=== PATIENT | male | born 1935 | race Caucasian/White ===

== ENCOUNTER 2018-10-02 06:31 | Inpatient (IN) | payer BC, OTHER ==
[2018-10-02] VITALS (10 sets, daily range): BP systolic 100–118; BP diastolic 56–73; PULSE 62–96; RESP 16–27; Ht 172.7 cm; Wt 68.0 kg
[~2018-10-02] VITALS: Ht 172.7 cm; Wt 68.0 kg
[2018-10-02] MEDS ORDERED: SODIUM CHLORIDE 0.9% 1L BAG IV* STA (06:42)
[2018-10-02] MEDS ORDERED: CEFEPIME 2GM/50 ML (PMX) 50 ML IVPB STA (06:42)
[2018-10-02] MEDS ORDERED: VANCOMYCIN 1 GM (PMX) 250 ML IVPB ONE (07:00)
[2018-10-02] MEDS ORDERED: KETOROLAC 15 MG INJ IV STA (07:18)
[2018-10-02] MEDS ORDERED: ACETAMINOPHEN 325 MG SUPP PR ONE (07:30)
--- NOTE | 2018-10-02 07:39 | ERD ---
ER Documentation Chief Complaint Chief Complaint Low oxygen saturation HPI This is an 82-year-old male with a past medical history of hypertension, hypothyroidism, brain cancer, neurologically devastated and mostly unresponsive at baseline, chronic respiratory failure status post tracheostomy, ventilator dependence, dysphagia status post G-tube placement who is now presenting for decreased oxygen saturation at his half-way facility. The patient was evaluated this morning and found to have a low O2 saturation. He was suctioned, but his saturation reportedly remained low. At that time, an ambulance was called. By the time the paramedics arrived, the patient's oxygen saturation had improved to the high 90s to 100% on his baseline O2 requirements via ventilation. The patient did feel warm to the paramedics, and there was concern for a temperature. The patient is febrile and tachycardic in the emergency department today. History and physical is limited secondary to chronic clinical condition. ROS All systems reviewed and are negative except as per history of present illness. Medications Home Meds Reported Medications Tramadol Hcl* (Ultram*) 50 Mg Tablet, 50 MG GTB BID PRN for PAIN MANAGEMENT, TAB 10/02/18 Magnesium Hydroxide* (Milk Of Magnesia*) 400 Mg/5 Ml Oral.susp, 30 ML GTB DAILY, ML 10/02/18 Magaldrate/Simethicone* (Mag-Al Plus Suspension*) 30 Ml Oral.susp, 30 ML GTB Q4 PRN for GASTROINTESTINAL UPSET, ML 10/02/18 Ondansetron Hcl* (Zofran*) 4 Mg Tablet, 4 MG GTB Q6H PRN for NAUSEA AND OR VOMITING, TAB 10/02/18 Pantoprazole Sodium (Protonix) 40 Mg Granpkt.dr, 40 MG GTB DAILY MIX CONTENTS WITH APPLE SAUCE THEN FLUSH WITH 30ML APPLE JUICE 10/02/18 Levothyroxine Sodium* (Levoxyl*) 50 Mcg Tablet, 50 MCG GTB BEFORE BREAKFAST, #30 TAB 10/02/18 Polyvinyl Alcohol (Tears Again) 15 Ml Drops, 1 DRP BOTH EYES TID, BOTTLE 10/02/18 Metoprolol Tartrate* (Lopressor*) 25 Mg Tab, 25 MG GTB Q8, #60 TAB HOLD FOR SBP <110 OR HR<60 10/02/18 Atorvastatin* (Atorvastatin*) 40 Mg Tablet, 40 MG GTB QHS, #30 TAB 10/02/18 Aspirin* (Aspirin*) 325 Mg Tablet, 325 MG GTB DAILY, TAB 10/02/18 Lactobacillus Acidophilus/Pect (Acidophilus-Pectin Capsule) 1 Each Capsule, 1 EACH GTB DAILY, CAP 10/02/18 Acetaminophen* (Acetaminophen*) 650 Mg Tablet, 650 MG GTB Q4 PRN for MILD PAIN LEVEL 1-3, #30 TAB FOR FEVER AND TRACH CHANGE 10/02/18 Acetaminophen* (Acetaminophen*) 500 MG Extra Strength Tablet, 1000 MG GTB Q4 PRN for MODERATE PAIN LEVEL 4-6, TAB 10/02/18 Zinc Sulfate* (Zinc Sulfate*) 220 Mg Cap, 220 MG GTB DAILY, CAP 10/02/18 Ascorbic Acid* (Vitamin C*) 500 Mg Capsule.sa, 500 MG GTB DAILY, CAP 10/02/18 Multivitamin with Minerals (Daily Vitamin Formula-Minerals) 1 Each Tablet, 1 EACH GTB DAILY, TAB 10/02/18 Amino Acids/Protein Hydrolys (Pro-Stat Awc Liquid) 30 Ml Liquid, 30 ML GTB DAILY SUGAR FREE 10/02/18 Na Phos,M-B/Na Phos,Di-Ba (ENEMA [id number]) 133 Ml Enema, 133 ML RC EVERY 2 DAYS PRN for CONSTIPATION, ENEMA 10/02/18 Bisacodyl (Dulcolax) 10 Mg Supp.rect, 10 MG RC DAILY PRN for CONSTIPATION, SUPP.RECT 10/02/18 Docusate Sodium* (Colace*) 100 Mg Capsule, 100 MG GTB BID, #60 CAP 10/02/18 Allergies Allergies: Coded Allergies: No Known Allergy (Unverified , 10/02/18) PMhx/Soc History of Surgery: Yes (Tracheostomy, gastrostomy) Anesthesia Reaction: No Hx Neurological Disorder: Yes (Brain cancer) Hx Respiratory Disorders: Yes (Chronic respiratory failure status post tracheostomy, ventilator dependence) Hx Cardiac Disorders: Yes (Hypertension) Hx Psychiatric Problems: No Hx Miscellaneous Medical Probl: Yes (Frequent falls, dysphagia status post gastrostomy, right clavicle fracture) Hx Alcohol Use: No Hx Substance Use: No Hx Tobacco Use: No Smoking Status: Unknown if ever smoked FmHx Family History: No diabetes Physical Exam Vitals Vital Signs Date Temp Pulse Resp B/P (MAP) Pulse Ox O2 O2 Flow FiO2 Time Delivery Rate 10/02/18 98.5 94 12 100/54 100 [place] 10:13 (69) l Ventilato r 10/02/18 98.8 95 14 106/59 100 [employer] 09:05 (75) l Ventilato r 10/02/18 98.9 106 16 108/61 100 [employer] 08:57 (77) l Ventilato r 10/02/18 39.6 07:43 10/02/18 85 25 95 40 06:43 10/02/18 103.2 111 28 101/66 100 06:40 (78) Physical Exam Const: No apparent distress, well-developed, well-nourished Head: Normocephalic, Atraumatic Eyes: Normal Conjunctiva. Right pupil is round and reactive. Left pupil is straight with an oblong nonreactive pupil. ENT: Normal External Ears, Nose and Mouth. Neck: Trachea midline, tracheostomy in place. Resp: Oxygenating in the mid to high 90s on his baseline ventilator settings. Coarse breath sounds bilaterally. Cardio: Regular rhythm. Tachycardia. No murmurs, rubs or gallops Abd: Gastrostomy tube in place. Soft, non tender, non distended. Normal bowel sounds Skin: No petechiae or rashes Back: Stage III sacral decubitus ulcer. No final step-offs or deformities. Ext: Atrophy. Right arm is in a sling secondary to a reported chronic right clavicle fracture. Neur: Minimal withdrawal on the left side to painful stimulus. Eyelids are open. Patient is nonverbal. This is reportedly his baseline. Result Diagram: 10/02/18 0703 10/02/18 0703 Results 24 hrs Laboratory Tests Test 10/02/18 06:54 10/02/18 07:03 10/02/18 07:15 10/02/18 08:37 POC Venous 2.8 mmol/L Lactate White Blood 11.0 10^3/ul Count Red Blood Count 3.31 10^6/ul Hemoglobin 8.9 g/dl Hematocrit 30.1 % Mean Corpuscular 90.9 fl Volume Mean Corpuscular 26.9 pg Hemoglobin Mean Corpuscular 29.6 g/dl Hemoglobin Dayanara nt Red Cell 15.3 % Distribution Width Platelet Count 359 10^3/UL Mean Platelet 10.8 fl Volume Immature 0.700 % Granulocytes % Neutrophils % 74.1 % Lymphocytes % 15.3 % Monocytes % 8.7 % Eosinophils % 0.7 % Basophils % 0.5 % Nucleated Red 0.0 /100WBC Blood Cells % Immature 0.080 10^3/ul Granulocytes # Neutrophils # 8.2 10^3/ul Lymphocytes # 1.7 10^3/ul Monocytes # 1.0 10^3/ul Eosinophils # 0.1 10^3/ul Basophils # 0.1 10^3/ul Nucleated Red 0.0 10^3/ul Blood Cells # Prothrombin Time 16.0 Sec Prothrombin Time 1.3 Ratio INR 1.27 International Normalized Ratio Activated 36.6 Sec Partial Thrombop last Time Sodium Level 144 mmol/L Potassium Level 4.0 mmol/L Chloride Level 105 mmol/L Carbon Dioxide 27 mmol/L Level Anion Gap 12 Blood Urea 30 mg/dl Nitrogen Creatinine 1.22 mg/dl Est Glomerular mL/min Filtrat Rate mL/min Glucose Level 134 mg/dl Calcium Level 8.2 mg/dl Total Bilirubin 0.5 mg/dl Direct Bilirubin 0.00 mg/dl Indirect 0.5 mg/dl Bilirubin Aspartate Amino 68 IU/L Transf (AST/SGOT ) Alanine 65 IU/L Aminotransferase (ALT/SGPT) Alkaline 128 IU/L Phosphatase Troponin I 0.039 ng/ml Total Protein 6.6 g/dl Albumin 2.7 g/dl Globulin 3.90 g/dl Albumin/Globulin 0.69 Ratio Blood Gas Blood arterial Specimen Source Arterial Blood 10/02/2018 7:40:2 Date Drawn 9 AM Arterial Blood 7.509 pH (Temp corrected) Arterial Blood 32.4 mmhg pCO2 (Temp correct) Arterial Blood 154.9 mmHG pO2 (Temp corrected) Arterial Blood 25.2 mmol/L HCO3 Arterial Blood 2.3 mmol/L Base Excess Arterial Blood 99.7 mmHG Oxygen Saturatio n Jeff Test ACCEPTAB Arterial Blood Right Radial Gas Puncture Site Arterial 1.1 % Blood Carboxyhem oglobin Arterial Blood 0.5 % Methemoglobin Blood Gas A-a O2 93.0 mmHg Differential Oxyhemoglobin 98.1 % Percent Blood Gas 37.0 C Temperature Blood Gas 12.0 Respiration Rate Blood Gas Actual 13 Respiration Rate Blood Gas VENT - AC Modality FiO2 40.0 % Blood Gas Tidal 450.0 mL Volume Blood Gas Low 5.0 cmH2O PEEP Setting Blood Gas [facility] Notified Whom Blood Gas 10/02/2018 7:47:1 Notified Time 2 AM Lactic Acid 2.4 mmol/L Level Current Medications Medications Dose Sig/Lemuel Start Time Status Last (Trade) Ordered Route PRN Stop Time Admin Dose Reason Admin Sodium 2,040 ml BOLUS OVER 2 10/02/18 DC 10/02/18 Chloride HOURS STAT 06:42 07:09 (NS) IV* 10/02/18 06:52 Cefepime HCl 50 ml @ ONCE STAT 10/02/18 DC 10/02/18 100 mls/hr IVPB 06:42 07:12 10/02/18 07:11 Vancomycin 250 ml @ ONCE ONCE 10/02/18 DC 10/02/18 HCl 125 mls/hr IVPB 07:00 07:44 10/02/18 08:59 325 mg ONCE ONCE 10/02/18 DC 10/02/18 Acetaminophen IL 07:30 07:43 (Tylenol 10/02/18 07:31 Supp) Ketorolac 15 mg ONCE STAT 10/02/18 DC 10/02/18 Tromethamine IV 07:18 07:44 (Toradol) 10/02/18 07:19 Ondansetron 4 mg ER BRIDGE 10/02/18 HCl (Zofran PRN IV 10:30 Inj) NAUSEA/VOMITI 10/03/18 10:29 NG 650 mg ER BRIDGE 10/02/18 Acetaminophen PRN PO 10:30 (Tylenol .MILD PAIN 10/03/18 10:29 Tab) 1-3 OR TEMP Procedures/MDM MDM The patient's presentation warrants further investigation. Previous medical records, if available, were reviewed. LABS The patient's laboratory testing was obtained and reviewed. No emergent treatment was required unless described below. CBC: Mild leukocytosis, potentially reactive as there is no left shift, though there are concerns of a systemic infection. Normocytic anemia, likely chronic. Normal platelet count. Chemistry: No E/o severe acidosis or alkalosis or renal failure or diabetic ketoacidosis. Transaminitis, potentially reactive. Elevated BUN with a BUN: Creatinine ratio of greater than 20: 1, concerning for dehydration. PT/INR: No E/o significant coagulopathy Lactate: E/o severe sepsis Troponin: No E/o acute ischemia Urine: Pending EKG EKG read by me: Rate/Rhythm: Sinus tachycardia at 116 bpm with PACs and PVCs Intervals: Normal QRS and QTc. Wide IL interval indicating a first-degree AV block. Incomplete right bundle branch block. Babb: Left axis deviation Impression: No evidence of acute ischemia. IMAGING Imaging and Radiology interpretation reviewed. CXR 1V Interpreted by me Soft Tissue: No acute abnormalities Bones: Right distal clavicular fracture that appears to be corticated. No other acute abnormalities Mediastinum/Cardiac Silhouette: Calcified aorta. Otherwise unremarkable. No widened mediastinum. Lungs: No acute abnormalities. Normal pulmonary vasculature. No pneumothorax. No pulmonary edema. Clear costal diaphragmatic angles. No pleural effusions. No opacity or consolidations concerning for pneumonia. TREATMENT/DISPOSITION The patient's initial presentation was for low O2 saturation. When the patient arrived, his oxygen saturation was stable, but he was tachycardic and febrile. I am concerned about sepsis. A septic work-up was completed which included a sepsis bolus and IV antibiotics. Respiratory etiology is certainly possibility, though I do not see evidence of pneumonia on the chest x-ray. The patient also has what appears to be a stage III sacral decubitus ulcer on the back. This does not appear infected, but could be a nidus of infection. SEPSIS NOTE SIRS Criteria: Fever, tachycardia, leukocytosis Infectious source: Unknown End organ damage indicated by: Lactate > 2.0 mmol/L, AHRF Sat < 92% without oxygen SEPSIS MANAGEMENT Time to recognize sepsis: 0642 Time to recognize severe sepsis: 0645 Time to recognize septic shock: No septic shock at this time. 3 HOUR BUNDLE Blood cultures x 2 before abx: Yes 30 ml/kg NS bolus completed Initial lactate 2.8 Repeat lactate 2.4 SEPTIC SHOCK ASSESSMENT: NO lactic acid > 4.0 NO persistent hypotension (SBP < 90 or 40 mmHg drop, MAP < 65) despite 30 L/kg IV fluid bolus CRITICAL CARE Critical care time 35 minutes Emergent fluid management while maintaining close respiratory support. Provision of immediate and broad-spectrum antibiotic therapy. Simultaneous assessment for possible sources in order to direct targeted therapy. Consideration for invasive and chemical support to prevent cardiopulmonary collapse. Critical care time is independent of procedures performed. ADMISSION The patient will be admitted to panel in accordance with the patient's insurance. The patient was accepted by Dr. Myles at 10:10 AM on October 02, 2018. Disclaimer: Inadvertent spelling and grammatical errors are likely due to EHR/dictation software use and do not reflect on the overall quality of patient care. Note that the electronic time recorded on this note does not necessarily reflect the actual time of the patient encounter. Departure Diagnosis: Primary Impression: Severe sepsis Additional Impressions: Fever Fever type: unspecified Qualified Codes: R50.9 - Fever, unspecified Tachycardia Leukocytosis Leukocytosis type: unspecified Qualified Codes: D72.829 - Elevated white blood cell count, unspecified Hypoxia Normocytic anemia Elevated BUN Transaminitis Hypoalbuminemia Lactic acidosis Condition: Serious JAKOB PEREZ MD Oct 02, 2018 07:29
[2018-10-02] MEDS ORDERED: DOCU-144 GTB (09:50)
[2018-10-02] MEDS ORDERED: BISA10SU55 RC (09:52)
[2018-10-02] MEDS ORDERED: NA P133E10 RC (09:53)
[2018-10-02] MEDS ORDERED: AMIN30LI5 GTB (09:53)
[2018-10-02] MEDS ORDERED: MULT-275 GTB (09:54)
[2018-10-02] MEDS ORDERED: ASCO500C7 GTB (09:55)
[2018-10-02] MEDS ORDERED: ZINC220C5 GTB (09:55)
[2018-10-02] MEDS ORDERED: ACET-141 GTB (09:57)
[2018-10-02] MEDS ORDERED: ACET-2047 GTB (09:57)
[2018-10-02] MEDS ORDERED: LACT1CAP4 GTB (10:00)
[2018-10-02] MEDS ORDERED: ASPI325T30 GTB (10:04)
[2018-10-02] MEDS ORDERED: ATOR40TA68 GTB (10:04)
[2018-10-02] MEDS ORDERED: METO-448 GTB (10:06)
[2018-10-02] MEDS ORDERED: LEVO50TA71 GTB (10:07)
[2018-10-02] MEDS ORDERED: POLY15DR25 BOTH EYES (10:07)
[2018-10-02] MEDS ORDERED: PANT40SU GTB (10:09)
[2018-10-02] MEDS ORDERED: ONDA4TAB8 GTB (10:10)
[2018-10-02] MEDS ORDERED: UDMYL GTB (10:10)
[2018-10-02] MEDS ORDERED: MAGN400O19 GTB (10:11)
[2018-10-02] MEDS ORDERED: TRAM50TA GTB (10:12)
[2018-10-02] MEDS ORDERED: ACETAMINOPHEN 325 MG TAB PO PRN (10:30)
[2018-10-02] MEDS ORDERED: ONDANSETRON 4 MG INJ IV PRN (10:30)
[2018-10-02] MEDS ORDERED: VANCOMYCIN IV PER PHARMACY XX SCH (11:30)
[2018-10-02] MEDS ORDERED: SOD CHLORIDE 0.9% 1,000 ML IV ONE (11:30)
[2018-10-02] MEDS ORDERED: NACL 0.9% 3 ML SYG IV SCH (13:30)
[2018-10-02] MEDS ORDERED: HYDROmorphONE 0.5 MG/0.5 ML SYG IV PRN (13:30)
[2018-10-02] MEDS: SOD CHLORIDE 0.45% 1,000 ML IV SCH (15:41)
[2018-10-02] MEDS: PIPER-TAZO 3.375 GM IV (PMX) 100 ML IVPB SCH ×2 (15:41→21:19)
--- NOTE | 2018-10-02 16:50 | HP ---
Date/Time of Note Date/Time of Note DATE: 10/02/18 TIME: 16:46 Assessment/Plan VTE Prophylaxis SCD applied (from Nsg): Yes Pharmacological prophylaxis: heparin Lines/Catheters IV Catheter Type (from Nrsg): Saline Lock Urinary Cath still in place: Yes Reason Cath still needed: urinary retention Assessment/Plan Hospital Course Alert, nonverbal EOMI intact Withdraws to pain Spontaneous movements thorughout MV via trach RRR CTAB Soft nt nd warm no edema PEG A/P 82 yo male with reported history of brain neoplasm though details unknown, chronic encephelopahty and respiratory failure on MV via trach with PEG who presented form skilled nursing with sepsis Sepsis: - Unclear source - Treat wtih vanco/zosyn for now - Follow up cultures Chronic respiratory failure: - Continue MV via trach Brain neoplasm: - Will obtain further collateral - Consider repeat imaging Chronic encephelopathy: - Unclear baseline Full code for now, I cannot reach any family members Result Diagram: 10/02/18 0703 10/02/18 0703 Results 24hrs Laboratory Tests Test 10/02/18 06:54 10/02/18 07:03 10/02/18 07:15 10/02/18 08:37 POC Venous 2.8 *H Lactate White Blood Count 11.0 H Red Blood Count 3.31 L Hemoglobin 8.9 L Hematocrit 30.1 L Mean Corpuscular 90.9 Volume Mean Corpuscular 26.9 L Hemoglobin Mean Corpuscular 29.6 L Hemoglobin Concen t Red Cell 15.3 H Distribution Width Platelet Count 359 Mean Platelet 10.8 H Volume Immature 0.700 H Granulocytes % Neutrophils % 74.1 Lymphocytes % 15.3 Monocytes % 8.7 Eosinophils % 0.7 Basophils % 0.5 Nucleated Red 0.0 Blood Cells % Immature 0.080 H Granulocytes # Neutrophils # 8.2 H Lymphocytes # 1.7 Monocytes # 1.0 H Eosinophils # 0.1 Basophils # 0.1 Nucleated Red 0.0 Blood Cells # Prothrombin Time 16.0 H Prothrombin Time 1.3 Ratio INR International 1.27 Normalized Ratio Activated 36.6 H Partial Thrombopl ast Time Sodium Level 144 Potassium Level 4.0 Chloride Level 105 Carbon Dioxide 27 Level Anion Gap 12 Blood Urea 30 H Nitrogen Creatinine 1.22 Est Glomerular Filtrat Rate mL/min Glucose Level 134 Calcium Level 8.2 L Total Bilirubin 0.5 Direct Bilirubin 0.00 Indirect 0.5 Bilirubin Aspartate Amino 68 H Transf (AST/SGOT) Alanine 65 Aminotransferase (ALT/SGPT) Alkaline 128 H Phosphatase Troponin I 0.039 Total Protein 6.6 Albumin 2.7 L Globulin 3.90 H Albumin/Globulin 0.69 Ratio Blood Gas Blood arterial Specimen Source Arterial Blood 10/02/2018 7:40:2 Date Drawn 9 AM Arterial Blood pH 7.509 H (Temp corrected) Arterial Blood 32.4 L pCO2 (Temp correct) Arterial Blood 154.9 H pO2 (Temp corrected) Arterial Blood 25.2 HCO3 Arterial Blood 2.3 Base Excess Arterial Blood 99.7 Oxygen Saturation Jeff Test ACCEPTAB Arterial Blood Right Radial Gas Puncture Site Arterial 1.1 Blood Carboxyhemo globin Arterial Blood 0.5 Methemoglobin Blood Gas A-a O2 93.0 H Differential Oxyhemoglobin 98.1 Percent Blood Gas 37.0 Temperature Blood Gas 12.0 Respiration Rate Blood Gas Actual 13 Respiration Rate Blood Gas VENT - AC Modality FiO2 40.0 Blood Gas Tidal 450.0 Volume Blood Gas Low 5.0 PEEP Setting Blood Gas [facility] Notified Whom Blood Gas 10/02/2018 7:47:1 Notified Time 2 AM Lactic Acid Level 2.4 *H Test 10/02/18 10:40 10/02/18 11:43 Urine Color MAGGIE Urine Clarity CLOUDY A Urine pH 5.0 Urine Specific 1.023 [place] Urine Ketones TRACE A Urine Nitrite NEGATIVE Urine Bilirubin NEGATIVE Urine 1+ H Urobilinogen Urine Leukocyte 2+ H Esterase Urine Microscopic 90 H RBC Urine Microscopic 132 H WBC Urine Squamous FEW Epithelial Cells Urine Bacteria FEW A Urine Hyaline FEW A Casts Urine Mucus FEW A Urine Hemoglobin 2+ H Urine Glucose NEGATIVE Urine Total 1+ H Protein Lactic Acid Level 1.1 HPI/ROS Admit Date/Time Admit Date/Time Oct 02, 2018 at 12:38 Hx of Present Illness 82 yo male with reported history of brain neoplasm, chronic encephelopathy and respiratory failure brought from skilled nursing for fevers and lethargy Patient nonverbal. Unable to provide history. Family not available at bedside and numbers listed nonfunctional Apparently patient had fever of 103 at skilled nursing so transferred here ROS Subjective hx not possible: pt non-verbal PMH/Family/Social Past Medical History Brain neoplasm Medications Current Medications Vancomycin HCl (Vanco Iv Per Pharmacy) VANCOMYCIN PER PHARMACY PER PROTOCOL XX ; Start 10/02/18 at 11:30 Piperacillin Sod/ Tazobactam Sod 100 ml @ 200 mls/hr Q8 IVPB Last administered on 10/02/18at 15:41; Admin Dose 200 MLS/HR; Start 10/02/18 at 14:00 Vancomycin HCl 250 ml @ 125 mls/hr Q24H IVPB ; Start 10/02/18 at 22:00 Sodium Chloride 1,000 ml @ 75 mls/hr [id number] IV Last administered on 10/02/18at 15:41; Admin Dose 75 MLS/HR; Start 10/02/18 at 13:06 IV Flush (NS 3 ml) 3 ml PER PROTOCOL IV ; Start 10/02/18 at 13:30 Hydromorphone HCl (Dilaudid) 0.5 mg Q4H PRN IV .SEVERE PAIN 7-10; Start 10/02/18 at 13:30 Coded Allergies: No Known Allergy (Unverified , 10/02/18) Past Surgical History Past Surgical Hx: no surgical history Family History Significant Family History: no pertinent family hx Social History Alcohol Use: none Smoking Status: Unknown if ever smoked Drug Use: none Exam/Review of Systems Vital Signs Vitals Vital Signs Date Temp Pulse Resp B/P (MAP) Pulse Ox O2 O2 Flow FiO2 Time Delivery Rate 10/02/18 95 14:42 10/02/18 98.2 16 100/62 100 Mechanical 13:15 (75) Ventilator 10/02/18 40 11:05 ADAL STAPLETON MD Oct 02, 2018 16:50
[2018-10-02] MEDS: VANCOMYCIN 1 GM 250 ML IVPB SCH (22:07)
[2018-10-03] VITALS (22 sets, daily range): BP systolic 111–139; BP diastolic 49–74; PULSE 82–144; RESP 14–28
[2018-10-03] MEDS: SOD CHLORIDE 0.45% 1,000 ML IV SCH ×2 (02:26→11:21)
[2018-10-03] MEDS: PIPER-TAZO 3.375 GM IV (PMX) 100 ML IVPB SCH ×3 (06:08→21:17)
[2018-10-03] MEDS: LEVOTHYROXINE 50 MCG TAB GTB SCH (06:10)
--- NOTE | 2018-10-03 14:55 | PN ---
Date/Time of Note Date/Time of Note DATE: 10/03/18 TIME: 14:55 Assessment/Plan VTE Prophylaxis Risk score (from Nsg)>0 risk: 6 SCD applied (from Nsg): Yes Pharmacological prophylaxis: heparin Lines/Catheters IV Catheter Type (from Nrsg): Saline Lock Urinary Cath still in place: Yes Reason Cath still needed: urinary retention Assessment/Plan Hospital Course Alert, nonverbal EOMI intact Withdraws to pain Spontaneous movements thorughout MV via trach RRR CTAB Soft nt nd warm no edema PEG A/P 82 yo male with reported history of brain neoplasm though details unknown, chronic encephelopahty and respiratory failure on MV via trach with PEG who presented form detention with sepsis Sepsis: - Suspect urinary source - Continue wtih vanco/zosyn for now - Follow up cultures Chronic respiratory failure: - Continue MV via trach Brain neoplasm: - Will obtain further collateral - Consider repeat imaging Chronic encephelopathy: - Unclear baseline Full code for now Result Diagram: 10/03/18 0559 10/03/18 0559 Results 24hrs Laboratory Tests Test 10/03/18 05:59 White Blood Count 10.6 Red Blood Count 2.77 L Hemoglobin 7.5 L Hematocrit 24.8 L Mean Corpuscular Volume 89.5 Mean Corpuscular Hemoglobin 27.1 L Mean Corpuscular Hemoglobin Concent 30.2 L Red Cell Distribution Width 15.7 H Platelet Count 298 Mean Platelet Volume 10.5 H Immature Granulocytes % 0.800 H Neutrophils % 69.7 Lymphocytes % 18.0 Monocytes % 7.7 Eosinophils % 3.4 Basophils % 0.4 Nucleated Red Blood Cells % 0.0 Immature Granulocytes # 0.080 H Neutrophils # 7.4 Lymphocytes # 1.9 Monocytes # 0.8 Eosinophils # 0.4 Basophils # 0.0 Nucleated Red Blood Cells # 0.0 Sodium Level 147 H Potassium Level 3.4 L Chloride Level 112 H Carbon Dioxide Level 23 Anion Gap 12 Blood Urea Nitrogen 28 H Creatinine 0.99 Est Glomerular Filtrat Rate mL/min Glucose Level 87 # Hemoglobin A1c 5.5 Calcium Level 7.6 L Total Bilirubin 0.5 Direct Bilirubin 0.00 Indirect Bilirubin 0.5 Aspartate Amino Transf (AST/SGOT) 46 Alanine Aminotransferase (ALT/SGPT) 51 Alkaline Phosphatase 100 Total Protein 5.4 #L Albumin 2.2 L Globulin 3.20 Albumin/Globulin Ratio 0.68 Subjective 24 Hr Interval Summary Free Text/Dictation Fevers resolved HD stable Exam/Review of Systems Exam Vitals Vital Signs Date Temp Pulse Resp B/P (MAP) Pulse Ox O2 O2 Flow FiO2 Time Delivery Rate 10/03/18 102 12:00 10/03/18 100.3 22 139/71 100 11:47 (93) 10/03/18 30 08:00 10/03/18 Mechanica 04:00 l Ventilato r Intake and Output 10/02/18 10/02/18 10/03/18 1515:00 23:00 07:00 IntakeIntake Total 3340 ml 100 ml 1700 ml OutputOutput Total 350 ml 400 ml BalanceBalance 3340 ml -250 ml 1300 ml Results Results 24hrs Laboratory Tests Test 10/03/18 05:59 White Blood Count 10.6 Red Blood Count 2.77 L Hemoglobin 7.5 L Hematocrit 24.8 L Mean Corpuscular Volume 89.5 Mean Corpuscular Hemoglobin 27.1 L Mean Corpuscular Hemoglobin Concent 30.2 L Red Cell Distribution Width 15.7 H Platelet Count 298 Mean Platelet Volume 10.5 H Immature Granulocytes % 0.800 H Neutrophils % 69.7 Lymphocytes % 18.0 Monocytes % 7.7 Eosinophils % 3.4 Basophils % 0.4 Nucleated Red Blood Cells % 0.0 Immature Granulocytes # 0.080 H Neutrophils # 7.4 Lymphocytes # 1.9 Monocytes # 0.8 Eosinophils # 0.4 Basophils # 0.0 Nucleated Red Blood Cells # 0.0 Sodium Level 147 H Potassium Level 3.4 L Chloride Level 112 H Carbon Dioxide Level 23 Anion Gap 12 Blood Urea Nitrogen 28 H Creatinine 0.99 Est Glomerular Filtrat Rate mL/min Glucose Level 87 # Hemoglobin A1c 5.5 Calcium Level 7.6 L Total Bilirubin 0.5 Direct Bilirubin 0.00 Indirect Bilirubin 0.5 Aspartate Amino Transf (AST/SGOT) 46 Alanine Aminotransferase (ALT/SGPT) 51 Alkaline Phosphatase 100 Total Protein 5.4 #L Albumin 2.2 L Globulin 3.20 Albumin/Globulin Ratio 0.68 Medications Medication Current Medications Vancomycin HCl (Vanco Iv Per Pharmacy) VANCOMYCIN PER PHARMACY PER PROTOCOL XX ; Start 10/02/18 at 11:30 Piperacillin Sod/ Tazobactam Sod 100 ml @ 200 mls/hr Q8 IVPB Last administered on 10/03/18at 13:32; Admin Dose 200 MLS/HR; Start 10/02/18 at 14:00 Vancomycin HCl 250 ml @ 125 mls/hr Q24H IVPB Last administered on 10/02/18at 22:07; Admin Dose 125 MLS/HR; Start 10/02/18 at 22:00 Sodium Chloride 1,000 ml @ 75 mls/hr [id number] IV Last administered on 10/03/18at 11:21; Admin Dose 75 MLS/HR; Start 10/02/18 at 13:06 IV Flush (NS 3 ml) 3 ml PER PROTOCOL IV ; Start 10/02/18 at 13:30 Hydromorphone HCl (Dilaudid) 0.5 mg Q4H PRN IV .SEVERE PAIN 7-10; Start 10/02/18 at 13:30 Levothyroxine Sodium (Synthroid) 50 mcg BEFORE BREAKFAST GTB Last administered on 10/03/18at 06:10; Admin Dose 50 MCG; Start 10/03/18 at 07:00 ADAL STAPLETON MD Oct 03, 2018 14:55
[2018-10-03] MEDS ORDERED: POTASSIUM CHLORIDE 20 MEQ POWDER FOR ORAL SOLN GTB ONE (16:30)
[2018-10-03] MEDS: traMADol 50 MG TAB PEG SCH (21:16)
[2018-10-03] MEDS: VANCOMYCIN 1 GM 250 ML IVPB SCH (22:15)
[2018-10-04] VITALS (42 sets, daily range): BP systolic 84–129; BP diastolic 45–81; PULSE 72–172; RESP 0–28
[2018-10-04] MEDS: SOD CHLORIDE 0.45% 1,000 ML IV SCH ×2 (06:10→20:16)
[2018-10-04] MEDS: PIPER-TAZO 3.375 GM IV (PMX) 100 ML IVPB SCH ×3 (06:10→21:35)
[2018-10-04] MEDS: LEVOTHYROXINE 50 MCG TAB GTB SCH (06:10)
[2018-10-04] MEDS: traMADol 50 MG TAB PEG SCH ×2 (08:12→20:12)
[2018-10-04] MEDS ORDERED: METOPROLOL 25 MG TAB GTB ONE (09:30)
[2018-10-04] MEDS ORDERED: METOPROLOL 5 MG INJ IV ONE ×3 (09:30→16:00)
[2018-10-04] MEDS ORDERED: AMIODARONE 150MG/D5W BOLUS 100 ML IV ONE (10:00)
[2018-10-04] MEDS ORDERED: AMIODARONE 900 MG in DEXTROSE 5% 482 ML IV SCH (10:30)
[2018-10-04] MEDS ORDERED: DILTIAZEM 25 MG INJ IV ONE ×2 (16:30→17:30)
[2018-10-04] MEDS ORDERED: DILTIAZEM-D5W 125MG/125ML DRIP 125 ML IV SCH (17:30)
--- NOTE | 2018-10-04 17:56 | PN ---
Date/Time of Note Date/Time of Note DATE: 10/04/18 TIME: 17:48 Assessment/Plan VTE Prophylaxis Risk score (from Ns)>0 risk: 9 SCD applied (from Ns): Yes SCD contraindicated: low risk/ambulating Pharmacological prophylaxis: LMWH Lines/Catheters IV Catheter Type (from [facility]): Saline Lock Urinary Cath still in place: Yes Reason Cath still needed: urinary retention Assessment/Plan Hospital Course Hospitalist coverage A/P 1. Sepsis ukn etio. Urine vs colitis. Follow-up on cultures cont antibiotics 2. Indwelling Lugo catheter status. Change tomorrow 3. Recent diarrhea. tube feeds vs colitis. R/o C diff 4. Malnutrition cont tube feeds 5. New onset A fib RVR, start rate control anticoagulation. Echo TSH troponin pending 6. Anemia 7. Chr respiratory failure on vent, consult pulmonary as needed cont aerosols/ pulmonary hygiene 8. Ftt, low air loss mattress, change position every 2 hours 9. Brain Ca sp surgery 2 mnths ago at [facility]. S: fever; lugo.for snf. Updated son. O: a fib rvr PE No pallor; trach c/d/i irreg s1s2 no mrg ctab bs+ nt nd; no r/r/g peg c/d/i no edema; hypotonia Result Diagram: 10/03/1859 10/03/1859 Exam/Review of Systems Exam Vitals Vital Signs Date Temp Pulse Resp B/P (MAP) Pulse Ox O2 O2 Flow FiO2 Time Delivery Rate 10/04/18 147 21 100 30 17:20 10/04/18 97.9 93/54 (67) 15:54 10/04/18 Mechanical 04:38 Ventilator Trach Collar Intake and Output 10/03/18 10/03/18 10/04/18 1515:00 23:00 07:00 IntakeIntake Total 1630 ml 1350 ml OutputOutput Total 300 ml 350 ml BalanceBalance 1330 ml 1000 ml Medications Medication Current Medications Vancomycin HCl (Vanco Iv Per Pharmacy) VANCOMYCIN PER PHARMACY PER PROTOCOL XX ; Start 10/02/18 at 11:30 Piperacillin Sod/ Tazobactam Sod 100 ml @ 200 mls/hr Q8 IVPB Last administered on 10/04/18at 13:12; Admin Dose 200 MLS/HR; Start 10/02/18 at 14:00 Vancomycin HCl 250 ml @ 125 mls/hr Q24H IVPB Last administered on 10/03/18at 22:15; Admin Dose 125 MLS/HR; Start 10/02/18 at 22:00 Sodium Chloride 1,000 ml @ 75 mls/hr [id number] IV Last administered on 10/04/18at 06:10; Admin Dose 75 MLS/HR; Start 10/02/18 at 13:06 IV Flush (NS 3 ml) 3 ml PER PROTOCOL IV ; Start 10/02/18 at 13:30 Hydromorphone HCl (Dilaudid) 0.5 mg Q4H PRN IV .SEVERE PAIN 7-10; Start 10/02/18 at 13:30 Levothyroxine Sodium (Synthroid) 50 mcg BEFORE BREAKFAST GTB Last administered on 10/04/18at 06:10; Admin Dose 50 MCG; Start 10/03/18 at 07:00 Tramadol HCl (Ultram) 50 mg BID PEG Last administered on 10/04/18at 08:12; Admin Dose 50 MG; Start 10/03/18 at 21:00 Miscellaneous Information (*Rx Drug Level Order Reminder*) VANCO TR 2100 ONCE XX ; Start 10/05/18 at 21:00; Stop 10/05/18 at 21:01 Diltiazem HCl 125 ml @ 5 mls/hr Q24H IV Last administered on 10/04/18at 17:34; Admin Dose 5 MLS/HR; Start 10/04/18 at 17:30 ADONIS BURRELL MD Oct 04, 2018 17:56
[2018-10-04] MEDS ORDERED: SOD CHLORIDE 0.9% 500 ML IV ONE ×2 (18:00→20:00)
[2018-10-04] MEDS ORDERED: ENOXAPARIN 80 MG/0.8 ML SYG SC SCH (18:00)
[2018-10-04] MEDS: POTASSIUM CHLORIDE 20 MEQ POWDER FOR ORAL SOLN GTB SCH (18:10)
[2018-10-04] MEDS: FAMOTIDINE 20 MG TAB GTB SCH (20:12)
[2018-10-04] MEDS: VANCOMYCIN 1 GM 250 ML IVPB SCH (22:09)
[2018-10-05] VITALS (63 sets, daily range): BP systolic 79–128; BP diastolic 52–93; PULSE 80–198; RESP 0–36
[2018-10-05] MEDS: VANCOMYCIN HCL 250 MG/5ML POSYG GTB SCH ×4 (00:09→17:42)
[2018-10-05] MEDS: PIPER-TAZO 3.375 GM IV (PMX) 100 ML IVPB SCH ×2 (06:20→14:20)
[2018-10-05] MEDS: LEVOTHYROXINE 50 MCG TAB GTB SCH (06:20)
[2018-10-05] MEDS ORDERED: HEPARIN 1000 UNITS/ML 10 ML INJ IV PRN (07:30)
[2018-10-05] MEDS ORDERED: HEPARIN 1000 UNITS/ML 10 ML INJ IV ONE (07:30)
[2018-10-05] MEDS: SOD CHLORIDE 0.45% 1,000 ML IV SCH (07:46)
[2018-10-05] MEDS: HEPARIN 1000 UNITS/ML 10 ML INJ IV PRN ×2 (09:22→22:12)
[2018-10-05] MEDS: HEPARIN 25000 UNITS/250 ML 250 ML IV SCH ×2 (09:25→17:52)
--- NOTE | 2018-10-05 09:43 | PN ---
Date/Time of Note Date/Time of Note DATE: 10/05/18 TIME: 09:30 Assessment/Plan VTE Prophylaxis Risk score (from Ns)>0 risk: 11 SCD applied (from Ns): Yes Pharmacological prophylaxis: heparin Lines/Catheters IV [facility]atheter Type (from [facility]): Peripheral IV Urinary Cath still in place: Yes Reason Cath still needed: other (indicate) (monitor I&O) Assessment/Plan Hospital Course Assessment and plan 1. Sepsis. Urine culture did show pseudomonas aeruginosa. ID consult to follow. 2. Recent diarrhea. Stool C. difficile is pending. Monitor for now. 3. Suspect malnutrition . Continue tube feedings. 4. A. fib with RVR. s/p diltiazem drip. Improved at present. Ecommerce Manager consultation pending clinical course. 5. Anemia. Likely of chronic disease. Monitor H&H. Transfuse blood products as needed. 6. History of chronic respiratory failure on ventilator. Continue pulmonary hygiene. Consideration of [facility] transfer. 7. History of brain cancer status post surgery. Continue supportive care for now. Patient does have reported chronic encephalopathy. Suspect baseline at present. 8. Thrombus within the right common femoral and proximal superficial femoral veins. Was placed on heparin drip last night. Monitor. Disposition and plan. Palliative care consult to follow. Will see for possible [place] transfer once more medically stable. Discussed POC with Dr. Salvador Critical CARE time: Greater than 40 minutes Result Diagram: 10/05/18 0807 10/05/18 0445 Results 24hrs Laboratory Tests Test 10/05/18 04:45 10/05/18 08:07 White Blood Count 9.6 9.7 Red Blood Count 3.05 L 3.08 L Hemoglobin 8.0 L 8.2 L Hematocrit 26.9 L 26.8 L Mean Corpuscular Volume 88.2 87.0 Mean Corpuscular Hemoglobin 26.2 L 26.6 L Mean Corpuscular Hemoglobin Concent 29.7 L 30.6 L Red Cell Distribution Width 16.0 H 16.1 H Platelet Count 391 # 362 Mean Platelet Volume 10.3 10.2 Immature Granulocytes % 1.000 H 1.200 H Neutrophils % 61.7 56.6 Lymphocytes % 25.6 28.7 Monocytes % 7.9 9.4 Eosinophils % 3.1 3.3 Basophils % 0.7 0.8 Nucleated Red Blood Cells % 0.0 0.0 Immature Granulocytes # 0.100 H 0.120 H Neutrophils # 5.9 5.5 Lymphocytes # 2.5 2.8 Monocytes # 0.8 0.9 Eosinophils # 0.3 0.3 Basophils # 0.1 0.1 Nucleated Red Blood Cells # 0.0 0.0 Prothrombin Time 17.8 H 17.3 H Prothrombin Time Ratio 1.4 1.4 INR International Normalized Ratio 1.46 1.40 Sodium Level 149 H Potassium Level 3.5 Chloride Level 119 H Carbon Dioxide Level 18 L Anion Gap 12 Blood Urea Nitrogen 17 # Creatinine 1.07 Est Glomerular Filtrat Rate mL/min Glucose Level 73 Lactic Acid Level 1.3 Calcium Level 7.6 L Phosphorus Level 3.0 Magnesium Level 2.1 Total Bilirubin 0.5 Direct Bilirubin 0.00 Indirect Bilirubin 0.5 Aspartate Amino Transf (AST/SGOT) 42 Alanine Aminotransferase (ALT/SGPT) 48 Alkaline Phosphatase 104 Troponin I 0.033 Total Protein 5.3 L Albumin 2.1 L Globulin 3.20 Albumin/Globulin Ratio 0.65 Thyroid Stimulating Hormone (TSH) 11.300 H Activated Partial Thromboplast Time 49.7 H Subjective 24 Hr Interval Summary Free Text/Dictation Remains on ventilator. Does not follow commands. Likely baseline. RN at bedside. Exam/Review of Systems Exam Vitals Vital Signs Date Temp Pulse Resp B/P (MAP) Pulse Ox O2 O2 Flow FiO2 Time Delivery Rate 10/05/18 92 08:00 10/05/18 98.7 25 110/63 98 Mechanical 07:00 (79) Ventilator 10/05/18 30 06:35 Intake and Output 10/04/18 10/04/18 10/05/18 1515:00 23:00 07:00 IntakeIntake Total 1080 ml 685 ml 910 ml OutputOutput Total 570 ml 195 ml BalanceBalance 1080 ml 115 ml 715 ml Constitutional: other (awake, but no purposeful response ) Head: normocephalic Neck: other (tracheostomy in place ) Respiratory: other (no obvious wheezing/rhonchi) Cardiovascular: other (regular rate ) Gastrointestinal: other (peg tube i place ) Musculoskeletal: other (contractures ble ) Neurological: No RF MICROWAVE ENGINEER II-XII intact, No nl mental status, No nl speech Results Results 24hrs Laboratory Tests Test 10/05/18 04:45 10/05/18 08:07 White Blood Count 9.6 9.7 Red Blood Count 3.05 L 3.08 L Hemoglobin 8.0 L 8.2 L Hematocrit 26.9 L 26.8 L Mean Corpuscular Volume 88.2 87.0 Mean Corpuscular Hemoglobin 26.2 L 26.6 L Mean Corpuscular Hemoglobin Concent 29.7 L 30.6 L Red Cell Distribution Width 16.0 H 16.1 H Platelet Count 391 # 362 Mean Platelet Volume 10.3 10.2 Immature Granulocytes % 1.000 H 1.200 H Neutrophils % 61.7 56.6 Lymphocytes % 25.6 28.7 Monocytes % 7.9 9.4 Eosinophils % 3.1 3.3 Basophils % 0.7 0.8 Nucleated Red Blood Cells % 0.0 0.0 Immature Granulocytes # 0.100 H 0.120 H Neutrophils # 5.9 5.5 Lymphocytes # 2.5 2.8 Monocytes # 0.8 0.9 Eosinophils # 0.3 0.3 Basophils # 0.1 0.1 Nucleated Red Blood Cells # 0.0 0.0 Prothrombin Time 17.8 H 17.3 H Prothrombin Time Ratio 1.4 1.4 INR International Normalized Ratio 1.46 1.40 Sodium Level 149 H Potassium Level 3.5 Chloride Level 119 H Carbon Dioxide Level 18 L Anion Gap 12 Blood Urea Nitrogen 17 # Creatinine 1.07 Est Glomerular Filtrat Rate mL/min Glucose Level 73 Lactic Acid Level 1.3 Calcium Level 7.6 L Phosphorus Level 3.0 Magnesium Level 2.1 Total Bilirubin 0.5 Direct Bilirubin 0.00 Indirect Bilirubin 0.5 Aspartate Amino Transf (AST/SGOT) 42 Alanine Aminotransferase (ALT/SGPT) 48 Alkaline Phosphatase 104 Troponin I 0.033 Total Protein 5.3 L Albumin 2.1 L Globulin 3.20 Albumin/Globulin Ratio 0.65 Thyroid Stimulating Hormone (TSH) 11.300 H Activated Partial Thromboplast Time 49.7 H Medications Medication Current Medications Vancomycin HCl (Vanco Iv Per Pharmacy) VANCOMYCIN PER PHARMACY PER PROTOCOL XX ; Start 10/02/18 at 11:30 Piperacillin Sod/ Tazobactam Sod 100 ml @ 200 mls/hr Q8 IVPB Last administered on 10/05/18at 06:20; Admin Dose 200 MLS/HR; Start 10/02/18 at 14:00 Vancomycin HCl 250 ml @ 125 mls/hr Q24H IVPB Last administered on 10/04/18 22:09; Admin Dose 125 MLS/HR; Start 10/02/18 at 22:00 Sodium Chloride 1,000 ml @ 75 mls/hr [id number] IV Last administered on 10/04/18 20:16; Admin Dose 75 MLS/HR; Start 10/02/18 at 13:06 IV Flush (NS 3 ml) 3 ml PER PROTOCOL IV ; Start 10/02/18 at 13:30 Hydromorphone HCl (Dilaudid) 0.5 mg Q4H PRN IV .SEVERE PAIN 7-10; Start 10/02/18 at 13:30 Levothyroxine Sodium (Synthroid) 50 mcg BEFORE BREAKFAST GTB Last administered on 10/05/18 06:20; Admin Dose 50 MCG; Start 10/03/18 at 07:00 Tramadol HCl (Ultram) 50 mg BID PEG Last administered on 10/04/18 20:12; Admin Dose 50 MG; Start 10/03/18 at 21:00 Miscellaneous Information (*Rx Drug Level Order Reminder*) VANCO TR 2100 ONCE XX ; Start 10/05/18 at 21:00; Stop 10/05/18 at 21:01 Diltiazem HCl 125 ml @ 5 mls/hr Q24H IV Last administered on 10/04/18 17:34; Admin Dose 5 MLS/HR; Start 10/04/18 at 17:30 Potassium Chloride (Potassium Chloride Pwd/Soln) 40 meq DAILY GTB Last administered on 10/04/18 18:10; Admin Dose 40 MEQ; Start 10/04/18 at 18:00 Vancomycin HCl (Vancomycin Oral Syringe) 125 mg Q6 GTB Last administered on 10/05/18 06:20; Admin Dose 125 MG; Start 10/05/18 at 00:00 Famotidine (Pepcid) 20 mg HS GTB Last administered on 10/04/18 20:12; Admin Dose 20 MG; Start 10/04/18 at 21:00 Heparin Sodium (Porcine) (Heparin (1000 Units/ml)) 5,400 unit PER PROTOCOL PRN IV aPTT<47; Start 10/05/18 at 07:30 Heparin Sodium (Porcine) (Heparin (1000 Units/ml)) 2,700 unit PER PROTOCOL PRN IV aPTT<47-57 Last administered on 10/05/18at 09:22; Admin Dose 2,700 UNIT; Start 10/05/18 at 07:30 Heparin Sodium (Porcine) 250 ml @ 0 mls/hr PER PROTOCOL IV Last administered on 10/05/18 09:25; Admin Dose 12 MLS/HR; Start 10/05/18 at 07:30 STARLA ALLEN NP Oct 05, 2018 09:43
[2018-10-05] MEDS: POTASSIUM CHLORIDE 20 MEQ POWDER FOR ORAL SOLN GTB SCH (09:55)
[2018-10-05] MEDS: traMADol 50 MG TAB PEG SCH ×2 (09:56→20:25)
[2018-10-05] MEDS: BALSAM PERU/CASTOR OIL 60 GM TUBE TOP SCH (12:55)
--- NOTE | 2018-10-05 15:16 | RADRPT ---
Echocardiogram Report Patient Name: KIMBERLEY MILLERPatient ID: [id number] : 1935 (82y 11m)Study Date: 10/05/2018 7:37:14 AM Gender: MAccession #: [id number] Tech: Héctor Wang RDCS Location: 112 Ref.Physician: ADONIS BURRELL Height(Cm): BSA: Weight(Kg): Quality: Technically Difficult StudyOrder Physician: ADONIS BURRELL Account #: Procedures: Echocardiographic Report: Transthoracic echocardiogram with complete 2D, M-Mode, and doppler examination. Indications: Atrial Fibrillation. Sepsis. Measurements: 2D/M Mode Doppler Measurement Value Normal Range Measurement Value Normal Range LVIDd 2D 4.2 [ 4.2 - 5.8 ] cm AV Peak Kemal 1.2 [ 100.0 - 170.0 ] cm/sec LVIDs 2D 4.0 [ 2.5 - 4.0 ] cm AV Peak PG 6.0 [ 2.0 - 9.0 ] mmHg LVPWd 2D 1.0 [ 0.6 - 1.0 ] cm LVOT Peak Kemal 0.7 [ 70.0 - 110.0 ] cm/sec IVSd 2D 1.0 [ 0.6 - 1.0 ] cm LVOT Peak PG 2.0 [ 2.0 - 6.0 ] mmHg AoR Diam 2D 3.3 [ 2.6 - 3.4 ] cm MV E Peak Kemal 0.9 [ 60.0 - 130.0 ] cm/sec EDV 2D 78.6 [ 62.0 - 150.0 ] ml MV A Peak Kemal 0.5 [ 100.0 - 120.0 ] cm/sec ESV 2D 70.4 [ 21.0 - 61.0 ] ml MV E/A 1.6 [ 0.8 - 1.5 ] ratio EF 2D 10.4 [ 52.0 - 72.0 ] percent MV Decel Time 176 [ 104 - 258 ] msec LA Dimen 2D 3.4 [ 3.0 - 4.0 ] cm Lat E` Kemal 0.1 [ 10.0 - 15.0 ] cm/sec Lateral E/E` 11.0 [ 1.0 - 2.0 ] ratio MV E/A 1.6 [ 0.8 - 1.5 ] ratio TR Peak Kemal 2.3 [ 100.0 - 280.0 ] cm/sec TR Peak PG 21.0 mmHg RVSP 29.0 [ 10.0 - 36.0 ] mmHg RA Pressure 8.0 mmHg Findings: Left Ventricle: Normal left ventricular cavity size. Normal left ventricular wall thickness. Moderate global left ventricular systolic dysfunction. Ejection fraction is visually estimated at 30-35 %. Abnormal Diastolic Function. Right Ventricle: Normal right ventricular size. Normal right ventricular systolic function. Left Atrium: The left atrium is normal in size. Right Atrium: The right atrium is normal in size. Mitral Valve: Mitral valve leaflets appear mildly thickened. Mild mitral annular calcification. Trace mitral regurgitation. Aortic Valve: Normal appearance of the aortic valve. No significant aortic stenosis or insufficiency. Tricuspid Valve: Normal appearance of the tricuspid valve. The estimated Peak RVSP is 29 mmHg. There is trace tricuspid regurgitation. Pulmonic Valve: Pulmonic valve not well visualized. Pericardium: Normal pericardium with no significant pericardial effusion. Aorta: Normal aortic root. IVC: Inferior vena cava without respiratory collapse, however, patient on ventilator. Conclusions: Normal left ventricular cavity size. Normal left ventricular wall thickness. Moderate global left ventricular systolic dysfunction. Ejection fraction is visually estimated at 30-35 %. Abnormal Diastolic Function. Mitral valve leaflets appear mildly thickened. Mild mitral annular calcification. Trace mitral regurgitation. Normal appearance of the tricuspid valve. The estimated Peak RVSP is 29 mmHg. There is trace tricuspid regurgitation. Electronically Signed By: Mukesh Zamarripa 2018-10-05 15:15:41 PDT
[2018-10-05] MEDS ORDERED: GENTAMICIN IV PER PHARMACY XX SCH (16:00)
--- NOTE | 2018-10-05 16:06 | CONS ---
DATE OF ADMISSION: 10/02/2018 DATE OF CONSULTATION: TYPE OF CONSULTATION: Pulmonary. REASON FOR CONSULTATION: Ventilator management. Thank you, Dr. Myles, for this consultation. HISTORY OF PRESENT ILLNESS: This is an unfortunate 82-year-old gentleman with history of brain neopl asm, vent-dependent respiratory failure, chronic encephalopathy, admitted on 10/02/2018 with worsenin g hypoxemia and transient desaturation. He was found to have pseudomonal urinary infection which req uired transfer to intensive care infection and initiation of vasopressor support, currently off vasop ressors, now hemodynamically stable. PAST MEDICAL HISTORY: Includes: 1. Brain tumor. 2. Vent dependent respiratory failure. 3. Chronic atrial fibrillation. 4. Dysphagia with G-tube. MEDICATIONS: Per chart. ALLERGIES: NONE. SOCIAL HISTORY: He is a nonsmoker. No alcohol, no history of drug use. FAMILY HISTORY: Noncontributory. SYSTEMS REVIEW: A 12-point review of systems was negative other than mentioned above. PHYSICAL EXAMINATION: GENERAL: Chronically ill appearing gentleman, appears comfortable at rest, in no acute distress. VITAL SIGNS: Currently afebrile, pulse is 100, blood pressure 110/60, O2 saturation 96%, FiO2 of 30% . NECK: Trach site is clean and intact. CARDIAC: S1, S2. No added sounds or murmurs. CHEST: Diminished air entry bilaterally. ABDOMEN: Soft, nontender. No guarding or rebound. EXTREMITIES: No cyanosis, clubbing or edema. NEUROLOGICAL: Unable to assess. LABORATORY DATA: White count now 9.7, hemoglobin 8.2, platelets 362. BUN 17, creatinine 1.07. INR 1.4. DIAGNOSTIC DATA: Dopplers show right common femoral and proximal superficial femoral vein thrombus, no deep vein thrombosis in the left lower extremity or right popliteal vein. IMPRESSION: 1. Pseudomonal urinary tract infection. 2. History of brain carcinoma. 3. Ventilator-dependent respiratory failure. 4. Common femoral, superficial vein thrombosis. PLAN OF CARE: 1. Continue vent support. 2. Antibiotics. 3. Tube feedings. 4. Anticoagulation. 5. DVT and GI prophylaxis. Dictated By: ELIOT ANN/BETZAIDA Conf#: [id number] DID#: [id number] CC: PATRICIA BRICE; ADAL MYLES MD; WES FLEMING MD;*[facility]*
[2018-10-05] MEDS: GENTAMICIN 100 MG/50 ML NS IVPB SCH (17:44)
--- NOTE | 2018-10-05 18:29 | CONS ---
DATE OF ADMISSION: 10/02/2018 DATE OF CONSULTATION: 10/05/2018 TYPE OF CONSULTATION: Infectious disease. REASON FOR CONSULTATION: Antibiotic management. HISTORY OF PRESENT ILLNESS: Justin Harrison is an 82-year-old male who has numerous problems and comes in with low oxygen saturation. His past problems include: 1. Hypertension. 2. Hypothyroidism. 3. Brain cancer. The patient is neurologically devastated and mostly unresponsive. 4. Chronic respiratory failure, status post tracheostomy, ventilator dependent. 5. Dysphagia, status post G-tube placement. He presents with decreased oxygen saturation from snf facility. The patient was suctione d and he was brought into the emergency room where his oxygen saturation was improved to between 90% and 100% baseline. The patient was febrile and tachycardic. His past problems are as noted, he is s tatus post tracheostomy and gastrostomy. He has a history of brain cancer, chronic respiratory failu re, status post tracheostomy. He is hypertensive. He had frequent falls prior. He has history of r ight clavicle fracture and he has gastrostomy. FAMILY HISTORY: Noncontributory. SOCIAL HISTORY: Does not smoke, drink or abuse drugs. ALLERGIES: NONE TO PENICILLIN, SULFA OR FOODS. MEDICATIONS: Per chart. REVIEW OF SYSTEMS: Noncontributory. HOSPITAL COURSE: On admission, his temperature was 103.2, his pulse was 111, blood pressure 101/66 a nd respiration of 28, so he had systemic inflammatory response syndrome. His white count was 11,000 with 74% neutrophils, H and H of 8.9 and 30.1, platelet count 359. His BUN and creatinine is 30/1.22 . Glucose was 134. As noted, the patient has neoplasm. He has chronic encephalopathy, respiratory failure on mechanical ventilation. His urine culture grew out Pseudomonas aeruginosa on 10/02/2018 s ensitive to virtually everything and was only 20,000 to 30,000 sensitive to cefepime and ceftazidime. The patient is currently on vancomycin and Zosyn. Chest x-ray shows that lungs are clear, nondispl aced fracture involving the distal right clavicle of uncertain acuity. The patient was seen by Dr. Slime valiente and by Dr. Gilbert. The patient had urinary retention and Mcintyre catheter was placed. He has recent diarrhea, rule out Clostridium difficile, new onset of atrial fibrillation on 10/03/2018, started on anticoagulation, brain cancer, status post surgery 2 months ago at [facility]. H is Clostridium difficile is now positive. The patient is on oral vancomycin 125 mg q.6 in addition t o IV vancomycin and Zosyn. PHYSICAL EXAMINATION: GENERAL: The patient is awake without purposeful movements. He has a trach, PEG, Mcintyre catheter. SKIN: Without generalized rash. HEENT: Within normal limits. NECK: Supple. He has tracheostomy in place. LYMPH NODES: None palpable. CHEST: Decreased breath sounds at the bases. HEART: Without murmur or gallop. ABDOMEN: Soft, nontender without organosplenomegaly or masses. He has a G-tube in place. EXTREMITIES: Without cyanosis, clubbing or edema. RECTAL AND GENITAL: Exam is deferred. Mcintyre catheter. NEUROLOGICAL: The patient has normal speech. He moves all extremities. IMPRESSION AND PLAN: The patient now is on vancomycin, Zosyn and he has Clostridium difficile. I wi ll repeat his urine. Switch him from Zosyn to gentamicin. I am going to discontinue his IV vancomyc in and continue the oral vancomycin. I will dictate my findings to the hospitalist. Dictated By: WES FLEMING MD, JD/BETZAIDA Conf#: [id number] DID#: [id number] CC: ADAL STAPLETON MD; PATRICIA BRICE;*[facility]*
[2018-10-05] MEDS ORDERED: DILTIAZEM-D5W 125MG/125ML DRIP 125 ML IV SCH (18:30)
[2018-10-05] MEDS: metroNIDAZOLE 500 MG/NS (PMX) 100 ML IVPB SCH (19:13)
[2018-10-05] MEDS ORDERED: METOPROLOL 5 MG INJ IV ONE (19:30)
[2018-10-05] MEDS: POTASSIUM CHLORIDE 100 ML IVPB SCH ×2 (20:24→22:12)
[2018-10-05] MEDS: FAMOTIDINE 20 MG TAB GTB SCH (20:25)
[2018-10-05] MEDS ORDERED: AMIODARONE 150MG/D5W BOLUS 100 ML IV ONE (21:30)
[2018-10-05] MEDS ORDERED: AMIODARONE 900 MG in DEXTROSE 5% 482 ML IV SCH (22:00)
[2018-10-06] VITALS (51 sets, daily range): BP systolic 90–134; BP diastolic 59–83; PULSE 75–94; RESP 13–29
[2018-10-06] MEDS: VANCOMYCIN HCL 250 MG/5ML POSYG GTB SCH ×4 (00:16→17:19)
[2018-10-06] MEDS: metroNIDAZOLE 500 MG/NS (PMX) 100 ML IVPB SCH ×2 (00:17→05:52)
[2018-10-06] MEDS: LEVOTHYROXINE 50 MCG TAB GTB SCH (06:00)
[2018-10-06] MEDS: HEPARIN 25000 UNITS/250 ML 250 ML IV SCH (06:53)
[2018-10-06] MEDS: traMADol 50 MG TAB PEG SCH ×2 (08:09→22:24)
[2018-10-06] MEDS: POTASSIUM CHLORIDE 20 MEQ POWDER FOR ORAL SOLN GTB SCH (08:09)
[2018-10-06] MEDS: BALSAM PERU/CASTOR OIL 60 GM TUBE TOP SCH (08:09)
--- NOTE | 2018-10-06 09:21 | CONS ---
Assessment/Plan Assessment/Plan Hospital Course (Demo Recall) Paroxysmal atrial fibrillation: Now converted on amiodarone. Was already on heparin for DVT but will check head CT first to assess risk of anticoagulation. DVT: right femoral. On heparin, but as above, check head CT. If not an anticoagulation candidate, can consider IVC filter though at that point, should have goals of care discussion with family Cardiomyopathy: EF 35%, ?etiology. Not a candidate for evaluation UTI C diff colitis Sepsis Chronic VDRF Brain tumor Chronic encephalopathy -check head CT -if ok to anticoagulate, resume heparin after. Then eventually Eliquis or Xarelto -continue amiodarone drip x 24 hrs. If remains in afib, switch to amiodarone 400mg BID tomorrow to continue load -start metoprolol succinate 25mg as tolerated -antibiotics per ID Consultation Date/Type/Reason Admit Date/Time Oct 02, 2018 at 12:38 Date of Consultation: Oct 06, 2018 Type of Consult Cardiology Reason for Consultation AFib with RVR Requesting Provider: VIRGIE WOLF Date/Time of Note DATE: 10/06/18 TIME: 09:08 Hx of Present Illness 82 yo M with a h/o brain tumor,chronic encephalopathy, VDRF, who presented from SNF with fevers and was found to have sepsis due to UTI and c diff. In the course of his stay he was also found to have a right femoral DVT for which he was started on a heparin drip.. Echo here showed an EF of 35%. Yesterday evening he converted to afib with RVR. He was started on a diltiazem drip without much effect. He was then started on an amiodarone drip which eventually converted him to sinus. The pt is comatose and nonverbal.No family at bedside. unable to obtain Past Medical History per hpi Home Meds Reported Medications Tramadol Hcl* (Ultram*) 50 Mg Tablet, 50 MG GTB BID PRN for PAIN MANAGEMENT, TAB 10/02/18 Magnesium Hydroxide* (Milk Of Magnesia*) 400 Mg/5 Ml Oral.susp, 30 ML GTB DAILY, ML 10/02/18 Magaldrate/Simethicone* (Mag-Al Plus Suspension*) 30 Ml Oral.susp, 30 ML GTB Q4 PRN for GASTROINTESTINAL UPSET, ML 10/02/18 Ondansetron Hcl* (Zofran*) 4 Mg Tablet, 4 MG GTB Q6H PRN for NAUSEA AND OR VOMITING, TAB 10/02/18 Pantoprazole Sodium (Protonix) 40 Mg Granpkt.dr, 40 MG GTB DAILY MIX CONTENTS WITH APPLE SAUCE THEN FLUSH WITH 30ML APPLE JUICE 10/02/18 Levothyroxine Sodium* (Levoxyl*) 50 Mcg Tablet, 50 MCG GTB BEFORE BREAKFAST, #30 TAB 10/02/18 Polyvinyl Alcohol (Tears Again) 15 Ml Drops, 1 DRP BOTH EYES TID, BOTTLE 10/02/18 Metoprolol Tartrate* (Lopressor*) 25 Mg Tab, 25 MG GTB Q8, #60 TAB HOLD FOR SBP <110 OR HR<60 10/02/18 Atorvastatin* (Atorvastatin*) 40 Mg Tablet, 40 MG GTB QHS, #30 TAB 10/02/18 Aspirin* (Aspirin*) 325 Mg Tablet, 325 MG GTB DAILY, TAB 10/02/18 Lactobacillus Acidophilus/Pect (Acidophilus-Pectin Capsule) 1 Each Capsule, 1 EACH GTB DAILY, CAP 10/02/18 Acetaminophen* (Acetaminophen*) 650 Mg Tablet, 650 MG GTB Q4 PRN for MILD PAIN LEVEL 1-3, #30 TAB FOR FEVER AND TRACH CHANGE 10/02/18 Acetaminophen* (Acetaminophen*) 500 MG Extra Strength Tablet, 1000 MG GTB Q4 PRN for MODERATE PAIN LEVEL 4-6, TAB 10/02/18 Zinc Sulfate* (Zinc Sulfate*) 220 Mg Cap, 220 MG GTB DAILY, CAP 10/02/18 Ascorbic Acid* (Vitamin C*) 500 Mg Capsule.sa, 500 MG GTB DAILY, CAP 10/02/18 Multivitamin with Minerals (Daily Vitamin Formula-Minerals) 1 Each Tablet, 1 EACH GTB DAILY, TAB 10/02/18 Amino Acids/Protein Hydrolys (Pro-Stat Awc Liquid) 30 Ml Liquid, 30 ML GTB DAILY SUGAR FREE 10/02/18 Na Phos,M-B/Na Phos,Di-Ba (ENEMA [id number]) 133 Ml Enema, 133 ML RC EVERY 2 DAYS PRN for CONSTIPATION, ENEMA 10/02/18 Bisacodyl (Dulcolax) 10 Mg Supp.rect, 10 MG RC DAILY PRN for CONSTIPATION, SUPP. RECT 10/02/18 Docusate Sodium* (Colace*) 100 Mg Capsule, 100 MG GTB BID, #60 CAP 10/02/18 Medications Current Medications IV Flush (NS 3 ml) 3 ml PER PROTOCOL IV ; Start 10/02/18 at 13:30 Hydromorphone HCl (Dilaudid) 0.5 mg Q4H PRN IV .SEVERE PAIN 7-10 Last administered on 10/05/18 12:55; Admin Dose 0.5 MG; Start 10/02/18 at 13:30 Levothyroxine Sodium (Synthroid) 50 mcg BEFORE BREAKFAST GTB Last administered on 10/06/18 06:00; Admin Dose 50 MCG; Start 10/03/18 at 07:00 Tramadol HCl (Ultram) 50 mg BID PEG Last administered on 10/06/18 08:09; Admin Dose 50 MG; Start 10/03/18 at 21:00 Potassium Chloride (Potassium Chloride Pwd/Soln) 40 meq DAILY GTB Last administered on 10/06/18 08:09; Admin Dose 40 MEQ; Start 10/04/18 at 18:00 Vancomycin HCl (Vancomycin Oral Syringe) 125 mg Q6 GTB Last administered on 10/06/18 05:52; Admin Dose 125 MG; Start 10/05/18 at 00:00 Famotidine (Pepcid) 20 mg HS GTB Last administered on 10/05/18 20:25; Admin Dose 20 MG; Start 10/04/18 at 21:00 Heparin Sodium (Porcine) (Heparin (1000 Units/ml)) 5,400 unit PER PROTOCOL PRN IV aPTT<47; Start 10/05/18 at 07:30 Heparin Sodium (Porcine) (Heparin (1000 Units/ml)) 2,700 unit PER PROTOCOL PRN IV aPTT<47-57 Last administered on 10/05/18at 22:12; Admin Dose 2,700 UNIT; Start 10/05/18 at 07:30 Heparin Sodium (Porcine) 250 ml @ 0 mls/hr PER PROTOCOL IV Last administered on 10/06/18at 06:53; Admin Dose 12 MLS/HR; Start 10/05/18 at 07:30 Gentamicin Sulfate (Gentamicin Iv Per Pharmacy) GENTAMICIN PER PHARMACY NOTE XX ; Start 10/05/18 at 16:00 Gentamicin Sulfate 50 ml @ 100 mls/hr Q24H IVPB Last administered on 10/05/18at 17:44; Admin Dose 100 MLS/HR; Start 10/05/18 at 18:30 Metronidazole 100 ml @ 100 mls/hr Q6 IVPB Last administered on 10/06/18at 05:52; Admin Dose 100 MLS/HR; Start 10/05/18 at 18:30 Amiodarone HCl 900 mg/Dextrose 500 ml @ 0 mls/hr Q0M IV Last administered on 10/05/18at 21:32; Admin Dose 33.3 MLS/HR; Start 10/05/18 at 22:00 Allergies: Coded Allergies: No Known Allergy (Unverified , 10/02/18) Past Surgical History Past Surgical Hx: no surgical history Social History Alcohol Use: none Smoking Status: Unknown if ever smoked Drug Use: none Exam/Review of Systems Vital Signs Vitals Vital Signs Date Temp Pulse Resp B/P (MAP) Pulse Ox O2 O2 Flow FiO2 Time Delivery Rate 10/06/18 78 16 100 30 07:50 10/06/18 119/66 06:30 (83) 10/06/18 Mechanical 06:00 Ventilator 10/06/18 98.1 04:00 Intake and Output 10/05/18 10/05/18 10/06/18 1515:00 23:00 07:00 IntakeIntake Total 326.3 ml 716.9 ml OutputOutput Total 360 ml 210 ml 240 ml BalanceBalance -360 ml 116.3 ml 476.9 ml Exam Constitutional: No alert ENMT: other (s/p trach) Neck: No jvd (unable to examine ) Respiratory: diminished breath sounds; No clear to auscultation Cardiovascular: regular rate and rhythm, edema (1+); No systolic murmur Gastrointestinal: soft; No distended Musculoskeletal: No nl extremities to inspection Neurological: No nl mental status, No nl speech Skin: No rash or lesions Labs Result Diagram: 10/06/1845410/06/18454 Results 24hrs Laboratory Tests Test 10/05/18 15:27 10/05/18 20:51 10/06/18 04:55 10/06/18 08:15 Activated 148.2 *H 45.5 H > 180.0 *H 78.4 *H Partial Thromboplast Time Vancomycin Level 14.2 Trough White Blood Count 9.4 Red Blood Count 2.86 L Hemoglobin 7.4 L Hematocrit 24.3 L Mean Corpuscular 85.0 Volume Mean Corpuscular 25.9 L Hemoglobin Mean Corpuscular 30.5 L Hemoglobin Concent Red Cell 16.3 H Distribution Width Platelet Count 371 Mean Platelet Volume 10.2 Immature 2.500 H Granulocytes % Neutrophils % 52.9 Lymphocytes % 30.5 Monocytes % 10.7 Eosinophils % 2.9 Basophils % 0.5 Nucleated Red Blood 0.0 Cells % Immature 0.230 H Granulocytes # Neutrophils # 5.0 Lymphocytes # 2.9 Monocytes # 1.0 H Eosinophils # 0.3 Basophils # 0.1 Nucleated Red Blood 0.0 Cells # Prothrombin Time 17.5 H 16.9 H Prothrombin Time 1.4 1.3 Ratio INR International 1.42 1.36 Normalized Ratio Sodium Level 148 H Potassium Level 4.2 Chloride Level 121 H Carbon Dioxide Level 18 L Anion Gap 9 Blood Urea Nitrogen 16 Creatinine 1.08 Est Glomerular Filtrat Rate mL/min Glucose Level 112 Calcium Level 7.4 L Medications Medications Current Medications IV Flush (NS 3 ml) 3 ml PER PROTOCOL IV ; Start 10/02/18 at 13:30 Hydromorphone HCl (Dilaudid) 0.5 mg Q4H PRN IV .SEVERE PAIN 7-10 Last administered on 10/05/18 12:55; Admin Dose 0.5 MG; Start 10/02/18 at 13:30 Levothyroxine Sodium (Synthroid) 50 mcg BEFORE BREAKFAST GTB Last administered on 10/06/18 06:00; Admin Dose 50 MCG; Start 10/03/18 at 07:00 Tramadol HCl (Ultram) 50 mg BID PEG Last administered on 10/06/18 08:09; Admin Dose 50 MG; Start 10/03/18 at 21:00 Potassium Chloride (Potassium Chloride Pwd/Soln) 40 meq DAILY GTB Last administered on 10/06/18 08:09; Admin Dose 40 MEQ; Start 10/04/18 at 18:00 Vancomycin HCl (Vancomycin Oral Syringe) 125 mg Q6 GTB Last administered on 10/06/18 05:52; Admin Dose 125 MG; Start 10/05/18 at 00:00 Famotidine (Pepcid) 20 mg HS GTB Last administered on 10/05/18 20:25; Admin Dose 20 MG; Start 10/04/18 at 21:00 Heparin Sodium (Porcine) (Heparin (1000 Units/ml)) 5,400 unit PER PROTOCOL PRN IV aPTT<47; Start 10/05/18 at 07:30 Heparin Sodium (Porcine) (Heparin (1000 Units/ml)) 2,700 unit PER PROTOCOL PRN IV aPTT<47-57 Last administered on 10/05/18 22:12; Admin Dose 2,700 UNIT; Start 10/05/18 at 07:30 Heparin Sodium (Porcine) 250 ml @ 0 mls/hr PER PROTOCOL IV Last administered on 10/06/18 06:53; Admin Dose 12 MLS/HR; Start 10/05/18 at 07:30 Gentamicin Sulfate (Gentamicin Iv Per Pharmacy) GENTAMICIN PER PHARMACY NOTE XX ; Start 10/05/18 at 16:00 Gentamicin Sulfate 50 ml @ 100 mls/hr Q24H IVPB Last administered on 10/05/18 17:44; Admin Dose 100 MLS/HR; Start 10/05/18 at 18:30 Metronidazole 100 ml @ 100 mls/hr Q6 IVPB Last administered on 10/06/18 05:52; Admin Dose 100 MLS/HR; Start 10/05/18 at 18:30 Amiodarone HCl 900 mg/Dextrose 500 ml @ 0 mls/hr Q0M IV Last administered on 10/05/18 21:32; Admin Dose 33.3 MLS/HR; Start 10/05/18 at 22:00 FERD BERGER Oct 06, 2018 09:20
--- NOTE | 2018-10-06 10:05 | PN ---
Date/Time of Note Date/Time of Note DATE: 10/06/18 TIME: 09:59 Assessment/Plan VTE Prophylaxis Risk score (from Ns)>0 risk: 11 SCD applied (from Ns): Yes Pharmacological prophylaxis: heparin Lines/Catheters IV Catheter Type (from Nrs): Peripheral IV Urinary Cath still in place: Yes Reason Cath still needed: other (indicate) (monitor I&O) Assessment/Plan Hospital Course Assessment and plan 1. Sepsis. Urine culture did show pseudomonas aeruginosa. ID consult to follow. 2. Recent diarrhea. Stool C. difficile (+). ABX per ID 3. suspect malnutrition. Continue tube feedings. 4. A. fib with RVR. s/p diltiazem drip and amiodarone. Lead Generator consulted. f/u recommendations. continue telemetry monitoring 5. Anemia. Likely of chronic disease. Monitor H&H. Transfuse blood products as needed. 6. History of chronic respiratory failure on ventilator. Continue pulmonary hygiene. Consideration of [facility] transfer once more medically stable 7. History of brain cancer status post surgery. Continue supportive care for now. Patient does have reported chronic encephalopathy. Suspect baseline at present. Head CT pending. anticoagulation on hold to assess risk for bleeding 8. Thrombus within the right common femoral and proximal superficial femoral veins. anticoagulation on hold for now. consider restart pending CT head imagi ng Disposition and plan. Plan for CT head imaging. Lead Generator consult following for afib. Discussed POC with Dr. Salvador Critical CARE time: Greater than 40 minutes Result Diagram: 10/06/18 0455 10/06/18 0455 Results 24hrs Laboratory Tests Test 10/05/18 15:27 10/05/18 20:51 10/06/18 04:55 10/06/18 08:15 Activated 148.2 *H 45.5 H > 180.0 *H 78.4 *H Partial Thromboplast Time Vancomycin Level 14.2 Trough White Blood Count 9.4 Red Blood Count 2.86 L Hemoglobin 7.4 L Hematocrit 24.3 L Mean Corpuscular 85.0 Volume Mean Corpuscular 25.9 L Hemoglobin Mean Corpuscular 30.5 L Hemoglobin Concent Red Cell 16.3 H Distribution Width Platelet Count 371 Mean Platelet Volume 10.2 Immature 2.500 H Granulocytes % Neutrophils % 52.9 Lymphocytes % 30.5 Monocytes % 10.7 Eosinophils % 2.9 Basophils % 0.5 Nucleated Red Blood 0.0 Cells % Immature 0.230 H Granulocytes # Neutrophils # 5.0 Lymphocytes # 2.9 Monocytes # 1.0 H Eosinophils # 0.3 Basophils # 0.1 Nucleated Red Blood 0.0 Cells # Prothrombin Time 17.5 H 16.9 H Prothrombin Time 1.4 1.3 Ratio INR International 1.42 1.36 Normalized Ratio Sodium Level 148 H Potassium Level 4.2 Chloride Level 121 H Carbon Dioxide Level 18 L Anion Gap 9 Blood Urea Nitrogen 16 Creatinine 1.08 Est Glomerular Filtrat Rate mL/min Glucose Level 112 Calcium Level 7.4 L Subjective 24 Hr Interval Summary Free Text/Dictation no purposeful response. no obvious s/s of distress Exam/Review of Systems Exam Vitals Vital Signs Date Temp Pulse Resp B/P (MAP) Pulse Ox O2 O2 Flow FiO2 Time Delivery Rate 10/06/18 75 17 100 30 09:31 10/06/18 120/67 09:30 (84) 10/06/18 Mechanical 09:00 Ventilator 10/06/18 98.8 08:00 Intake and Output 10/05/18 10/05/18 10/06/18 1515:00 23:00 07:00 IntakeIntake Total 326.3 ml 716.9 ml OutputOutput Total 360 ml 210 ml 240 ml BalanceBalance -360 ml 116.3 ml 476.9 ml Exam Constitutional: other (awake, but no purposeful response ) Head: normocephalic Neck: other (tracheostomy in place ) Respiratory: other (no obvious wheezing/rhonchi) Cardiovascular: other (regular rate ) Gastrointestinal: other (peg tube i place ) Musculoskeletal: other (contractures ble ) Neurological: 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, No nl mental status, No nl speech Results Results 24hrs Laboratory Tests Test 10/05/18 15:27 10/05/18 20:51 10/06/18 04:55 10/06/18 08:15 Activated 148.2 *H 45.5 H > 180.0 *H 78.4 *H Partial Thromboplast Time Vancomycin Level 14.2 Trough White Blood Count 9.4 Red Blood Count 2.86 L Hemoglobin 7.4 L Hematocrit 24.3 L Mean Corpuscular 85.0 Volume Mean Corpuscular 25.9 L Hemoglobin Mean Corpuscular 30.5 L Hemoglobin Concent Red Cell 16.3 H Distribution Width Platelet Count 371 Mean Platelet Volume 10.2 Immature 2.500 H Granulocytes % Neutrophils % 52.9 Lymphocytes % 30.5 Monocytes % 10.7 Eosinophils % 2.9 Basophils % 0.5 Nucleated Red Blood 0.0 Cells % Immature 0.230 H Granulocytes # Neutrophils # 5.0 Lymphocytes # 2.9 Monocytes # 1.0 H Eosinophils # 0.3 Basophils # 0.1 Nucleated Red Blood 0.0 Cells # Prothrombin Time 17.5 H 16.9 H Prothrombin Time 1.4 1.3 Ratio INR International 1.42 1.36 Normalized Ratio Sodium Level 148 H Potassium Level 4.2 Chloride Level 121 H Carbon Dioxide Level 18 L Anion Gap 9 Blood Urea Nitrogen 16 Creatinine 1.08 Est Glomerular Filtrat Rate mL/min Glucose Level 112 Calcium Level 7.4 L Medications Medication Current Medications IV Flush (NS 3 ml) 3 ml PER PROTOCOL IV ; Start 10/02/18 at 13:30 Hydromorphone HCl (Dilaudid) 0.5 mg Q4H PRN IV .SEVERE PAIN 7-10 Last administered on 10/05/18 12:55; Admin Dose 0.5 MG; Start 10/02/18 at 13:30 Levothyroxine Sodium (Synthroid) 50 mcg BEFORE BREAKFAST GTB Last administered on 10/06/18 06:00; Admin Dose 50 MCG; Start 10/03/18 at 07:00 Tramadol HCl (Ultram) 50 mg BID PEG Last administered on 10/06/18 08:09; Admin Dose 50 MG; Start 10/03/18 at 21:00 Potassium Chloride (Potassium Chloride Pwd/Soln) 40 meq DAILY GTB Last administered on 10/06/18 08:09; Admin Dose 40 MEQ; Start 10/04/18 at 18:00 Vancomycin HCl (Vancomycin Oral Syringe) 125 mg Q6 GTB Last administered on 10/06/18 05:52; Admin Dose 125 MG; Start 10/05/18 at 00:00 Famotidine (Pepcid) 20 mg HS GTB Last administered on 10/05/18 20:25; Admin Dose 20 MG; Start 10/04/18 at 21:00 Heparin Sodium (Porcine) (Heparin (1000 Units/ml)) 5,400 unit PER PROTOCOL PRN IV aPTT<47; Start 10/05/18 at 07:30 Heparin Sodium (Porcine) (Heparin (1000 Units/ml)) 2,700 unit PER PROTOCOL PRN IV aPTT<47-57 Last administered on 10/05/18at 22:12; Admin Dose 2,700 UNIT; Start 10/05/18 at 07:30 Heparin Sodium (Porcine) 250 ml @ 0 mls/hr PER PROTOCOL IV Last administered on 10/06/18at 06:53; Admin Dose 12 MLS/HR; Start 10/05/18 at 07:30 Gentamicin Sulfate (Gentamicin Iv Per Pharmacy) GENTAMICIN PER PHARMACY NOTE XX ; Start 10/05/18 at 16:00 Gentamicin Sulfate 50 ml @ 100 mls/hr Q24H IVPB Last administered on 10/05/18at 17:44; Admin Dose 100 MLS/HR; Start 10/05/18 at 18:30 Metronidazole 100 ml @ 100 mls/hr Q6 IVPB Last administered on 10/06/18at 05:52; Admin Dose 100 MLS/HR; Start 10/05/18 at 18:30 Amiodarone HCl 900 mg/Dextrose 500 ml @ 0 mls/hr Q0M IV Last administered on 10/05/18at 21:32; Admin Dose 33.3 MLS/HR; Start 10/05/18 at 22:00 Metoprolol Succinate (Toprol Xl) 25 mg DAILY PO ; Start 10/06/18 at 09:30 STARLA ALLEN NP Oct 06, 2018 10:05
[2018-10-06] MEDS: METOPROLOL (XL) 25 MG TAB PO SCH (10:08)
--- NOTE | 2018-10-06 11:06 | CONS ---
Consult Date/Type/Reason Admit Date/Time Oct 02, 2018 at 12:38 Initial Consult Date 10/06/18 Type of Consult Pulmonary Requesting Provider: VIRGIE WOLF Date/Time of Note DATE: 10/06/18 TIME: 11:05 Subjective A. fib with RVR overnight placed on IV amiodarone and continues anticoagulation with heparin. Now in sinus rhythm. Neurologically unchanged. Currently hemodynamically unstable. Objective Vital Signs Date Temp Pulse Resp B/P (MAP) Pulse Ox O2 O2 Flow FiO2 Time Delivery Rate 10/06/18 77 15 100 30 11:03 10/06/18 120/67 09:30 (84) 10/06/18 Mechanical 09:00 Ventilator 10/06/18 98.8 08:00 Intake and Output 10/05/18 10/05/18 10/06/18 1515:00 23:00 07:00 IntakeIntake Total 326.3 ml 756.9 ml OutputOutput Total 360 ml 210 ml 450 ml BalanceBalance -360 ml 116.3 ml 306.9 ml Exam PHYSICAL EXAMINATION: GENERAL: Chronically ill appearing gentleman, appears comfortable at rest, in no acute distress. VITAL SIGNS: NECK: Trach site is clean and intact. CARDIAC: S1, S2. No added sounds or murmurs. CHEST: Diminished air entry bilaterally. ABDOMEN: Soft, nontender. No guarding or rebound. EXTREMITIES: No cyanosis, clubbing or edema. NEUROLOGICAL: Unable to assess. Vent Setting Ventilator Support Mode: AC Fraction of Inspired Oxygen pe: 30 Positive End Expiratory Pressu: 5.0 Results/Medications Result Diagram: 10/06/18 0455 10/06/18 0455 Results 24 hrs Laboratory Tests Test 10/05/18 15:27 10/05/18 20:51 10/06/18 04:55 10/06/18 08:15 Activated 148.2 *H 45.5 H > 180.0 *H 78.4 *H Partial Thromboplast Time Vancomycin Level 14.2 Trough White Blood Count 9.4 Red Blood Count 2.86 L Hemoglobin 7.4 L Hematocrit 24.3 L Mean Corpuscular 85.0 Volume Mean Corpuscular 25.9 L Hemoglobin Mean Corpuscular 30.5 L Hemoglobin Concent Red Cell 16.3 H Distribution Width Platelet Count 371 Mean Platelet Volume 10.2 Immature 2.500 H Granulocytes % Neutrophils % 52.9 Lymphocytes % 30.5 Monocytes % 10.7 Eosinophils % 2.9 Basophils % 0.5 Nucleated Red Blood 0.0 Cells % Immature 0.230 H Granulocytes # Neutrophils # 5.0 Lymphocytes # 2.9 Monocytes # 1.0 H Eosinophils # 0.3 Basophils # 0.1 Nucleated Red Blood 0.0 Cells # Prothrombin Time 17.5 H 16.9 H Prothrombin Time 1.4 1.3 Ratio INR International 1.42 1.36 Normalized Ratio Sodium Level 148 H Potassium Level 4.2 Chloride Level 121 H Carbon Dioxide Level 18 L Anion Gap 9 Blood Urea Nitrogen 16 Creatinine 1.08 Est Glomerular Filtrat Rate mL/min Glucose Level 112 Calcium Level 7.4 L Test 10/06/18 10:28 Prothrombin Time 16.7 H Prothrombin Time 1.3 Ratio INR International 1.34 Normalized Ratio Activated 47.3 H Partial Thromboplast Time Medications Current Medications IV Flush (NS 3 ml) 3 ml PER PROTOCOL IV ; Start 10/02/18 at 13:30 Hydromorphone HCl (Dilaudid) 0.5 mg Q4H PRN IV .SEVERE PAIN 7-10 Last administered on 10/05/18 12:55; Admin Dose 0.5 MG; Start 10/02/18 at 13:30 Levothyroxine Sodium (Synthroid) 50 mcg BEFORE BREAKFAST GTB Last administered on 10/06/18 06:00; Admin Dose 50 MCG; Start 10/03/18 at 07:00 Tramadol HCl (Ultram) 50 mg BID PEG Last administered on 10/06/18 08:09; Admin Dose 50 MG; Start 10/03/18 at 21:00 Potassium Chloride (Potassium Chloride Pwd/Soln) 40 meq DAILY GTB Last administered on 10/06/18 08:09; Admin Dose 40 MEQ; Start 10/04/18 at 18:00 Vancomycin HCl (Vancomycin Oral Syringe) 125 mg Q6 GTB Last administered on 10/06/18 05:52; Admin Dose 125 MG; Start 10/05/18 at 00:00 Famotidine (Pepcid) 20 mg HS GTB Last administered on 10/05/18 20:25; Admin Dose 20 MG; Start 10/04/18 at 21:00 Heparin Sodium (Porcine) (Heparin (1000 Units/ml)) 5,400 unit PER PROTOCOL PRN IV aPTT<47; Start 10/05/18 at 07:30 Heparin Sodium (Porcine) (Heparin (1000 Units/ml)) 2,700 unit PER PROTOCOL PRN IV aPTT<47-57 Last administered on 10/05/18at 22:12; Admin Dose 2,700 UNIT; Start 10/05/18 at 07:30 Heparin Sodium (Porcine) 250 ml @ 0 mls/hr PER PROTOCOL IV Last administered on 10/06/18at 06:53; Admin Dose 12 MLS/HR; Start 10/05/18 at 07:30 Gentamicin Sulfate (Gentamicin Iv Per Pharmacy) GENTAMICIN PER PHARMACY NOTE XX ; Start 10/05/18 at 16:00 Gentamicin Sulfate 50 ml @ 100 mls/hr Q24H IVPB Last administered on 10/05/18at 17:44; Admin Dose 100 MLS/HR; Start 10/05/18 at 18:30 Metronidazole 100 ml @ 100 mls/hr Q6 IVPB Last administered on 10/06/18at 05:52; Admin Dose 100 MLS/HR; Start 10/05/18 at 18:30 Amiodarone HCl 900 mg/Dextrose 500 ml @ 0 mls/hr Q0M IV Last administered on 10/05/18at 21:32; Admin Dose 33.3 MLS/HR; Start 10/05/18 at 22:00 Metoprolol Succinate (Toprol Xl) 25 mg DAILY PO Last administered on 10/06/18at 10:08; Admin Dose 25 MG; Start 10/06/18 at 09:30 Assessment/Plan Hospital Course (Demo Recall) Impression 1. Pseudomonal urinary tract infection. 2. History of brain carcinoma. 3. Ventilator-dependent respiratory failure. 4. Common femoral, superficial vein thrombosis. 5. Continue rate control with amiodarone consider transition to p.o. PLAN : 1. Continue vent support. 2. Antibiotics. 3. Tube feedings. 4. Anticoagulation. 5. DVT and GI prophylaxis. 6. CT brain to evaluate mass to exclude hemorrhagic conversion and for prognostic purposes. Overall prognosis guarded critical care time 40 minutes. Consider comfort measures or at least change to CODE STATUS. ELIOT GALEAS MD, [facility] Oct 06, 2018 11:06
--- NOTE | 2018-10-06 14:43 | CONS ---
Assessment/Plan Assessment/Plan Hospital Course (Demo Recall) No acute events overnight patient is lying comfortably in bed no fevers overnight WBC 9.4 platelets 371 no shift BUN 16 creatinine 1.08 Indwelling: Trach back [place] Antimicrobials: Gentamicin, oral vancomycin Physical examination: Well-developed chronically ill-appearing elderly man who is in no distress. Head atraumatic normocephalic neck is supple tracheostomy present chest rise symmetrical breath sounds diminished bases. Heart: S1-S2. Abdomen soft bowel sounds present. Assessment: 1. Sepsis 2. C. difficile colitis 3. Urinary tract infection 4. Paroxysmal atrial fibrillation on admission 5. Cardiomyopathy 6. Chronic encephalopathy 7. Right lower extremity DVT Plan: Patient is stable, continue present care and antibiotics, follow recommendations of specialists Consultation Date/Type/Reason Admit Date/Time Oct 02, 2018 at 12:38 Initial Consult Date 10/06/18 Type of Consult id Requesting Provider: VIRGIE WOLF Date/Time of Note DATE: 10/06/18 TIME: 14:43 Exam/Review of Systems Exam Vitals Vital Signs Date Temp Pulse Resp B/P (MAP) Pulse Ox O2 O2 Flow FiO2 Time Delivery Rate 10/06/18 77 20 100 30 13:17 10/06/18 120/67 09:30 (84) 10/06/18 Mechanical 09:00 Ventilator 10/06/18 98.8 08:00 Intake and Output 10/05/18 10/05/18 10/06/18 1515:00 23:00 07:00 IntakeIntake Total 326.3 ml 756.9 ml OutputOutput Total 360 ml 210 ml 450 ml BalanceBalance -360 ml 116.3 ml 306.9 ml Results Result Diagram: 10/06/18 0455 10/06/18 0455 Results 24hrs Laboratory Tests Test 10/05/18 15:27 10/05/18 20:51 10/06/18 04:55 10/06/18 08:15 Activated 148.2 *H 45.5 H > 180.0 *H 78.4 *H Partial Thromboplast Time Vancomycin Level 14.2 Trough White Blood Count 9.4 Red Blood Count 2.86 L Hemoglobin 7.4 L Hematocrit 24.3 L Mean Corpuscular 85.0 Volume Mean Corpuscular 25.9 L Hemoglobin Mean Corpuscular 30.5 L Hemoglobin Concent Red Cell 16.3 H Distribution Width Platelet Count 371 Mean Platelet Volume 10.2 Immature 2.500 H Granulocytes % Neutrophils % 52.9 Lymphocytes % 30.5 Monocytes % 10.7 Eosinophils % 2.9 Basophils % 0.5 Nucleated Red Blood 0.0 Cells % Immature 0.230 H Granulocytes # Neutrophils # 5.0 Lymphocytes # 2.9 Monocytes # 1.0 H Eosinophils # 0.3 Basophils # 0.1 Nucleated Red Blood 0.0 Cells # Prothrombin Time 17.5 H 16.9 H Prothrombin Time 1.4 1.3 Ratio INR International 1.42 1.36 Normalized Ratio Sodium Level 148 H Potassium Level 4.2 Chloride Level 121 H Carbon Dioxide Level 18 L Anion Gap 9 Blood Urea Nitrogen 16 Creatinine 1.08 Est Glomerular Filtrat Rate mL/min Glucose Level 112 Calcium Level 7.4 L Test 10/06/18 10:28 Prothrombin Time 16.7 H Prothrombin Time 1.3 Ratio INR International 1.34 Normalized Ratio Activated 47.3 H Partial Thromboplast Time Medications Medication Current Medications IV Flush (NS 3 ml) 3 ml PER PROTOCOL IV ; Start 10/02/18 at 13:30 Hydromorphone HCl (Dilaudid) 0.5 mg Q4H PRN IV .SEVERE PAIN 7-10 Last administered on 10/05/18 12:55; Admin Dose 0.5 MG; Start 10/02/18 at 13:30 Levothyroxine Sodium (Synthroid) 50 mcg BEFORE BREAKFAST GTB Last administered on 10/06/18 06:00; Admin Dose 50 MCG; Start 10/03/18 at 07:00 Tramadol HCl (Ultram) 50 mg BID PEG Last administered on 10/06/18 08:09; Admin Dose 50 MG; Start 10/03/18 at 21:00 Potassium Chloride (Potassium Chloride Pwd/Soln) 40 meq DAILY GTB Last administered on 10/06/18 08:09; Admin Dose 40 MEQ; Start 10/04/18 at 18:00 Vancomycin HCl (Vancomycin Oral Syringe) 125 mg Q6 GTB Last administered on 10/06/18 13:32; Admin Dose 125 MG; Start 10/05/18 at 00:00 Famotidine (Pepcid) 20 mg HS GTB Last administered on 10/05/18 20:25; Admin Dose 20 MG; Start 10/04/18 at 21:00 Heparin Sodium (Porcine) (Heparin (1000 Units/ml)) 5,400 unit PER PROTOCOL PRN IV aPTT<47; Start 10/05/18 at 07:30 Heparin Sodium (Porcine) (Heparin (1000 Units/ml)) 2,700 unit PER PROTOCOL PRN IV aPTT<47-57 Last administered on 10/05/18at 22:12; Admin Dose 2,700 UNIT; Start 10/05/18 at 07:30 Heparin Sodium (Porcine) 250 ml @ 0 mls/hr PER PROTOCOL IV Last administered on 10/06/18at 06:53; Admin Dose 12 MLS/HR; Start 10/05/18 at 07:30 Gentamicin Sulfate (Gentamicin Iv Per Pharmacy) GENTAMICIN PER PHARMACY NOTE XX ; Start 10/05/18 at 16:00 Gentamicin Sulfate 50 ml @ 100 mls/hr Q24H IVPB Last administered on 10/05/18at 17:44; Admin Dose 100 MLS/HR; Start 10/05/18 at 18:30 Amiodarone HCl 900 mg/Dextrose 500 ml @ 0 mls/hr Q0M IV Last administered on 10/05/18at 21:32; Admin Dose 33.3 MLS/HR; Start 10/05/18 at 22:00 Metoprolol Succinate (Toprol Xl) 25 mg DAILY PO Last administered on 10/06/18at 10:08; Admin Dose 25 MG; Start 10/06/18 at 09:30 Miscellaneous Information (*Rx Drug Level Order Reminder*) GENTAMICIN TR AT 1730 PRIOR... 1730 ONCE XX ; Start 10/07/18 at 17:30; Stop 10/07/18 at 17:31 Miscellaneous Information (*Rx Drug Level Order Reminder*) GENTAMICIN PEAK 10/07 AT 1... 1930 ONCE XX ; Start 10/07/18 at 19:30; Stop 10/07/18 at 19:31 FITO ALEXANDER NP Oct 06, 2018 14:43
[2018-10-06] MEDS: GENTAMICIN 100 MG/50 ML NS IVPB SCH (18:26)
[2018-10-06] MEDS: FAMOTIDINE 20 MG TAB GTB SCH (22:24)
[2018-10-07] VITALS (18 sets, daily range): BP systolic 120–131; BP diastolic 52–69; PULSE 77–91; RESP 14–22
[2018-10-07] MEDS: VANCOMYCIN HCL 250 MG/5ML POSYG GTB SCH ×4 (00:38→17:53)
[2018-10-07] MEDS: LEVOTHYROXINE 50 MCG TAB GTB SCH (06:33)
[2018-10-07] MEDS: METOPROLOL (XL) 25 MG TAB PO SCH (08:32)
[2018-10-07] MEDS: BALSAM PERU/CASTOR OIL 60 GM TUBE TOP SCH (08:32)
[2018-10-07] MEDS: POTASSIUM CHLORIDE 20 MEQ POWDER FOR ORAL SOLN GTB SCH (08:32)
[2018-10-07] MEDS: traMADol 50 MG TAB PEG SCH ×2 (08:33→22:23)
--- NOTE | 2018-10-07 09:45 | CONS ---
Assessment/Plan Assessment/Plan Assessment/Plan (Daily) Patient with malignancy without type of tumor noted in patient's chart Incomplete database Encephalopathy Respiratory failure on ventilator Urosepsis Poor performance scale Malnutrition Family conference 10/07/2018 at 10 AM. Consultation Date/Type/Reason Admit Date/Time Oct 02, 2018 at 12:38 Date/Time of Note DATE: 10/07/18 TIME: 09:42 Hx of Present Illness This is an unfortunate 82-year-old gentleman who has a history of brain cancer unknown etiology we have an incomplete database. Camjeo is chronically encephalo pathic on vent, failure to thrive PEG tube has been placed as was admitted with urosepsis. Patient CT scan most important impression shows #1 status post enteral left frontal craniotomy. 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 It measures 3.0 x 1.3 cm with decreased mass-effect upon the danny as well as decrease appearance there is superior component. There is encephalomalacia and gliosis none noted within the left basal ganglia midbrain as well as left lateral aspect of the danny MRI of the brain may be performed as clinically warranted. Patient's family are in route patient is unable to make any decisions on his own. He is encephalopathic and is a full code. Unable to obtain Past Medical History Home Meds Reported Medications Tramadol Hcl* (Ultram*) 50 Mg Tablet, 50 MG GTB BID PRN for PAIN MANAGEMENT, TAB 10/02/18 Magnesium Hydroxide* (Milk Of Magnesia*) 400 Mg/5 Ml Oral.susp, 30 ML GTB DAILY, ML 10/02/18 Magaldrate/Simethicone* (Mag-Al Plus Suspension*) 30 Ml Oral.susp, 30 ML GTB Q4 PRN for GASTROINTESTINAL UPSET, ML 10/02/18 Ondansetron Hcl* (Zofran*) 4 Mg Tablet, 4 MG GTB Q6H PRN for NAUSEA AND OR VOMITING, TAB 10/02/18 Pantoprazole Sodium (Protonix) 40 Mg Granpkt.dr, 40 MG GTB DAILY MIX CONTENTS WITH APPLE SAUCE THEN FLUSH WITH 30ML APPLE JUICE 10/02/18 Levothyroxine Sodium* (Levoxyl*) 50 Mcg Tablet, 50 MCG GTB BEFORE BREAKFAST, #30 TAB 10/02/18 Polyvinyl Alcohol (Tears Again) 15 Ml Drops, 1 DRP BOTH EYES TID, BOTTLE 10/02/18 Metoprolol Tartrate* (Lopressor*) 25 Mg Tab, 25 MG GTB Q8, #60 TAB HOLD FOR SBP <110 OR HR<60 10/02/18 Atorvastatin* (Atorvastatin*) 40 Mg Tablet, 40 MG GTB QHS, #30 TAB 10/02/18 Aspirin* (Aspirin*) 325 Mg Tablet, 325 MG GTB DAILY, TAB 10/02/18 Lactobacillus Acidophilus/Pect (Acidophilus-Pectin Capsule) 1 Each Capsule, 1 EACH GTB DAILY, CAP 10/02/18 Acetaminophen* (Acetaminophen*) 650 Mg Tablet, 650 MG GTB Q4 PRN for MILD PAIN LEVEL 1-3, #30 TAB FOR FEVER AND TRACH CHANGE 10/02/18 Acetaminophen* (Acetaminophen*) 500 MG Extra Strength Tablet, 1000 MG GTB Q4 PRN for MODERATE PAIN LEVEL 4-6, TAB 10/02/18 Zinc Sulfate* (Zinc Sulfate*) 220 Mg Cap, 220 MG GTB DAILY, CAP 10/02/18 Ascorbic Acid* (Vitamin C*) 500 Mg Capsule.sa, 500 MG GTB DAILY, CAP 10/02/18 Multivitamin with Minerals (Daily Vitamin Formula-Minerals) 1 Each Tablet, 1 EACH GTB DAILY, TAB 10/02/18 Amino Acids/Protein Hydrolys (Pro-Stat Awc Liquid) 30 Ml Liquid, 30 ML GTB DAILY SUGAR FREE 10/02/18 Na Phos,M-B/Na Phos,Di-Ba (ENEMA CPTMK-VH-DCQ) 133 Ml Enema, 133 ML RC EVERY 2 DAYS PRN for CONSTIPATION, ENEMA 10/02/18 Bisacodyl (Dulcolax) 10 Mg Supp.rect, 10 MG RC DAILY PRN for CONSTIPATION, SUPP.RECT 10/02/18 Docusate Sodium* (Colace*) 100 Mg Capsule, 100 MG GTB BID, #60 CAP 10/02/18 Medications Current Medications IV Flush (NS 3 ml) 3 ml PER PROTOCOL IV ; Start 10/02/18 at 13:30 Hydromorphone HCl (Dilaudid) 0.5 mg Q4H PRN IV .SEVERE PAIN 7-10 Last administered on 10/05/18at 12:55; Admin Dose 0.5 MG; Start 10/02/18 at 13:30 Levothyroxine Sodium (Synthroid) 50 mcg BEFORE BREAKFAST GTB Last administered on 10/07/18 06:33; Admin Dose 50 MCG; Start 10/03/18 at 07:00 Tramadol HCl (Ultram) 50 mg BID PEG Last administered on 10/07/18 08:33; Admin Dose 50 MG; Start 10/03/18 at 21:00 Potassium Chloride (Potassium Chloride Pwd/Soln) 40 meq DAILY GTB Last administered on 10/07/18 08:32; Admin Dose 40 MEQ; Start 10/04/18 at 18:00 Vancomycin HCl (Vancomycin Oral Syringe) 125 mg Q6 GTB Last administered on 10/07/18 06:33; Admin Dose 125 MG; Start 10/05/18 at 00:00 Famotidine (Pepcid) 20 mg HS GTB Last administered on 10/06/18 22:24; Admin Dose 20 MG; Start 10/04/18 at 21:00 Heparin Sodium (Porcine) (Heparin (1000 Units/ml)) 5,400 unit PER PROTOCOL PRN IV aPTT<47; Start 10/05/18 at 07:30 Heparin Sodium (Porcine) (Heparin (1000 Units/ml)) 2,700 unit PER PROTOCOL PRN IV aPTT<47-57 Last administered on 10/05/18 22:12; Admin Dose 2,700 UNIT; Start 10/05/18 at 07:30 Heparin Sodium (Porcine) 250 ml @ 0 mls/hr PER PROTOCOL IV Last administered on 10/06/18 06:53; Admin Dose 12 MLS/HR; Start 10/05/18 at 07:30 Gentamicin Sulfate (Gentamicin Iv Per Pharmacy) GENTAMICIN PER PHARMACY NOTE XX ; Start 10/05/18 at 16:00 Gentamicin Sulfate 50 ml @ 100 mls/hr Q24H IVPB Last administered on 10/06/18 18:26; Admin Dose 100 MLS/HR; Start 10/05/18 at 18:30 Amiodarone HCl 900 mg/Dextrose 500 ml @ 0 mls/hr Q0M IV Last administered on 10/05/18 21:32; Admin Dose 33.3 MLS/HR; Start 10/05/18 at 22:00 Metoprolol Succinate (Toprol Xl) 25 mg DAILY PO Last administered on 6/27/19at 08:32; Admin Dose 25 MG; Start 10/06/18 at 09:30 Miscellaneous Information (*Rx Drug Level Order Reminder*) GENTAMICIN TR AT 1730 PRIOR... 1730 ONCE XX ; Start 10/07/18 at 17:30; Stop 10/07/18 at 17:31 Miscellaneous Information (*Rx Drug Level Order Reminder*) GENTAMICIN PEAK 10/07 AT 1... 1930 ONCE XX ; Start 10/07/18 at 19:30; Stop 10/07/18 at 19:31 Allergies: Coded Allergies: No Known Allergy (Unverified , 10/02/18) Past Surgical History Past Surgical Hx: no surgical history Social History Alcohol Use: none Smoking Status: Unknown if ever smoked Drug Use: none Exam/Review of Systems Exam Vitals Vital Signs Date Temp Pulse Resp B/P (MAP) Pulse Ox O2 O2 Flow FiO2 Time Delivery Rate 10/07/18 98.5 89 18 120/64 100 08:08 (82) 10/07/18 30 08:00 10/06/18 Mechanical 18:53 Ventilator Intake and Output 10/06/18 10/06/18 10/07/18 1515:00 23:00 07:00 IntakeIntake Total 670.03 ml 303.67 ml OutputOutput Total 1050 ml 245 ml 1150 ml BalanceBalance -379.97 ml 58.67 ml -1150 ml Constitutional: non-verbal Psych: other (Unable to assess) Eyes: other (Left visual gaze pupils equally round reactive light nonicteric) Neck: supple, non-tender Respiratory: clear to auscultation, normal air movement Cardiovascular: regular rate and rhythm, nl pulses Gastrointestinal: soft, nl liver, spleen, non-tender Neurological: other (Nonresponsive to any simple tactile stimulation no spontaneous movements sluggish oculocephalics is overbreathing the ventilator.) Results Result Diagram: 10/07/1824 10/07/18 0524 Results 24hrs Laboratory Tests Test 10/06/18 10:28 10/07/18 05:24 Prothrombin Time 16.7 H Prothrombin Time Ratio 1.3 INR International Normalized Ratio 1.34 Activated Partial Thromboplast Time 47.3 H White Blood Count 9.6 Red Blood Count 2.73 L Hemoglobin 7.4 L Hematocrit 24.3 L Mean Corpuscular Volume 89.0 Mean Corpuscular Hemoglobin 27.1 L Mean Corpuscular Hemoglobin Concent 30.5 L Red Cell Distribution Width 16.9 H Platelet Count 346 Mean Platelet Volume 10.1 Immature Granulocytes % 2.100 H Neutrophils % 62.2 Lymphocytes % 23.9 Monocytes % 7.5 Eosinophils % 3.8 Basophils % 0.5 Nucleated Red Blood Cells % 0.0 Immature Granulocytes # 0.200 H Neutrophils # 6.0 Lymphocytes # 2.3 Monocytes # 0.7 Eosinophils # 0.4 Basophils # 0.1 Nucleated Red Blood Cells # 0.0 Sodium Level 148 H Potassium Level 3.9 Chloride Level 123 H Carbon Dioxide Level 19 L Anion Gap 6 Blood Urea Nitrogen 13 Creatinine 1.07 Est Glomerular Filtrat Rate mL/min Glucose Level 87 Calcium Level 7.6 L Medications Medication Current Medications IV Flush (NS 3 ml) 3 ml PER PROTOCOL IV ; Start 10/02/18 at 13:30 Hydromorphone HCl (Dilaudid) 0.5 mg Q4H PRN IV .SEVERE PAIN 7-10 Last administered on 10/05/18at 12:55; Admin Dose 0.5 MG; Start 10/02/18 at 13:30 Levothyroxine Sodium (Synthroid) 50 mcg BEFORE BREAKFAST GTB Last administered on 10/07/18 06:33; Admin Dose 50 MCG; Start 10/03/18 at 07:00 Tramadol HCl (Ultram) 50 mg BID PEG Last administered on 10/07/18 08:33; Admin Dose 50 MG; Start 10/03/18 at 21:00 Potassium Chloride (Potassium Chloride Pwd/Soln) 40 meq DAILY GTB Last administered on 10/07/18 08:32; Admin Dose 40 MEQ; Start 10/04/18 at 18:00 Vancomycin HCl (Vancomycin Oral Syringe) 125 mg Q6 GTB Last administered on 10/07/18 06:33; Admin Dose 125 MG; Start 10/05/18 at 00:00 Famotidine (Pepcid) 20 mg HS GTB Last administered on 10/06/18 22:24; Admin Dose 20 MG; Start 10/04/18 at 21:00 Heparin Sodium (Porcine) (Heparin (1000 Units/ml)) 5,400 unit PER PROTOCOL PRN IV aPTT<47; Start 10/05/18 at 07:30 Heparin Sodium (Porcine) (Heparin (1000 Units/ml)) 2,700 unit PER PROTOCOL PRN IV aPTT<47-57 Last administered on 10/05/18at 22:12; Admin Dose 2,700 UNIT; Start 10/05/18 at 07:30 Heparin Sodium (Porcine) 250 ml @ 0 mls/hr PER PROTOCOL IV Last administered on 10/06/18at 06:53; Admin Dose 12 MLS/HR; Start 10/05/18 at 07:30 Gentamicin Sulfate (Gentamicin Iv Per Pharmacy) GENTAMICIN PER PHARMACY NOTE XX ; Start 10/05/18 at 16:00 Gentamicin Sulfate 50 ml @ 100 mls/hr Q24H IVPB Last administered on 10/06/18at 18:26; Admin Dose 100 MLS/HR; Start 10/05/18 at 18:30 Amiodarone HCl 900 mg/Dextrose 500 ml @ 0 mls/hr Q0M IV Last administered on 10/05/18at 21:32; Admin Dose 33.3 MLS/HR; Start 10/05/18 at 22:00 Metoprolol Succinate (Toprol Xl) 25 mg DAILY PO Last administered on 10/07/18at 08:32; Admin Dose 25 MG; Start 10/06/18 at 09:30 Miscellaneous Information (*Rx Drug Level Order Reminder*) GENTAMICIN TR AT 1730 PRIOR... 1730 ONCE XX ; Start 10/07/18 at 17:30; Stop 10/07/18 at 17:31 Miscellaneous Information (*Rx Drug Level Order Reminder*) GENTAMICIN PEAK 10/07 AT 1... 1930 ONCE XX ; Start 10/07/18 at 19:30; Stop 10/07/18 at 19:31 REMA STEINER Oct 07, 2018 09:45
--- NOTE | 2018-10-07 10:23 | CONS ---
Assessment/Plan Assessment/Plan Hospital Course (Demo Recall) Paroxysmal atrial fibrillation: Now converted on amiodarone. Was on heparin due to DVT but now on hold due to head CT findings DVT: right femoral. On heparin, but head CT with multiple abnormalities. If not an anticoagulation candidate, can consider IVC filter though at that point, should have goals of care discussion with family Cardiomyopathy: EF 35%, ?etiology. Not a candidate for evaluation UTI C diff colitis Sepsis Chronic VDRF Brain tumor Chronic encephalopathy -if family wants aggressive treatment, would need to determine safety of restarting anticoagulation in setting of CT findings (?neuro or neurosurg) -d/c amiodarone drip. Start amiodarone 400mg BID -metoprolol succinate 25mg as tolerated -antibiotics per ID Consultation Date/Type/Reason Admit Date/Time Oct 02, 2018 at 12:38 Initial Consult Date 10/06/18 Type of Consult Cardiology Requesting Provider: VIRGIE WOLF Date/Time of Note DATE: 10/07/18 TIME: 10:20 24 HR Interval Summary Free Text/Dictation Remains in sinus. Head CT with multiple abnormalities. Will be having a family meeting today per discussion Exam/Review of Systems Vital Signs Vitals Vital Signs Date Temp Pulse Resp B/P (MAP) Pulse Ox O2 O2 Flow FiO2 Time Delivery Rate 10/07/18 89 18 99 30 09:20 10/07/18 98.5 120/64 08:08 (82) 10/06/18 Mechanical 18:53 Ventilator Intake and Output 10/06/18 10/06/18 10/07/18 1515:00 23:00 07:00 IntakeIntake Total 670.03 ml 303.67 ml OutputOutput Total 1050 ml 245 ml 1150 ml BalanceBalance -379.97 ml 58.67 ml -1150 ml Exam Constitutional: No alert Eyes: other (s/p trach) Neck: No jvd (unable to examine ) Cardiovascular: regular rate and rhythm; No systolic murmur Gastrointestinal: soft; No distended Neurological: No nl mental status, No nl speech Labs Result Diagram: 10/07/1852310/07/18523 Results 24hrs Laboratory Tests Test 10/06/18 10:28 10/07/18 05:24 Prothrombin Time 16.7 H Prothrombin Time Ratio 1.3 INR International Normalized Ratio 1.34 Activated Partial Thromboplast Time 47.3 H White Blood Count 9.6 Red Blood Count 2.73 L Hemoglobin 7.4 L Hematocrit 24.3 L Mean Corpuscular Volume 89.0 Mean Corpuscular Hemoglobin 27.1 L Mean Corpuscular Hemoglobin Concent 30.5 L Red Cell Distribution Width 16.9 H Platelet Count 346 Mean Platelet Volume 10.1 Immature Granulocytes % 2.100 H Neutrophils % 62.2 Lymphocytes % 23.9 Monocytes % 7.5 Eosinophils % 3.8 Basophils % 0.5 Nucleated Red Blood Cells % 0.0 Immature Granulocytes # 0.200 H Neutrophils # 6.0 Lymphocytes # 2.3 Monocytes # 0.7 Eosinophils # 0.4 Basophils # 0.1 Nucleated Red Blood Cells # 0.0 Sodium Level 148 H Potassium Level 3.9 Chloride Level 123 H Carbon Dioxide Level 19 L Anion Gap 6 Blood Urea Nitrogen 13 Creatinine 1.07 Est Glomerular Filtrat Rate mL/min Glucose Level 87 Calcium Level 7.6 L Medications Medications Current Medications IV Flush (NS 3 ml) 3 ml PER PROTOCOL IV ; Start 10/02/18 at 13:30 Hydromorphone HCl (Dilaudid) 0.5 mg Q4H PRN IV .SEVERE PAIN 7-10 Last administered on 10/05/18 12:55; Admin Dose 0.5 MG; Start 10/02/18 at 13:30 Levothyroxine Sodium (Synthroid) 50 mcg BEFORE BREAKFAST GTB Last administered on 10/07/18 06:33; Admin Dose 50 MCG; Start 10/03/18 at 07:00 Tramadol HCl (Ultram) 50 mg BID PEG Last administered on 10/07/18 08:33; Admin Dose 50 MG; Start 10/03/18 at 21:00 Potassium Chloride (Potassium Chloride Pwd/Soln) 40 meq DAILY GTB Last administered on 10/07/18 08:32; Admin Dose 40 MEQ; Start 10/04/18 at 18:00 Vancomycin HCl (Vancomycin Oral Syringe) 125 mg Q6 GTB Last administered on 06:33; Admin Dose 125 MG; Start 10/05/18 at 00:00 Famotidine (Pepcid) 20 mg HS GTB Last administered on 10/06/18 22:24; Admin Dose 20 MG; Start 10/04/18 at 21:00 Heparin Sodium (Porcine) (Heparin (1000 Units/ml)) 5,400 unit PER PROTOCOL PRN IV aPTT<47; Start 10/05/18 at 07:30 Heparin Sodium (Porcine) (Heparin (1000 Units/ml)) 2,700 unit PER PROTOCOL PRN IV aPTT<47-57 Last administered on 10/05/18at 22:12; Admin Dose 2,700 UNIT; Start 10/05/18 at 07:30 Heparin Sodium (Porcine) 250 ml @ 0 mls/hr PER PROTOCOL IV Last administered on 10/06/18at 06:53; Admin Dose 12 MLS/HR; Start 10/05/18 at 07:30 Gentamicin Sulfate (Gentamicin Iv Per Pharmacy) GENTAMICIN PER PHARMACY NOTE XX ; Start 10/05/18 at 16:00 Gentamicin Sulfate 50 ml @ 100 mls/hr Q24H IVPB Last administered on 10/06/18at 18:26; Admin Dose 100 MLS/HR; Start 10/05/18 at 18:30 Amiodarone HCl 900 mg/Dextrose 500 ml @ 0 mls/hr Q0M IV Last administered on 10/05/18at 21:32; Admin Dose 33.3 MLS/HR; Start 10/05/18 at 22:00 Metoprolol Succinate (Toprol Xl) 25 mg DAILY PO Last administered on 10/07/18at 08:32; Admin Dose 25 MG; Start 10/06/18 at 09:30 Miscellaneous Information (*Rx Drug Level Order Reminder*) GENTAMICIN TR AT 1730 PRIOR... 1730 ONCE XX ; Start 10/07/18 at 17:30; Stop 10/07/18 at 17:31 Miscellaneous Information (*Rx Drug Level Order Reminder*) GENTAMICIN PEAK 10/07 AT 1... 1930 ONCE XX ; Start 10/07/18 at 19:30; Stop 10/07/18 at 19:31 FRED BERGER Oct 07, 2018 10:23
[2018-10-07] MEDS: AMIODARONE 200 MG TAB PO SCH ×2 (11:25→22:24)
--- NOTE | 2018-10-07 11:28 | CONS ---
Consult Date/Type/Reason Admit Date/Time Oct 02, 2018 at 12:38 Initial Consult Date 10/06/18 Type of Consult Pulmonary Requesting Provider: VIRGIE WOLF Date/Time of Note DATE: 10/07/18 TIME: 11:26 Subjective Patient comfortable this morning no respiratory distress. Objective Vital Signs Date Temp Pulse Resp B/P (MAP) Pulse Ox O2 O2 Flow FiO2 Time Delivery Rate 10/07/18 98.0 84 18 121/64 98 11:08 (83) 10/07/18 30 09:20 10/06/18 Mechanical 18:53 Ventilator Intake and Output 10/06/18 10/06/18 10/07/18 1515:00 23:00 07:00 IntakeIntake Total 670.03 ml 303.67 ml OutputOutput Total 1050 ml 245 ml 1150 ml BalanceBalance -379.97 ml 58.67 ml -1150 ml Exam PHYSICAL EXAMINATION: GENERAL: Chronically ill appearing gentleman, appears comfortable at rest, in no acute distress. VITAL SIGNS: NECK: Trach site is clean and intact. CARDIAC: S1, S2. No added sounds or murmurs. CHEST: Diminished air entry bilaterally. ABDOMEN: Soft, nontender. No guarding or rebound. EXTREMITIES: No cyanosis, clubbing or edema. NEUROLOGICAL: Unable to assess. Vent Setting Ventilator Support Mode: AC Fraction of Inspired Oxygen pe: 30 Positive End Expiratory Pressu: 5.0 Results/Medications Result Diagram: 10/07/1852310/07/18 0524 Results 24 hrs Laboratory Tests Test 10/07/18 05:24 White Blood Count 9.6 Red Blood Count 2.73 L Hemoglobin 7.4 L Hematocrit 24.3 L Mean Corpuscular Volume 89.0 Mean Corpuscular Hemoglobin 27.1 L Mean Corpuscular Hemoglobin Concent 30.5 L Red Cell Distribution Width 16.9 H Platelet Count 346 Mean Platelet Volume 10.1 Immature Granulocytes % 2.100 H Neutrophils % 62.2 Lymphocytes % 23.9 Monocytes % 7.5 Eosinophils % 3.8 Basophils % 0.5 Nucleated Red Blood Cells % 0.0 Immature Granulocytes # 0.200 H Neutrophils # 6.0 Lymphocytes # 2.3 Monocytes # 0.7 Eosinophils # 0.4 Basophils # 0.1 Nucleated Red Blood Cells # 0.0 Sodium Level 148 H Potassium Level 3.9 Chloride Level 123 H Carbon Dioxide Level 19 L Anion Gap 6 Blood Urea Nitrogen 13 Creatinine 1.07 Est Glomerular Filtrat Rate mL/min Glucose Level 87 Calcium Level 7.6 L Medications Current Medications IV Flush (NS 3 ml) 3 ml PER PROTOCOL IV ; Start 10/02/18 at 13:30 Hydromorphone HCl (Dilaudid) 0.5 mg Q4H PRN IV .SEVERE PAIN 7-10 Last administered on 10/05/18 12:55; Admin Dose 0.5 MG; Start 10/02/18 at 13:30 Levothyroxine Sodium (Synthroid) 50 mcg BEFORE BREAKFAST GTB Last administered on 10/07/18 06:33; Admin Dose 50 MCG; Start 10/03/18 at 07:00 Tramadol HCl (Ultram) 50 mg BID PEG Last administered on 10/07/18 08:33; Admin Dose 50 MG; Start 10/03/18 at 21:00 Potassium Chloride (Potassium Chloride Pwd/Soln) 40 meq DAILY GTB Last a dministered on 10/07/18 08:32; Admin Dose 40 MEQ; Start 10/04/18 at 18:00 Vancomycin HCl (Vancomycin Oral Syringe) 125 mg Q6 GTB Last administered on 10/07/18 06:33; Admin Dose 125 MG; Start 10/05/18 at 00:00 Famotidine (Pepcid) 20 mg HS GTB Last administered on 10/06/18 22:24; Admin Dose 20 MG; Start 10/04/18 at 21:00 Heparin Sodium (Porcine) (Heparin (1000 Units/ml)) 5,400 unit PER PROTOCOL PRN IV aPTT<47; Start 10/05/18 at 07:30 Heparin Sodium (Porcine) (Heparin (1000 Units/ml)) 2,700 unit PER PROTOCOL PRN IV aPTT<47-57 Last administered on 10/05/18 22:12; Admin Dose 2,700 UNIT; Star t 10/05/18 at 07:30 Heparin Sodium (Porcine) 250 ml @ 0 mls/hr PER PROTOCOL IV Last administered on 10/06/18 06:53; Admin Dose 12 MLS/HR; Start 10/05/18 at 07:30 Gentamicin Sulfate (Gentamicin Iv Per Pharmacy) GENTAMICIN PER PHARMACY NOTE XX ; Start 10/05/18 at 16:00 Gentamicin Sulfate 50 ml @ 100 mls/hr Q24H IVPB Last administered on 10/06/18at 18:26; Admin Dose 100 MLS/HR; Start 10/05/18 at 18:30 Metoprolol Succinate (Toprol Xl) 25 mg DAILY PO Last administered on 10/07/18at 08:32; Admin Dose 25 MG; Start 10/06/18 at 09:30 Miscellaneous Information (*Rx Drug Level Order Reminder*) GENTAMICIN TR AT 1730 PRIOR... 1730 ONCE XX ; Start 10/07/18 at 17:30; Stop 10/07/18 at 17:31 Miscellaneous Information (*Rx Drug Level Order Reminder*) GENTAMICIN PEAK 10/07 AT 1... 1930 ONCE XX ; Start 10/07/18 at 19:30; Stop 10/07/18 at 19:31 Amiodarone HCl (Cordarone) 400 mg BID PO ; Start 10/07/18 at 10:30 Assessment/Plan Hospital Course (Demo Recall) Impression 1. Pseudomonal urinary tract infection. 2. History of brain carcinoma. 3. Ventilator-dependent respiratory failure. 4. Common femoral, superficial vein thrombosis. 5. Continue rate control with amiodarone consider transition to p.o. PLAN : 1. Continue vent support. 2. Antibiotics. 3. Tube feedings. 4. Anticoagulation. 5. DVT and GI prophylaxis. 6. CT brain findings noted. Dale evaluation. ELIOT GALEAS MD, [facility] Oct 07, 2018 11:28
--- NOTE | 2018-10-07 14:12 | CONS ---
Assessment/Plan Assessment/Plan Hospital Course (Demo Recall) No acute events overnight patient is lying comfortably in bed no fevers overnight Indwelling: Trach PEG Mcintyre Antimicrobials: Gentamicin, oral vancomycin Physical examination: Well-developed chronically ill-appearing elderly man who is in no distress. Head atraumatic normocephalic neck is supple tracheostomy present chest rise symmetrical breath sounds diminished bases. Heart: S1-S2. A bdomen soft bowel sounds present. Assessment: 1. Sepsis 2. C. difficile colitis 3. Urinary tract infection 4. Paroxysmal atrial fibrillation on admission 5. Cardiomyopathy 6. Chronic encephalopathy 7. Right lower extremity DVT Plan: Patient is stable, continue present care and antibiotics, follow recommendations of specialists Consultation Date/Type/Reason Admit Date/Time Oct 02, 2018 at 12:38 Initial Consult Date 10/06/18 Type of Consult id Requesting Provider: VIRGIE WOLF Date/Time of Note DATE: 10/07/18 TIME: 14:11 Exam/Review of Systems Exam Vitals Vital Signs Date Temp Pulse Resp B/P (MAP) Pulse Ox O2 O2 Flow FiO2 Time Delivery Rate 10/07/18 98.0 84 18 121/64 98 11:08 (83) 10/07/18 30 11:05 10/06/18 Mechanical 18:53 Ventilator Intake and Output 10/06/18 10/06/18 10/07/18 1515:00 23:00 07:00 IntakeIntake Total 670.03 ml 303.67 ml OutputOutput Total 1050 ml 245 ml 1150 ml BalanceBalance -379.97 ml 58.67 ml -1150 ml Results Result Diagram: 10/07/1852310/07/18523 Results 24hrs Laboratory Tests Test 10/07/18 05:24 White Blood Count 9.6 Red Blood Count 2.73 L Hemoglobin 7.4 L Hematocrit 24.3 L Mean Corpuscular Volume 89.0 Mean Corpuscular Hemoglobin 27.1 L Mean Corpuscular Hemoglobin Concent 30.5 L Red Cell Distribution Width 16.9 H Platelet Count 346 Mean Platelet Volume 10.1 Immature Granulocytes % 2.100 H Neutrophils % 62.2 Lymphocytes % 23.9 Monocytes % 7.5 Eosinophils % 3.8 Basophils % 0.5 Nucleated Red Blood Cells % 0.0 Immature Granulocytes # 0.200 H Neutrophils # 6.0 Lymphocytes # 2.3 Monocytes # 0.7 Eosinophils # 0.4 Basophils # 0.1 Nucleated Red Blood Cells # 0.0 Sodium Level 148 H Potassium Level 3.9 Chloride Level 123 H Carbon Dioxide Level 19 L Anion Gap 6 Blood Urea Nitrogen 13 Creatinine 1.07 Est Glomerular Filtrat Rate mL/min Glucose Level 87 Calcium Level 7.6 L Medications Medication Current Medications IV Flush (NS 3 ml) 3 ml PER PROTOCOL IV ; Start 10/02/18 at 13:30 Hydromorphone HCl (Dilaudid) 0.5 mg Q4H PRN IV .SEVERE PAIN 7-10 Last administered on 10/05/18 12:55; Admin Dose 0.5 MG; Start 10/02/18 at 13:30 Levothyroxine Sodium (Synthroid) 50 mcg BEFORE BREAKFAST GTB Last administered on 10/07/18 06:33; Admin Dose 50 MCG; Start 10/03/18 at 07:00 Tramadol HCl (Ultram) 50 mg BID PEG Last administered on 10/07/18 08:33; Admin Dose 50 MG; Start 10/03/18 at 21:00 Potassium Chloride (Potassium Chloride Pwd/Soln) 40 meq DAILY GTB Last adminis tered on 10/07/18 08:32; Admin Dose 40 MEQ; Start 10/04/18 at 18:00 Vancomycin HCl (Vancomycin Oral Syringe) 125 mg Q6 GTB Last administered on 10/07/18 11:25; Admin Dose 125 MG; Start 10/05/18 at 00:00 Famotidine (Pepcid) 20 mg HS GTB Last administered on 10/06/18 22:24; Admin Dose 20 MG; Start 10/04/18 at 21:00 Heparin Sodium (Porcine) (Heparin (1000 Units/ml)) 5,400 unit PER PROTOCOL PRN I V aPTT<47; Start 10/05/18 at 07:30 Heparin Sodium (Porcine) (Heparin (1000 Units/ml)) 2,700 unit PER PROTOCOL PRN IV aPTT<47-57 Last administered on 10/05/18 22:12; Admin Dose 2,700 UNIT; Start 10/05/18 at 07:30 Heparin Sodium (Porcine) 250 ml @ 0 mls/hr PER PROTOCOL IV Last administered on 10/06/18 06:53; Admin Dose 12 MLS/HR; Start 10/05/18 at 07:30 Gentamicin Sulfate (Gentamicin Iv Per Pharmacy) GENTAMICIN PER PHARMACY NOTE XX ; Start 10/05/18 at 16:00 Gentamicin Sulfate 50 ml @ 100 mls/hr Q24H IVPB Last administered on 10/06/18at 18:26; Admin Dose 100 MLS/HR; Start 10/05/18 at 18:30 Metoprolol Succinate (Toprol Xl) 25 mg DAILY PO Last administered on 10/07/18at 08:32; Admin Dose 25 MG; Start 10/06/18 at 09:30 Miscellaneous Information (*Rx Drug Level Order Reminder*) GENTAMICIN TR AT 1730 PRIOR... 1730 ONCE XX ; Start 10/07/18 at 17:30; Stop 10/07/18 at 17:31 Miscellaneous Information (*Rx Drug Level Order Reminder*) GENTAMICIN PEAK 10/07 AT 1... 1930 ONCE XX ; Start 10/07/18 at 19:30; Stop 10/07/18 at 19:31 Amiodarone HCl (Cordarone) 400 mg BID PO Last administered on 10/07/18at 11:25; Admin Dose 400 MG; Start 10/07/18 at 10:30 FITO ALEXANDER NP Oct 07, 2018 14:12
--- NOTE | 2018-10-07 17:10 | RADRPT ---
Vent Rate: 195 bpm RR Interval: 307 msec [place] Interval: [id number] msec QRS Duration: 96 msec QT Interval: 276 msec QTC Interval: 498 msec P-R-T [place]: [id number] - -59 - 112 degrees Atrial fibrillation with rapid V-rate...A-rate 205 Left anterior fascicular block...axis(240,-40), init forces inf Nonspecific T abnormalities, lateral leads...T <-0.10mV, I aVL V5 V6 Lead(s) V1 were not used for morphology analysis Electronically Signed By: Anthony Macedo
--- NOTE | 2018-10-07 17:14 | RADRPT ---
Vent Rate: 163 bpm RR Interval: 367 msec [place] Interval: [id number] msec QRS Duration: 101 msec QT Interval: 309 msec QTC Interval: 510 msec P-R-T [place]: [id number] - -64 - 86 degrees Atrial fibrillation with rapid V-rate...A-rate 263 Left anterior fascicular block...axis(240,-40), init forces inf Low voltage, precordial leads...precordial leads <1.0mV Repolarization abnormality, prob rate related...ST dep, T neg, tachycardia Electronically Signed By: Anthony Macedo
[2018-10-07] MEDS: GENTAMICIN 100 MG/50 ML NS IVPB SCH (17:53)
[2018-10-07] MEDS: FAMOTIDINE 20 MG TAB GTB SCH (22:22)
--- NOTE | 2018-10-07 23:53 | PN ---
Date/Time of Note Date/Time of Note DATE: 10/07/18 TIME: 23:53 Assessment/Plan VTE Prophylaxis Risk score (from [facility] [place]0 risk: 8 SCD applied (from [facility] [place]): Yes Pharmacological prophylaxis: NA/contraindicated Pharm contraindication: other (CT findings of subdural) Lines/Catheters IV Catheter Type (from [facility]): Peripheral IV Urinary Cath still in place: Yes Reason Cath still needed: other (indicate) Assessment/Plan Assessment/Plan 1. s/p Sepsis. Urine culture did show pseudomonas aeruginosa, puga-sensitive. cont abx per ID 2. Recent diarrhea. Stool C. difficile (+). Abx per ID 3. A-fib with RVR: currently rate controlled s/p diltiazem drip and amiodarone. Cont meds per Cardiology. 4. Thrombus within the right common femoral and proximal superficial femoral veins. anticoagulation on hold given CT head findings -Consider Neuro consult in am to weigh on this 5. Anemia. Likely of chronic disease. Monitor H&H. Transfuse blood products as needed. 6. History of chronic respiratory failure on ventilator. Continue pulmonary hygiene. Consideration of Dale transfer once more medically stable 7. History of brain cancer status post surgery. Continue supportive care for now. Patient does have reported chronic encephalopathy. Suspect baseline at present. Per Head CT result from yesterday, anticoagulation on hold as mentioned on # 4 Result Diagram: 10/07/18 0524 10/07/18 0524 Results 24hrs Laboratory Tests Test 10/07/18 05:24 10/07/18 17:52 10/07/18 19:49 White Blood Count 9.6 Red Blood Count 2.73 L Hemoglobin 7.4 L Hematocrit 24.3 L Mean Corpuscular Volume 89.0 Mean Corpuscular Hemoglobin 27.1 L Mean Corpuscular Hemoglobin Concent 30.5 L Red Cell Distribution Width 16.9 H Platelet Count 346 Mean Platelet Volume 10.1 Immature Granulocytes % 2.100 H Neutrophils % 62.2 Lymphocytes % 23.9 Monocytes % 7.5 Eosinophils % 3.8 Basophils % 0.5 Nucleated Red Blood Cells % 0.0 Immature Granulocytes # 0.200 H Neutrophils # 6.0 Lymphocytes # 2.3 Monocytes # 0.7 Eosinophils # 0.4 Basophils # 0.1 Nucleated Red Blood Cells # 0.0 Sodium Level 148 H Potassium Level 3.9 Chloride Level 123 H Carbon Dioxide Level 19 L Anion Gap 6 Blood Urea Nitrogen 13 Creatinine 1.07 Est Glomerular Filtrat Rate mL/min Glucose Level 87 Calcium Level 7.6 L Gentamicin Level Trough 1.6 Gentamicin Level Peak 5.4 Subjective 24 Hr Interval Summary Free Text/Dictation no acute distress Exam/Review of Systems Exam Vitals Vital Signs Date Temp Pulse Resp B/P (MAP) Pulse Ox O2 O2 Flow FiO2 Time Delivery Rate 10/07/18 95 16 100 30 23:12 10/07/18 99.3 131/69 20:00 (89) 10/06/18 Mechanical 18:53 Ventilator Intake and Output 10/06/18 10/06/18 10/07/18 1515:00 23:00 07:00 IntakeIntake Total 670.03 ml 303.67 ml OutputOutput Total 1050 ml 245 ml 1150 ml BalanceBalance -379.97 ml 58.67 ml -1150 ml Constitutional: other (non-verbal, doesnot folow commands) Head: other (s/p craniotomy) Eyes: other (left eye closed) Respiratory: diminished breath sounds Cardiovascular: other (tachy with regular rhythm) Gastrointestinal: soft, other (gtube in place) Extremities: other (mild edema) Neurological: other (non-verbal, not oriented) Results Results 24hrs Laboratory Tests Test 10/07/18 05:24 10/07/18 17:52 10/07/18 19:49 White Blood Count 9.6 Red Blood Count 2.73 L Hemoglobin 7.4 L Hematocrit 24.3 L Mean Corpuscular Volume 89.0 Mean Corpuscular Hemoglobin 27.1 L Mean Corpuscular Hemoglobin Concent 30.5 L Red Cell Distribution Width 16.9 H Platelet Count 346 Mean Platelet Volume 10.1 Immature Granulocytes % 2.100 H Neutrophils % 62.2 Lymphocytes % 23.9 Monocytes % 7.5 Eosinophils % 3.8 Basophils % 0.5 Nucleated Red Blood Cells % 0.0 Immature Granulocytes # 0.200 H Neutrophils # 6.0 Lymphocytes # 2.3 Monocytes # 0.7 Eosinophils # 0.4 Basophils # 0.1 Nucleated Red Blood Cells # 0.0 Sodium Level 148 H Potassium Level 3.9 Chloride Level 123 H Carbon Dioxide Level 19 L Anion Gap 6 Blood Urea Nitrogen 13 Creatinine 1.07 Est Glomerular Filtrat Rate mL/min Glucose Level 87 Calcium Level 7.6 L Gentamicin Level Trough 1.6 Gentamicin Level Peak 5.4 Medications Medication Current Medications IV Flush (NS 3 ml) 3 ml PER PROTOCOL IV ; Start 10/02/18 at 13:30 Hydromorphone HCl (Dilaudid) 0.5 mg Q4H PRN IV .SEVERE PAIN 7-10 Last administered on 10/05/18 12:55; Admin Dose 0.5 MG; Start 10/02/18 at 13:30 Levothyroxine Sodium (Synthroid) 50 mcg BEFORE BREAKFAST GTB Last administered on 10/07/18 06:33; Admin Dose 50 MCG; Start 10/03/18 at 07:00 Tramadol HCl (Ultram) 50 mg BID PEG Last administered on 10/07/18 22:23; Admin Dose 50 MG; Start 10/03/18 at 21:00 Potassium Chloride (Potassium Chloride Pwd/Soln) 40 meq DAILY GTB Last administered on 10/07/18 08:32; Admin Dose 40 MEQ; Start 10/04/18 at 18:00 Vancomycin HCl (Vancomycin Oral Syringe) 125 mg Q6 GTB Last administered on 10/07/18 17:53; Admin Dose 125 MG; Start 10/05/18 at 00:00 Famotidine (Pepcid) 20 mg HS GTB Last administered on 10/07/18 22:22; Admin Dose 20 MG; Start 10/04/18 at 21:00 Gentamicin Sulfate (Gentamicin Iv Per Pharmacy) GENTAMICIN PER PHARMACY NOTE XX ; Start 10/05/18 at 16:00 Gentamicin Sulfate 50 ml @ 100 mls/hr Q24H IVPB Last administered on 10/07/18 17:53; Admin Dose 100 MLS/HR; Start 10/05/18 at 18:30 Metoprolol Succinate (Toprol Xl) 25 mg DAILY PO Last administered on 10/07/18 08:32; Admin Dose 25 MG; Start 10/06/18 at 09:30 Amiodarone HCl (Cordarone) 400 mg BID PO Last administered on 10/07/18 22:24; Admin Dose 400 MG; Start 10/07/18 at 10:30 KIM KAMARA MD Oct 07, 2018 23:53
[2018-10-08] VITALS (18 sets, daily range): BP systolic 109–135; BP diastolic 55–86; PULSE 82–100; RESP 14–22
[2018-10-08] MEDS: VANCOMYCIN HCL 250 MG/5ML POSYG GTB SCH ×4 (02:43→18:02)
[2018-10-08] MEDS: LEVOTHYROXINE 50 MCG TAB GTB SCH (06:25)
[2018-10-08] MEDS: POTASSIUM CHLORIDE 20 MEQ POWDER FOR ORAL SOLN GTB SCH (08:58)
[2018-10-08] MEDS: traMADol 50 MG TAB PEG SCH ×2 (08:59→22:05)
[2018-10-08] MEDS: METOPROLOL (XL) 25 MG TAB PO SCH (08:59)
[2018-10-08] MEDS: AMIODARONE 200 MG TAB PO SCH ×2 (08:59→22:04)
[2018-10-08] MEDS: BALSAM PERU/CASTOR OIL 60 GM TUBE TOP SCH (09:00)
--- NOTE | 2018-10-08 09:11 | PN ---
Date/Time of Note Date/Time of Note DATE: 10/08/18 TIME: 09:02 Assessment/Plan VTE Prophylaxis Risk score (from [facility])>0 risk: 7 [place] [facility] [place] Pharmacological prophylaxis: NA/contraindicated Pharm contraindication: other Lines/Catheters [facility] ([facility] Peripheral IV Urinary Cath still in place: Yes Reason Cath still needed: urinary retention Assessment/Plan Hospital Course S: O: VS- see below PE: Constitutional: other (non-verbal, doesnot folow commands) Head: other (s/p craniotomy) Eyes: other (left eye closed) Respiratory: diminished breath sounds Cardiovascular: other (tachy with regular rhythm) Gastrointestinal: soft, other (gtube in place) Extremities: other (mild edema) Neurological: other (non-verbal, not oriented) Assessment/Plan: 82-year-old male who presents with: 1. s/p Sepsis- Urine culture did show pseudomonas aeruginosa, puga-sensitive. - cont abx per ID 2. Recent diarrhea - Stool C. difficile (+) - Abx per ID 3. A-fib with RVR: currently rate controlled -s/p diltiazem drip and amiodarone. -Monitor, cont PO meds per Cardiology. 4. LE Thrombus: within the right common femoral and proximal superficial femoral veins-however anticoagulation on hold given CT head findings (4 mm left frontal subdural collection which is likely postoperative with probable trace right fron javier subdural collection). -Monitor for now, consider Neuro consult to weigh on this 5. Anemia- Likely of chronic disease. Hemoglobin in the low 8 - high 7 range. -Monitor H&H. -Transfuse blood products as needed, likely if hemoglobin less than 7.5 6. History of chronic respiratory failure on ventilator. - Continue pulmonary hygiene. - Consideration of Dale transfer once more medically stable 7. History of brain cancer: status post surgery prior to admission. Patient does have reported chronic encephalopathy. Suspect baseline at present - Continue supportive care for now. - Per Head CT result from 2 days ago, anticoagulation on hold as mentioned on # 4 8. Hypernatremia: 149 - we will run D5W IV fluids for the next 12 hours, recheck CBC and BMP in the a.m. Dispo: Awaiting possible Dale evaluation vs transfer back to [facility] Result Diagram: 10/08/18 0808 10/08/18 0808 Results 24hrs Laboratory Tests Test 10/07/18 17:52 10/07/18 19:49 10/08/18 08:08 Gentamicin Level Trough 1.6 Gentamicin Level Peak 5.4 White Blood Count 16.4 #H Red Blood Count 2.94 L Hemoglobin 7.8 L Hematocrit 25.2 L Mean Corpuscular Volume 85.7 Mean Corpuscular Hemoglobin 26.5 L Mean Corpuscular Hemoglobin Concent 31.0 L Red Cell Distribution Width 17.3 H Platelet Count 334 Mean Platelet Volume 9.7 Immature Granulocytes % 0.900 H Neutrophils % 71.3 Lymphocytes % 18.8 Monocytes % 7.1 Eosinophils % 1.5 Basophils % 0.4 Nucleated Red Blood Cells % 0.0 Immature Granulocytes # 0.140 H Neutrophils # 11.7 H Lymphocytes # 3.1 H Monocytes # 1.2 H Eosinophils # 0.3 Basophils # 0.1 Nucleated Red Blood Cells # 0.0 Sodium Level 149 H Potassium Level 3.7 Chloride Level 122 H Carbon Dioxide Level 19 L Anion Gap 8 Blood Urea Nitrogen 10 Creatinine 1.04 Est Glomerular Filtrat Rate mL/min Glucose Level 72 Calcium Level 7.9 L Exam/Review of Systems Exam Vitals Vital Signs Date Temp Pulse Resp B/P (MAP) Pulse Ox O2 O2 Flow FiO2 Time Delivery Rate 10/08/18 99.1 100 22 135/80 96 Mechanical 07:53 (98) Ventilator Trach Collar 10/08/18 30 05:26 Intake and Output 10/07/18 10/07/18 10/08/18 1515:00 23:00 07:00 IntakeIntake Total 750 ml 676 ml OutputOutput Total 400 ml 750 ml BalanceBalance 350 ml -74 ml Results Results 24hrs Laboratory Tests Test 10/07/18 17:52 10/07/18 19:49 10/08/18 08:08 Gentamicin Level Trough 1.6 Gentamicin Level Peak 5.4 White Blood Count 16.4 #H Red Blood Count 2.94 L Hemoglobin 7.8 L Hematocrit 25.2 L Mean Corpuscular Volume 85.7 Mean Corpuscular Hemoglobin 26.5 L Mean Corpuscular Hemoglobin Concent 31.0 L Red Cell Distribution Width 17.3 H Platelet Count 334 Mean Platelet Volume 9.7 Immature Granulocytes % 0.900 H Neutrophils % 71.3 Lymphocytes % 18.8 Monocytes % 7.1 Eosinophils % 1.5 Basophils % 0.4 Nucleated Red Blood Cells % 0.0 Immature Granulocytes # 0.140 H Neutrophils # 11.7 H Lymphocytes # 3.1 H Monocytes # 1.2 H Eosinophils # 0.3 Basophils # 0.1 Nucleated Red Blood Cells # 0.0 Sodium Level 149 H Potassium Level 3.7 Chloride Level 122 H Carbon Dioxide Level 19 L Anion Gap 8 Blood Urea Nitrogen 10 Creatinine 1.04 Est Glomerular Filtrat Rate mL/min Glucose Level 72 Calcium Level 7.9 L Medications Medication Current Medications IV Flush (NS 3 ml) 3 ml PER PROTOCOL IV ; Start 10/02/18 at 13:30 Hydromorphone HCl (Dilaudid) 0.5 mg Q4H PRN IV .SEVERE PAIN 7-10 Last administered on 10/05/18 12:55; Admin Dose 0.5 MG; Start 10/02/18 at 13:30 Levothyroxine Sodium (Synthroid) 50 mcg BEFORE BREAKFAST GTB Last administered on 10/08/18 06:25; Admin Dose 50 MCG; Start 10/03/18 at 07:00 Tramadol HCl (Ultram) 50 mg BID PEG Last administered on 10/08/18 08:59; Admin Dose 50 MG; Start 10/03/18 at 21:00 Potassium Chloride (Potassium Chloride Pwd/Soln) 40 meq DAILY GTB Last administered on 10/08/18 08:58; Admin Dose 40 MEQ; Start 10/04/18 at 18:00 Vancomycin HCl (Vancomycin Oral Syringe) 125 mg Q6 GTB Last administered on 10/08/18 06:25; Admin Dose 125 MG; Start 10/05/18 at 00:00 Famotidine (Pepcid) 20 mg HS GTB Last administered on 10/07/18 22:22; Admin Dose 20 MG; Start 10/04/18 at 21:00 Gentamicin Sulfate (Gentamicin Iv Per Pharmacy) GENTAMICIN PER PHARMACY NOTE XX ; Start 10/05/18 at 16:00 Gentamicin Sulfate 50 ml @ 100 mls/hr Q24H IVPB Last administered on 10/07/18 17:53; Admin Dose 100 MLS/HR; Start 10/05/18 at 18:30 Metoprolol Succinate (Toprol Xl) 25 mg DAILY PO Last administered on 6/28/19at 08:59; Admin Dose 25 MG; Start 10/06/18 at 09:30 Amiodarone HCl (Cordarone) 400 mg BID PO Last administered on 10/08/18at 08:59; Admin Dose 400 MG; Start 10/07/18 at 10:30 PATRICIA BRICE Oct 08, 2018 09:11
[2018-10-08] MEDS ORDERED: DEXTROSE 5% 1,000 ML IV SCH (09:30)
--- NOTE | 2018-10-08 10:32 | CONS ---
Consultation Date/Type/Reason Admit Date/Time Oct 02, 2018 at 12:38 Initial Consult Date 10/06/18 Requesting Provider: VIRGIE WOLF Date/Time of Note DATE: 10/08/18 TIME: 10:30 24 HR Interval Summary Free Text/Dictation Family members were very pleasant in consultation yesterday during conference with patient's son mother and daughter. However they made it very clear that they cannot make decisions without other family members involved including change in CODE STATUS. However the seem to understand the severity of his underlying medical condition and did make a statement that they may choose to take him home on hospice care. I could not convince family members to change CODE STATUS. Full palliative care note in detail will be done when other members of the family are available. Exam/Review of Systems Exam Vitals Vital Signs Date Temp Pulse Resp B/P (MAP) Pulse Ox O2 O2 Flow FiO2 Time Delivery Rate 10/08/18 99.1 100 22 135/80 96 Mechanical 07:53 (98) Ventilator Trach Collar 10/08/18 30 05:26 Intake and Output 10/07/18 10/07/18 10/08/18 1515:00 23:00 07:00 IntakeIntake Total 750 ml 676 ml OutputOutput Total 400 ml 750 ml BalanceBalance 350 ml -74 ml Results Result Diagram: 10/08/18 0808 10/08/18 0808 Results 24hrs Laboratory Tests Test 10/07/18 17:52 10/07/18 19:49 10/08/18 08:08 Gentamicin Level Trough 1.6 Gentamicin Level Peak 5.4 White Blood Count 16.4 #H Red Blood Count 2.94 L Hemoglobin 7.8 L Hematocrit 25.2 L Mean Corpuscular Volume 85.7 Mean Corpuscular Hemoglobin 26.5 L Mean Corpuscular Hemoglobin Concent 31.0 L Red Cell Distribution Width 17.3 H Platelet Count 334 Mean Platelet Volume 9.7 Immature Granulocytes % 0.900 H Neutrophils % 71.3 Lymphocytes % 18.8 Monocytes % 7.1 Eosinophils % 1.5 Basophils % 0.4 Nucleated Red Blood Cells % 0.0 Immature Granulocytes # 0.140 H Neutrophils # 11.7 H Lymphocytes # 3.1 H Monocytes # 1.2 H Eosinophils # 0.3 Basophils # 0.1 Nucleated Red Blood Cells # 0.0 Sodium Level 149 H Potassium Level 3.7 Chloride Level 122 H Carbon Dioxide Level 19 L Anion Gap 8 Blood Urea Nitrogen 10 Creatinine 1.04 Est Glomerular Filtrat Rate mL/min Glucose Level 72 Calcium Level 7.9 L Medications Medication Current Medications IV Flush (NS 3 ml) 3 ml PER PROTOCOL IV ; Start 10/02/18 at 13:30 Hydromorphone HCl (Dilaudid) 0.5 mg Q4H PRN IV .SEVERE PAIN 7-10 Last a dministered on 10/05/18 12:55; Admin Dose 0.5 MG; Start 10/02/18 at 13:30 Levothyroxine Sodium (Synthroid) 50 mcg BEFORE BREAKFAST GTB Last administered on 10/08/18 06:25; Admin Dose 50 MCG; Start 10/03/18 at 07:00 Tramadol HCl (Ultram) 50 mg BID PEG Last administered on 10/08/18 08:59; Admin Dose 50 MG; Start 10/03/18 at 21:00 Potassium Chloride (Potassium Chloride Pwd/Soln) 40 meq DAILY GTB Last administered on 10/08/18 08:58; Admin Dose 40 MEQ; Start 10/04/18 at 18:00 Vancomycin HCl (Vancomycin Oral Syringe) 125 mg Q6 GTB Last administered on 10/08/18 06:25; Admin Dose 125 MG; Start 10/05/18 at 00:00 Famotidine (Pepcid) 20 mg HS GTB Last administered on 10/07/18 22:22; Admin D ose 20 MG; Start 10/04/18 at 21:00 Gentamicin Sulfate (Gentamicin Iv Per Pharmacy) GENTAMICIN PER PHARMACY NOTE XX ; Start 10/05/18 at 16:00 Gentamicin Sulfate 50 ml @ 100 mls/hr Q24H IVPB Last administered on 10/07/18 17:53; Admin Dose 100 MLS/HR; Start 10/05/18 at 18:30 Metoprolol Succinate (Toprol Xl) 25 mg DAILY PO Last administered on 10/08/18 08:59; Admin Dose 25 MG; Start 10/06/18 at 09:30 Amiodarone HCl (Cordarone) 400 mg BID PO Last administered on 10/08/18 08:59; Admin Dose 400 MG; Start 10/07/18 at 10:30 Dextrose 1,000 ml @ 75 mls/hr [id number] IV Last administered on 10/08/18at 10:06; Admin Dose 75 MLS/HR; Start 10/08/18 at 09:30; Stop 10/08/18 at 19:00 REMA STEINER Oct 08, 2018 10:32
--- NOTE | 2018-10-08 11:17 | CONS ---
Assessment/Plan Assessment/Plan Hospital Course (Demo Recall) Paroxysmal atrial fibrillation: Now converted on amiodarone. Was on heparin due to DVT but now on hold due to head CT findings DVT: right femoral. On heparin, but head CT with multiple abnormalities. If not an anticoagulation candidate, can consider IVC filter though at that point, should have goals of care discussion with family Cardiomyopathy: EF 35%, ?etiology. Not a candidate for evaluation UTI C diff colitis Sepsis Chronic VDRF Brain tumor Chronic encephalopathy -if family wants aggressive treatment, would need to determine safety of restarting anticoagulation in setting of CT findings (?neuro or neurosurg) -amiodarone 400mg BID x 1 week, then 200mg BID x 1 week, then 200mg daily -metoprolol succinate 25mg as tolerated -antibiotics per ID Consultation Date/Type/Reason Admit Date/Time Oct 02, 2018 at 12:38 Initial Consult Date 10/06/18 Type of Consult Cardiology Requesting Provider: VIRGIE WOLF Date/Time of Note DATE: 10/08/18 TIME: 11:16 24 HR Interval Summary Free Text/Dictation No events. Family conference but family still deciding on coarse of action. Exam/Review of Systems Vital Signs Vitals Vital Signs Date Temp Pulse Resp B/P (MAP) Pulse Ox O2 O2 Flow FiO2 Time Delivery Rate 10/08/18 99.1 100 22 135/80 96 Mechanical 07:53 (98) Ventilator Trach Collar 10/08/18 30 05:26 Intake and Output 10/07/18 10/07/18 10/08/18 1515:00 23:00 07:00 IntakeIntake Total 750 ml 676 ml OutputOutput Total 400 ml 750 ml BalanceBalance 350 ml -74 ml Exam Constitutional: No alert, No oriented ENMT: other (s/p trach) Neck: supple; No jvd (unable to examine ) Respiratory: diminished breath sounds; No clear to auscultation Cardiovascular: regular rate and rhythm, edema (trace) Gastrointestinal: soft; No distended Neurological: No nl mental status, No nl speech Labs Result Diagram: 10/08/18 0808 10/08/18 0808 Results 24hrs Laboratory Tests Test 10/07/18 17:52 10/07/18 19:49 10/08/18 08:08 Gentamicin Level Trough 1.6 Gentamicin Level Peak 5.4 White Blood Count 16.4 #H Red Blood Count 2.94 L Hemoglobin 7.8 L Hematocrit 25.2 L Mean Corpuscular Volume 85.7 Mean Corpuscular Hemoglobin 26.5 L Mean Corpuscular Hemoglobin Concent 31.0 L Red Cell Distribution Width 17.3 H Platelet Count 334 Mean Platelet Volume 9.7 Immature Granulocytes % 0.900 H Neutrophils % 71.3 Lymphocytes % 18.8 Monocytes % 7.1 Eosinophils % 1.5 Basophils % 0.4 Nucleated Red Blood Cells % 0.0 Immature Granulocytes # 0.140 H Neutrophils # 11.7 H Lymphocytes # 3.1 H Monocytes # 1.2 H Eosinophils # 0.3 Basophils # 0.1 Nucleated Red Blood Cells # 0.0 Sodium Level 149 H Potassium Level 3.7 Chloride Level 122 H Carbon Dioxide Level 19 L Anion Gap 8 Blood Urea Nitrogen 10 Creatinine 1.04 Est Glomerular Filtrat Rate mL/min Glucose Level 72 Calcium Level 7.9 L Medications Medications Current Medications IV Flush (NS 3 ml) 3 ml PER PROTOCOL IV ; Start 10/02/18 at 13:30 Hydromorphone HCl (Dilaudid) 0.5 mg Q4H PRN IV .SEVERE PAIN 7-10 Last administered on 10/05/18at 12:55; Admin Dose 0.5 MG; Start 10/02/18 at 13:30 Levothyroxine Sodium (Synthroid) 50 mcg BEFORE BREAKFAST GTB Last administered on 10/08/18 06:25; Admin Dose 50 MCG; Start 10/03/18 at 07:00 Tramadol HCl (Ultram) 50 mg BID PEG Last administered on 10/08/18 08:59; Admin Dose 50 MG; Start 10/03/18 at 21:00 Potassium Chloride (Potassium Chloride Pwd/Soln) 40 meq DAILY GTB Last administered on 10/08/18 08:58; Admin Dose 40 MEQ; Start 10/04/18 at 18:00 Vancomycin HCl (Vancomycin Oral Syringe) 125 mg Q6 GTB Last administered on 10/08/18 06:25; Admin Dose 125 MG; Start 10/05/18 at 00:00 Famotidine (Pepcid) 20 mg HS GTB Last administered on 10/07/18 22:22; Admin Dose 20 MG; Start 10/04/18 at 21:00 Gentamicin Sulfate (Gentamicin Iv Per Pharmacy) GENTAMICIN PER PHARMACY NOTE XX ; Start 10/05/18 at 16:00 Gentamicin Sulfate 50 ml @ 100 mls/hr Q24H IVPB Last administered on 10/07/18at 17:53; Admin Dose 100 MLS/HR; Start 10/05/18 at 18:30 Metoprolol Succinate (Toprol Xl) 25 mg DAILY PO Last administered on 10/08/18at 08:59; Admin Dose 25 MG; Start 10/06/18 at 09:30 Amiodarone HCl (Cordarone) 400 mg BID PO Last administered on 10/08/18at 08:59; Admin Dose 400 MG; Start 10/07/18 at 10:30 Dextrose 1,000 ml @ 75 mls/hr [id number] IV Last administered on 10/08/18at 10:06; Admin Dose 75 MLS/HR; Start 10/08/18 at 09:30; Stop 10/08/18 at 19:00 FRED BERGER Oct 08, 2018 11:17
--- NOTE | 2018-10-08 14:34 | CONS ---
Consult Date/Type/Reason Admit Date/Time Oct 02, 2018 at 12:38 Initial Consult Date 10/06/18 Type of Consult Pulmonary Requesting Provider: VIRGIE WOLF Date/Time of Note DATE: 10/08/18 TIME: 14:32 Subjective Patient comfortable no respiratory distress. Objective Vital Signs Date Temp Pulse Resp B/P (MAP) Pulse Ox O2 O2 Flow FiO2 Time Delivery Rate 10/08/18 98.2 94 22 121/61 96 Mechanical 11:43 (81) Ventilator Trach Collar 10/08/18 30 11:31 Intake and Output 10/07/18 10/07/18 10/08/18 1515:00 23:00 07:00 IntakeIntake Total 750 ml 676 ml OutputOutput Total 400 ml 750 ml BalanceBalance 350 ml -74 ml Exam GENERAL: Chronically ill appearing gentleman, appears comfortable at rest, in no acute distress. VITAL SIGNS: NECK: Trach site is clean and intact. CARDIAC: S1, S2. No added sounds or murmurs. CHEST: Diminished air entry bilaterally. ABDOMEN: Soft, nontender. No guarding or rebound. EXTREMITIES: No cyanosis, clubbing or edema. NEUROLOGICAL: Unable to assess. Vent Setting Ventilator Support Mode: AC Fraction of Inspired Oxygen pe: 30 Positive End Expiratory Pressu: 5.0 Results/Medications Result Diagram: 10/08/18 0808 10/08/18 0808 Results 24 hrs Laboratory Tests Test 10/07/18 17:52 10/07/18 19:49 10/08/18 08:08 Gentamicin Level Trough 1.6 Gentamicin Level Peak 5.4 White Blood Count 16.4 #H Red Blood Count 2.94 L Hemoglobin 7.8 L Hematocrit 25.2 L Mean Corpuscular Volume 85.7 Mean Corpuscular Hemoglobin 26.5 L Mean Corpuscular Hemoglobin Concent 31.0 L Red Cell Distribution Width 17.3 H Platelet Count 334 Mean Platelet Volume 9.7 Immature Granulocytes % 0.900 H Neutrophils % 71.3 Lymphocytes % 18.8 Monocytes % 7.1 Eosinophils % 1.5 Basophils % 0.4 Nucleated Red Blood Cells % 0.0 Immature Granulocytes # 0.140 H Neutrophils # 11.7 H Lymphocytes # 3.1 H Monocytes # 1.2 H Eosinophils # 0.3 Basophils # 0.1 Nucleated Red Blood Cells # 0.0 Sodium Level 149 H Potassium Level 3.7 Chloride Level 122 H Carbon Dioxide Level 19 L Anion Gap 8 Blood Urea Nitrogen 10 Creatinine 1.04 Est Glomerular Filtrat Rate mL/min Glucose Level 72 Calcium Level 7.9 L Medications Current Medications IV Flush (NS 3 ml) 3 ml PER PROTOCOL IV ; Start 10/02/18 at 13:30 Hydromorphone HCl (Dilaudid) 0.5 mg Q4H PRN IV .SEVERE PAIN 7-10 Last adm inistered on 10/05/18 12:55; Admin Dose 0.5 MG; Start 10/02/18 at 13:30 Levothyroxine Sodium (Synthroid) 50 mcg BEFORE BREAKFAST GTB Last administered on 10/08/18 06:25; Admin Dose 50 MCG; Start 10/03/18 at 07:00 Tramadol HCl (Ultram) 50 mg BID PEG Last administered on 10/08/18 08:59; Admin Dose 50 MG; Start 10/03/18 at 21:00 Potassium Chloride (Potassium Chloride Pwd/Soln) 40 meq DAILY GTB Last administered on 10/08/18 08:58; Admin Dose 40 MEQ; Start 10/04/18 at 18:00 Vancomycin HCl (Vancomycin Oral Syringe) 125 mg Q6 GTB Last administered on 10/08/18 11:56; Admin Dose 125 MG; Start 10/05/18 at 00:00 Famotidine (Pepcid) 20 mg HS GTB Last administered on 10/07/18 22:22; Admin Dose 20 MG; Start 10/04/18 at 21:00 Gentamicin Sulfate (Gentamicin Iv Per Pharmacy) GENTAMICIN PER PHARMACY NOTE XX ; Start 10/05/18 at 16:00 Gentamicin Sulfate 50 ml @ 100 mls/hr Q24H IVPB Last administered on 10/07/18 17:53; Admin Dose 100 MLS/HR; Start 10/05/18 at 18:30 Metoprolol Succinate (Toprol Xl) 25 mg DAILY PO Last administered on 10/08/18 08:59; Admin Dose 25 MG; Start 10/06/18 at 09:30 Amiodarone HCl (Cordarone) 400 mg BID PO Last administered on 10/08/18 08:59; Admin Dose 400 MG; Start 10/07/18 at 10:30 Dextrose 1,000 ml @ 75 mls/hr [id number] IV Last administered on 10/08/18at 10:06; Admin Dose 75 MLS/HR; Start 10/08/18 at 09:30; Stop 10/08/18 at 19:00 Assessment/Plan Hospital Course (Demo Recall) Impression 1. Pseudomonal urinary tract infection. 2. History of brain carcinoma. 3. Ventilator-dependent respiratory failure. 4. Common femoral, superficial vein thrombosis. 5. Continue rate control with amiodarone consider transition to p.o. PLAN : 1. Continue vent support. 2. Antibiotics. 3. Tube feedings. 4. Anticoagulation. 5. DVT and GI prophylaxis. 6. CT brain findings noted. Dale evaluation. DC planning okay from pulmonary standpoint. ELIOT GALEAS MD, [facility] Oct 08, 2018 14:34
--- NOTE | 2018-10-08 15:21 | CONS ---
Assessment/Plan Assessment/Plan Hospital Course (Demo Recall) No acute events overnight Indwelling: Trach PEG [place] Antimicrobials: Gentamicin, oral vancomycin Physical examination: Well-developed chronically ill-appearing elderly man who is in no distress. Head atraumatic normocephalic neck is supple tracheostomy present chest rise symmetrical breath sounds diminished bases. Heart: S1-S2. Abdomen soft bowel sounds present. Assessment: 1. Sepsis 2. C. difficile colitis 3. Urinary tract infection 4. Paroxysmal atrial fibrillation on admission 5. Cardiomyopathy 6. Chronic encephalopathy 7. Right lower extremity DVT Plan: Stable, continue antibiotics Consultation Date/Type/Reason Admit Date/Time Oct 02, 2018 at 12:38 Initial Consult Date 10/06/18 Type of Consult id Requesting Provider: VIRGIE WOLF Date/Time of Note DATE: 10/08/18 TIME: 15:21 Exam/Review of Systems Exam Vitals Vital Signs Date Temp Pulse Resp B/P (MAP) Pulse Ox O2 O2 Flow FiO2 Time Delivery Rate 10/08/18 98.2 94 22 121/61 96 Mechanical 11:43 (81) Ventilator Trach Collar 10/08/18 30 11:31 Intake and Output 10/07/18 10/07/18 10/08/18 1515:00 23:00 07:00 IntakeIntake Total 750 ml 676 ml OutputOutput Total 400 ml 750 ml BalanceBalance 350 ml -74 ml Results Result Diagram: 10/08/18 0808 10/08/18 0808 Results 24hrs Laboratory Tests Test 10/07/18 17:52 10/07/18 19:49 10/08/18 08:08 Gentamicin Level Trough 1.6 Gentamicin Level Peak 5.4 White Blood Count 16.4 #H Red Blood Count 2.94 L Hemoglobin 7.8 L Hematocrit 25.2 L Mean Corpuscular Volume 85.7 Mean Corpuscular Hemoglobin 26.5 L Mean Corpuscular Hemoglobin Concent 31.0 L Red Cell Distribution Width 17.3 H Platelet Count 334 Mean Platelet Volume 9.7 Immature Granulocytes % 0.900 H Neutrophils % 71.3 Lymphocytes % 18.8 Monocytes % 7.1 Eosinophils % 1.5 Basophils % 0.4 Nucleated Red Blood Cells % 0.0 Immature Granulocytes # 0.140 H Neutrophils # 11.7 H Lymphocytes # 3.1 H Monocytes # 1.2 H Eosinophils # 0.3 Basophils # 0.1 Nucleated Red Blood Cells # 0.0 Sodium Level 149 H Potassium Level 3.7 Chloride Level 122 H Carbon Dioxide Level 19 L Anion Gap 8 Blood Urea Nitrogen 10 Creatinine 1.04 Est Glomerular Filtrat Rate mL/min Glucose Level 72 Calcium Level 7.9 L Medications Medication Current Medications IV Flush (NS 3 ml) 3 ml PER PROTOCOL IV ; Start 10/02/18 at 13:30 Hydromorphone HCl (Dilaudid) 0.5 mg Q4H PRN IV .SEVERE PAIN 7-10 Last administered on 10/05/18 12:55; Admin Dose 0.5 MG; Start 10/02/18 at 13:30 Levothyroxine Sodium (Synthroid) 50 mcg BEFORE BREAKFAST GTB Last administered on 10/08/18 06:25; Admin Dose 50 MCG; Start 10/03/18 at 07:00 Tramadol HCl (Ultram) 50 mg BID PEG Last administered on 10/08/18 08:59; Admin Dose 50 MG; Start 10/03/18 at 21:00 Potassium Chloride (Potassium Chloride Pwd/Soln) 40 meq DAILY GTB Last administered on 10/08/18 08:58; Admin Dose 40 MEQ; Start 10/04/18 at 18:00 Vancomycin HCl (Vancomycin Oral Syringe) 125 mg Q6 GTB Last administered on 10/08/18 11:56; Admin Dose 125 MG; Start 10/05/18 at 00:00 Famotidine (Pepcid) 20 mg HS GTB Last administered on 10/07/18 22:22; Admin Dose 20 MG; Start 10/04/18 at 21:00 Gentamicin Sulfate (Gentamicin Iv Per Pharmacy) GENTAMICIN PER PHARMACY NOTE XX ; Start 10/05/18 at 16:00 Gentamicin Sulfate 50 ml @ 100 mls/hr Q24H IVPB Last administered on 10/07/18 17:53; Admin Dose 100 MLS/HR; Start 10/05/18 at 18:30 Metoprolol Succinate (Toprol Xl) 25 mg DAILY PO Last administered on 10/08/18 08:59; Admin Dose 25 MG; Start 10/06/18 at 09:30 Amiodarone HCl (Cordarone) 400 mg BID PO Last administered on 10/08/18 08:59; Admin Dose 400 MG; Start 10/07/18 at 10:30 Dextrose 1,000 ml @ 75 mls/hr [id number] IV Last administered on 10/08/18at 10:06; Admin Dose 75 MLS/HR; Start 10/08/18 at 09:30; Stop 10/08/18 at 19:00 FITO ALEXANDER NP Oct 08, 2018 15:21
[2018-10-08] MEDS: GENTAMICIN 100 MG/50 ML NS IVPB SCH (18:03)
[2018-10-08] MEDS: FAMOTIDINE 20 MG TAB GTB SCH (22:05)
[2018-10-09] VITALS (18 sets, daily range): BP systolic 97–126; BP diastolic 53–68; PULSE 83–96; RESP 16–24
[2018-10-09] MEDS: VANCOMYCIN HCL 250 MG/5ML POSYG GTB SCH ×4 (01:22→17:33)
[2018-10-09] MEDS: LEVOTHYROXINE 50 MCG TAB GTB SCH ×2 (06:00→08:42)
[2018-10-09] MEDS: POTASSIUM CHLORIDE 20 MEQ POWDER FOR ORAL SOLN GTB SCH (08:40)
[2018-10-09] MEDS: AMIODARONE 200 MG TAB PO SCH ×2 (08:41→20:18)
[2018-10-09] MEDS: METOPROLOL (XL) 25 MG TAB PO SCH (08:42)
[2018-10-09] MEDS: traMADol 50 MG TAB PEG SCH ×2 (08:42→20:15)
[2018-10-09] MEDS: BALSAM PERU/CASTOR OIL 60 GM TUBE TOP SCH (08:43)
--- NOTE | 2018-10-09 11:53 | CONS ---
Assessment/Plan Assessment/Plan Hospital Course (Demo Recall) Paroxysmal atrial fibrillation: Now converted on amiodarone. Was on heparin due to DVT but now on hold due to head CT findings DVT: right femoral. On heparin, but head CT with multiple abnormalities. If not an anticoagulation candidate, can consider IVC filter though at that point, should have goals of care discussion with family Cardiomyopathy: EF 35%, ?etiology. Not a candidate for evaluation UTI C diff colitis Sepsis Chronic VDRF Brain tumor Chronic encephalopathy -if family wants aggressive treatment, would need to determine safety of restarting anticoagulation in setting of CT findings (?neuro or neurosurg) -amiodarone 400mg BID x 1 week, then 200mg BID x 1 week, then 200mg daily -metoprolol succinate 25mg as tolerated -antibiotics per ID Consultation Date/Type/Reason Admit Date/Time Oct 02, 2018 at 12:38 Initial Consult Date 10/06/18 Type of Consult Cardiology Requesting Provider: VIRGIE WOLF Date/Time of Note DATE: 10/09/18 TIME: 11:52 24 HR Interval Summary Free Text/Dictation No events Exam/Review of Systems Vital Signs Vitals Vital Signs Date Temp Pulse Resp B/P (MAP) Pulse Ox O2 O2 Flow FiO2 Time Delivery Rate 10/09/18 96.5 86 20 126/68 100 Mechanical 11:48 (87) Ventilator 10/09/18 30 09:36 Intake and Output 10/08/18 10/08/18 10/09/18 1515:00 23:00 07:00 IntakeIntake Total 50 ml 670 ml OutputOutput Total 750 ml 1300 ml BalanceBalance -700 ml -630 ml Exam Constitutional: No alert, No oriented ENMT: other (s/p trach) Respiratory: diminished breath sounds; No clear to auscultation Cardiovascular: regular rate and rhythm, edema (1+); No systolic murmur Gastrointestinal: soft; No distended Neurological: No nl mental status, No nl speech Labs Result Diagram: 10/09/1852610/09/18526 Results 24hrs Laboratory Tests Test 10/09/18 05:27 White Blood Count 11.9 #H Red Blood Count 3.02 L Hemoglobin 8.0 L Hematocrit 26.0 L Mean Corpuscular Volume 86.1 Mean Corpuscular Hemoglobin 26.5 L Mean Corpuscular Hemoglobin Concent 30.8 L Red Cell Distribution Width 17.6 H Platelet Count 316 Mean Platelet Volume 10.0 Immature Granulocytes % 1.000 H Neutrophils % 59.8 Lymphocytes % 27.1 Monocytes % 8.3 Eosinophils % 3.5 Basophils % 0.3 Nucleated Red Blood Cells % 0.0 Immature Granulocytes # 0.120 H Neutrophils # 7.1 Lymphocytes # 3.2 H Monocytes # 1.0 H Eosinophils # 0.4 Basophils # 0.0 Nucleated Red Blood Cells # 0.0 Sodium Level 146 H Potassium Level 4.0 Chloride Level 119 H Carbon Dioxide Level 22 Anion Gap 5 Blood Urea Nitrogen 9 Creatinine 0.98 Est Glomerular Filtrat Rate mL/min Glucose Level 105 Calcium Level 8.0 L Medications Medications Current Medications IV Flush (NS 3 ml) 3 ml PER PROTOCOL IV ; Start 10/02/18 at 13:30 Hydromorphone HCl (Dilaudid) 0.5 mg Q4H PRN IV .SEVERE PAIN 7-10 Last administered on 10/05/18 12:55; Admin Dose 0.5 MG; Start 10/02/18 at 13:30 Levothyroxine Sodium (Synthroid) 50 mcg BEFORE BREAKFAST GTB Last administered on 10/09/18 08:42; Admin Dose 50 MCG; Start 10/03/18 at 07:00 Tramadol HCl (Ultram) 50 mg BID PEG Last administered on 10/09/18 08:42; Admin Dose 50 MG; Start 10/03/18 at 21:00 Potassium Chloride (Potassium Chloride Pwd/Soln) 40 meq DAILY GTB Last administered on 10/09/18 08:40; Admin Dose 40 MEQ; Start 10/04/18 at 18:00 Vancomycin HCl (Vancomycin Oral Syringe) 125 mg Q6 GTB Last administered on 10/09/18 11:51; Admin Dose 125 MG; Start 10/05/18 at 00:00 Famotidine (Pepcid) 20 mg HS GTB Last administered on 10/08/18 22:05; Admin Dose 20 MG; Start 10/04/18 at 21:00 Gentamicin Sulfate (Gentamicin Iv Per Pharmacy) GENTAMICIN PER PHARMACY NOTE XX ; Start 10/05/18 at 16:00 Gentamicin Sulfate 50 ml @ 100 mls/hr Q24H IVPB Last administered on 10/08/18 18:03; Admin Dose 100 MLS/HR; Start 10/05/18 at 18:30 Metoprolol Succinate (Toprol Xl) 25 mg DAILY PO Last administered on 10/09/18at 08:42; Admin Dose 25 MG; Start 10/06/18 at 09:30 Amiodarone HCl (Cordarone) 400 mg BID PO Last administered on 10/09/18at 08:41; Admin Dose 400 MG; Start 10/07/18 at 10:30 FRED BERGER Oct 09, 2018 11:53
--- NOTE | 2018-10-09 14:16 | PN ---
Date/Time of Note Date/Time of Note DATE: 10/09/18 TIME: 14:14 Assessment/Plan VTE Prophylaxis Risk score (from Nsg)>0 risk: 6 SCD applied (from Nsg): Yes Pharmacological prophylaxis: heparin Lines/Catheters IV Catheter Type (from Nrsg): Peripheral IV Urinary Cath still in place: Yes Reason Cath still needed: urinary retention Assessment/Plan Hospital Course Alert, nonverbal EOMI intact Withdraws to pain MV via trach RRR CTAB Soft nt nd warm no edema PEG A/P 82 yo male with reported history of brain neoplasm though details unknown, chronic encephelopahty and respiratory failure on MV via trach with PEG who presented form care home with sepsis. Found to have extensive DVT and C Diff C Diff: - Continue treatment per ID UTI causing sepsis: - Continue antibiotics per ID DVT: - We are holding AC for now given brain tumor Chronic respiratory failure: - Continue MV via trach Brain neoplasm: - Will discuss goals of care Chronic encephelopathy: - Unclear baseline Full code for now though dismal prognosis. Hospice would be approrpiate Result Diagram: 10/09/18 0527 10/09/18 0527 Results 24hrs Laboratory Tests Test 10/09/18 05:27 White Blood Count 11.9 #H Red Blood Count 3.02 L Hemoglobin 8.0 L Hematocrit 26.0 L Mean Corpuscular Volume 86.1 Mean Corpuscular Hemoglobin 26.5 L Mean Corpuscular Hemoglobin Concent 30.8 L Red Cell Distribution Width 17.6 H Platelet Count 316 Mean Platelet Volume 10.0 Immature Granulocytes % 1.000 H Neutrophils % 59.8 Lymphocytes % 27.1 Monocytes % 8.3 Eosinophils % 3.5 Basophils % 0.3 Nucleated Red Blood Cells % 0.0 Immature Granulocytes # 0.120 H Neutrophils # 7.1 Lymphocytes # 3.2 H Monocytes # 1.0 H Eosinophils # 0.4 Basophils # 0.0 Nucleated Red Blood Cells # 0.0 Sodium Level 146 H Potassium Level 4.0 Chloride Level 119 H Carbon Dioxide Level 22 Anion Gap 5 Blood Urea Nitrogen 9 Creatinine 0.98 Est Glomerular Filtrat Rate mL/min Glucose Level 105 Calcium Level 8.0 L Subjective 24 Hr Interval Summary Free Text/Dictation Stable No events Exam/Review of Systems Exam Vitals Vital Signs Date Temp Pulse Resp B/P (MAP) Pulse Ox O2 O2 Flow FiO2 Time Delivery Rate 10/09/18 88 18 98 30 11:55 10/09/18 96.5 126/68 Mechanical 11:48 (87) Ventilator Intake and Output 10/08/18 10/08/18 10/09/18 1515:00 23:00 07:00 IntakeIntake Total 50 ml 670 ml OutputOutput Total 750 ml 1300 ml BalanceBalance -700 ml -630 ml Results Results 24hrs Laboratory Tests Test 10/09/18 05:27 White Blood Count 11.9 #H Red Blood Count 3.02 L Hemoglobin 8.0 L Hematocrit 26.0 L Mean Corpuscular Volume 86.1 Mean Corpuscular Hemoglobin 26.5 L Mean Corpuscular Hemoglobin Concent 30.8 L Red Cell Distribution Width 17.6 H Platelet Count 316 Mean Platelet Volume 10.0 Immature Granulocytes % 1.000 H Neutrophils % 59.8 Lymphocytes % 27.1 Monocytes % 8.3 Eosinophils % 3.5 Basophils % 0.3 Nucleated Red Blood Cells % 0.0 Immature Granulocytes # 0.120 H Neutrophils # 7.1 Lymphocytes # 3.2 H Monocytes # 1.0 H Eosinophils # 0.4 Basophils # 0.0 Nucleated Red Blood Cells # 0.0 Sodium Level 146 H Potassium Level 4.0 Chloride Level 119 H Carbon Dioxide Level 22 Anion Gap 5 Blood Urea Nitrogen 9 Creatinine 0.98 Est Glomerular Filtrat Rate mL/min Glucose Level 105 Calcium Level 8.0 L Medications Medication Current Medications IV Flush (NS 3 ml) 3 ml PER PROTOCOL IV ; Start 10/02/18 at 13:30 Hydromorphone HCl (Dilaudid) 0.5 mg Q4H PRN IV .SEVERE PAIN 7-10 Last adm inistered on 10/05/18at 12:55; Admin Dose 0.5 MG; Start 10/02/18 at 13:30 Levothyroxine Sodium (Synthroid) 50 mcg BEFORE BREAKFAST GTB Last administered on 10/09/18 08:42; Admin Dose 50 MCG; Start 10/03/18 at 07:00 Tramadol HCl (Ultram) 50 mg BID PEG Last administered on 10/09/18 08:42; Admin Dose 50 MG; Start 10/03/18 at 21:00 Potassium Chloride (Potassium Chloride Pwd/Soln) 40 meq DAILY GTB Last administered on 10/09/18 08:40; Admin Dose 40 MEQ; Start 10/04/18 at 18:00 Vancomycin HCl (Vancomycin Oral Syringe) 125 mg Q6 GTB Last administered on 10/09/18at 11:51; Admin Dose 125 MG; Start 10/05/18 at 00:00 Famotidine (Pepcid) 20 mg HS GTB Last administered on 10/08/18at 22:05; Admin Dose 20 MG; Start 10/04/18 at 21:00 Gentamicin Sulfate (Gentamicin Iv Per Pharmacy) GENTAMICIN PER PHARMACY NOTE XX ; Start 10/05/18 at 16:00 Gentamicin Sulfate 50 ml @ 100 mls/hr Q24H IVPB Last administered on 10/08/18 18:03; Admin Dose 100 MLS/HR; Start 10/05/18 at 18:30 Metoprolol Succinate (Toprol Xl) 25 mg DAILY PO Last administered on 10/09/18at 08:42; Admin Dose 25 MG; Start 10/06/18 at 09:30 Amiodarone HCl (Cordarone) 400 mg BID PO Last administered on 10/09/18at 08:41; Admin Dose 400 MG; Start 10/07/18 at 10:30 ADAL STAPLETON MD Oct 09, 2018 14:16
--- NOTE | 2018-10-09 14:53 | CONS ---
Consult Date/Type/Reason Admit Date/Time Oct 02, 2018 at 12:38 Initial Consult Date 10/06/18 Requesting Provider: VIRGIE WOLF Date/Time of Note DATE: 10/09/18 TIME: 14:51 Subjective No events. On vent. Objective Vitals Vital Signs Date Temp Pulse Resp B/P (MAP) Pulse Ox O2 O2 Flow FiO2 Time Delivery Rate 10/09/18 88 18 98 30 11:55 10/09/18 96.5 126/68 Mechanical 11:48 (87) Ventilator Intake and Output 10/08/18 10/08/18 10/09/18 1515:00 23:00 07:00 IntakeIntake Total 50 ml 670 ml OutputOutput Total 750 ml 1300 ml BalanceBalance -700 ml -630 ml Exam NECK: Trach site is clean and intact. CARDIAC: S1, S2. No added sounds or murmurs. CHEST: Diminished air entry bilaterally. ABDOMEN: Soft, nontender. No guarding or rebound. EXTREMITIES: No cyanosis, clubbing or edema. NEUROLOGICAL: Unable to assess. Results/Medications Result Diagram: 10/09/18 0527 10/09/18 0527 Results 24 hrs Laboratory Tests Test 10/09/18 05:27 White Blood Count 11.9 #H Red Blood Count 3.02 L Hemoglobin 8.0 L Hematocrit 26.0 L Mean Corpuscular Volume 86.1 Mean Corpuscular Hemoglobin 26.5 L Mean Corpuscular Hemoglobin Concent 30.8 L Red Cell Distribution Width 17.6 H Platelet Count 316 Mean Platelet Volume 10.0 Immature Granulocytes % 1.000 H Neutrophils % 59.8 Lymphocytes % 27.1 Monocytes % 8.3 Eosinophils % 3.5 Basophils % 0.3 Nucleated Red Blood Cells % 0.0 Immature Granulocytes # 0.120 H Neutrophils # 7.1 Lymphocytes # 3.2 H Monocytes # 1.0 H Eosinophils # 0.4 Basophils # 0.0 Nucleated Red Blood Cells # 0.0 Sodium Level 146 H Potassium Level 4.0 Chloride Level 119 H Carbon Dioxide Level 22 Anion Gap 5 Blood Urea Nitrogen 9 Creatinine 0.98 Est Glomerular Filtrat Rate mL/min Glucose Level 105 Calcium Level 8.0 L Home Meds Reported Medications Tramadol Hcl* (Ultram*) 50 Mg Tablet, 50 MG GTB BID PRN for PAIN MANAGEMENT, TAB 10/02/18 Magnesium Hydroxide* (Milk Of Magnesia*) 400 Mg/5 Ml Oral.susp, 30 ML GTB DAILY, ML 10/02/18 Magaldrate/Simethicone* (Mag-Al Plus Suspension*) 30 Ml Oral.susp, 30 ML GTB Q4 PRN for GASTROINTESTINAL UPSET, ML 10/02/18 Ondansetron Hcl* (Zofran*) 4 Mg Tablet, 4 MG GTB Q6H PRN for NAUSEA AND OR VOMITING, TAB 10/02/18 Pantoprazole Sodium (Protonix) 40 Mg Granpkt.dr, 40 MG GTB DAILY MIX CONTENTS WITH APPLE SAUCE THEN FLUSH WITH 30ML APPLE JUICE 10/02/18 Levothyroxine Sodium* (Levoxyl*) 50 Mcg Tablet, 50 MCG GTB BEFORE BREAKFAST, #30 TAB 10/02/18 Polyvinyl Alcohol (Tears Again) 15 Ml Drops, 1 DRP BOTH EYES TID, BOTTLE 10/02/18 Metoprolol Tartrate* (Lopressor*) 25 Mg Tab, 25 MG GTB Q8, #60 TAB HOLD FOR SBP <110 OR HR<60 10/02/18 Atorvastatin* (Atorvastatin*) 40 Mg Tablet, 40 MG GTB QHS, #30 TAB 10/02/18 Aspirin* (Aspirin*) 325 Mg Tablet, 325 MG GTB DAILY, TAB 10/02/18 Lactobacillus Acidophilus/Pect (Acidophilus-Pectin Capsule) 1 Each Capsule, 1 EACH GTB DAILY, CAP 10/02/18 Acetaminophen* (Acetaminophen*) 650 Mg Tablet, 650 MG GTB Q4 PRN for MILD PAIN LEVEL 1-3, #30 TAB FOR FEVER AND TRACH CHANGE 10/02/18 Acetaminophen* (Acetaminophen*) 500 MG Extra Strength Tablet, 1000 MG GTB Q4 PRN for MODERATE PAIN LEVEL 4-6, TAB 10/02/18 Zinc Sulfate* (Zinc Sulfate*) 220 Mg Cap, 220 MG GTB DAILY, CAP 10/02/18 Ascorbic Acid* (Vitamin C*) 500 Mg Capsule.sa, 500 MG GTB DAILY, CAP 10/02/18 Multivitamin with Minerals (Daily Vitamin Formula-Minerals) 1 Each Tablet, 1 EACH GTB DAILY, TAB 10/02/18 Amino Acids/Protein Hydrolys (Pro-Stat Awc Liquid) 30 Ml Liquid, 30 ML GTB DAILY SUGAR FREE 10/02/18 Na Phos,M-B/Na Phos,Di-Ba (ENEMA [id number]) 133 Ml Enema, 133 ML RC EVERY 2 DAYS PRN for CONSTIPATION, ENEMA 10/02/18 Bisacodyl (Dulcolax) 10 Mg Supp.rect, 10 MG RC DAILY PRN for CONSTIPATION, SUPP.RECT 10/02/18 Docusate Sodium* (Colace*) 100 Mg Capsule, 100 MG GTB BID, #60 CAP 10/02/18 Medications Current Medications IV Flush (NS 3 ml) 3 ml PER PROTOCOL IV ; Start 10/02/18 at 13:30 Hydromorphone HCl (Dilaudid) 0.5 mg Q4H PRN IV .SEVERE PAIN 7-10 Last administered on 10/05/18 12:55; Admin Dose 0.5 MG; Start 10/02/18 at 13:30 Levothyroxine Sodium (Synthroid) 50 mcg BEFORE BREAKFAST GTB Last administered on 10/09/18 08:42; Admin Dose 50 MCG; Start 10/03/18 at 07:00 Tramadol HCl (Ultram) 50 mg BID PEG Last administered on 10/09/18 08:42; Admin Dose 50 MG; Start 10/03/18 at 21:00 Potassium Chloride (Potassium Chloride Pwd/Soln) 40 meq DAILY GTB Last adminis tered on 10/09/18 08:40; Admin Dose 40 MEQ; Start 10/04/18 at 18:00 Vancomycin HCl (Vancomycin Oral Syringe) 125 mg Q6 GTB Last administered on 10/09/18 11:51; Admin Dose 125 MG; Start 10/05/18 at 00:00 Famotidine (Pepcid) 20 mg HS GTB Last administered on 10/08/18 22:05; Admin Dose 20 MG; Start 10/04/18 at 21:00 Gentamicin Sulfate (Gentamicin Iv Per Pharmacy) GENTAMICIN PER PHARMACY NOTE XX ; Start 10/05/18 at 16:00 Gentamicin Sulfate 50 ml @ 100 mls/hr Q24H IVPB Last administered on 10/08/18 18:03; Admin Dose 100 MLS/HR; Start 10/05/18 at 18:30 Metoprolol Succinate (Toprol Xl) 25 mg DAILY PO Last administered on 10/09/18 08:42; Admin Dose 25 MG; Start 10/06/18 at 09:30 Amiodarone HCl (Cordarone) 400 mg BID PO Last administered on 10/09/18at 08:41; Admin Dose 400 MG; Start 10/07/18 at 10:30 Assessment/Plan Assessment/Plan (Daily) IMP: 1. Pseudomonal urinary tract infection. 2. History of brain carcinoma. 3. Ventilator-dependent respiratory failure. 4. Common femoral, superficial vein thrombosis. 5. Anemia 6. C.Diff RECS: 1. Continue vent support. 2. Antibiotics per ID 3. Tube feedings. 4. TF/Free H20 MIKAEL BLISS MD Oct 09, 2018 14:53
--- NOTE | 2018-10-09 17:11 | CONS ---
Consultation Date/Type/Reason Admit Date/Time Oct 02, 2018 at 12:38 Initial Consult Date SUBJECTIVE: Patient is afebrile. Trach to Vent. No acute events overnight VS: stable T: 97.7 LABS: reviewed. WBC- 11.9 --Improving Indwelling: Trach PEG Mcintyre Antimicrobials: Gentamicin, oral vancomycin Physical examination: GEN: Well-developed chronically ill-appearing elderly man, who is in no distress. HENT: Head atraumatic normocephalic; neck is supple tracheostomy present PULM: chest rise symmetrical breath sounds diminished bases. Heart: S1-S2. Abdomen: soft, bowel sounds present. Assessment: 1. Sepsis 2. C. difficile colitis 3. Urinary tract infection 4. Paroxysmal atrial fibrillation on admission 5. Cardiomyopathy 6. Chronic encephalopathy 7. Right lower extremity DVT Plan: Pt is stable. WBC is improving, no fevers. Continue current antibiotics. Requesting Provider: VIRGIE WOLF Date/Time of Note DATE: 10/09/18 TIME: 17:09 Exam/Review of Systems Exam Vitals Vital Signs Date Temp Pulse Resp B/P (MAP) Pulse Ox O2 O2 Flow FiO2 Time Delivery Rate 10/09/18 97.7 93 20 115/57 100 Mechanical 15:48 (76) Ventilator 10/09/18 30 15:47 Intake and Output 10/08/18 10/08/18 10/09/18 1515:00 23:00 07:00 IntakeIntake Total 50 ml 670 ml OutputOutput Total 750 ml 1300 ml BalanceBalance -700 ml -630 ml Results Result Diagram: 10/09/18 0527 10/09/18 0527 Results 24hrs Laboratory Tests Test 10/09/18 05:27 White Blood Count 11.9 #H Red Blood Count 3.02 L Hemoglobin 8.0 L Hematocrit 26.0 L Mean Corpuscular Volume 86.1 Mean Corpuscular Hemoglobin 26.5 L Mean Corpuscular Hemoglobin Concent 30.8 L Red Cell Distribution Width 17.6 H Platelet Count 316 Mean Platelet Volume 10.0 Immature Granulocytes % 1.000 H Neutrophils % 59.8 Lymphocytes % 27.1 Monocytes % 8.3 Eosinophils % 3.5 Basophils % 0.3 Nucleated Red Blood Cells % 0.0 Immature Granulocytes # 0.120 H Neutrophils # 7.1 Lymphocytes # 3.2 H Monocytes # 1.0 H Eosinophils # 0.4 Basophils # 0.0 Nucleated Red Blood Cells # 0.0 Sodium Level 146 H Potassium Level 4.0 Chloride Level 119 H Carbon Dioxide Level 22 Anion Gap 5 Blood Urea Nitrogen 9 Creatinine 0.98 Est Glomerular Filtrat Rate mL/min Glucose Level 105 Calcium Level 8.0 L Medications Medication Current Medications IV Flush (NS 3 ml) 3 ml PER PROTOCOL IV ; Start 10/02/18 at 13:30 Hydromorphone HCl (Dilaudid) 0.5 mg Q4H PRN IV .SEVERE PAIN 7-10 Last administered on 10/05/18 12:55; Admin Dose 0.5 MG; Start 10/02/18 at 13:30 Levothyroxine Sodium (Synthroid) 50 mcg BEFORE BREAKFAST GTB Last administered on 10/09/18 08:42; Admin Dose 50 MCG; Start 10/03/18 at 07:00 Tramadol HCl (Ultram) 50 mg BID PEG Last administered on 10/09/18 08:42; Admin Dose 50 MG; Start 10/03/18 at 21:00 Potassium Chloride (Potassium Chloride Pwd/Soln) 40 meq DAILY GTB Last administered on 10/09/18 08:40; Admin Dose 40 MEQ; Start 10/04/18 at 18:00 Vancomycin HCl (Vancomycin Oral Syringe) 125 mg Q6 GTB Last administered on 10/09/18 11:51; Admin Dose 125 MG; Start 10/05/18 at 00:00 Famotidine (Pepcid) 20 mg HS GTB Last administered on 10/08/18 22:05; Admin Dose 20 MG; Start 10/04/18 at 21:00 Gentamicin Sulfate (Gentamicin Iv Per Pharmacy) GENTAMICIN PER PHARMACY NOTE XX ; Start 10/05/18 at 16:00 Gentamicin Sulfate 50 ml @ 100 mls/hr Q24H IVPB Last administered on 10/08/18 18:03; Admin Dose 100 MLS/HR; Start 10/05/18 at 18:30 Metoprolol Succinate (Toprol Xl) 25 mg DAILY PO Last administered on 10/09/18 08:42; Admin Dose 25 MG; Start 10/06/18 at 09:30 Amiodarone HCl (Cordarone) 400 mg BID PO Last administered on 10/09/18 08:41; Admin Dose 400 MG; Start 10/07/18 at 10:30 TOBY BOWIE Oct 09, 2018 17:11
[2018-10-09] MEDS: GENTAMICIN 100 MG/50 ML NS IVPB SCH (17:33)
[2018-10-09] MEDS: FAMOTIDINE 20 MG TAB GTB SCH (20:15)
[2018-10-10] VITALS (19 sets, daily range): BP systolic 102–125; BP diastolic 56–76; PULSE 81–100; RESP 2–22
[2018-10-10] MEDS: VANCOMYCIN HCL 250 MG/5ML POSYG GTB SCH ×4 (00:02→17:30)
[2018-10-10] MEDS: AMIODARONE 200 MG TAB PO SCH ×2 (08:21→20:21)
[2018-10-10] MEDS: LEVOTHYROXINE 50 MCG TAB GTB SCH (08:21)
[2018-10-10] MEDS: POTASSIUM CHLORIDE 20 MEQ POWDER FOR ORAL SOLN GTB SCH (08:21)
[2018-10-10] MEDS: traMADol 50 MG TAB PEG SCH ×2 (08:22→20:16)
[2018-10-10] MEDS: METOPROLOL (XL) 25 MG TAB PO SCH (08:22)
[2018-10-10] MEDS: BALSAM PERU/CASTOR OIL 60 GM TUBE TOP SCH (08:23)
--- NOTE | 2018-10-10 12:32 | CONS ---
Consultation Date/Type/Reason Admit Date/Time Oct 02, 2018 at 12:38 Initial Consult Date SUBJECTIVE: Patient is afebrile. Trach to Vent. No acute events overnight VS: stable T: 98.4 LABS: reviewed. WBC- 10.8 --Improving Indwelling: Trach PEG Mcintyre Antimicrobials: Gentamicin, oral vancomycin Physical examination: GEN: Well-developed chronically ill-appearing elderly man, who is in no distress. HENT: Head atraumatic normocephalic; neck is supple tracheostomy present PULM: chest rise symmetrical breath sounds diminished bases. Heart: S1-S2. Abdomen: soft, bowel sounds present. Assessment: 1. Sepsis 2. C. difficile colitis 3. Urinary tract infection 4. Paroxysmal atrial fibrillation on admission 5. Cardiomyopathy 6. Chronic encephalopathy 7. Right lower extremity DVT Plan: Pt is stable. WBC is improving, no fevers. Continue current antibiotics. Requesting Provider: VIRGIE WOLF Date/Time of Note DATE: 10/10/18 TIME: 12:32 Exam/Review of Systems Exam Vitals Vital Signs Date Temp Pulse Resp B/P (MAP) Pulse Ox O2 O2 Flow FiO2 Time Delivery Rate 10/10/18 98.4 82 20 102/56 98 Mechanical 11:47 (71) Ventilator 10/10/18 30 10:50 Intake and Output 10/09/18 10/09/18 10/10/18 1515:00 23:00 07:00 IntakeIntake Total 50 ml 690 ml OutputOutput Total 1350 ml 1400 ml BalanceBalance -1300 ml -710 ml Results Result Diagram: 10/10/18 0536 10/10/18 0536 Results 24hrs Laboratory Tests Test 10/10/18 05:36 White Blood Count 10.8 Red Blood Count 2.93 L Hemoglobin 7.8 L Hematocrit 25.4 L Mean Corpuscular Volume 86.7 Mean Corpuscular Hemoglobin 26.6 L Mean Corpuscular Hemoglobin Concent 30.7 L Red Cell Distribution Width 17.9 H Platelet Count 284 Mean Platelet Volume 10.2 Immature Granulocytes % 1.500 H Neutrophils % 58.8 Lymphocytes % 27.6 Monocytes % 8.4 Eosinophils % 3.3 Basophils % 0.4 Nucleated Red Blood Cells % 0.0 Immature Granulocytes # 0.160 H Neutrophils # 6.3 Lymphocytes # 3.0 H Monocytes # 0.9 Eosinophils # 0.4 Basophils # 0.0 Nucleated Red Blood Cells # 0.0 Sodium Level 146 H Potassium Level 4.0 Chloride Level 117 H Carbon Dioxide Level 22 Anion Gap 7 Blood Urea Nitrogen 9 Creatinine 1.04 Est Glomerular Filtrat Rate mL/min Glucose Level 94 Calcium Level 8.2 L Medications Medication Current Medications IV Flush (NS 3 ml) 3 ml PER PROTOCOL IV ; Start 10/02/18 at 13:30 Hydromorphone HCl (Dilaudid) 0.5 mg Q4H PRN IV .SEVERE PAIN 7-10 Last administered on 10/05/18 12:55; Admin Dose 0.5 MG; Start 10/02/18 at 13:30 Levothyroxine Sodium (Synthroid) 50 mcg BEFORE BREAKFAST GTB Last administered on 10/10/18 08:21; Admin Dose 50 MCG; Start 10/03/18 at 07:00 Tramadol HCl (Ultram) 50 mg BID PEG Last administered on 10/10/18 08:22; Admin Dose 50 MG; Start 10/03/18 at 21:00 Potassium Chloride (Potassium Chloride Pwd/Soln) 40 meq DAILY GTB Last administered on 10/10/18 08:21; Admin Dose 40 MEQ; Start 10/04/18 at 18:00 Vancomycin HCl (Vancomycin Oral Syringe) 125 mg Q6 GTB Last administered on 09/13 05:49; Admin Dose 125 MG; Start 10/05/18 at 00:00 Famotidine (Pepcid) 20 mg HS GTB Last administered on 10/09/18 20:15; Admin Dose 20 MG; Start 10/04/18 at 21:00 Gentamicin Sulfate (Gentamicin Iv Per Pharmacy) GENTAMICIN PER PHARMACY NOTE XX ; Start 10/05/18 at 16:00 Gentamicin Sulfate 50 ml @ 100 mls/hr Q24H IVPB Last administered on 10/09/18 17:33; Admin Dose 100 MLS/HR; Start 10/05/18 at 18:30 Metoprolol Succinate (Toprol Xl) 25 mg DAILY PO Last administered on 10/10/18 08:22; Admin Dose 25 MG; Start 10/06/18 at 09:30 Amiodarone HCl (Cordarone) 400 mg BID PO Last administered on 10/10/18 08:21; Admin Dose 400 MG; Start 10/07/18 at 10:30 TOBY BOWIE Oct 10, 2018 12:32
--- NOTE | 2018-10-10 14:12 | PN ---
Date/Time of Note Date/Time of Note DATE: 10/10/18 TIME: 14:12 Assessment/Plan VTE Prophylaxis Risk score (from Nsg)>0 risk: 6 SCD applied (from Nsg): Yes Pharmacological prophylaxis: heparin Lines/Catheters IV Catheter Type (from Nrsg): Saline Lock Urinary Cath still in place: Yes Reason Cath still needed: urinary retention Assessment/Plan Hospital Course Alert, nonverbal EOMI intact Withdraws to pain MV via trach RRR CTAB Soft nt nd warm no edema PEG A/P 82 yo male with reported history of brain neoplasm though details unknown, chronic encephelopahty and respiratory failure on MV via trach with PEG who presented form detention with sepsis. Found to have extensive DVT and C Diff C Diff: - Continue treatment per ID UTI causing sepsis: - Continue antibiotics per ID DVT: - We are holding AC for now given brain tumor Chronic respiratory failure: - Continue MV via trach Brain neoplasm: - Will discuss goals of care Chronic encephelopathy: - Unclear baseline Full code for now though dismal prognosis. Hospice would be approrpiate Result Diagram: 10/10/18 0536 10/10/18 0536 Results 24hrs Laboratory Tests Test 10/10/18 05:36 White Blood Count 10.8 Red Blood Count 2.93 L Hemoglobin 7.8 L Hematocrit 25.4 L Mean Corpuscular Volume 86.7 Mean Corpuscular Hemoglobin 26.6 L Mean Corpuscular Hemoglobin Concent 30.7 L Red Cell Distribution Width 17.9 H Platelet Count 284 Mean Platelet Volume 10.2 Immature Granulocytes % 1.500 H Neutrophils % 58.8 Lymphocytes % 27.6 Monocytes % 8.4 Eosinophils % 3.3 Basophils % 0.4 Nucleated Red Blood Cells % 0.0 Immature Granulocytes # 0.160 H Neutrophils # 6.3 Lymphocytes # 3.0 H Monocytes # 0.9 Eosinophils # 0.4 Basophils # 0.0 Nucleated Red Blood Cells # 0.0 Sodium Level 146 H Potassium Level 4.0 Chloride Level 117 H Carbon Dioxide Level 22 Anion Gap 7 Blood Urea Nitrogen 9 Creatinine 1.04 Est Glomerular Filtrat Rate mL/min Glucose Level 94 Calcium Level 8.2 L Subjective 24 Hr Interval Summary Free Text/Dictation No change to clinical status Stable No events Exam/Review of Systems Exam Vitals Vital Signs Date Temp Pulse Resp B/P (MAP) Pulse Ox O2 O2 Flow FiO2 Time Delivery Rate 10/10/18 98.4 82 20 102/56 98 Mechanical 11:47 (71) Ventilator 10/10/18 30 10:50 Intake and Output 10/09/18 10/09/18 10/10/18 1515:00 23:00 07:00 IntakeIntake Total 50 ml 690 ml OutputOutput Total 1350 ml 1400 ml BalanceBalance -1300 ml -710 ml Results Results 24hrs Laboratory Tests Test 10/10/18 05:36 White Blood Count 10.8 Red Blood Count 2.93 L Hemoglobin 7.8 L Hematocrit 25.4 L Mean Corpuscular Volume 86.7 Mean Corpuscular Hemoglobin 26.6 L Mean Corpuscular Hemoglobin Concent 30.7 L Red Cell Distribution Width 17.9 H Platelet Count 284 Mean Platelet Volume 10.2 Immature Granulocytes % 1.500 H Neutrophils % 58.8 Lymphocytes % 27.6 Monocytes % 8.4 Eosinophils % 3.3 Basophils % 0.4 Nucleated Red Blood Cells % 0.0 Immature Granulocytes # 0.160 H Neutrophils # 6.3 Lymphocytes # 3.0 H Monocytes # 0.9 Eosinophils # 0.4 Basophils # 0.0 Nucleated Red Blood Cells # 0.0 Sodium Level 146 H Potassium Level 4.0 Chloride Level 117 H Carbon Dioxide Level 22 Anion Gap 7 Blood Urea Nitrogen 9 Creatinine 1.04 Est Glomerular Filtrat Rate mL/min Glucose Level 94 Calcium Level 8.2 L Medications Medication Current Medications IV Flush (NS 3 ml) 3 ml PER PROTOCOL IV ; Start 10/02/18 at 13:30 Hydromorphone HCl (Dilaudid) 0.5 mg Q4H PRN IV .SEVERE PAIN 7-10 Last administered on 10/05/18at 12:55; Admin Dose 0.5 MG; Start 10/02/18 at 13:30 Levothyroxine Sodium (Synthroid) 50 mcg BEFORE BREAKFAST GTB Last administered on 10/10/18 08:21; Admin Dose 50 MCG; Start 10/03/18 at 07:00 Tramadol HCl (Ultram) 50 mg BID PEG Last administered on 10/10/18 08:22; Admin Dose 50 MG; Start 10/03/18 at 21:00 Potassium Chloride (Potassium Chloride Pwd/Soln) 40 meq DAILY GTB Last administered on 10/10/18 08:21; Admin Dose 40 MEQ; Start 10/04/18 at 18:00 Vancomycin HCl (Vancomycin Oral Syringe) 125 mg Q6 GTB Last administered on 10/10/18 12:42; Admin Dose 125 MG; Start 10/05/18 at 00:00 Famotidine (Pepcid) 20 mg HS GTB Last administered on 10/09/18 20:15; Admin Dose 20 MG; Start 10/04/18 at 21:00 Gentamicin Sulfate (Gentamicin Iv Per Pharmacy) GENTAMICIN PER PHARMACY NOTE XX ; Start 10/05/18 at 16:00 Gentamicin Sulfate 50 ml @ 100 mls/hr Q24H IVPB Last administered on 10/09/18 17:33; Admin Dose 100 MLS/HR; Start 10/05/18 at 18:30 Metoprolol Succinate (Toprol Xl) 25 mg DAILY PO Last administered on 10/10/18 08:22; Admin Dose 25 MG; Start 10/06/18 at 09:30 Amiodarone HCl (Cordarone) 400 mg BID PO Last administered on 10/10/18 08:21; Admin Dose 400 MG; Start 10/07/18 at 10:30 ADAL STAPLETON MD Oct 10, 2018 14:12
--- NOTE | 2018-10-10 17:04 | CONS ---
Assessment/Plan Assessment/Plan Hospital Course (Demo Recall) Paroxysmal atrial fibrillation: Now converted on amiodarone. Was on heparin due to DVT but now on hold due to head CT findings DVT: right femoral. On heparin, but head CT with multiple abnormalities. If not an anticoagulation candidate, can consider IVC filter though at that point, should have goals of care discussion with family Cardiomyopathy: EF 35%, ?etiology. Not a candidate for evaluation UTI C diff colitis Sepsis Chronic VDRF Brain tumor Chronic encephalopathy -if family wants aggressive treatment, would need to determine safety of restarting anticoagulation in setting of CT findings (?neuro or neurosurg) -amiodarone 400mg BID x 1 week, then 200mg BID x 1 week, then 200mg daily -metoprolol succinate 25mg as tolerated -antibiotics per ID -otherwise ok for placement Consultation Date/Type/Reason Admit Date/Time Oct 02, 2018 at 12:38 Initial Consult Date 10/06/18 Type of Consult Cardiology Requesting Provider: VIRGIE WOLF Date/Time of Note DATE: 10/10/18 TIME: 17:04 24 HR Interval Summary Free Text/Dictation No changes Exam/Review of Systems Vital Signs Vitals Vital Signs Date Temp Pulse Resp B/P (MAP) Pulse Ox O2 O2 Flow FiO2 Time Delivery Rate 10/10/18 98.6 81 16 114/57 100 Mechanical 15:51 (76) Ventilator 10/10/18 30 10:50 Intake and Output 10/09/18 10/09/18 10/10/18 1515:00 23:00 07:00 IntakeIntake Total 50 ml 690 ml OutputOutput Total 1350 ml 1400 ml BalanceBalance -1300 ml -710 ml Exam Constitutional: No alert, No oriented Neck: No jvd (unabel to assess) Respiratory: diminished breath sounds; No clear to auscultation Cardiovascular: regular rate and rhythm, edema (1+) Gastrointestinal: soft; No distended Neurological: No nl mental status, No nl speech Labs Result Diagram: 10/10/18 0536 10/10/18 0536 Results 24hrs Laboratory Tests Test 10/10/18 05:36 White Blood Count 10.8 Red Blood Count 2.93 L Hemoglobin 7.8 L Hematocrit 25.4 L Mean Corpuscular Volume 86.7 Mean Corpuscular Hemoglobin 26.6 L Mean Corpuscular Hemoglobin Concent 30.7 L Red Cell Distribution Width 17.9 H Platelet Count 284 Mean Platelet Volume 10.2 Immature Granulocytes % 1.500 H Neutrophils % 58.8 Lymphocytes % 27.6 Monocytes % 8.4 Eosinophils % 3.3 Basophils % 0.4 Nucleated Red Blood Cells % 0.0 Immature Granulocytes # 0.160 H Neutrophils # 6.3 Lymphocytes # 3.0 H Monocytes # 0.9 Eosinophils # 0.4 Basophils # 0.0 Nucleated Red Blood Cells # 0.0 Sodium Level 146 H Potassium Level 4.0 Chloride Level 117 H Carbon Dioxide Level 22 Anion Gap 7 Blood Urea Nitrogen 9 Creatinine 1.04 Est Glomerular Filtrat Rate mL/min Glucose Level 94 Calcium Level 8.2 L Medications Medications Current Medications IV Flush (NS 3 ml) 3 ml PER PROTOCOL IV ; Start 10/02/18 at 13:30 Hydromorphone HCl (Dilaudid) 0.5 mg Q4H PRN IV .SEVERE PAIN 7-10 Last administered on 10/05/18 12:55; Admin Dose 0.5 MG; Start 10/02/18 at 13:30 Levothyroxine Sodium (Synthroid) 50 mcg BEFORE BREAKFAST GTB Last administered on 10/10/18 08:21; Admin Dose 50 MCG; Start 10/03/18 at 07:00 Tramadol HCl (Ultram) 50 mg BID PEG Last administered on 10/10/18 08:22; Admin Dose 50 MG; Start 10/03/18 at 21:00 Potassium Chloride (Potassium Chloride Pwd/Soln) 40 meq DAILY GTB Last administered on 10/10/18 08:21; Admin Dose 40 MEQ; Start 10/04/18 at 18:00 Vancomycin HCl (Vancomycin Oral Syringe) 125 mg Q6 GTB Last administered on 10/10/18 12:42; Admin Dose 125 MG; Start 10/05/18 at 00:00 Famotidine (Pepcid) 20 mg HS GTB Last administered on 10/09/18 20:15; Admin Dose 20 MG; Start 10/04/18 at 21:00 Gentamicin Sulfate (Gentamicin Iv Per Pharmacy) GENTAMICIN PER PHARMACY NOTE XX ; Start 10/05/18 at 16:00 Gentamicin Sulfate 50 ml @ 100 mls/hr Q24H IVPB Last administered on 10/09/18 17:33; Admin Dose 100 MLS/HR; Start 10/05/18 at 18:30 Metoprolol Succinate (Toprol Xl) 25 mg DAILY PO Last administered on 10/10/18at 08:22; Admin Dose 25 MG; Start 10/06/18 at 09:30 Amiodarone HCl (Cordarone) 400 mg BID PO Last administered on 10/10/18at 08:21; Admin Dose 400 MG; Start 10/07/18 at 10:30 FRED BERGER Oct 10, 2018 17:04
--- NOTE | 2018-10-10 17:12 | CONS ---
Consult Date/Type/Reason Admit Date/Time Oct 02, 2018 at 12:38 Initial Consult Date 10/06/18 Requesting Provider: VIRGIE WOLF Date/Time of Note DATE: 10/10/18 TIME: 17:10 Subjective Family at bedside. No events on the ventilator. Objective Vitals Vital Signs Date Temp Pulse Resp B/P (MAP) Pulse Ox O2 O2 Flow FiO2 Time Delivery Rate 10/10/18 98.6 81 16 114/57 100 Mechanical 15:51 (76) Ventilator 10/10/18 30 10:50 Intake and Output 10/09/18 10/09/18 10/10/18 1515:00 23:00 07:00 IntakeIntake Total 50 ml 690 ml OutputOutput Total 1350 ml 1400 ml BalanceBalance -1300 ml -710 ml Exam HEENT: Neck supple; no JVD; no LAD: + trach CVS: Irreg, S1 and S2 CHEST: Coarse BS b/l ABD: Soft, NT, + BS EXT: No c/c/e Results/Medications Result Diagram: 10/10/18 0536 10/10/18 0536 Results 24 hrs Laboratory Tests Test 10/10/18 05:36 White Blood Count 10.8 Red Blood Count 2.93 L Hemoglobin 7.8 L Hematocrit 25.4 L Mean Corpuscular Volume 86.7 Mean Corpuscular Hemoglobin 26.6 L Mean Corpuscular Hemoglobin Concent 30.7 L Red Cell Distribution Width 17.9 H Platelet Count 284 Mean Platelet Volume 10.2 Immature Granulocytes % 1.500 H Neutrophils % 58.8 Lymphocytes % 27.6 Monocytes % 8.4 Eosinophils % 3.3 Basophils % 0.4 Nucleated Red Blood Cells % 0.0 Immature Granulocytes # 0.160 H Neutrophils # 6.3 Lymphocytes # 3.0 H Monocytes # 0.9 Eosinophils # 0.4 Basophils # 0.0 Nucleated Red Blood Cells # 0.0 Sodium Level 146 H Potassium Level 4.0 Chloride Level 117 H Carbon Dioxide Level 22 Anion Gap 7 Blood Urea Nitrogen 9 Creatinine 1.04 Est Glomerular Filtrat Rate mL/min Glucose Level 94 Calcium Level 8.2 L Home Meds Reported Medications Tramadol Hcl* (Ultram*) 50 Mg Tablet, 50 MG GTB BID PRN for PAIN MANAGEMENT, TAB 10/02/18 Magnesium Hydroxide* (Milk Of Magnesia*) 400 Mg/5 Ml Oral.susp, 30 ML GTB DAILY, ML 10/02/18 Magaldrate/Simethicone* (Mag-Al Plus Suspension*) 30 Ml Oral.susp, 30 ML GTB Q4 PRN for GASTROINTESTINAL UPSET, ML 10/02/18 Ondansetron Hcl* (Zofran*) 4 Mg Tablet, 4 MG GTB Q6H PRN for NAUSEA AND OR VOMITING, TAB 10/02/18 Pantoprazole Sodium (Protonix) 40 Mg Granpkt.dr, 40 MG GTB DAILY MIX CONTENTS WITH APPLE SAUCE THEN FLUSH WITH 30ML APPLE JUICE 10/02/18 Levothyroxine Sodium* (Levoxyl*) 50 Mcg Tablet, 50 MCG GTB BEFORE BREAKFAST, #30 TAB 10/02/18 Polyvinyl Alcohol (Tears Again) 15 Ml Drops, 1 DRP BOTH EYES TID, BOTTLE 10/02/18 Metoprolol Tartrate* (Lopressor*) 25 Mg Tab, 25 MG GTB Q8, #60 TAB HOLD FOR SBP <110 OR HR<60 10/02/18 Atorvastatin* (Atorvastatin*) 40 Mg Tablet, 40 MG GTB QHS, #30 TAB 10/02/18 Aspirin* (Aspirin*) 325 Mg Tablet, 325 MG GTB DAILY, TAB 10/02/18 Lactobacillus Acidophilus/Pect (Acidophilus-Pectin Capsule) 1 Each Capsule, 1 EACH GTB DAILY, CAP 10/02/18 Acetaminophen* (Acetaminophen*) 650 Mg Tablet, 650 MG GTB Q4 PRN for MILD PAIN LEVEL 1-3, #30 TAB FOR FEVER AND TRACH CHANGE 10/02/18 Acetaminophen* (Acetaminophen*) 500 MG Extra Strength Tablet, 1000 MG GTB Q4 PRN for MODERATE PAIN LEVEL 4-6, TAB 10/02/18 Zinc Sulfate* (Zinc Sulfate*) 220 Mg Cap, 220 MG GTB DAILY, CAP 10/02/18 Ascorbic Acid* (Vitamin C*) 500 Mg Capsule.sa, 500 MG GTB DAILY, CAP 10/02/18 Multivitamin with Minerals (Daily Vitamin Formula-Minerals) 1 Each Tablet, 1 EACH GTB DAILY, TAB 10/02/18 Amino Acids/Protein Hydrolys (Pro-Stat Awc Liquid) 30 Ml Liquid, 30 ML GTB DAILY SUGAR FREE 10/02/18 Na Phos,M-B/Na Phos,Di-Ba (ENEMA [id number]) 133 Ml Enema, 133 ML RC EVERY 2 DAYS PRN for CONSTIPATION, ENEMA 10/02/18 Bisacodyl (Dulcolax) 10 Mg Supp.rect, 10 MG RC DAILY PRN for CONSTIPATION, SUPP.RECT 10/02/18 Docusate Sodium* (Colace*) 100 Mg Capsule, 100 MG GTB BID, #60 CAP 10/02/18 Medications Current Medications IV Flush (NS 3 ml) 3 ml PER PROTOCOL IV ; Start 10/02/18 at 13:30 Hydromorphone HCl (Dilaudid) 0.5 mg Q4H PRN IV .SEVERE PAIN 7-10 Last administered on 10/05/18 12:55; Admin Dose 0.5 MG; Start 10/02/18 at 13:30 Levothyroxine Sodium (Synthroid) 50 mcg BEFORE BREAKFAST GTB Last administered on 10/10/18 08:21; Admin Dose 50 MCG; Start 10/03/18 at 07:00 Tramadol HCl (Ultram) 50 mg BID PEG Last administered on 10/10/18 08:22; Admin Dose 50 MG; Start 10/03/18 at 21:00 Potassium Chloride (Potassium Chloride Pwd/Soln) 40 meq DAILY GTB Last administered on 10/10/18 08:21; Admin Dose 40 MEQ; Start 10/04/18 at 18:00 Vancomycin HCl (Vancomycin Oral Syringe) 125 mg Q6 GTB Last administered on 10/10/18 12:42; Admin Dose 125 MG; Start 10/05/18 at 00:00 Famotidine (Pepcid) 20 mg HS GTB Last administered on 10/09/18 20:15; Admin Dose 20 MG; Start 10/04/18 at 21:00 Gentamicin Sulfate (Gentamicin Iv Per Pharmacy) GENTAMICIN PER PHARMACY NOTE XX ; Start 10/05/18 at 16:00 Gentamicin Sulfate 50 ml @ 100 mls/hr Q24H IVPB Last administered on 10/09/18 17:33; Admin Dose 100 MLS/HR; Start 10/05/18 at 18:30 Metoprolol Succinate (Toprol Xl) 25 mg DAILY PO Last administered on 10/10/18 08:22; Admin Dose 25 MG; Start 10/06/18 at 09:30 Amiodarone HCl (Cordarone) 400 mg BID PO Last administered on 10/10/18at 08:21; Admin Dose 400 MG; Start 10/07/18 at 10:30 Assessment/Plan Assessment/Plan (Daily) IMP: 1. Pseudomonal urinary tract infection. 2. History of brain carcinoma. 3. Ventilator-dependent respiratory failure. 4. Common femoral, superficial vein thrombosis. 5. Anemia 6. C.Diff RECS: 1. Continue vent support. 2. Antibiotics per ID 3. Tube feedings. 4. Follow H/H 5. Would consider IVC filter insertion given patients' poor candidacy for anticoagulation. MIKAEL BLISS MD Oct 10, 2018 17:12
[2018-10-10] MEDS: GENTAMICIN 100 MG/50 ML NS IVPB SCH (17:31)
[2018-10-10] MEDS: FAMOTIDINE 20 MG TAB GTB SCH (20:16)
[2018-10-11] VITALS (16 sets, daily range): BP systolic 110–124; BP diastolic 56–80; PULSE 89–101; RESP 16–29
[2018-10-11] MEDS: VANCOMYCIN HCL 250 MG/5ML POSYG GTB SCH ×4 (00:20→17:33)
[2018-10-11] MEDS: POTASSIUM CHLORIDE 20 MEQ POWDER FOR ORAL SOLN GTB SCH (08:16)
[2018-10-11] MEDS: AMIODARONE 200 MG TAB PO SCH ×2 (08:17→21:20)
[2018-10-11] MEDS: METOPROLOL (XL) 25 MG TAB PO SCH (08:17)
[2018-10-11] MEDS: BALSAM PERU/CASTOR OIL 60 GM TUBE TOP SCH (08:18)
[2018-10-11] MEDS: traMADol 50 MG TAB PEG SCH ×2 (08:18→21:20)
--- NOTE | 2018-10-11 09:13 | CONS ---
Assessment/Plan Assessment/Plan Hospital Course (Demo Recall) Paroxysmal atrial fibrillation: Now converted on amiodarone. Was on heparin due to DVT but now on hold due to head CT findings DVT: right femoral. On heparin, but head CT with multiple abnormalities. If not an anticoagulation candidate, can consider IVC filter though at that point, should have goals of care discussion with family Cardiomyopathy: EF 35%, ?etiology. Not a candidate for evaluation UTI C diff colitis Sepsis Chronic VDRF Brain tumor Chronic encephalopathy -consider anticoagulation if ok with neuro/neurosurg vs IVC filter depending on goals of care -amiodarone 400mg BID x 1 week, then 200mg BID x 1 week, then 200mg daily -metoprolol succinate 25mg as tolerated -antibiotics per ID -otherwise ok for placement Consultation Date/Type/Reason Admit Date/Time Oct 02, 2018 at 12:38 Initial Consult Date 10/06/18 Type of Consult Cardiology Requesting Provider: VIRGIE WOLF Date/Time of Note DATE: 10/11/18 TIME: 09:12 24 HR Interval Summary Free Text/Dictation No events Exam/Review of Systems Vital Signs Vitals Vital Signs Date Temp Pulse Resp B/P (MAP) Pulse Ox O2 O2 Flow FiO2 Time Delivery Rate 10/11/18 99.2 101 17 119/61 100 07:12 (80) 10/11/18 30 05:06 10/10/18 Mechanical 15:51 Ventilator Intake and Output 10/10/18 10/10/18 10/11/18 1515:00 23:00 07:00 IntakeIntake Total 980 ml 930 ml OutputOutput Total 950 ml 950 ml BalanceBalance 30 ml -20 ml Exam Constitutional: No alert, No oriented ENMT: other (s/p trach) Neck: supple; No jvd (unable to examine) Respiratory: diminished breath sounds; No clear to auscultation Cardiovascular: regular rate and rhythm; No edema, No systolic murmur Gastrointestinal: soft; No distended Neurological: No nl mental status, No nl speech Labs Result Diagram: 10/11/18 0454 10/11/18 0454 Results 24hrs Laboratory Tests Test 10/11/18 04:54 White Blood Count 13.9 #H Red Blood Count 3.17 L Hemoglobin 8.4 L Hematocrit 27.1 L Mean Corpuscular Volume 85.5 Mean Corpuscular Hemoglobin 26.5 L Mean Corpuscular Hemoglobin Concent 31.0 L Red Cell Distribution Width 18.3 H Platelet Count 272 Mean Platelet Volume 10.0 Immature Granulocytes % 0.800 H Neutrophils % 60.4 Lymphocytes % 27.2 Monocytes % 9.5 Eosinophils % 1.7 Basophils % 0.4 Nucleated Red Blood Cells % 0.0 Immature Granulocytes # 0.110 H Neutrophils # 8.4 H Lymphocytes # 3.8 H Monocytes # 1.3 H Eosinophils # 0.2 Basophils # 0.1 Nucleated Red Blood Cells # 0.0 Sodium Level 145 H Potassium Level 4.2 Chloride Level 115 H Carbon Dioxide Level 21 Anion Gap 9 Blood Urea Nitrogen 10 Creatinine 1.11 Est Glomerular Filtrat Rate mL/min Glucose Level 88 Calcium Level 8.1 L Medications Medications Current Medications IV Flush (NS 3 ml) 3 ml PER PROTOCOL IV ; Start 10/02/18 at 13:30 Hydromorphone HCl (Dilaudid) 0.5 mg Q4H PRN IV .SEVERE PAIN 7-10 Last administered on 10/05/18 12:55; Admin Dose 0.5 MG; Start 10/02/18 at 13:30 Levothyroxine Sodium (Synthroid) 50 mcg BEFORE BREAKFAST GTB Last administered on 10/10/18 08:21; Admin Dose 50 MCG; Start 10/03/18 at 07:00 Tramadol HCl (Ultram) 50 mg BID PEG Last administered on 10/11/18 08:18; Admin Dose 50 MG; Start 10/03/18 at 21:00 Potassium Chloride (Potassium Chloride Pwd/Soln) 40 meq DAILY GTB Last administered on 10/11/18 08:16; Admin Dose 40 MEQ; Start 10/04/18 at 18:00 Vancomycin HCl (Vancomycin Oral Syringe) 125 mg Q6 GTB Last administered on 10/11/18 05:09; Admin Dose 125 MG; Start 10/05/18 at 00:00 Famotidine (Pepcid) 20 mg HS GTB Last administered on 10/10/18 20:16; Admin Dose 20 MG; Start 10/04/18 at 21:00 Gentamicin Sulfate (Gentamicin Iv Per Pharmacy) GENTAMICIN PER PHARMACY NOTE XX ; Start 10/05/18 at 16:00 Gentamicin Sulfate 50 ml @ 100 mls/hr Q24H IVPB Last administered on 6/30/19at 17:31; Admin Dose 100 MLS/HR; Start 10/05/18 at 18:30 Metoprolol Succinate (Toprol Xl) 25 mg DAILY PO Last administered on 10/11/18at 08:17; Admin Dose 25 MG; Start 10/06/18 at 09:30 Amiodarone HCl (Cordarone) 400 mg BID PO Last administered on 10/11/18 08:17; A dmin Dose 400 MG; Start 10/07/18 at 10:30 FRED BERGER Oct 11, 2018 09:13
--- NOTE | 2018-10-11 12:28 | CONS ---
Consult Date/Type/Reason Admit Date/Time Oct 02, 2018 at 12:38 Initial Consult Date 10/06/18 Type of Consult Pulmonary Requesting Provider: VIRGIE WOLF Date/Time of Note DATE: 10/11/18 TIME: 12:27 Subjective Patient remains comfortable on AC mechanical ventilation no respiratory distress Objective Vital Signs Date Temp Pulse Resp B/P (MAP) Pulse Ox O2 O2 Flow FiO2 Time Delivery Rate 10/11/18 92 20 98 30 11:48 10/11/18 99.9 115/62 11:23 (79) 10/10/18 Mechanical 15:51 Ventilator Intake and Output 10/10/18 10/10/18 10/11/18 1515:00 23:00 07:00 IntakeIntake Total 980 ml 930 ml OutputOutput Total 950 ml 950 ml BalanceBalance 30 ml -20 ml Exam GENERAL: Ill-appearing gentleman on mechanical ventilation via tracheostomy VITAL SIGNS: per chart NECK: Supple. No JVD or lymphadenopathy. CARDIAC EXAM: S1, S2. No added sounds or murmurs. CHEST: Diminished air entry bilaterally ABDOMEN: Soft, nontender. No guarding or rebound. EXTREMITIES: No cyanosis, clubbing or edema. NEUROLOGIC: Generalized weakness. No focal deficits. Vent Setting Ventilator Support Mode: AC Fraction of Inspired Oxygen pe: 30 Positive End Expiratory Pressu: 5.0 Results/Medications Result Diagram: 10/11/18 0454 10/11/18 0454 Results 24 hrs Laboratory Tests Test 10/11/18 04:54 White Blood Count 13.9 #H Red Blood Count 3.17 L Hemoglobin 8.4 L Hematocrit 27.1 L Mean Corpuscular Volume 85.5 Mean Corpuscular Hemoglobin 26.5 L Mean Corpuscular Hemoglobin Concent 31.0 L Red Cell Distribution Width 18.3 H Platelet Count 272 Mean Platelet Volume 10.0 Immature Granulocytes % 0.800 H Neutrophils % 60.4 Lymphocytes % 27.2 Monocytes % 9.5 Eosinophils % 1.7 Basophils % 0.4 Nucleated Red Blood Cells % 0.0 Immature Granulocytes # 0.110 H Neutrophils # 8.4 H Lymphocytes # 3.8 H Monocytes # 1.3 H Eosinophils # 0.2 Basophils # 0.1 Nucleated Red Blood Cells # 0.0 Sodium Level 145 H Potassium Level 4.2 Chloride Level 115 H Carbon Dioxide Level 21 Anion Gap 9 Blood Urea Nitrogen 10 Creatinine 1.11 Est Glomerular Filtrat Rate mL/min Glucose Level 88 Calcium Level 8.1 L Medications Current Medications IV Flush (NS 3 ml) 3 ml PER PROTOCOL IV ; Start 10/02/18 at 13:30 Hydromorphone HCl (Dilaudid) 0.5 mg Q4H PRN IV .SEVERE PAIN 7-10 Last administered on 10/05/18 12:55; Admin Dose 0.5 MG; Start 10/02/18 at 13:30 Levothyroxine Sodium (Synthroid) 50 mcg BEFORE BREAKFAST GTB Last administered on 10/10/18 08:21; Admin Dose 50 MCG; Start 10/03/18 at 07:00 Tramadol HCl (Ultram) 50 mg BID PEG Last administered on 10/11/18 08:18; Admin Dose 50 MG; Start 10/03/18 at 21:00 Potassium Chloride (Potassium Chloride Pwd/Soln) 40 meq DAILY GTB Last administered on 10/11/18 08:16; Admin Dose 40 MEQ; Start 10/04/18 at 18:00 Vancomycin HCl (Vancomycin Oral Syringe) 125 mg Q6 GTB Last administered on 10/11/18 05:09; Admin Dose 125 MG; Start 10/05/18 at 00:00 Famotidine (Pepcid) 20 mg HS GTB Last administered on 10/10/18 20:16; Admin Dose 20 MG; Start 10/04/18 at 21:00 Gentamicin Sulfate (Gentamicin Iv Per Pharmacy) GENTAMICIN PER PHARMACY NOTE XX ; Start 10/05/18 at 16:00 Gentamicin Sulfate 50 ml @ 100 mls/hr Q24H IVPB Last administered on 10/10/18 17:31; Admin Dose 100 MLS/HR; Start 10/05/18 at 18:30 Metoprolol Succinate (Toprol Xl) 25 mg DAILY PO Last administered on 10/11/18 08:17; Admin Dose 25 MG; Start 10/06/18 at 09:30 Amiodarone HCl (Cordarone) 400 mg BID PO Last administered on 10/11/18 08:17; Admin Dose 400 MG; Start 10/07/18 at 10:30 Assessment/Plan Hospital Course (Demo Recall) IMP: 1. Pseudomonal urinary tract infection. 2. History of brain carcinoma. 3. Ventilator-dependent respiratory failure. 4. Common femoral, superficial vein thrombosis. 5. Anemia 6. C.Diff RECS: 1. Continue vent support. 2. Antibiotics per ID 3. Tube feedings. 4. Follow H/H DC planning pending authorization from insurance. ELIOT GALEAS MD, [facility] Oct 11, 2018 12:28
[2018-10-11] MEDS ORDERED: METO-335 PO (15:03)
[2018-10-11] MEDS ORDERED: Vancomycin Oral Syringe GTB (15:03)
[2018-10-11] MEDS ORDERED: AMIO200T4 PO (15:03)
--- NOTE | 2018-10-11 15:12 | CONS ---
Assessment/Plan Assessment/Plan Hospital Course (Demo Recall) No acute events overnight + low grade temp Indwelling: Trach PEG [place]inty[place] Antimicrobials: Gentamicin, oral vancomycin Physical examination: Well-developed chronically ill-appearing elderly man who is in no distress. Head atraumatic normocephalic neck is supple tracheostomy present chest rise symmetrical breath sounds diminished bases. Heart: S1-S2. Abdomen soft bowel sounds present. Assessment: 1. Status post sepsis 2. C. difficile colitis 3. Also supposed urinary tract infection 4. Paroxysmal atrial fibrillation on admission 5. Cardiomyopathy 6. Chronic encephalopathy 7. Right lower extremity DVT Plan: Stable, dc gentamicin after today's dose, continue oral Vanco Consultation Date/Type/Reason Admit Date/Time Oct 02, 2018 at 12:38 Initial Consult Date 10/06/18 Type of Consult id Requesting Provider: VIRGIE WOLF Date/Time of Note DATE: 10/11/18 TIME: 15:11 Exam/Review of Systems Exam Vitals Vital Signs Date Temp Pulse Resp B/P (MAP) Pulse Ox O2 O2 Flow FiO2 Time Delivery Rate 10/11/18 99.9 93 16 110/56 94 15:05 (74) 10/11/18 30 11:48 10/10/18 Mechanical 15:51 Ventilator Intake and Output 10/10/18 10/10/18 10/11/18 1515:00 23:00 07:00 IntakeIntake Total 980 ml 930 ml OutputOutput Total 950 ml 950 ml BalanceBalance 30 ml -20 ml Results Result Diagram: 10/11/18 0454 10/11/18 0454 Results 24hrs Laboratory Tests Test 10/11/18 04:54 White Blood Count 13.9 #H Red Blood Count 3.17 L Hemoglobin 8.4 L Hematocrit 27.1 L Mean Corpuscular Volume 85.5 Mean Corpuscular Hemoglobin 26.5 L Mean Corpuscular Hemoglobin Concent 31.0 L Red Cell Distribution Width 18.3 H Platelet Count 272 Mean Platelet Volume 10.0 Immature Granulocytes % 0.800 H Neutrophils % 60.4 Lymphocytes % 27.2 Monocytes % 9.5 Eosinophils % 1.7 Basophils % 0.4 Nucleated Red Blood Cells % 0.0 Immature Granulocytes # 0.110 H Neutrophils # 8.4 H Lymphocytes # 3.8 H Monocytes # 1.3 H Eosinophils # 0.2 Basophils # 0.1 Nucleated Red Blood Cells # 0.0 Sodium Level 145 H Potassium Level 4.2 Chloride Level 115 H Carbon Dioxide Level 21 Anion Gap 9 Blood Urea Nitrogen 10 Creatinine 1.11 Est Glomerular Filtrat Rate mL/min Glucose Level 88 Calcium Level 8.1 L Medications Medication Current Medications IV Flush (NS 3 ml) 3 ml PER PROTOCOL IV ; Start 10/02/18 at 13:30 Hydromorphone HCl (Dilaudid) 0.5 mg Q4H PRN IV .SEVERE PAIN 7-10 Last administered on 10/05/18 12:55; Admin Dose 0.5 MG; Start 10/02/18 at 13:30 Levothyroxine Sodium (Synthroid) 50 mcg BEFORE BREAKFAST GTB Last administered on 10/10/18 08:21; Admin Dose 50 MCG; Start 10/03/18 at 07:00 Tramadol HCl (Ultram) 50 mg BID PEG Last administered on 10/11/18 08:18; Admin Dose 50 MG; Start 10/03/18 at 21:00 Potassium Chloride (Potassium Chloride Pwd/Soln) 40 meq DAILY GTB Last administered on 10/11/18 08:16; Admin Dose 40 MEQ; Start 10/04/18 at 18:00 Vancomycin HCl (Vancomycin Oral Syringe) 125 mg Q6 GTB Last administered on 10/11/18 12:49; Admin Dose 125 MG; Start 10/05/18 at 00:00 Famotidine (Pepcid) 20 mg HS GTB Last administered on 10/10/18 20:16; Admin Dose 20 MG; Start 10/04/18 at 21:00 Gentamicin Sulfate (Gentamicin Iv Per Pharmacy) GENTAMICIN PER PHARMACY NOTE XX ; Start 10/05/18 at 16:00; Stop 10/11/18 at 23:45 Gentamicin Sulfate 50 ml @ 100 mls/hr Q24H IVPB Last administered on 10/10/18 17:31; Admin Dose 100 MLS/HR; Start 10/05/18 at 18:30; Stop 10/11/18 at 23:45 Metoprolol Succinate (Toprol Xl) 25 mg DAILY PO Last administered on 10/11/18 08:17; Admin Dose 25 MG; Start 10/06/18 at 09:30 Amiodarone HCl (Cordarone) 400 mg BID PO Last administered on 7/1/19at 08:17; Admin Dose 400 MG; Start 10/07/18 at 10:30 Multivitamins (Multivitamin) 30 ml DAILY GTB ; Start 10/12/18 at 09:00 Ascorbic Acid (Vitamin C) 500 mg BID GTB ; Start 10/11/18 at 21:00; Stop 10/21/18 at 20:59 Zinc Sulfate (Zinc Sulfate) 220 mg DAILY GTB ; Start 10/12/18 at 09:00; Stop 10/22/18 at 08:59 FITO ALEXANDER NP Oct 11, 2018 15:12
--- NOTE | 2018-10-11 15:57 | PN ---
Date/Time of Note Date/Time of Note DATE: 10/11/18 TIME: 15:56 Assessment/Plan VTE Prophylaxis Risk score (from Ns)>0 risk: 6 SCD applied (from Ns): Yes Pharmacological prophylaxis: NA/contraindicated Pharm contraindication: bleeding Lines/Catheters IV [facility]ter [facility] (from [facility]): Saline Lock Assessment/Plan Hospital Course 82 yo male with reported history of brain neoplasm though details unknown, chronic encephalopathy and respiratory failure on MV via trach with PEG who presented form [facility] with sepsis. Found to have extensive DVT and C Diff C Diff: - Continue treatment per ID UTI causing sepsis: - Continue antibiotics per ID DVT: - We are holding AC for now given brain tumor Chronic respiratory failure: - Continue MV via trach Brain neoplasm with chronic encephalopathy - Will discuss goals of care - Unclear baseline Full code for now though dismal prognosis. Hospice would be appropriate, family refusing [facility] placement Result Diagram: 10/11/18 0454 10/11/18 0454 Results 24hrs Laboratory Tests Test 10/11/18 04:54 White Blood Count 13.9 #H Red Blood Count 3.17 L Hemoglobin 8.4 L Hematocrit 27.1 L Mean Corpuscular Volume 85.5 Mean Corpuscular Hemoglobin 26.5 L Mean Corpuscular Hemoglobin Concent 31.0 L Red Cell Distribution Width 18.3 H Platelet Count 272 Mean Platelet Volume 10.0 Immature Granulocytes % 0.800 H Neutrophils % 60.4 Lymphocytes % 27.2 Monocytes % 9.5 Eosinophils % 1.7 Basophils % 0.4 Nucleated Red Blood Cells % 0.0 Immature Granulocytes # 0.110 H Neutrophils # 8.4 H Lymphocytes # 3.8 H Monocytes # 1.3 H Eosinophils # 0.2 Basophils # 0.1 Nucleated Red Blood Cells # 0.0 Sodium Level 145 H Potassium Level 4.2 Chloride Level 115 H Carbon Dioxide Level 21 Anion Gap 9 Blood Urea Nitrogen 10 Creatinine 1.11 Est Glomerular Filtrat Rate mL/min Glucose Level 88 Calcium Level 8.1 L Subjective 24 Hr Interval Summary Subjective hx not possible: pt non-verbal Exam/Review of Systems Exam Vitals Vital Signs Date Temp Pulse Resp B/P (MAP) Pulse Ox O2 O2 Flow FiO2 Time Delivery Rate 10/11/18 99.4 15:35 10/11/18 93 16 110/56 94 15:05 (74) 10/11/18 30 11:48 10/10/18 Mechanical 15:51 Ventilator Intake and Output 10/10/18 10/10/18 10/11/18 1515:00 23:00 07:00 IntakeIntake Total 980 ml 930 ml OutputOutput Total 950 ml 950 ml BalanceBalance 30 ml -20 ml Constitutional: non-verbal Respiratory: clear to auscultation Cardiovascular: regular rate and rhythm Gastrointestinal: soft; No distended Musculoskeletal: nl extremities to inspection Results Results 24hrs Laboratory Tests Test 10/11/18 04:54 White Blood Count 13.9 #H Red Blood Count 3.17 L Hemoglobin 8.4 L Hematocrit 27.1 L Mean Corpuscular Volume 85.5 Mean Corpuscular Hemoglobin 26.5 L Mean Corpuscular Hemoglobin Concent 31.0 L Red Cell Distribution Width 18.3 H Platelet Count 272 Mean Platelet Volume 10.0 Immature Granulocytes % 0.800 H Neutrophils % 60.4 Lymphocytes % 27.2 Monocytes % 9.5 Eosinophils % 1.7 Basophils % 0.4 Nucleated Red Blood Cells % 0.0 Immature Granulocytes # 0.110 H Neutrophils # 8.4 H Lymphocytes # 3.8 H Monocytes # 1.3 H Eosinophils # 0.2 Basophils # 0.1 Nucleated Red Blood Cells # 0.0 Sodium Level 145 H Potassium Level 4.2 Chloride Level 115 H Carbon Dioxide Level 21 Anion Gap 9 Blood Urea Nitrogen 10 Creatinine 1.11 Est Glomerular Filtrat Rate mL/min Glucose Level 88 Calcium Level 8.1 L Medications Medication Current Medications IV Flush (NS 3 ml) 3 ml PER PROTOCOL IV ; Start 10/02/18 at 13:30 Hydromorphone HCl (Dilaudid) 0.5 mg Q4H PRN IV .SEVERE PAIN 7-10 Last administered on 10/05/18at 12:55; Admin Dose 0.5 MG; Start 10/02/18 at 13:30 Levothyroxine Sodium (Synthroid) 50 mcg BEFORE BREAKFAST GTB Last administered on 10/10/18at 08:21; Admin Dose 50 MCG; Start 10/03/18 at 07:00 Tramadol HCl (Ultram) 50 mg BID PEG Last administered on 10/11/18 08:18; Admin Dose 50 MG; Start 10/03/18 at 21:00 Potassium Chloride (Potassium Chloride Pwd/Soln) 40 meq DAILY GTB Last administered on 10/11/18 08:16; Admin Dose 40 MEQ; Start 10/04/18 at 18:00 Vancomycin HCl (Vancomycin Oral Syringe) 125 mg Q6 GTB Last administered on 10/11/18at 12:49; Admin Dose 125 MG; Start 10/05/18 at 00:00 Famotidine (Pepcid) 20 mg HS GTB Last administered on 10/10/18at 20:16; Admin Dose 20 MG; Start 10/04/18 at 21:00 Gentamicin Sulfate (Gentamicin Iv Per Pharmacy) GENTAMICIN PER PHARMACY NOTE XX ; Start 10/05/18 at 16:00; Stop 10/11/18 at 23:45 Gentamicin Sulfate 50 ml @ 100 mls/hr Q24H IVPB Last administered on 10/10/18at 17:31; Admin Dose 100 MLS/HR; Start 10/05/18 at 18:30; Stop 10/11/18 at 23:45 Metoprolol Succinate (Toprol Xl) 25 mg DAILY PO Last administered on 10/11/18 08:17; Admin Dose 25 MG; Start 10/06/18 at 09:30 Amiodarone HCl (Cordarone) 400 mg BID PO Last administered on 10/11/18at 08:17; Admin Dose 400 MG; Start 10/07/18 at 10:30 Multivitamins (Multivitamin) 30 ml DAILY GTB ; Start 10/12/18 at 09:00 Ascorbic Acid (Vitamin C) 500 mg BID GTB ; Start 10/11/18 at 21:00; Stop 10/21/18 at 20:59 Zinc Sulfate (Zinc Sulfate) 220 mg DAILY GTB ; Start 10/12/18 at 09:00; Stop 10/22/18 at 08:59 TANIYA LOVE Oct 11, 2018 15:57
[2018-10-11] MEDS: GENTAMICIN 100 MG/50 ML NS IVPB SCH (18:14)
[2018-10-11] MEDS: FAMOTIDINE 20 MG TAB GTB SCH (21:20)
[2018-10-11] MEDS: ASCORBIC ACID 500 MG TAB GTB SCH (21:21)
[2018-10-12] VITALS (19 sets, daily range): BP systolic 110–126; BP diastolic 56–69; PULSE 60–97; RESP 13–20
[2018-10-12] MEDS: VANCOMYCIN HCL 250 MG/5ML POSYG GTB SCH ×5 (01:01→23:54)
[2018-10-12] MEDS: LEVOTHYROXINE 50 MCG TAB GTB SCH (06:30)
--- NOTE | 2018-10-12 07:53 | CONS ---
Assessment/Plan Assessment/Plan Hospital Course (Demo Recall) Paroxysmal atrial fibrillation: Now converted on amiodarone. Was on heparin due to DVT but now on hold due to head CT findings DVT: right femoral. On heparin, but head CT with multiple abnormalities. If not an anticoagulation candidate, can consider IVC filter though at that point, should have goals of care discussion with family Cardiomyopathy: EF 35%, ?etiology. Not a candidate for evaluation UTI C diff colitis Sepsis Chronic VDRF Brain tumor Chronic encephalopathy -consider anticoagulation if ok with neuro/neurosurg vs IVC filter depending on goals of care -amiodarone 400mg BID x 1 week, then 10/15/18 switch to 200mg BID x 1 week, then 200mg daily -metoprolol succinate 25mg as tolerated -antibiotics per ID -otherwise ok for placement Consultation Date/Type/Reason Admit Date/Time Oct 02, 2018 at 12:38 Initial Consult Date 10/06/18 Type of Consult Cardiology Requesting Provider: VIRGIE WOLF Date/Time of Note DATE: 10/12/18 TIME: 07:52 24 HR Interval Summary Free Text/Dictation No events. Remains in sinus Exam/Review of Systems Vital Signs Vitals Vital Signs Date Temp Pulse Resp B/P (MAP) Pulse Ox O2 O2 Flow FiO2 Time Delivery Rate 10/12/18 98.9 87 20 126/57 100 07:31 (80) 10/12/18 30 05:29 10/12/18 Mechanical 04:31 Ventilator Intake and Output 10/11/18 10/11/18 10/12/18 1515:00 23:00 07:00 IntakeIntake Total 1170 ml OutputOutput Total 800 ml 1100 ml BalanceBalance -800 ml 70 ml Exam Constitutional: No alert, No oriented ENMT: other (s/p trach) Neck: supple; No jvd (unabel to assess) Respiratory: diminished breath sounds; No clear to auscultation Cardiovascular: regular rate and rhythm, edema (1+) Gastrointestinal: soft; No distended Neurological: No nl mental status, No nl speech Labs Result Diagram: 10/12/18 0457 10/12/18 3663 Results 24hrs Laboratory Tests Test 10/12/18 04:55 10/12/18 04:57 Sodium Level 145 H Potassium Level 3.9 Chloride Level 115 H Carbon Dioxide Level 22 Anion Gap 8 Blood Urea Nitrogen 11 Creatinine 1.18 Est Glomerular Filtrat Rate mL/min Glucose Level 102 Calcium Level 8.1 L White Blood Count 12.2 H Red Blood Count 2.97 L Hemoglobin 8.0 L Hematocrit 25.6 L Mean Corpuscular Volume 86.2 Mean Corpuscular Hemoglobin 26.9 L Mean Corpuscular Hemoglobin Concent 31.3 L Red Cell Distribution Width 18.4 H Platelet Count 235 Mean Platelet Volume 10.3 Immature Granulocytes % 0.600 H Neutrophils % 52.7 Lymphocytes % 34.2 Monocytes % 9.9 Eosinophils % 2.1 Basophils % 0.5 Nucleated Red Blood Cells % 0.0 Immature Granulocytes # 0.070 H Neutrophils # 6.4 Lymphocytes # 4.2 H Monocytes # 1.2 H Eosinophils # 0.3 Basophils # 0.1 Nucleated Red Blood Cells # 0.0 Medications Medications Current Medications IV Flush (NS 3 ml) 3 ml PER PROTOCOL IV ; Start 10/02/18 at 13:30 Hydromorphone HCl (Dilaudid) 0.5 mg Q4H PRN IV .SEVERE PAIN 7-10 Last administered on 10/05/18 12:55; Admin Dose 0.5 MG; Start 10/02/18 at 13:30 Levothyroxine Sodium (Synthroid) 50 mcg BEFORE BREAKFAST GTB Last administered on 10/12/18 06:30; Admin Dose 50 MCG; Start 10/03/18 at 07:00 Tramadol HCl (Ultram) 50 mg BID PEG Last administered on 10/11/18 21:20; Admin Dose 50 MG; Start 10/03/18 at 21:00 Potassium Chloride (Potassium Chloride Pwd/Soln) 40 meq DAILY GTB Last administered on 10/11/18 08:16; Admin Dose 40 MEQ; Start 10/04/18 at 18:00 Vancomycin HCl (Vancomycin Oral Syringe) 125 mg Q6 GTB Last administered on 10/12/18 06:30; Admin Dose 125 MG; Start 10/05/18 at 00:00 Famotidine (Pepcid) 20 mg HS GTB Last administered on 10/11/18 21:20; Admin Dose 20 MG; Start 10/04/18 at 21:00 Metoprolol Succinate (Toprol Xl) 25 mg DAILY PO Last administered on 10/11/18 08:17; Admin Dose 25 MG; Start 10/06/18 at 09:30 Amiodarone HCl (Cordarone) 400 mg BID PO Last administered on 10/11/18at 21:20; Admin Dose 400 MG; Start 10/07/18 at 10:30 Multivitamins (Multivitamin) 30 ml DAILY GTB ; Start 10/12/18 at 09:00 Ascorbic Acid (Vitamin C) 500 mg BID GTB Last administered on 10/11/18at 21:21; Admin Dose 500 MG; Start 10/11/18 at 21:00; Stop 10/21/18 at 20:59 Zinc Sulfate (Zinc Sulfate) 220 mg DAILY GTB ; Start 10/12/18 at 09:00; Stop 10/22/18 at 08:59 FRED BERGER Oct 12, 2018 07:53
[2018-10-12] MEDS: ASCORBIC ACID 500 MG TAB GTB SCH ×2 (09:39→21:37)
[2018-10-12] MEDS: ZINC SULFATE 220 MG CAP GTB SCH (09:39)
[2018-10-12] MEDS: MULTIVITAMINS 30 ML CUP GTB SCH (09:39)
[2018-10-12] MEDS: POTASSIUM CHLORIDE 20 MEQ POWDER FOR ORAL SOLN GTB SCH (09:39)
[2018-10-12] MEDS: BALSAM PERU/CASTOR OIL 60 GM TUBE TOP SCH (09:40)
[2018-10-12] MEDS: AMIODARONE 200 MG TAB PO SCH ×2 (09:40→21:37)
[2018-10-12] MEDS: METOPROLOL (XL) 25 MG TAB PO SCH (09:41)
[2018-10-12] MEDS: traMADol 50 MG TAB PEG SCH ×2 (09:50→21:37)
--- NOTE | 2018-10-12 11:35 | CONS ---
Assessment/Plan Assessment/Plan Hospital Course (Demo Recall) No acute events overnight Indwelling: Trach PEG [place] Antimicrobials: Oral vancomycin Physical examination: Well-developed chronically ill-appearing elderly man who is in no distress. Head atraumatic normocephalic neck is supple tracheostomy present chest rise symmetrical breath sounds diminished bases. Heart: S1-S2. Abdomen soft bowel sounds present. Assessment: 1. Status post sepsis 2. C. difficile colitis 3. S/p urinary tract infection 4. Paroxysmal atrial fibrillation on admission 5. Cardiomyopathy 6. Chronic encephalopathy 7. Right lower extremity DVT Plan: Stable, continue oral Vanco Consultation Date/Type/Reason Admit Date/Time Oct 02, 2018 at 12:38 Initial Consult Date 10/06/18 Type of Consult id Requesting Provider: VIRGIE WOLF Date/Time of Note DATE: 10/12/18 TIME: 11:34 Exam/Review of Systems Exam Vitals Vital Signs Date Temp Pulse Resp B/P (MAP) Pulse Ox O2 O2 Flow FiO2 Time Delivery Rate 10/12/18 99.0 91 20 110/56 100 11:31 (74) 10/12/18 30 11:06 10/12/18 Mechanical 08:21 Ventilator Intake and Output 10/11/18 10/11/18 10/12/18 1515:00 23:00 07:00 IntakeIntake Total 1170 ml OutputOutput Total 800 ml 1100 ml BalanceBalance -800 ml 70 ml Results Result Diagram: 10/12/18 0457 10/12/18 0455 Results 24hrs Laboratory Tests Test 10/12/18 04:55 10/12/18 04:57 Sodium Level 145 H Potassium Level 3.9 Chloride Level 115 H Carbon Dioxide Level 22 Anion Gap 8 Blood Urea Nitrogen 11 Creatinine 1.18 Est Glomerular Filtrat Rate mL/min Glucose Level 102 Calcium Level 8.1 L White Blood Count 12.2 H Red Blood Count 2.97 L Hemoglobin 8.0 L Hematocrit 25.6 L Mean Corpuscular Volume 86.2 Mean Corpuscular Hemoglobin 26.9 L Mean Corpuscular Hemoglobin Concent 31.3 L Red Cell Distribution Width 18.4 H Platelet Count 235 Mean Platelet Volume 10.3 Immature Granulocytes % 0.600 H Neutrophils % 52.7 Lymphocytes % 34.2 Monocytes % 9.9 Eosinophils % 2.1 Basophils % 0.5 Nucleated Red Blood Cells % 0.0 Immature Granulocytes # 0.070 H Neutrophils # 6.4 Lymphocytes # 4.2 H Monocytes # 1.2 H Eosinophils # 0.3 Basophils # 0.1 Nucleated Red Blood Cells # 0.0 Medications Medication Current Medications IV Flush (NS 3 ml) 3 ml PER PROTOCOL IV ; Start 10/02/18 at 13:30 Hydromorphone HCl (Dilaudid) 0.5 mg Q4H PRN IV .SEVERE PAIN 7-10 Last administered on 10/05/18 12:55; Admin Dose 0.5 MG; Start 10/02/18 at 13:30 Levothyroxine Sodium (Synthroid) 50 mcg BEFORE BREAKFAST GTB Last administered on 10/12/18 06:30; Admin Dose 50 MCG; Start 10/03/18 at 07:00 Tramadol HCl (Ultram) 50 mg BID PEG Last administered on 10/12/18 09:50; Admin Dose 50 MG; Start 10/03/18 at 21:00 Potassium Chloride (Potassium Chloride Pwd/Soln) 40 meq DAILY GTB Last administered on 10/12/18 09:39; Admin Dose 40 MEQ; Start 10/04/18 at 18:00 Vancomycin HCl (Vancomycin Oral Syringe) 125 mg Q6 GTB Last administered on 10/12/18 06:30; Admin Dose 125 MG; Start 10/05/18 at 00:00 Famotidine (Pepcid) 20 mg HS GTB Last administered on 10/11/18 21:20; Admin Dose 20 MG; Start 10/04/18 at 21:00 Metoprolol Succinate (Toprol Xl) 25 mg DAILY PO Last administered on 10/12/18 09:41; Admin Dose 25 MG; Start 10/06/18 at 09:30 Amiodarone HCl (Cordarone) 400 mg BID PO Last administered on 10/12/18 09:40; Admin Dose 400 MG; Start 10/07/18 at 10:30 Multivitamins (Multivitamin) 30 ml DAILY GTB Last administered on 10/12/18 09:39; Admin Dose 30 ML; Start 10/12/18 at 09:00 Ascorbic Acid (Vitamin C) 500 mg BID GTB Last administered on 10/12/18 09:39; Admin Dose 500 MG; Start 10/11/18 at 21:00; Stop 10/21/18 at 20:59 Zinc Sulfate (Zinc Sulfate) 220 mg DAILY GTB Last administered on 10/12/18at 09:39; Admin Dose 220 MG; Start 10/12/18 at 09:00; Stop 10/22/18 at 08:59 FITO ALEXANDER NP Oct 12, 2018 11:35
--- NOTE | 2018-10-12 12:27 | CONS ---
Consult Date/Type/Reason Admit Date/Time Oct 02, 2018 at 12:38 Initial Consult Date 10/06/18 Type of Consult Pulmonary Requesting Provider: VIRGIE WOLF Date/Time of Note DATE: 10/12/18 TIME: 12:26 Subjective No significant changes. Patient continues mechanical ventilation largely somnolent. Objective Vital Signs Date Temp Pulse Resp B/P (MAP) Pulse Ox O2 O2 Flow FiO2 Time Delivery Rate 10/12/18 99.0 91 20 110/56 100 11:31 (74) 10/12/18 30 11:06 10/12/18 Mechanical 08:21 Ventilator Intake and Output 10/11/18 10/11/18 10/12/18 1515:00 23:00 07:00 IntakeIntake Total 1170 ml OutputOutput Total 800 ml 1100 ml BalanceBalance -800 ml 70 ml Exam GENERAL: Ill-appearing gentleman on mechanical ventilation via tracheostomy VITAL SIGNS: per chart NECK: Supple. No JVD or lymphadenopathy. CARDIAC EXAM: S1, S2. No added sounds or murmurs. CHEST: Diminished air entry bilaterally ABDOMEN: Soft, nontender. No guarding or rebound. EXTREMITIES: No cyanosis, clubbing or edema. NEUROLOGIC: Generalized weakness. No focal deficits. Vent Setting Ventilator Support Mode: AC Fraction of Inspired Oxygen pe: 30 Positive End Expiratory Pressu: 5.0 Results/Medications Result Diagram: 10/12/18 0457 10/12/18 0455 Results 24 hrs Laboratory Tests Test 10/12/18 04:55 10/12/18 04:57 Sodium Level 145 H Potassium Level 3.9 Chloride Level 115 H Carbon Dioxide Level 22 Anion Gap 8 Blood Urea Nitrogen 11 Creatinine 1.18 Est Glomerular Filtrat Rate mL/min Glucose Level 102 Calcium Level 8.1 L White Blood Count 12.2 H Red Blood Count 2.97 L Hemoglobin 8.0 L Hematocrit 25.6 L Mean Corpuscular Volume 86.2 Mean Corpuscular Hemoglobin 26.9 L Mean Corpuscular Hemoglobin Concent 31.3 L Red Cell Distribution Width 18.4 H Platelet Count 235 Mean Platelet Volume 10.3 Immature Granulocytes % 0.600 H Neutrophils % 52.7 Lymphocytes % 34.2 Monocytes % 9.9 Eosinophils % 2.1 Basophils % 0.5 Nucleated Red Blood Cells % 0.0 Immature Granulocytes # 0.070 H Neutrophils # 6.4 Lymphocytes # 4.2 H Monocytes # 1.2 H Eosinophils # 0.3 Basophils # 0.1 Nucleated Red Blood Cells # 0.0 Medications Current Medications IV Flush (NS 3 ml) 3 ml PER PROTOCOL IV ; Start 10/02/18 at 13:30 Hydromorphone HCl (Dilaudid) 0.5 mg Q4H PRN IV .SEVERE PAIN 7-10 Last administered on 10/05/18 12:55; Admin Dose 0.5 MG; Start 10/02/18 at 13:30 Levothyroxine Sodium (Synthroid) 50 mcg BEFORE BREAKFAST GTB Last administered on 10/12/18 06:30; Admin Dose 50 MCG; Start 10/03/18 at 07:00 Tramadol HCl (Ultram) 50 mg BID PEG Last administered on 10/12/18 09:50; Admin Dose 50 MG; Start 10/03/18 at 21:00 Potassium Chloride (Potassium Chloride Pwd/Soln) 40 meq DAILY GTB Last administered on 10/12/18 09:39; Admin Dose 40 MEQ; Start 10/04/18 at 18:00 Vancomycin HCl (Vancomycin Oral Syringe) 125 mg Q6 GTB Last administered on 10/12/18 06:30; Admin Dose 125 MG; Start 10/05/18 at 00:00 Famotidine (Pepcid) 20 mg HS GTB Last administered on 10/11/18 21:20; Admin Dose 20 MG; Start 10/04/18 at 21:00 Metoprolol Succinate (Toprol Xl) 25 mg DAILY PO Last administered on 10/12/18 09:41; Admin Dose 25 MG; Start 10/06/18 at 09:30 Amiodarone HCl (Cordarone) 400 mg BID PO Last administered on 10/12/18 09:40; Admin Dose 400 MG; Start 10/07/18 at 10:30 Multivitamins (Multivitamin) 30 ml DAILY GTB Last administered on 10/12/18 09:39; Admin Dose 30 ML; Start 10/12/18 at 09:00 Ascorbic Acid (Vitamin C) 500 mg BID GTB Last administered on 10/12/18 09:39; Admin Dose 500 MG; Start 10/11/18 at 21:00; Stop 10/21/18 at 20:59 Zinc Sulfate (Zinc Sulfate) 220 mg DAILY GTB Last administered on 10/12/18at 09:39; Admin Dose 220 MG; Start 10/12/18 at 09:00; Stop 10/22/18 at 08:59 Assessment/Plan Hospital Course (Demo Recall) IMP: 1. Pseudomonal urinary tract infection. 2. History of brain carcinoma. 3. Ventilator-dependent respiratory failure. 4. Common femoral, superficial vein thrombosis. 5. Anemia 6. C.Diff RECS: 1. Continue vent support. 2. Antibiotics per ID 3. Tube feedings. 4. Follow H/H DC planning Case management note reviewed. ELIOT GALEAS MD, [facility] Oct 12, 2018 12:27
--- NOTE | 2018-10-12 14:40 | PN ---
Date/Time of Note Date/Time of Note DATE: 10/12/18 TIME: 14:39 Assessment/Plan VTE Prophylaxis Risk score (from Ns)>0 risk: 6 SCD applied (from Ns): Yes Pharmacological prophylaxis: NA/contraindicated Pharm contraindication: other Lines/Catheters IV C[facility]ter Type (from [facility]): Saline Lock Assessment/Plan Hospital Course 82 yo male with reported history of brain neoplasm though details unknown, chronic encephalopathy and respiratory failure on MV via trach with PEG who [facility] with [facility]. Found to have extensive DVT and C Diff C Diff: - Continue treatment per ID UTI causing sepsis: - Continue antibiotics per ID DVT: - We are holding AC for now given brain tumor Chronic respiratory failure: - Continue MV via trach Brain neoplasm with chronic encephalopathy - Will discuss goals of care - Unclear baseline Full code for now though dismal prognosis. Hospice would be appropriate, family refusing [facility] placement and have appealed discharge Result Diagram: 10/12/18 0457 10/12/18 0455 Results 24hrs Laboratory Tests Test 10/12/18 04:55 10/12/18 04:57 Sodium Level 145 H Potassium Level 3.9 Chloride Level 115 H Carbon Dioxide Level 22 Anion Gap 8 Blood Urea Nitrogen 11 Creatinine 1.18 Est Glomerular Filtrat Rate mL/min Glucose Level 102 Calcium Level 8.1 L White Blood Count 12.2 H Red Blood Count 2.97 L Hemoglobin 8.0 L Hematocrit 25.6 L Mean Corpuscular Volume 86.2 Mean Corpuscular Hemoglobin 26.9 L Mean Corpuscular Hemoglobin Concent 31.3 L Red Cell Distribution Width 18.4 H Platelet Count 235 Mean Platelet Volume 10.3 Immature Granulocytes % 0.600 H Neutrophils % 52.7 Lymphocytes % 34.2 Monocytes % 9.9 Eosinophils % 2.1 Basophils % 0.5 Nucleated Red Blood Cells % 0.0 Immature Granulocytes # 0.070 H Neutrophils # 6.4 Lymphocytes # 4.2 H Monocytes # 1.2 H Eosinophils # 0.3 Basophils # 0.1 Nucleated Red Blood Cells # 0.0 Subjective 24 Hr Interval Summary Subjective hx not possible: pt non-verbal Exam/Review of Systems Exam Vitals Vital Signs Date Temp Pulse Resp B/P (MAP) Pulse Ox O2 O2 Flow FiO2 Time Delivery Rate 10/12/18 30 13:19 10/12/18 89 15 99 13:10 10/12/18 99.0 110/56 11:31 (74) 10/12/18 Mechanical 08:21 Ventilator Intake and Output 10/11/18 10/11/18 10/12/18 1515:00 23:00 07:00 IntakeIntake Total 1170 ml OutputOutput Total 800 ml 1100 ml BalanceBalance -800 ml 70 ml Constitutional: non-verbal Respiratory: clear to auscultation Cardiovascular: regular rate and rhythm Gastrointestinal: soft; No distended Musculoskeletal: nl extremities to inspection Results Results 24hrs Laboratory Tests Test 10/12/18 04:55 10/12/18 04:57 Sodium Level 145 H Potassium Level 3.9 Chloride Level 115 H Carbon Dioxide Level 22 Anion Gap 8 Blood Urea Nitrogen 11 Creatinine 1.18 Est Glomerular Filtrat Rate mL/min Glucose Level 102 Calcium Level 8.1 L White Blood Count 12.2 H Red Blood Count 2.97 L Hemoglobin 8.0 L Hematocrit 25.6 L Mean Corpuscular Volume 86.2 Mean Corpuscular Hemoglobin 26.9 L Mean Corpuscular Hemoglobin Concent 31.3 L Red Cell Distribution Width 18.4 H Platelet Count 235 Mean Platelet Volume 10.3 Immature Granulocytes % 0.600 H Neutrophils % 52.7 Lymphocytes % 34.2 Monocytes % 9.9 Eosinophils % 2.1 Basophils % 0.5 Nucleated Red Blood Cells % 0.0 Immature Granulocytes # 0.070 H Neutrophils # 6.4 Lymphocytes # 4.2 H Monocytes # 1.2 H Eosinophils # 0.3 Basophils # 0.1 Nucleated Red Blood Cells # 0.0 Medications Medication Current Medications IV Flush (NS 3 ml) 3 ml PER PROTOCOL IV ; Start 10/02/18 at 13:30 Hydromorphone HCl (Dilaudid) 0.5 mg Q4H PRN IV .SEVERE PAIN 7-10 Last administered on 10/05/18at 12:55; Admin Dose 0.5 MG; Start 10/02/18 at 13:30 Levothyroxine Sodium (Synthroid) 50 mcg BEFORE BREAKFAST GTB Last administered on 10/12/18at 06:30; Admin Dose 50 MCG; Start 10/03/18 at 07:00 Tramadol HCl (Ultram) 50 mg BID PEG Last administered on 10/12/18at 09:50; Admin Dose 50 MG; Start 10/03/18 at 21:00 Potassium Chloride (Potassium Chloride Pwd/Soln) 40 meq DAILY GTB Last administered on 10/12/18 09:39; Admin Dose 40 MEQ; Start 10/04/18 at 18:00 Vancomycin HCl (Vancomycin Oral Syringe) 125 mg Q6 GTB Last administered on 10/12/18 12:42; Admin Dose 125 MG; Start 10/05/18 at 00:00 Famotidine (Pepcid) 20 mg HS GTB Last administered on 10/11/18 21:20; Admin Dose 20 MG; Start 10/04/18 at 21:00 Metoprolol Succinate (Toprol Xl) 25 mg DAILY PO Last administered on 10/12/18 09:41; Admin Dose 25 MG; Start 10/06/18 at 09:30 Amiodarone HCl (Cordarone) 400 mg BID PO Last administered on 10/12/18 09:40; Admin Dose 400 MG; Start 10/07/18 at 10:30 Multivitamins (Multivitamin) 30 ml DAILY GTB Last administered on 10/12/18 09:39; Admin Dose 30 ML; Start 10/12/18 at 09:00 Ascorbic Acid (Vitamin C) 500 mg BID GTB Last administered on 10/12/18 09:39; Admin Dose 500 MG; Start 10/11/18 at 21:00; Stop 10/21/18 at 20:59 Zinc Sulfate (Zinc Sulfate) 220 mg DAILY GTB Last administered on 10/12/18 09:39; Admin Dose 220 MG; Start 10/12/18 at 09:00; Stop 10/22/18 at 08:59 TANIYA LOVE Oct 12, 2018 14:40
[2018-10-12] MEDS: FAMOTIDINE 20 MG TAB GTB SCH (21:37)
[2018-10-13] VITALS (17 sets, daily range): BP systolic 115–130; BP diastolic 58–71; PULSE 92–99; RESP 12–20
[2018-10-13] MEDS: LEVOTHYROXINE 50 MCG TAB GTB SCH (05:10)
[2018-10-13] MEDS: VANCOMYCIN HCL 250 MG/5ML POSYG GTB SCH ×3 (05:10→18:07)
[2018-10-13] MEDS: ZINC SULFATE 220 MG CAP GTB SCH (08:59)
[2018-10-13] MEDS: METOPROLOL (XL) 25 MG TAB PO SCH (08:59)
[2018-10-13] MEDS: AMIODARONE 200 MG TAB PO SCH ×2 (08:59→22:07)
[2018-10-13] MEDS: ASCORBIC ACID 500 MG TAB GTB SCH ×2 (08:59→22:06)
[2018-10-13] MEDS: traMADol 50 MG TAB PEG SCH ×2 (09:00→22:06)
[2018-10-13] MEDS: BALSAM PERU/CASTOR OIL 60 GM TUBE TOP SCH (09:00)
[2018-10-13] MEDS: MULTIVITAMINS 30 ML CUP GTB SCH (09:00)
[2018-10-13] MEDS: POTASSIUM CHLORIDE 20 MEQ POWDER FOR ORAL SOLN GTB SCH (09:00)
--- NOTE | 2018-10-13 12:41 | CONS ---
Assessment/Plan Assessment/Plan Hospital Course (Demo Recall) Paroxysmal atrial fibrillation: Now converted on amiodarone. Was on heparin due to DVT but now on hold due to head CT findings DVT: right femoral. On heparin, but head CT with multiple abnormalities. If not an anticoagulation candidate, can consider IVC filter though at that point, should have goals of care discussion with family Cardiomyopathy: EF 35%, ?etiology. Not a candidate for evaluation UTI C diff colitis Sepsis Chronic VDRF Brain tumor Chronic encephalopathy -amiodarone 400mg BID x 1 week, then 10/15/18 switch to 200mg BID x 1 week, then 200mg daily -metoprolol succinate 25mg as tolerated -antibiotics per ID -otherwise ok for placement Consultation Date/Type/Reason Admit Date/Time Oct 02, 2018 at 12:38 Initial Consult Date 10/06/18 Type of Consult Cardiology Requesting Provider: VIRGIE WOLF Date/Time of Note DATE: 10/13/18 TIME: 12:40 24 HR Interval Summary Free Text/Dictation No events. Exam/Review of Systems Vital Signs Vitals Vital Signs Date Temp Pulse Resp B/P (MAP) Pulse Ox O2 O2 Flow FiO2 Time Delivery Rate 10/13/18 98.1 94 20 119/58 99 Mechanical 11:30 (78) Ventilator 10/13/18 30 08:11 Intake and Output 10/12/18 10/12/18 10/13/18 1515:00 23:00 07:00 IntakeIntake Total 510 ml 550 ml 920 ml OutputOutput Total 1600 ml 1250 ml BalanceBalance 510 ml -1050 ml -330 ml Exam Constitutional: No alert, No oriented ENMT: other (s/p trach) Neck: No jvd Respiratory: diminished breath sounds; No clear to auscultation Cardiovascular: regular rate and rhythm, edema (trace) Gastrointestinal: soft; No distended Neurological: No nl mental status, No nl speech Labs Result Diagram: 10/12/18 0457 10/12/18 0455 Medications Medications Current Medications IV Flush (NS 3 ml) 3 ml PER PROTOCOL IV ; Start 10/02/18 at 13:30 Hydromorphone HCl (Dilaudid) 0.5 mg Q4H PRN IV .SEVERE PAIN 7-10 Last administered on 10/05/18at 12:55; Admin Dose 0.5 MG; Start 10/02/18 at 13:30 Levothyroxine Sodium (Synthroid) 50 mcg BEFORE BREAKFAST GTB Last administered on 10/13/18 05:10; Admin Dose 50 MCG; Start 10/03/18 at 07:00 Tramadol HCl (Ultram) 50 mg BID PEG Last administered on 10/13/18 09:00; Admin Dose 50 MG; Start 10/03/18 at 21:00 Potassium Chloride (Potassium Chloride Pwd/Soln) 40 meq DAILY GTB Last administered on 10/13/18 09:00; Admin Dose 40 MEQ; Start 10/04/18 at 18:00 Vancomycin HCl (Vancomycin Oral Syringe) 125 mg Q6 GTB Last administered on 10/13/18 12:30; Admin Dose 125 MG; Start 10/05/18 at 00:00 Famotidine (Pepcid) 20 mg HS GTB Last administered on 10/12/18 21:37; Admin Dose 20 MG; Start 10/04/18 at 21:00 Metoprolol Succinate (Toprol Xl) 25 mg DAILY PO Last administered on 10/13/18 08:59; Admin Dose 25 MG; Start 10/06/18 at 09:30 Amiodarone HCl (Cordarone) 400 mg BID PO Last administered on 10/13/18 08:59; Admin Dose 400 MG; Start 10/07/18 at 10:30 Multivitamins (Multivitamin) 30 ml DAILY GTB Last administered on 10/13/18 09:00; Admin Dose 30 ML; Start 10/12/18 at 09:00 Ascorbic Acid (Vitamin C) 500 mg BID GTB Last administered on 10/13/18 08:59; Admin Dose 500 MG; Start 10/11/18 at 21:00; Stop 10/21/18 at 20:59 Zinc Sulfate (Zinc Sulfate) 220 mg DAILY GTB Last administered on 10/13/18 08:59; Admin Dose 220 MG; Start 10/12/18 at 09:00; Stop 10/22/18 at 08:59 FRED BERGER Oct 13, 2018 12:41
--- NOTE | 2018-10-13 13:09 | PN ---
Date/Time of Note Date/Time of Note DATE: 10/13/18 TIME: 13:09 Assessment/Plan VTE Prophylaxis Risk score (from Nsg)>0 risk: 9 Pharmacological prophylaxis: NA/contraindicated Pharm contraindication: other Lines/Catheters IV Catheter Type (from Nrsg): Saline Lock Assessment/Plan Hospital Course 82 yo male with reported history of brain neoplasm though details unknown, chronic encephalopathy and respiratory failure on MV via trach with PEG who presented form assisted with sepsis. Found to have extensive DVT and C Diff C Diff: - Continue treatment per ID UTI causing sepsis: - Continue antibiotics per ID DVT: - We are holding AC for now given brain tumor Chronic respiratory failure: - Continue MV via trach Brain neoplasm with chronic encephalopathy - Will discuss goals of care - Unclear baseline Full code for now though dismal prognosis. Hospice would be appropriate, family refusing assisted placement and have appealed discharge Result Diagram: 10/12/1845610/12/18454 Subjective 24 Hr Interval Summary Subjective hx not possible: pt non-verbal Exam/Review of Systems Exam Vitals Vital Signs Date Temp Pulse Resp B/P (MAP) Pulse Ox O2 O2 Flow FiO2 Time Delivery Rate 10/13/18 98.1 94 20 119/58 99 Mechanical 11:30 (78) Ventilator 10/13/18 30 08:11 Intake and Output 10/12/18 10/12/18 10/13/18 1515:00 23:00 07:00 IntakeIntake Total 510 ml 550 ml 920 ml OutputOutput Total 1600 ml 1250 ml BalanceBalance 510 ml -1050 ml -330 ml Constitutional: non-verbal Respiratory: clear to auscultation Cardiovascular: regular rate and rhythm Gastrointestinal: soft; No distended Musculoskeletal: nl extremities to inspection Medications Medication Current Medications IV Flush (NS 3 ml) 3 ml PER PROTOCOL IV ; Start 10/02/18 at 13:30 Hydromorphone HCl (Dilaudid) 0.5 mg Q4H PRN IV .SEVERE PAIN 7-10 Last administered on 10/05/18at 12:55; Admin Dose 0.5 MG; Start 10/02/18 at 13:30 Levothyroxine Sodium (Synthroid) 50 mcg BEFORE BREAKFAST GTB Last administered on 10/13/18at 05:10; Admin Dose 50 MCG; Start 10/03/18 at 07:00 Tramadol HCl (Ultram) 50 mg BID PEG Last administered on 10/13/18 09:00; Admin Dose 50 MG; Start 10/03/18 at 21:00 Potassium Chloride (Potassium Chloride Pwd/Soln) 40 meq DAILY GTB Last administered on 10/13/18 09:00; Admin Dose 40 MEQ; Start 10/04/18 at 18:00 Vancomycin HCl (Vancomycin Oral Syringe) 125 mg Q6 GTB Last administered on 10/13/18 12:30; Admin Dose 125 MG; Start 10/05/18 at 00:00 Famotidine (Pepcid) 20 mg HS GTB Last administered on 10/12/18 21:37; Admin Dose 20 MG; Start 10/04/18 at 21:00 Metoprolol Succinate (Toprol Xl) 25 mg DAILY PO Last administered on 10/13/18 08:59; Admin Dose 25 MG; Start 10/06/18 at 09:30 Amiodarone HCl (Cordarone) 400 mg BID PO Last administered on 10/13/18 08:59; Admin Dose 400 MG; Start 10/07/18 at 10:30 Multivitamins (Multivitamin) 30 ml DAILY GTB Last administered on 10/13/18 09:00; Admin Dose 30 ML; Start 10/12/18 at 09:00 Ascorbic Acid (Vitamin C) 500 mg BID GTB Last administered on 10/13/18 08:59; Admin Dose 500 MG; Start 10/11/18 at 21:00; Stop 10/21/18 at 20:59 Zinc Sulfate (Zinc Sulfate) 220 mg DAILY GTB Last administered on 10/13/18 08:59; Admin Dose 220 MG; Start 10/12/18 at 09:00; Stop 10/22/18 at 08:59 TANIYA LOVE Oct 13, 2018 13:09
--- NOTE | 2018-10-13 14:20 | CONS ---
Assessment/Plan Assessment/Plan Hospital Course (Demo Recall) No acute events overnight, looks comfortable, no fevers Indwelling: Trach PEG [place] Antimicrobials: Oral vancomycin Physical examination: Well-developed chronically ill-appearing elderly man who is in no distress. Head atraumatic normocephalic neck is supple tracheostomy present chest rise symmetrical breath sounds diminished bases. Heart: S1-S2. Abdomen soft bowel sounds present. Assessment: 1. Status post sepsis 2. C. difficile colitis 3. S/p urinary tract infection 4. Paroxysmal atrial fibrillation on admission 5. Cardiomyopathy 6. Chronic encephalopathy 7. Right lower extremity DVT Plan: Stable, continue present care Consultation Date/Type/Reason Admit Date/Time Oct 02, 2018 at 12:38 Initial Consult Date 10/06/18 Type of Consult id Requesting Provider: VIRGIE WOLF Date/Time of Note DATE: 10/13/18 TIME: 14:19 Exam/Review of Systems Exam Vitals Vital Signs Date Temp Pulse Resp B/P (MAP) Pulse Ox O2 O2 Flow FiO2 Time Delivery Rate 10/13/18 30 12:00 10/13/18 98.1 94 20 119/58 99 Mechanical 11:30 (78) Ventilator Intake and Output 10/12/18 10/12/18 10/13/18 1414:59 22:59 06:59 IntakeIntake Total 510 ml 550 ml 920 ml OutputOutput Total 1600 ml 1250 ml BalanceBalance 510 ml -1050 ml -330 ml Results Result Diagram: 10/12/18 0457 10/12/18 0455 Medications Medication Current Medications IV Flush (NS 3 ml) 3 ml PER PROTOCOL IV ; Start 10/02/18 at 13:30 Hydromorphone HCl (Dilaudid) 0.5 mg Q4H PRN IV .SEVERE PAIN 7-10 Last administered on 10/05/18at 12:55; Admin Dose 0.5 MG; Start 10/02/18 at 13:30 Levothyroxine Sodium (Synthroid) 50 mcg BEFORE BREAKFAST GTB Last administered on 10/13/18at 05:10; Admin Dose 50 MCG; Start 10/03/18 at 07:00 Tramadol HCl (Ultram) 50 mg BID PEG Last administered on 10/13/18at 09:00; Admin Dose 50 MG; Start 10/03/18 at 21:00 Potassium Chloride (Potassium Chloride Pwd/Soln) 40 meq DAILY GTB Last administered on 10/13/18 09:00; Admin Dose 40 MEQ; Start 10/04/18 at 18:00 Vancomycin HCl (Vancomycin Oral Syringe) 125 mg Q6 GTB Last administered on 10/13/18 12:30; Admin Dose 125 MG; Start 10/05/18 at 00:00 Famotidine (Pepcid) 20 mg HS GTB Last administered on 10/12/18 21:37; Admin Dose 20 MG; Start 10/04/18 at 21:00 Metoprolol Succinate (Toprol Xl) 25 mg DAILY PO Last administered on 10/13/18 08:59; Admin Dose 25 MG; Start 10/06/18 at 09:30 Amiodarone HCl (Cordarone) 400 mg BID PO Last administered on 10/13/18 08:59; Admin Dose 400 MG; Start 10/07/18 at 10:30 Multivitamins (Multivitamin) 30 ml DAILY GTB Last administered on 10/13/18 09:00; Admin Dose 30 ML; Start 10/12/18 at 09:00 Ascorbic Acid (Vitamin C) 500 mg BID GTB Last administered on 10/13/18 08:59; Admin Dose 500 MG; Start 10/11/18 at 21:00; Stop 10/21/18 at 20:59 Zinc Sulfate (Zinc Sulfate) 220 mg DAILY GTB Last administered on 10/13/18 08:59; Admin Dose 220 MG; Start 10/12/18 at 09:00; Stop 10/22/18 at 08:59 FITO ALEXANDER NP Oct 13, 2018 14:20
--- NOTE | 2018-10-13 16:37 | CONS ---
Consult Date/Type/Reason Admit Date/Time Oct 02, 2018 at 12:38 Initial Consult Date 10/06/18 Type of Consult Pulmonary Requesting Provider: VIRGIE WOLF Date/Time of Note DATE: 10/13/18 TIME: 16:36 Subjective Patient appears comfortable no respiratory distress. Objective Vital Signs Date Temp Pulse Resp B/P (MAP) Pulse Ox O2 O2 Flow FiO2 Time Delivery Rate 10/13/18 30 16:20 10/13/18 Mechanical 16:20 Ventilator 10/13/18 97.9 99 20 130/68 100 15:20 (88) Intake and Output 10/12/18 10/12/18 10/13/18 1515:00 23:00 07:00 IntakeIntake Total 510 ml 550 ml 920 ml OutputOutput Total 1600 ml 1250 ml BalanceBalance 510 ml -1050 ml -330 ml Exam GENERAL: Ill-appearing gentleman on mechanical ventilation via tracheostomy VITAL SIGNS: per chart NECK: Supple. No JVD or lymphadenopathy. CARDIAC EXAM: S1, S2. No added sounds or murmurs. CHEST: Diminished air entry bilaterally ABDOMEN: Soft, nontender. No guarding or rebound. EXTREMITIES: No cyanosis, clubbing or edema. NEUROLOGIC: Generalized weakness. No focal deficits. Vent Setting Ventilator Support Mode: AC Fraction of Inspired Oxygen pe: 30 Positive End Expiratory Pressu: 50.0 Results/Medications Result Diagram: 10/12/18 0457 10/12/18 0455 Medications Current Medications IV Flush (NS 3 ml) 3 ml PER PROTOCOL IV ; Start 10/02/18 at 13:30 Hydromorphone HCl (Dilaudid) 0.5 mg Q4H PRN IV .SEVERE PAIN 7-10 Last administered on 10/05/18at 12:55; Admin Dose 0.5 MG; Start 10/02/18 at 13:30 Levothyroxine Sodium (Synthroid) 50 mcg BEFORE BREAKFAST GTB Last administered on 10/13/18at 05:10; Admin Dose 50 MCG; Start 10/03/18 at 07:00 Tramadol HCl (Ultram) 50 mg BID PEG Last administered on 10/13/18 09:00; Admin Dose 50 MG; Start 10/03/18 at 21:00 Potassium Chloride (Potassium Chloride Pwd/Soln) 40 meq DAILY GTB Last administered on 7/3/19at 09:00; Admin Dose 40 MEQ; Start 10/04/18 at 18:00 Vancomycin HCl (Vancomycin Oral Syringe) 125 mg Q6 GTB Last administered on 10/13/18 12:30; Admin Dose 125 MG; Start 10/05/18 at 00:00 Famotidine (Pepcid) 20 mg HS GTB Last administered on 10/12/18 21:37; Admin Dose 20 MG; Start 10/04/18 at 21:00 Metoprolol Succinate (Toprol Xl) 25 mg DAILY PO Last administered on 10/13/18 08:59; Admin Dose 25 MG; Start 10/06/18 at 09:30 Amiodarone HCl (Cordarone) 400 mg BID PO Last administered on 10/13/18 08:59; Admin Dose 400 MG; Start 10/07/18 at 10:30 Multivitamins (Multivitamin) 30 ml DAILY GTB Last administered on 10/13/18 09:00; Admin Dose 30 ML; Start 10/12/18 at 09:00 Ascorbic Acid (Vitamin C) 500 mg BID GTB Last administered on 10/13/18 08:59; Admin Dose 500 MG; Start 10/11/18 at 21:00; Stop 10/21/18 at 20:59 Zinc Sulfate (Zinc Sulfate) 220 mg DAILY GTB Last administered on 10/13/18 08:59; Admin Dose 220 MG; Start 10/12/18 at 09:00; Stop 10/22/18 at 08:59 Assessment/Plan Hospital Course (Demo Recall) IMP: 1. Pseudomonal urinary tract infection. 2. History of brain carcinoma. 3. Ventilator-dependent respiratory failure. 4. Common femoral, superficial vein thrombosis. 5. Anemia 6. C.Diff RECS: 1. Continue vent support. 2. Antibiotics per ID 3. Tube feedings. 4. Follow H/H DC planning Case management note reviewed. ELIOT GALEAS MD, [facility] Oct 13, 2018 16:37
--- NOTE | 2018-10-13 17:35 | CONS ---
Assessment/Plan Assessment/Plan Assessment/Plan (Daily) Reviewed notes from case management family members are appealing the discharge. In view of this I feel that there is no viable possibility that family members will reconsider patient's CODE STATUS. However I will ask social work service to schedule conference once again and give patient options once again. My impressions are that there are are avoiding the conversation. Consultation Date/Type/Reason Admit Date/Time Oct 02, 2018 at 12:38 Date/Time of Note DATE: 10/13/18 TIME: 17:35 Past Medical History Home Meds Active Scripts Metoprolol Succinate* (Toprol XL*) 25 Mg Tab.sr.24h, 25 MG PO DAILY, #60 Prov:TANIYA LOVE 10/11/18 Amiodarone Hcl* (Amiodarone Hcl*) 200 Mg Tablet, 400 MG PO BID, #60 TAB Prov:TANIYA LOVE 10/11/18 [Vancomycin Oral Syringe] 50 MG/ML SOLN No Conflict Check, 125 MG GTB Q6 for 4 Days, #16 Prov:TANIYA LOVE 10/11/18 Reported Medications Tramadol Hcl* (Ultram*) 50 Mg Tablet, 50 MG GTB BID PRN for PAIN MANAGEMENT, TAB 10/02/18 Magnesium Hydroxide* (Milk Of Magnesia*) 400 Mg/5 Ml Oral.susp, 30 ML GTB DAILY, ML 10/02/18 Magaldrate/Simethicone* (Mag-Al Plus Suspension*) 30 Ml Oral.susp, 30 ML GTB Q4 PRN for GASTROINTESTINAL UPSET, ML 10/02/18 Ondansetron Hcl* (Zofran*) 4 Mg Tablet, 4 MG GTB Q6H PRN for NAUSEA AND OR VOMITING, TAB 10/02/18 Pantoprazole Sodium (Protonix) 40 Mg Granpkt.dr, 40 MG GTB DAILY MIX CONTENTS WITH APPLE SAUCE THEN FLUSH WITH 30ML APPLE JUICE 10/02/18 Levothyroxine Sodium* (Levoxyl*) 50 Mcg Tablet, 50 MCG GTB BEFORE BREAKFAST, #30 TAB 10/02/18 Polyvinyl Alcohol (Tears Again) 15 Ml Drops, 1 DRP BOTH EYES TID, BOTTLE 10/02/18 Atorvastatin* (Atorvastatin*) 40 Mg Tablet, 40 MG GTB QHS, #30 TAB 10/02/18 Acetaminophen* (Acetaminophen*) 650 Mg Tablet, 650 MG GTB Q4 PRN for MILD PAIN LEVEL 1-3, #30 TAB FOR FEVER AND TRACH CHANGE 10/02/18 Acetaminophen* (Acetaminophen*) 500 MG Extra Strength Tablet, 1000 MG GTB Q4 PRN for MODERATE PAIN LEVEL 4-6, TAB 10/02/18 Zinc Sulfate* (Zinc Sulfate*) 220 Mg Cap, 220 MG GTB DAILY, CAP 10/02/18 Ascorbic Acid* (Vitamin C*) 500 Mg Capsule.sa, 500 MG GTB DAILY, CAP 10/02/18 Multivitamin with Minerals (Daily Vitamin Formula-Minerals) 1 Each Tablet, 1 EACH GTB DAILY, TAB 10/02/18 Amino Acids/Protein Hydrolys (Pro-Stat Awc Liquid) 30 Ml Liquid, 30 ML GTB DAILY SUGAR FREE 10/02/18 Na Phos,M-B/Na Phos,Di-Ba (ENEMA [id number]) 133 Ml Enema, 133 ML RC EVERY 2 DAYS PRN for CONSTIPATION, ENEMA 10/02/18 Bisacodyl (Dulcolax) 10 Mg Supp.rect, 10 MG RC DAILY PRN for CONSTIPATION, SUPP.RECT 10/02/18 Docusate Sodium* (Colace*) 100 Mg Capsule, 100 MG GTB BID, #60 CAP 10/02/18 Discontinued Reported Medications Metoprolol Tartrate* (Lopressor*) 25 Mg Tab, 25 MG GTB Q8, #60 TAB HOLD FOR SBP <110 OR HR<60 10/02/18 Aspirin* (Aspirin*) 325 Mg Tablet, 325 MG GTB DAILY, TAB 10/02/18 Lactobacillus Acidophilus/Pect (Acidophilus-Pectin Capsule) 1 Each Capsule, 1 EACH GTB DAILY, CAP 10/02/18 Medications Current Medications IV Flush (NS 3 ml) 3 ml PER PROTOCOL IV ; Start 10/02/18 at 13:30 Hydromorphone HCl (Dilaudid) 0.5 mg Q4H PRN IV .SEVERE PAIN 7-10 Last administered on 10/05/18at 12:55; Admin Dose 0.5 MG; Start 10/02/18 at 13:30 Levothyroxine Sodium (Synthroid) 50 mcg BEFORE BREAKFAST GTB Last administered on 10/13/18at 05:10; Admin Dose 50 MCG; Start 10/03/18 at 07:00 Tramadol HCl (Ultram) 50 mg BID PEG Last administered on 10/13/18 09:00; Admin Dose 50 MG; Start 10/03/18 at 21:00 Potassium Chloride (Potassium Chloride Pwd/Soln) 40 meq DAILY GTB Last administered on 10/13/18 09:00; Admin Dose 40 MEQ; Start 10/04/18 at 18:00 Vancomycin HCl (Vancomycin Oral Syringe) 125 mg Q6 GTB Last administered on 10/13/18 12:30; Admin Dose 125 MG; Start 10/05/18 at 00:00 Famotidine (Pepcid) 20 mg HS GTB Last administered on 10/12/18 21:37; Admin Dose 20 MG; Start 10/04/18 at 21:00 Metoprolol Succinate (Toprol Xl) 25 mg DAILY PO Last administered on 10/13/18 08:59; Admin Dose 25 MG; Start 10/06/18 at 09:30 Amiodarone HCl (Cordarone) 400 mg BID PO Last administered on 10/13/18 08:59; Admin Dose 400 MG; Start 10/07/18 at 10:30 Multivitamins (Multivitamin) 30 ml DAILY GTB Last administered on 10/13/18 09:00; Admin Dose 30 ML; Start 10/12/18 at 09:00 Ascorbic Acid (Vitamin C) 500 mg BID GTB Last administered on 10/13/18 08:59; Admin Dose 500 MG; Start 10/11/18 at 21:00; Stop 10/21/18 at 20:59 Zinc Sulfate (Zinc Sulfate) 220 mg DAILY GTB Last administered on 10/13/18 08:59; Admin Dose 220 MG; Start 10/12/18 at 09:00; Stop 10/22/18 at 08:59 Allergies: Coded Allergies: No Known Allergy (Unverified , 10/02/18) Past Surgical History Past Surgical Hx: no surgical history Social History Alcohol Use: none Smoking Status: Unknown if ever smoked Drug Use: none Exam/Review of Systems Exam Vitals Vital Signs Date Temp Pulse Resp B/P (MAP) Pulse Ox O2 O2 Flow FiO2 Time Delivery Rate 10/13/18 30 16:20 10/13/18 Mechanical 16:20 Ventilator 10/13/18 97.9 99 20 130/68 100 15:20 (88) Intake and Output 10/12/18 10/12/18 10/13/18 1515:00 23:00 07:00 IntakeIntake Total 510 ml 550 ml 920 ml OutputOutput Total 1600 ml 1250 ml BalanceBalance 510 ml -1050 ml -330 ml Results Result Diagram: 10/12/18 0457 10/12/18 0455 Medications Medication Current Medications IV Flush (NS 3 ml) 3 ml PER PROTOCOL IV ; Start 10/02/18 at 13:30 Hydromorphone HCl (Dilaudid) 0.5 mg Q4H PRN IV .SEVERE PAIN 7-10 Last administered on 10/05/18 12:55; Admin Dose 0.5 MG; Start 10/02/18 at 13:30 Levothyroxine Sodium (Synthroid) 50 mcg BEFORE BREAKFAST GTB Last administered on 10/13/18 05:10; Admin Dose 50 MCG; Start 10/03/18 at 07:00 Tramadol HCl (Ultram) 50 mg BID PEG Last administered on 10/13/18 09:00; Admin Dose 50 MG; Start 10/03/18 at 21:00 Potassium Chloride (Potassium Chloride Pwd/Soln) 40 meq DAILY GTB Last administered on 10/13/18 09:00; Admin Dose 40 MEQ; Start 10/04/18 at 18:00 Vancomycin HCl (Vancomycin Oral Syringe) 125 mg Q6 GTB Last administered on 10/13/18 12:30; Admin Dose 125 MG; Start 10/05/18 at 00:00 Famotidine (Pepcid) 20 mg HS GTB Last administered on 10/12/18 21:37; Admin Dose 20 MG; Start 10/04/18 at 21:00 Metoprolol Succinate (Toprol Xl) 25 mg DAILY PO Last administered on 10/13/18 08:59; Admin Dose 25 MG; Start 10/06/18 at 09:30 Amiodarone HCl (Cordarone) 400 mg BID PO Last administered on 10/13/18 08:59; Admin Dose 400 MG; Start 10/07/18 at 10:30 Multivitamins (Multivitamin) 30 ml DAILY GTB Last administered on 10/13/18 09:00; Admin Dose 30 ML; Start 10/12/18 at 09:00 Ascorbic Acid (Vitamin C) 500 mg BID GTB Last administered on 10/13/18at 08:59; Admin Dose 500 MG; Start 10/11/18 at 21:00; Stop 10/21/18 at 20:59 Zinc Sulfate (Zinc Sulfate) 220 mg DAILY GTB Last administered on 10/13/18at 08:59; Admin Dose 220 MG; Start 10/12/18 at 09:00; Stop 10/22/18 at 08:59 REMA STEINER Oct 13, 2018 17:35
[2018-10-13] MEDS: FAMOTIDINE 20 MG TAB GTB SCH (22:06)
[2018-10-14] VITALS (17 sets, daily range): BP systolic 107–133; BP diastolic 60–73; PULSE 92–102; RESP 12–22
[2018-10-14] MEDS: VANCOMYCIN HCL 250 MG/5ML POSYG GTB SCH ×4 (02:15→19:23)
[2018-10-14] MEDS: LEVOTHYROXINE 50 MCG TAB GTB SCH (06:08)
--- NOTE | 2018-10-14 08:49 | CONS ---
Assessment/Plan Assessment/Plan Hospital Course (Demo Recall) Paroxysmal atrial fibrillation: Now converted on amiodarone. Was on heparin due to DVT but now on hold due to head CT findings DVT: right femoral. On heparin, but head CT with multiple abnormalities. If not an anticoagulation candidate, can consider IVC filter though at that point, should have goals of care discussion with family Cardiomyopathy: EF 35%, ?etiology. Not a candidate for evaluation UTI C diff colitis Sepsis Chronic VDRF Brain tumor Chronic encephalopathy -change to amiodarone 200mg BID until 10/21, then 200mg daily -metoprolol succinate 25mg as tolerated -antibiotics per ID -otherwise ok for placement Consultation Date/Type/Reason Admit Date/Time Oct 02, 2018 at 12:38 Initial Consult Date 10/06/18 Type of Consult Cardiology Requesting Provider: VIRGIE WOLF Date/Time of Note DATE: 10/14/18 TIME: 08:48 24 HR Interval Summary Free Text/Dictation No events. Exam/Review of Systems Vital Signs Vitals Vital Signs Date Temp Pulse Resp B/P (MAP) Pulse Ox O2 O2 Flow FiO2 Time Delivery Rate 10/14/18 30 08:05 10/14/18 99.4 97 20 119/65 100 Mechanical 07:40 (83) Ventilator Intake and Output 10/13/18 10/13/18 10/14/18 1414:59 22:59 06:59 IntakeIntake Total 510 ml 690 ml 1080 ml OutputOutput Total 1400 ml 1000 ml BalanceBalance 510 ml -710 ml 80 ml Exam Constitutional: No alert, No oriented Neck: No jvd Respiratory: diminished breath sounds; No clear to auscultation Cardiovascular: regular rate and rhythm, edema (trace); No systolic murmur Gastrointestinal: soft, non-tender; No distended Neurological: No nl mental status, No nl speech Labs Result Diagram: 10/12/18 0457 10/12/18 0455 Medications Medications Current Medications IV Flush (NS 3 ml) 3 ml PER PROTOCOL IV ; Start 10/02/18 at 13:30 Hydromorphone HCl (Dilaudid) 0.5 mg Q4H PRN IV .SEVERE PAIN 7-10 Last administered on 10/05/18at 12:55; Admin Dose 0.5 MG; Start 10/02/18 at 13:30 Levothyroxine Sodium (Synthroid) 50 mcg BEFORE BREAKFAST GTB Last administered on 10/14/18 06:08; Admin Dose 50 MCG; Start 10/03/18 at 07:00 Tramadol HCl (Ultram) 50 mg BID PEG Last administered on 10/13/18 22:06; Admin Dose 50 MG; Start 10/03/18 at 21:00 Potassium Chloride (Potassium Chloride Pwd/Soln) 40 meq DAILY GTB Last administered on 10/13/18 09:00; Admin Dose 40 MEQ; Start 10/04/18 at 18:00 Vancomycin HCl (Vancomycin Oral Syringe) 125 mg Q6 GTB Last administered on 10/14/18 06:08; Admin Dose 125 MG; Start 10/05/18 at 00:00 Famotidine (Pepcid) 20 mg HS GTB Last administered on 10/13/18 22:06; Admin Dose 20 MG; Start 10/04/18 at 21:00 Metoprolol Succinate (Toprol Xl) 25 mg DAILY PO Last administered on 10/13/18 08:59; Admin Dose 25 MG; Start 10/06/18 at 09:30 Amiodarone HCl (Cordarone) 400 mg BID PO Last administered on 10/13/18 22:07; Admin Dose 400 MG; Start 10/07/18 at 10:30 Multivitamins (Multivitamin) 30 ml DAILY GTB Last administered on 10/13/18 09:00; Admin Dose 30 ML; Start 10/12/18 at 09:00 Ascorbic Acid (Vitamin C) 500 mg BID GTB Last administered on 10/13/18 22:06; Admin Dose 500 MG; Start 10/11/18 at 21:00; Stop 10/21/18 at 20:59 Zinc Sulfate (Zinc Sulfate) 220 mg DAILY GTB Last administered on 10/13/18 08:59; Admin Dose 220 MG; Start 10/12/18 at 09:00; Stop 10/22/18 at 08:59 FRED BERGER Oct 14, 2018 08:49
[2018-10-14] MEDS: POTASSIUM CHLORIDE 20 MEQ POWDER FOR ORAL SOLN GTB SCH (09:05)
[2018-10-14] MEDS: MULTIVITAMINS 30 ML CUP GTB SCH (09:05)
[2018-10-14] MEDS: AMIODARONE 200 MG TAB PO SCH ×2 (09:06→21:21)
[2018-10-14] MEDS: ZINC SULFATE 220 MG CAP GTB SCH (09:06)
[2018-10-14] MEDS: METOPROLOL (XL) 25 MG TAB PO SCH (09:06)
[2018-10-14] MEDS: ASCORBIC ACID 500 MG TAB GTB SCH ×2 (09:07→21:19)
[2018-10-14] MEDS: BALSAM PERU/CASTOR OIL 60 GM TUBE TOP SCH (09:07)
[2018-10-14] MEDS: traMADol 50 MG TAB PEG SCH ×2 (09:07→21:19)
--- NOTE | 2018-10-14 12:11 | CONS ---
Assessment/Plan Assessment/Plan Hospital Course (Demo Recall) ID PROGRESS NOTE CURRENT ABX: DAY # 9 =>VAnco liquid via GT 10/12/187 10/12/18454 24H INTERVAL SUMMARY * Elderly M, in process of bed bath, low grade temps, VSS, NAD on the Vent * : Trach PEG Mcintyre * 10/05/18 Urine Cx (-) * 10/02/18 Urine URINE CULTURE Final Organism 1 PSEUDOMONAS AERUGINOSA COLONY COUNT 20,000 - 30,000 CFU/ml DIAGNOSTIC IMAGING * 10/02/18 CXR: 1. Tracheostomy as above.2. The lungs are grossly clear.3. Nondisplaced fracture involving the distal right clavicle of uncertain acuity. PHYSICAL EXAMINATION: GENERAL: VSS, NAD HEENT: AT, NC, Trach secure NECK: Supple, CHEST: Rise symmetrical - vented HEART: Pulse RRR ABDOMEN: Peg EXTREMITIES: Warm, dry SKIN: No rash, no diaphoresis ID ASSESSMENT 82 yo M admit with: 1. Status post sepsis 2. C. difficile colitis 3. S/p urinary tract infection 4. Chronic resp failure - Ventilator dependent 5. Paroxysmal atrial fibrillation on admission 6. Cardiomyopathy 7. Chronic encephalopathy 8. Right lower extremity DVT ABX ALLERGIES: KNDA INVASIVES: PIV CURRENT ABX: DAY # 9 =>VAnco liquid via GT ID RECOMMENDATIONS/PLAN: 1. Continue current ABX -- Await WBC to normalize and diarrhea to improve 2. Adding Flagyl due to persistent diarrhea . Consultation Date/Type/Reason Admit Date/Time Oct 02, 2018 at 12:38 Initial Consult Date 10/06/18 Requesting Provider: VIRGIE WOLF Date/Time of Note DATE: 10/14/18 TIME: 12:11 Exam/Review of Systems Exam Vitals Vital Signs Date Temp Pulse Resp B/P (MAP) Pulse Ox O2 O2 Flow FiO2 Time Delivery Rate 10/14/18 80 15 100 30 11:30 10/14/18 97.8 115/73 Mechanical 11:03 (87) Ventilator Intake and Output 10/13/18 10/13/18 10/14/18 1515:00 23:00 07:00 IntakeIntake Total 510 ml 690 ml 1080 ml OutputOutput Total 1400 ml 1000 ml BalanceBalance 510 ml -710 ml 80 ml Results Result Diagram: 10/12/1845610/12/18454 Medications Medication Current Medications IV Flush (NS 3 ml) 3 ml PER PROTOCOL IV ; Start 10/02/18 at 13:30 Hydromorphone HCl (Dilaudid) 0.5 mg Q4H PRN IV .SEVERE PAIN 7-10 Last administered on 10/05/18 12:55; Admin Dose 0.5 MG; Start 10/02/18 at 13:30 Levothyroxine Sodium (Synthroid) 50 mcg BEFORE BREAKFAST GTB Last administered on 10/14/18 06:08; Admin Dose 50 MCG; Start 10/03/18 at 07:00 Tramadol HCl (Ultram) 50 mg BID PEG Last administered on 10/14/18 09:07; Admin Dose 50 MG; Start 10/03/18 at 21:00 Potassium Chloride (Potassium Chloride Pwd/Soln) 40 meq DAILY GTB Last administered on 10/14/18 09:05; Admin Dose 40 MEQ; Start 10/04/18 at 18:00 Vancomycin HCl (Vancomycin Oral Syringe) 125 mg Q6 GTB Last administered on 10/14/18 11:36; Admin Dose 125 MG; Start 10/05/18 at 00:00 Famotidine (Pepcid) 20 mg HS GTB Last administered on 10/13/18 22:06; Admin Dose 20 MG; Start 10/04/18 at 21:00 Metoprolol Succinate (Toprol Xl) 25 mg DAILY PO Last administered on 10/14/18 09:06; Admin Dose 25 MG; Start 10/06/18 at 09:30 Multivitamins (Multivitamin) 30 ml DAILY GTB Last administered on 10/14/18 09:05; Admin Dose 30 ML; Start 10/12/18 at 09:00 Ascorbic Acid (Vitamin C) 500 mg BID GTB Last administered on 10/14/18 09:07; Admin Dose 500 MG; Start 10/11/18 at 21:00; Stop 10/21/18 at 20:59 Zinc Sulfate (Zinc Sulfate) 220 mg DAILY GTB Last administered on 10/14/18 09:06; Admin Dose 220 MG; Start 10/12/18 at 09:00; Stop 10/22/18 at 08:59 Amiodarone HCl (Cordarone) 200 mg BID PO Last administered on 7/4/19at 09:06; Admin Dose 200 MG; Start 10/14/18 at 09:00 MARGARITA VARELA NP Oct 14, 2018 12:11
--- NOTE | 2018-10-14 12:22 | PN ---
Date/Time of Note Date/Time of Note DATE: 10/14/18 TIME: 12:21 Assessment/Plan VTE Prophylaxis Risk score (from Nsg)>0 risk: 11 Pharmacological prophylaxis: NA/contraindicated Pharm contraindication: other Lines/Catheters IV Catheter Type (from Nrsg): Saline Lock Assessment/Plan Hospital Course 82 yo male with reported history of brain neoplasm though details unknown, chronic encephalopathy and respiratory failure on MV via trach with PEG who presented form [facility] with sepsis. Found to have extensive DVT and C Diff C Diff: - Continue treatment per ID UTI causing sepsis: - Continue antibiotics per ID DVT: - We are holding AC for now given brain tumor Chronic respiratory failure: - Continue MV via trach Brain neoplasm with chronic encephalopathy - Will discuss goals of care - Unclear baseline Full code for now though dismal prognosis. Hospice would be appropriate, family refusing [facility] placement and have appealed discharge Result Diagram: 10/12/1845610/12/18454 Subjective 24 Hr Interval Summary Subjective hx not possible: pt non-verbal Exam/Review of Systems Exam Vitals Vital Signs Date Temp Pulse Resp B/P (MAP) Pulse Ox O2 O2 Flow FiO2 Time Delivery Rate 10/14/18 80 15 100 30 11:30 10/14/18 97.8 115/73 Mechanical 11:03 (87) Ventilator Intake and Output 10/13/18 10/13/18 10/14/18 1515:00 23:00 07:00 IntakeIntake Total 510 ml 690 ml 1080 ml OutputOutput Total 1400 ml 1000 ml BalanceBalance 510 ml -710 ml 80 ml Constitutional: non-verbal Respiratory: clear to auscultation Cardiovascular: regular rate and rhythm Gastrointestinal: soft; No distended Musculoskeletal: nl extremities to inspection Medications Medication Current Medications IV Flush (NS 3 ml) 3 ml PER PROTOCOL IV ; Start 10/02/18 at 13:30 Hydromorphone HCl (Dilaudid) 0.5 mg Q4H PRN IV .SEVERE PAIN 7-10 Last administered on 10/05/18at 12:55; Admin Dose 0.5 MG; Start 10/02/18 at 13:30 Levothyroxine Sodium (Synthroid) 50 mcg BEFORE BREAKFAST GTB Last administered on 10/14/18at 06:08; Admin Dose 50 MCG; Start 10/03/18 at 07:00 Tramadol HCl (Ultram) 50 mg BID PEG Last administered on 10/14/18 09:07; Admin Dose 50 MG; Start 10/03/18 at 21:00 Potassium Chloride (Potassium Chloride Pwd/Soln) 40 meq DAILY GTB Last administered on 10/14/18 09:05; Admin Dose 40 MEQ; Start 10/04/18 at 18:00 Vancomycin HCl (Vancomycin Oral Syringe) 125 mg Q6 GTB Last administered on 10/14/18 11:36; Admin Dose 125 MG; Start 10/05/18 at 00:00 Famotidine (Pepcid) 20 mg HS GTB Last administered on 10/13/18 22:06; Admin Dose 20 MG; Start 10/04/18 at 21:00 Metoprolol Succinate (Toprol Xl) 25 mg DAILY PO Last administered on 10/14/18 09:06; Admin Dose 25 MG; Start 10/06/18 at 09:30 Multivitamins (Multivitamin) 30 ml DAILY GTB Last administered on 10/14/18 09:05; Admin Dose 30 ML; Start 10/12/18 at 09:00 Ascorbic Acid (Vitamin C) 500 mg BID GTB Last administered on 10/14/18 09:07; Admin Dose 500 MG; Start 10/11/18 at 21:00; Stop 10/21/18 at 20:59 Zinc Sulfate (Zinc Sulfate) 220 mg DAILY GTB Last administered on 10/14/18 09:06; Admin Dose 220 MG; Start 10/12/18 at 09:00; Stop 10/22/18 at 08:59 Amiodarone HCl (Cordarone) 200 mg BID PO Last administered on 10/14/18 09:06; Admin Dose 200 MG; Start 10/14/18 at 09:00 TANIYA LOVE Oct 14, 2018 12:22
--- NOTE | 2018-10-14 14:33 | CONS ---
Consult Date/Type/Reason Admit Date/Time Oct 02, 2018 at 12:38 Initial Consult Date 10/06/18 Type of Consultation: Pulm Requesting Provider: VIRGIE WOLF Date/Time of Note DATE: 10/14/18 TIME: 14:31 Subjective No events. Stable on MV. Objective Vitals Vital Signs Date Temp Pulse Resp B/P (MAP) Pulse Ox O2 O2 Flow FiO2 Time Delivery Rate 10/14/18 80 15 100 30 11:30 10/14/18 97.8 115/73 Mechanical 11:03 (87) Ventilator Intake and Output 10/13/18 10/13/18 10/14/18 1515:00 23:00 07:00 IntakeIntake Total 510 ml 690 ml 1080 ml OutputOutput Total 1400 ml 1000 ml BalanceBalance 510 ml -710 ml 80 ml Exam GENERAL: Ill-appearing gentleman on mechanical ventilation via tracheostomy VITAL SIGNS: per chart NECK: Supple. No JVD or lymphadenopathy. CARDIAC EXAM: S1, S2. No added sounds or murmurs. CHEST: Diminished air entry bilaterally ABDOMEN: Soft, nontender. No guarding or rebound. EXTREMITIES: No cyanosis, clubbing or edema. NEUROLOGIC: Generalized weakness. No focal deficits. Results/Medications Result Diagram: 10/12/187 10/12/18 0455 Home Meds Active Scripts Metoprolol Succinate* (Toprol XL*) 25 Mg Tab.sr.24h, 25 MG PO DAILY, #60 Prov:TANIYA LOVE 10/11/18 Amiodarone Hcl* (Amiodarone Hcl*) 200 Mg Tablet, 400 MG PO BID, #60 TAB Prov:TANIYA LOVE 10/11/18 [Vancomycin Oral Syringe] 50 MG/ML SOLN No Conflict Check, 125 MG GTB Q6 for 4 Days, #16 Prov:TANIYA LOVE 10/11/18 Reported Medications Tramadol Hcl* (Ultram*) 50 Mg Tablet, 50 MG GTB BID PRN for PAIN MANAGEMENT, TAB 10/02/18 Magnesium Hydroxide* (Milk Of Magnesia*) 400 Mg/5 Ml Oral.susp, 30 ML GTB DAILY, ML 10/02/18 Magaldrate/Simethicone* (Mag-Al Plus Suspension*) 30 Ml Oral.susp, 30 ML GTB Q4 PRN for GASTROINTESTINAL UPSET, ML 10/02/18 Ondansetron Hcl* (Zofran*) 4 Mg Tablet, 4 MG GTB Q6H PRN for NAUSEA AND OR VOMITING, TAB 10/02/18 Pantoprazole Sodium (Protonix) 40 Mg Granpkt.dr, 40 MG GTB DAILY MIX CONTENTS WITH APPLE SAUCE THEN FLUSH WITH 30ML APPLE JUICE 10/02/18 Levothyroxine Sodium* (Levoxyl*) 50 Mcg Tablet, 50 MCG GTB BEFORE BREAKFAST, #30 TAB 10/02/18 Polyvinyl Alcohol (Tears Again) 15 Ml Drops, 1 DRP BOTH EYES TID, BOTTLE 10/02/18 Atorvastatin* (Atorvastatin*) 40 Mg Tablet, 40 MG GTB QHS, #30 TAB 10/02/18 Acetaminophen* (Acetaminophen*) 650 Mg Tablet, 650 MG GTB Q4 PRN for MILD PAIN LEVEL 1-3, #30 TAB FOR FEVER AND TRACH CHANGE 10/02/18 Acetaminophen* (Acetaminophen*) 500 MG Extra Strength Tablet, 1000 MG GTB Q4 PRN for MODERATE PAIN LEVEL 4-6, TAB 10/02/18 Zinc Sulfate* (Zinc Sulfate*) 220 Mg Cap, 220 MG GTB DAILY, CAP 10/02/18 Ascorbic Acid* (Vitamin C*) 500 Mg Capsule.sa, 500 MG GTB DAILY, CAP 10/02/18 Multivitamin with Minerals (Daily Vitamin Formula-Minerals) 1 Each Tablet, 1 EACH GTB DAILY, TAB 10/02/18 Amino Acids/Protein Hydrolys (Pro-Stat Awc Liquid) 30 Ml Liquid, 30 ML GTB DAILY SUGAR FREE 10/02/18 Na Phos,M-B/Na Phos,Di-Ba (ENEMA [id number]) 133 Ml Enema, 133 ML RC EVERY 2 DAYS PRN for CONSTIPATION, ENEMA 10/02/18 Bisacodyl (Dulcolax) 10 Mg Supp.rect, 10 MG RC DAILY PRN for CONSTIPATION, SUPP. RECT 10/02/18 Docusate Sodium* (Colace*) 100 Mg Capsule, 100 MG GTB BID, #60 CAP 10/02/18 Discontinued Reported Medications Metoprolol Tartrate* (Lopressor*) 25 Mg Tab, 25 MG GTB Q8, #60 TAB HOLD FOR SBP <110 OR HR<60 10/02/18 Aspirin* (Aspirin*) 325 Mg Tablet, 325 MG GTB DAILY, TAB 10/02/18 Lactobacillus Acidophilus/Pect (Acidophilus-Pectin Capsule) 1 Each Capsule, 1 EACH GTB DAILY, CAP 10/02/18 Medications Current Medications IV Flush (NS 3 ml) 3 ml PER PROTOCOL IV ; Start 10/02/18 at 13:30 Hydromorphone HCl (Dilaudid) 0.5 mg Q4H PRN IV .SEVERE PAIN 7-10 Last adm inistered on 10/05/18 12:55; Admin Dose 0.5 MG; Start 10/02/18 at 13:30 Levothyroxine Sodium (Synthroid) 50 mcg BEFORE BREAKFAST GTB Last administered on 10/14/18 06:08; Admin Dose 50 MCG; Start 10/03/18 at 07:00 Tramadol HCl (Ultram) 50 mg BID PEG Last administered on 10/14/18 09:07; Admin Dose 50 MG; Start 10/03/18 at 21:00 Potassium Chloride (Potassium Chloride Pwd/Soln) 40 meq DAILY GTB Last administered on 10/14/18 09:05; Admin Dose 40 MEQ; Start 10/04/18 at 18:00 Vancomycin HCl (Vancomycin Oral Syringe) 125 mg Q6 GTB Last administered on 10/14/18 11:36; Admin Dose 125 MG; Start 10/05/18 at 00:00 Famotidine (Pepcid) 20 mg HS GTB Last administered on 10/13/18 22:06; Admin Dose 20 MG; Start 10/04/18 at 21:00 Metoprolol Succinate (Toprol Xl) 25 mg DAILY PO Last administered on 10/14/18 09:06; Admin Dose 25 MG; Start 10/06/18 at 09:30 Multivitamins (Multivitamin) 30 ml DAILY GTB Last administered on 10/14/18 09:05; Admin Dose 30 ML; Start 10/12/18 at 09:00 Ascorbic Acid (Vitamin C) 500 mg BID GTB Last administered on 10/14/18 09:07; Admin Dose 500 MG; Start 10/11/18 at 21:00; Stop 10/21/18 at 20:59 Zinc Sulfate (Zinc Sulfate) 220 mg DAILY GTB Last administered on 10/14/18 09:06; Admin Dose 220 MG; Start 10/12/18 at 09:00; Stop 10/22/18 at 08:59 Amiodarone HCl (Cordarone) 200 mg BID PO Last administered on 10/14/18at 09:06; Admin Dose 200 MG; Start 10/14/18 at 09:00 Assessment/Plan Assessment/Plan (Daily) IMP: 1. Pseudomonal urinary tract infection. 2. History of brain carcinoma. 3. Ventilator-dependent respiratory failure. 4. Common femoral, superficial vein thrombosis. 5. Anemia 6. C.Diff RECS: 1. Continue vent support. 2. Antibiotics per ID 3. Tube feedings. 4. Follow H/H 5. Appreciate input by Palliative Care MIKAEL BLISS MD Oct 14, 2018 14:33
[2018-10-14] MEDS: metroNIDAZOLE 500 MG/NS (PMX) 100 ML IVPB SCH ×2 (19:24→21:18)
[2018-10-14] MEDS: FAMOTIDINE 20 MG TAB GTB SCH (21:21)
[2018-10-15] VITALS (11 sets, daily range): BP systolic 112–127; BP diastolic 55–70; PULSE 93–100; RESP 14–22
[2018-10-15] MEDS: VANCOMYCIN HCL 250 MG/5ML POSYG GTB SCH ×3 (00:12→11:22)
[2018-10-15] MEDS: LEVOTHYROXINE 50 MCG TAB GTB SCH (06:19)
[2018-10-15] MEDS: metroNIDAZOLE 500 MG/NS (PMX) 100 ML IVPB SCH (06:19)
[2018-10-15] MEDS: MULTIVITAMINS 30 ML CUP GTB SCH (08:13)
[2018-10-15] MEDS: POTASSIUM CHLORIDE 20 MEQ POWDER FOR ORAL SOLN GTB SCH (08:13)
[2018-10-15] MEDS: ZINC SULFATE 220 MG CAP GTB SCH (08:13)
[2018-10-15] MEDS: ASCORBIC ACID 500 MG TAB GTB SCH (08:13)
[2018-10-15] MEDS: BALSAM PERU/CASTOR OIL 60 GM TUBE TOP SCH (08:13)
[2018-10-15] MEDS: METOPROLOL (XL) 25 MG TAB PO SCH (08:14)
[2018-10-15] MEDS: AMIODARONE 200 MG TAB PO SCH (08:14)
[2018-10-15] MEDS: traMADol 50 MG TAB PEG SCH (08:44)
--- NOTE | 2018-10-15 10:20 | CONS ---
Assessment/Plan Assessment/Plan Hospital Course (Demo Recall) Paroxysmal atrial fibrillation: Now converted on amiodarone. Was on heparin due to DVT but now on hold due to head CT findings DVT: right femoral. On heparin, but head CT with multiple abnormalities. If not an anticoagulation candidate, can consider IVC filter though at that point, should have goals of care discussion with family Cardiomyopathy: EF 35%, ?etiology. Not a candidate for evaluation UTI C diff colitis Sepsis Chronic VDRF Brain tumor Chronic encephalopathy -amiodarone 200mg BID until 10/21, then 200mg daily -metoprolol succinate 25mg as tolerated -antibiotics per ID -otherwise ok for placement Consultation Date/Type/Reason Admit Date/Time Oct 02, 2018 at 12:38 Initial Consult Date 10/06/18 Type of Consult Cardiology Requesting Provider: VIRGIE WOLF Date/Time of Note DATE: 10/15/18 TIME: 10:19 24 HR Interval Summary Free Text/Dictation No events. Exam/Review of Systems Vital Signs Vitals Vital Signs Date Temp Pulse Resp B/P (MAP) Pulse Ox O2 O2 Flow FiO2 Time Delivery Rate 10/15/18 90 22 98 30 09:32 10/15/18 98.9 127/65 Nasal 08:24 (85) Cannula Intake and Output 10/14/18 10/14/18 10/15/18 1515:00 23:00 07:00 IntakeIntake Total 1180 ml 800 ml OutputOutput Total 1700 ml 850 ml BalanceBalance -520 ml -50 ml Exam Constitutional: No alert, No oriented ENMT: other (s/p trach) Neck: No jvd (unable to assess) Respiratory: diminished breath sounds; No clear to auscultation Cardiovascular: regular rate and rhythm; No edema, No systolic murmur Gastrointestinal: soft; No distended Neurological: No nl mental status, No nl speech Labs Result Diagram: 10/12/187 10/12/18 045 Medications Medications Current Medications IV Flush (NS 3 ml) 3 ml PER PROTOCOL IV ; Start 10/02/18 at 13:30 Hydromorphone HCl (Dilaudid) 0.5 mg Q4H PRN IV .SEVERE PAIN 7-10 Last administered on 10/05/18at 12:55; Admin Dose 0.5 MG; Start 10/02/18 at 13:30 Levothyroxine Sodium (Synthroid) 50 mcg BEFORE BREAKFAST GTB Last administered on 10/15/18 06:19; Admin Dose 50 MCG; Start 10/03/18 at 07:00 Tramadol HCl (Ultram) 50 mg BID PEG Last administered on 10/15/18 08:44; Admin Dose 50 MG; Start 10/03/18 at 21:00 Potassium Chloride (Potassium Chloride Pwd/Soln) 40 meq DAILY GTB Last administered on 10/15/18 08:13; Admin Dose 40 MEQ; Start 10/04/18 at 18:00 Famotidine (Pepcid) 20 mg HS GTB Last administered on 10/14/18 21:21; Admin Dose 20 MG; Start 10/04/18 at 21:00 Metoprolol Succinate (Toprol Xl) 25 mg DAILY PO Last administered on 10/15/18 08:14; Admin Dose 25 MG; Start 10/06/18 at 09:30 Multivitamins (Multivitamin) 30 ml DAILY GTB Last administered on 10/15/18 08:13; Admin Dose 30 ML; Start 10/12/18 at 09:00 Ascorbic Acid (Vitamin C) 500 mg BID GTB Last administered on 10/15/18 08:13; Admin Dose 500 MG; Start 10/11/18 at 21:00; Stop 10/21/18 at 20:59 Zinc Sulfate (Zinc Sulfate) 220 mg DAILY GTB Last administered on 10/15/18 08:13; Admin Dose 220 MG; Start 10/12/18 at 09:00; Stop 10/22/18 at 08:59 Amiodarone HCl (Cordarone) 200 mg BID PO Last administered on 10/15/18 08:14; Admin Dose 200 MG; Start 10/14/18 at 09:00 Vancomycin HCl (Vancomycin Oral Syringe) 250 mg Q6 GTB Last administered on 10/15/18 06:19; Admin Dose 250 MG; Start 10/14/18 at 18:00 Metronidazole 100 ml @ 100 mls/hr Q8 IVPB Last administered on 10/15/18 06:19; Admin Dose 100 MLS/HR; Start 10/14/18 at 18:00 FRED BERGER Oct 15, 2018 10:20
--- NOTE | 2018-10-15 13:09 | PN ---
Date/Time of Note Date/Time of Note DATE: 10/15/18 TIME: 13:08 Assessment/Plan VTE Prophylaxis Risk score (from Nsg)>0 risk: 14 Pharmacological prophylaxis: NA/contraindicated Pharm contraindication: other Lines/Catheters IV Catheter Type (from Nrsg): Saline Lock Assessment/Plan Hospital Course 82 yo male with reported history of brain neoplasm though details unknown, chronic encephalopathy and respiratory failure on MV via trach with PEG who presented [facility] with sepsis. Found to have extensive DVT and C Diff C Diff: - Continue treatment per ID UTI causing sepsis: - Continue antibiotics per ID DVT: - We are holding AC for now given brain tumor Chronic respiratory failure: - Continue MV via trach Brain neoplasm with chronic encephalopathy - Will discuss goals of care - Unclear baseline Full code for now though dismal prognosis. Hospice would be appropriate, family refusing halfway placement and have appealed discharge but are considering home hospice Result Diagram: 10/12/1845610/12/18454 Subjective 24 Hr Interval Summary Subjective hx not possible: pt non-verbal Exam/Review of Systems Exam Vitals Vital Signs Date Temp Pulse Resp B/P (MAP) Pulse Ox O2 O2 Flow FiO2 Time Delivery Rate 10/15/18 87 16 99 30 11:11 10/15/18 96.8 119/57 Mechanical 10:59 (77) Ventilator Trach Collar Intake and Output 10/14/18 10/14/18 10/15/18 1515:00 23:00 07:00 IntakeIntake Total 1180 ml 800 ml OutputOutput Total 1700 ml 850 ml BalanceBalance -520 ml -50 ml Constitutional: non-verbal Respiratory: clear to auscultation Cardiovascular: regular rate and rhythm Gastrointestinal: soft; No distended Musculoskeletal: nl extremities to inspection Medications Medication Current Medications IV Flush (NS 3 ml) 3 ml PER PROTOCOL IV ; Start 10/02/18 at 13:30 Hydromorphone HCl (Dilaudid) 0.5 mg Q4H PRN IV .SEVERE PAIN 7-10 Last administered on 10/05/18at 12:55; Admin Dose 0.5 MG; Start 10/02/18 at 13:30 Levothyroxine Sodium (Synthroid) 50 mcg BEFORE BREAKFAST GTB Last administered on 10/15/18at 06:19; Admin Dose 50 MCG; Start 10/03/18 at 07:00 Tramadol HCl (Ultram) 50 mg BID PEG Last administered on 10/15/18 08:44; Admin Dose 50 MG; Start 10/03/18 at 21:00 Potassium Chloride (Potassium Chloride Pwd/Soln) 40 meq DAILY GTB Last administered on 10/15/18 08:13; Admin Dose 40 MEQ; Start 10/04/18 at 18:00 Famotidine (Pepcid) 20 mg HS GTB Last administered on 10/14/18 21:21; Admin Dose 20 MG; Start 10/04/18 at 21:00 Metoprolol Succinate (Toprol Xl) 25 mg DAILY PO Last administered on 10/15/18 08:14; Admin Dose 25 MG; Start 10/06/18 at 09:30 Multivitamins (Multivitamin) 30 ml DAILY GTB Last administered on 10/15/18 08:13; Admin Dose 30 ML; Start 10/12/18 at 09:00 Ascorbic Acid (Vitamin C) 500 mg BID GTB Last administered on 10/15/18 08:13; Admin Dose 500 MG; Start 10/11/18 at 21:00; Stop 10/21/18 at 20:59 Zinc Sulfate (Zinc Sulfate) 220 mg DAILY GTB Last administered on 10/15/18 08:13; Admin Dose 220 MG; Start 10/12/18 at 09:00; Stop 10/22/18 at 08:59 Amiodarone HCl (Cordarone) 200 mg BID PO Last administered on 10/15/18 08:14; Admin Dose 200 MG; Start 10/14/18 at 09:00 Vancomycin HCl (Vancomycin Oral Syringe) 250 mg Q6 GTB Last administered on 10/15/18 11:22; Admin Dose 250 MG; Start 10/14/18 at 18:00 Metronidazole 100 ml @ 100 mls/hr Q8 IVPB Last administered on 10/15/18 06:19; Admin Dose 100 MLS/HR; Start 10/14/18 at 18:00 TANIYA LOVE Oct 15, 2018 13:09
--- NOTE | 2018-10-15 13:35 | CONS ---
Consult Date/Type/Reason Admit Date/Time Oct 02, 2018 at 12:38 Initial Consult Date 10/06/18 Type of Consult Pulmonary Requesting Provider: VIRGIE WOLF Date/Time of Note DATE: 10/15/18 TIME: 13:35 Subjective Remains unresponsive. According to case management family transition to comfort care today. Objective Vital Signs Date Temp Pulse Resp B/P (MAP) Pulse Ox O2 O2 Flow FiO2 Time Delivery Rate 10/15/18 87 16 99 30 11:11 10/15/18 96.8 119/57 Mechanical 10:59 (77) Ventilator Trach Collar Intake and Output 10/14/18 10/14/18 10/15/18 1515:00 23:00 07:00 IntakeIntake Total 1180 ml 800 ml OutputOutput Total 1700 ml 850 ml BalanceBalance -520 ml -50 ml Exam GENERAL: Ill-appearing gentleman on mechanical ventilation via tracheostomy VITAL SIGNS: per chart NECK: Supple. No JVD or lymphadenopathy. CARDIAC EXAM: S1, S2. No added sounds or murmurs. CHEST: Diminished air entry bilaterally ABDOMEN: Soft, nontender. No guarding or rebound. EXTREMITIES: No cyanosis, clubbing or edema. NEUROLOGIC: Generalized weakness. No focal deficits. Vent Setting Ventilator Support Mode: AC Fraction of Inspired Oxygen pe: 30 Positive End Expiratory Pressu: 5.0 Results/Medications Result Diagram: 10/12/18 0457 10/12/18 0455 Medications Current Medications IV Flush (NS 3 ml) 3 ml PER PROTOCOL IV ; Start 10/02/18 at 13:30 Hydromorphone HCl (Dilaudid) 0.5 mg Q4H PRN IV .SEVERE PAIN 7-10 Last administered on 10/05/18at 12:55; Admin Dose 0.5 MG; Start 10/02/18 at 13:30 Levothyroxine Sodium (Synthroid) 50 mcg BEFORE BREAKFAST GTB Last administered on 10/15/18at 06:19; Admin Dose 50 MCG; Start 10/03/18 at 07:00 Tramadol HCl (Ultram) 50 mg BID PEG Last administered on 10/15/18 08:44; Admin Dose 50 MG; Start 10/03/18 at 21:00 Potassium Chloride (Potassium Chloride Pwd/Soln) 40 meq DAILY GTB Last administered on 10/15/18at 08:13; Admin Dose 40 MEQ; Start 10/04/18 at 18:00 Famotidine (Pepcid) 20 mg HS GTB Last administered on 10/14/18 21:21; Admin Dose 20 MG; Start 10/04/18 at 21:00 Metoprolol Succinate (Toprol Xl) 25 mg DAILY PO Last administered on 10/15/18 08:14; Admin Dose 25 MG; Start 10/06/18 at 09:30 Multivitamins (Multivitamin) 30 ml DAILY GTB Last administered on 10/15/18 08:13; Admin Dose 30 ML; Start 10/12/18 at 09:00 Ascorbic Acid (Vitamin C) 500 mg BID GTB Last administered on 10/15/18 08:13; Admin Dose 500 MG; Start 10/11/18 at 21:00; Stop 10/21/18 at 20:59 Zinc Sulfate (Zinc Sulfate) 220 mg DAILY GTB Last administered on 10/15/18 08:13; Admin Dose 220 MG; Start 10/12/18 at 09:00; Stop 10/22/18 at 08:59 Amiodarone HCl (Cordarone) 200 mg BID PO Last administered on 10/15/18 08:14; A dmin Dose 200 MG; Start 10/14/18 at 09:00 Vancomycin HCl (Vancomycin Oral Syringe) 250 mg Q6 GTB Last administered on 10/15/18at 11:22; Admin Dose 250 MG; Start 10/14/18 at 18:00 Metronidazole 100 ml @ 100 mls/hr Q8 IVPB Last administered on 10/15/18 06:19; Admin Dose 100 MLS/HR; Start 10/14/18 at 18:00 Assessment/Plan Hospital Course (Demo Recall) IMP: 1. Pseudomonal urinary tract infection. 2. History of brain carcinoma. 3. Ventilator-dependent respiratory failure. 4. Common femoral, superficial vein thrombosis. 5. Anemia 6. C.Diff RECS: Transition to hospice ELIOT GALEAS MD, [facility] Oct 15, 2018 13:35
--- NOTE | 2018-10-15 14:15 | DS ---
Date/Time of Note Date/Time of Note DATE: 10/15/18 TIME: 14:12 Discharge Summary Admission/Discharge Info Admit Date/Time Oct 02, 2018 at 12:38 Discharge Date/Time October 15, 2018 Discharge Diagnosis 82 yo male with reported history of brain neoplasm though details unknown, chronic encephalopathy and respiratory failure on MV via trach with PEG who presented form care home with sepsis. Found to have extensive DVT and C Diff C Diff: - Continue treatment per ID UTI causing sepsis: -Status post antibiotics per ID DVT: - We are holding AC for now given brain tumor Chronic respiratory failure: - Continue MV via trach Brain neoplasm with chronic encephalopathy -DC back to subacute -Family not interested in hospice at this time Patient Condition: Good Hospital Course Patient is a 82 yo male with reported history of brain neoplasm though details unknown, chronic encephalopathy and respiratory failure on MV via trach with PEG who presented form care home with sepsis. Found to have extensive DVT and C Diff as well as UTI. Patient was seen by ID and completed a course for his UTI, patient was placed on vancomycin p.o. for the C. difficile. 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 Family initially refused discharge and refused going back to [facility] rehab but ultimately decided to proceed with discharge to [facility]. On the day of discharge patient's vitals, labs and physical exam are stable. Home Meds Active Scripts Metoprolol Succinate* (Toprol XL*) 25 Mg Tab.sr.24h, 25 MG PO DAILY, #60 Prov:TANIYA LOVE 10/11/18 Amiodarone Hcl* (Amiodarone Hcl*) 200 Mg Tablet, 400 MG PO BID, #60 TAB Prov:TANIYA LOVE 10/11/18 [Vancomycin Oral Syringe] 50 MG/ML SOLN No Conflict Check, 125 MG GTB Q6 for 4 Days, #16 Prov:TANIYA LOVE 10/11/18 Reported Medications Tramadol Hcl* (Ultram*) 50 Mg Tablet, 50 MG GTB BID PRN for PAIN MANAGEMENT, TAB 10/02/18 Magnesium Hydroxide* (Milk Of Magnesia*) 400 Mg/5 Ml Oral.susp, 30 ML GTB DAILY, ML 10/02/18 Magaldrate/Simethicone* (Mag-Al Plus Suspension*) 30 Ml Oral.susp, 30 ML GTB Q4 PRN for GASTROINTESTINAL UPSET, ML 10/02/18 Ondansetron Hcl* (Zofran*) 4 Mg Tablet, 4 MG GTB Q6H PRN for NAUSEA AND OR VOMITING, TAB 10/02/18 Pantoprazole Sodium (Protonix) 40 Mg Granpkt.dr, 40 MG GTB DAILY MIX CONTENTS WITH APPLE SAUCE THEN FLUSH WITH 30ML APPLE JUICE 10/02/18 Levothyroxine Sodium* (Levoxyl*) 50 Mcg Tablet, 50 MCG GTB BEFORE BREAKFAST, #30 TAB 10/02/18 Polyvinyl Alcohol (Tears Again) 15 Ml Drops, 1 DRP BOTH EYES TID, BOTTLE 10/02/18 Atorvastatin* (Atorvastatin*) 40 Mg Tablet, 40 MG GTB QHS, #30 TAB 10/02/18 Acetaminophen* (Acetaminophen*) 650 Mg Tablet, 650 MG GTB Q4 PRN for MILD PAIN LEVEL 1-3, #30 TAB FOR FEVER AND TRACH CHANGE 10/02/18 Acetaminophen* (Acetaminophen*) 500 MG Extra Strength Tablet, 1000 MG GTB Q4 PRN for MODERATE PAIN LEVEL 4-6, TAB 10/02/18 Zinc Sulfate* (Zinc Sulfate*) 220 Mg Cap, 220 MG GTB DAILY, CAP 10/02/18 Ascorbic Acid* (Vitamin C*) 500 Mg Capsule.sa, 500 MG GTB DAILY, CAP 10/02/18 Multivitamin with Minerals (Daily Vitamin Formula-Minerals) 1 Each Tablet, 1 EACH GTB DAILY, TAB 10/02/18 Amino Acids/Protein Hydrolys (Pro-Stat Awc Liquid) 30 Ml Liquid, 30 ML GTB DAILY SUGAR FREE 10/02/18 Na Phos,M-B/Na Phos,Di-Ba (ENEMA [id number]) 133 Ml Enema, 133 ML RC EVERY 2 DAYS PRN for CONSTIPATION, ENEMA 10/02/18 Bisacodyl (Dulcolax) 10 Mg Supp.rect, 10 MG RC DAILY PRN for CONSTIPATION, SUPP.RECT 10/02/18 Docusate Sodium* (Colace*) 100 Mg Capsule, 100 MG GTB BID, #60 CAP 10/02/18 Discontinued Reported Medications Metoprolol Tartrate* (Lopressor*) 25 Mg Tab, 25 MG GTB Q8, #60 TAB HOLD FOR SBP <110 OR HR<60 6/22/19 Aspirin* (Aspirin*) 325 Mg Tablet, 325 MG GTB DAILY, TAB 10/02/18 Lactobacillus Acidophilus/Pect (Acidophilus-Pectin Capsule) 1 Each Capsule, 1 EACH GTB DAILY, CAP 10/02/18 Follow-up Plan Follow-up physicians at skilled nurse facility Primary Care Provider Alfonso Magaña MD Time spent on discharge: > 30 minutes TANIYA LOVE Oct 15, 2018 14:15
== END 2018-10-15 16:22 | DRG 870 ==
LOC: E/R 06:31 → SUATTDRO 11:21 → TEL 12:38 → ICU 10-04 18:23 → 6WM 10-06 17:52
PROVIDERS: ADMIT Hospitalist; ATTEND Internal Medicine
PROC: 5A1955Z Respiratory Ventilation, Greater than 96 Consecutive Hours (ICD-10-PCS; principal; 2018-10-02)
DX: A41.9 Sepsis, unspecified organism (principal); J96.10 Chronic respiratory failure, unspecified whether with hypoxia or hypercapnia; N39.0 Urinary tract infection, site not specified; I82.411 Acute embolism and thrombosis of right femoral vein; A04.72 Enterocolitis due to Clostridium difficile, not specified as recurrent; G93.49 Other encephalopathy; C71.9 Malignant neoplasm of brain, unspecified; E46 Unspecified protein-calorie malnutrition; I42.9 Cardiomyopathy, unspecified; E87.0 Hyperosmolality and hypernatremia; Z99.11 Dependence on respirator [ventilator] status; I48.0 Paroxysmal atrial fibrillation; R13.10 Dysphagia, unspecified; E03.9 Hypothyroidism, unspecified; B96.5 Pseudomonas (aeruginosa) (mallei) (pseudomallei) as the cause of diseases classified elsewhere; D64.9 Anemia, unspecified; Z93.0 Tracheostomy status; Z93.1 Gastrostomy status; Z68.22 Body mass index [BMI] 22.0-22.9, adult
CPT/HCPCS: 36415; 36600; 70450; 71045; 80048; 80053; 80170; 80202; 81001; 82803; 83036; 83605; 83735; 84100; 84443; 84484; 85025; 85610; 85730; 87075; 87081; 87086; 93005; 93306; 93970; 94002; 94003; 96365; 96366; 96367; 96375; J0282; J0692; J1170; J1580; J1644; J1885; J2543; J3370; J3480; J7030; J7040; J7060; J7070

== ENCOUNTER 2018-11-07 13:45 | Inpatient (IN) | payer OTHER, MEDICAID ==
[~2018-11-07] VITALS: Ht 170.2 cm; Wt 59.1 kg
[2018-11-07] VITALS (12 sets, daily range): BP systolic 99–111; BP diastolic 46–65; PULSE 64–82; RESP 14–29; Ht 170.2 cm; Wt 59.1 kg
[~2018-11-07 13:45] MED LIST: ACET-141 GTB; ACET-2047 GTB; AMIN30LI5 GTB; AMIO200T4 GTB; AMIO200T4 PO; ASCO500C7 GTB; ATOR40TA68 GTB; BISA10SU55 RC; CRAN3875 GTB; CRAN425C6 GTB; DOCU-144 GTB; EPOE40002 SC; FER325 GTB; HYDR5TAB NGT; HYDR5TAB PO; LACT1CAP4 GTB; LEVO137T3 NGT; LEVO137T3 PO; LEVO50TA71 GTB; MAGN400O19 GTB; METO-335 GTB; METO-335 PO; MULT-275 GTB; NA P133E10 RC; OMEP40CA6 GTB; ONDA4TAB8 GTB; PANT40SU GTB; POLY15DR25 BOTH EYES; POTA20TA15 GTB; SULF1TAB31 GTB; TRAM50TA GTB; UDMYL GTB; VANC750P8 IV; Vancomycin Oral Syringe GTB; ZINC220C5 GTB
[2018-11-07] MEDS ORDERED: SODIUM CHLORIDE 0.9% 1L BAG IV* STA (14:02)
[2018-11-07] MEDS ORDERED: CEFEPIME 2GM/50 ML (PMX) 50 ML IVPB STA (14:02)
[2018-11-07] MEDS ORDERED: VANCOMYCIN 1 GM (PMX) 250 ML IVPB ONE (14:30)
[2018-11-07] MEDS: NORepinephrine 8MG/250 ML (PMX 250 ML IV SCH ×2 (19:03→19:10)
--- NOTE | 2018-11-07 19:14 | ERD ---
ER Documentation Chief Complaint Chief Complaint HYPOTENSION. DECREASED LOC. HPI This is an 83-year-old male brought in from detention facility for hypotension and decreased level of consciousness. Patient is a chronic trach to vent patient cannot provide any relevant history. History is per EMS when she retirement transfer sheet. ROS All systems reviewed and are negative except as per history of present illness. Medications Home Meds Reported Medications Amiodarone Hcl* (Amiodarone Hcl*) 200 Mg Tablet, 400 MG GTB BID, #180 TAB 11/07/18 Metoprolol Succinate* (Toprol XL*) 25 Mg Tab.sr.24h, 25 MG GTB DAILY, #30 TAB 11/07/18 Ferrous Sulfate* (Ferrous Sulfate*) 325 Mg Tabec, 330 MG GTB BID, TAB 11/07/18 Epoetin fox* (Epogen*) 4,000 Unit/1 Ml Vial, 8000 UNIT SC [place], VIAL HOLD IF >10.5 11/07/18 Omeprazole* (Omeprazole*) 40 Mg Capsule.dr, 40 MG GTB DAILY, #30 CAP 11/07/18 Cran/Vitc/Mannose/Inulin/Brom (Uti-Stat Liquid) 3,875 Mg/30 Ml Liquid, 3875 MG GTB DAILY 11/07/18 Cranberry Extract (Cranberry) 425 Mg Capsule, 425 MG GTB DAILY, CAP 11/07/18 Magaldrate/Simethicone* (Mag-Al Plus Suspension*) 30 Ml Oral.susp, 30 ML GTB Q4 PRN for GASTROINTESTINAL UPSET, ML 11/07/18 Vancomycin HCl in Dextrose 5 % (Vancomycin 750 mg/250 ml-D5w) 750 Mg/250 Ml Plast..bag, 250 MG IV Q6 11/07/18 Potassium Chloride* (K-Dur*) 20 Meq Tab.prt.sr, 40 MEQ GTB DAILY, TAB.SA 11/07/18 Lactobacillus Acidophilus/Pect (Acidophilus-Pectin Capsule) 1 Each Capsule, 1 EACH GTB DAILY, CAP MIX WITH APPLE SAUCE 11/07/18 Sulfamethoxazole/Trimethoprim* (Bactrim Ds* Tablet) 1 Each Tablet, 1 TAB GTB BID, TAB 11/07/18 Tramadol Hcl* (Ultram*) 50 Mg Tablet, 50 MG GTB BID PRN for PAIN MANAGEMENT, TAB 10/02/18 Magnesium Hydroxide* (Milk Of Magnesia*) 400 Mg/5 Ml Oral.susp, 30 ML GTB DAILY, ML 10/02/18 Ondansetron Hcl* (Zofran*) 4 Mg Tablet, 4 MG GTB Q6H PRN for NAUSEA AND OR VOMITING, TAB 10/02/18 Levothyroxine Sodium* (Levoxyl*) 50 Mcg Tablet, 50 MCG GTB BEFORE BREAKFAST, #30 TAB 10/02/18 Polyvinyl Alcohol (Tears Again) 15 Ml Drops, 1 DRP BOTH EYES TID, BOTTLE 10/02/18 Acetaminophen* (Acetaminophen*) 650 Mg Tablet, 650 MG GTB Q4 PRN for MILD PAIN LEVEL 1-3, #30 TAB FOR FEVER AND TRACH CHANGE 10/02/18 Acetaminophen* (Acetaminophen*) 500 MG Extra Strength Tablet, 1000 MG GTB Q4 PRN for MODERATE PAIN LEVEL 4-6, TAB 10/02/18 Zinc Sulfate* (Zinc Sulfate*) 220 Mg Cap, 220 MG GTB DAILY, CAP 10/02/18 Ascorbic Acid* (Vitamin C*) 500 Mg Capsule.sa, 500 MG GTB DAILY, CAP 10/02/18 Multivitamin with Minerals (Daily Vitamin Formula-Minerals) 1 Each Tablet, 1 EACH GTB DAILY, TAB 10/02/18 Amino Acids/Protein Hydrolys (Pro-Stat Awc Liquid) 30 Ml Liquid, 30 ML GTB DAILY SUGAR FREE 10/02/18 Na Phos,M-B/Na Phos,Di-Ba (ENEMA [id number]) 133 Ml Enema, 133 ML RC EVERY 2 DAYS PRN for CONSTIPATION, ENEMA 10/02/18 Bisacodyl (Dulcolax) 10 Mg Supp.rect, 10 MG RC DAILY PRN for CONSTIPATION, SUPP.RECT 10/02/18 Docusate Sodium* (Colace*) 100 Mg Capsule, 100 MG GTB BID, #60 CAP 10/02/18 Discontinued Reported Medications Magaldrate/Simethicone* (Mag-Al Plus Suspension*) 30 Ml Oral.susp, 30 ML GTB Q4 PRN for GASTROINTESTINAL UPSET, ML 10/02/18 Pantoprazole Sodium (Protonix) 40 Mg Granpkt.dr, 40 MG GTB DAILY MIX CONTENTS WITH APPLE SAUCE THEN FLUSH WITH 30ML APPLE JUICE 10/02/18 Atorvastatin* (Atorvastatin*) 40 Mg Tablet, 40 MG GTB QHS, #30 TAB 10/02/18 Discontinued Scripts Metoprolol Succinate* (Toprol XL*) 25 Mg Tab.sr.24h, 25 MG PO DAILY, #60 Prov:TANIYA LOVE 10/11/18 Amiodarone Hcl* (Amiodarone Hcl*) 200 Mg Tablet, 400 MG PO BID, #60 TAB Prov:TANIYA LOVE 10/11/18 [Vancomycin Oral Syringe] 50 MG/ML SOLN No Conflict Check, 125 MG GTB Q6 for 4 Days, #16 Prov:TANIYA LOVE 10/11/18 Allergies Allergies: Coded Allergies: No Known Allergy (Unverified , 11/07/18) PMhx/Soc History of Surgery: Yes (Tracheostomy, gastrostomy) Anesthesia Reaction: No Hx Neurological Disorder: Yes (Brain cancer) Hx Respiratory Disorders: Yes (Chronic respiratory failure status post tracheostomy, ventilator dependence) Hx Cardiac Disorders: Yes (Hypertension) Hx Psychiatric Problems: No Hx Miscellaneous Medical Probl: Yes (Frequent falls, dysphagia status post gastrostomy, right clavicle fracture,) Hx Alcohol Use: No Hx Substance Use: No Hx Tobacco Use: No Smoking Status: Never smoker Physical Exam Vitals Vital Signs Date Temp Pulse Resp B/P (MAP) Pulse Ox O2 O2 Flow FiO2 Time Delivery Rate 11/07/18 91.5 57 20 94/59 (71) 100 Mechanical 19:06 Ventilator 11/07/18 90.8 59 21 76/44 (55) 100 Mechanical 18:43 Ventilator 11/07/18 56 13 74/45 (55) 100 Mechanical 18:35 Ventilator 11/07/18 90.3 55 15 70/44 (53) 100 Mechanical 18:31 Ventilator 11/07/18 53 15 76/56 (63) 100 Mechanical 17:50 Ventilator 11/07/18 59 14 100 40 17:26 11/07/18 50 15 65/38 (47) 100 Mechanical 17:00 Ventilator 11/07/18 52 14 64/37 (46) 100 Mechanical 16:20 Ventilator 11/07/18 52 16 71/46 (54) 100 Mechanical 16:00 Ventilator 11/07/18 54 16 100 40 15:59 11/07/18 57 14 78/43 (55) 100 Mechanical 15:30 Ventilator 11/07/18 57 17 88/48 (61) 100 Mechanical 15:00 Ventilator 11/07/18 55 18 82/46 (58) 100 Mechanical 14:40 Ventilator 11/07/18 55 21 83/53 (63) 100 Mechanical 14:38 Ventilator 11/07/18 53 16 82/70 (74) 95 Mechanical 14:30 Ventilator 11/07/18 54 14 78/40 (53) 95 Mechanical 14:20 Ventilator 11/07/18 91.4 54 14 91/41 (58) 100 Mechanical 14:10 Ventilator 11/07/18 91.4 52 14 76/59 (65) 100 Mechanical 14:00 Ventilator 11/07/18 56 14 100 60 13:59 11/07/18 91.4 48 18 54/32 (39) 100 13:48 Physical Exam Const: No acute distress Head: Atraumatic Eyes: Normal Conjunctiva ENT: Normal External Ears, Nose and Mouth. Neck: Full range of motion. No meningismus. Trach site is clean dry and intact Resp: Clear to auscultation bilaterally Cardio: Regular rate and rhythm, no murmurs Abd: Soft, non tender, non distended. Normal bowel sounds Skin: No petechiae or rashes Back: No midline or flank tenderness Ext: No cyanosis, or edema Neur: Awake Psych: Deferred Result Diagram: 11/07/18 1424 11/07/18 1424 Results 24 hrs Laboratory Tests Test 11/07/18 14:24 11/07/18 16:49 White Blood Count 13.8 10^3/ul Red Blood Count 2.83 10^6/ul Hemoglobin 7.6 g/dl Hematocrit 25.8 % Mean Corpuscular Volume 91.2 fl Mean Corpuscular Hemoglobin 26.9 pg Mean Corpuscular Hemoglobin Concent 29.5 g/dl Red Cell Distribution Width 24.5 % Platelet Count 253 10^3/UL Mean Platelet Volume 10.7 fl Immature Granulocytes % 1.400 % Neutrophils % 72.1 % Lymphocytes % 21.2 % Monocytes % 4.6 % Eosinophils % 0.5 % Basophils % 0.2 % Nucleated Red Blood Cells % 0.2 /100WBC Immature Granulocytes # 0.190 10^3/ul Neutrophils # 9.9 10^3/ul Lymphocytes # 2.9 10^3/ul Monocytes # 0.6 10^3/ul Eosinophils # 0.1 10^3/ul Basophils # 0.0 10^3/ul Nucleated Red Blood Cells # 0.0 10^3/ul Prothrombin Time 18.4 Sec Prothrombin Time Ratio 1.4 INR International Normalized Ratio 1.52 Activated Partial Thromboplast Time 56.6 Sec Sodium Level 153 mmol/L Potassium Level 3.5 mmol/L Chloride Level 131 mmol/L Carbon Dioxide Level 14 mmol/L Anion Gap 8 Blood Urea Nitrogen 13 mg/dl Creatinine 3.11 mg/dl Est Glomerular Filtrat Rate mL/min mL/min Glucose Level 85 mg/dl POC Venous Lactate 2.3 mmol/L Calcium Level 8.7 mg/dl Total Bilirubin 0.3 mg/dl Direct Bilirubin 0.00 mg/dl Indirect Bilirubin 0.3 mg/dl Aspartate Amino Transf (AST/SGOT) 32 IU/L Alanine Aminotransferase (ALT/SGPT) 18 IU/L Alkaline Phosphatase 167 IU/L Troponin I < 0.012 ng/ml Total Protein 5.9 g/dl Albumin 1.9 g/dl Globulin 4.00 g/dl Albumin/Globulin Ratio 0.47 Lactic Acid Level 1.8 mmol/L Current Medications Medications Dose Sig/Lemuel Start Time Status Last (Trade) Ordered Route PRN Stop Time Admin Dose Reason Admin Sodium 1,770 ml BOLUS OVER 2 11/07/18 DC 11/07/18 Chloride HOURS STAT 14:02 14:32 (NS) IV* 11/07/18 14:04 Cefepime HCl 50 ml @ ONCE STAT 11/07/18 DC 11/07/18 100 mls/hr IVPB 14:02 14:32 11/07/18 14:31 Vancomycin 250 ml @ ONCE ONCE 11/07/18 DC 11/07/18 HCl 125 mls/hr IVPB 14:30 15:41 11/07/18 16:29 250 ml @ TITRATE IV 11/07/18 11/07/18 Norepinephrin 1.875 mls/ 19:00 19:03 e hr Procedures/MDM Emergency department course: Patient was seen and evaluated. He had sepsis work-up initiated. Started on sepsis fluid bolus along with cultures. However he maintained hypotension. Blood transition was ordered as well. Central line started with Levophed as well. Central Line Placement by me: Patient consented, sterilely draped, full prep, gown, glove, mask, time out performed. Anesthesia: 1% lidocaine locally Location: Left subclavian Device: Multiple lumen Technique: Seldinger technique. Secured with suture. Results: Venous return from all ports with easy saline flush. No complications. [Chest X-ray 1V Interpreted by me: Central line in SVC, Normal soft tissue, No evidence of pneumothorax.] Patient's infectious symptoms have not stabilized and the patient is at risk of rapid decompensation. The patient will be admitted for careful hydration, antibiotic therapy, and infectious source control. Severe Sepsis Assessment: Infectious Source: Pneumonia End organ damage indicated by: [Lactate > 2.0 mmol/L Hypotension( SBP < 90 or >40 mmHG drop or MAP < 65) Severe Sepsis Managment: Blood Cultures X 2 before broad spectrum antibiotics initiated within 3 hours of recognition. Started at 1402 30 ml/kg NS bolus Completed Initial Lactate: 2.8 Repeat Lactate pending Critical Care: Time: 45 minutes, independent of any separately billable procedural time Treatments/Evaluations: Emergent fluid management, while maintaining close respiratory support. Immediate broad spectrum antibiotic therapy. Simultaneous assessment for possible sources in order to direct therapy. Consideration for invasive and chemical support to prevent respiratory or cardiac collapse. Septic Shock Assessment (1 hour post 30 ml/kg fluid bolus): Hypotension (SBP < 90 or 40 mmHg drop, MAP < 65): Yes Lactic acid > 4.0 [No] Perfusion Reassessment for Septic Shock: Temp 94.5, pulse 57, respiratory rate 16, blood pressure 74/60, O2 sat 100% Heart Exam: [Tachycardic] Lung Exam: [No Crackles] Capillary Refill: [Delayed] Peripheral Pulses: [Radially present] Skin: [Mottled, pale] Hypotensive Treatment (not required for isolated lactic acid elevation): Comfort Care: No Central LIne: Left subclavian Vasopressor started: [norepinephrine] I Accepting Care Team: Current data and ongoing care discussed. Time: 7 PM Primary Provider: Dr. Salvador Consulting: Deferred to inpatient team Outstanding Data: none Departure Diagnosis: Primary Impression: Hypotension Hypotension type: unspecified hypotension type Qualified Codes: I95.9 - Hypotension, unspecified Additional Impression: Sepsis Sepsis type: sepsis due to unspecified organism Qualified Codes: A41.9 - Sepsis, unspecified organism Condition: Critical DAVIDKIM BRITO RashiHolger Nov 07, 2018 19:14
[2018-11-07] MEDS ORDERED: VANCOMYCIN IV PER PHARMACY XX SCH ×2 (20:00→22:30)
[2018-11-07] MEDS ORDERED: IPRATROPIUM (HFA) 12.9 GM INHALER INH PRN (20:00)
[2018-11-07] MEDS ORDERED: ACETAMINOPHEN 650MG/20.3ML CUP GTB PRN (20:00)
[2018-11-07] MEDS ORDERED: ONDANSETRON 4 MG INJ IV PRN (20:00)
[2018-11-07] MEDS ORDERED: PIPER-TAZO 2.25 GM (PMX) 50 ML IVPB SCH (20:00)
[2018-11-07] MEDS ORDERED: ALBUTEROL HFA 8 GM INHALER INH PRN (20:00)
[2018-11-07] MEDS ORDERED: FAMOTIDINE 20 MG INJ IV SCH (21:00)
--- NOTE | 2018-11-07 22:26 | HP ---
Date/Time of Note Date/Time of Note DATE: 11/07/18 TIME: 22:26 Assessment/Plan VTE Prophylaxis SCD applied (from Nsg): Yes Pharmacological prophylaxis: NA/contraindicated Pharm contraindication: low risk/ambulating Lines/Catheters IV Catheter Type (from Nrsg): Central Line Central line still needed: Yes (critical care) Assessment/Plan Hospital Course This is a 83-year-old male being admitted to the ICU floor for: #1 severe sepsis: Secondary likely to underlying healthcare associated pneumonia,, diarrhea. Family reports the patient had diarrhea over the last few days, however currently there is no evidence of diarrhea. Nonetheless given his history of C. difficile we will check for repeat C. difficile, stool ova and parasites. Sputum culture. Blood cultures are pending. Will obtain a urinalysis and urine culture. #2 ventilatory dependent respiratory failure: Patient is status post trach to vent. secondary to underlying history of CVA, brain tumor. Will obtain a stat ABG. Further management as per pulmonology. #3 Healthcare associated pneumonia: Broad-spectrum antibiotics #4 diarrhea: Check stool studies, check for C. difficile #5 metabolic acidosis: Likely secondary to underlying sepsis, healthcare associate pneumonia. Will hydrate the patient. We will continue antibiotics #6 Hypernatremia: approximate 2.7 L water deficit. Will provide IV fluid re suscitation. And put the patient on D5 water at 80 cc an hour with a goal of not correcting sodium more than 6 MEQ the first 24 hours. Will consult nephrology. For further fluid management assistance #7 chronic encephalopathy: Secondary to underlying CVA, brain tumor. Continue supportive care #8 CVA with right-sided weakness: Continue supportive care. #9 history of brain tumor: Patient is status post prior craniotomy. Patient does have residual brain tumor in place. Continue supportive care #10 dysphagia: Secondary to underlying CVA/brain tumor. Status post PEG tube. Consult dietary for tube feedings #11 hypothyroidism: We will check TSH, continue levothyroxine #12 decubitus ulcer: Wound care consult, currently on antibiotics #13 history of DVT: Currently not on anticoagulation given recent history of brain surgery #14 paroxysmal A. fib: Continue amiodarone 200 mg p.o. daily #15 history of C. difficile: Was treated during his last admission. Will recheck stool cultures given setting of sepsis. #16 DVT GI prophylaxis: SCDs, H2 pradeep further treatment strategy will be implemented as per the clinical course Greater than 35 minutes critical care time was spent on the care management this patient. CODE STATUS: Full code I did have extensive discussion with the family at the bedside. They have other relatives as well as his second who would have to participate in the decision-making. Result Diagram: 11/07/18205511/07/182055 Results 24hrs Laboratory Tests Test 11/07/18 14:24 11/07/18 16:49 11/07/18 20:56 White Blood Count 13.8 H 19.8 #H Red Blood Count 2.83 L 3.31 L Hemoglobin 7.6 L 9.0 L Hematocrit 25.8 L 30.6 L Mean Corpuscular Volume 91.2 92.4 Mean Corpuscular Hemoglobin 26.9 L 27.2 L Mean Corpuscular Hemoglobin Concent 29.5 L 29.4 L Red Cell Distribution Width 24.5 #H 23.0 H Platelet Count 253 285 Mean Platelet Volume 10.7 H 10.1 Immature Granulocytes % 1.400 H 1.500 H Neutrophils % 72.1 78.9 H Lymphocytes % 21.2 15.3 Monocytes % 4.6 3.6 Eosinophils % 0.5 0.3 Basophils % 0.2 0.4 Nucleated Red Blood Cells % 0.2 H 0.4 H Immature Granulocytes # 0.190 H 0.290 H Neutrophils # 9.9 H 15.6 H Lymphocytes # 2.9 3.0 H Monocytes # 0.6 0.7 Eosinophils # 0.1 0.1 Basophils # 0.0 0.1 Nucleated Red Blood Cells # 0.0 0.1 H Prothrombin Time 18.4 H Prothrombin Time Ratio 1.4 INR International Normalized Ratio 1.52 Activated Partial Thromboplast Time 56.6 H Sodium Level 153 H 153 H Potassium Level 3.5 3.5 Chloride Level 131 H 133 H Carbon Dioxide Level 14 L 13 L Anion Gap 8 7 Blood Urea Nitrogen 13 12 Creatinine 3.11 H 2.89 H Est Glomerular Filtrat Rate mL/min Glucose Level 85 88 POC Venous Lactate 2.3 *H Calcium Level 8.7 8.0 L Total Bilirubin 0.3 0.5 Direct Bilirubin 0.00 0.00 Indirect Bilirubin 0.3 0.5 Aspartate Amino Transf (AST/SGOT) 32 28 Alanine Aminotransferase (ALT/SGPT) 18 21 Alkaline Phosphatase 167 H 149 H Troponin I < 0.012 Total Protein 5.9 L 5.2 L Albumin 1.9 L 1.7 L Globulin 4.00 H 3.50 H Albumin/Globulin Ratio 0.47 0.48 Lactic Acid Level 1.8 2.0 Magnesium Level 1.9 HPI/ROS Admit Date/Time Admit Date/Time Nov 07, 2018 at 18:54 Hx of Present Illness Chief complaint: Hypotension, decreased level of consciousness The following history was obtained from the ED physician documentation as well as from the family at the bedside as patient unable to provide history given his clinical condition This is a unfortunate 83-year-old male with a past medical history of CVA with right-sided weakness, brain tumor status post craniotomy, respiratory failure status post trach to vent, dysphagia status post PEG tube hypothyroidism, decubitus ulcer, DVT, C. difficile who was brought in from [facility] today as he was noted to have hypotension and decreased level of consciousness. Patient's daughters are with him at the bedside. And they did relay that approximately 3 months ago the patient suffered a stroke which resulted in right-sided weakness. He was also discovered to have a brain tumor and he had a craniotomy performed where they were able to remove the tumor but there was some residual left they were unable to remove all of it given the location. Patient had a prolonged intubation. And he was eventually trached and pegged and he is currently residing at a [facility] facility. He has shown minimal improvement as per the family. They do report that they noticed that he had some diarrhea yesterday. Since coming to [facility] the patient has not been noted to have any diarrhea. Allergies: NKDA Medications: Amiodarone 200 mg G-tube daily Dulcolax 10 mg as needed constipation Colace 100 mg G-tube twice daily Ferrous sulfate 330 mg G-tube twice daily Metoprolol XL 25 mg G-tube daily Potassium chloride 40 mEq G-tube daily Bactrim 1 tab G-tube daily twice daily Vancomycin 250 mg IV every 6 hours Acetaminophen 650 mg G-tube as needed Amino acid/protein hydrolyzed 30 mg. G-tube daily Cranberry extract for 25 mg G-tube daily Epogen 8000 units subcu Thursday Lactobacillus acidophilus 1 G-tube daily Levothyroxine 50 mcg G-tube daily Mag Al plus suspension 30 mL G-tube every 4 as needed Milk of mag 30 mL G-tube daily Multivitamin 1 tab daily Sodium phosphate enema every 2 days PRN constipation Omeprazole 40 mg G-tube daily Zofran 4 mg G-tube every 6 hours as needed Polyvinylalcohol tears 15 mL drops 1 drop both eyes 3 times daily Tramadol 50 mg p.o. G-tube twice daily as needed Zinc sulfate 220 mg G-tube daily ROS Subjective hx not possible: pt non-verbal, pt critical status PMH/Family/Social Past Medical History CVA with right-sided weakness, brain tumor status post craniotomy, respiratory failure status post trach to vent, dysphagia status post PEG tube hypothyroidism, decubitus ulcer, DVT, C. difficile Medications Current Medications Norepinephrine 250 ml @ 1.875 mls/ hr TITRATE IV Last administered on 11/07/18at 19:10; Admin Dose 28.106 MLS/HR; Start 11/07/18 at 19:00 Ondansetron HCl (Zofran Inj) 4 mg Q6H PRN IV NAUSEA AND/OR VOMITING; Start 11/07/18 at 20:00 Albuterol (Ventolin Hfa) 4 puff Q2H RESP THERAPY PRN INH SHORTNESS OF BREATH; Start 11/07/18 at 20:00 Ipratropium [place] (Atrovent Hfa) 4 puff Q2H RESP THERAPY PRN INH SHORTNESS OF BREATH; Start 11/07/18 at 20:00 Acetaminophen (Tylenol Liquid) 650 mg Q6H PRN GTB PAIN LEVEL 1-3 OR FEVER; Start 11/07/18 at 20:00 Famotidine (Pepcid Iv) 20 mg Q24H IV Last administered on 11/07/18at 21:40; Admin Dose 20 MG; Start 11/07/18 at 21:00 Vancomycin HCl (Vanco Iv Per Pharmacy) VANCOMYCIN PER PHARMACY PER PROTOCOL XX ; Start 11/07/18 at 20:00 Piperacillin Sod/ Tazobactam Sod 50 ml @ 100 mls/hr Q6 IVPB ; Start 11/08/18 at 00:00 Dextrose 1,000 ml @ 80 mls/hr [id number] IV ; Start 11/07/18 at 22:30 Magnesium Sulfate/ Dextrose 100 ml @ 100 mls/hr ONCE ONCE IVPB ; Start 11/07/18 at 22:30; Stop 11/07/18 at 23:29 Albumin Human 100 ml @ 100 mls/hr Q1H IV ; Start 11/07/18 at 22:30; Stop 11/08/18 at 00:29; Status UNV Coded Allergies: No Known Allergy (Unverified , 11/07/18) Past Surgical History Tracheostomy Craniotomy PEG tube placement Family History Significant Family History: no pertinent family hx Social History Smoking Status: Unknown if ever smoked Exam/Review of Systems Vital Signs Vitals Vital Signs Date Temp Pulse Resp B/P (MAP) Pulse Ox O2 O2 Flow FiO2 Time Delivery Rate 11/07/18 65 18 100/79 100 Mechanical 20:23 (86) Ventilator 11/07/18 96.2 20:14 11/07/18 40 17:26 Exam Exam General: Currently lying in bed connected via trach to vent, he mildly retracts to pain but is not showing any spontaneous movements HEENT: Atraumatic, normocephalic. Pupils reactive to light bilaterally, trach to vent Neck: Supple with full range of motion. No rigidity or meningismus Chest: Nontender Lungs: Clear to auscultation bilaterally no crackles rales or wheezing Heart: Normal S1-S2, Regular rhythm and rate. No murmur, S3, or S4 Abdomen: PEG tube in place, soft , nontender, nondistended , bowel sounds are present. No guarding no rebound tenderness , No masses or organomegaly. No costovertebral temporal angle mass Extremities: Normal to inspection, no edema no cyanosis Skin: Sacral decub Neurologic: Mildly retract the pain, currently not showing any spontaneous movements. Further neurological examination limited given patient's debilitated/chronic encephalopathic state Additional Comments PROCEDURE: XR Chest. CLINICAL INDICATION: Sepsis. TECHNIQUE: Chest, 1 view. COMPARISON: Chest radiograph 10/02/2018. FINDINGS: Tracheostomy tube noted. The cardiomediastinal silhouette is normal in size. There are aortic calcifications. Retrocardiac opacity seen. No pleural effusion is seen. No definite pneumothorax is seen. No acute osseous abnormality. Multiple healed left-sided rib deformities. Chronic fracture of the right distal clavicle. IMPRESSION: Retrocardiac opacity, representing atelectasis versus pneumonia. Tracheostomy tube place. RPTAT: [facility]WH Natalya Pollock, Physician Date Time Electronically viewed and signed by Natalya Pollock Physician on 11/07/2018 15:25 PH/ CC: KIM HERRON [id number] PROCEDURE: XR Chest. CLINICAL INDICATION: post central line TECHNIQUE: Single frontal view of the chest COMPARISON: CR CHEST 09/13/2018; CR PORT CHEST 09/11/2018; CR PORT CHEST 09/07/2018 FINDINGS: A new left subclavian central line is identified, with tip terminating in the region of the cavoatrial junction. Tracheostomy tube is again noted. Mild pulmonary vascular congestion unchanged. No focal pulmonary consolidation. Tortuous aorta is noted with atherosclerotic calcifications. Cardiac and mediastinal contours otherwise unremarkable. There is no pleural effusion or pneumothorax. Spinal degenerative changes noted. Multiple old left-sided rib fractures again seen. No acute bony abnormality identified. Remaining soft tissues unremarkable. IMPRESSION: Status post left subclavian central line placement, with tip terminating in the region of the cavoatrial junction. Pulmonary vascular congestion. RPTAT:HCLE austyn Jessica, Physician Date Time Electronically viewed and signed by Physician Mariia on 11/07/2018 21:04 cE/ CC: KIM HERRON [phone] VIRGIE WOLF Nov 07, 2018 22:26
[2018-11-07] MEDS ORDERED: SOD CHLORIDE 0.9% 1,000 ML IV ONE (22:30)
[2018-11-07] MEDS ORDERED: MAGNESIUM SULFATE 1 GM/D5W 100 ML IVPB ONE (22:30)
[2018-11-07] MEDS ORDERED: DEXTROSE 5% 1,000 ML IV SCH (22:30)
[2018-11-07] MEDS: ALBUMIN HUMAN 25% 100 ML IV SCH (22:36)
[2018-11-08] VITALS (104 sets, daily range): BP systolic 73–129; BP diastolic 32–100; PULSE 57–80; RESP 11–27
[2018-11-08] MEDS ORDERED: PIPER-TAZO 2.25 GM (PMX) 50 ML IVPB SCH
[2018-11-08] MEDS: ALBUMIN HUMAN 25% 100 ML IV SCH (00:34)
[2018-11-08] MEDS ORDERED: NA BICARBONATE 8.4% 50 ML SYG IV ONE (00:53)
[2018-11-08] MEDS ORDERED: traMADol 50 MG TAB GTB PRN (03:30)
[2018-11-08] MEDS ORDERED: ONDANSETRON 4 MG TAB GTB PRN (03:30)
[2018-11-08] MEDS ORDERED: AL HYDROX/MG HYDROX/SIMETH 30 ML CUP GTB PRN (03:30)
[2018-11-08] MEDS ORDERED: NA PHOSPHATE/BIPHOS 133 ML ENEMA PR PRN (03:30)
[2018-11-08] MEDS ORDERED: ACETAMINOPHEN 650MG/20.3ML CUP GTB PRN (03:30)
[2018-11-08] MEDS: LANSOPRAZOLE 30 MG CAP GTB SCH (06:12)
[2018-11-08] MEDS: NORepinephrine 8MG/250 ML (PMX 250 ML IV SCH ×2 (06:18→16:21)
[2018-11-08] MEDS ORDERED: LEVOTHYROXINE 50 MCG TAB GTB SCH (07:00)
[2018-11-08] MEDS ORDERED: MULTIVITAMINS/MINERALS TAB GTB SCH (09:00)
[2018-11-08] MEDS ORDERED: SODIUM CHLORIDE 0.45% 500 ML BAG IV* ONE (09:00)
[2018-11-08] MEDS ORDERED: [UNRECOGNIZED DRUG - OTHER] GTB SCH (09:00)
[2018-11-08] MEDS ORDERED: NON-FORMULARY/PATIENT OWN MED (Cranberry Extract (Cranberry) 425 MG) GTB SCH (09:00)
[2018-11-08] MEDS ORDERED: NON-FORMULARY/PATIENT OWN MED (Amino Acids/Protein Hydrolys (Pro-Stat Awc Liquid) 30 ML) GTB SCH (09:00)
[2018-11-08] MEDS ORDERED: NON-FORMULARY/PATIENT OWN MED (Lactobacillus Acidophilus/Pect (Acidophilus-Pectin Capsule) GTB SCH (09:00)
[2018-11-08] MEDS ORDERED: MULTIVITAMIN WITH MINERALS GTB SCH (09:00)
[2018-11-08] MEDS ORDERED: NON-FORMULARY/PATIENT OWN MED (Omeprazole* 40 MG) GTB SCH (09:00)
[2018-11-08] MEDS ORDERED: NON-FORMULARY/PATIENT OWN MED (Cran/Vitc/Mannose/Inulin/Brom (Uti-Stat Liquid) 3,875 MG) GTB SCH (09:00)
[2018-11-08] MEDS ORDERED: WATER IV ONE (09:30)
[2018-11-08] MEDS ORDERED: DEXTROSE 5% IV ONE (09:30)
--- NOTE | 2018-11-08 09:32 | CONS ---
Assessment/Plan Assessment/Plan Assessment/Plan (Daily) Chest x-ray showing pulmonary vascular congestion with likely patchy bilateral pneumonia. Ventilator setting; AC of 12, tidal volume 450, PEEP of 0, 30% FiO2. Patient is currently on Levophed at 12 mics per minute. Assessment and recommendations; 1. Patient with history of VDRF and chronic encephalopathy admitted for sepsis likely due to bilateral pneumonia. Currently on appropriate antimicrobial regimen. 2. Intravascular volume depletion with dehydration and acute renal injury with hypernatremia. 3. History of paroxysmal atrial fibrillation, currently in sinus rhythm. 4. History of hypothyroidism. 5. History of DVT. 6. History of brain tumor. Extent of tumor involvement as well as any treatment given is not available. Continue current supportive care. Administer another liter of D5W. Continue free water via G-tube for correction of intravascular volume depletion as well as hypernatremia. Obtain follow-up chest x-ray 24 hours. 40 minutes of critical care time was spent evaluating the patient. Consultation Date/Type/Reason Admit Date/Time Nov 07, 2018 at 18:54 Date of Consultation: Nov 08, 2018 Type of Consult Pulmonary/critical care Patient is an 83-year-old male with a history of chronic respiratory failure which is ventilator dependent admitted for sepsis. Patient has been adequately fluid resuscitated and started on appropriate antimicrobial regimen. Patient still remains hypotensive requiring Levophed. Patient does have history of advanced dementia and was unable to give any history by himself whatsoever. Patient however did not appear to be in any distress. Past medical history; 1. History of dementia with a history of brain tumor. 2. VDRF. 3. History of tracheostomy and G-tube placement. 4. History of DVT. 5. History of paroxysmal atrial fibrillation. 6. History of hypothyroidism. Medications; reviewed. Allergies; none. Social history, family history, occupational histories are not available. Review of system; unable to be obtained. General exam; elderly male, on ventilator via tracheostomy, awake but noncommunicative. Currently in no distress. Date/Time of Note DATE: 11/08/18 TIME: 09:28 Past Medical History Home Meds Reported Medications Amiodarone Hcl* (Amiodarone Hcl*) 200 Mg Tablet, 400 MG GTB BID, #180 TAB 11/07/18 Metoprolol Succinate* (Toprol XL*) 25 Mg Tab.sr.24h, 25 MG GTB DAILY, #30 TAB 11/07/18 Ferrous Sulfate* (Ferrous Sulfate*) 325 Mg Tabec, 330 MG GTB BID, TAB 11/07/18 Epoetin fox* (Epogen*) 4,000 Unit/1 Ml Vial, 8000 UNIT SC [place], VIAL HOLD IF >10.5 11/07/18 Omeprazole* (Omeprazole*) 40 Mg Capsule.dr, 40 MG GTB DAILY, #30 CAP 11/07/18 Cran/Vitc/Mannose/Inulin/Brom (Uti-Stat Liquid) 3,875 Mg/30 Ml Liquid, 3875 MG GTB DAILY 11/07/18 Cranberry Extract (Cranberry) 425 Mg Capsule, 425 MG GTB DAILY, CAP 11/07/18 Magaldrate/Simethicone* (Mag-Al Plus Suspension*) 30 Ml Oral.susp, 30 ML GTB Q4 PRN for GASTROINTESTINAL UPSET, ML 11/07/18 Vancomycin HCl in Dextrose 5 % (Vancomycin 750 mg/250 ml-D5w) 750 Mg/250 Ml Plast..bag, 250 MG IV Q6 11/07/18 Potassium Chloride* (K-Dur*) 20 Meq Tab.prt.sr, 40 MEQ GTB DAILY, TAB.SA 11/07/18 Lactobacillus Acidophilus/Pect (Acidophilus-Pectin Capsule) 1 Each Capsule, 1 EACH GTB DAILY, CAP MIX WITH APPLE SAUCE 11/07/18 Sulfamethoxazole/Trimethoprim* (Bactrim Ds* Tablet) 1 Each Tablet, 1 TAB GTB BID, TAB 11/07/18 Tramadol Hcl* (Ultram*) 50 Mg Tablet, 50 MG GTB BID PRN for PAIN MANAGEMENT, TAB 10/02/18 Magnesium Hydroxide* (Milk Of Magnesia*) 400 Mg/5 Ml Oral.susp, 30 ML GTB DAILY, ML 10/02/18 Ondansetron Hcl* (Zofran*) 4 Mg Tablet, 4 MG GTB Q6H PRN for NAUSEA AND OR VOMITING, TAB 10/02/18 Levothyroxine Sodium* (Levoxyl*) 50 Mcg Tablet, 50 MCG GTB BEFORE BREAKFAST, #30 TAB 10/02/18 Polyvinyl Alcohol (Tears Again) 15 Ml Drops, 1 DRP BOTH EYES TID, BOTTLE 10/02/18 Acetaminophen* (Acetaminophen*) 650 Mg Tablet, 650 MG GTB Q4 PRN for MILD PAIN LEVEL 1-3, #30 TAB FOR FEVER AND TRACH CHANGE 10/02/18 Acetaminophen* (Acetaminophen*) 500 MG Extra Strength Tablet, 1000 MG GTB Q4 PRN for MODERATE PAIN LEVEL 4-6, TAB 10/02/18 Zinc Sulfate* (Zinc Sulfate*) 220 Mg Cap, 220 MG GTB DAILY, CAP 10/02/18 Ascorbic Acid* (Vitamin C*) 500 Mg Capsule.sa, 500 MG GTB DAILY, CAP 10/02/18 Multivitamin with Minerals (Daily Vitamin Formula-Minerals) 1 Each Tablet, 1 EACH GTB DAILY, TAB 10/02/18 Amino Acids/Protein Hydrolys (Pro-Stat Awc Liquid) 30 Ml Liquid, 30 ML GTB DAILY SUGAR FREE 10/02/18 Na Phos,M-B/Na Phos,Di-Ba (ENEMA [id number]) 133 Ml Enema, 133 ML RC EVERY 2 DAYS PRN for CONSTIPATION, ENEMA 10/02/18 Bisacodyl (Dulcolax) 10 Mg Supp.rect, 10 MG RC DAILY PRN for CONSTIPATION, SUPP.RECT 10/02/18 Docusate Sodium* (Colace*) 100 Mg Capsule, 100 MG GTB BID, #60 CAP 10/02/18 Discontinued Reported Medications Magaldrate/Simethicone* (Mag-Al Plus Suspension*) 30 Ml Oral.susp, 30 ML GTB Q4 PRN for GASTROINTESTINAL UPSET, ML 10/02/18 Pantoprazole Sodium (Protonix) 40 Mg Granpkt.dr, 40 MG GTB DAILY MIX CONTENTS WITH APPLE SAUCE THEN FLUSH WITH 30ML APPLE JUICE 10/02/18 Atorvastatin* (Atorvastatin*) 40 Mg Tablet, 40 MG GTB QHS, #30 TAB 10/02/18 Discontinued Scripts Metoprolol Succinate* (Toprol XL*) 25 Mg Tab.sr.24h, 25 MG PO DAILY, #60 Prov:TANIYA LOVE 10/11/18 Amiodarone Hcl* (Amiodarone Hcl*) 200 Mg Tablet, 400 MG PO BID, #60 TAB Prov:TANIYA LOVE 10/11/18 [Vancomycin Oral Syringe] 50 MG/ML SOLN No Conflict Check, 125 MG GTB Q6 for 4 Days, #16 Prov:TANIYA LOVE 10/11/18 Medications Current Medications Norepinephrine 250 ml @ 1.875 mls/ hr TITRATE IV Last administered on 11/08/18at 06:18; Admin Dose 20.625 MLS/HR; Start 11/07/18 at 19:00 Ondansetron HCl (Zofran Inj) 4 mg Q6H PRN IV NAUSEA AND/OR VOMITING; Start 11/07/18 at 20:00 Albuterol (Ventolin Hfa) 4 puff Q2H RESP THERAPY PRN INH SHORTNESS OF BREATH; Start 11/07/18 at 20:00 Ipratropium [place] (Atrovent Hfa) 4 puff Q2H RESP THERAPY PRN INH SHORTNESS OF BREATH; Start 11/07/18 at 20:00 Vancomycin HCl (Vanco Iv Per Pharmacy) VANCOMYCIN PER PHARMACY PER PROTOCOL XX ; Start 11/07/18 at 22:30 Piperacillin Sod/ Tazobactam Sod 50 ml @ 200 mls/hr Q8 IVPB ; Start 11/08/18 at 22:30 Acetaminophen (Tylenol Liquid) 650 mg Q4H PRN GTB MILD PAIN LEVEL 1-3; Start 11/08/18 at 03:30 Ascorbic Acid (Vitamin C) 500 mg DAILY GTB ; Start 11/08/18 at 09:00 Epoetin Fox-epbx (Retacrit (Esrd)) 8,000 unit MONWEDFRI@1700 SC ; Start 11/08/18 at 17:00 Levothyroxine Sodium (Synthroid) 50 mcg BEFORE BREAKFAST GTB Last administered on 11/08/18at 06:11; Admin Dose 50 MCG; Start 11/08/18 at 07:00 Al Hydrox/Mg Hydrox/Simethicone (Mag-Al Plus) 30 ml Q4H PRN GTB G ASTROINTESTINAL UPSET; Start 11/08/18 at 03:30 Magnesium Hydroxide (Milk Of Mag) 30 ml DAILY GTB ; Start 11/08/18 at 09:00 Sodium Biphosphate/ Sodium Phosphate (Fleet Enema) 133 ml DAILY PRN RI CONST IPATION; Start 11/08/18 at 03:30 Ondansetron HCl (Zofran Tab) 4 mg Q6H PRN GTB NAUSEA AND/OR VOMITING; Start 11/08/18 at 03:30 Eye Lubricant (Artificial Tears Oph) 1 drop TID BOTH EYES ; Start 11/08/18 at 09:00 Tramadol HCl (Ultram) 50 mg BID PRN GTB PAIN; Start 11/08/18 at 03:30 Zinc Sulfate (Zinc Sulfate) 220 mg DAILY GTB ; Start 11/08/18 at 09:00 Amiodarone HCl (Cordarone) 200 mg DAILY GTB ; Start 11/08/18 at 09:00 Multivitamins/ Minerals (Theragran-M) 1 tab DAILY GTB ; Start 11/08/18 at 09:00 Lactobacillus Acidophilus/ Rhamnosus (Culturelle) 1 cap BID GTB ; Start 11/08/18 at 09:00 Lansoprazole (Prevacid) 30 mg DAILY@06 GTB Last administered on 11/08/18at 06:12; Admin Dose 30 MG; Start 11/08/18 at 06:00 Sodium Chloride 1,000 ml @ 100 mls/hr Q10H IV ; Start 11/08/18 at 09:30 Potassium Chloride 50 ml @ 25 mls/hr Q2H IVPB ; Start 11/08/18 at 09:30; Stop 11/08/18 at 13:29 Allergies: Coded Allergies: No Known Allergy (Unverified , 11/07/18) Social History Smoking Status: Unknown if ever smoked Exam/Review of Systems Exam Vitals Vital Signs Date Temp Pulse Resp B/P (MAP) Pulse Ox O2 O2 Flow FiO2 Time Delivery Rate 11/08/18 68 19 107/53 100 06:45 (71) 11/08/18 Mechanical 06:00 Ventilator 11/08/18 30 05:30 11/08/18 96.9 04:00 Intake and Output 11/07/18 11/07/18 11/08/18 1515:00 23:00 07:00 IntakeIntake Total 77.231 ml 1821.250 ml BalanceBalance 77.231 ml 1821.250 ml Exam H EENT exam; supple neck, no JVD. No lymphadenopathy. Midline trachea. No thyromegaly. Patient has fair dentition. Tracheostomy in place. Insertion site is clean. Pupils are small bilaterally. Chest exam; diminished breath sounds bilaterally. No added sounds. S1-S2 audible, no murmurs. Regular rhythm. Abdomen exam; soft, no organomegaly. G-tube in place. Bowel sounds are audibl e. Extremity exam; no peripheral edema. Patient does have superficial ulcers involving heels bilaterally. [employer] exam; patient remains awake but noncommunicative. Results Result Diagram: 11/08/18 0500 11/08/18 0836 Results 24hrs Laboratory Tests Test 11/07/18 14:24 11/07/18 16:49 11/07/18 20:56 11/08/18 00:30 White Blood 13.8 H 19.8 #H Count Red Blood Count 2.83 L 3.31 L Hemoglobin 7.6 L 9.0 L Hematocrit 25.8 L 30.6 L Mean Corpuscular 91.2 92.4 Volume Mean Corpuscular 26.9 L 27.2 L Hemoglobin Mean Corpuscular 29.5 L 29.4 L Hemoglobin Dayanara nt Red Cell 24.5 #H 23.0 H Distribution Width Platelet Count 253 285 Mean Platelet 10.7 H 10.1 Volume Immature 1.400 H 1.500 H Granulocytes % Neutrophils % 72.1 78.9 H Lymphocytes % 21.2 15.3 Monocytes % 4.6 3.6 Eosinophils % 0.5 0.3 Basophils % 0.2 0.4 Nucleated Red 0.2 H 0.4 H Blood Cells % Immature 0.190 H 0.290 H Granulocytes # Neutrophils # 9.9 H 15.6 H Lymphocytes # 2.9 3.0 H Monocytes # 0.6 0.7 Eosinophils # 0.1 0.1 Basophils # 0.0 0.1 Nucleated Red 0.0 0.1 H Blood Cells # Prothrombin Time 18.4 H Prothrombin Time 1.4 Ratio INR 1.52 International Normalized Ratio Activated 56.6 H Partial Thrombop last Time Sodium Level 153 H 153 H Potassium Level 3.5 3.5 Chloride Level 131 H 133 H Carbon Dioxide 14 L 13 L Level Anion Gap 8 7 Blood Urea 13 12 Nitrogen Creatinine 3.11 H 2.89 H Est Glomerular Filtrat Rate mL/min Glucose Level 85 88 POC Venous 2.3 *H Lactate Calcium Level 8.7 8.0 L Total Bilirubin 0.3 0.5 Direct Bilirubin 0.00 0.00 Indirect 0.3 0.5 Bilirubin Aspartate Amino 32 28 Transf (AST/SGOT ) Alanine 18 21 Aminotransferase (ALT/SGPT) Alkaline 167 H 149 H Phosphatase Troponin I < 0.012 Total Protein 5.9 L 5.2 L Albumin 1.9 L 1.7 L Globulin 4.00 H 3.50 H Albumin/Globulin 0.47 0.48 Ratio Lactic Acid 1.8 2.0 Level Magnesium Level 1.9 Blood Gas Blood arterial Specimen Source Arterial Blood 11/08/2018 12:05 Date Drawn :16 AM Arterial Blood 7.275 *L pH (Temp corrected) Arterial Blood 27.0 L pCO2 (Temp correct) Arterial Blood 183.9 H pO2 (Temp corrected) Arterial Blood 12.3 L HCO3 Arterial Blood -13.3 L Base Excess Arterial Blood 99.3 Oxygen Saturatio n Jeff Test ACCEPTAB Arterial Blood Right Radial Gas Puncture Site Arterial 0.9 Blood Carboxyhem oglobin Arterial Blood 0.7 Methemoglobin Blood Gas A-a O2 70.3 H Differential Oxyhemoglobin 97.7 Percent Blood Gas 37.0 Temperature Blood Gas 12.0 Respiration Rate Blood Gas Actual 16 Respiration Rate Blood Gas VENT - AC Modality FiO2 40.0 Blood Gas Tidal 450.0 Volume Blood Gas Low 0 PEEP Setting Blood Gas 14.0 Inspiratory Pressure Blood Gas Luis COTTO Critical Value Read Back Blood Gas S.H. Notified Whom Blood Gas 11/08/2018 12:28 Notified Time :20 AM Test 11/08/18 05:00 11/08/18 07:00 11/08/18 08:36 White Blood 19.1 H Count Red Blood Count 2.81 L Hemoglobin 7.7 L Hematocrit 25.7 L Mean Corpuscular 91.5 Volume Mean Corpuscular 27.4 L Hemoglobin Mean Corpuscular 30.0 L Hemoglobin Dayanara nt Red Cell 22.5 H Distribution Width Platelet Count 243 Mean Platelet 10.8 H Volume Immature 1.300 H Granulocytes % Neutrophils % 77.5 H Lymphocytes % 15.7 Monocytes % 4.5 Eosinophils % 0.5 Basophils % 0.5 Nucleated Red 0.4 H Blood Cells % Immature 0.250 H Granulocytes # Neutrophils # 14.8 H Lymphocytes # 3.0 H Monocytes # 0.9 Eosinophils # 0.1 Basophils # 0.1 Nucleated Red 0.1 H Blood Cells # Erythrocyte 2 Sedimentation Rate Sodium Level 155 H 154 H Potassium Level 3.0 L 2.9 *L Chloride Level 132 H 131 H Carbon Dioxide 16 L 16 L Level Anion Gap 7 7 Blood Urea 11 11 Nitrogen Creatinine 2.78 H 2.78 H Est Glomerular Filtrat Rate mL/min Glucose Level 116 121 Osmolality 314 H Calcium Level 8.0 L 7.7 L Total Bilirubin 0.4 Direct Bilirubin 0.00 Indirect 0.4 Bilirubin Aspartate Amino 26 Transf (AST/SGOT ) Alanine 16 Aminotransferase (ALT/SGPT) Alkaline 122 H Phosphatase C-Reactive 22.4 H Protein Total Protein 5.4 L Albumin 2.2 L Globulin 3.20 Albumin/Globulin 0.68 Ratio Thyroid 69.200 H Stimulating Hormone (TSH) Free Thyroxine 0.67 L Free 1.63 L Triiodothyronine (T3) pg/mL Blood Gas Blood arterial Specimen Source Arterial Blood 11/08/2018 7:30: Date Drawn 21 AM Arterial Blood 7.328 L pH (Temp corrected) Arterial Blood 25.8 L pCO2 (Temp correct) Arterial Blood 102.5 H pO2 (Temp corrected) Arterial Blood 13.2 L HCO3 Arterial Blood -11.4 L Base Excess Arterial Blood 97.8 Oxygen Saturatio n Jeff Test ACCEPTAB Arterial Blood Right Radial Gas Puncture Site Arterial 0.3 Blood Carboxyhem oglobin Arterial Blood 0.5 Methemoglobin Blood Gas A-a O2 131.4 H Differential Oxyhemoglobin 97.0 Percent Blood Gas 37.0 Temperature Blood Gas 12.0 Respiration Rate Blood Gas Actual 21 Respiration Rate Blood Gas VENT - AC Modality FiO2 37.0 Blood Gas Tidal 450.0 Volume Blood Gas TM Notified Whom Blood Gas 11/08/2018 7:41: Notified Time 21 AM Medications Medication Current Medications Norepinephrine 250 ml @ 1.875 mls/ hr TITRATE IV Last administered on 11/08/18at 06:18; Admin Dose 20.625 MLS/HR; Start 11/07/18 at 19:00 Ondansetron HCl (Zofran Inj) 4 mg Q6H PRN IV NAUSEA AND/OR VOMITING; Start 11/07/18 at 20:00 Albuterol (Ventolin Hfa) 4 puff Q2H RESP THERAPY PRN INH SHORTNESS OF BREATH; Start 11/07/18 at 20:00 Ipratropium [place] (Atrovent Hfa) 4 puff Q2H RESP THERAPY PRN INH SHORTNESS OF BREATH; Start 11/07/18 at 20:00 Vancomycin HCl (Vanco Iv Per Pharmacy) VANCOMYCIN PER PHARMACY PER PROTOCOL XX ; Start 11/07/18 at 22:30 Piperacillin Sod/ Tazobactam Sod 50 ml @ 200 mls/hr Q8 IVPB ; Start 11/08/18 at 22:30 Acetaminophen (Tylenol Liquid) 650 mg Q4H PRN GTB MILD PAIN LEVEL 1-3; Start 11/08/18 at 03:30 Ascorbic Acid (Vitamin C) 500 mg DAILY GTB ; Start 11/08/18 at 09:00 Epoetin Fox-epbx (Retacrit (Esrd)) 8,000 unit MONWEDFRI@1700 SC ; Start 11/08/18 at 17:00 Levothyroxine Sodium (Synthroid) 50 mcg BEFORE BREAKFAST GTB Last administered on 11/08/18at 06:11; Admin Dose 50 MCG; Start 11/08/18 at 07:00 Al Hydrox/Mg Hydrox/Simethicone (Mag-Al Plus) 30 ml Q4H PRN GTB GASTROINTESTINAL UPSET; Start 11/08/18 at 03:30 Magnesium Hydroxide (Milk Of Mag) 30 ml DAILY GTB ; Start 11/08/18 at 09:00 Sodium Biphosphate/ Sodium Phosphate (Fleet Enema) 133 ml DAILY PRN RI CONSTIPATION; Start 11/08/18 at 03:30 Ondansetron HCl (Zofran Tab) 4 mg Q6H PRN GTB NAUSEA AND/OR VOMITING; Start 11/08/18 at 03:30 Eye Lubricant (Artificial Tears Oph) 1 drop TID BOTH EYES ; Start 11/08/18 at 09:00 Tramadol HCl (Ultram) 50 mg BID PRN GTB PAIN; Start 11/08/18 at 03:30 Zinc Sulfate (Zinc Sulfate) 220 mg DAILY GTB ; Start 11/08/18 at 09:00 Amiodarone HCl (Cordarone) 200 mg DAILY GTB ; Start 11/08/18 at 09:00 Multivitamins/ Minerals (Theragran-M) 1 tab DAILY GTB ; Start 11/08/18 at 09:00 Lactobacillus Acidophilus/ Rhamnosus (Culturelle) 1 cap BID GTB ; Start 11/08/18 at 09:00 Lansoprazole (Prevacid) 30 mg DAILY@06 GTB Last administered on 11/08/18at 06:12; Admin Dose 30 MG; Start 11/08/18 at 06:00 Sodium Chloride 1,000 ml @ 100 mls/hr Q10H IV ; Start 11/08/18 at 09:30 Potassium Chloride 50 ml @ 25 mls/hr Q2H IVPB ; Start 11/08/18 at 09:30; Stop 11/08/18 at 13:29 SADI BERGER Nov 08, 2018 09:32
[2018-11-08] MEDS: SOD CHLORIDE 0.45% 1,000 ML IV SCH ×2 (09:40→19:56)
[2018-11-08] MEDS: ZINC SULFATE 220 MG CAP GTB SCH (09:58)
[2018-11-08] MEDS: ARTIFICIAL TEARS 15 ML OPH BOTH EYES SCH ×3 (09:58→21:06)
[2018-11-08] MEDS: LACTOBACILLUS RHAMNOSUS CAP GTB SCH ×2 (09:58→21:09)
[2018-11-08] MEDS: AMIODARONE 200 MG TAB GTB SCH (09:59)
[2018-11-08] MEDS: MAGNESIUM HYDROXIDE 30ML CUP GTB SCH (09:59)
[2018-11-08] MEDS: ASCORBIC ACID 500 MG TAB GTB SCH (09:59)
--- NOTE | 2018-11-08 11:33 | PN ---
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 The patient is also said to have had a CVA in the past. Is currently managed as follows: 1. Severe sepsis with shock thought to be secondary to bilateral pneumonia 2. Septic shock 3. Acute renal insufficiency with associated metabolic acidosis 4. Paroxysmal atrial fibrillation currently rate controlled 5. Recent C. difficile colitis as well as DVT, September 2018 6. Chronic ventilator dependent respiratory failure status post trach 7. Hx of bran tumor s/p craniotomy about 3 months ago and prev CVA with chronic encephalopathy -family has noted minimal improvements in the last 3months, patient is moving LUE a bit and opens eys spontaneously 8. Chronic neurogenic dysphagia on tube feedings 9. Chronic cardiomyopathy with last known EF of 35% 10. Hypokalemia 11. Severe hyponatremia likely related to dehydration 12. Poorly controlled hypothyroidism 13. Chronic hypochromic anemia Plan: -Continue ICU monitoring and management -Continue empiric broad-spectrum antibiotics and follow-up blood, urine, respiratory cultures -Wean off pressor support as tolerated -Dietary consults to begin tube feeds -Continue IV fluid hydration and free water flushes per nephrology -Continue serial lab monitoring and close electrolyte management -Further interventions per clinical course Overall prognosis poor, but short and long-term, strongly recommend palliative care however it looks like this has been discussed with family multiple times and they are not in agreement, further interventions will depend on clinical course. CRITICAL CARE TIME: >35 mins of which more than half was spent at the bedside and during counselling Result Diagram: 11/08/18 0500 11/08/18 0836 Results 24hrs Laboratory Tests Test 11/07/18 14:24 11/07/18 16:49 11/07/18 20:56 11/08/18 00:30 White Blood 13.8 H 19.8 #H Count Red Blood Count 2.83 L 3.31 L Hemoglobin 7.6 L 9.0 L Hematocrit 25.8 L 30.6 L Mean Corpuscular 91.2 92.4 Volume Mean Corpuscular 26.9 L 27.2 L Hemoglobin Mean Corpuscular 29.5 L 29.4 L Hemoglobin Dayanara nt Red Cell 24.5 #H 23.0 H Distribution Width Platelet Count 253 285 Mean Platelet 10.7 H 10.1 Volume Immature 1.400 H 1.500 H Granulocytes % Neutrophils % 72.1 78.9 H Lymphocytes % 21.2 15.3 Monocytes % 4.6 3.6 Eosinophils % 0.5 0.3 Basophils % 0.2 0.4 Nucleated Red 0.2 H 0.4 H Blood Cells % Immature 0.190 H 0.290 H Granulocytes # Neutrophils # 9.9 H 15.6 H Lymphocytes # 2.9 3.0 H Monocytes # 0.6 0.7 Eosinophils # 0.1 0.1 Basophils # 0.0 0.1 Nucleated Red 0.0 0.1 H Blood Cells # Prothrombin Time 18.4 H Prothrombin Time 1.4 Ratio INR 1.52 International Normalized Ratio Activated 56.6 H Partial Thrombop last Time Sodium Level 153 H 153 H Potassium Level 3.5 3.5 Chloride Level 131 H 133 H Carbon Dioxide 14 L 13 L Level Anion Gap 8 7 Blood Urea 13 12 Nitrogen Creatinine 3.11 H 2.89 H Est Glomerular Filtrat Rate mL/min Glucose Level 85 88 POC Venous 2.3 *H Lactate Calcium Level 8.7 8.0 L Total Bilirubin 0.3 0.5 Direct Bilirubin 0.00 0.00 Indirect 0.3 0.5 Bilirubin Aspartate Amino 32 28 Transf (AST/SGOT ) Alanine 18 21 Aminotransferase (ALT/SGPT) Alkaline 167 H 149 H Phosphatase Troponin I < 0.012 Total Protein 5.9 L 5.2 L Albumin 1.9 L 1.7 L Globulin 4.00 H 3.50 H Albumin/Globulin 0.47 0.48 Ratio Lactic Acid 1.8 2.0 Level Magnesium Level 1.9 Blood Gas Blood arterial Specimen Source Arterial Blood 11/08/2018 12:05 Date Drawn :16 AM Arterial Blood 7.275 *L pH (Temp corrected) Arterial Blood 27.0 L pCO2 (Temp correct) Arterial Blood 183.9 H pO2 (Temp corrected) Arterial Blood 12.3 L HCO3 Arterial Blood -13.3 L Base Excess Arterial Blood 99.3 Oxygen Saturatio n Jeff Test ACCEPTAB Arterial Blood Right Radial Gas Puncture Site Arterial 0.9 Blood Carboxyhem oglobin Arterial Blood 0.7 Methemoglobin Blood Gas A-a O2 70.3 H Differential Oxyhemoglobin 97.7 Percent Blood Gas 37.0 Temperature Blood Gas 12.0 Respiration Rate Blood Gas Actual 16 Respiration Rate Blood Gas VENT - AC Modality FiO2 40.0 Blood Gas Tidal 450.0 Volume Blood Gas Low 0 PEEP Setting Blood Gas 14.0 Inspiratory Pressure Blood Gas Luis COTTO Critical Value Read Back Blood Gas S.H. Notified Whom Blood Gas 11/08/2018 12:28 Notified Time :20 AM Test 11/08/18 05:00 11/08/18 07:00 11/08/18 08:36 White Blood 19.1 H Count Red Blood Count 2.81 L Hemoglobin 7.7 L Hematocrit 25.7 L Mean Corpuscular 91.5 Volume Mean Corpuscular 27.4 L Hemoglobin Mean Corpuscular 30.0 L Hemoglobin Dayanara nt Red Cell 22.5 H Distribution Width Platelet Count 243 Mean Platelet 10.8 H Volume Immature 1.300 H Granulocytes % Neutrophils % 77.5 H Lymphocytes % 15.7 Monocytes % 4.5 Eosinophils % 0.5 Basophils % 0.5 Nucleated Red 0.4 H Blood Cells % Immature 0.250 H Granulocytes # Neutrophils # 14.8 H Lymphocytes # 3.0 H Monocytes # 0.9 Eosinophils # 0.1 Basophils # 0.1 Nucleated Red 0.1 H Blood Cells # Erythrocyte 2 Sedimentation Rate Sodium Level 155 H 154 H Potassium Level 3.0 L 2.9 *L Chloride Level 132 H 131 H Carbon Dioxide 16 L 16 L Level Anion Gap 7 7 Blood Urea 11 11 Nitrogen Creatinine 2.78 H 2.78 H Est Glomerular Filtrat Rate mL/min Glucose Level 116 121 Osmolality 314 H Calcium Level 8.0 L 7.7 L Total Bilirubin 0.4 Direct Bilirubin 0.00 Indirect 0.4 Bilirubin Aspartate Amino 26 Transf (AST/SGOT ) Alanine 16 Aminotransferase (ALT/SGPT) Alkaline 122 H Phosphatase C-Reactive 22.4 H Protein Total Protein 5.4 L Albumin 2.2 L Globulin 3.20 Albumin/Globulin 0.68 Ratio Thyroid 69.200 H Stimulating Hormone (TSH) Free Thyroxine 0.67 L Free 1.63 L Triiodothyronine (T3) pg/mL Blood Gas Blood arterial Specimen Source Arterial Blood 11/08/2018 7:30: Date Drawn 21 AM Arterial Blood 7.328 L pH (Temp corrected) Arterial Blood 25.8 L pCO2 (Temp correct) Arterial Blood 102.5 H pO2 (Temp corrected) Arterial Blood 13.2 L HCO3 Arterial Blood -11.4 L Base Excess Arterial Blood 97.8 Oxygen Saturatio n Jeff Test ACCEPTAB Arterial Blood Right Radial Gas Puncture Site Arterial 0.3 Blood Carboxyhem oglobin Arterial Blood 0.5 Methemoglobin Blood Gas A-a O2 131.4 H Differential Oxyhemoglobin 97.0 Percent Blood Gas 37.0 Temperature Blood Gas 12.0 Respiration Rate Blood Gas Actual 21 Respiration Rate Blood Gas VENT - AC Modality FiO2 37.0 Blood Gas Tidal 450.0 Volume Blood Gas TM Notified Whom Blood Gas 11/08/2018 7:41: Notified Time 21 AM Subjective 24 Hr Interval Summary Free Text/Dictation on pressors Subjective hx not possible: pt non-verbal Exam/Review of Systems Exam Vitals Vital Signs Date Temp Pulse Resp B/P (MAP) Pulse Ox O2 O2 Flow FiO2 Time Delivery Rate 11/08/18 69 22 111/46 100 Mechanical 10:00 (67) Ventilator 11/08/18 98.1 08:00 11/08/18 30 05:30 Intake and Output 11/07/18 11/07/18 11/08/18 1515:00 23:00 07:00 IntakeIntake Total 77.231 ml 1831.250 ml OutputOutput Total 5 ml BalanceBalance 77.231 ml 1826.250 ml Exam Constitutional: non-verbal, other (cachetic , elderly, Patient unresponsive, not following commands or tracking), Eyes occasionally open spontaneously, No oriented, No distress Psych: other (unable to assess) Head: normocephalic, atraumatic Eyes: PERRL, No icteric ENMT: trach to vent No mucosa pink and moist (dry), mouth open Respiratory: diminished breath sounds, + bibasal crackles No labored breathing Cardiovascular: regular rate and rhythm, No murmurs/extra sounds Gastrointestinal: soft, non-tender, bowel sounds, other (PEG tube noted with no cellulitis or discharge) Genitourinary - male: nl external genitalia, lugo Extremities: R side: Chronically contracted on the R paresis minimal L foot withdrawal with stimulation Neurological: altered, eyes opening spontaneously but no tracking or following commands), No nl mental status, No nl speech, No nl strength Results Results 24hrs Laboratory Tests Test 11/07/18 14:24 11/07/18 16:49 11/07/18 20:56 11/08/18 00:30 White Blood 13.8 H 19.8 #H Count Red Blood Count 2.83 L 3.31 L Hemoglobin 7.6 L 9.0 L Hematocrit 25.8 L 30.6 L Mean Corpuscular 91.2 92.4 Volume Mean Corpuscular 26.9 L 27.2 L Hemoglobin Mean Corpuscular 29.5 L 29.4 L Hemoglobin Dayanara nt Red Cell 24.5 #H 23.0 H Distribution Width Platelet Count 253 285 Mean Platelet 10.7 H 10.1 Volume Immature 1.400 H 1.500 H Granulocytes % Neutrophils % 72.1 78.9 H Lymphocytes % 21.2 15.3 Monocytes % 4.6 3.6 Eosinophils % 0.5 0.3 Basophils % 0.2 0.4 Nucleated Red 0.2 H 0.4 H Blood Cells % Immature 0.190 H 0.290 H Granulocytes # Neutrophils # 9.9 H 15.6 H Lymphocytes # 2.9 3.0 H Monocytes # 0.6 0.7 Eosinophils # 0.1 0.1 Basophils # 0.0 0.1 Nucleated Red 0.0 0.1 H Blood Cells # Prothrombin Time 18.4 H Prothrombin Time 1.4 Ratio INR 1.52 International Normalized Ratio Activated 56.6 H Partial Thrombop last Time Sodium Level 153 H 153 H Potassium Level 3.5 3.5 Chloride Level 131 H 133 H Carbon Dioxide 14 L 13 L Level Anion Gap 8 7 Blood Urea 13 12 Nitrogen Creatinine 3.11 H 2.89 H Est Glomerular Filtrat Rate mL/min Glucose Level 85 88 POC Venous 2.3 *H Lactate Calcium Level 8.7 8.0 L Total Bilirubin 0.3 0.5 Direct Bilirubin 0.00 0.00 Indirect 0.3 0.5 Bilirubin Aspartate Amino 32 28 Transf (AST/SGOT ) Alanine 18 21 Aminotransferase (ALT/SGPT) Alkaline 167 H 149 H Phosphatase Troponin I < 0.012 Total Protein 5.9 L 5.2 L Albumin 1.9 L 1.7 L Globulin 4.00 H 3.50 H Albumin/Globulin 0.47 0.48 Ratio Lactic Acid 1.8 2.0 Level Magnesium Level 1.9 Blood Gas Blood arterial Specimen Source Arterial Blood 11/08/2018 12:05 Date Drawn :16 AM Arterial Blood 7.275 *L pH (Temp corrected) Arterial Blood 27.0 L pCO2 (Temp correct) Arterial Blood 183.9 H pO2 (Temp corrected) Arterial Blood 12.3 L HCO3 Arterial Blood -13.3 L Base Excess Arterial Blood 99.3 Oxygen Saturatio n Jeff Test ACCEPTAB Arterial Blood Right Radial Gas Puncture Site Arterial 0.9 Blood Carboxyhem oglobin Arterial Blood 0.7 Methemoglobin Blood Gas A-a O2 70.3 H Differential Oxyhemoglobin 97.7 Percent Blood Gas 37.0 Temperature Blood Gas 12.0 Respiration Rate Blood Gas Actual 16 Respiration Rate Blood Gas VENT - AC Modality FiO2 40.0 Blood Gas Tidal 450.0 Volume Blood Gas Low 0 PEEP Setting Blood Gas 14.0 Inspiratory Pressure Blood Gas Luis COTTO Critical Value Read Back Blood Gas S.H. Notified Whom Blood Gas 11/08/2018 12:28 Notified Time :20 AM Test 11/08/18 05:00 11/08/18 07:00 11/08/18 08:36 White Blood 19.1 H Count Red Blood Count 2.81 L Hemoglobin 7.7 L Hematocrit 25.7 L Mean Corpuscular 91.5 Volume Mean Corpuscular 27.4 L Hemoglobin Mean Corpuscular 30.0 L Hemoglobin Dayanara nt Red Cell 22.5 H Distribution Width Platelet Count 243 Mean Platelet 10.8 H Volume Immature 1.300 H Granulocytes % Neutrophils % 77.5 H Lymphocytes % 15.7 Monocytes % 4.5 Eosinophils % 0.5 Basophils % 0.5 Nucleated Red 0.4 H Blood Cells % Immature 0.250 H Granulocytes # Neutrophils # 14.8 H Lymphocytes # 3.0 H Monocytes # 0.9 Eosinophils # 0.1 Basophils # 0.1 Nucleated Red 0.1 H Blood Cells # Erythrocyte 2 Sedimentation Rate Sodium Level 155 H 154 H Potassium Level 3.0 L 2.9 *L Chloride Level 132 H 131 H Carbon Dioxide 16 L 16 L Level Anion Gap 7 7 Blood Urea 11 11 Nitrogen Creatinine 2.78 H 2.78 H Est Glomerular Filtrat Rate mL/min Glucose Level 116 121 Osmolality 314 H Calcium Level 8.0 L 7.7 L Total Bilirubin 0.4 Direct Bilirubin 0.00 Indirect 0.4 Bilirubin Aspartate Amino 26 Transf (AST/SGOT ) Alanine 16 Aminotransferase (ALT/SGPT) Alkaline 122 H Phosphatase C-Reactive 22.4 H Protein Total Protein 5.4 L Albumin 2.2 L Globulin 3.20 Albumin/Globulin 0.68 Ratio Thyroid 69.200 H Stimulating Hormone (TSH) Free Thyroxine 0.67 L Free 1.63 L Triiodothyronine (T3) pg/mL Blood Gas Blood arterial Specimen Source Arterial Blood 11/08/2018 7:30: Date Drawn 21 AM Arterial Blood 7.328 L pH (Temp corrected) Arterial Blood 25.8 L pCO2 (Temp correct) Arterial Blood 102.5 H pO2 (Temp corrected) Arterial Blood 13.2 L HCO3 Arterial Blood -11.4 L Base Excess Arterial Blood 97.8 Oxygen Saturatio n Jeff Test ACCEPTAB Arterial Blood Right Radial Gas Puncture Site Arterial 0.3 Blood Carboxyhem oglobin Arterial Blood 0.5 Methemoglobin Blood Gas A-a O2 131.4 H Differential Oxyhemoglobin 97.0 Percent Blood Gas 37.0 Temperature Blood Gas 12.0 Respiration Rate Blood Gas Actual 21 Respiration Rate Blood Gas VENT - AC Modality FiO2 37.0 Blood Gas Tidal 450.0 Volume Blood Gas TM Notified Whom Blood Gas 11/08/2018 7:41: Notified Time 21 AM Medications Medication Current Medications Ondansetron HCl (Zofran Inj) 4 mg Q6H PRN IV NAUSEA AND/OR VOMITING; Start 11/07/18 at 20:00 Albuterol (Ventolin Hfa) 4 puff Q2H RESP THERAPY PRN INH SHORTNESS OF BREATH; Start 11/07/18 at 20:00 Ipratropium [place] (Atrovent Hfa) 4 puff Q2H RESP THERAPY PRN INH SHORTNESS OF BREATH; Start 11/07/18 at 20:00 Vancomycin HCl (Vanco Iv Per Pharmacy) VANCOMYCIN PER PHARMACY PER PROTOCOL XX ; Start 11/07/18 at 22:30 Piperacillin Sod/ Tazobactam Sod 50 ml @ 200 mls/hr Q8 IVPB ; Start 11/08/18 at 22:30 Acetaminophen (Tylenol Liquid) 650 mg Q4H PRN GTB MILD PAIN LEVEL 1-3; Start 11/08/18 at 03:30 Ascorbic Acid (Vitamin C) 500 mg DAILY GTB Last administered on 11/08/18at 09:59; Admin Dose 500 MG; Start 11/08/18 at 09:00 Epoetin Adrian-epbx (Retacrit (Esrd)) 8,000 unit MONWEDFRI@1700 SC ; Start 11/08/18 at 17:00 Levothyroxine Sodium (Synthroid) 50 mcg BEFORE BREAKFAST GTB Last administered on 11/08/18at 06:11; Admin Dose 50 MCG; Start 11/08/18 at 07:00 Al Hydrox/Mg Hydrox/Simethicone (Mag-Al Plus) 30 ml Q4H PRN GTB GA STROINTESTINAL UPSET; Start 11/08/18 at 03:30 Magnesium Hydroxide (Milk Of Mag) 30 ml DAILY GTB Last administered on 11/08/18at 09:59; Admin Dose 30 ML; Start 11/08/18 at 09:00 Sodium Biphosphate/ Sodium Phosphate (Fleet Enema) 133 ml DAILY PRN [place] CONSTIPATION; Start 11/08/18 at 03:30 Ondansetron HCl (Zofran Tab) 4 mg Q6H PRN GTB NAUSEA AND/OR VOMITING; Start 11/08/18 at 03:30 Eye Lubricant (Artificial Tears Oph) 1 drop TID BOTH EYES Last administered on 11/08/18at 09:58; Admin Dose 1 DROP; Start 11/08/18 at 09:00 Tramadol HCl (Ultram) 50 mg BID PRN GTB PAIN; Start 11/08/18 at 03:30 Zinc Sulfate (Zinc Sulfate) 220 mg DAILY GTB Last administered on 11/08/18 09:58; Admin Dose 220 MG; Start 11/08/18 at 09:00 Amiodarone HCl (Cordarone) 200 mg DAILY GTB Last administered on 11/08/18 09:5 9; Admin Dose 200 MG; Start 11/08/18 at 09:00 Multivitamins/ Minerals (Theragran-M) 1 tab DAILY GTB Last administered on 11/08/18at 09:58; Admin Dose 1 TAB; Start 11/08/18 at 09:00 Lactobacillus Acidophilus/ Rhamnosus (Culturelle) 1 cap BID GTB Last administered on 11/08/18at 09:58; Admin Dose 1 CAP; Start 11/08/18 at 09:00 Lansoprazole (Prevacid) 30 mg DAILY@06 GTB Last administered on 11/08/18at 06:12; Admin Dose 30 MG; Start 11/08/18 at 06:00 Sodium Chloride 1,000 ml @ 100 mls/hr Q10H IV Last administered on 11/08/18at 09:40; Admin Dose 100 MLS/HR; Start 11/08/18 at 09:30 Potassium Chloride 50 ml @ 25 mls/hr Q2H IVPB ; Start 11/08/18 at 09:30; Stop 11/08/18 at 13:29 Norepinephrine 250 ml @ 1.875 mls/ hr TITRATE IV ; Start 11/08/18 at 11:00 KYLE SEVERINO Nov 08, 2018 11:14
[2018-11-08] MEDS: POTASSIUM CHLORIDE 50 ML IVPB SCH ×2 (12:07→14:07)
--- NOTE | 2018-11-08 12:40 | CONSI ---
Assessment/Plan Assessment/Plan Assessment/Plan (Recall) 83 M c/ prior stroke, brain tumor NOS s/p partial resection, and other comorbidities, who is admitted for management of encephalopathy and hypotension. The clinical picture suggests an acute toxic-metabolic on chronic encephalopathy due to acute systemic illness. An acute and focal MAPPING SPECIALIST process is, though, not yet excluded.. Neurology is consulted for recommendations re: timing of anticoagulation.. P: Head CT for surveillance OK to initiate anticoagulation if the above is stable from prior (09/29).. EEG to evaluate for subclinical seizure Await [facility] [place] as able Limit sedating medications where possible Other management and supportive care per primary Will follow clinically Consultation Date/Type/Reason Admit Date/Time Nov 07, 2018 at 18:54 Type of Consult Neurology Reason for Consultation ams Requesting Provider: KYLE SEVERINO Date/Time of Note DATE: 11/08/18 TIME: 12:28 Hx of Present Illness Patient is unable to contribute a Hx. It is elsewhere noted: This is a unfortunate 83-year-old male with a past medical history of CVA with r ight-sided weakness, brain tumor status post craniotomy, respiratory failure status post trach to vent, dysphagia status post PEG tube hypothyroidism, decubitus ulcer, DVT, C. difficile who was brought in from SNF today as he was noted to have hypotension and decreased level of consciousness. Patient's daughters are with him at the bedside. And they did relay that approximately 3 months ago the patient suffered a stroke which resulted in right-sided weakness. He was also discovered to have a brain tumor and he had a craniotomy performed where they were able to remove the tumor but there was some residual left they were unable to remove all of it given the location. Patient had a prolonged intubation. And he was eventually trached and pegged and he is currently residing at a assisted facility. He has shown minimal improvement as per the family. They do report that they noticed that he had some diarrhea yesterday. Since coming [facility] the patient has not been noted to have any diarrhea. limited by ams/vent Objective Exam Vitals Vital Signs Date Temp Pulse Resp B/P (MAP) Pulse Ox O2 O2 Flow FiO2 Time Delivery Rate 11/08/18 69 22 111/46 100 Mechanical 10:00 (67) Ventilator 11/08/18 30 08:20 11/08/18 98.1 08:00 Intake and Output 11/07/18 11/07/18 11/08/18 1515:00 23:00 07:00 IntakeIntake Total 77.231 ml 1831.250 ml OutputOutput Total 5 ml BalanceBalance 77.231 ml 1826.250 ml Exam PE: Gen Appearance: No Apparent Distress HEENT: [place] Cardiovascular: Regular rate Abdomen: Soft Extremities: Dry NE: The patient was obtunded and nonverbal. Cranial nerve examination was limited by mental status. Pupils were equal and reactive to light. There was no afferent pupillary defect. Funduscopic examination was limited. Face was grossly symmetric, w/ present corneal and cough reflexes. Tone was normal. Muscle bulk was normal. I did not see fasciculations. The patient withdrew to noxious stimulation x 4. Coordination and gait testing was limited by mental status. Arm and leg reflexes were symmetric. Barajas's sign was absent. Plantar responses were flexor. Results Result Diagram: 11/08/18 0500 11/08/18 0836 Results 24hrs Laboratory Tests Test 11/07/18 14:24 11/07/18 16:49 11/07/18 20:56 11/08/18 00:30 White Blood 13.8 H 19.8 #H Count Red Blood Count 2.83 L 3.31 L Hemoglobin 7.6 L 9.0 L Hematocrit 25.8 L 30.6 L Mean Corpuscular 91.2 92.4 Volume Mean Corpuscular 26.9 L 27.2 L Hemoglobin Mean Corpuscular 29.5 L 29.4 L Hemoglobin Dayanara nt Red Cell 24.5 #H 23.0 H Distribution Width Platelet Count 253 285 Mean Platelet 10.7 H 10.1 Volume Immature 1.400 H 1.500 H Granulocytes % Neutrophils % 72.1 78.9 H Lymphocytes % 21.2 15.3 Monocytes % 4.6 3.6 Eosinophils % 0.5 0.3 Basophils % 0.2 0.4 Nucleated Red 0.2 H 0.4 H Blood Cells % Immature 0.190 H 0.290 H Granulocytes # Neutrophils # 9.9 H 15.6 H Lymphocytes # 2.9 3.0 H Monocytes # 0.6 0.7 Eosinophils # 0.1 0.1 Basophils # 0.0 0.1 Nucleated Red 0.0 0.1 H Blood Cells # Prothrombin Time 18.4 H Prothrombin Time 1.4 Ratio INR 1.52 International Normalized Ratio Activated 56.6 H Partial Thrombop last Time Sodium Level 153 H 153 H Potassium Level 3.5 3.5 Chloride Level 131 H 133 H Carbon Dioxide 14 L 13 L Level Anion Gap 8 7 Blood Urea 13 12 Nitrogen Creatinine 3.11 H 2.89 H Est Glomerular Filtrat Rate mL/min Glucose Level 85 88 POC Venous 2.3 *H Lactate Calcium Level 8.7 8.0 L Total Bilirubin 0.3 0.5 Direct Bilirubin 0.00 0.00 Indirect 0.3 0.5 Bilirubin Aspartate Amino 32 28 Transf (AST/SGOT ) Alanine 18 21 Aminotransferase (ALT/SGPT) Alkaline 167 H 149 H Phosphatase Troponin I < 0.012 Total Protein 5.9 L 5.2 L Albumin 1.9 L 1.7 L Globulin 4.00 H 3.50 H Albumin/Globulin 0.47 0.48 Ratio Lactic Acid 1.8 2.0 Level Magnesium Level 1.9 Blood Gas Blood arterial Specimen Source Arterial Blood 11/08/2018 12:05 Date Drawn :16 AM Arterial Blood 7.275 *L pH (Temp corrected) Arterial Blood 27.0 L pCO2 (Temp correct) Arterial Blood 183.9 H pO2 (Temp corrected) Arterial Blood 12.3 L HCO3 Arterial Blood -13.3 L Base Excess Arterial Blood 99.3 Oxygen Saturatio n Jeff Test ACCEPTAB Arterial Blood Right Radial Gas Puncture Site Arterial 0.9 Blood Carboxyhem oglobin Arterial Blood 0.7 Methemoglobin Blood Gas A-a O2 70.3 H Differential Oxyhemoglobin 97.7 Percent Blood Gas 37.0 Temperature Blood Gas 12.0 Respiration Rate Blood Gas Actual 16 Respiration Rate Blood Gas VENT - AC Modality FiO2 40.0 Blood Gas Tidal 450.0 Volume Blood Gas Low 0 PEEP Setting Blood Gas 14.0 Inspiratory Pressure Blood Gas Luis COTTO Critical Value Read Back Blood Gas S.H. Notified Whom Blood Gas 11/08/2018 12:28 Notified Time :20 AM Test 11/08/18 05:00 11/08/18 07:00 11/08/18 08:36 White Blood 19.1 H Count Red Blood Count 2.81 L Hemoglobin 7.7 L Hematocrit 25.7 L Mean Corpuscular 91.5 Volume Mean Corpuscular 27.4 L Hemoglobin Mean Corpuscular 30.0 L Hemoglobin Dayanara nt Red Cell 22.5 H Distribution Width Platelet Count 243 Mean Platelet 10.8 H Volume Immature 1.300 H Granulocytes % Neutrophils % 77.5 H Lymphocytes % 15.7 Monocytes % 4.5 Eosinophils % 0.5 Basophils % 0.5 Nucleated Red 0.4 H Blood Cells % Immature 0.250 H Granulocytes # Neutrophils # 14.8 H Lymphocytes # 3.0 H Monocytes # 0.9 Eosinophils # 0.1 Basophils # 0.1 Nucleated Red 0.1 H Blood Cells # Erythrocyte 2 Sedimentation Rate Sodium Level 155 H 154 H Potassium Level 3.0 L 2.9 *L Chloride Level 132 H 131 H Carbon Dioxide 16 L 16 L Level Anion Gap 7 7 Blood Urea 11 11 Nitrogen Creatinine 2.78 H 2.78 H Est Glomerular Filtrat Rate mL/min Glucose Level 116 121 Osmolality 314 H Calcium Level 8.0 L 7.7 L Total Bilirubin 0.4 Direct Bilirubin 0.00 Indirect 0.4 Bilirubin Aspartate Amino 26 Transf (AST/SGOT ) Alanine 16 Aminotransferase (ALT/SGPT) Alkaline 122 H Phosphatase C-Reactive 22.4 H Protein Total Protein 5.4 L Albumin 2.2 L Globulin 3.20 Albumin/Globulin 0.68 Ratio Thyroid 69.200 H Stimulating Hormone (TSH) Free Thyroxine 0.67 L Free 1.63 L Triiodothyronine (T3) pg/mL Blood Gas Blood arterial Specimen Source Arterial Blood 11/08/2018 7:30: Date Drawn 21 AM Arterial Blood 7.328 L pH (Temp corrected) Arterial Blood 25.8 L pCO2 (Temp correct) Arterial Blood 102.5 H pO2 (Temp corrected) Arterial Blood 13.2 L HCO3 Arterial Blood -11.4 L Base Excess Arterial Blood 97.8 Oxygen Saturatio n Jeff Test ACCEPTAB Arterial Blood Right Radial Gas Puncture Site Arterial 0.3 Blood Carboxyhem oglobin Arterial Blood 0.5 Methemoglobin Blood Gas A-a O2 131.4 H Differential Oxyhemoglobin 97.0 Percent Blood Gas 37.0 Temperature Blood Gas 12.0 Respiration Rate Blood Gas Actual 21 Respiration Rate Blood Gas VENT - AC Modality FiO2 37.0 Blood Gas Tidal 450.0 Volume Blood Gas TM Notified Whom Blood Gas 11/08/2018 7:41: Notified Time 21 AM Past Medical History reviewed Home Meds Reported Medications Amiodarone Hcl* (Amiodarone Hcl*) 200 Mg Tablet, 400 MG GTB BID, #180 TAB 11/07/18 Metoprolol Succinate* (Toprol XL*) 25 Mg Tab.sr.24h, 25 MG GTB DAILY, #30 TAB 11/07/18 Ferrous Sulfate* (Ferrous Sulfate*) 325 Mg Tabec, 330 MG GTB BID, TAB 11/07/18 Epoetin fox* (Epogen*) 4,000 Unit/1 Ml Vial, 8000 UNIT SC MONWEDFRI, VIAL HOLD IF >10.5 11/07/18 Omeprazole* (Omeprazole*) 40 Mg Capsule.dr, 40 MG GTB DAILY, #30 CAP 11/07/18 Cran/Vitc/Mannose/Inulin/Brom (Uti-Stat Liquid) 3,875 Mg/30 Ml Liquid, 3875 MG GTB DAILY 11/07/18 Cranberry Extract (Cranberry) 425 Mg Capsule, 425 MG GTB DAILY, CAP 11/07/18 Magaldrate/Simethicone* (Mag-Al Plus Suspension*) 30 Ml Oral.susp, 30 ML GTB Q4 PRN for GASTROINTESTINAL UPSET, ML 11/07/18 Vancomycin HCl in Dextrose 5 % (Vancomycin 750 mg/250 ml-D5w) 750 Mg/250 Ml Plast..bag, 250 MG IV Q6 11/07/18 Potassium Chloride* (K-Dur*) 20 Meq Tab.prt.sr, 40 MEQ GTB DAILY, TAB.SA 11/07/18 Lactobacillus Acidophilus/Pect (Acidophilus-Pectin Capsule) 1 Each Capsule, 1 EACH GTB DAILY, CAP MIX WITH APPLE SAUCE 11/07/18 Sulfamethoxazole/Trimethoprim* (Bactrim Ds* Tablet) 1 Each Tablet, 1 TAB GTB BID, TAB 11/07/18 Tramadol Hcl* (Ultram*) 50 Mg Tablet, 50 MG GTB BID PRN for PAIN MANAGEMENT, TAB 10/02/18 Magnesium Hydroxide* (Milk Of Magnesia*) 400 Mg/5 Ml Oral.susp, 30 ML GTB DAILY, ML 10/02/18 Ondansetron Hcl* (Zofran*) 4 Mg Tablet, 4 MG GTB Q6H PRN for NAUSEA AND OR VOMITING, TAB 10/02/18 Levothyroxine Sodium* (Levoxyl*) 50 Mcg Tablet, 50 MCG GTB BEFORE BREAKFAST, #30 TAB 10/02/18 Polyvinyl Alcohol (Tears Again) 15 Ml Drops, 1 DRP BOTH EYES TID, BOTTLE 10/02/18 Acetaminophen* (Acetaminophen*) 650 Mg Tablet, 650 MG GTB Q4 PRN for MILD PAIN LEVEL 1-3, #30 TAB FOR FEVER AND TRACH CHANGE 10/02/18 Acetaminophen* (Acetaminophen*) 500 MG Extra Strength Tablet, 1000 MG GTB Q4 PRN for MODERATE PAIN LEVEL 4-6, TAB 10/02/18 Zinc Sulfate* (Zinc Sulfate*) 220 Mg Cap, 220 MG GTB DAILY, CAP 10/02/18 Ascorbic Acid* (Vitamin C*) 500 Mg Capsule.sa, 500 MG GTB DAILY, CAP 10/02/18 Multivitamin with Minerals (Daily Vitamin Formula-Minerals) 1 Each Tablet, 1 EACH GTB DAILY, TAB 10/02/18 Amino Acids/Protein Hydrolys (Pro-Stat Awc Liquid) 30 Ml Liquid, 30 ML GTB DAILY SUGAR FREE 10/02/18 Na Phos,M-B/Na Phos,Di-Ba (ENEMA [id number]) 133 Ml Enema, 133 ML RC EVERY 2 DAYS PRN for CONSTIPATION, ENEMA 10/02/18 Bisacodyl (Dulcolax) 10 Mg Supp.rect, 10 MG RC DAILY PRN for CONSTIPATION, SUPP.RECT 10/02/18 Docusate Sodium* (Colace*) 100 Mg Capsule, 100 MG GTB BID, #60 CAP 10/02/18 Discontinued Reported Medications Magaldrate/Simethicone* (Mag-Al Plus Suspension*) 30 Ml Oral.susp, 30 ML GTB Q4 PRN for GASTROINTESTINAL UPSET, ML 10/02/18 Pantoprazole Sodium (Protonix) 40 Mg Granpkt.dr, 40 MG GTB DAILY MIX CONTENTS WITH APPLE SAUCE THEN FLUSH WITH 30ML APPLE JUICE 10/02/18 Atorvastatin* (Atorvastatin*) 40 Mg Tablet, 40 MG GTB QHS, #30 TAB 10/02/18 Discontinued Scripts Metoprolol Succinate* (Toprol XL*) 25 Mg Tab.sr.24h, 25 MG PO DAILY, #60 Prov:TANIYA LOVE 10/11/18 Amiodarone Hcl* (Amiodarone Hcl*) 200 Mg Tablet, 400 MG PO BID, #60 TAB Prov:TANIYA LOVE 10/11/18 [Vancomycin Oral Syringe] 50 MG/ML SOLN No Conflict Check, 125 MG GTB Q6 for 4 Days, #16 Prov:TANIYA LOVE 10/11/18 Medications Current Medications Ondansetron HCl (Zofran Inj) 4 mg Q6H PRN IV NAUSEA AND/OR VOMITING; Start 11/07/18 at 20:00 Albuterol (Ventolin Hfa) 4 puff Q2H RESP THERAPY PRN INH SHORTNESS OF BREATH; Start 11/07/18 at 20:00 Ipratropium Ecker[place] (Atrovent Hfa) 4 puff Q2H RESP THERAPY PRN INH SHORTNESS OF BREATH; Start 11/07/18 at 20:00 Vancomycin HCl (Vanco Iv Per Pharmacy) VANCOMYCIN PER PHARMACY PER PROTOCOL XX ; Start 11/07/18 at 22:30 Piperacillin Sod/ Tazobactam Sod 50 ml @ 200 mls/hr Q8 IVPB ; Start 11/08/18 at 22:30 Acetaminophen (Tylenol Liquid) 650 mg Q4H PRN GTB MILD PAIN LEVEL 1-3; Start 11/08/18 at 03:30 Ascorbic Acid (Vitamin C) 500 mg DAILY GTB Last administered on 11/08/18at 09:59; Admin Dose 500 MG; Start 11/08/18 at 09:00 Epoetin Fox-epbx (Retacrit (Esrd)) 8,000 unit MONWEDFRI@1700 SC ; Start 11/08/18 at 17:00 Al Hydrox/Mg Hydrox/Simethicone (Mag-Al Plus) 30 ml Q4H PRN GTB GASTROINTESTINAL UPSET; Start 11/08/18 at 03:30 Magnesium Hydroxide (Milk Of Mag) 30 ml DAILY GTB Last administered on 11/08/18at 09:59; Admin Dose 30 ML; Start 11/08/18 at 09:00 Sodium Biphosphate/ Sodium Phosphate (Fleet Enema) 133 ml DAILY PRN NE CONSTIPATION; Start 11/08/18 at 03:30 Ondansetron HCl (Zofran Tab) 4 mg Q6H PRN GTB NAUSEA AND/OR VOMITING; Start 11/08/18 at 03:30 Eye Lubricant (Artificial Tears Oph) 1 drop TID BOTH EYES Last administered on 11/08/18at 09:58; Admin Dose 1 DROP; Start 11/08/18 at 09:00 Tramadol HCl (Ultram) 50 mg BID PRN GTB PAIN; Start 11/08/18 at 03:30 Zinc Sulfate (Zinc Sulfate) 220 mg DAILY GTB Last administered on 11/08/18at 09:58; Admin Dose 220 MG; Start 11/08/18 at 09:00 Amiodarone HCl (Cordarone) 200 mg DAILY GTB Last administered on 11/08/18at 09:59; Admin Dose 200 MG; Start 11/08/18 at 09:00 Multivitamins/ Minerals (Theragran-M) 1 tab DAILY GTB Last administered on 11/08/18at 09:58; Admin Dose 1 TAB; Start 11/08/18 at 09:00 Lactobacillus Acidophilus/ Rhamnosus (Culturelle) 1 cap BID GTB Last administered on 11/08/18at 09:58; Admin Dose 1 CAP; Start 11/08/18 at 09:00 Lansoprazole (Prevacid) 30 mg DAILY@06 GTB Last administered on 11/08/18at 06:12; Admin Dose 30 MG; Start 11/08/18 at 06:00 Sodium Chloride 1,000 ml @ 100 mls/hr Q10H IV Last administered on 11/08/18at 09:40; Admin Dose 100 MLS/HR; Start 11/08/18 at 09:30 Potassium Chloride 50 ml @ 25 mls/hr Q2H IVPB ; Start 11/08/18 at 09:30; Stop 11/08/18 at 13:29 Norepinephrine 250 ml @ 1.875 mls/ hr TITRATE IV ; Start 11/08/18 at 11:00 Levothyroxine Sodium (Synthroid) 125 mcg BEFORE BREAKFAST GTB ; Start 11/09/18 at 07:00 Heparin Sodium (Porcine) (Heparin (5000 Units/1ml)) 5,000 unit BID SC ; Start 11/08/18 at 21:00 Allergies: Coded Allergies: No Known Allergy (Unverified , 11/07/18) Social History Smoking Status: Unknown if ever smoked STACIA ENRIQUE Nov 08, 2018 12:39
--- NOTE | 2018-11-08 15:53 | CONS ---
DATE OF ADMISSION: 11/07/2018 DATE OF CONSULTATION: 11/08/2018 TYPE OF CONSULTATION: Nephrology. REASON FOR CONSULTATION: Acute kidney injury. PHYSICIAN REQUESTING CONSULT: Dr. Wolf. HISTORY OF PRESENT ILLNESS: This is an 83-year-old male with a past medical history of respiratory f ailure, history of dysphagia, status post PEG, history of severe right-sided weakness, history of br ain tumor status post craniotomy, history of decubitus ulcer, DVT who presents to [facility] Emergency Room from skilled nurse facility. The patient was noted to be hypotensive, decreased le sebastian of consciousness. The patient is currently 3 months status post CVA with right-sided weakness. At that time he was also found to have a brain tumor, had a craniotomy with partial removal of tumor . The patient was residing at a skilled nurse facility, was brought into the emergency room as the p atient was noted to be hypotensive upon arrival, patient was noted to be in septic shock. Was starte d on IV fluids, pressor support. The patient had elevated white count of 13,000. Also noted to have pulmonary vascular congestion. The patient was then transferred to intensive care unit for continue d care. In terms of patient's renal history, the previous baseline creatinine around 0.8 to 1. 0 mg. On admis edilson the patient's creatinine 3.11 yesterday which has improved to 2.78 mg/dL in the last 14 hours. There have been no reports of hemoptysis, hematemesis, hematochezia. PAST MEDICAL HISTORY: As stated above, history of respiratory failure, history of dysphagia, histor y of CVA, history of brain tumor. PAST SURGICAL HISTORY: Status post trach, status post craniotomy. FAMILY HISTORY: Noncontributory. ALLERGIES: NO KNOWN DRUG ALLERGIES; MEDICATIONS: Have been reviewed. SOCIAL HISTORY: Resides at a skilled nurse facility. REVIEW OF SYSTEMS: Unable to do adequate review of systems. The patient stated pertinent positives obtained by reviewing medical records, speaking to hospital staff, stated in HPI, otherwise negative . PHYSICAL EXAMINATION: VITAL SIGNS: Blood pressure 107/53, respirations 19, pulse 60, temperature 98.6. HEENT: Head is normocephalic. NECK: Shows trach. HEART: Tachycardic. LUNGS: Show diminished breath sounds at the base. ABDOMEN: Soft. Positive PEG. EXTREMITIES: Negative for clubbing, cyanosis. Trace edema. DERMATOLOGIC: No rashes. MUSCULOSKELETAL: No joint effusions. NEUROLOGIC: Limited as patient is lethargic. LABORATORY DATA: Has been reviewed. ABG has been reviewed. Microbiology has been reviewed. ASSESSMENT AND PLAN: This is an 83-year-old male who presents with: 1. Nonoliguric acute kidney injury with previous baseline creatinine around 1.0 mg/dL. Etiology of acute kidney injury is secondary to sepsis, possible acute tubular necrosis due to underlying sepsis, ischemic hypoperfusion. Other possibilities such as a renal obstruction needs to be ruled out, alth ough less likely. Recommendation at this point is to do a full evaluation. We will check urinalysis with microanalysis, check urine electrolytes, check a renal ultrasound to rule out obstruction. Cont inue pressor support to maintain MAP 65. Continue antibiotic therapy. We will adjust intravenous fl uids to increase volume expansion. Monitor urinary output and renal function closely. 2. Hypernatremia. The patient has a free water deficit approximately 3.5 liters. Etiology is likel y due to insensible losses and decreased free water intake. Lower suspicion for diabetes insipidus. Plan is to do a full evaluation. We will check urine osmolarity. Check urine sodium level. Will s tart the patient on free water flushes 250 mL q.4h. Also, adjusted IV fluids. Monitor serial sodium levels to ensure correction of no more than 12 mEq in a 24-hour period. 3. Hypokalemia, replete potassium chloride. 4. Mixed acid base disorder. The patient has a metabolic acidosis and respiratory alkalosis. Etiolo gy is likely secondary to acute kidney injury. No need for bicarbonate therapy at this time. Will c ontinue to monitor. 5. Anemia. Continue to monitor hemoglobin and hematocrit levels. Check an iron panel. 6. Mineral bone disorder. Monitor potassium and calcium. 7. Septic shock secondary to urinary tract infection. Continue current antibiotic regimen. Follow up cultures. 8. History of Clostridium difficile. Continue current treatment plan. 9. Ventilator-dependent respiratory failure. Vent settings and arterial blood gas was reviewed. Co ntinue to monitor. Follow up with pulmonary. 10. Dysphagia, status post percutaneous endoscopic gastrostomy, resume tube feeding when stable. 11. Chronic encephalopathy, etiology toxic metabolic. Continue to monitor. 12. History of brain tumor, status post craniotomy. 13. History of deep venous thrombosis, hold anticoagulation at this time. 14. Gastrointestinal and deep venous thrombosis prophylaxis. Thank you, Dr. Wolf, for this interesting consult. It will be a pleasure to follow patient with y ou throughout the hospital course. Dictated By: ZAYDA LUCIANO DO NR/NTS Conf#: [id number] DID#: [id number] CC: VIRGIE WOLF MD; CELINA HANCOCK MD;*EndCC*
[2018-11-08] MEDS: EPOETIN ALFA-EPBX (ESRD) 4,000 UNIT/ML VIAL SC SCH (16:48)
[2018-11-08] MEDS: HEPARIN 5,000 UNIT/1 ML VIAL SC SCH (21:10)
[2018-11-08] MEDS: PIPER-TAZO 2.25 GM (PMX) 50 ML IVPB SCH (22:48)
[2018-11-09] VITALS (103 sets, daily range): BP systolic 80–128; BP diastolic 44–86; PULSE 54–74; RESP 17–34
[2018-11-09] MEDS: NORepinephrine 8MG/250 ML (PMX 250 ML IV SCH ×2 (01:21→18:47)
[2018-11-09] MEDS: PIPER-TAZO 2.25 GM (PMX) 50 ML IVPB SCH (05:50)
[2018-11-09] MEDS: LANSOPRAZOLE 30 MG CAP GTB SCH (05:50)
[2018-11-09] MEDS: SOD CHLORIDE 0.45% 1,000 ML IV SCH ×3 (05:57→20:39)
[2018-11-09] MEDS: VANCOMYCIN 500 MG (PMX) 100 ML IVPB SCH (06:37)
--- NOTE | 2018-11-09 06:38 | PN ---
DATE: 11/09/2018 SUBJECTIVE: The patient remains critically ill on full ventilatory support, on pressor support. The patient's urinary output has been minimal. The patient has had noted diarrhea. No other acute even ts noted. OBJECTIVE: VITAL SIGNS: Blood pressure is 102/56, respirations 23, pulse 58, temperature is 98.6. HEENT: Head is normocephalic. NECK: Supple. HEART: Regular rate. LUNGS: Show diminished breath sounds at the base. ABDOMEN: Soft, nontender to palpation. EXTREMITIES: Negative for clubbing, cyanosis. No edema. DERMATOLOGIC: No rashes. MUSCULOSKELETAL: No joint effusion. NEUROLOGIC: The patient is obtunded. MEDICATIONS: The patient's medications have been reviewed. LABORATORY DATA: Has been reviewed. Urinalysis has been reviewed. IMAGING STUDIES: Have been reviewed. ASSESSMENT AND PLAN: 1. Oliguric acute kidney injury with previous baseline creatinine 1.0 mg/dL. Etiology of acute kidn ey injury is secondary to sepsis, possible acute tubular necrosis due to underlying sepsis and shock. The patient's renal ultrasound shows no evidence of obstruction. Urinalysis shows FENa greater mayito n 1%, and protein creatinine ratio approximately 2 grams per gram of creatinine, which is nonglomerul ar. The patient appears to be in maintenance phase of acute tubular necrosis as renal function and c reatinine remain stable. Urinary output still remains marginally low. Recommendation at this point is to continue current medical management. Continue pressor support, maintain MAP of 65. Continue a ntibiotics, continue IV fluids for volume expansion. No immediate need for renal replacement therapy at this time. We will monitor closely. 2. Hypernatremia. Etiology is likely secondary to insensible losses, decreased free water intake. There may be a likely component of nephrogenic diabetes insipidus is also contributing factors likely due to acute kidney injury, acute tubular necrosis. The patient's sodium levels have been improving with free water flushes and hypotonic fluid. We will continue free water flushes, adjust the rate t o 200 mL q.6h. and monitor serial sodium levels closely. 3. Hypokalemia. Continue to monitor and replete as needed. 4. Mixed acid base disorder. The patient had a metabolic acidosis and respiratory alkalosis. ABG w as reviewed. Continue to monitor. No need for bicarbonate therapy. 5. Anemia. Continue to monitor hemoglobin and hematocrit levels. 6. Mineral bone disorder, monitor calcium and phosphorus levels. 7. Septic shock secondary to urinary tract infection. Continue current medical management. Continu e antibiotics, pressor support, IV fluids. 8. History of Clostridium difficile. 9. Ventilator-dependent respiratory failure. Vent settings and ABG was reviewed. Continue to monit or. Follow up with pulmonary. 10. Dysphagia, status post PEG. Continue tube feeding. 11. Chronic encephalopathy. Continue to monitor. 12. History of brain tumor, status post craniotomy. 13. History of deep venous thrombosis. 14. Gastrointestinal and deep vein thrombosis prophylaxis. 15. Renal cyst. The patient will require likely CT scan of the abdomen and pelvis once clinically s table. We will continue to monitor. Please note I spent over 30 minutes of critical care time with this patient. Dictated By: ZAYDA LUCIANO DO NR/NTS Conf#: [id number] DID#: [id number] CC: CELINA HANCOCK MD;*EndCC*
[2018-11-09] MEDS: POTASSIUM CHLORIDE 100 ML IVPB SCH ×2 (06:46→09:07)
[2018-11-09] MEDS ORDERED: FLUCONAZOLE 200 MG (PMX) 100 ML IVPB SCH (07:00)
--- NOTE | 2018-11-09 08:19 | CONS ---
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 Yonatan maynard. Consultation Date/Type/Reason Admit Date/Time Nov 07, 2018 at 18:54 Date/Time of Note DATE: 11/09/18 TIME: 08:16 Hx of Present Illness Patient is in the intensive care unit at [facility] all information is taken from patient's medical records. Patient transferred from the nursing home unit with altered mental status but it is unclear what his baseline cognitive abilities are. Is a complicated past medical history of multiple major medical problems and sustained a CVA in the recent past. Patient PEG trached presented in shock currently on pressors diagnosed with bilateral pneumonia. Other comorbid medical problems include paroxysmal atrial fibrillation metabolic acidosis secondary to the above chronic ventilator dependent respiratory failure status post craniotomy secondary to pain tumor etiology unknown, G-tube placement and as I understand there is some discord amongst family members concerning ongoing goals of care. Reading over medical records family have been spoken with in the past and palliative care has been suggested but family decided against it. Unable to participate Past Medical History Medical History: high cholesterol, hypertension, other (History of stroke, history of brain tumor status post craniotomy) Home Meds Reported Medications Amiodarone Hcl* (Amiodarone Hcl*) 200 Mg Tablet, 400 MG GTB BID, #180 TAB 11/07/18 Metoprolol Succinate* (Toprol XL*) 25 Mg Tab.sr.24h, 25 MG GTB DAILY, #30 TAB 11/07/18 Ferrous Sulfate* (Ferrous Sulfate*) 325 Mg Tabec, 330 MG GTB BID, TAB 11/07/18 Epoetin fox* (Epogen*) 4,000 Unit/1 Ml Vial, 8000 UNIT SC [place], VIAL HOLD IF >10.5 11/07/18 Omeprazole* (Omeprazole*) 40 Mg Capsule., 40 MG GTB DAILY, #30 CAP 11/07/18 Cran/Vitc/Mannose/Inulin/Brom (Uti-Stat Liquid) 3,875 Mg/30 Ml Liquid, 3875 MG GTB DAILY 11/07/18 Cranberry Extract (Cranberry) 425 Mg Capsule, 425 MG GTB DAILY, CAP 11/07/18 Magaldrate/Simethicone* (Mag-Al Plus Suspension*) 30 Ml Oral.susp, 30 ML GTB Q4 PRN for GASTROINTESTINAL UPSET, ML 11/07/18 Vancomycin HCl in Dextrose 5 % (Vancomycin 750 mg/250 ml-D5w) 750 Mg/250 Ml Plast..bag, 250 MG IV Q6 11/07/18 Potassium Chloride* (K-Dur*) 20 Meq Tab.prt.sr, 40 MEQ GTB DAILY, TAB.SA 11/07/18 Lactobacillus Acidophilus/Pect (Acidophilus-Pectin Capsule) 1 Each Capsule, 1 EACH GTB DAILY, CAP MIX WITH APPLE SAUCE 11/07/18 Sulfamethoxazole/Trimethoprim* (Bactrim Ds* Tablet) 1 Each Tablet, 1 TAB GTB BID, TAB 11/07/18 Tramadol Hcl* (Ultram*) 50 Mg Tablet, 50 MG GTB BID PRN for PAIN MANAGEMENT, TAB 10/02/18 Magnesium Hydroxide* (Milk Of Magnesia*) 400 Mg/5 Ml Oral.susp, 30 ML GTB DAILY, ML 10/02/18 Ondansetron Hcl* (Zofran*) 4 Mg Tablet, 4 MG GTB Q6H PRN for NAUSEA AND OR VOMITING, TAB 10/02/18 Levothyroxine Sodium* (Levoxyl*) 50 Mcg Tablet, 50 MCG GTB BEFORE BREAKFAST, #30 TAB 10/02/18 Polyvinyl Alcohol (Tears Again) 15 Ml Drops, 1 DRP BOTH EYES TID, BOTTLE 10/02/18 Acetaminophen* (Acetaminophen*) 650 Mg Tablet, 650 MG GTB Q4 PRN for MILD PAIN LEVEL 1-3, #30 TAB FOR FEVER AND TRACH CHANGE 10/02/18 Acetaminophen* (Acetaminophen*) 500 MG Extra Strength Tablet, 1000 MG GTB Q4 PRN for MODERATE PAIN LEVEL 4-6, TAB 10/02/18 Zinc Sulfate* (Zinc Sulfate*) 220 Mg Cap, 220 MG GTB DAILY, CAP 10/02/18 Ascorbic Acid* (Vitamin C*) 500 Mg Capsule.sa, 500 MG GTB DAILY, CAP 10/02/18 Multivitamin with Minerals (Daily Vitamin Formula-Minerals) 1 Each Tablet, 1 EACH GTB DAILY, TAB 10/02/18 Amino Acids/Protein Hydrolys (Pro-Stat Awc Liquid) 30 Ml Liquid, 30 ML GTB DAILY SUGAR FREE 10/02/18 Na Phos,M-B/Na Phos,Di-Ba (ENEMA HRDQN-MF-HAD) 133 Ml Enema, 133 ML RC EVERY 2 DAYS PRN for CONSTIPATION, ENEMA 10/02/18 Bisacodyl (Dulcolax) 10 Mg Supp.rect, 10 MG RC DAILY PRN for CONSTIPATION, SUPP.RECT 10/02/18 Docusate Sodium* (Colace*) 100 Mg Capsule, 100 MG GTB BID, #60 CAP 10/02/18 Discontinued Reported Medications Magaldrate/Simethicone* (Mag-Al Plus Suspension*) 30 Ml Oral.susp, 30 ML GTB Q4 PRN for GASTROINTESTINAL UPSET, ML 10/02/18 Pantoprazole Sodium (Protonix) 40 Mg Granpkt.dr, 40 MG GTB DAILY MIX CONTENTS WITH APPLE SAUCE THEN FLUSH WITH 30ML APPLE JUICE 10/02/18 Atorvastatin* (Atorvastatin*) 40 Mg Tablet, 40 MG GTB QHS, #30 TAB 10/02/18 Discontinued Scripts Metoprolol Succinate* (Toprol XL*) 25 Mg Tab.sr.24h, 25 MG PO DAILY, #60 Prov:TANIYA LOVE 10/11/18 Amiodarone Hcl* (Amiodarone Hcl*) 200 Mg Tablet, 400 MG PO BID, #60 TAB Prov:TANIYA LOVE 10/11/18 [Vancomycin Oral Syringe] 50 MG/ML SOLN No Conflict Check, 125 MG GTB Q6 for 4 Days, #16 Prov:TANIYA LOVE 10/11/18 Medications Current Medications Ondansetron HCl (Zofran Inj) 4 mg Q6H PRN IV NAUSEA AND/OR VOMITING; Start 11/07/18 at 20:00 Albuterol (Ventolin Hfa) 4 puff Q2H RESP THERAPY PRN INH SHORTNESS OF BREATH; Start 11/07/18 at 20:00 Ipratropium [place] (Atrovent Hfa) 4 puff Q2H RESP THERAPY PRN INH SHORTNESS OF BREATH; Start 11/07/18 at 20:00 Vancomycin HCl (Vanco Iv Per Pharmacy) VANCOMYCIN PER PHARMACY PER PROTOCOL XX ; Start 11/07/18 at 22:30 Piperacillin Sod/ Tazobactam Sod 50 ml @ 200 mls/hr Q8 IVPB Last administered on 11/09/18at 05:50; Admin Dose 200 MLS/HR; Start 11/08/18 at 22:30 Acetaminophen (Tylenol Liquid) 650 mg Q4H PRN GTB MILD PAIN LEVEL 1-3; Start 11/08/18 at 03:30 Ascorbic Acid (Vitamin C) 500 mg DAILY GTB Last administered on 11/08/18at 09:59; Admin Dose 500 MG; Start 11/08/18 at 09:00 Epoetin Fox-epbx (Retacrit (Esrd)) 8,000 unit [place]RI@1700 SC Last administered on 11/08/18at 16:48; Admin Dose 8,000 UNIT; Start 11/08/18 at 17:00 Al Hydrox/Mg Hydrox/Simethicone (Mag-Al Plus) 30 ml Q4H PRN GTB GASTROINTESTINAL UPSET; Start 11/08/18 at 03:30 Magnesium Hydroxide (Milk Of Mag) 30 ml DAILY GTB Last administered on at 09:59; Admin Dose 30 ML; Start 11/08/18 at 09:00 Sodium Biphosphate/ Sodium Phosphate (Fleet Enema) 133 ml DAILY PRN [place] CONSTIPATION; Start 11/08/18 at 03:30 Ondansetron HCl (Zofran Tab) 4 mg Q6H PRN GTB NAUSEA AND/OR VOMITING; Start 11/08/18 at 03:30 Eye Lubricant (Artificial Tears Oph) 1 drop TID BOTH EYES Last administered on 11/08/18at 21:06; Admin Dose 1 DROP; Start 11/08/18 at 09:00 Tramadol HCl (Ultram) 50 mg BID PRN GTB PAIN; Start 11/08/18 at 03:30 Zinc Sulfate (Zinc Sulfate) 220 mg DAILY GTB Last administered on 11/08/18at 09:58; Admin Dose 220 MG; Start 11/08/18 at 09:00 Amiodarone HCl (Cordarone) 200 mg DAILY GTB Last administered on 11/08/18at 09:59; Admin Dose 200 MG; Start 11/08/18 at 09:00 Multivitamins/ Minerals (Theragran-M) 1 tab DAILY GTB Last administered on 11/08/18at 09:58; Admin Dose 1 TAB; Start 11/08/18 at 09:00 Lactobacillus Acidophilus/ Rhamnosus (Culturelle) 1 cap BID GTB Last administered on 11/08/18at 21:09; Admin Dose 1 CAP; Start 11/08/18 at 09:00 Lansoprazole (Prevacid) 30 mg DAILY@06 GTB Last administered on 11/09/18at 05:50; Admin Dose 30 MG; Start 11/08/18 at 06:00 Sodium Chloride 1,000 ml @ 100 mls/hr Q10H IV Last administered on 11/09/18 05:57; Admin Dose 100 MLS/HR; Start 11/08/18 at 09:30 Norepinephrine 250 ml @ 1.875 mls/ hr TITRATE IV Last administered on 11/09/18at 01:21; Admin Dose 15 MLS/HR; Start 11/08/18 at 11:00 Levothyroxine Sodium (Synthroid) 125 mcg BEFORE BREAKFAST GTB ; Start 11/09/18 at 07:00 Heparin Sodium (Porcine) (Heparin (5000 Units/1ml)) 5,000 unit BID SC Last administered on 11/08/18at 21:10; Admin Dose 5,000 UNIT; Start 11/08/18 at 21:00 Vancomycin HCl 100 ml @ 100 mls/hr Q24H IVPB Last administered on 11/09/18at 06:37; Admin Dose 100 MLS/HR; Start 11/09/18 at 07:00 Potassium Chloride 100 ml @ 50 mls/hr Q2H IVPB Last administered on 11/09/18at 06:46; Admin Dose 50 MLS/HR; Start 11/09/18 at 06:30; Stop 11/09/18 at 10:29 Fluconazole 100 ml @ 100 mls/hr Q24H IVPB ; Start 11/09/18 at 07:00 Allergies: Coded Allergies: No Known Allergy (Unverified , 11/07/18) Past Surgical History Past Surgical Hx: other (Home, status post craniotomy otherwise unknown) Family History Significant Family History: other (Unknown) Social History Alcohol Use: other (Unknown) Smoking Status: Unknown if ever smoked Drug Use: other (Unknown) Exam/Review of Systems Exam Vitals Vital Signs Date Temp Pulse Resp B/P (MAP) Pulse Ox O2 O2 Flow FiO2 Time Delivery Rate 11/09/18 58 20 94/51 (65) 100 Mechanical 06:15 Ventilator 11/09/18 30 05:00 11/09/18 97.0 04:00 Intake and Output 11/08/18 11/08/18 11/09/18 1515:00 23:00 07:00 IntakeIntake Total 1241.00 ml 1820.625 ml 1665 ml OutputOutput Total 55 ml 55 ml 25 ml BalanceBalance 1186.00 ml 1765.625 ml 1640 ml Constitutional: non-verbal, frail Psych: other (Cannot assess) Head: normocephalic, atraumatic Eyes: nl conjunctiva, nl lids, nl sclera, PERRL, other (Bilateral disconjugate gaze) ENMT: nl external ears & nose, nl lips & teeth, nl nasal mucosa & septum Neck: supple, non-tender Respiratory: clear to auscultation, normal air movement; No congested cough, No crackles/rales, No diminished breath sounds, No intercostal retraction, No labored breathing, No respirations, No tactile fremitus, No wheezing, No other Cardiovascular: regular rate and rhythm, nl pulses; No bruits, No diastolic murmur, No edema, No gallop, No irregular rhythm, No jugular venous distention (JVD), No murmurs/extra sounds, No rub, No systolic murmur, No S3, No S4, No other Gastrointestinal: soft, nl liver, spleen, non-tender; No ascites, No bowel sounds, No distended, No firm, No hepatomegaly, No mass, No rebound or guarding, No splenomegaly, No surgical scars, No tender, No other Extremities: normal pulses; No calf tenderness, No cyanosis, No clubbing, No edema, No pitting pedal edema, No palpable cord, No tenderness, No other Neurological: other (No response to any verbal or tactile stimulation, lateral disconjugate gaze sluggish oculocephalics nonpurposeful movements is overbreathing the ventilator) Results Result Diagram: 11/09/18 0400 11/09/18 0400 Results 24hrs Laboratory Tests Test 11/08/18 08:36 11/08/18 14:59 11/08/18 16:15 11/08/18 17:18 Sodium Level 154 H 146 H 145 H Potassium Level 2.9 *L 3.5 3.7 Chloride Level 131 H 124 H 124 H Carbon Dioxide 16 L 13 L 13 L Level Anion Gap 7 9 8 Blood Urea 11 11 11 Nitrogen Creatinine 2.78 H 2.86 H 2.87 H Est Glomerular Filtrat Rate mL/min Glucose Level 121 135 116 Calcium Level 7.7 L 7.4 L 7.5 L Urine Color MAGGIE Urine Clarity CLOUDY A Urine pH 5.0 Urine Specific 1.017 [place] Urine Ketones TRACE A Urine Nitrite NEGATIVE Urine Bilirubin NEGATIVE Urine NEGATIVE Urobilinogen Urine Leukocyte 3+ H Esterase Urine Microscopic 16 H RBC Urine Microscopic > 182 H WBC Urine Bacteria FEW A Urine Yeast MODERATE A (Budding) Urine Hemoglobin 2+ H Urine Osmolality 331 Urine Random 90.59 Creatinine Urine Random 92 H Sodium Urine Glucose NEGATIVE Urine Total 184.0 H Protein Test 11/08/18 21:04 11/09/18 04:00 11/09/18 04:51 Sodium Level 144 146 H Potassium Level 3.6 3.4 L Chloride Level 124 H 125 H Carbon Dioxide 12 L 13 L Level Anion Gap 8 8 Blood Urea 11 11 Nitrogen Creatinine 2.82 H 2.82 H Est Glomerular Filtrat Rate mL/min Glucose Level 104 77 Calcium Level 7.4 L 7.4 L White Blood Count 13.2 #H Red Blood Count 2.84 L Hemoglobin 7.8 L Hematocrit 25.8 L Mean Corpuscular 90.8 Volume Mean Corpuscular 27.5 L Hemoglobin Mean Corpuscular 30.2 L Hemoglobin Concen t Red Cell 23.2 H Distribution Width Platelet Count 194 # Mean Platelet 10.4 Volume Immature 1.200 H Granulocytes % Neutrophils % 65.9 Lymphocytes % 25.6 Monocytes % 6.6 Eosinophils % 0.5 Basophils % 0.2 Nucleated Red 0.5 H Blood Cells % Immature 0.160 H Granulocytes # Neutrophils # 8.7 H Lymphocytes # 3.4 H Monocytes # 0.9 Eosinophils # 0.1 Basophils # 0.0 Nucleated Red 0.1 H Blood Cells # Total Bilirubin 0.3 Direct Bilirubin 0.00 Indirect 0.3 Bilirubin Aspartate Amino 22 Transf (AST/SGOT) Alanine 19 Aminotransferase (ALT/SGPT) Alkaline 137 H Phosphatase Total Protein 5.0 L Albumin 1.9 L Globulin 3.10 Albumin/Globulin 0.61 Ratio Vancomycin Level < 5.0 L Trough Lab Scanned BLOOD TRANSFUSIO Report N Medications Medication Current Medications Ondansetron HCl (Zofran Inj) 4 mg Q6H PRN IV NAUSEA AND/OR VOMITING; Start 11/07/18 at 20:00 Albuterol (Ventolin Hfa) 4 puff Q2H RESP THERAPY PRN INH SHORTNESS OF BREATH; Start 11/07/18 at 20:00 Ipratropium [place] (Atrovent Hfa) 4 puff Q2H RESP THERAPY PRN INH SHORTNESS OF BREATH; Start 11/07/18 at 20:00 Vancomycin HCl (Vanco Iv Per Pharmacy) VANCOMYCIN PER PHARMACY PER PROTOCOL XX ; Start 11/07/18 at 22:30 Piperacillin Sod/ Tazobactam Sod 50 ml @ 200 mls/hr Q8 IVPB Last administered on 11/09/18at 05:50; Admin Dose 200 MLS/HR; Start 11/08/18 at 22:30 Acetaminophen (Tylenol Liquid) 650 mg Q4H PRN GTB MILD PAIN LEVEL 1-3; Start 11/08/18 at 03:30 Ascorbic Acid (Vitamin C) 500 mg DAILY GTB Last administered on 11/08/18at 09:59; Admin Dose 500 MG; Start 11/08/18 at 09:00 Epoetin Fox-epbx (Retacrit (Esrd)) 8,000 unit [place]@1700 SC Last administered on 11/08/18at 16:48; Admin Dose 8,000 UNIT; Start 11/08/18 at 17:00 Al Hydrox/Mg Hydrox/Simethicone (Mag-Al Plus) 30 ml Q4H PRN GTB GASTROINTESTI NAL UPSET; Start 11/08/18 at 03:30 Magnesium Hydroxide (Milk Of Mag) 30 ml DAILY GTB Last administered on 11/08/18at 09:59; Admin Dose 30 ML; Start 11/08/18 at 09:00 Sodium Biphosphate/ Sodium Phosphate (Fleet Enema) 133 ml DAILY PRN [place] CONSTIPATION; Start 11/08/18 at 03:30 Ondansetron HCl (Zofran Tab) 4 mg Q6H PRN GTB NAUSEA AND/OR VOMITING; Start 11/08/18 at 03:30 Eye Lubricant (Artificial Tears Oph) 1 drop TID BOTH EYES Last administered on 11/08/18 21:06; Admin Dose 1 DROP; Start 11/08/18 at 09:00 Tramadol HCl (Ultram) 50 mg BID PRN GTB PAIN; Start 11/08/18 at 03:30 Zinc Sulfate (Zinc Sulfate) 220 mg DAILY GTB Last administered on 11/08/18 09:58; Admin Dose 220 MG; Start 11/08/18 at 09:00 Amiodarone HCl (Cordarone) 200 mg DAILY GTB Last administered on 11/08/18 09:59; Admin Dose 200 MG; Start 11/08/18 at 09:00 Multivitamins/ Minerals (Theragran-M) 1 tab DAILY GTB Last administered on 11/08/18 09:58; Admin Dose 1 TAB; Start 11/08/18 at 09:00 Lactobacillus Acidophilus/ Rhamnosus (Culturelle) 1 cap BID GTB Last administered on 11/08/18 21:09; Admin Dose 1 CAP; Start 11/08/18 at 09:00 Lansoprazole (Prevacid) 30 mg DAILY@06 GTB Last administered on 11/09/18 05:50; Admin Dose 30 MG; Start 11/08/18 at 06:00 Sodium Chloride 1,000 ml @ 100 mls/hr Q10H IV Last administered on 11/09/18 05:57; Admin Dose 100 MLS/HR; Start 11/08/18 at 09:30 Norepinephrine 250 ml @ 1.875 mls/ hr TITRATE IV Last administered on 11/09/18 01:21; Admin Dose 15 MLS/HR; Start 11/08/18 at 11:00 Levothyroxine Sodium (Synthroid) 125 mcg BEFORE BREAKFAST GTB ; Start 11/09/18 at 07:00 Heparin Sodium (Porcine) (Heparin (5000 Units/1ml)) 5,000 unit BID SC Last administered on 11/08/18 21:10; Admin Dose 5,000 UNIT; Start 11/08/18 at 21:00 Vancomycin HCl 100 ml @ 100 mls/hr Q24H IVPB Last administered on 11/09/18 06:37; Admin Dose 100 MLS/HR; Start 11/09/18 at 07:00 Potassium Chloride 100 ml @ 50 mls/hr Q2H IVPB Last administered on 11/09/18at 06:46; Admin Dose 50 MLS/HR; Start 11/09/18 at 06:30; Stop 11/09/18 at 10:29 Fluconazole 100 ml @ 100 mls/hr Q24H IVPB ; Start 11/09/18 at 07:00 REMA STEINER Nov 09, 2018 08:19
--- NOTE | 2018-11-09 08:25 | CONS ---
Assessment/Plan Assessment/Plan Assessment/Plan (Daily) Ventilator setting; AC of 12, tidal volume 450, PEEP of 0, 30% FiO2. Patient is currently on Levophed at 8 mics per minute. Assessment and recommendations; 1. Patient with history of VDRF and chronic encephalopathy admitted for sepsis due to pneumonia. 2. Acute on chronic renal injury with intravascular volume depletion. 3. Hypernatremia with interval improvement. 4. History of brain tumor with history of craniotomy. 5. Anemia. 6. History of DVT. 7. History of hypothyroidism. 8. Chronic atrial fibrillation. Continue current supportive care. Wean down Levophed as tolerated. Obtain follow-up chest x-ray 24 hours. Overall prognosis is very poor. Consultation Date/Type/Reason Admit Date/Time Nov 07, 2018 at 18:54 Initial Consult Date 11/08/18 Type of Consult Pulmonary/critical care Patient is an 83-year-old male with a history of chronic respiratory failure which is ventilator dependent admitted for sepsis. Patient has been adequately fluid resuscitated and started on appropriate antimicrobial regimen. Patient still remains hypotensive requiring Levophed. Patient does have history of advanced dementia and was unable to give any history by himself whatsoever. Patient however did not appear to be in any distress. Past medical history; 1. History of dementia with a history of brain tumor. 2. VDRF. 3. History of tracheostomy and G-tube placement. 4. History of DVT. 5. History of paroxysmal atrial fibrillation. 6. History of hypothyroidism. Medications; reviewed. Allergies; none. Social history, family history, occupational histories are not available. Review of system; unable to be obtained. General exam; elderly male, on ventilator via tracheostomy, awake but noncommunicative. Currently in no distress. Requesting Provider: KYLE SEVERINO Date/Time of Note DATE: 11/09/18 TIME: 08:23 24 HR Interval Summary Free Text/Dictation Patient's condition remains critical. Remains mildly hypotensive despite adequate fluid resuscitation. General exam; elderly male, on ventilator via tracheostomy, unresponsive, currently in no distress. Exam/Review of Systems Exam Vitals Vital Signs Date Temp Pulse Resp B/P (MAP) Pulse Ox O2 O2 Flow FiO2 Time Delivery Rate 11/09/18 58 20 94/51 (65) 100 Mechanical 06:15 Ventilator 11/09/18 30 05:00 11/09/18 97.0 04:00 Intake and Output 11/08/18 11/08/18 11/09/18 1515:00 23:00 07:00 IntakeIntake Total 1241.00 ml 1820.625 ml 1665 ml OutputOutput Total 55 ml 55 ml 25 ml BalanceBalance 1186.00 ml 1765.625 ml 1640 ml Exam H ENT exam; supple neck, no JVD. No lymphadenopathy. Midline trachea. No thyromegaly. Tracheostomy in place. Patient has fair dentition. Pupils are small bilaterally. No neck masses. Chest exam; diminished breath sounds bilaterally. S1-S2 audible, no murmurs. Irregular rhythm. Abdomen exam; soft, no organomegaly. G-tube in place. Bowel sounds are audible. Extremity exam; no peripheral edema. [employer] WORK[employer] exam; patient remains unresponsive. Results Result Diagram: 11/09/18 0400 11/09/18 0400 Results 24hrs Laboratory Tests Test 11/08/18 08:36 11/08/18 14:59 11/08/18 16:15 11/08/18 17:18 Sodium Level 154 H 146 H 145 H Potassium Level 2.9 *L 3.5 3.7 Chloride Level 131 H 124 H 124 H Carbon Dioxide 16 L 13 L 13 L Level Anion Gap 7 9 8 Blood Urea 11 11 11 Nitrogen Creatinine 2.78 H 2.86 H 2.87 H Est Glomerular Filtrat Rate mL/min Glucose Level 121 135 116 Calcium Level 7.7 L 7.4 L 7.5 L Urine Color MAGGIE Urine Clarity CLOUDY A Urine pH 5.0 Urine Specific 1.017 [place] Urine Ketones TRACE A Urine Nitrite NEGATIVE Urine Bilirubin NEGATIVE Urine NEGATIVE Urobilinogen Urine Leukocyte 3+ H Esterase Urine Microscopic 16 H RBC Urine Microscopic > 182 H WBC Urine Bacteria FEW A Urine Yeast MODERATE A (Budding) Urine Hemoglobin 2+ H Urine Osmolality 331 Urine Random 90.59 Creatinine Urine Random 92 H Sodium Urine Glucose NEGATIVE Urine Total 184.0 H Protein Test 11/08/18 21:04 11/09/18 04:00 11/09/18 04:51 Sodium Level 144 146 H Potassium Level 3.6 3.4 L Chloride Level 124 H 125 H Carbon Dioxide 12 L 13 L Level Anion Gap 8 8 Blood Urea 11 11 Nitrogen Creatinine 2.82 H 2.82 H Est Glomerular Filtrat Rate mL/min Glucose Level 104 77 Calcium Level 7.4 L 7.4 L White Blood Count 13.2 #H Red Blood Count 2.84 L Hemoglobin 7.8 L Hematocrit 25.8 L Mean Corpuscular 90.8 Volume Mean Corpuscular 27.5 L Hemoglobin Mean Corpuscular 30.2 L Hemoglobin Concen t Red Cell 23.2 H Distribution Width Platelet Count 194 # Mean Platelet 10.4 Volume Immature 1.200 H Granulocytes % Neutrophils % 65.9 Lymphocytes % 25.6 Monocytes % 6.6 Eosinophils % 0.5 Basophils % 0.2 Nucleated Red 0.5 H Blood Cells % Immature 0.160 H Granulocytes # Neutrophils # 8.7 H Lymphocytes # 3.4 H Monocytes # 0.9 Eosinophils # 0.1 Basophils # 0.0 Nucleated Red 0.1 H Blood Cells # Total Bilirubin 0.3 Direct Bilirubin 0.00 Indirect 0.3 Bilirubin Aspartate Amino 22 Transf (AST/SGOT) Alanine 19 Aminotransferase (ALT/SGPT) Alkaline 137 H Phosphatase Total Protein 5.0 L Albumin 1.9 L Globulin 3.10 Albumin/Globulin 0.61 Ratio Vancomycin Level < 5.0 L Trough Lab Scanned BLOOD TRANSFUSIO Report N Medications Medication Current Medications Ondansetron HCl (Zofran Inj) 4 mg Q6H PRN IV NAUSEA AND/OR VOMITING; Start 11/07/18 at 20:00 Albuterol (Ventolin Hfa) 4 puff Q2H RESP THERAPY PRN INH SHORTNESS OF BREATH; Start 11/07/18 at 20:00 Ipratropium [place] (Atrovent Hfa) 4 puff Q2H RESP THERAPY PRN INH SHORTNESS OF BREATH; Start 11/07/18 at 20:00 Vancomycin HCl (Vanco Iv Per Pharmacy) VANCOMYCIN PER PHARMACY PER PROTOCOL XX ; Start 11/07/18 at 22:30 Piperacillin Sod/ Tazobactam Sod 50 ml @ 200 mls/hr Q8 IVPB Last administered on 11/09/18at 05:50; Admin Dose 200 MLS/HR; Start 11/08/18 at 22:30 Acetaminophen (Tylenol Liquid) 650 mg Q4H PRN GTB MILD PAIN LEVEL 1-3; Start 11/08/18 at 03:30 Ascorbic Acid (Vitamin C) 500 mg DAILY GTB Last administered on 11/08/18at 09:59; Admin Dose 500 MG; Start 11/08/18 at 09:00 Epoetin [place]-epbx (Retacrit (Esrd)) 8,000 unit [place]@1700 SC Last administered on 11/08/18 16:48; Admin Dose 8,000 UNIT; Start 11/08/18 at 17:00 Al Hydrox/Mg Hydrox/Simethicone (Mag-Al Plus) 30 ml Q4H PRN GTB GASTROINTESTINAL UPSET; Start 11/08/18 at 03:30 Magnesium Hydroxide (Milk Of Mag) 30 ml DAILY GTB Last administered on 11/08/18 09:59; Admin Dose 30 ML; Start 11/08/18 at 09:00 Sodium Biphosphate/ Sodium Phosphate (Fleet Enema) 133 ml DAILY PRN [place] CONS TIPATION; Start 11/08/18 at 03:30 Ondansetron HCl (Zofran Tab) 4 mg Q6H PRN GTB NAUSEA AND/OR VOMITING; Start 11/08/18 at 03:30 Eye Lubricant (Artificial Tears Oph) 1 drop TID BOTH EYES Last administered on 11/08/18 21:06; Admin Dose 1 DROP; Start 11/08/18 at 09:00 Tramadol HCl (Ultram) 50 mg BID PRN GTB PAIN; Start 11/08/18 at 03:30 Zinc Sulfate (Zinc Sulfate) 220 mg DAILY GTB Last administered on 11/08/18 09:58; Admin Dose 220 MG; Start 11/08/18 at 09:00 Amiodarone HCl (Cordarone) 200 mg DAILY GTB Last administered on 11/08/18 09:59; Admin Dose 200 MG; Start 11/08/18 at 09:00 Multivitamins/ Minerals (Theragran-M) 1 tab DAILY GTB Last administered on 11/08/18 09:58; Admin Dose 1 TAB; Start 11/08/18 at 09:00 Lactobacillus Acidophilus/ Rhamnosus (Culturelle) 1 cap BID GTB Last ad ministered on 11/08/18 21:09; Admin Dose 1 CAP; Start 11/08/18 at 09:00 Lansoprazole (Prevacid) 30 mg DAILY@06 GTB Last administered on 11/09/18 05:50; Admin Dose 30 MG; Start 11/08/18 at 06:00 Sodium Chloride 1,000 ml @ 100 mls/hr Q10H IV Last administered on 11/09/18 05:57; Admin Dose 100 MLS/HR; Start 11/08/18 at 09:30 Norepinephrine 250 ml @ 1.875 mls/ hr TITRATE IV Last administered on 11/09/18at 01:21; Admin Dose 15 MLS/HR; Start 11/08/18 at 11:00 Levothyroxine Sodium (Synthroid) 125 mcg BEFORE BREAKFAST GTB ; Start 11/09/18 at 07:00 Heparin Sodium (Porcine) (Heparin (5000 Units/1ml)) 5,000 unit BID SC Last administered on 11/08/18at 21:10; Admin Dose 5,000 UNIT; Start 11/08/18 at 21:00 Vancomycin HCl 100 ml @ 100 mls/hr Q24H IVPB Last administered on 11/09/18at 06:37; Admin Dose 100 MLS/HR; Start 11/09/18 at 07:00 Potassium Chloride 100 ml @ 50 mls/hr Q2H IVPB Last administered on 11/09/18at 06:46; Admin Dose 50 MLS/HR; Start 11/09/18 at 06:30; Stop 11/09/18 at 10:29 Fluconazole 100 ml @ 100 mls/hr Q24H IVPB ; Start 11/09/18 at 07:00 SADI BERGER Nov 09, 2018 08:25
[2018-11-09] MEDS: MAGNESIUM HYDROXIDE 30ML CUP GTB SCH (09:00)
[2018-11-09] MEDS: AMIODARONE 200 MG TAB GTB SCH (09:00)
[2018-11-09] MEDS: LEVOTHYROXINE 125 MCG TAB GTB SCH (09:06)
[2018-11-09] MEDS: LACTOBACILLUS RHAMNOSUS CAP GTB SCH ×2 (09:08→21:22)
[2018-11-09] MEDS: ZINC SULFATE 220 MG CAP GTB SCH (09:08)
[2018-11-09] MEDS: ASCORBIC ACID 500 MG TAB GTB SCH (09:08)
[2018-11-09] MEDS: ARTIFICIAL TEARS 15 ML OPH BOTH EYES SCH ×3 (09:09→21:23)
[2018-11-09] MEDS: HEPARIN 5,000 UNIT/1 ML VIAL SC SCH ×2 (09:12→21:26)
--- NOTE | 2018-11-09 10:05 | EEG ---
EEG NOTE Report Details DATE OF TEST: 11/09/18 HISTORY: The patient is a 83-year-old M who presents with altered mental status. This EEG is requested to rule out nonconvulsive status epilepticus. SEDATION: None. CONDITIONS OF RECORDING: This EEG was recorded digitally on the [employer] machine, using the International 10-20 System of electrodes plus anterior temporals and [place]. STATES SAMPLED: Lethargic. FINDINGS: The background is somewhat discontinuous, predominated by polymorphic delta activity. The normal [id number] frequency-amplitude gradient was absent. Photic stimulation does not elicit any definite driving responses or epileptiform discharges. Hyperventilation was not performed. There are frequent triphasic waves. IMPRESSION: Abnormal electroencephalogram due to: severe diffuse slowing and triphasic waves.. COMMENT: The slowing of the background indicates severe, diffuse cortical dysfunction of nonspecific etiology. Triphasic waves are a nonspecific pattern found in metabolic and other encephalopathies. STACIA ENRIQUE Nov 09, 2018 10:05
[2018-11-09] MEDS: MULTIVITAMINS 30 ML CUP GTB SCH (10:59)
--- NOTE | 2018-11-09 11:07 | PN ---
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 The patient is also said to have had a CVA in the past. Is currently managed as follows: 1. Severe sepsis with shock thought to be secondary to bilateral pneumonia 2. Septic shock 3. Acute renal insufficiency with associated metabolic acidosis 4. Paroxysmal atrial fibrillation currently rate controlled 5. Recent C. difficile colitis as well as DVT, September 2018 6. Chronic ventilator dependent respiratory failure status post trach 7. Hx of bran tumor s/p craniotomy about 3 months ago and prev CVA with chronic encephalopathy -family has noted minimal improvements in the last 3months, patient is moving LUE a bit and opens eys spontaneously 8. Chronic neurogenic dysphagia on tube feedings 9. Chronic cardiomyopathy with last known EF of 35% 10. Hypokalemia 11. Severe hyponatremia likely related to dehydration 12. Poorly controlled hypothyroidism 13. Chronic hypochromic anemia Plan: -Continue ICU monitoring and management -Continue empiric broad-spectrum antibiotics and follow-up blood, urine, respiratory cultures -Wean off pressor support as tolerated -Dietary consults to begin tube feeds -Continue IV fluid hydration and free water flushes per nephrology -Continue serial lab monitoring and close electrolyte management -Further interventions per clinical course Overall prognosis poor, but short and long-term, strongly recommend palliative care however it looks like this has been discussed with family multiple times and they are not in agreement, further interventions will depend on clinical course. CRITICAL CARE TIME: >35 mins of which more than half was spent at the bedside and during counselling Result Diagram: 11/09/18 0400 11/09/18 0400 Results 24hrs Laboratory Tests Test 11/08/18 14:59 11/08/18 16:15 11/08/18 17:18 11/08/18 21:04 Sodium Level 146 H 145 H 144 Potassium Level 3.5 3.7 3.6 Chloride Level 124 H 124 H 124 H Carbon Dioxide 13 L 13 L 12 L Level Anion Gap 9 8 8 Blood Urea 11 11 11 Nitrogen Creatinine 2.86 H 2.87 H 2.82 H Est Glomerular Filtrat Rate mL/min Glucose Level 135 116 104 Calcium Level 7.4 L 7.5 L 7.4 L Urine Color MAGGIE Urine Clarity CLOUDY A Urine pH 5.0 Urine Specific 1.017 [place] Urine Ketones TRACE A Urine Nitrite NEGATIVE Urine Bilirubin NEGATIVE Urine NEGATIVE Urobilinogen Urine Leukocyte 3+ H Esterase Urine Microscopic 16 H RBC Urine Microscopic > 182 H WBC Urine Bacteria FEW A Urine Yeast MODERATE A (Budding) Urine Hemoglobin 2+ H Urine Osmolality 331 Urine Random 90.59 Creatinine Urine Random 92 H Sodium Urine Glucose NEGATIVE Urine Total 184.0 H Protein Test 11/09/18 04:00 11/09/18 04:51 White Blood Count 13.2 #H Red Blood Count 2.84 L Hemoglobin 7.8 L Hematocrit 25.8 L Mean Corpuscular 90.8 Volume Mean Corpuscular 27.5 L Hemoglobin Mean Corpuscular 30.2 L Hemoglobin Concen t Red Cell 23.2 H Distribution Width Platelet Count 194 # Mean Platelet 10.4 Volume Immature 1.200 H Granulocytes % Neutrophils % 65.9 Lymphocytes % 25.6 Monocytes % 6.6 Eosinophils % 0.5 Basophils % 0.2 Nucleated Red 0.5 H Blood Cells % Immature 0.160 H Granulocytes # Neutrophils # 8.7 H Lymphocytes # 3.4 H Monocytes # 0.9 Eosinophils # 0.1 Basophils # 0.0 Nucleated Red 0.1 H Blood Cells # Sodium Level 146 H Potassium Level 3.4 L Chloride Level 125 H Carbon Dioxide 13 L Level Anion Gap 8 Blood Urea 11 Nitrogen Creatinine 2.82 H Est Glomerular Filtrat Rate mL/min Glucose Level 77 Calcium Level 7.4 L Total Bilirubin 0.3 Direct Bilirubin 0.00 Indirect 0.3 Bilirubin Aspartate Amino 22 Transf (AST/SGOT) Alanine 19 Aminotransferase (ALT/SGPT) Alkaline 137 H Phosphatase Total Protein 5.0 L Albumin 1.9 L Globulin 3.10 Albumin/Globulin 0.61 Ratio Vancomycin Level < 5.0 L Trough Lab Scanned BLOOD TRANSFUSIO Report N Subjective 24 Hr Interval Summary Free Text/Dictation remains on pressor support Subjective hx not possible: pt non-verbal, pt critical status Exam/Review of Systems Exam Vitals Vital Signs Date Temp Pulse Resp B/P (MAP) Pulse Ox O2 O2 Flow FiO2 Time Delivery Rate 11/09/18 58 20 94/51 (65) 100 Mechanical 06:15 Ventilator 11/09/18 30 05:00 11/09/18 97.0 04:00 Intake and Output 11/08/18 11/08/18 11/09/18 1515:00 23:00 07:00 IntakeIntake Total 1241.00 ml 1820.625 ml 1665 ml OutputOutput Total 55 ml 55 ml 25 ml BalanceBalance 1186.00 ml 1765.625 ml 1640 ml Exam Constitutional: non-verbal, other (cachetic , elderly, Patient unresponsive, not following commands or tracking), Eyes occasionally open spontaneously, No oriented, No distress Psych: other (unable to assess) Head: normocephalic, atraumatic Eyes: PERRL, No icteric ENMT: trach to vent No mucosa pink and moist (dry), mouth open Respiratory: diminished breath sounds, + bibasal crackles No labored breathing Cardiovascular: regular rate and rhythm, No murmurs/extra sounds Gastrointestinal: soft, non-tender, bowel sounds, other (PEG tube noted with no cellulitis or discharge) Genitourinary - male: nl external genitalia, lugo Extremities: R side: Chronically contracted on the R paresis minimal L foot withdrawal with stimulation Neurological: altered, eyes opening spontaneously but no tracking or following commands), No nl mental status, No nl speech, No nl strength Results Results 24hrs Laboratory Tests Test 11/08/18 14:59 11/08/18 16:15 11/08/18 17:18 11/08/18 21:04 Sodium Level 146 H 145 H 144 Potassium Level 3.5 3.7 3.6 Chloride Level 124 H 124 H 124 H Carbon Dioxide 13 L 13 L 12 L Level Anion Gap 9 8 8 Blood Urea 11 11 11 Nitrogen Creatinine 2.86 H 2.87 H 2.82 H Est Glomerular Filtrat Rate mL/min Glucose Level 135 116 104 Calcium Level 7.4 L 7.5 L 7.4 L Urine Color MAGGIE Urine Clarity CLOUDY A Urine pH 5.0 Urine Specific 1.017 [place] Urine Ketones TRACE A Urine Nitrite NEGATIVE Urine Bilirubin NEGATIVE Urine NEGATIVE Urobilinogen Urine Leukocyte 3+ H Esterase Urine Microscopic 16 H RBC Urine Microscopic > 182 H WBC Urine Bacteria FEW A Urine Yeast MODERATE A (Budding) Urine Hemoglobin 2+ H Urine Osmolality 331 Urine Random 90.59 Creatinine Urine Random 92 H Sodium Urine Glucose NEGATIVE Urine Total 184.0 H Protein Test 11/09/18 04:00 11/09/18 04:51 White Blood Count 13.2 #H Red Blood Count 2.84 L Hemoglobin 7.8 L Hematocrit 25.8 L Mean Corpuscular 90.8 Volume Mean Corpuscular 27.5 L Hemoglobin Mean Corpuscular 30.2 L Hemoglobin Concen t Red Cell 23.2 H Distribution Width Platelet Count 194 # Mean Platelet 10.4 Volume Immature 1.200 H Granulocytes % Neutrophils % 65.9 Lymphocytes % 25.6 Monocytes % 6.6 Eosinophils % 0.5 Basophils % 0.2 Nucleated Red 0.5 H Blood Cells % Immature 0.160 H Granulocytes # Neutrophils # 8.7 H Lymphocytes # 3.4 H Monocytes # 0.9 Eosinophils # 0.1 Basophils # 0.0 Nucleated Red 0.1 H Blood Cells # Sodium Level 146 H Potassium Level 3.4 L Chloride Level 125 H Carbon Dioxide 13 L Level Anion Gap 8 Blood Urea 11 Nitrogen Creatinine 2.82 H Est Glomerular Filtrat Rate mL/min Glucose Level 77 Calcium Level 7.4 L Total Bilirubin 0.3 Direct Bilirubin 0.00 Indirect 0.3 Bilirubin Aspartate Amino 22 Transf (AST/SGOT) Alanine 19 Aminotransferase (ALT/SGPT) Alkaline 137 H Phosphatase Total Protein 5.0 L Albumin 1.9 L Globulin 3.10 Albumin/Globulin 0.61 Ratio Vancomycin Level < 5.0 L Trough Lab Scanned BLOOD TRANSFUSIO Report N Medications Medication Current Medications Ondansetron HCl (Zofran Inj) 4 mg Q6H PRN IV NAUSEA AND/OR VOMITING; Start 11/07/18 at 20:00 Albuterol (Ventolin Hfa) 4 puff Q2H RESP THERAPY PRN INH SHORTNESS OF BREATH; Start 11/07/18 at 20:00 Ipratropium [place] (Atrovent Hfa) 4 puff Q2H RESP THERAPY PRN INH SHORTNESS OF BREATH; Start 11/07/18 at 20:00 Vancomycin HCl (Vanco Iv Per Pharmacy) VANCOMYCIN PER PHARMACY PER PROTOCOL XX ; Start 11/07/18 at 22:30 Piperacillin Sod/ Tazobactam Sod 50 ml @ 200 mls/hr Q8 IVPB Last administered on 11/09/18at 05:50; Admin Dose 200 MLS/HR; Start 11/08/18 at 22:30 Acetaminophen (Tylenol Liquid) 650 mg Q4H PRN GTB MILD PAIN LEVEL 1-3; Start 11/08/18 at 03:30 Ascorbic Acid (Vitamin C) 500 mg DAILY GTB Last administered on 11/09/18at 09:08; Admin Dose 500 MG; Start 11/08/18 at 09:00 Epoetin Adrian-epbx (Retacrit (Esrd)) 8,000 unit MONWEDFRI@1700 SC Last administered on 11/08/18at 16:48; Admin Dose 8,000 UNIT; Start 11/08/18 at 17:00 Al Hydrox/Mg Hydrox/Simethicone (Mag-Al Plus) 30 ml Q4H PRN GTB G ASTROINTESTINAL UPSET; Start 11/08/18 at 03:30 Magnesium Hydroxide (Milk Of Mag) 30 ml DAILY GTB Last administered on 11/08/18at 09:59; Admin Dose 30 ML; Start 11/08/18 at 09:00 Sodium Biphosphate/ Sodium Phosphate (Fleet Enema) [address] CONSTIPATION; Start 11/08/18 at 03:30 Ondansetron HCl (Zofran Tab) 4 mg Q6H PRN GTB NAUSEA AND/OR VOMITING; Start 11/08/18 at 03:30 Eye Lubricant (Artificial Tears Oph) 1 drop TID BOTH EYES Last administered on 11/09/18at 09:09; Admin Dose 1 DROP; Start 11/08/18 at 09:00 Tramadol HCl (Ultram) 50 mg BID PRN GTB PAIN; Start 11/08/18 at 03:30 Zinc Sulfate (Zinc Sulfate) 220 mg DAILY GTB Last administered on 11/09/18at 09:08; Admin Dose 220 MG; Start 11/08/18 at 09:00 Amiodarone HCl (Cordarone) 200 mg DAILY GTB Last administered on 11/08/18at 09: 59; Admin Dose 200 MG; Start 11/08/18 at 09:00 Lactobacillus Acidophilus/ Rhamnosus (Culturelle) 1 cap BID GTB Last administered on 11/09/18 09:08; Admin Dose 1 CAP; Start 11/08/18 at 09:00 Lansoprazole (Prevacid) 30 mg DAILY@06 GTB Last administered on 11/09/18 05:50; Admin Dose 30 MG; Start 11/08/18 at 06:00 Sodium Chloride 1,000 ml @ 100 mls/hr Q10H IV Last administered on 11/09/18 05:57; Admin Dose 100 MLS/HR; Start 11/08/18 at 09:30 Norepinephrine 250 ml @ 1.875 mls/ hr TITRATE IV Last administered on 11/09/18 01:21; Admin Dose 15 MLS/HR; Start 11/08/18 at 11:00 Levothyroxine Sodium (Synthroid) 125 mcg BEFORE BREAKFAST GTB Last administered on 11/09/18 09:06; Admin Dose 125 MCG; Start 11/09/18 at 07:00 Heparin Sodium (Porcine) (Heparin (5000 Units/1ml)) 5,000 unit BID SC Last administered on 11/09/18 09:12; Admin Dose 5,000 UNIT; Start 11/08/18 at 21:00 Vancomycin HCl 100 ml @ 100 mls/hr Q24H IVPB Last administered on 11/09/18 06:37; Admin Dose 100 MLS/HR; Start 11/09/18 at 07:00 Fluconazole 100 ml @ 100 mls/hr Q24H IVPB Last administered on 11/09/18 09:38; Admin Dose 100 MLS/HR; Start 11/09/18 at 07:00 Multivitamins (Multivitamin) 30 ml DAILY GTB ; Start 11/09/18 at 10:00 KYLE SEVERINO Nov 09, 2018 10:41
--- NOTE | 2018-11-09 11:18 | CONS ---
Assessment/Plan Assessment/Plan Hospital Course (Demo Recall) Patient remains on Levophed drip no fevers overnight WBC 13.2 H&H 7.8 and 25.8 platelets 194 neutrophils 65.9. BUN 18 creatinine 2.82. Indwelling: Tracheostomy, PEG, Mcintyre, left subclavian triple-lumen catheter Microbiology: Blood cultures remain negative. Urine culture pending Antimicrobials: Vanco, Zosyn, fluconazole Chest x-ray this morning revealed slightly increased infrahilar infiltrate. Physical examination: Chronically ill-appearing elderly man who is in no distress. Head atraumatic normocephalic neck is supple tracheostomy present chest rise symmetrical breath sounds diminished bases. Heart: S1-S2. Abdomen soft bowel sounds present. Assessment: 1. Septic shock 2. Urinary tract infection==>+ yeast on UA 3. HCAP 4. ARF 5. Hx brain tumor, s/p craniotoy 6. Hx DVT 7. L kidney lesion, poss malignant 8. Atrial fibrillation Plan: Patient remains hemodynamically unstable we are going to send urine and sputum cultures, change fluconazole to Cancidas due to interaction with amiodaron, change Zosyn to Merrem Consultation Date/Type/Reason Admit Date/Time Nov 07, 2018 at 18:54 Initial Consult Date 11/08/18 Type of Consult id Requesting Provider: KYLE SEVERINO Date/Time of Note DATE: 11/09/18 TIME: 11:18 Exam/Review of Systems Exam Vitals Vital Signs Date Temp Pulse Resp B/P (MAP) Pulse Ox O2 O2 Flow FiO2 Time Delivery Rate 11/09/18 56 08:00 11/09/18 20 94/51 (65) 100 Mechanical 06:15 Ventilator 11/09/18 30 05:00 11/09/18 97.0 04:00 Intake and Output 11/08/18 11/08/18 11/09/18 1515:00 23:00 07:00 IntakeIntake Total 1241.00 ml 1820.625 ml 1665 ml OutputOutput Total 55 ml 55 ml 25 ml BalanceBalance 1186.00 ml 1765.625 ml 1640 ml Results Result Diagram: 11/09/18 0400 11/09/18 0400 Results 24hrs Laboratory Tests Test 11/08/18 14:59 11/08/18 16:15 7/29/19 17:18 11/08/18 21:04 Sodium Level 146 H 145 H 144 Potassium Level 3.5 3.7 3.6 Chloride Level 124 H 124 H 124 H Carbon Dioxide 13 L 13 L 12 L Level Anion Gap 9 8 8 Blood Urea 11 11 11 Nitrogen Creatinine 2.86 H 2.87 H 2.82 H Est Glomerular Filtrat Rate mL/min Glucose Level 135 116 104 Calcium Level 7.4 L 7.5 L 7.4 L Urine Color MAGGIE Urine Clarity CLOUDY A Urine pH 5.0 Urine Specific 1.017 [place] Urine Ketones TRACE A Urine Nitrite NEGATIVE Urine Bilirubin NEGATIVE Urine NEGATIVE Urobilinogen Urine Leukocyte 3+ H Esterase Urine Microscopic 16 H RBC Urine Microscopic > 182 H WBC Urine Bacteria FEW A Urine Yeast MODERATE A (Budding) Urine Hemoglobin 2+ H Urine Osmolality 331 Urine Random 90.59 Creatinine Urine Random 92 H Sodium Urine Glucose NEGATIVE Urine Total 184.0 H Protein Test 11/09/18 04:00 11/09/18 04:51 White Blood Count 13.2 #H Red Blood Count 2.84 L Hemoglobin 7.8 L Hematocrit 25.8 L Mean Corpuscular 90.8 Volume Mean Corpuscular 27.5 L Hemoglobin Mean Corpuscular 30.2 L Hemoglobin Concen t Red Cell 23.2 H Distribution Width Platelet Count 194 # Mean Platelet 10.4 Volume Immature 1.200 H Granulocytes % Neutrophils % 65.9 Lymphocytes % 25.6 Monocytes % 6.6 Eosinophils % 0.5 Basophils % 0.2 Nucleated Red 0.5 H Blood Cells % Immature 0.160 H Granulocytes # Neutrophils # 8.7 H Lymphocytes # 3.4 H Monocytes # 0.9 Eosinophils # 0.1 Basophils # 0.0 Nucleated Red 0.1 H Blood Cells # Sodium Level 146 H Potassium Level 3.4 L Chloride Level 125 H Carbon Dioxide 13 L Level Anion Gap 8 Blood Urea 11 Nitrogen Creatinine 2.82 H Est Glomerular Filtrat Rate mL/min Glucose Level 77 Calcium Level 7.4 L Total Bilirubin 0.3 Direct Bilirubin 0.00 Indirect 0.3 Bilirubin Aspartate Amino 22 Transf (AST/SGOT) Alanine 19 Aminotransferase (ALT/SGPT) Alkaline 137 H Phosphatase Total Protein 5.0 L Albumin 1.9 L Globulin 3.10 Albumin/Globulin 0.61 Ratio Vancomycin Level < 5.0 L Trough Lab Scanned BLOOD TRANSFUSIO Report N Medications Medication Current Medications Ondansetron HCl (Zofran Inj) 4 mg Q6H PRN IV NAUSEA AND/OR VOMITING; Start 11/07/18 at 20:00 Albuterol (Ventolin Hfa) 4 puff Q2H RESP THERAPY PRN INH SHORTNESS OF BREATH; Start 11/07/18 at 20:00 Ipratropium [place] (Atrovent Hfa) 4 puff Q2H RESP THERAPY PRN INH SHORTNESS OF BREATH; Start 11/07/18 at 20:00 Vancomycin HCl (Vanco Iv Per Pharmacy) VANCOMYCIN PER PHARMACY PER PROTOCOL XX ; Start 11/07/18 at 22:30 Piperacillin Sod/ Tazobactam Sod 50 ml @ 200 mls/hr Q8 IVPB Last administered on 11/09/18at 05:50; Admin Dose 200 MLS/HR; Start 11/08/18 at 22:30 Acetaminophen (Tylenol Liquid) 650 mg Q4H PRN GTB MILD PAIN LEVEL 1-3; Start 11/08/18 at 03:30 Ascorbic Acid (Vitamin C) 500 mg DAILY GTB Last administered on 11/09/18at 0 9:08; Admin Dose 500 MG; Start 11/08/18 at 09:00 Epoetin Adrian-epbx (Retacrit (Esrd)) 8,000 unit MONWEDFRI@1700 SC Last administered on 11/08/18at 16:48; Admin Dose 8,000 UNIT; Start 11/08/18 at 17:00 Al Hydrox/Mg Hydrox/Simethicone (Mag-Al Plus) 30 ml Q4H PRN GTB GASTROINTESTINAL UPSET; Start 11/08/18 at 03:30 Magnesium Hydroxide (Milk Of Mag) 30 ml DAILY GTB Last administered on 11/08/18at 09:59; Admin Dose 30 ML; Start 11/08/18 at 09:00 Sodium Biphosphate/ Sodium Phosphate (Fleet Enema) 133 ml DAILY PRN [place] CONSTIPATION; Start 11/08/18 at 03:30 Ondansetron HCl (Zofran Tab) 4 mg Q6H PRN GTB NAUSEA AND/OR VOMITING; Start 11/08/18 at 03:30 Eye Lubricant (Artificial Tears Oph) 1 drop TID BOTH EYES Last administered on 11/09/18at 09:09; Admin Dose 1 DROP; Start 11/08/18 at 09:00 Tramadol HCl (Ultram) 50 mg BID PRN GTB PAIN; Start 11/08/18 at 03:30 Zinc Sulfate (Zinc Sulfate) 220 mg DAILY GTB Last administered on 11/09/18 09:08; Admin Dose 220 MG; Start 11/08/18 at 09:00 Amiodarone HCl (Cordarone) 200 mg DAILY GTB Last administered on 11/08/18 09:59; Admin Dose 200 MG; Start 11/08/18 at 09:00 Lactobacillus Acidophilus/ Rhamnosus (Culturelle) 1 cap BID GTB Last administered on 11/09/18 09:08; Admin Dose 1 CAP; Start 11/08/18 at 09:00 Lansoprazole (Prevacid) 30 mg DAILY@06 GTB Last administered on 11/09/18 05:50; Admin Dose 30 MG; Start 11/08/18 at 06:00 Sodium Chloride 1,000 ml @ 100 mls/hr Q10H IV Last administered on 11/09/18 05:57; Admin Dose 100 MLS/HR; Start 11/08/18 at 09:30 Norepinephrine 250 ml @ 1.875 mls/ hr TITRATE IV Last administered on 11/09/18 01:21; Admin Dose 15 MLS/HR; Start 11/08/18 at 11:00 Levothyroxine Sodium (Synthroid) 125 mcg BEFORE BREAKFAST GTB Last administered on 11/09/18 09:06; Admin Dose 125 MCG; Start 11/09/18 at 07:00 Heparin Sodium (Porcine) (Heparin (5000 Units/1ml)) 5,000 unit BID SC Last administered on 11/09/18 09:12; Admin Dose 5,000 UNIT; Start 11/08/18 at 21:00 Vancomycin HCl 100 ml @ 100 mls/hr Q24H IVPB Last administered on 11/09/18 06:37; Admin Dose 100 MLS/HR; Start 11/09/18 at 07:00 Fluconazole 100 ml @ 100 mls/hr Q24H IVPB Last administered on 11/09/18 09:38; Admin Dose 100 MLS/HR; Start 11/09/18 at 07:00 Multivitamins (Multivitamin) 30 ml DAILY GTB Last administered on 11/09/18 10:59; Admin Dose 30 ML; Start 11/09/18 at 10:00 FITO ALEXANDER NP Nov 09, 2018 11:18
--- NOTE | 2018-11-09 12:07 | CONS ---
Assessment/Plan Assessment/Plan Assessment/Plan (Recall) 83 M c/ prior stroke, brain tumor NOS s/p partial resection, and other comorbidities, who is admitted for management of encephalopathy and hypotension. The clinical picture suggests an acute toxic-metabolic on chronic encephalopathy due to acute systemic illness. Neurology is consulted for recommendations re: timing of anticoagulation.. Head CT is without acute pathology.. EEG is without epileptiform activity. UA+ P: OK to initiate anticoagulation as medically necessary [place] as able Limit sedating medications where possible UTI and other medical management and supportive care per primary Will follow clinically Consultation Date/Type/Reason Admit Date/Time Nov 07, 2018 at 18:54 Type of Consult Neurology Reason for Consultation ams Requesting Provider: KYLE SEVERINO Date/Time of Note DATE: 11/09/18 TIME: 12:05 24 HR Interval Summary Free Text/Dictation Continues acute care Exam/Review of Systems Exam Vitals Vital Signs Date Temp Pulse Resp B/P (MAP) Pulse Ox O2 O2 Flow FiO2 Time Delivery Rate 11/09/18 56 08:00 11/09/18 20 94/51 (65) 100 Mechanical 06:15 Ventilator 11/09/18 30 05:00 11/09/18 97.0 04:00 Intake and Output 11/08/18 11/08/18 11/09/18 1515:00 23:00 07:00 IntakeIntake Total 1241.00 ml 1820.625 ml 1665 ml OutputOutput Total 55 ml 55 ml 25 ml BalanceBalance 1186.00 ml 1765.625 ml 1640 ml Results Result Diagram: 11/09/18 0400 11/09/18 0400 Results 24hrs Laboratory Tests Test 11/08/18 14:59 11/08/18 16:15 11/08/18 17:18 11/08/18 21:04 Sodium Level 146 H 145 H 144 Potassium Level 3.5 3.7 3.6 Chloride Level 124 H 124 H 124 H Carbon Dioxide 13 L 13 L 12 L Level Anion Gap 9 8 8 Blood Urea 11 11 11 Nitrogen Creatinine 2.86 H 2.87 H 2.82 H Est Glomerular Filtrat Rate mL/min Glucose Level 135 116 104 Calcium Level 7.4 L 7.5 L 7.4 L Urine Color MAGGIE Urine Clarity CLOUDY A Urine pH 5.0 Urine Specific 1.017 Bolt Urine Ketones TRACE A Urine Nitrite NEGATIVE Urine Bilirubin NEGATIVE Urine NEGATIVE Urobilinogen Urine Leukocyte 3+ H Esterase Urine Microscopic 16 H RBC Urine Microscopic > 182 H WBC Urine Bacteria FEW A Urine Yeast MODERATE A (Budding) Urine Hemoglobin 2+ H Urine Osmolality 331 Urine Random 90.59 Creatinine Urine Random 92 H Sodium Urine Glucose NEGATIVE Urine Total 184.0 H Protein Test 11/09/18 04:00 11/09/18 04:51 White Blood Count 13.2 #H Red Blood Count 2.84 L Hemoglobin 7.8 L Hematocrit 25.8 L Mean Corpuscular 90.8 Volume Mean Corpuscular 27.5 L Hemoglobin Mean Corpuscular 30.2 L Hemoglobin Concen t Red Cell 23.2 H Distribution Width Platelet Count 194 # Mean Platelet 10.4 Volume Immature 1.200 H Granulocytes % Neutrophils % 65.9 Lymphocytes % 25.6 Monocytes % 6.6 Eosinophils % 0.5 Basophils % 0.2 Nucleated Red 0.5 H Blood Cells % Immature 0.160 H Granulocytes # Neutrophils # 8.7 H Lymphocytes # 3.4 H Monocytes # 0.9 Eosinophils # 0.1 Basophils # 0.0 Nucleated Red 0.1 H Blood Cells # Sodium Level 146 H Potassium Level 3.4 L Chloride Level 125 H Carbon Dioxide 13 L Level Anion Gap 8 Blood Urea 11 Nitrogen Creatinine 2.82 H Est Glomerular Filtrat Rate mL/min Glucose Level 77 Calcium Level 7.4 L Total Bilirubin 0.3 Direct Bilirubin 0.00 Indirect 0.3 Bilirubin Aspartate Amino 22 Transf (AST/SGOT) Alanine 19 Aminotransferase (ALT/SGPT) Alkaline 137 H Phosphatase Total Protein 5.0 L Albumin 1.9 L Globulin 3.10 Albumin/Globulin 0.61 Ratio Vancomycin Level < 5.0 L Trough Lab Scanned BLOOD TRANSFUSIO Report N Medications Medication Current Medications Ondansetron HCl (Zofran Inj) 4 mg Q6H PRN IV NAUSEA AND/OR VOMITING; Start 11/07/18 at 20:00 Albuterol (Ventolin Hfa) 4 puff Q2H RESP THERAPY PRN INH SHORTNESS OF BREATH; Start 11/07/18 at 20:00 Ipratropium [place] (Atrovent Hfa) 4 puff Q2H RESP THERAPY PRN INH SHORTNESS OF BREATH; Start 11/07/18 at 20:00 Vancomycin HCl (Vanco Iv Per Pharmacy) VANCOMYCIN PER PHARMACY PER PROTOCOL XX ; Start 11/07/18 at 22:30 Acetaminophen (Tylenol Liquid) 650 mg Q4H PRN GTB MILD PAIN LEVEL 1-3; Start 11/08/18 at 03:30 Ascorbic Acid (Vitamin C) 500 mg DAILY GTB Last administered on 11/09/18 09:08; Admin Dose 500 MG; Start 11/08/18 at 09:00 Epoetin Adrian-epbx (Retacrit (Esrd)) 8,000 unit MONWEDFRI@1700 SC Last administered on 11/08/18 16:48; Admin Dose 8,000 UNIT; Start 11/08/18 at 17:00 Al Hydrox/Mg Hydrox/Simethicone (Mag-Al Plus) 30 ml Q4H PRN GTB GASTROINTESTINAL UPSET; Start 11/08/18 at 03:30 Magnesium Hydroxide (Milk Of Mag) 30 ml DAILY GTB Last administered on 11/08/18 09:59; Admin Dose 30 ML; Start 11/08/18 at 09:00 Sodium Biphosphate/ Sodium Phosphate (Fleet Enema) 133 ml DAILY PRN [place] CONSTIPATION; Start 11/08/18 at 03:30 Ondansetron HCl (Zofran Tab) 4 mg Q6H PRN GTB NAUSEA AND/OR VOMITING; Start 11/08/18 at 03:30 Eye Lubricant (Artificial Tears Oph) 1 drop TID BOTH EYES Last administered on 11/09/18 09:09; Admin Dose 1 DROP; Start 11/08/18 at 09:00 Tramadol HCl (Ultram) 50 mg BID PRN GTB PAIN; Start 11/08/18 at 03:30 Zinc Sulfate (Zinc Sulfate) 220 mg DAILY GTB Last administered on 11/09/18 09:08; Admin Dose 220 MG; Start 11/08/18 at 09:00 Amiodarone HCl (Cordarone) 200 mg DAILY GTB Last administered on 11/08/18 09 :59; Admin Dose 200 MG; Start 11/08/18 at 09:00 Lactobacillus Acidophilus/ Rhamnosus (Culturelle) 1 cap BID GTB Last administered on 11/09/18 09:08; Admin Dose 1 CAP; Start 11/08/18 at 09:00 Lansoprazole (Prevacid) 30 mg DAILY@06 GTB Last administered on 11/09/18 05:50; Admin Dose 30 MG; Start 11/08/18 at 06:00 Sodium Chloride 1,000 ml @ 100 mls/hr Q10H IV Last administered on 11/09/18at 05:57; Admin Dose 100 MLS/HR; Start 11/08/18 at 09:30 Norepinephrine 250 ml @ 1.875 mls/ hr TITRATE IV Last administered on 11/09/18at 01:21; Admin Dose 15 MLS/HR; Start 11/08/18 at 11:00 Levothyroxine Sodium (Synthroid) 125 mcg BEFORE BREAKFAST GTB Last administered on 11/09/18at 09:06; Admin Dose 125 MCG; Start 11/09/18 at 07:00 Heparin Sodium (Porcine) (Heparin (5000 Units/1ml)) 5,000 unit BID SC Last administered on 11/09/18at 09:12; Admin Dose 5,000 UNIT; Start 11/08/18 at 21:00 Vancomycin HCl 100 ml @ 100 mls/hr Q24H IVPB Last administered on 11/09/18at 06:37; Admin Dose 100 MLS/HR; Start 11/09/18 at 07:00 Multivitamins (Multivitamin) 30 ml DAILY GTB Last administered on 11/09/18at 10: 59; Admin Dose 30 ML; Start 11/09/18 at 10:00 Caspofungin 50 mg/ Sodium Chloride 250 ml @ 250 mls/hr Q24H IVPB ; Start 11/10/18 at 13:00 Caspofungin 70 mg/ Sodium Chloride 250 ml @ 250 mls/hr ONCE ONCE IVPB ; Start 11/09/18 at 13:00; Stop 11/09/18 at 13:59 Meropenem/Sodium Chloride 50 ml @ 100 mls/hr Q12 IVPB ; Start 11/09/18 at 21:00 STACIA ENRIQEU Nov 09, 2018 12:07
[2018-11-09] MEDS ORDERED: CASPOFUNGIN 70 MG in SOD CHLORIDE 0.9% 250 ML IVPB ONE (13:00)
--- NOTE | 2018-11-09 14:28 | CONS ---
DATE OF ADMISSION: 11/07/2018 DATE OF CONSULTATION: 11/08/2018 TYPE OF CONSULTATION: Infectious disease. REASON FOR CONSULTATION: Antibiotic management. HISTORY OF PRESENT ILLNESS: Justin Harrison is an 83-year-old male who is brought in from [facility] for hypotension and loss of consciousness. He is a chronic trach to vent yara ent. He has a gastrostomy tube. PAST PROBLEMS INCLUDE: Brain cancer, hypertension, frequent falls, a right clavicular fracture. He has dysphagia, status post gastrostomy and respiratory failure. PAST MEDICAL HISTORY: As outlined. FAMILY HISTORY: Noncontributory. SOCIAL HISTORY: He does not smoke, drink or abuse drugs. ALLERGIES: NONE TO PENICILLIN, SULFA OR FOODS. MEDICATIONS: Per chart. REVIEW OF SYSTEMS: Noncontributory. HOSPITAL COURSE: White count is 13.8, H and H 7.6 and 25.8, platelet count 253,000. BUN and creatin ine 13/3.11, glucose of 85, total neutrophils 72%. The patient had a central line placed in the left subclavian vein. No evidence of pneumothorax. PHYSICAL EXAMINATION: VITAL SIGNS: He was hypotensive. He is afebrile, but hypothermic with a temperature of 91.5. Blood cultures are negative. He had mixed gram-negative organisms in his trachea. Chest x-ray presently shows minimally increased interstitial edema, slightly increased infrahilar infiltrate, atelectasis, minimal pleural effusions. Patient currently on vancomycin, Zosyn and Fluconazole. He is on Levophe d drip. No fevers overnight. HEENT: Within normal limits. NECK: Supple. LYMPH NODES: None palpable. Tracheostomy is clean, dry and intact. CHEST: Decreased breath sounds at the bases. HEART: Without murmur or gallop. ABDOMEN: Soft, nontender. EXTREMITIES: Without cyanosis, clubbing, or edema. RECTAL AND GENITAL: Deferred. SKIN: Generalized rash. NEUROLOGIC: No focal neurological abnormality. Of note, is the fact that he does have some degree of renal insufficiency or failure. Urine grew out 3+ leukocyte esterase, greater than 182 white cells per high-power field, so the source of sepsis is his urinary tract. The patient was seen by Dr. Allen in neurological evaluation. Abnormal EEG due to severe diffuse slowing and triphasic waves. The following indicates severe diffuse cortical dysfu nction of nonspecific etiology. For the time being, we will continue him on a regimen of vancomycin, meropenem and caspofungin since he had moderate yeast as well as bacteria in the urine. I will dictate my findings to the hospitalists and to the aforementioned consultants including Dr. Ra cobb, Tiffany and . Dictated By: WES FLEMING MD, JD/NTS Conf#: [id number] DID#: [id number] CC: CELINA HANCOCK MD;*EndCC*
[2018-11-09] MEDS ORDERED: PENDING SANTYL ORDER FOR WOUND CARE XX PRN (16:00)
[2018-11-09] MEDS: MEROPENEM 500MG/50 ML (PMX) 50 ML IVPB SCH (21:22)
[2018-11-09] MEDS: BALSAM PERU/CASTOR OIL 60 GM TUBE TOP SCH (22:34)
[2018-11-09] MEDS: DAKINS 0.0125%(1/40) 473 ML SOLUTION TP SCH (22:34)
[2018-11-10] VITALS (97 sets, daily range): BP systolic 81–133; BP diastolic 41–85; PULSE 56–79; RESP 15–28
[2018-11-10] MEDS: LANSOPRAZOLE 30 MG CAP GTB SCH (05:37)
[2018-11-10] MEDS: VANCOMYCIN 500 MG (PMX) 100 ML IVPB SCH (06:20)
[2018-11-10] MEDS: SOD CHLORIDE 0.45% 1,000 ML IV SCH ×2 (06:29→18:57)
[2018-11-10] MEDS ORDERED: DEXTROSE 50% 50 ML SYRINGE IV ONE (06:30)
--- NOTE | 2018-11-10 08:11 | PN ---
DATE: 11/10/2018 SUBJECTIVE: The patient remains critically ill. The patient is being weaned off pressor support. U rinary output is improved. No other acute events noted. OBJECTIVE: VITAL SIGNS: Blood pressure is 107/52, respiration 21, pulse 58, temperature 96.8. HEENT: Head is normocephalic. NECK: Supple. HEART: Regular rate. LUNGS: Show diminished breath sounds at the base. ABDOMEN: Soft, nontender to palpation. No rebound or guarding. EXTREMITIES: Negative for clubbing, cyanosis. Positive edema upper extremity and lower extremity. DERMATOLOGIC: No rashes. MUSCULOSKELETAL: No joint effusions. NEUROLOGIC: No change in exam. MEDICATIONS: The patient's medications have been reviewed. LABORATORY DATA: Has been reviewed. The patient's ABG was reviewed. IMAGING STUDIES: Reviewed. ASSESSMENT AND PLAN: 1. Nonoliguric acute kidney injury with previous baseline creatinine of 1.0 mg/dL. Etiology of acut e kidney injury secondary to acute tubular necrosis due to sepsis and shock. The patient's renal fun ction has been stable over the past 2 to 3 days. At this point, continue current treatment plan. Co ntinue pressor support, and maintain MAP of 65. Continue antibiotics. Continue IV fluids. No immed iate need for renal replacement therapy. 2. Hypernatremia, improved. Continue free water flushes. Will decrease rate of IV hydration. Keely tor closely. 3. Hypokalemia. Continue to monitor and replete as needed. 4. Mixed acid base disorder. The patient has metabolic acidosis, respiratory alkalosis. ABG was re viewed. No need for bicarbonate therapy. 5. Anemia. Monitor hemoglobin and hematocrit levels. 6. Mineral bone disorder. Monitor calcium and phosphorus levels. 7. Septic shock secondary to urinary tract infection. Continue medical management. Continue antibi otics, pressors. Will deescalate IV fluids. 8. History of Clostridium difficile. 9. Volume overload. Etiology is secondary to acute kidney injury, capillary leak. Would defer diur etic therapy in the setting of shock. Once hemodynamically more stable, would introduce diuretic the rapy. 10. Dysphagia, status post PEG. Continue tube feeding. 11. Chronic encephalopathy. 12. History of brain tumor. 13. Renal cyst. Continue to monitor. The patient will likely need CT scan once clinically stable. 14. Gastrointestinal and deep venous thrombosis prophylaxis. Please note I spent over 30 minutes of critical care time with this patient. Dictated By: ZAYDA LUCIANO DO NR/BETZAIDA Conf#: [id number] DID#: [id number] CC: CELINA HANCOCK MD;*EndCC*
[2018-11-10] MEDS: LACTOBACILLUS RHAMNOSUS CAP GTB SCH ×2 (08:23→20:58)
[2018-11-10] MEDS: ZINC SULFATE 220 MG CAP GTB SCH (08:23)
[2018-11-10] MEDS: MEROPENEM 500MG/50 ML (PMX) 50 ML IVPB SCH ×2 (08:23→20:58)
[2018-11-10] MEDS: MULTIVITAMINS 30 ML CUP GTB SCH (08:23)
[2018-11-10] MEDS: ARTIFICIAL TEARS 15 ML OPH BOTH EYES SCH ×3 (08:24→20:58)
[2018-11-10] MEDS: MAGNESIUM HYDROXIDE 30ML CUP GTB SCH (08:24)
[2018-11-10] MEDS: ASCORBIC ACID 500 MG TAB GTB SCH (08:24)
[2018-11-10] MEDS: AMIODARONE 200 MG TAB GTB SCH (08:24)
[2018-11-10] MEDS: DAKINS 0.0125%(1/40) 473 ML SOLUTION TP SCH (08:24)
[2018-11-10] MEDS: LEVOTHYROXINE 125 MCG TAB GTB SCH (08:24)
[2018-11-10] MEDS: BALSAM PERU/CASTOR OIL 60 GM TUBE TOP SCH (08:25)
--- NOTE | 2018-11-10 08:47 | CONS ---
Assessment/Plan Assessment/Plan Assessment/Plan (Daily) Ventilator setting; assist control of 12, tidal volume 450, PEEP of 0, 30% FiO2. Patient is currently on Levophed at 3 mics per minute. Chest x-ray was reviewed from today which is showing patchy bilateral infiltrative changes. Assessment and recommendations; 1. Patient with history of chronic encephalopathy and VDR F admitted for sepsis due to pneumonia. Currently on appropriate antimicrobial regimen. Leukocytosis is improving. 2. Hypotension with interval improvement. 3. Prior history of craniotomy and brain tumor. Extent of treatment is not available. 4. History of chronic atrial fibrillation. 5. History of DVT. 6. History of hypothyroidism. 7. Chronic renal insufficiency. 8. Anemia. Continue current supportive care. Wean down Levophed as tolerated. Overall prognosis is very poor. 35 minutes of critical care time was spent evaluating patient. Consultation Date/Type/Reason Admit Date/Time Nov 07, 2018 at 18:54 Initial Consult Date 11/08/18 Type of Consult Pulmonary/critical care Patient is an 83-year-old male with a history of chronic respiratory failure which is ventilator dependent admitted for sepsis. Patient has been adequately fluid resuscitated and started on appropriate antimicrobial regimen. Patient still remains hypotensive requiring Levophed. Patient does have history of a dvanced dementia and was unable to give any history by himself whatsoever. Patient however did not appear to be in any distress. Past medical history; 1. History of dementia with a history of brain tumor. 2. VDRF. 3. History of tracheostomy and G-tube placement. 4. History of DVT. 5. History of paroxysmal atrial fibrillation. 6. History of hypothyroidism. Medications; reviewed. Allergies; none. Social history, family history, occupational histories are not available. Review of system; unable to be obtained. General exam; elderly male, on ventilator via tracheostomy, awake but noncomm unicative. Currently in no distress. Requesting Provider: KYLE SEVERINO Date/Time of Note DATE: 11/10/18 TIME: 08:44 24 HR Interval Summary Free Text/Dictation Patient's condition is critical. Still on Levophed for hypotension. General exam; elderly male, on ventilator via tracheostomy, unresponsive, currently in no distress. Exam/Review of Systems Exam Vitals Vital Signs Date Temp Pulse Resp B/P (MAP) Pulse Ox O2 O2 Flow FiO2 Time Delivery Rate 11/10/18 56 21 100 30 05:23 11/10/18 107/52 Mechanical 04:45 (70) Ventilator 11/10/18 96.8 04:00 Intake and Output 11/09/18 11/09/18 11/10/18 1515:00 23:00 07:00 IntakeIntake Total 1335 ml 886.295 ml 1150.625 ml OutputOutput Total 120 ml 145 ml 540 ml BalanceBalance 1215 ml 741.295 ml 610.625 ml Exam H ENT exam; supple neck, no JVD. No lymphadenopathy. Midline trachea. No thyromegaly. Tracheostomy in place. Insertion site is clean. Patient has few remaining teeth and upper jaw with multiple carious teeth and lower jaw. Pupils are small bilaterally. Chest exam; diminished but clear breath sounds. S1-S2 audible, no murmurs. Irregular rhythm. Abdomen exam; soft, no organomegaly. Nondistended. G-tube in place. Bowel sounds are audible. Extremity exam; trace edema. BIOMEDICAL REPAIR TECHNICIAN exam; patient is unresponsive. Results Result Diagram: 11/10/18 0400 11/10/18 0400 Results 24hrs Laboratory Tests Test 11/10/18 04:00 11/10/18 05:31 11/10/18 06:06 11/10/18 06:37 White Blood Count 12.3 H Red Blood Count 2.90 L Hemoglobin 7.8 L Hematocrit 26.0 L Mean Corpuscular 89.7 Volume Mean Corpuscular 26.9 L Hemoglobin Mean Corpuscular 30.0 L Hemoglobin Concen t Red Cell 23.9 H Distribution Width Platelet Count 145 # Mean Platelet 10.5 H Volume Immature 1.200 H Granulocytes % Neutrophils % 69.6 Lymphocytes % 21.9 Monocytes % 6.3 Eosinophils % 0.7 Basophils % 0.3 Nucleated Red 0.4 H Blood Cells % Immature 0.150 H Granulocytes # Neutrophils # 8.5 H Lymphocytes # 2.7 Monocytes # 0.8 Eosinophils # 0.1 Basophils # 0.0 Nucleated Red 0.1 H Blood Cells # Sodium Level 142 Potassium Level 3.8 Chloride Level 122 H Carbon Dioxide 12 L Level Anion Gap 8 Blood Urea 10 Nitrogen Creatinine 2.87 H Glucose Level 49 #*L Calcium Level 7.3 L Phosphorus Level 3.0 Albumin 1.7 L Blood Gas Blood arterial Specimen Source Arterial Blood 11/10/2018 5:45:5 Date Drawn 4 AM Arterial Blood pH 7.359 (Temp corrected) Arterial Blood 20.0 L pCO2 (Temp correct) Arterial Blood 130.6 H pO2 (Temp corrected) Arterial Blood 11.0 L HCO3 Arterial Blood -12.8 L Base Excess Arterial Blood 98.2 Oxygen Saturation Jeff Test ACCEPTAB Arterial Blood Right Radial Gas Puncture Site Arterial 0.3 Blood Carboxyhemo globin Arterial Blood 0.4 Methemoglobin Blood Gas A-a O2 59.8 H Differential Oxyhemoglobin 97.5 Percent Blood Gas 37.0 Temperature Blood Gas 12.0 Respiration Rate Blood Gas Actual 22 Respiration Rate Blood Gas VENT - AC Modality FiO2 30.0 Blood Gas Tidal 450.0 Volume Blood Gas Low 0 PEEP Setting Blood Gas Dodie DE LA CRUZ RN Critical Value Read Back Blood Gas Notified Whom Blood Gas 11/10/2018 5:52:1 Notified Time 0 AM Bedside Glucose 61 L 101 Test 11/10/18 07:12 Bedside Glucose 86 Medications Medication Current Medications Ondansetron HCl (Zofran Inj) 4 mg Q6H PRN IV NAUSEA AND/OR VOMITING; Start 11/07/18 at 20:00 Albuterol (Ventolin Hfa) 4 puff Q2H RESP THERAPY PRN INH SHORTNESS OF BREATH; Start 11/07/18 at 20:00 Ipratropium [place] (Atrovent Hfa) 4 puff Q2H RESP THERAPY PRN INH SHORTNESS OF BREATH; Start 11/07/18 at 20:00 Vancomycin HCl (Vanco Iv Per Pharmacy) VANCOMYCIN PER PHARMACY PER PROTOCOL XX ; Start 11/07/18 at 22:30 Acetaminophen (Tylenol Liquid) 650 mg Q4H PRN GTB MILD PAIN LEVEL 1-3; Start 11/08/18 at 03:30 Ascorbic Acid (Vitamin C) 500 mg DAILY GTB Last administered on 11/09/18at 09:08; Admin Dose 500 MG; Start 11/08/18 at 09:00 Epoetin Adrian-epbx (Retacrit (Esrd)) 8,000 unit MONWEDFRI@1700 SC Last administered on 11/08/18at 16:48; Admin Dose 8,000 UNIT; Start 11/08/18 at 17:00 Al Hydrox/Mg Hydrox/Simethicone (Mag-Al Plus) 30 ml Q4H PRN GTB GASTROINTESTINAL UPSET; Start 11/08/18 at 03:30 Magnesium Hydroxide (Milk Of Mag) 30 ml DAILY GTB Last administered on 11/08/18 09:59; Admin Dose 30 ML; Start 11/08/18 at 09:00 Sodium Biphosphate/ Sodium Phosphate (Fleet Enema) 133 ml DAILY PRN [place] CONSTIPATION; Start 11/08/18 at 03:30 Ondansetron HCl (Zofran Tab) 4 mg Q6H PRN GTB NAUSEA AND/OR VOMITING; Start 11/08/18 at 03:30 Eye Lubricant (Artificial Tears Oph) 1 drop TID BOTH EYES Last administered on 11/09/18 21:23; Admin Dose 1 DROP; Start 11/08/18 at 09:00 Tramadol HCl (Ultram) 50 mg BID PRN GTB PAIN; Start 11/08/18 at 03:30 Zinc Sulfate (Zinc Sulfate) 220 mg DAILY GTB Last administered on 11/09/18 09:08; Admin Dose 220 MG; Start 11/08/18 at 09:00 Amiodarone HCl (Cordarone) 200 mg DAILY GTB Last administered on 11/08/18 09:59; Admin Dose 200 MG; Start 11/08/18 at 09:00 Lactobacillus Acidophilus/ Rhamnosus (Culturelle) 1 cap BID GTB Last administered on 11/09/18 21:22; Admin Dose 1 CAP; Start 11/08/18 at 09:00 Lansoprazole (Prevacid) 30 mg DAILY@06 GTB Last administered on 11/10/18 05:37; Admin Dose 30 MG; Start 11/08/18 at 06:00 Sodium Chloride 1,000 ml @ 75 mls/hr [id number] IV Last administered on 11/10/18 06:29; Admin Dose 100 MLS/HR; Start 11/08/18 at 09:30 Norepinephrine 250 ml @ 1.875 mls/ hr TITRATE IV Last administered on 11/09/18 18:47; Admin Dose 11.25 MLS/HR; Start 11/08/18 at 11:00 Levothyroxine Sodium (Synthroid) 125 mcg BEFORE BREAKFAST GTB Last administered on 11/09/18 09:06; Admin Dose 125 MCG; Start 11/09/18 at 07:00 Heparin Sodium (Porcine) (Heparin (5000 Units/1ml)) 5,000 unit BID SC Last administered on 11/09/18 21:26; Admin Dose 5,000 UNIT; Start 11/08/18 at 21:00 Vancomycin HCl 100 ml @ 100 mls/hr Q24H IVPB Last administered on 11/10/18 06:20; Admin Dose 100 MLS/HR; Start 11/09/18 at 07:00 Multivitamins (Multivitamin) 30 ml DAILY GTB Last administered on 11/09/18at 10:59; Admin Dose 30 ML; Start 11/09/18 at 10:00 Caspofungin 50 mg/ Sodium Chloride 250 ml @ 250 mls/hr Q24H IVPB ; Start 11/10/18 at 13:00 Meropenem/Sodium Chloride 50 ml @ 100 mls/hr Q12 IVPB Last administered on 11/09/18 21:22; Admin Dose 100 MLS/HR; Start 11/09/18 at 21:00 Miscellaneous Information (Pending [facility] Order For Wound Care) This patient yen... PRN PRN XX WOUND CARE; Start 11/09/18 at 16:00 Sodium Hypochlorite (Dakins Diluted (/40)) 1 applic DAILY TP Last administered on 11/09/18at 22:34; Admin Dose 1 APPLIC; Start 11/09/18 at 21:00 Miscellaneous Information (*Rx Drug Level Order Reminder*) VANCOMYCIN TR 11/11 AT 0,600 0600 ONCE XX ; Start 11/11/18 at 06:00; Stop 11/11/18 at 06:01 SADI BERGER Nov 10, 2018 08:47
[2018-11-10] MEDS: HEPARIN 5,000 UNIT/1 ML VIAL SC SCH ×2 (08:51→21:00)
[2018-11-10] MEDS ORDERED: PENDING SANTYL ORDER FOR WOUND CARE XX SCH (09:00)
--- NOTE | 2018-11-10 11:03 | PN ---
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 The patient is also said to have had a CVA in the past. Is currently managed as follows: 1. Severe sepsis with shock thought to be secondary to bilateral pneumonia and UTI -Urine cultures growing Wandy -Endotracheal cultures growing 2 different gram-negative rods 2. Septic shock -still on pressors 3. Acute renal insufficiency with associated metabolic acidosis -Improved, patient seems to be at baseline renal function at this time -Patient also with chronic kidney disease 4. Paroxysmal atrial fibrillation currently rate controlled -Patient having episodes of arrhythmia and mild bradycardia -Patient on amiodarone for tachycardia, cardiology following, reduce or DC amiodarone? 5. Recent C. difficile colitis as well as DVT, September 2018 -Patient is not on aggressive DVT treatment due to recent craniotomy, but has been cleared for DVT prophylaxis by neurology -We will have family contact surgeon who did the original surgery to see if we can treat DVT at this time 6. Chronic ventilator dependent respiratory failure status post trach -Continue ventilator management 7. Hx of bran tumor s/p craniotomy about 3 months ago and prev CVA with chronic encephalopathy -family has noted minimal improvements in the last 3months, patient is moving LUE a bit and opens eys spontaneously -Family has been updated that patient is likely never going to have significant recovery 8. Chronic neurogenic dysphagia on tube feedings 9. Chronic cardiomyopathy with last known EF of 35% 10 Poorly controlled hypothyroidism -continue Synthroid. 11. Chronic hypochromic anemia -Transfused 1 unit of packed red cells so far this admission Plan: -Continue ICU monitoring and management -Continue antibiotics per ID -Wean off pressor support as tolerated, will also add gentle albumin transfusion -Continue IV fluid hydration and free water flushes per nephrology -Continue serial lab monitoring and close electrolyte management -Further interventions per clinical course Overall prognosis poor, but short and long-term, strongly recommend palliative care however it looks like this has been discussed with family multiple times and they are not in agreement, further interventions will depend on clinical course. CRITICAL CARE TIME: >35 mins of which more than half was spent at the bedside and during counselling Result Diagram: 11/10/18 0400 11/10/18 0400 Results 24hrs Laboratory Tests Test 11/10/18 04:00 11/10/18 05:31 11/10/18 06:06 11/10/18 06:37 White Blood Count 12.3 H Red Blood Count 2.90 L Hemoglobin 7.8 L Hematocrit 26.0 L Mean Corpuscular 89.7 Volume Mean Corpuscular 26.9 L Hemoglobin Mean Corpuscular 30.0 L Hemoglobin Concen t Red Cell 23.9 H Distribution Width Platelet Count 145 # Mean Platelet 10.5 H Volume Immature 1.200 H Granulocytes % Neutrophils % 69.6 Lymphocytes % 21.9 Monocytes % 6.3 Eosinophils % 0.7 Basophils % 0.3 Nucleated Red 0.4 H Blood Cells % Immature 0.150 H Granulocytes # Neutrophils # 8.5 H Lymphocytes # 2.7 Monocytes # 0.8 Eosinophils # 0.1 Basophils # 0.0 Nucleated Red 0.1 H Blood Cells # Sodium Level 142 Potassium Level 3.8 Chloride Level 122 H Carbon Dioxide 12 L Level Anion Gap 8 Blood Urea 10 Nitrogen Creatinine 2.87 H Glucose Level 49 #*L Calcium Level 7.3 L Phosphorus Level 3.0 Albumin 1.7 L Blood Gas Blood arterial Specimen Source Arterial Blood 11/10/2018 5:45:5 Date Drawn 4 AM Arterial Blood pH 7.359 (Temp corrected) Arterial Blood 20.0 L pCO2 (Temp correct) Arterial Blood 130.6 H pO2 (Temp corrected) Arterial Blood 11.0 L HCO3 Arterial Blood -12.8 L Base Excess Arterial Blood 98.2 Oxygen Saturation Jeff Test ACCEPTAB Arterial Blood Right Radial Gas Puncture Site Arterial 0.3 Blood Carboxyhemo globin Arterial Blood 0.4 Methemoglobin Blood Gas A-a O2 59.8 H Differential Oxyhemoglobin 97.5 Percent Blood Gas 37.0 Temperature Blood Gas 12.0 Respiration Rate Blood Gas Actual 22 Respiration Rate Blood Gas VENT - AC Modality FiO2 30.0 Blood Gas Tidal 450.0 Volume Blood Gas Low 0 PEEP Setting Blood Gas C JONO COTTO Critical Value Read Back Blood Gas Notified Whom Blood Gas 11/10/2018 5:52:1 Notified Time 0 AM Bedside Glucose 61 L 101 Test 11/10/18 07:12 Bedside Glucose 86 Subjective 24 Hr Interval Summary Free Text/Dictation No real change, still on pressors, now with diarrhea Exam/Review of Systems Exam Vitals Vital Signs Date Temp Pulse Resp B/P (MAP) Pulse Ox O2 O2 Flow FiO2 Time Delivery Rate 11/10/18 62 21 105/45 100 Mechanical 10:00 (65) Ventilator 11/10/18 30 08:00 11/10/18 97.4 08:00 Intake and Output 11/09/18 11/09/18 11/10/18 1515:00 23:00 07:00 IntakeIntake Total 1335 ml 886.295 ml 1306.250 ml OutputOutput Total 120 ml 145 ml 540 ml BalanceBalance 1215 ml 741.295 ml 766.250 ml Exam Constitutional: non-verbal, other (cachetic , elderly, Patient unresponsive, not following commands or tracking), Obtunded Eyes occasionally open spontaneously, No oriented, Psych: other (unable to assess) Head: normocephalic, atraumatic Eyes: PERRL, No icteric ENMT: trach to vent No mucosa pink and moist (dry), mouth open Respiratory: diminished breath sounds, No labored breathing Cardiovascular: regular rate and rhythm, No murmurs/extra sounds Gastrointestinal: soft, non-tender, bowel sounds, other (PEG tube noted with no cellulitis or discharge) Genitourinary - male: nl external genitalia, lugo Extremities: R side: Chronically contracted on the R paresis minimal L foot withdrawal with stimulation Neurological: altered, eyes opening spontaneously but no tracking or following commands), No nl mental status, No nl speech, No nl strength Results Results 24hrs Laboratory Tests Test 11/10/18 04:00 11/10/18 05:31 11/10/18 06:06 11/10/18 06:37 White Blood Count 12.3 H Red Blood Count 2.90 L Hemoglobin 7.8 L Hematocrit 26.0 L Mean Corpuscular 89.7 Volume Mean Corpuscular 26.9 L Hemoglobin Mean Corpuscular 30.0 L Hemoglobin Concen t Red Cell 23.9 H Distribution Width Platelet Count 145 # Mean Platelet 10.5 H Volume Immature 1.200 H Granulocytes % Neutrophils % 69.6 Lymphocytes % 21.9 Monocytes % 6.3 Eosinophils % 0.7 Basophils % 0.3 Nucleated Red 0.4 H Blood Cells % Immature 0.150 H Granulocytes # Neutrophils # 8.5 H Lymphocytes # 2.7 Monocytes # 0.8 Eosinophils # 0.1 Basophils # 0.0 Nucleated Red 0.1 H Blood Cells # Sodium Level 142 Potassium Level 3.8 Chloride Level 122 H Carbon Dioxide 12 L Level Anion Gap 8 Blood Urea 10 Nitrogen Creatinine 2.87 H Glucose Level 49 #*L Calcium Level 7.3 L Phosphorus Level 3.0 Albumin 1.7 L Blood Gas Blood arterial Specimen Source Arterial Blood 11/10/2018 5:45:5 Date Drawn 4 AM Arterial Blood pH 7.359 (Temp corrected) Arterial Blood 20.0 L pCO2 (Temp correct) Arterial Blood 130.6 H pO2 (Temp corrected) Arterial Blood 11.0 L HCO3 Arterial Blood -12.8 L Base Excess Arterial Blood 98.2 Oxygen Saturation Jeff Test ACCEPTAB Arterial Blood Right Radial Gas Puncture Site Arterial 0.3 Blood Carboxyhemo globin Arterial Blood 0.4 Methemoglobin Blood Gas A-a O2 59.8 H Differential Oxyhemoglobin 97.5 Percent Blood Gas 37.0 Temperature Blood Gas 12.0 Respiration Rate Blood Gas Actual 22 Respiration Rate Blood Gas VENT - AC Modality FiO2 30.0 Blood Gas Tidal 450.0 Volume Blood Gas Low 0 PEEP Setting Blood Gas C JONO COTTO Critical Value Read Back Blood Gas Notified Whom Blood Gas 11/10/2018 5:52:1 Notified Time 0 AM Bedside Glucose 61 L 101 Test 11/10/18 07:12 Bedside Glucose 86 Medications Medication Current Medications Ondansetron HCl (Zofran Inj) 4 mg Q6H PRN IV NAUSEA AND/OR VOMITING; Start 11/07/18 at 20:00 Albuterol (Ventolin Hfa) 4 puff Q2H RESP THERAPY PRN INH SHORTNESS OF BREATH; Start 11/07/18 at 20:00 Ipratropium Sheridan (Atrovent Hfa) 4 puff Q2H RESP THERAPY PRN INH SHORTNESS OF BREATH; Start 11/07/18 at 20:00 Vancomycin HCl (Vanco Iv Per Pharmacy) VANCOMYCIN PER PHARMACY PER PROTOCOL XX ; Start 11/07/18 at 22:30 Acetaminophen (Tylenol Liquid) 650 mg Q4H PRN GTB MILD PAIN LEVEL 1-3; Start 11/08/18 at 03:30 Ascorbic Acid (Vitamin C) 500 mg DAILY GTB Last administered on 11/10/18 08:24; Admin Dose 500 MG; Start 11/08/18 at 09:00 Epoetin Adrian-epbx (Retacrit (Esrd)) 8,000 unit MONWEDFRI@1700 SC Last administered on 11/08/18 16:48; Admin Dose 8,000 UNIT; Start 11/08/18 at 17:00 Al Hydrox/Mg Hydrox/Simethicone (Mag-Al Plus) 30 ml Q4H PRN GTB GASTROINTESTINAL UPSET; Start 11/08/18 at 03:30 Magnesium Hydroxide (Milk Of Mag) 30 ml DAILY GTB Last administered on 11/08/18at 09:59; Admin Dose 30 ML; Start 11/08/18 at 09:00 Sodium Biphosphate/ Sodium Phosphate (Fleet Enema) 133 ml DAILY PRN HI CONSTIPATION; Start 11/08/18 at 03:30 Ondansetron HCl (Zofran Tab) 4 mg Q6H PRN GTB NAUSEA AND/OR VOMITING; Start 11/08/18 at 03:30 Eye Lubricant (Artificial Tears Oph) 1 drop TID BOTH EYES Last administered on 11/10/18 08:24; Admin Dose 1 DROP; Start 11/08/18 at 09:00 Tramadol HCl (Ultram) 50 mg BID PRN GTB PAIN; Start 11/08/18 at 03:30 Zinc Sulfate (Zinc Sulfate) 220 mg DAILY GTB Last administered on 11/10/18 08:23; Admin Dose 220 MG; Start 11/08/18 at 09:00 Amiodarone HCl (Cordarone) 200 mg DAILY GTB Last administered on 11/10/18 08:24; Admin Dose 200 MG; Start 11/08/18 at 09:00 Lactobacillus Acidophilus/ Rhamnosus (Culturelle) 1 cap BID GTB Last administered on 11/10/18 08:23; Admin Dose 1 CAP; Start 11/08/18 at 09:00 Lansoprazole (Prevacid) 30 mg DAILY@06 GTB Last administered on 11/10/18 05:37; Admin Dose 30 MG; Start 11/08/18 at 06:00 Sodium Chloride 1,000 ml @ 75 mls/hr [id number] IV Last administered on 11/10/18 06:29; Admin Dose 100 MLS/HR; Start 11/08/18 at 09:30 Norepinephrine 250 ml @ 1.875 mls/ hr TITRATE IV Last administered on 11/09/18 18:47; Admin Dose 11.25 MLS/HR; Start 11/08/18 at 11:00 Levothyroxine Sodium (Synthroid) 125 mcg BEFORE BREAKFAST GTB Last administered on 11/10/18 08:24; Admin Dose 125 MCG; Start 11/09/18 at 07:00 Heparin Sodium (Porcine) (Heparin (5000 Units/1ml)) 5,000 unit BID SC Last administered on 11/10/18 08:51; Admin Dose 5,000 UNIT; Start 11/08/18 at 21:00 Vancomycin HCl 100 ml @ 100 mls/hr Q24H IVPB Last administered on 11/10/18 06:20; Admin Dose 100 MLS/HR; Start 11/09/18 at 07:00 Multivitamins (Multivitamin) 30 ml DAILY GTB Last administered on 11/10/18 08:23; Admin Dose 30 ML; Start 11/09/18 at 10:00 Caspofungin 50 mg/ Sodium Chloride 250 ml @ 250 mls/hr Q24H IVPB ; Start 11/10/18 at 13:00 Meropenem/Sodium Chloride 50 ml @ 100 mls/hr Q12 IVPB Last administered on 11/10/18 08:23; Admin Dose 100 MLS/HR; Start 11/09/18 at 21:00 Sodium Hypochlorite (Dakins Diluted ()) 1 applic DAILY TP Last administered on 11/10/18 08:24; Admin Dose 1 APPLIC; Start 11/09/18 at 21:00 Miscellaneous Information (*Rx Drug Level Order Reminder*) VANCOMYCIN TR 11/11 AT 0,600 0600 ONCE XX ; Start 11/11/18 at 06:00; Stop 11/11/18 at 06:01 Collagenase (Santyl) This patient yen... DAILY TOP ; Start 11/10/18 at 10:00 KYLE SEVERINO Nov 10, 2018 11:03
[2018-11-10] MEDS: COLLAGENASE 5 GM (UD JAR) TOP SCH (12:36)
[2018-11-10] MEDS: CASPOFUNGIN 50 MG in SOD CHLORIDE 0.9% 250 ML IVPB SCH (12:36)
[2018-11-10] MEDS: ALBUMIN HUMAN 25% 100 ML IV SCH ×2 (12:40→18:57)
[2018-11-10] MEDS: EPOETIN ALFA-EPBX (ESRD) 4,000 UNIT/ML VIAL SC SCH (16:11)
--- NOTE | 2018-11-10 17:48 | PN ---
DATE: 11/10/2018 SUBJECTIVE: No acute changes. The patient remains on Levophed drip. No fevers overnight. WBC 12.3, platelets 145, neutrophils 69.6, BUN 10, creatinine 2.87. MICROBIOLOGY: Blood cultures negative. Urine culture grew Wandy albicans. Endotracheal aspirate growing gram-negative rods. INDWELLINGS: Trach, PEG, Mcintyre, left subclavian triple-lumen catheter. ANTIMICROBIALS: 1. Cancidas. 2. Meropenem. 3. Vancomycin. DIAGNOSTICS: Chest x-ray this morning revealed mild pulmonary edema. PHYSICAL EXAMINATION: GENERAL: This is a chronically ill-appearing, elderly man who is in no distress. HEENT: Head atraumatic, normocephalic. NECK: Supple. Tracheostomy present. CHEST: Rise symmetrical. Breath sounds diminished to bases. HEART: S1, S2. ABDOMEN: Soft, bowel sounds hypoactive. ASSESSMENT: 1. Severe sepsis with shock. 2. Wandy albicans urinary tract infection. 3. Healthcare-associated pneumonia. 4. Acute renal failure. 5. Left kidney lesion, rule out malignancy. 6. Atrial fibrillation. 7. History of brain tumor, status post craniotomy. PLAN: The patient remains unchanged. White blood cell count trending down. Continue present care, antibiotics. Follow up pulmonary, neurology and renal recommendations. Dictated By: FITO ALEXANDER P[employer] TILE SETTER for WES FLEMING MD NI/NTS Conf#: [id number] DID#: [id number] CC: CELINA HANCOCK MD;*EndCC*
[2018-11-10] MEDS: NORepinephrine 8MG/250 ML (PMX 250 ML IV SCH (22:37)
[2018-11-11] VITALS (102 sets, daily range): BP systolic 79–136; BP diastolic 41–119; PULSE 62–97; RESP 15–27
[2018-11-11] MEDS ORDERED: DEXTROSE 50% 50 ML SYRINGE ONE (00:20)
[2018-11-11] MEDS: INSULIN ASPART [NOVOLOG] 3 ML PEN SC SCH ×6 (00:30→20:53)
[2018-11-11] MEDS: DEXTROSE 50% 50 ML SYRINGE IV PRN (00:31)
[2018-11-11] MEDS ORDERED: NA BICARBONATE 8.4% 50 ML SYG IV ONE ×2 (01:00)
[2018-11-11] MEDS: ALBUMIN HUMAN 25% 100 ML IV SCH (04:28)
[2018-11-11] MEDS: VANCOMYCIN 500 MG (PMX) 100 ML IVPB SCH (05:10)
[2018-11-11] MEDS: LANSOPRAZOLE 30 MG CAP GTB SCH (05:10)
[2018-11-11] MEDS: LEVOTHYROXINE 125 MCG TAB GTB SCH (05:10)
[2018-11-11] MEDS ORDERED: NACL IV SCH (06:00)
[2018-11-11] MEDS ORDERED: DEXTROSE IV SCH (06:00)
[2018-11-11] MEDS ORDERED: SODIUM BICARBONATE IV SCH (06:00)
--- NOTE | 2018-11-11 06:34 | CONS ---
Assessment/Plan Assessment/Plan Assessment/Plan (Daily) Family did not show up for conference yesterday morning at 0800 hrs. Severe sepsis secondary to bilateral pneumonia Patient require pressor support Paroxysmal atrial fibrillation Ventilator dependent Status post trach Tube feeding Encephalopathy Questionable baseline dementia Family refuses to speak to primary care team unless patient has further deterioration in clinical course requiring more pressors higher FiO2, sepsis syndrome increase in severity Bioethics will not consider a consultation Consultation Date/Type/Reason Admit Date/Time Nov 07, 2018 at 18:54 Date/Time of Note DATE: 11/11/18 TIME: 06:34 Past Medical History Medical History: high cholesterol, hypertension, other (History of stroke, history of brain tumor status post craniotomy) Home Meds Reported Medications Amiodarone Hcl* (Amiodarone Hcl*) 200 Mg Tablet, 400 MG GTB BID, #180 TAB 11/07/18 Metoprolol Succinate* (Toprol XL*) 25 Mg Tab.sr.24h, 25 MG GTB DAILY, #30 TAB 11/07/18 Ferrous Sulfate* (Ferrous Sulfate*) 325 Mg Tabec, 330 MG GTB BID, TAB 11/07/18 Epoetin adrian* (Epogen*) 4,000 Unit/1 Ml Vial, 8000 UNIT SC [place], VIAL HOLD IF >10.5 11/07/18 Omeprazole* (Omeprazole*) 40 Mg Capsule.dr, 40 MG GTB DAILY, #30 CAP 11/07/18 Cran/Vitc/Mannose/Inulin/Brom (Uti-Stat Liquid) 3,875 Mg/30 Ml Liquid, 3875 MG GTB DAILY 11/07/18 Cranberry Extract (Cranberry) 425 Mg Capsule, 425 MG GTB DAILY, CAP 11/07/18 Magaldrate/Simethicone* (Mag-Al Plus Suspension*) 30 Ml Oral.susp, 30 ML GTB Q4 PRN for GASTROINTESTINAL UPSET, ML 11/07/18 Vancomycin HCl in Dextrose 5 % (Vancomycin 750 mg/250 ml-D5w) 750 Mg/250 Ml Plast..bag, 250 MG IV Q6 11/07/18 Potassium Chloride* (K-Dur*) 20 Meq Tab.prt.sr, 40 MEQ GTB DAILY, TAB.SA 11/07/18 Lactobacillus Acidophilus/Pect (Acidophilus-Pectin Capsule) 1 Each Capsule, 1 EACH GTB DAILY, CAP MIX WITH APPLE SAUCE 11/07/18 Sulfamethoxazole/Trimethoprim* (Bactrim Ds* Tablet) 1 Each Tablet, 1 TAB GTB BID, TAB 11/07/18 Tramadol Hcl* (Ultram*) 50 Mg Tablet, 50 MG GTB BID PRN for PAIN MANAGEMENT, TAB 10/02/18 Magnesium Hydroxide* (Milk Of Magnesia*) 400 Mg/5 Ml Oral.susp, 30 ML GTB DAILY, ML 10/02/18 Ondansetron Hcl* (Zofran*) 4 Mg Tablet, 4 MG GTB Q6H PRN for NAUSEA AND OR VOMITING, TAB 10/02/18 Levothyroxine Sodium* (Levoxyl*) 50 Mcg Tablet, 50 MCG GTB BEFORE BREAKFAST, #30 TAB 10/02/18 Polyvinyl Alcohol (Tears Again) 15 Ml Drops, 1 DRP BOTH EYES TID, BOTTLE 10/02/18 Acetaminophen* (Acetaminophen*) 650 Mg Tablet, 650 MG GTB Q4 PRN for MILD PAIN LEVEL 1-3, #30 TAB FOR FEVER AND TRACH CHANGE 10/02/18 Acetaminophen* (Acetaminophen*) 500 MG Extra Strength Tablet, 1000 MG GTB Q4 PRN for MODERATE PAIN LEVEL 4-6, TAB 10/02/18 Zinc Sulfate* (Zinc Sulfate*) 220 Mg Cap, 220 MG GTB DAILY, CAP 10/02/18 Ascorbic Acid* (Vitamin C*) 500 Mg Capsule.sa, 500 MG GTB DAILY, CAP 10/02/18 Multivitamin with Minerals (Daily Vitamin Formula-Minerals) 1 Each Tablet, 1 EACH GTB DAILY, TAB 10/02/18 Amino Acids/Protein Hydrolys (Pro-Stat Awc Liquid) 30 Ml Liquid, 30 ML GTB DAILY SUGAR FREE 10/02/18 Na Phos,M-B/Na Phos,Di-Ba (ENEMA RHOIP-LI-AOP) 133 Ml Enema, 133 ML RC EVERY 2 DAYS PRN for CONSTIPATION, ENEMA 10/02/18 Bisacodyl (Dulcolax) 10 Mg Supp.rect, 10 MG RC DAILY PRN for CONSTIPATION, SUPP.RECT 10/02/18 Docusate Sodium* (Colace*) 100 Mg Capsule, 100 MG GTB BID, #60 CAP 10/02/18 Discontinued Reported Medications Magaldrate/Simethicone* (Mag-Al Plus Suspension*) 30 Ml Oral.susp, 30 ML GTB Q4 PRN for GASTROINTESTINAL UPSET, ML 10/02/18 Pantoprazole Sodium (Protonix) 40 Mg Granpkt.dr, 40 MG GTB DAILY MIX CONTENTS WITH APPLE SAUCE THEN FLUSH WITH 30ML APPLE JUICE 10/02/18 Atorvastatin* (Atorvastatin*) 40 Mg Tablet, 40 MG GTB QHS, #30 TAB 10/02/18 Discontinued Scripts Metoprolol Succinate* (Toprol XL*) 25 Mg Tab.sr.24h, 25 MG PO DAILY, #60 Prov:TANIYA LOVE 10/11/18 Amiodarone Hcl* (Amiodarone Hcl*) 200 Mg Tablet, 400 MG PO BID, #60 TAB Prov:TANIYA LOVE 10/11/18 [Vancomycin Oral Syringe] 50 MG/ML SOLN No Conflict Check, 125 MG GTB Q6 for 4 Days, #16 Prov:TANIYA LOVE 10/11/18 Medications Current Medications Ondansetron HCl (Zofran Inj) 4 mg Q6H PRN IV NAUSEA AND/OR VOMITING; Start 11/07/18 at 20:00 Albuterol (Ventolin Hfa) 4 puff Q2H RESP THERAPY PRN INH SHORTNESS OF BREATH; Start 11/07/18 at 20:00 Ipratropium [place] (Atrovent Hfa) 4 puff Q2H RESP THERAPY PRN INH SHORTNESS OF BREATH; Start 11/07/18 at 20:00 Vancomycin HCl (Vanco Iv Per Pharmacy) VANCOMYCIN PER PHARMACY PER PROTOCOL XX ; Start 11/07/18 at 22:30 Acetaminophen (Tylenol Liquid) 650 mg Q4H PRN GTB MILD PAIN LEVEL 1-3; Start 11/08/18 at 03:30 Ascorbic Acid (Vitamin C) 500 mg DAILY GTB Last administered on 11/10/18at 08:24; Admin Dose 500 MG; Start 11/08/18 at 09:00 Epoetin Adrian-epbx (Retacrit (Esrd)) 8,000 unit [place]@1700 SC Last administered on 11/10/18at 16:11; Admin Dose 8,000 UNIT; Start 11/08/18 at 17:00 Al Hydrox/Mg Hydrox/Simethicone (Mag-Al Plus) 30 ml Q4H PRN GTB GASTROINTESTINAL UPSET; Start 11/08/18 at 03:30 Magnesium Hydroxide (Milk Of Mag) 30 ml DAILY GTB Last administered on 11/08/18 09:59; Admin Dose 30 ML; Start 11/08/18 at 09:00 Sodium Biphosphate/ Sodium Phosphate (Fleet Enema) 133 ml DAILY PRN [place] CONSTIPATION; Start 11/08/18 at 03:30 Ondansetron HCl (Zofran Tab) 4 mg Q6H PRN GTB NAUSEA AND/OR VOMITING; Start 11/08/18 at 03:30 Eye Lubricant (Artificial Tears Oph) 1 drop TID BOTH EYES Last administered on 11/10/18 20:58; Admin Dose 1 DROP; Start 11/08/18 at 09:00 Tramadol HCl (Ultram) 50 mg BID PRN GTB PAIN; Start 11/08/18 at 03:30 Zinc Sulfate (Zinc Sulfate) 220 mg DAILY GTB Last administered on 11/10/18 08:23; Admin Dose 220 MG; Start 11/08/18 at 09:00 Amiodarone HCl (Cordarone) 200 mg DAILY GTB Last administered on 11/10/18 08 :24; Admin Dose 200 MG; Start 11/08/18 at 09:00 Lactobacillus Acidophilus/ Rhamnosus (Culturelle) 1 cap BID GTB Last administered on 11/10/18 20:58; Admin Dose 1 CAP; Start 11/08/18 at 09:00 Lansoprazole (Prevacid) 30 mg DAILY@06 GTB Last administered on 11/11/18 05:10; Admin Dose 30 MG; Start 11/08/18 at 06:00 Sodium Chloride 1,000 ml @ 75 mls/hr [id number] IV Last administered on 11/10/18 18:57; Admin Dose 75 MLS/HR; Start 11/08/18 at 09:30 Norepinephrine 250 ml @ 1.875 mls/ hr TITRATE IV Last administered on 11/10/18 22:37; Admin Dose 11.25 MLS/HR; Start 11/08/18 at 11:00 Levothyroxine Sodium (Synthroid) 125 mcg BEFORE BREAKFAST GTB Last administered on 11/11/18 05:10; Admin Dose 125 MCG; Start 11/09/18 at 07:00 Heparin Sodium (Porcine) (Heparin (5000 Units/1ml)) 5,000 unit BID SC Last administered on 11/10/18at 21:00; Admin Dose 5,000 UNIT; Start 11/08/18 at 21:00 Vancomycin HCl 100 ml @ 100 mls/hr Q24H IVPB Last administered on 11/11/18 05:10; Admin Dose 100 MLS/HR; Start 11/09/18 at 07:00 Multivitamins (Multivitamin) 30 ml DAILY GTB Last administered on 11/10/18 08 :23; Admin Dose 30 ML; Start 11/09/18 at 10:00 Caspofungin 50 mg/ Sodium Chloride 250 ml @ 250 mls/hr Q24H IVPB Last administered on 11/10/18at 12:36; Admin Dose 250 MLS/HR; Start 11/10/18 at 13:00 Meropenem/Sodium Chloride 50 ml @ 100 mls/hr Q12 IVPB Last administered on 11/10/18 20:58; Admin Dose 100 MLS/HR; Start 11/09/18 at 21:00 Sodium Hypochlorite (Dakins Diluted (1/40)) 1 applic DAILY TP Last administered on 11/10/18 08:24; Admin Dose 1 APPLIC; Start 11/09/18 at 21:00 Collagenase (Santyl) This patient yen... DAILY TOP Last administered on 11/10/18at 12:36; Admin Dose 1 APPLIC; Start 11/10/18 at 10:00 Insulin Aspart (Novolog Insulin Pen) NOVOLOG *MILD* ALGORI... Q4 SC ; Start 11/11 at 01:00 Dextrose (D50w Syringe) 50 ml PRN PRN IV DECREASED GLUCOSE Last administered on 11/11/18 00:31; Admin Dose 50 ML; Start 11/11/18 at 00:30 Sodium Bicarbonate 75 meq/Dextrose/ Sodium Chloride 1,075 ml @ 75 mls/hr [id number] IV ; Start 11/11/18 at 06:00 Allergies: Coded Allergies: No Known Allergy (Unverified , 11/07/18) Past Surgical History Past Surgical Hx: other (Home, status post craniotomy otherwise unknown) Social History Alcohol Use: other (Unknown) Smoking Status: Unknown if ever smoked Drug Use: other (Unknown) Exam/Review of Systems Exam Vitals Vital Signs Date Temp Pulse Resp B/P (MAP) Pulse Ox O2 O2 Flow FiO2 Time Delivery Rate 11/11/18 65 18 100 30 05:30 11/11/18 104/50 02:30 (68) 11/11/18 Mechanical 02:00 Ventilator 11/11/18 96.8 00:00 Intake and Output 11/10/18 11/10/18 11/11/18 1515:00 23:00 07:00 IntakeIntake Total 1996.250 ml 1191.5 ml 835.65 ml OutputOutput Total 240 ml 900 ml 120 ml BalanceBalance 1756.250 ml 291.5 ml 715.65 ml Constitutional: frail Respiratory: congested cough, crackles/rales Cardiovascular: regular rate and rhythm, nl pulses Results Result Diagram: 11/11/18 0500 11/10/18 0400 Results 24hrs Laboratory Tests Test 11/10/18 06:37 11/10/18 07:12 11/10/18 18:33 11/10/18 21:01 Bedside Glucose 101 86 77 70 Test 11/11/18 00:18 11/11/18 04:53 11/11/18 05:00 Bedside Glucose 65 L 83 White Blood Count 9.3 # Red Blood Count 2.65 L Hemoglobin 7.3 L Hematocrit 24.3 L Mean Corpuscular 91.7 Volume Mean Corpuscular 27.5 L Hemoglobin Mean Corpuscular 30.0 L Hemoglobin Concent Red Cell 24.0 H Distribution Width Platelet Count 113 #L Mean Platelet Volume 10.8 H Immature 1.300 H Granulocytes % Neutrophils % 63.4 Lymphocytes % 24.5 Monocytes % 9.2 Eosinophils % 1.3 Basophils % 0.3 Nucleated Red Blood 0.3 H Cells % Immature 0.120 H Granulocytes # Neutrophils # 5.9 Lymphocytes # 2.3 Monocytes # 0.9 Eosinophils # 0.1 Basophils # 0.0 Nucleated Red Blood 0.0 Cells # Vancomycin Level 11.2 Trough Medications Medication Current Medications Ondansetron HCl (Zofran Inj) 4 mg Q6H PRN IV NAUSEA AND/OR VOMITING; Start 11/07/18 at 20:00 Albuterol (Ventolin Hfa) 4 puff Q2H RESP THERAPY PRN INH SHORTNESS OF BREATH; Start 11/07/18 at 20:00 Ipratropium [place] (Atrovent Hfa) 4 puff Q2H RESP THERAPY PRN INH SHORTNESS OF BREATH; Start 11/07/18 at 20:00 Vancomycin HCl (Vanco Iv Per Pharmacy) VANCOMYCIN PER PHARMACY PER PROTOCOL XX ; Start 11/07/18 at 22:30 Acetaminophen (Tylenol Liquid) 650 mg Q4H PRN GTB MILD PAIN LEVEL 1-3; Start 11/08/18 at 03:30 Ascorbic Acid (Vitamin C) 500 mg DAILY GTB Last administered on 11/10/18at 08: 24; Admin Dose 500 MG; Start 11/08/18 at 09:00 Epoetin Adrian-epbx (Retacrit (Esrd)) 8,000 unit [place]@1700 SC Last administered on 11/10/18at 16:11; Admin Dose 8,000 UNIT; Start 11/08/18 at 17:00 Al Hydrox/Mg Hydrox/Simethicone (Mag-Al Plus) 30 ml Q4H PRN GTB GASTROINTESTINAL UPSET; Start 11/08/18 at 03:30 Magnesium Hydroxide (Milk Of Mag) 30 ml DAILY GTB Last administered on 11/08/18at 09:59; Admin Dose 30 ML; Start 11/08/18 at 09:00 Sodium Biphosphate/ Sodium Phosphate (Fleet Enema) 133 ml DAILY PRN [place] CONSTIPATION; Start 11/08/18 at 03:30 Ondansetron HCl (Zofran Tab) 4 mg Q6H PRN GTB NAUSEA AND/OR VOMITING; Start 11/08/18 at 03:30 Eye Lubricant (Artificial Tears Oph) 1 drop TID BOTH EYES Last administered on 11/10/18at 20:58; Admin Dose 1 DROP; Start 11/08/18 at 09:00 Tramadol HCl (Ultram) 50 mg BID PRN GTB PAIN; Start 11/08/18 at 03:30 Zinc Sulfate (Zinc Sulfate) 220 mg DAILY GTB Last administered on 11/10/18at 08:23; Admin Dose 220 MG; Start 11/08/18 at 09:00 Amiodarone HCl (Cordarone) 200 mg DAILY GTB Last administered on 11/10/18at 08:24; Admin Dose 200 MG; Start 11/08/18 at 09:00 Lactobacillus Acidophilus/ Rhamnosus (Culturelle) 1 cap BID GTB Last administered on 11/10/18 20:58; Admin Dose 1 CAP; Start 11/08/18 at 09:00 Lansoprazole (Prevacid) 30 mg DAILY@06 GTB Last administered on 11/11/18 05:10; Admin Dose 30 MG; Start 11/08/18 at 06:00 Sodium Chloride 1,000 ml @ 75 mls/hr [id number] IV Last administered on 11/10/18 18:57; Admin Dose 75 MLS/HR; Start 11/08/18 at 09:30 Norepinephrine 250 ml @ 1.875 mls/ hr TITRATE IV Last administered on 11/10/18 22:37; Admin Dose 11.25 MLS/HR; Start 11/08/18 at 11:00 Levothyroxine Sodium (Synthroid) 125 mcg BEFORE BREAKFAST GTB Last administered on 11/11/18 05:10; Admin Dose 125 MCG; Start 11/09/18 at 07:00 Heparin Sodium (Porcine) (Heparin (5000 Units/1ml)) 5,000 unit BID SC Last administered on 11/10/18 21:00; Admin Dose 5,000 UNIT; Start 11/08/18 at 21:00 Vancomycin HCl 100 ml @ 100 mls/hr Q24H IVPB Last administered on 11/11/18 05:10; Admin Dose 100 MLS/HR; Start 11/09/18 at 07:00 Multivitamins (Multivitamin) 30 ml DAILY GTB Last administered on 11/10/18 08:23; Admin Dose 30 ML; Start 11/09/18 at 10:00 Caspofungin 50 mg/ Sodium Chloride 250 ml @ 250 mls/hr Q24H IVPB Last administered on 11/10/18 12:36; Admin Dose 250 MLS/HR; Start 11/10/18 at 13:00 Meropenem/Sodium Chloride 50 ml @ 100 mls/hr Q12 IVPB Last administered on 11/10/18 20:58; Admin Dose 100 MLS/HR; Start 11/09/18 at 21:00 Sodium Hypochlorite (Dakins Diluted ()) 1 applic DAILY TP Last administered on 11/10/18 08:24; Admin Dose 1 APPLIC; Start 11/09/18 at 21:00 Collagenase (Santyl) This patient yen... DAILY TOP Last administered on 11/10/18at 12:36; Admin Dose 1 APPLIC; Start 11/10/18 at 10:00 Insulin Aspart (Novolog Insulin Pen) NOVOLOG *MILD* ALGORI... Q4 SC ; Start 11/11/18 at 01:00 Dextrose (D50w Syringe) 50 ml PRN PRN IV DECREASED GLUCOSE Last administered on 11/11/18at 00:31; Admin Dose 50 ML; Start 11/11/18 at 00:30 Sodium Bicarbonate 75 meq/Dextrose/ Sodium Chloride 1,075 ml @ 75 mls/hr [id number] IV ; Start 11/11/18 at 06:00 REMA STEINER Nov 11, 2018 06:34
--- NOTE | 2018-11-11 07:00 | PN ---
DATE: 11/11/2018 SUBJECTIVE: The patient remains critically ill on pressor support, on full ventilatory support. The patient's urinary output has been adequate. The patient received bicarbonate therapy overnight as he was tachypneic. No other events noted. OBJECTIVE: VITAL SIGNS: Blood pressure 104/50, respiration 18, pulse 69, temperature 98.6. HEENT: Head is normocephalic. NECK: Supple. HEART: Regular rate. LUNGS: Show diminished breath sounds at the base. ABDOMEN: Soft, nontender to palpation without rebound or guarding. EXTREMITIES: Negative for clubbing, cyanosis. Positive edema. DERMATOLOGIC: No rashes. MUSCULOSKELETAL: No joint effusion. NEUROLOGIC: No change in exam. MEDICATIONS: Reviewed. LABORATORY DATA: Has been reviewed. IMAGING STUDIES: Have been reviewed. ASSESSMENT AND PLAN: 1. Nonoliguric acute kidney injury with previous baseline creatinine of 1.0 mg/dL. Etiology of acut e kidney injury is secondary to acute tubular necrosis due to sepsis, shock. The patient's renal fun ction remains stable, appears to be in maintenance phase of acute tubular necrosis. We will continue current treatment plan. Continue pressor support. Continue gentle volume expansion. Continue IV a ntibiotics. 2. Volume overload. Etiology is multifactorial secondary to acute kidney injury, capillary leak. W ill cautiously give the patient 1 dose of diuretics and monitor hemodynamics closely. 3. Hypernatremia, improved. Continue free water flushes. 4. Hypokalemia. Continue to monitor and replete as needed. 5. Mixed acid base disorder. The patient has metabolic acidosis, respiratory alkalosis. The patien t's ABG was reviewed, currently on bicarbonate drip as patient was overtly tachypneic. Monitor close ly. 6. Anemia. Monitor hemoglobin and hematocrit levels. 7. Mineral bone disorder. Monitor calcium and phosphorus levels. 8. Septic shock, secondary to urinary tract infection. Continue medical management, antibiotics, pr essors. 9. Dysphagia, status post PEG. Continue tube feeding if able to tolerate. 10. Acute on chronic encephalopathy. 11. History of brain tumor. 12. Renal cyst. 13. Gastrointestinal and deep vein thrombosis prophylaxis. Please note I spent over 30 minutes of critical care time with this patient. Dictated By: ZAYDA GLASER/BETZAIDA Conf#: [id number] DID#: [id number] CC: CELINA HANCOCK MD;*EndCC*
[2018-11-11] MEDS: ARTIFICIAL TEARS 15 ML OPH BOTH EYES SCH ×3 (08:09→20:49)
[2018-11-11] MEDS: DAKINS 0.0125%(1/40) 473 ML SOLUTION TP SCH (08:09)
[2018-11-11] MEDS: MEROPENEM 500MG/50 ML (PMX) 50 ML IVPB SCH ×2 (08:09→20:40)
[2018-11-11] MEDS: COLLAGENASE 5 GM (UD JAR) TOP SCH (08:09)
[2018-11-11] MEDS: BALSAM PERU/CASTOR OIL 60 GM TUBE TOP SCH (08:09)
[2018-11-11] MEDS: ASCORBIC ACID 500 MG TAB GTB SCH (08:10)
[2018-11-11] MEDS: POTASSIUM CHLORIDE 100 ML IVPB SCH ×3 (08:10→13:36)
[2018-11-11] MEDS: ZINC SULFATE 220 MG CAP GTB SCH (08:10)
[2018-11-11] MEDS: MAGNESIUM HYDROXIDE 30ML CUP GTB SCH (08:10)
[2018-11-11] MEDS: MULTIVITAMINS 30 ML CUP GTB SCH (08:10)
[2018-11-11] MEDS: AMIODARONE 200 MG TAB GTB SCH (08:10)
[2018-11-11] MEDS: HEPARIN 5,000 UNIT/1 ML VIAL SC SCH ×2 (08:23→20:45)
--- NOTE | 2018-11-11 08:35 | CONS ---
Assessment/Plan Assessment/Plan Assessment/Plan (Daily) Ventilator setting; assist control of 12, tidal volume 450, PEEP of 5, 30% FiO2. Patient is currently on Levophed at 5 mics per minute. Assessment and recommendations; 1. 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 Currently on appropriate antimicrobial regimen. 2. CHF with persistent mild hypotension. 3. Anemia and thrombus cytopenia. 4. Chronic renal insufficiency. 5. Chronic atrial fibrillation. 6. History of hypothyroidism. 7. History of DVT. Continue current supportive care. Overall prognosis is very poor. Consultation Date/Type/Reason Admit Date/Time Nov 07, 2018 at 18:54 Initial Consult Date 11/08/18 Type of Consult Pulmonary/critical care Patient is an 83-year-old male with a history of chronic respiratory failure which is ventilator dependent admitted for sepsis. Patient has been adequately fluid resuscitated and started on appropriate antimicrobial regimen. Patient still remains hypotensive requiring Levophed. Patient does have history of advanced dementia and was unable to give any history by himself whatsoever. P atient however did not appear to be in any distress. Past medical history; 1. History of dementia with a history of brain tumor. 2. VDRF. 3. History of tracheostomy and G-tube placement. 4. History of DVT. 5. History of paroxysmal atrial fibrillation. 6. History of hypothyroidism. Medications; reviewed. Allergies; none. Social history, family history, occupational histories are not available. Review of system; unable to be obtained. General exam; elderly male, on ventilator via tracheostomy, awake but noncommunicative. Currently in no distress. Requesting Provider: KYLE SEVERINO Date/Time of Note DATE: 11/11/18 TIME: 08:32 24 HR Interval Summary Free Text/Dictation Patient's condition is critical. Remains hypotensive on Levophed. General exam; elderly male, on ventilator via tracheostomy, unresponsive, currently no distress. Exam/Review of Systems Exam Vitals Vital Signs Date Temp Pulse Resp B/P (MAP) Pulse Ox O2 O2 Flow FiO2 Time Delivery Rate 11/11/18 69 22 105/53 06:15 (70) 11/11/18 100 Mechanical 06:00 Ventilator 11/11/18 30 05:30 11/11/18 96.8 04:00 Intake and Output 11/10/18 11/10/18 11/11/18 1515:00 23:00 07:00 IntakeIntake Total 1996.250 ml 1191.5 ml 920.05 ml OutputOutput Total 240 ml 900 ml 205 ml BalanceBalance 1756.250 ml 291.5 ml 715.05 ml Exam H ENT exam; supple neck, no JVD. No lymphadenopathy. Midline trachea. No thyromegaly. Tracheostomy in place. Insertion site is clean. Patient has multiple carious teeth. Pupils are small bilaterally. No neck masses. Chest exam; diminished but clear breath sounds. S1-S2 audible, no murmurs. Regular rhythm. Abdomen exam; soft, no organomegaly. G-tube in place. Bowel sounds are audible. Extremity exam; trace edema. CONSTRUCTION MILLWRIGHT exam; patient remains unresponsive. Results Result Diagram: 11/11/18 0500 11/11/18 0500 Results 24hrs Laboratory Tests Test 11/10/18 18:33 11/10/18 21:01 11/11/18 00:18 11/11/18 04:53 Bedside Glucose 77 70 65 L 83 Test 11/11/18 05:00 11/11/18 08:17 White Blood Count 9.3 # Red Blood Count 2.65 L Hemoglobin 7.3 L Hematocrit 24.3 L Mean Corpuscular 91.7 Volume Mean Corpuscular 27.5 L Hemoglobin Mean Corpuscular 30.0 L Hemoglobin Concent Red Cell Distribution 24.0 H Width Platelet Count 113 #L Mean Platelet Volume 10.8 H Immature Granulocytes 1.300 H % Neutrophils % 63.4 Lymphocytes % 24.5 Monocytes % 9.2 Eosinophils % 1.3 Basophils % 0.3 Nucleated Red Blood 0.3 H Cells % Immature Granulocytes 0.120 H # Neutrophils # 5.9 Lymphocytes # 2.3 Monocytes # 0.9 Eosinophils # 0.1 Basophils # 0.0 Nucleated Red Blood 0.0 Cells # Sodium Level 144 Potassium Level 3.2 L Chloride Level 122 H Carbon Dioxide Level 13 L Anion Gap 9 Blood Urea Nitrogen 11 Creatinine 2.74 H Glucose Level 74 Calcium Level 7.4 L Phosphorus Level 3.0 Albumin 2.0 L Vancomycin Level 11.2 Trough Bedside Glucose 74 Medications Medication Current Medications Ondansetron HCl (Zofran Inj) 4 mg Q6H PRN IV NAUSEA AND/OR VOMITING; Start 11/07/18 at 20:00 Albuterol (Ventolin Hfa) 4 puff Q2H RESP THERAPY PRN INH SHORTNESS OF BREATH; Start 11/07/18 at 20:00 Ipratropium [place] (Atrovent Hfa) 4 puff Q2H RESP THERAPY PRN INH SHORTNESS OF BREATH; Start 11/07/18 at 20:00 Vancomycin HCl (Vanco Iv Per Pharmacy) VANCOMYCIN PER PHARMACY PER PROTOCOL XX ; Start 11/07/18 at 22:30 Acetaminophen (Tylenol Liquid) 650 mg Q4H PRN GTB MILD PAIN LEVEL 1-3; Start 11/08/18 at 03:30 Ascorbic Acid (Vitamin C) 500 mg DAILY GTB Last administered on 11/10/18at 08:24; Admin Dose 500 MG; Start 11/08/18 at 09:00 Epoetin Adrian-epbx (Retacrit (Esrd)) 8,000 unit MONWED[place]RI@1700 SC Last administered on 11/10/18at 16:11; Admin Dose 8,000 UNIT; Start 11/08/18 at 17:00 Al Hydrox/Mg Hydrox/Simethicone (Mag-Al Plus) 30 ml Q4H PRN GTB GASTROINTEST INAL UPSET; Start 11/08/18 at 03:30 Magnesium Hydroxide (Milk Of Mag) 30 ml DAILY GTB Last administered on 11/08/18at 09:59; Admin Dose 30 ML; Start 11/08/18 at 09:00 Sodium Biphosphate/ Sodium Phosphate (Fleet Enema) 133 ml DAILY PRN [place] CONSTIPATION; Start 11/08/18 at 03:30 Ondansetron HCl (Zofran Tab) 4 mg Q6H PRN GTB NAUSEA AND/OR VOMITING; Start 11/08/18 at 03:30 Eye Lubricant (Artificial Tears Oph) 1 drop TID BOTH EYES Last administered on 11/10/18at 20:58; Admin Dose 1 DROP; Start 11/08/18 at 09:00 Tramadol HCl (Ultram) 50 mg BID PRN GTB PAIN; Start 11/08/18 at 03:30 Zinc Sulfate (Zinc Sulfate) 220 mg DAILY GTB Last administered on 11/10/18at 08:23; Admin Dose 220 MG; Start 11/08/18 at 09:00 Amiodarone HCl (Cordarone) 200 mg DAILY GTB Last administered on 11/10/18 08:24; Admin Dose 200 MG; Start 11/08/18 at 09:00 Lactobacillus Acidophilus/ Rhamnosus (Culturelle) 1 cap BID GTB Last administered on 11/10/18 20:58; Admin Dose 1 CAP; Start 11/08/18 at 09:00 Lansoprazole (Prevacid) 30 mg DAILY@06 GTB Last administered on 11/11/18 05:10; Admin Dose 30 MG; Start 11/08/18 at 06:00 Sodium Chloride 1,000 ml @ 75 mls/hr [id number] IV Last administered on 11/10/18 18:57; Admin Dose 75 MLS/HR; Start 11/08/18 at 09:30 Norepinephrine 250 ml @ 1.875 mls/ hr TITRATE IV Last administered on 11/10/18 22:37; Admin Dose 11.25 MLS/HR; Start 11/08/18 at 11:00 Levothyroxine Sodium (Synthroid) 125 mcg BEFORE BREAKFAST GTB Last administered on 11/11/18 05:10; Admin Dose 125 MCG; Start 11/09/18 at 07:00 Heparin Sodium (Porcine) (Heparin (5000 Units/1ml)) 5,000 unit BID SC Last ad ministered on 11/10/18 21:00; Admin Dose 5,000 UNIT; Start 11/08/18 at 21:00 Vancomycin HCl 100 ml @ 100 mls/hr Q24H IVPB Last administered on 11/11/18 05:10; Admin Dose 100 MLS/HR; Start 11/09/18 at 07:00 Multivitamins (Multivitamin) 30 ml DAILY GTB Last administered on 11/10/18 08:23; Admin Dose 30 ML; Start 11/09/18 at 10:00 Caspofungin 50 mg/ Sodium Chloride 250 ml @ 250 mls/hr Q24H IVPB Last administered on 11/10/18 12:36; Admin Dose 250 MLS/HR; Start 11/10/18 at 13:00 Meropenem/Sodium Chloride 50 ml @ 100 mls/hr Q12 IVPB Last administered on 11/10/18 20:58; Admin Dose 100 MLS/HR; Start 11/09/18 at 21:00 Sodium Hypochlorite (Dakins Diluted (/40)) 1 applic DAILY TP Last administered on 11/10/18at 08:24; Admin Dose 1 APPLIC; Start 11/09/18 at 21:00 Collagenase (Santyl) This patient yen... DAILY TOP Last administered on 11/10/18at 12:36; Admin Dose 1 APPLIC; Start 11/10/18 at 10:00 Insulin Aspart (Novolog Insulin Pen) NOVOLOG *MILD* ALGORI... Q4 SC ; Start 11/11/18 at 01:00 Dextrose (D50w Syringe) 50 ml PRN PRN IV DECREASED GLUCOSE Last administered on 11/11/18at 00:31; Admin Dose 50 ML; Start 11/11/18 at 00:30 Sodium Bicarbonate 75 meq/Dextrose/ Sodium Chloride 1,075 ml @ 75 mls/hr [id number] IV ; Start 11/11/18 at 06:00 Potassium Chloride 100 ml @ 50 mls/hr Q2H IVPB ; Start 11/11/18 at 07:00; Stop 11/11/18 at 12:59 SADI BERGER Nov 11, 2018 08:34
[2018-11-11] MEDS: SODIUM BICARBONATE IV SCH ×2 (08:51→21:41)
[2018-11-11] MEDS: DEXTROSE IV SCH ×2 (08:51→21:41)
[2018-11-11] MEDS: NACL IV SCH ×2 (08:51→21:41)
[2018-11-11] MEDS: LACTOBACILLUS RHAMNOSUS CAP GTB SCH ×2 (09:00→21:52)
--- NOTE | 2018-11-11 10:32 | PN ---
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 The patient is also said to have had a CVA in the past. Is currently managed as follows: 1. Severe sepsis with shock thought to be secondary to bilateral pneumonia and UTI -Urine cultures growing Wandy -Endotracheal cultures growing pesudomonas and K Penumo esbl 2. Septic shock -still on pressors 3. Acute renal insufficiency with associated metabolic acidosis -Improved, patient seems to be at baseline renal function at this time -Patient also with chronic kidney disease 4. Paroxysmal atrial fibrillation currently rate controlled -Patient having episodes of arrhythmia and mild bradycardia -Patient on amiodarone for tachycardia, cardiology following, reduce or DC amiodarone? 5. Recent C. difficile colitis as well as DVT, September 2018 -Patient is not on aggressive DVT treatment due to recent craniotomy, but has been cleared for DVT prophylaxis by neurology -We will have family contact surgeon who did the original surgery to see if we can treat DVT at this time 6. Chronic ventilator dependent respiratory failure status post trach -Continue ventilator management 7. Hx of bran tumor s/p craniotomy about 3 months ago and prev CVA with chronic encephalopathy -family has noted minimal improvements in the last 3months, patient is moving LUE a bit and opens eys spontaneously -Family has been updated that patient is likely never going to have significant recovery 8. Chronic neurogenic dysphagia on tube feedings 9. Chronic cardiomyopathy with last known EF of 35% 10 Poorly controlled hypothyroidism -continue Synthroid. 11. Chronic hypochromic anemia -Transfused 1 unit of packed red cells so far this admission Plan: -Continue ICU monitoring and management -Continue antibiotics per ID -Wean off pressor support as tolerated, add gentle albumin transfusion -Continue IV fluid hydration and free water flushes per nephrology -Continue serial lab monitoring and close electrolyte management -Further interventions per clinical course Overall prognosis poor, but short and long-term, strongly recommend palliative care, family meeting as soon as possible to discuss goals of care further interventions will depend on clinical course. CRITICAL CARE TIME: >35 mins of which more than half was spent at the bedside and during counselling Result Diagram: 11/11/18 0500 11/11/18 0500 Results 24hrs Laboratory Tests Test 11/10/18 18:33 11/10/18 21:01 11/11/18 00:18 11/11/18 04:53 Bedside Glucose 77 70 65 L 83 Test 11/11/18 05:00 11/11/18 08:17 White Blood Count 9.3 # Red Blood Count 2.65 L Hemoglobin 7.3 L Hematocrit 24.3 L Mean Corpuscular 91.7 Volume Mean Corpuscular 27.5 L Hemoglobin Mean Corpuscular 30.0 L Hemoglobin Concent Red Cell Distribution 24.0 H Width Platelet Count 113 #L Mean Platelet Volume 10.8 H Immature Granulocytes 1.300 H % Neutrophils % 63.4 Lymphocytes % 24.5 Monocytes % 9.2 Eosinophils % 1.3 Basophils % 0.3 Nucleated Red Blood 0.3 H Cells % Immature Granulocytes 0.120 H # Neutrophils # 5.9 Lymphocytes # 2.3 Monocytes # 0.9 Eosinophils # 0.1 Basophils # 0.0 Nucleated Red Blood 0.0 Cells # Sodium Level 144 Potassium Level 3.2 L Chloride Level 122 H Carbon Dioxide Level 13 L Anion Gap 9 Blood Urea Nitrogen 11 Creatinine 2.74 H Glucose Level 74 Calcium Level 7.4 L Phosphorus Level 3.0 Magnesium Level 1.8 Albumin 2.0 L Vancomycin Level 11.2 Trough Bedside Glucose 74 Subjective 24 Hr Interval Summary Free Text/Dictation No change in mental status remains on pressors Nursing concerns about leaking G-tube, so tube feeds on hold Exam/Review of Systems Exam Vitals Vital Signs Date Temp Pulse Resp B/P (MAP) Pulse Ox O2 O2 Flow FiO2 Time Delivery Rate 11/11/18 71 21 101/48 100 09:15 (65) 11/11/18 Mechanical 09:00 Ventilator 11/11/18 97.4 08:00 11/11/18 30 08:00 Intake and Output 11/10/18 11/10/18 11/11/18 1515:00 23:00 07:00 IntakeIntake Total 1996.250 ml 1191.5 ml 1104.425 ml OutputOutput Total 240 ml 900 ml 205 ml BalanceBalance 1756.250 ml 291.5 ml 899.425 ml Exam Constitutional: non-verbal, other (cachetic , elderly, Patient unresponsive, not following commands or tracking), Obtunded , No oriented, Psych: other (unable to assess) Head: normocephalic, atraumatic Eyes: PERRL, No icteric ENMT: trach to vent No mucosa pink and moist (dry), mouth open Respiratory: diminished breath sounds, No labored breathing Cardiovascular: regular rate and rhythm, No murmurs/extra sounds Gastrointestinal: soft, non-tender, bowel sounds, other (PEG tube noted with no cellulitis or discharge) Genitourinary - male: nl external genitalia, lugo Extremities: R side: Chronically contracted on the R paresis minimal L foot withdrawal with stimulation Neurological: altered, eyes no longer open No nl mental status, No nl speech, No nl strength Results Results 24hrs Laboratory Tests Test 11/10/18 18:33 11/10/18 21:01 11/11/18 00:18 11/11/18 04:53 Bedside Glucose 77 70 65 L 83 Test 11/11/18 05:00 11/11/18 08:17 White Blood Count 9.3 # Red Blood Count 2.65 L Hemoglobin 7.3 L Hematocrit 24.3 L Mean Corpuscular 91.7 Volume Mean Corpuscular 27.5 L Hemoglobin Mean Corpuscular 30.0 L Hemoglobin Concent Red Cell Distribution 24.0 H Width Platelet Count 113 #L Mean Platelet Volume 10.8 H Immature Granulocytes 1.300 H % Neutrophils % 63.4 Lymphocytes % 24.5 Monocytes % 9.2 Eosinophils % 1.3 Basophils % 0.3 Nucleated Red Blood 0.3 H Cells % Immature Granulocytes 0.120 H # Neutrophils # 5.9 Lymphocytes # 2.3 Monocytes # 0.9 Eosinophils # 0.1 Basophils # 0.0 Nucleated Red Blood 0.0 Cells # Sodium Level 144 Potassium Level 3.2 L Chloride Level 122 H Carbon Dioxide Level 13 L Anion Gap 9 Blood Urea Nitrogen 11 Creatinine 2.74 H Glucose Level 74 Calcium Level 7.4 L Phosphorus Level 3.0 Magnesium Level 1.8 Albumin 2.0 L Vancomycin Level 11.2 Trough Bedside Glucose 74 Medications Medication Current Medications Ondansetron HCl (Zofran Inj) 4 mg Q6H PRN IV NAUSEA AND/OR VOMITING; Start 11/07/18 at 20:00 Albuterol (Ventolin Hfa) 4 puff Q2H RESP THERAPY PRN INH SHORTNESS OF BREATH; Start 11/07/18 at 20:00 Ipratropium [place] (Atrovent Hfa) 4 puff Q2H RESP THERAPY PRN INH SHORTNESS OF BREATH; Start 11/07/18 at 20:00 Vancomycin HCl (Vanco Iv Per Pharmacy) VANCOMYCIN PER PHARMACY PER PROTOCOL XX ; Start 11/07/18 at 22:30 Acetaminophen (Tylenol Liquid) 650 mg Q4H PRN GTB MILD PAIN LEVEL 1-3; Start 11/08/18 at 03:30 Ascorbic Acid (Vitamin C) 500 mg DAILY GTB Last administered on 11/11/18at 08:10; Admin Dose 500 MG; Start 11/08/18 at 09:00 Epoetin Adrian-epbx (Retacrit (Esrd)) 8,000 unit MONWEDFRI@1700 SC Last administered on 11/10/18at 16:11; Admin Dose 8,000 UNIT; Start 11/08/18 at 17:00 Al Hydrox/Mg Hydrox/Simethicone (Mag-Al Plus) 30 ml Q4H PRN GTB GASTROINTESTINAL UPSET; Start 11/08/18 at 03:30 Magnesium Hydroxide (Milk Of Mag) 30 ml DAILY GTB Last administered on 11/08/18at 09:59; Admin Dose 30 ML; Start 11/08/18 at 09:00 Sodium Biphosphate/ Sodium Phosphate (Fleet Enema) 133 ml DAILY PRN DE CONSTIPATION; Start 11/08/18 at 03:30 Ondansetron HCl (Zofran Tab) 4 mg Q6H PRN GTB NAUSEA AND/OR VOMITING; Start 11/08/18 at 03:30 Eye Lubricant (Artificial Tears Oph) 1 drop TID BOTH EYES Last administered on 11/11/18at 08:09; Admin Dose 1 DROP; Start 11/08/18 at 09:00 Tramadol HCl (Ultram) 50 mg BID PRN GTB PAIN; Start 11/08/18 at 03:30 Zinc Sulfate (Zinc Sulfate) 220 mg DAILY GTB Last administered on 11/11/18 08:10; Admin Dose 220 MG; Start 11/08/18 at 09:00 Amiodarone HCl (Cordarone) 200 mg DAILY GTB Last administered on 11/11/18 08:10; Admin Dose 200 MG; Start 11/08/18 at 09:00 Lactobacillus Acidophilus/ Rhamnosus (Culturelle) 1 cap BID GTB Last administered on 11/10/18 20:58; Admin Dose 1 CAP; Start 11/08/18 at 09:00 Lansoprazole (Prevacid) 30 mg DAILY@06 GTB Last administered on 11/11/18 05:10; Admin Dose 30 MG; Start 11/08/18 at 06:00 Norepinephrine 250 ml @ 1.875 mls/ hr TITRATE IV Last administered on 11/10/18 22:37; Admin Dose 11.25 MLS/HR; Start 11/08/18 at 11:00 Levothyroxine Sodium (Synthroid) 125 mcg BEFORE BREAKFAST GTB Last administered on 11/11/18 05:10; Admin Dose 125 MCG; Start 11/09/18 at 07:00 Heparin Sodium (Porcine) (Heparin (5000 Units/1ml)) 5,000 unit BID SC Last administered on 11/11/18 08:23; Admin Dose 5,000 UNIT; Start 11/08/18 at 21:00 Vancomycin HCl 100 ml @ 100 mls/hr Q24H IVPB Last administered on 11/11/18 05:10; Admin Dose 100 MLS/HR; Start 11/09/18 at 07:00 Multivitamins (Multivitamin) 30 ml DAILY GTB Last administered on 11/11/18 08:10; Admin Dose 30 ML; Start 11/09/18 at 10:00 Caspofungin 50 mg/ Sodium Chloride 250 ml @ 250 mls/hr Q24H IVPB Last administered on 11/10/18 12:36; Admin Dose 250 MLS/HR; Start 11/10/18 at 13:00 Meropenem/Sodium Chloride 50 ml @ 100 mls/hr Q12 IVPB Last administered on 11/11/18 08:09; Admin Dose 100 MLS/HR; Start 11/09/18 at 21:00 Sodium Hypochlorite (Dakins Diluted (40)) 1 applic DAILY TP Last administered on 11/11/18at 08:09; Admin Dose 1 APPLIC; Start 11/09/18 at 21:00 Collagenase (Santyl) This patient yen... DAILY TOP Last administered on 11/11/18at 08:09; Admin Dose 1 APPLIC; Start 11/10/18 at 10:00 Insulin Aspart (Novolog Insulin Pen) NOVOLOG *MILD* ALGORI... Q4 SC ; Start 11/11/18 at 01:00 Dextrose (D50w Syringe) 50 ml PRN PRN IV DECREASED GLUCOSE Last administered on 11/11/18at 00:31; Admin Dose 50 ML; Start 11/11/18 at 00:30 Sodium Bicarbonate 75 meq/Dextrose/ Sodium Chloride 1,075 ml @ 75 mls/hr [id number] IV Last administered on 11/11/18at 08:51; Admin Dose 75 MLS/HR; Start 11/11/18 at 06:00 Potassium Chloride 100 ml @ 50 mls/hr Q2H IVPB Last administered on 11/11/18at 08:10; Admin Dose 50 MLS/HR; Start 11/11/18 at 07:00; Stop 11/11/18 at 12:59 KYLE SEVERINO Nov 11, 2018 10:29
--- NOTE | 2018-11-11 10:56 | CONS ---
Assessment/Plan Assessment/Plan Assessment/Plan (Recall) 83 M c/ prior stroke, brain tumor NOS s/p partial resection, and other comorbidities, who is admitted for management of encephalopathy and hypotension. The clinical picture suggests an acute toxic-metabolic on chronic encephalopathy due to acute systemic illness. Neurology is consulted for recommendations re: timing of anticoagulation.. Head CT is without acute pathology.. EEG is without epileptiform activity. UA+ P: OK to initiate anticoagulation as medically necessary [place] as able Limit sedating medications where possible UTI and other medical management and supportive care per primary Will follow clinically Consultation Date/Type/Reason Admit Date/Time Nov 07, 2018 at 18:54 Type of Consult Neurology Reason for Consultation ams Requesting Provider: KYLE SEVERINO Date/Time of Note DATE: 11/11/18 TIME: 10:56 24 HR Interval Summary Free Text/Dictation Continues acute care Exam/Review of Systems Exam Vitals Vital Signs Date Temp Pulse Resp B/P (MAP) Pulse Ox O2 O2 Flow FiO2 Time Delivery Rate 11/11/18 71 21 101/48 100 09:15 (65) 11/11/18 Mechanical 09:00 Ventilator 11/11/18 97.4 08:00 11/11/18 30 08:00 Intake and Output 11/10/18 11/10/18 11/11/18 1515:00 23:00 07:00 IntakeIntake Total 1996.250 ml 1191.5 ml 1104.425 ml OutputOutput Total 240 ml 900 ml 205 ml BalanceBalance 1756.250 ml 291.5 ml 899.425 ml Results Result Diagram: 11/11/18 0500 11/11/18 0500 Results 24hrs Laboratory Tests Test 11/10/18 18:33 11/10/18 21:01 11/11/18 00:18 11/11/18 04:53 Bedside Glucose 77 70 65 L 83 Test 11/11/18 05:00 11/11/18 08:17 White Blood Count 9.3 # Red Blood Count 2.65 L Hemoglobin 7.3 L Hematocrit 24.3 L Mean Corpuscular 91.7 Volume Mean Corpuscular 27.5 L Hemoglobin Mean Corpuscular 30.0 L Hemoglobin Concent Red Cell Distribution 24.0 H Width Platelet Count 113 #L Mean Platelet Volume 10.8 H Immature Granulocytes 1.300 H % Neutrophils % 63.4 Lymphocytes % 24.5 Monocytes % 9.2 Eosinophils % 1.3 Basophils % 0.3 Nucleated Red Blood 0.3 H Cells % Immature Granulocytes 0.120 H # Neutrophils # 5.9 Lymphocytes # 2.3 Monocytes # 0.9 Eosinophils # 0.1 Basophils # 0.0 Nucleated Red Blood 0.0 Cells # Sodium Level 144 Potassium Level 3.2 L Chloride Level 122 H Carbon Dioxide Level 13 L Anion Gap 9 Blood Urea Nitrogen 11 Creatinine 2.74 H Glucose Level 74 Calcium Level 7.4 L Phosphorus Level 3.0 Magnesium Level 1.8 Albumin 2.0 L Vancomycin Level 11.2 Trough Bedside Glucose 74 Medications Medication Current Medications Ondansetron HCl (Zofran Inj) 4 mg Q6H PRN IV NAUSEA AND/OR VOMITING; Start 11/07/18 at 20:00 Albuterol (Ventolin Hfa) 4 puff Q2H RESP THERAPY PRN INH SHORTNESS OF BREATH; Start 11/07/18 at 20:00 Ipratropium [place] (Atrovent Hfa) 4 puff Q2H RESP THERAPY PRN INH SHORTNESS OF BREATH; Start 11/07/18 at 20:00 Vancomycin HCl (Vanco Iv Per Pharmacy) VANCOMYCIN PER PHARMACY PER PROTOCOL XX ; Start 11/07/18 at 22:30 Acetaminophen (Tylenol Liquid) 650 mg Q4H PRN GTB MILD PAIN LEVEL 1-3; Start 11/08/18 at 03:30 Ascorbic Acid (Vitamin C) 500 mg DAILY GTB Last administered on 11/11/18at 08:10; Admin Dose 500 MG; Start 11/08/18 at 09:00 Epoetin Adrian-epbx (Retacrit (Esrd)) 8,000 unit MONWEDFRI@1700 SC Last a dministered on 11/10/18at 16:11; Admin Dose 8,000 UNIT; Start 11/08/18 at 17:00 Al Hydrox/Mg Hydrox/Simethicone (Mag-Al Plus) 30 ml Q4H PRN GTB GASTROINTESTINAL UPSET; Start 11/08/18 at 03:30 Magnesium Hydroxide (Milk Of Mag) 30 ml DAILY GTB Last administered on 11/08/18at 09:59; Admin Dose 30 ML; Start 11/08/18 at 09:00 Sodium Biphosphate/ Sodium Phosphate (Fleet Enema) 133 ml DAILY PRN [place] CONST IPATION; Start 11/08/18 at 03:30 Ondansetron HCl (Zofran Tab) 4 mg Q6H PRN GTB NAUSEA AND/OR VOMITING; Start 11/08/18 at 03:30 Eye Lubricant (Artificial Tears Oph) 1 drop TID BOTH EYES Last administered on 11/11/18 08:09; Admin Dose 1 DROP; Start 11/08/18 at 09:00 Tramadol HCl (Ultram) 50 mg BID PRN GTB PAIN; Start 11/08/18 at 03:30 Zinc Sulfate (Zinc Sulfate) 220 mg DAILY GTB Last administered on 11/11/18 08:10; Admin Dose 220 MG; Start 11/08/18 at 09:00 Amiodarone HCl (Cordarone) 200 mg DAILY GTB Last administered on 11/11/18 08:10; Admin Dose 200 MG; Start 11/08/18 at 09:00 Lactobacillus Acidophilus/ Rhamnosus (Culturelle) 1 cap BID GTB Last administered on 11/10/18 20:58; Admin Dose 1 CAP; Start 11/08/18 at 09:00 Lansoprazole (Prevacid) 30 mg DAILY@06 GTB Last administered on 11/11/18 05:10; Admin Dose 30 MG; Start 11/08/18 at 06:00 Norepinephrine 250 ml @ 1.875 mls/ hr TITRATE IV Last administered on 11/10/18 22:37; Admin Dose 11.25 MLS/HR; Start 11/08/18 at 11:00 Levothyroxine Sodium (Synthroid) 125 mcg BEFORE BREAKFAST GTB Last administered on 11/11/18 05:10; Admin Dose 125 MCG; Start 11/09/18 at 07:00 Heparin Sodium (Porcine) (Heparin (5000 Units/1ml)) 5,000 unit BID SC Last administered on 11/11/18 08:23; Admin Dose 5,000 UNIT; Start 11/08/18 at 21:00 Vancomycin HCl 100 ml @ 100 mls/hr Q24H IVPB Last administered on 11/11/18 05:10; Admin Dose 100 MLS/HR; Start 11/09/18 at 07:00 Multivitamins (Multivitamin) 30 ml DAILY GTB Last administered on 11/11/18 08:10; Admin Dose 30 ML; Start 11/09/18 at 10:00 Caspofungin 50 mg/ Sodium Chloride 250 ml @ 250 mls/hr Q24H IVPB Last administered on 11/10/18at 12:36; Admin Dose 250 MLS/HR; Start 11/10/18 at 13:00 Meropenem/Sodium Chloride 50 ml @ 100 mls/hr Q12 IVPB Last administered on 11/11/18at 08:09; Admin Dose 100 MLS/HR; Start 11/09/18 at 21:00 Sodium Hypochlorite (Dakins Diluted ()) 1 applic DAILY TP Last administered on 11/11/18at 08:09; Admin Dose 1 APPLIC; Start 11/09/18 at 21:00 Collagenase (Santyl) This patient yen... DAILY TOP Last administered on 11/11/18at 08:09; Admin Dose 1 APPLIC; Start 11/10/18 at 10:00 Insulin Aspart (Novolog Insulin Pen) NOVOLOG *MILD* ALGORI... Q4 SC ; Start at 01:00 Dextrose (D50w Syringe) 50 ml PRN PRN IV DECREASED GLUCOSE Last administered on 11/11/18at 00:31; Admin Dose 50 ML; Start 11/11/18 at 00:30 Sodium Bicarbonate 75 meq/Dextrose/ Sodium Chloride 1,075 ml @ 75 mls/hr [id number] IV Last administered on 11/11/18at 08:51; Admin Dose 75 MLS/HR; Start 11/11/18 at 06:00 Potassium Chloride 100 ml @ 50 mls/hr Q2H IVPB Last administered on 11/11/18at 08:10; Admin Dose 50 MLS/HR; Start 11/11/18 at 07:00; Stop 11/11/18 at 12:59 Magnesium Sulfate/ Dextrose 100 ml @ 100 mls/hr ONCE ONCE IVPB ; Start 11/11/18 at 11:00; Stop 11/11/18 at 11:59 STACIA ENRIQUE Nov 11, 2018 10:56
[2018-11-11] MEDS ORDERED: MAGNESIUM SULFATE 1 GM/D5W 100 ML IVPB ONE (11:00)
[2018-11-11] MEDS: CASPOFUNGIN 50 MG in SOD CHLORIDE 0.9% 250 ML IVPB SCH (12:25)
--- NOTE | 2018-11-11 14:14 | PN ---
DATE: 11/11/2018 SUBJECTIVE: The patient remains on Levophed drip. He is noncommunicative, in no distress, hypothermic. WBC 9.3, H and H 7.3 and 24.3, platelets 113, neutrophils 63.4, BUN 11, creatinine 2.74. MICROBIOLOGY: Blood cultures since admission negative. Endotracheal aspirate growing pseudomonas and Klebsiella extended-spectrum beta-lactamase. Urine culture grew [place]andy albicans. ANTIMICROBIALS: The patient remains on: 1. Cancidas. 2. Meropenem. 3. Vancomycin. INDWELLINGS: Trach, PEG, [place], left subclavian triple-lumen catheter. PHYSICAL EXAMINATION: GENERAL: This is a chronically ill-appearing, elderly man who is noncommunicative, in no distress. HEENT: Head atraumatic, normocephalic. NECK: Supple. Tracheostomy present. CHEST: Rise symmetrical. Breath sounds diminished to bases. HEART: S1, S2. ABDOMEN: Soft, bowel sounds present. EXTREMITIES: Cyanotic with trace edema. SKIN: Patient has unstageable sacral decubitus ulcer. ASSESSMENT: 1. Severe sepsis with shock. 2. Urinary tract infection. 3. Healthcare-associated pneumonia. 4. Acute renal failure. 5. Left kidney lesion of unclear significance. 6. Atrial fibrillation. 7. History of brain tumor, status post craniotomy. 8. History of deep venous thrombosis. PLAN: The patient remains hemodynamically unstable, on appropriate antibiotic regimen. Dictated By: FITO ALEXANDER SENIOR PROJECT ACCOUNTANT for WES FLEMING MD NI/NTS Conf#: [id number] DID#: [id number] CC: CELINA HANCOCK MD;*EndCC* MTDD
--- NOTE | 2018-11-11 14:35 | CONS ---
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 Some concerns noted regarding placement. Plan will order KUB with contrast via G-tube to assess position gastrostomy tube. In place restart tube feedings Continue new PEG care twice daily and as needed Recommend agents based on clinical course Patient seen in collaboration with Dr. Grace CC: LEATHA GRACE MD ; Consultation Date/Type/Reason Admit Date/Time Nov 07, 2018 at 18:54 Date of Consultation: Nov 11, 2018 Type of Consult GI Reason for Consultation leakage at g-tube site Date/Time of Note DATE: 11/11/18 TIME: 14:29 Hx of Present Illness This is an 81-year-old male with past medical history of proximal atrial fibrillation currently controlled, renal insufficiency, brain tumor status post craniotomy about 3 months ago, CVA with chronic encephalopathy, chronic respiratory failure status post trach placement, chronic neurogenic dysphagia with PEG and tube feedings, hypothyroidism, chronic anemia is been admitted to the hospital with severe sepsis/septic shock secondary to bilateral pneumonia and UTI. During hospitalization increase leakage from G-tube has been noted GIs been consulted for further evaluation. At time evaluation there is no leakage noted G-tube is easily flushed no residuals noted however there are some concerns regarding position of PEG tube. Patient has been afebrile currently vital signs are stable on pressors albeit. No overt signs of GI bleed there is no redness or warmth noted at G-tube site no evidence of infection. Subjective hx not possible: pt non-verbal Past Medical History Medical History: high cholesterol, hypertension, other (History of stroke, history of brain tumor status post craniotomy) Home Meds Reported Medications Amiodarone Hcl* (Amiodarone Hcl*) 200 Mg Tablet, 400 MG GTB BID, #180 TAB 11/07/18 Metoprolol Succinate* (Toprol XL*) 25 Mg Tab.sr.24h, 25 MG GTB DAILY, #30 TAB 11/07/18 Ferrous Sulfate* (Ferrous Sulfate*) 325 Mg Tabec, 330 MG GTB BID, TAB 11/07/18 Epoetin fox* (Epogen*) 4,000 Unit/1 Ml Vial, 8000 UNIT SC MONWEDFRI, VIAL HOLD IF >10.5 11/07/18 Omeprazole* (Omeprazole*) 40 Mg Capsule.dr, 40 MG GTB DAILY, #30 CAP 11/07/18 Cran/Vitc/Mannose/Inulin/Brom (Uti-Stat Liquid) 3,875 Mg/30 Ml Liquid, 3875 MG GTB DAILY 11/07/18 Cranberry Extract (Cranberry) 425 Mg Capsule, 425 MG GTB DAILY, CAP 11/07/18 Magaldrate/Simethicone* (Mag-Al Plus Suspension*) 30 Ml Oral.susp, 30 ML GTB Q4 PRN for GASTROINTESTINAL UPSET, ML 11/07/18 Vancomycin HCl in Dextrose 5 % (Vancomycin 750 mg/250 ml-D5w) 750 Mg/250 Ml Plas t..bag, 250 MG IV Q6 11/07/18 Potassium Chloride* (K-Dur*) 20 Meq Tab.prt.sr, 40 MEQ GTB DAILY, TAB.SA 11/07/18 Lactobacillus Acidophilus/Pect (Acidophilus-Pectin Capsule) 1 Each Capsule, 1 EACH GTB DAILY, CAP MIX WITH APPLE SAUCE 11/07/18 Sulfamethoxazole/Trimethoprim* (Bactrim Ds* Tablet) 1 Each Tablet, 1 TAB GTB BID, TAB 11/07/18 Tramadol Hcl* (Ultram*) 50 Mg Tablet, 50 MG GTB BID PRN for PAIN MANAGEMENT, TAB 10/02/18 Magnesium Hydroxide* (Milk Of Magnesia*) 400 Mg/5 Ml Oral.susp, 30 ML GTB DAILY, ML 10/02/18 Ondansetron Hcl* (Zofran*) 4 Mg Tablet, 4 MG GTB Q6H PRN for NAUSEA AND OR VOMITING, TAB 10/02/18 Levothyroxine Sodium* (Levoxyl*) 50 Mcg Tablet, 50 MCG GTB BEFORE BREAKFAST, #30 TAB 10/02/18 Polyvinyl Alcohol (Tears Again) 15 Ml Drops, 1 DRP BOTH EYES TID, BOTTLE 10/02/18 Acetaminophen* (Acetaminophen*) 650 Mg Tablet, 650 MG GTB Q4 PRN for MILD PAIN LEVEL 1-3, #30 TAB FOR FEVER AND TRACH CHANGE 10/02/18 Acetaminophen* (Acetaminophen*) 500 MG Extra Strength Tablet, 1000 MG GTB Q4 PRN for MODERATE PAIN LEVEL 4-6, TAB 10/02/18 Zinc Sulfate* (Zinc Sulfate*) 220 Mg Cap, 220 MG GTB DAILY, CAP 10/02/18 Ascorbic Acid* (Vitamin C*) 500 Mg Capsule.sa, 500 MG GTB DAILY, CAP 10/02/18 Multivitamin with Minerals (Daily Vitamin Formula-Minerals) 1 Each Tablet, 1 EACH GTB DAILY, TAB 10/02/18 Amino Acids/Protein Hydrolys (Pro-Stat Awc Liquid) 30 Ml Liquid, 30 ML GTB DAILY SUGAR FREE 10/02/18 Na Phos,M-B/Na Phos,Di-Ba (ENEMA HXPAO-NX-HKE) 133 Ml Enema, 133 ML RC EVERY 2 DAYS PRN for CONSTIPATION, ENEMA 10/02/18 Bisacodyl (Dulcolax) 10 Mg Supp.rect, 10 MG RC DAILY PRN for CONSTIPATION, SUPP.RECT 10/02/18 Docusate Sodium* (Colace*) 100 Mg Capsule, 100 MG GTB BID, #60 CAP 10/02/18 Discontinued Reported Medications Magaldrate/Simethicone* (Mag-Al Plus Suspension*) 30 Ml Oral.susp, 30 ML GTB Q4 PRN for GASTROINTESTINAL UPSET, ML 10/02/18 Pantoprazole Sodium (Protonix) 40 Mg Granpkt.dr, 40 MG GTB DAILY MIX CONTENTS WITH APPLE SAUCE THEN FLUSH WITH 30ML APPLE JUICE 10/02/18 Atorvastatin* (Atorvastatin*) 40 Mg Tablet, 40 MG GTB QHS, #30 TAB 10/02/18 Discontinued Scripts Metoprolol Succinate* (Toprol XL*) 25 Mg Tab.sr.24h, 25 MG PO DAILY, #60 Prov:TANIYA LOVE 10/11/18 Amiodarone Hcl* (Amiodarone Hcl*) 200 Mg Tablet, 400 MG PO BID, #60 TAB Prov:TANIYA LOVE 10/11/18 [Vancomycin Oral Syringe] 50 MG/ML SOLN No Conflict Check, 125 MG GTB Q6 for 4 Days, #16 Prov:TANIYA LOVE 10/11/18 Medications Current Medications Ondansetron HCl (Zofran Inj) 4 mg Q6H PRN IV NAUSEA AND/OR VOMITING; Start 11/07/18 at 20:00 Albuterol (Ventolin Hfa) 4 puff Q2H RESP THERAPY PRN INH SHORTNESS OF BREATH; Start 11/07/18 at 20:00 Ipratropium Becker (Atrovent Hfa) 4 puff Q2H RESP THERAPY PRN INH SHORTNESS OF BREATH; Start 11/07/18 at 20:00 Vancomycin HCl (Vanco Iv Per Pharmacy) VANCOMYCIN PER PHARMACY PER PROTOCOL XX ; Start 11/07/18 at 22:30 Acetaminophen (Tylenol Liquid) 650 mg Q4H PRN GTB MILD PAIN LEVEL 1-3; Start 11/08/18 at 03:30 Ascorbic Acid (Vitamin C) 500 mg DAILY GTB Last administered on 11/11/18at 08:10; Admin Dose 500 MG; Start 11/08/18 at 09:00 Epoetin Fox-epbx (Retacrit (Esrd)) 8,000 unit MONWEDFRI@1700 SC Last administered on 11/10/18at 16:11; Admin Dose 8,000 UNIT; Start 11/08/18 at 17:00 Al Hydrox/Mg Hydrox/Simethicone (Mag-Al Plus) 30 ml Q4H PRN GTB GASTROINTESTINAL UPSET; Start 11/08/18 at 03:30 Magnesium Hydroxide (Milk Of Mag) 30 ml DAILY GTB Last administered on 11/08/18at 09:59; Admin Dose 30 ML; Start 11/08/18 at 09:00 Sodium Biphosphate/ Sodium Phosphate (Fleet Enema) 133 ml DAILY PRN [place] CONSTIPATION; Start 11/08/18 at 03:30 Ondansetron HCl (Zofran Tab) 4 mg Q6H PRN GTB NAUSEA AND/OR VOMITING; Start 11/08/18 at 03:30 Eye Lubricant (Artificial Tears Oph) 1 drop TID BOTH EYES Last administered on 11/11/18at 12:24; Admin Dose 1 DROP; Start 11/08/18 at 09:00 Tramadol HCl (Ultram) 50 mg BID PRN GTB PAIN; Start 11/08/18 at 03:30 Zinc Sulfate (Zinc Sulfate) 220 mg DAILY GTB Last administered on 11/11/18 08:10; Admin Dose 220 MG; Start 11/08/18 at 09:00 Amiodarone HCl (Cordarone) 200 mg DAILY GTB Last administered on 11/11/18 08:10; Admin Dose 200 MG; Start 11/08/18 at 09:00 Lactobacillus Acidophilus/ Rhamnosus (Culturelle) 1 cap BID GTB Last administered on 11/10/18 20:58; Admin Dose 1 CAP; Start 11/08/18 at 09:00 Lansoprazole (Prevacid) 30 mg DAILY@06 GTB Last administered on 11/11/18 05:10; Admin Dose 30 MG; Start 11/08/18 at 06:00 Norepinephrine 250 ml @ 1.875 mls/ hr TITRATE IV Last administered on 11/10/18 22:37; Admin Dose 11.25 MLS/HR; Start 11/08/18 at 11:00 Levothyroxine Sodium (Synthroid) 125 mcg BEFORE BREAKFAST GTB Last administered on 11/11/18 05:10; Admin Dose 125 MCG; Start 11/09/18 at 07:00 Heparin Sodium (Porcine) (Heparin (5000 Units/1ml)) 5,000 unit BID SC Last ad ministered on 11/11/18 08:23; Admin Dose 5,000 UNIT; Start 11/08/18 at 21:00 Vancomycin HCl 100 ml @ 100 mls/hr Q24H IVPB Last administered on 11/11/18 05:10; Admin Dose 100 MLS/HR; Start 11/09/18 at 07:00 Multivitamins (Multivitamin) 30 ml DAILY GTB Last administered on 11/11/18 08:10; Admin Dose 30 ML; Start 11/09/18 at 10:00 Caspofungin 50 mg/ Sodium Chloride 250 ml @ 250 mls/hr Q24H IVPB Last administered on 11/11/18 12:25; Admin Dose 250 MLS/HR; Start 11/10/18 at 13:00 Meropenem/Sodium Chloride 50 ml @ 100 mls/hr Q12 IVPB Last administered on 11/11/18 08:09; Admin Dose 100 MLS/HR; Start 11/09/18 at 21:00 Sodium Hypochlorite (Dakins Diluted ()) 1 applic DAILY TP Last administered on 11/11/18at 08:09; Admin Dose 1 APPLIC; Start 11/09/18 at 21:00 Collagenase (Santyl) This patient yen... DAILY TOP Last administered on 11/11/18at 08:09; Admin Dose 1 APPLIC; Start 11/10/18 at 10:00 Insulin Aspart (Novolog Insulin Pen) NOVOLOG *MILD* ALGORI... Q4 SC ; Start 11/11/18 at 01:00 Dextrose (D50w Syringe) 50 ml PRN PRN IV DECREASED GLUCOSE Last administered on 11/11/18at 00:31; Admin Dose 50 ML; Start 11/11/18 at 00:30 Sodium Bicarbonate 75 meq/Dextrose/ Sodium Chloride 1,075 ml @ 75 mls/hr [id number] IV Last administered on 11/11/18at 08:51; Admin Dose 75 MLS/HR; Start 11/11/18 at 06:00 Allergies: Coded Allergies: No Known Allergy (Unverified , 11/07/18) Past Surgical History Past Surgical Hx: other (Home, status post craniotomy otherwise unknown) Social History Alcohol Use: other (Unknown) Smoking Status: Unknown if ever smoked Drug Use: other (Unknown) Exam/Review of Systems Exam Vitals Vital Signs Date Temp Pulse Resp B/P (MAP) Pulse Ox O2 O2 Flow FiO2 Time Delivery Rate 11/11/18 79 12:00 11/11/18 21 100 30 11:30 11/11/18 107/64 11:15 (78) 11/11/18 Mechanical 11:00 Ventilator 11/11/18 97.4 08:00 Intake and Output 11/10/18 11/10/18 11/11/18 1515:00 23:00 07:00 IntakeIntake Total 1996.250 ml 1191.5 ml 1104.425 ml OutputOutput Total 240 ml 900 ml 230 ml BalanceBalance 1756.250 ml 291.5 ml 874.425 ml Constitutional: alert, non-verbal Neck: supple Respiratory: crackles/rales Gastrointestinal: soft, bowel sounds, other (PEG in place, rectal tube ) Genitourinary - Male: other (f/c in place) Results Result Diagram: 11/11/18 0500 11/11/18 0500 Results 24hrs Laboratory Tests Test 11/10/18 18:33 11/10/18 21:01 11/11/18 00:18 11/11/18 04:53 Bedside Glucose 77 70 65 L 83 Test 11/11/18 05:00 11/11/18 08:17 11/11/18 12:28 White Blood Count 9.3 # Red Blood Count 2.65 L Hemoglobin 7.3 L Hematocrit 24.3 L Mean Corpuscular 91.7 Volume Mean Corpuscular 27.5 L Hemoglobin Mean Corpuscular 30.0 L Hemoglobin Concent Red Cell Distribution 24.0 H Width Platelet Count 113 #L Mean Platelet Volume 10.8 H Immature Granulocytes 1.300 H % Neutrophils % 63.4 Lymphocytes % 24.5 Monocytes % 9.2 Eosinophils % 1.3 Basophils % 0.3 Nucleated Red Blood 0.3 H Cells % Immature Granulocytes 0.120 H # Neutrophils # 5.9 Lymphocytes # 2.3 Monocytes # 0.9 Eosinophils # 0.1 Basophils # 0.0 Nucleated Red Blood 0.0 Cells # Sodium Level 144 Potassium Level 3.2 L Chloride Level 122 H Carbon Dioxide Level 13 L Anion Gap 9 Blood Urea Nitrogen 11 Creatinine 2.74 H Glucose Level 74 Calcium Level 7.4 L Phosphorus Level 3.0 Magnesium Level 1.8 Albumin 2.0 L Vancomycin Level 11.2 Trough Bedside Glucose 74 108 Medications Medication Current Medications Ondansetron HCl (Zofran Inj) 4 mg Q6H PRN IV NAUSEA AND/OR VOMITING; Start 11/07/18 at 20:00 Albuterol (Ventolin Hfa) 4 puff Q2H RESP THERAPY PRN INH SHORTNESS OF BREATH; Start 11/07/18 at 20:00 Ipratropium Becker (Atrovent Hfa) 4 puff Q2H RESP THERAPY PRN INH SHORTNESS OF BREATH; Start 11/07/18 at 20:00 Vancomycin HCl (Vanco Iv Per Pharmacy) VANCOMYCIN PER PHARMACY PER PROTOCOL XX ; Start 11/07/18 at 22:30 Acetaminophen (Tylenol Liquid) 650 mg Q4H PRN GTB MILD PAIN LEVEL 1-3; Start 11/08/18 at 03:30 Ascorbic Acid (Vitamin C) 500 mg DAILY GTB Last administered on 11/11/18at 08:10; Admin Dose 500 MG; Start 11/08/18 at 09:00 Epoetin Fox-epbx (Retacrit (Esrd)) 8,000 unit MONWEDFRI@1700 SC Last administered on 11/10/18 16:11; Admin Dose 8,000 UNIT; Start 11/08/18 at 17:00 Al Hydrox/Mg Hydrox/Simethicone (Mag-Al Plus) 30 ml Q4H PRN GTB GASTROINTESTINAL UPSET; Start 11/08/18 at 03:30 Magnesium Hydroxide (Milk Of Mag) 30 ml DAILY GTB Last administered on 11/08/18 09:59; Admin Dose 30 ML; Start 11/08/18 at 09:00 Sodium Biphosphate/ Sodium Phosphate (Fleet Enema) 133 ml DAILY PRN [place] CONSTIPATION; Start 11/08/18 at 03:30 Ondansetron HCl (Zofran Tab) 4 mg Q6H PRN GTB NAUSEA AND/OR VOMITING; Start 11/08/18 at 03:30 Eye Lubricant (Artificial Tears Oph) 1 drop TID BOTH EYES Last administered on 11/11/18 12:24; Admin Dose 1 DROP; Start 11/08/18 at 09:00 Tramadol HCl (Ultram) 50 mg BID PRN GTB PAIN; Start 11/08/18 at 03:30 Zinc Sulfate (Zinc Sulfate) 220 mg DAILY GTB Last administered on 11/11/18 08:10; Admin Dose 220 MG; Start 11/08/18 at 09:00 Amiodarone HCl (Cordarone) 200 mg DAILY GTB Last administered on 11/11/18 08:10; Admin Dose 200 MG; Start 11/08/18 at 09:00 Lactobacillus Acidophilus/ Rhamnosus (Culturelle) 1 cap BID GTB Last administered on 11/10/18 20:58; Admin Dose 1 CAP; Start 11/08/18 at 09:00 Lansoprazole (Prevacid) 30 mg DAILY@06 GTB Last administered on 11/11/18 05:10; Admin Dose 30 MG; Start 11/08/18 at 06:00 Norepinephrine 250 ml @ 1.875 mls/ hr TITRATE IV Last administered on 11/10/18 22:37; Admin Dose 11.25 MLS/HR; Start 11/08/18 at 11:00 Levothyroxine Sodium (Synthroid) 125 mcg BEFORE BREAKFAST GTB Last administered on 11/11/18 05:10; Admin Dose 125 MCG; Start 11/09/18 at 07:00 Heparin Sodium (Porcine) (Heparin (5000 Units/1ml)) 5,000 unit BID SC Last administered on 11/11/18 08:23; Admin Dose 5,000 UNIT; Start 11/08/18 at 21:00 Vancomycin HCl 100 ml @ 100 mls/hr Q24H IVPB Last administered on 11/11/18 05:10; Admin Dose 100 MLS/HR; Start 11/09/18 at 07:00 Multivitamins (Multivitamin) 30 ml DAILY GTB Last administered on 11/11/18 08:10; Admin Dose 30 ML; Start 11/09/18 at 10:00 Caspofungin 50 mg/ Sodium Chloride 250 ml @ 250 mls/hr Q24H IVPB Last administered on 11/11/18 12:25; Admin Dose 250 MLS/HR; Start 11/10/18 at 13:00 Meropenem/Sodium Chloride 50 ml @ 100 mls/hr Q12 IVPB Last administered on 11/11/18 08:09; Admin Dose 100 MLS/HR; Start 11/09/18 at 21:00 Sodium Hypochlorite (Dakins Diluted (/40)) 1 applic DAILY TP Last administered on 11/11/18 08:09; Admin Dose 1 APPLIC; Start 11/09/18 at 21:00 Collagenase (Santyl) This patient yen... DAILY TOP Last administered on 11/11/18 08:09; Admin Dose 1 APPLIC; Start 11/10/18 at 10:00 Insulin Aspart (Novolog Insulin Pen) NOVOLOG *MILD* ALGORI... Q4 SC ; Start 11/11/18 at 01:00 Dextrose (D50w Syringe) 50 ml PRN PRN IV DECREASED GLUCOSE Last administered on 11/11/18 00:31; Admin Dose 50 ML; Start 11/11/18 at 00:30 Sodium Bicarbonate 75 meq/Dextrose/ Sodium Chloride 1,075 ml @ 75 mls/hr [id number] IV Last administered on 11/11/18 08:51; Admin Dose 75 MLS/HR; Start 11/11/18 at 06:00 JASON MEHTA Nov 11, 2018 14:35
[2018-11-11] MEDS ORDERED: IOHEXOL 300MG/ML 30 ML BTL ONE (15:06)
[2018-11-12] VITALS (85 sets, daily range): BP systolic 86–141; BP diastolic 41–107; PULSE 66–100; RESP 15–30
[2018-11-12] MEDS: INSULIN ASPART [NOVOLOG] 3 ML PEN SC SCH ×6 (01:00→20:37)
[2018-11-12] MEDS: NORepinephrine 8MG/250 ML (PMX 250 ML IV SCH (01:48)
[2018-11-12] MEDS: VANCOMYCIN 500 MG (PMX) 100 ML IVPB SCH (06:22)
[2018-11-12] MEDS: LEVOTHYROXINE 125 MCG TAB GTB SCH (06:22)
[2018-11-12] MEDS: LANSOPRAZOLE 30 MG CAP GTB SCH (06:22)
--- NOTE | 2018-11-12 06:34 | CONS ---
Assessment/Plan Assessment/Plan Assessment/Plan (Daily) Patient remains critically ill in the intensive care unit on low-dose pressors IV antibiotics fentanyl for sedation and pain control and patient remains a full code. Family had scheduled a family conference with me on 731 at 0800 hrs. and failed to show up. Either before or after that family had stated they made a firm decision that they want to continue with full code would not discuss it any further. We were hoping that family members would at least do down and have a conference with us. I strongly agree with Dr. Tam for bioethics consultation at this time to address level of care. Most important Palliative Care issues include chronic encephalopathy, CVA, prior H/O brain tumor,VDRF,PNA. Pressor support, chronic febility and cfailure to improve with aggressive care. I am in agreement that this is futile care .. Consultation Date/Type/Reason Admit Date/Time Nov 07, 2018 at 18:54 Initial Consult Date 11/11/18 Requesting Provider: KYLE SEVERINO Date/Time of Note DATE: 11/12/18 TIME: 06:32 Exam/Review of Systems Exam Vitals Vital Signs Date Temp Pulse Resp B/P (MAP) Pulse Ox O2 O2 Flow FiO2 Time Delivery Rate 11/12/18 71 20 100 30 05:20 11/12/18 108/66 Mechanical 04:45 (80) Ventilator 11/12/18 98.1 04:00 Intake and Output 11/11/18 11/11/18 11/12/18 1515:00 23:00 07:00 IntakeIntake Total 1335.000 ml 1341.190 ml 893.60 ml OutputOutput Total 220 ml 465 ml 180 ml BalanceBalance 1115.000 ml 876.190 ml 713.60 ml Results Result Diagram: 11/12/18 0451 11/12/18 0350 Results 24hrs Laboratory Tests Test 11/11/18 08:17 11/11/18 12:28 11/11/18 16:23 11/11/18 20:53 Bedside Glucose 74 108 107 109 Test 11/12/18 01:44 11/12/18 03:50 11/12/18 04:45 11/12/18 04:51 Bedside Glucose 115 105 Sodium Level 148 H Potassium Level 4.0 Chloride Level 125 H Carbon Dioxide Level 15 L Anion Gap 8 Blood Urea Nitrogen 10 Creatinine 2.49 H Glucose Level 90 Calcium Level 7.4 L Phosphorus Level 2.5 Magnesium Level 1.9 Albumin 1.9 L White Blood Count 8.3 Red Blood Count 2.60 L Hemoglobin 7.3 L Hematocrit 23.5 L Mean Corpuscular Volume 90.4 Mean Corpuscular 28.1 L Hemoglobin Mean Corpuscular 31.1 L Hemoglobin Concent Red Cell Distribution 24.5 H Width Platelet Count 100 L Mean Platelet Volume 10.9 H Immature Granulocytes % 1.000 H Neutrophils % 51.7 Lymphocytes % 30.4 Monocytes % 13.5 H Eosinophils % 2.8 Basophils % 0.6 Nucleated Red Blood 0.2 H Cells % Immature Granulocytes # 0.080 H Neutrophils # 4.3 Lymphocytes # 2.5 Monocytes # 1.1 H Eosinophils # 0.2 Basophils # 0.1 Nucleated Red Blood 0.0 Cells # Medications Medication Current Medications Ondansetron HCl (Zofran Inj) 4 mg Q6H PRN IV NAUSEA AND/OR VOMITING; Start 10/12 11/29 at 20:00 Albuterol (Ventolin Hfa) 4 puff Q2H RESP THERAPY PRN INH SHORTNESS OF BREATH; Start 11/07/18 at 20:00 Ipratropium Line [place] (Atrovent Hfa) 4 puff Q2H RESP THERAPY PRN INH SHORTNESS OF BREATH; Start 11/07/18 at 20:00 Vancomycin HCl (Vanco Iv Per Pharmacy) VANCOMYCIN PER PHARMACY PER PROTOCOL XX ; Start 11/07/18 at 22:30 Acetaminophen (Tylenol Liquid) 650 mg Q4H PRN GTB MILD PAIN LEVEL 1-3; Start 11/08/18 at 03:30 Ascorbic Acid (Vitamin C) 500 mg DAILY GTB Last administered on 11/11/18at 08:10; Admin Dose 500 MG; Start 11/08/18 at 09:00 Epoetin Adrian-epbx (Retacrit (Esrd)) 8,000 unit MONWEDFRI@1700 SC Last administered on 11/10/18at 16:11; Admin Dose 8,000 UNIT; Start 11/08/18 at 17:00 Al Hydrox/Mg Hydrox/Simethicone (Mag-Al Plus) 30 ml Q4H PRN GTB GASTROINTESTINAL UPSET; Start 11/08/18 at 03:30 Magnesium Hydroxide (Milk Of Mag) 30 ml DAILY GTB Last administered on 11/08/18 09:59; Admin Dose 30 ML; Start 11/08/18 at 09:00 Sodium Biphosphate/ Sodium Phosphate (Fleet Enema) 133 ml DAILY PRN [place] CONSTIPATION; Start 11/08/18 at 03:30 Ondansetron HCl (Zofran Tab) 4 mg Q6H PRN GTB NAUSEA AND/OR VOMITING; Start 11/08/18 at 03:30 Eye Lubricant (Artificial Tears Oph) 1 drop TID BOTH EYES Last administered on 11/11/18 20:49; Admin Dose 1 DROP; Start 11/08/18 at 09:00 Tramadol HCl (Ultram) 50 mg BID PRN GTB PAIN; Start 11/08/18 at 03:30 Zinc Sulfate (Zinc Sulfate) 220 mg DAILY GTB Last administered on 11/11/18 08:10; Admin Dose 220 MG; Start 11/08/18 at 09:00 Amiodarone HCl (Cordarone) 200 mg DAILY GTB Last administered on 11/11/18 08:10; Admin Dose 200 MG; Start 11/08/18 at 09:00 Lactobacillus Acidophilus/ Rhamnosus (Culturelle) 1 cap BID GTB Last administered on 11/11/18 21:52; Admin Dose 1 CAP; Start 11/08/18 at 09:00 Lansoprazole (Prevacid) 30 mg DAILY@06 GTB Last administered on 11/12/18 06:22; Admin Dose 30 MG; Start 11/08/18 at 06:00 Norepinephrine 250 ml @ 1.875 mls/ hr TITRATE IV Last administered on 11/12/18 01:48; Admin Dose 3.72 MLS/HR; Start 11/08/18 at 11:00 Levothyroxine Sodium (Synthroid) 125 mcg BEFORE BREAKFAST GTB Last administered on 11/12/18 06:22; Admin Dose 125 MCG; Start 11/09/18 at 07:00 Heparin Sodium (Porcine) (Heparin (5000 Units/1ml)) 5,000 unit BID SC Last administered on 11/11/18 20:45; Admin Dose 5,000 UNIT; Start 11/08/18 at 21:00 Vancomycin HCl 100 ml @ 100 mls/hr Q24H IVPB Last administered on 11/12/18 06: 22; Admin Dose 100 MLS/HR; Start 11/09/18 at 07:00 Multivitamins (Multivitamin) 30 ml DAILY GTB Last administered on 11/11/18 08:10; Admin Dose 30 ML; Start 11/09/18 at 10:00 Caspofungin 50 mg/ Sodium Chloride 250 ml @ 250 mls/hr Q24H IVPB Last administered on 11/11/18 12:25; Admin Dose 250 MLS/HR; Start 11/10/18 at 13:00 Meropenem/Sodium Chloride 50 ml @ 100 mls/hr Q12 IVPB Last administered on 11/11/18 20:40; Admin Dose 100 MLS/HR; Start 11/09/18 at 21:00 Sodium Hypochlorite (Dakins Diluted ()) 1 applic DAILY TP Last administered on 11/11/18 08:09; Admin Dose 1 APPLIC; Start 11/09/18 at 21:00 Collagenase (Santyl) This patient yen... DAILY TOP Last administered on 11/11/18 08:09; Admin Dose 1 APPLIC; Start 11/10/18 at 10:00 Insulin Aspart (Novolog Insulin Pen) NOVOLOG *MILD* ALGORI... Q4 SC ; Start 11/11/18 at 01:00 Dextrose (D50w Syringe) 50 ml PRN PRN IV DECREASED GLUCOSE Last administered on 11/11/18 00:31; Admin Dose 50 ML; Start 11/11/18 at 00:30 Sodium Bicarbonate 75 meq/Dextrose/ Sodium Chloride 1,075 ml @ 75 mls/hr [id number] IV Last administered on 11/11/18 21:41; Admin Dose 75 MLS/HR; Start 11/11/18 at 06:00 REMA STEINER Nov 12, 2018 06:34
[2018-11-12] MEDS ORDERED: METOLAZONE 5 MG TAB PO ONE (07:00)
[2018-11-12] MEDS: MULTIVITAMINS 30 ML CUP GTB SCH (08:38)
[2018-11-12] MEDS: MAGNESIUM HYDROXIDE 30ML CUP GTB SCH (08:38)
[2018-11-12] MEDS: AMIODARONE 200 MG TAB GTB SCH (08:38)
[2018-11-12] MEDS: COLLAGENASE 5 GM (UD JAR) TOP SCH (08:39)
[2018-11-12] MEDS: MEROPENEM 500MG/50 ML (PMX) 50 ML IVPB SCH ×2 (08:39→20:38)
[2018-11-12] MEDS: LACTOBACILLUS RHAMNOSUS CAP GTB SCH ×2 (08:39→20:38)
[2018-11-12] MEDS: ZINC SULFATE 220 MG CAP GTB SCH (08:39)
[2018-11-12] MEDS: ASCORBIC ACID 500 MG TAB GTB SCH (08:39)
[2018-11-12] MEDS: HEPARIN 5,000 UNIT/1 ML VIAL SC SCH (08:40)
[2018-11-12] MEDS: DAKINS 0.0125%(1/40) 473 ML SOLUTION TP SCH (08:41)
[2018-11-12] MEDS: BALSAM PERU/CASTOR OIL 60 GM TUBE TOP SCH (08:41)
[2018-11-12] MEDS: ARTIFICIAL TEARS 15 ML OPH BOTH EYES SCH ×3 (08:41→20:38)
[2018-11-12] MEDS: NACL IV SCH ×2 (08:41→16:16)
[2018-11-12] MEDS: SODIUM BICARBONATE IV SCH ×2 (08:41→16:16)
[2018-11-12] MEDS: DEXTROSE IV SCH ×2 (08:41→16:16)
--- NOTE | 2018-11-12 09:12 | CONS ---
Assessment/Plan Assessment/Plan Assessment/Plan (Daily) Ventilator setting; assist control of 12, tidal volume 450, PEEP of 0, 30% FiO2. Patient is currently on Levophed at 2 mics per minute. Assessment and recommendations; 1. 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 Pseudomonas cultured from sputum. Patient currently on appropriate antimicr obial regimen. 2. Anemia and severe thrombocytopenia. 3. History of hypothyroidism. 4. Mild persistent hypotension. Continue current supportive care. Prognosis is extremely poor. Add midodrine 5 mg 3 times daily. Wean down Levophed as tolerated. Consultation Date/Type/Reason Admit Date/Time Nov 07, 2018 at 18:54 Initial Consult Date 11/08/18 Type of Consult Pulmonary/critical care Patient is an 83-year-old male with a history of chronic respiratory failure which is ventilator dependent admitted for sepsis. Patient has been adequately fluid resuscitated and started on appropriate antimicrobial regimen. Patient still remains hypotensive requiring Levophed. Patient does have history of advanced dementia and was unable to give any history by himself whatsoever. Patient however did not appear to be in any distress. Past medical history; 1. History of dementia with a history of brain tumor. 2. VDRF. 3. History of tracheostomy and G-tube placement. 4. History of DVT. 5. History of paroxysmal atrial fibrillation. 6. History of hypothyroidism. Medications; reviewed. Allergies; none. Social history, family history, occupational histories are not available. Review of system; unable to be obtained. General exam; elderly male, on ventilator via tracheostomy, awake but noncommunicative. Currently in no distress. Requesting Provider: KYLE SEVERINO Date/Time of Note DATE: 11/12/18 TIME: 09:09 24 HR Interval Summary Free Text/Dictation Patient's condition is critical. Still requiring Levophed at 2 mics per minute. General exam; elderly male, on ventilator via tracheostomy, unresponsive, currently in no distress. Exam/Review of Systems Exam Vitals Vital Signs Date Temp Pulse Resp B/P (MAP) Pulse Ox O2 O2 Flow FiO2 Time Delivery Rate 11/12/18 76 08:00 11/12/18 25 101/60 100 Mechanical 07:00 (74) Ventilator 11/12/18 30 05:20 11/12/18 98.1 04:00 Intake and Output 11/11/18 11/11/18 11/12/18 1515:00 23:00 07:00 IntakeIntake Total 1335.000 ml 1341.190 ml 1559.76 ml OutputOutput Total 220 ml 465 ml 280 ml BalanceBalance 1115.000 ml 876.190 ml 1279.76 ml Exam H ENT exam; supple neck, no JVD. No lymphadenopathy. Midline trachea. No thyromegaly. Tracheostomy in place. Patient has multiple carious teeth. Pupils are small bilaterally. No neck masses. Chest exam; diminished breath sounds bilaterally. No added sounds. S1-S2 audible, no murmurs. Irregular rhythm. Abdomen exam; soft, no organomegaly. G-tube in place. Bowel sounds are audible. Extremity exam; no peripheral edema. PHOTONICS TECHNICIAN exam; patient remains unresponsive. Results Result Diagram: 11/12/18 0451 11/12/18 0350 Results 24hrs Laboratory Tests Test 11/11/18 12:28 11/11/18 16:23 11/11/18 20:53 11/12/18 01:44 Bedside Glucose 108 107 109 115 Test 11/12/18 03:50 11/12/18 04:45 11/12/18 04:51 11/12/18 08:37 Sodium Level 148 H Potassium Level 4.0 Chloride Level 125 H Carbon Dioxide Level 15 L Anion Gap 8 Blood Urea Nitrogen 10 Creatinine 2.49 H Glucose Level 90 Calcium Level 7.4 L Phosphorus Level 2.5 Magnesium Level 1.9 Albumin 1.9 L Bedside Glucose 105 111 White Blood Count 8.3 Red Blood Count 2.60 L Hemoglobin 7.3 L Hematocrit 23.5 L Mean Corpuscular Volume 90.4 Mean Corpuscular 28.1 L Hemoglobin Mean Corpuscular 31.1 L Hemoglobin Concent Red Cell Distribution 24.5 H Width Platelet Count 100 L Mean Platelet Volume 10.9 H Immature Granulocytes % 1.000 H Neutrophils % 51.7 Lymphocytes % 30.4 Monocytes % 13.5 H Eosinophils % 2.8 Basophils % 0.6 Nucleated Red Blood 0.2 H Cells % Immature Granulocytes # 0.080 H Neutrophils # 4.3 Lymphocytes # 2.5 Monocytes # 1.1 H Eosinophils # 0.2 Basophils # 0.1 Nucleated Red Blood 0.0 Cells # Medications Medication Current Medications Ondansetron HCl (Zofran Inj) 4 mg Q6H PRN IV NAUSEA AND/OR VOMITING; Start 11/07/18 at 20:00 Albuterol (Ventolin Hfa) 4 puff Q2H RESP THERAPY PRN INH SHORTNESS OF BREATH; Start 11/07/18 at 20:00 Ipratropium [place] (Atrovent Hfa) 4 puff Q2H RESP THERAPY PRN INH SHORTNESS OF BREATH; Start 11/07/18 at 20:00 Vancomycin HCl (Vanco Iv Per Pharmacy) VANCOMYCIN PER PHARMACY PER PROTOCOL XX ; Start 11/07/18 at 22:30 Acetaminophen (Tylenol Liquid) 650 mg Q4H PRN GTB MILD PAIN LEVEL 1-3; Start 11/08/18 at 03:30 Ascorbic Acid (Vitamin C) 500 mg DAILY GTB Last administered on 11/12/18at 08:39; Admin Dose 500 MG; Start 11/08/18 at 09:00 Epoetin Adrian-epbx (Retacrit (Esrd)) 8,000 unit MONWEDFRI@1700 SC Last administered on 11/10/18at 16:11; Admin Dose 8,000 UNIT; Start 11/08/18 at 17:00 Al Hydrox/Mg Hydrox/Simethicone (Mag-Al Plus) 30 ml Q4H PRN GTB GASTROINTE STINAL UPSET; Start 11/08/18 at 03:30 Magnesium Hydroxide (Milk Of Mag) 30 ml DAILY GTB Last administered on 11/08/18at 09:59; Admin Dose 30 ML; Start 11/08/18 at 09:00 Sodium Biphosphate/ Sodium Phosphate (Fleet Enema) 133 ml DAILY PRN [place] CONSTIPATION; Start 11/08/18 at 03:30 Ondansetron HCl (Zofran Tab) 4 mg Q6H PRN GTB NAUSEA AND/OR VOMITING; Start 11/08/18 at 03:30 Eye Lubricant (Artificial Tears Oph) 1 drop TID BOTH EYES Last administered on 11/12/18at 08:41; Admin Dose 1 DROP; Start 11/08/18 at 09:00 Tramadol HCl (Ultram) 50 mg BID PRN GTB PAIN; Start 11/08/18 at 03:30 Zinc Sulfate (Zinc Sulfate) 220 mg DAILY GTB Last administered on 8/2/19at 08:39; Admin Dose 220 MG; Start 11/08/18 at 09:00 Amiodarone HCl (Cordarone) 200 mg DAILY GTB Last administered on 11/12/18 08:38; Admin Dose 200 MG; Start 11/08/18 at 09:00 Lactobacillus Acidophilus/ Rhamnosus (Culturelle) 1 cap BID GTB Last administered on 11/12/18 08:39; Admin Dose 1 CAP; Start 11/08/18 at 09:00 Lansoprazole (Prevacid) 30 mg DAILY@06 GTB Last administered on 11/12/18 06:22; Admin Dose 30 MG; Start 11/08/18 at 06:00 Norepinephrine 250 ml @ 1.875 mls/ hr TITRATE IV Last administered on 11/12/18 01:48; Admin Dose 3.72 MLS/HR; Start 11/08/18 at 11:00 Levothyroxine Sodium (Synthroid) 125 mcg BEFORE BREAKFAST GTB Last administered on 11/12/18 06:22; Admin Dose 125 MCG; Start 11/09/18 at 07:00 Heparin Sodium (Porcine) (Heparin (5000 Units/1ml)) 5,000 unit BID SC Last administered on 11/12/18 08:40; Admin Dose 5,000 UNIT; Start 11/08/18 at 21:00 Vancomycin HCl 100 ml @ 100 mls/hr Q24H IVPB Last administered on 11/12/18 06:22; Admin Dose 100 MLS/HR; Start 11/09/18 at 07:00 Multivitamins (Multivitamin) 30 ml DAILY GTB Last administered on 11/12/18 08:38; Admin Dose 30 ML; Start 11/09/18 at 10:00 Caspofungin 50 mg/ Sodium Chloride 250 ml @ 250 mls/hr Q24H IVPB Last administered on 11/11/18 12:25; Admin Dose 250 MLS/HR; Start 11/10/18 at 13:00 Meropenem/Sodium Chloride 50 ml @ 100 mls/hr Q12 IVPB Last administered on 11/12/18 08:39; Admin Dose 100 MLS/HR; Start 11/09/18 at 21:00 Sodium Hypochlorite (Dakins Diluted ()) 1 applic DAILY TP Last administered on 11/12/18 08:41; Admin Dose 1 APPLIC; Start 11/09/18 at 21:00 Collagenase (Santyl) This patient yen... DAILY TOP Last administered on 11/12/18 08:39; Admin Dose 1 APPLIC; Start 11/10/18 at 10:00 Insulin Aspart (Novolog Insulin Pen) NOVOLOG *MILD* ALGORI... Q4 SC ; Start 11/11/18 at 01:00 Dextrose (D50w Syringe) 50 ml PRN PRN IV DECREASED GLUCOSE Last administered on 11/11/18at 00:31; Admin Dose 50 ML; Start 11/11/18 at 00:30 Sodium Bicarbonate 75 meq/Dextrose/ Sodium Chloride 1,075 ml @ 50 mls/hr [id number] IV Last administered on 11/12/18 08:41; Admin Dose 50 MLS/HR; Start 11/11/18 at 06:00 SADI BERGER Nov 12, 2018 09:12
[2018-11-12] MEDS: MIDODRINE 5 MG TAB NGT SCH ×3 (09:30→17:34)
--- NOTE | 2018-11-12 10:54 | PN ---
Date/Time of Note Date/Time of Note DATE: 11/12/18 TIME: 10:39 Assessment/Plan VTE Prophylaxis Risk score (from Ns)>0 risk: 13 SCD applied (from Ns): Yes Pharmacological prophylaxis: NA/contraindicated Pharm contraindication: thrombocytopenia Lines/Catheters IV Catheter Type (from Nrsg): Central Line Central line still needed: Yes Urinary Cath still in place: Yes Reason Cath still needed: terminal illness/intractable pain Assessment/Plan Hospital Course Subjective: No changes re: Mental status Objective: Assessment and plan: 82-year-old male chronically encephalopathic from records, it seems this was secondary to prior brain tumor status post craniotomy and partial resection also with volume loss and chronic subdural collection who is ventilator dependent and on tube feeds and resides in the residential and was sent to us for altered mentation and hypotension. The patient is also said to have had a CVA in the past. Is currently managed as follows: 1. Severe sepsis with shock thought to be secondary to bilateral pneumonia and UTI -Urine cultures growing Wandy -Endotracheal cultures growing pesudomonas and K Penumo esbl -Id managing abx 2. Septic shock -improving, levophed weaning in progress 3. Acute renal insufficiency with associated metabolic acidosis -Per nephrology, baseline creatinine is actually 1.0. Patient remains on bicarb drip for acidosis. 4. Paroxysmal atrial fibrillation currently rate controlled -Patient having episodes of arrhythmia and mild bradycardia -Patient on amiodarone for tachycardia, cardiology is not actually on the case, however heart rate is stable now, continue monitoring -Keep mag greater than 2.0 and potassium greater than 4 -Cardiology consult if indicated 5. Recent C. difficile colitis as well as DVT, September 2018 -Patient is not on aggressive DVT treatment due to recent craniotomy, but has been cleared for DVT prophylaxis by neurology -We will have family contact surgeon who did the original surgery to see if we can treat DVT at this time 6. Chronic ventilator dependent respiratory failure status post trach -Continue ventilator management 7. Hx of bran tumor s/p craniotomy about 3 months ago and prev CVA with chronic encephalopathy -family has noted minimal improvements in the last 3months, patient is moving LUE a bit and opens eyes spontaneously -Family has been updated that patient is likely never going to have significant recovery 8. Chronic neurogenic dysphagia on tube feedings -Nursing had verbalized concern for G-tube leakage, GI consult obtained, appreciate input -Patient plan for KUB to evaluate G-tube placement 9. Chronic cardiomyopathy with last known EF of 35% 10 Poorly controlled hypothyroidism -continue Synthroid. 11. Chronic hypochromic anemia -Transfused 1 unit of packed red cells so far this admission, hemoglobin dropped again to 7.3 12. Thrombocytopenia -Likely consumptive, No evidence of bleeding at this time, hold heparin Plan: -Continue ICU monitoring and management -Continue antibiotics per ID -Wean off pressor support as tolerated, add gentle albumin transfusion -Continue IV fluid hydration and free water flushes per nephrology -Continue serial lab monitoring and close electrolyte management -Transfuse 1 unit of packed red cells to assist with volume expansion and hopefully improve blood pressures -Further interventions per clinical course November 11, 2018: Had an extensive discussion with the patient's daughter, bedside nurse, director social, and patient's son via telephone. Patient's son was not receptive to any discussion about palliative care. Patient's daughter verbalized frustration and understanding that her father was suffering, but was frustrated at her brother's refusal to see it. She became tearful multiple times during the conversation. I also explained extensively the futility of further medical care. Patient's daughter verbalized understanding, but patient's son was adamant about not wanting to discuss anything pertaining to possible palliative care. Patient's is the legal decision maker, however per patient's daughter, she defers to her son. At this point I think bioethics consultation is warranted, to assist the family and myself in determining how to proceed further. It is my medical opinion that further aggressive care in this patient is futile. It will not prolong patient's life, it will not improve his quality of life. Patient is fully appropriate for comfort measures and patient is visibly suffering. However in the interim, in keeping with patient's family wishes, we will continue current care as defined above. Care time today: Greater than 40 minutes. Result Diagram: 11/12/18 0451 11/12/18 0350 Results 24hrs Laboratory Tests Test 11/11/18 12:28 11/11/18 16:23 11/11/18 20:53 11/12/18 01:44 Bedside Glucose 108 107 109 115 Test 11/12/18 03:50 11/12/18 04:45 11/12/18 04:51 11/12/18 08:37 Sodium Level 148 H Potassium Level 4.0 Chloride Level 125 H Carbon Dioxide Level 15 L Anion Gap 8 Blood Urea Nitrogen 10 Creatinine 2.49 H Glucose Level 90 Calcium Level 7.4 L Phosphorus Level 2.5 Magnesium Level 1.9 Albumin 1.9 L Bedside Glucose 105 111 White Blood Count 8.3 Red Blood Count 2.60 L Hemoglobin 7.3 L Hematocrit 23.5 L Mean Corpuscular Volume 90.4 Mean Corpuscular 28.1 L Hemoglobin Mean Corpuscular 31.1 L Hemoglobin Concent Red Cell Distribution 24.5 H Width Platelet Count 100 L Mean Platelet Volume 10.9 H Immature Granulocytes % 1.000 H Neutrophils % 51.7 Lymphocytes % 30.4 Monocytes % 13.5 H Eosinophils % 2.8 Basophils % 0.6 Nucleated Red Blood 0.2 H Cells % Immature Granulocytes # 0.080 H Neutrophils # 4.3 Lymphocytes # 2.5 Monocytes # 1.1 H Eosinophils # 0.2 Basophils # 0.1 Nucleated Red Blood 0.0 Cells # Exam/Review of Systems Exam Vitals Vital Signs Date Temp Pulse Resp B/P (MAP) Pulse Ox O2 O2 Flow FiO2 Time Delivery Rate 11/12/18 78 22 98/67 (77) 100 Mechanical 10:00 Ventilator 11/12/18 97.6 08:00 11/12/18 30 05:20 Intake and Output 11/11/18 11/11/18 11/12/18 1515:00 23:00 07:00 IntakeIntake Total 1335.000 ml 1341.190 ml 1559.76 ml OutputOutput Total 220 ml 465 ml 280 ml BalanceBalance 1115.000 ml 876.190 ml 1279.76 ml Results Results 24hrs Laboratory Tests Test 11/11/18 12:28 11/11/18 16:23 11/11/18 20:53 11/12/18 01:44 Bedside Glucose 108 107 109 115 Test 11/12/18 03:50 11/12/18 04:45 11/12/18 04:51 11/12/18 08:37 Sodium Level 148 H Potassium Level 4.0 Chloride Level 125 H Carbon Dioxide Level 15 L Anion Gap 8 Blood Urea Nitrogen 10 Creatinine 2.49 H Glucose Level 90 Calcium Level 7.4 L Phosphorus Level 2.5 Magnesium Level 1.9 Albumin 1.9 L Bedside Glucose 105 111 White Blood Count 8.3 Red Blood Count 2.60 L Hemoglobin 7.3 L Hematocrit 23.5 L Mean Corpuscular Volume 90.4 Mean Corpuscular 28.1 L Hemoglobin Mean Corpuscular 31.1 L Hemoglobin Concent Red Cell Distribution 24.5 H Width Platelet Count 100 L Mean Platelet Volume 10.9 H Immature Granulocytes % 1.000 H Neutrophils % 51.7 Lymphocytes % 30.4 Monocytes % 13.5 H Eosinophils % 2.8 Basophils % 0.6 Nucleated Red Blood 0.2 H Cells % Immature Granulocytes # 0.080 H Neutrophils # 4.3 Lymphocytes # 2.5 Monocytes # 1.1 H Eosinophils # 0.2 Basophils # 0.1 Nucleated Red Blood 0.0 Cells # Medications Medication Current Medications Ondansetron HCl (Zofran Inj) 4 mg Q6H PRN IV NAUSEA AND/OR VOMITING; Start 11/07/18 at 20:00 Albuterol (Ventolin Hfa) 4 puff Q2H RESP THERAPY PRN INH SHORTNESS OF BREATH; Start 11/07/18 at 20:00 Ipratropium [place] (Atrovent Hfa) 4 puff Q2H RESP THERAPY PRN INH SHORTNESS OF BREATH; Start 11/07/18 at 20:00 Vancomycin HCl (Vanco Iv Per Pharmacy) VANCOMYCIN PER PHARMACY PER PROTOCOL XX ; Start 11/07/18 at 22:30 Acetaminophen (Tylenol Liquid) 650 mg Q4H PRN GTB MILD PAIN LEVEL 1-3; Start 11/08/18 at 03:30 Ascorbic Acid (Vitamin C) 500 mg DAILY GTB Last administered on 11/12/18at 08:39; Admin Dose 500 MG; Start 11/08/18 at 09:00 Epoetin Adrian-epbx (Retacrit (Esrd)) 8,000 unit MONWEDFRI@1700 SC Last administered on 11/10/18at 16:11; Admin Dose 8,000 UNIT; Start 11/08/18 at 17:00 Al Hydrox/Mg Hydrox/Simethicone (Mag-Al Plus) 30 ml Q4H PRN GTB GASTROINTESTINAL UPSET; Start 11/08/18 at 03:30 Magnesium Hydroxide (Milk Of Mag) 30 ml DAILY GTB Last administered on at 09:59; Admin Dose 30 ML; Start 11/08/18 at 09:00 Sodium Biphosphate/ Sodium Phosphate (Fleet Enema) [address] CONSTIPATION; Start 11/08/18 at 03:30 Ondansetron HCl (Zofran Tab) 4 mg Q6H PRN GTB NAUSEA AND/OR VOMITING; Start 11/08/18 at 03:30 Eye Lubricant (Artificial Tears Oph) 1 drop TID BOTH EYES Last administered on 11/12/18 08:41; Admin Dose 1 DROP; Start 11/08/18 at 09:00 Tramadol HCl (Ultram) 50 mg BID PRN GTB PAIN; Start 11/08/18 at 03:30 Zinc Sulfate (Zinc Sulfate) 220 mg DAILY GTB Last administered on 11/12/18 08:39; Admin Dose 220 MG; Start 11/08/18 at 09:00 Amiodarone HCl (Cordarone) 200 mg DAILY GTB Last administered on 11/12/18 08:38; Admin Dose 200 MG; Start 11/08/18 at 09:00 Lactobacillus Acidophilus/ Rhamnosus (Culturelle) 1 cap BID GTB Last adminis tered on 11/12/18 08:39; Admin Dose 1 CAP; Start 11/08/18 at 09:00 Lansoprazole (Prevacid) 30 mg DAILY@06 GTB Last administered on 11/12/18 06:22; Admin Dose 30 MG; Start 11/08/18 at 06:00 Norepinephrine 250 ml @ 1.875 mls/ hr TITRATE IV Last administered on 11/12/18 01:48; Admin Dose 3.72 MLS/HR; Start 11/08/18 at 11:00 Levothyroxine Sodium (Synthroid) 125 mcg BEFORE BREAKFAST GTB Last admin istered on 11/12/18 06:22; Admin Dose 125 MCG; Start 11/09/18 at 07:00 Heparin Sodium (Porcine) (Heparin (5000 Units/1ml)) 5,000 unit BID SC Last administered on 11/12/18 08:40; Admin Dose 5,000 UNIT; Start 11/08/18 at 21:00; Status Hold Vancomycin HCl 100 ml @ 100 mls/hr Q24H IVPB Last administered on 11/12/18 06:22; Admin Dose 100 MLS/HR; Start 11/09/18 at 07:00 Multivitamins (Multivitamin) 30 ml DAILY GTB Last administered on 11/12/18 08:38; Admin Dose 30 ML; Start 11/09/18 at 10:00 Caspofungin 50 mg/ Sodium Chloride 250 ml @ 250 mls/hr Q24H IVPB Last administered on 11/11/18 12:25; Admin Dose 250 MLS/HR; Start 11/10/18 at 13:00 Meropenem/Sodium Chloride 50 ml @ 100 mls/hr Q12 IVPB Last administered on 11/12/18 08:39; Admin Dose 100 MLS/HR; Start 11/09/18 at 21:00 Sodium Hypochlorite (Dakins Diluted ()) 1 applic DAILY TP Last administered on 11/12/18 08:41; Admin Dose 1 APPLIC; Start 11/09/18 at 21:00 Collagenase (Santyl) This patient yen... DAILY TOP Last administered on 11/12/18 08:39; Admin Dose 1 APPLIC; Start 11/10/18 at 10:00 Insulin Aspart (Novolog Insulin Pen) NOVOLOG *MILD* ALGORI... Q4 SC ; Start 11/11/18 at 01:00 Dextrose (D50w Syringe) 50 ml PRN PRN IV DECREASED GLUCOSE Last administered on 11/11/18 00:31; Admin Dose 50 ML; Start 11/11/18 at 00:30 Sodium Bicarbonate 75 meq/Dextrose/ Sodium Chloride 1,075 ml @ 50 mls/hr [id number] IV Last administered on 11/12/18 08:41; Admin Dose 50 MLS/HR; Start 11/11/18 at 06:00 Midodrine (Proamatine) 5 mg TID@09,13,17 NGT Last administered on 11/12/18 09:30; Admin Dose 5 MG; Start 11/12/18 at 09:24 KYLE SEVERINO Nov 12, 2018 10:49
[2018-11-12] MEDS: CASPOFUNGIN 50 MG in SOD CHLORIDE 0.9% 250 ML IVPB SCH (13:14)
--- NOTE | 2018-11-12 13:15 | CONS ---
Assessment/Plan Assessment/Plan Hospital Course (Demo Recall) No acute changes patient is off pressors since this morning in no distress afebrile WBC 8.3 H&H 7.3 at 23.5 platelets 100 neutrophils 51.7 BUN 10 creatinine 2.49 MICROBIOLOGY: Blood cultures since admission negative. Endotracheal aspirate growing pseudomonas and Klebsiella extended-spectrum beta-lactamase. Urine culture grew Wandy albicans. ANTIMICROBIALS: The patient remains on: 1. Cancidas. 2. Meropenem. 3. Vancomycin. INDWELLINGS: Trach, PEG, Mcintyre, left subclavian triple-lumen catheter. PHYSICAL EXAMINATION: GENERAL: This is a chronically ill-appearing, elderly man who is noncommunicative, in no distress. HEENT: Head atraumatic, normocephalic. NECK: Supple. Tracheostomy present. CHEST: Rise symmetrical. Breath sounds diminished to bases. HEART: S1, S2. ABDOMEN: Soft, bowel sounds present. EXTREMITIES: Cyanotic with trace edema. SKIN: Patient has unstageable sacral decubitus ulcer. ASSESSMENT: 1. Severe sepsis with shock. 2. Urinary tract infection. 3. Healthcare-associated pneumonia. 4. Acute renal failure. 5. Left kidney lesion of unclear significance. 6. Atrial fibrillation. 7. History of brain tumor, status post craniotomy. 8. History of deep venous thrombosis. PLAN: Stable off pressors, continue antibiotics Consultation Date/Type/Reason Admit Date/Time Nov 07, 2018 at 18:54 Initial Consult Date 11/08/18 Type of Consult id Requesting Provider: KYLE SEVERINO Date/Time of Note DATE: 11/12/18 TIME: 13:12 Exam/Review of Systems Exam Vitals Vital Signs Date Temp Pulse Resp B/P (MAP) Pulse Ox O2 O2 Flow FiO2 Time Delivery Rate 11/12/18 97.9 76 26 99/55 (70) 100 Mechanical 12:00 Ventilator 11/12/18 30 11:20 Intake and Output 11/11/18 11/11/18 11/12/18 1515:00 23:00 07:00 IntakeIntake Total 1335.000 ml 1341.190 ml 1559.76 ml OutputOutput Total 220 ml 465 ml 280 ml BalanceBalance 1115.000 ml 876.190 ml 1279.76 ml Results Result Diagram: 11/12/18 0451 11/12/18 0350 Results 24hrs Laboratory Tests Test 11/11/18 16:23 11/11/18 20:53 11/12/18 01:44 11/12/18 03:50 Bedside Glucose 107 109 115 Sodium Level 148 H Potassium Level 4.0 Chloride Level 125 H Carbon Dioxide Level 15 L Anion Gap 8 Blood Urea Nitrogen 10 Creatinine 2.49 H Glucose Level 90 Calcium Level 7.4 L Phosphorus Level 2.5 Magnesium Level 1.9 Iron Level 38 Total Iron Binding 102 L Capacity Percent Iron Saturation 37 Albumin 1.9 L Test 11/12/18 04:45 11/12/18 04:51 11/12/18 08:37 Bedside Glucose 105 111 White Blood Count 8.3 Red Blood Count 2.60 L Hemoglobin 7.3 L Hematocrit 23.5 L Mean Corpuscular Volume 90.4 Mean Corpuscular 28.1 L Hemoglobin Mean Corpuscular 31.1 L Hemoglobin Concent Red Cell Distribution 24.5 H Width Platelet Count 100 L Mean Platelet Volume 10.9 H Immature Granulocytes % 1.000 H Neutrophils % 51.7 Lymphocytes % 30.4 Monocytes % 13.5 H Eosinophils % 2.8 Basophils % 0.6 Nucleated Red Blood 0.2 H Cells % Immature Granulocytes # 0.080 H Neutrophils # 4.3 Lymphocytes # 2.5 Monocytes # 1.1 H Eosinophils # 0.2 Basophils # 0.1 Nucleated Red Blood 0.0 Cells # Medications Medication Current Medications Ondansetron HCl (Zofran Inj) 4 mg Q6H PRN IV NAUSEA AND/OR VOMITING; Start 11/07/18 at 20:00 Albuterol (Ventolin Hfa) 4 puff Q2H RESP THERAPY PRN INH SHORTNESS OF BREATH; Start 11/07/18 at 20:00 Ipratropium [place] (Atrovent Hfa) 4 puff Q2H RESP THERAPY PRN INH SHORTNESS OF BREATH; Start 11/07/18 at 20:00 Vancomycin HCl (Vanco Iv Per Pharmacy) VANCOMYCIN PER PHARMACY PER PROTOCOL XX ; Start 11/07/18 at 22:30 Acetaminophen (Tylenol Liquid) 650 mg Q4H PRN GTB MILD PAIN LEVEL 1-3; Start 11/08/18 at 03:30 Ascorbic Acid (Vitamin C) 500 mg DAILY GTB Last administered on 11/12/18at 08:39; Admin Dose 500 MG; Start 11/08/18 at 09:00 Epoetin Adrian-epbx (Retacrit (Esrd)) 8,000 unit MONWEDFRI@1700 SC Last administered on 11/10/18 16:11; Admin Dose 8,000 UNIT; Start 11/08/18 at 17:00 Al Hydrox/Mg Hydrox/Simethicone (Mag-Al Plus) 30 ml Q4H PRN GTB GASTROINTESTINAL UPSET; Start 11/08/18 at 03:30 Magnesium Hydroxide (Milk Of Mag) 30 ml DAILY GTB Last administered on 11/08/18 09:59; Admin Dose 30 ML; Start 11/08/18 at 09:00 Sodium Biphosphate/ Sodium Phosphate (Fleet Enema) 133 ml DAILY PRN [place] CONSTIPATION; Start 11/08/18 at 03:30 Ondansetron HCl (Zofran Tab) 4 mg Q6H PRN GTB NAUSEA AND/OR VOMITING; Start 11/08/18 at 03:30 Eye Lubricant (Artificial Tears Oph) 1 drop TID BOTH EYES Last administered on 11/12/18 08:41; Admin Dose 1 DROP; Start 11/08/18 at 09:00 Tramadol HCl (Ultram) 50 mg BID PRN GTB PAIN; Start 11/08/18 at 03:30 Zinc Sulfate (Zinc Sulfate) 220 mg DAILY GTB Last administered on 11/12/18 08:39; Admin Dose 220 MG; Start 11/08/18 at 09:00 Amiodarone HCl (Cordarone) 200 mg DAILY GTB Last administered on 11/12/18 08:38; Admin Dose 200 MG; Start 11/08/18 at 09:00 Lactobacillus Acidophilus/ Rhamnosus (Culturelle) 1 cap BID GTB Last administered on 11/12/18 08:39; Admin Dose 1 CAP; Start 11/08/18 at 09:00 Lansoprazole (Prevacid) 30 mg DAILY@06 GTB Last administered on 11/12/18 06:22; Admin Dose 30 MG; Start 11/08/18 at 06:00 Norepinephrine 250 ml @ 1.875 mls/ hr TITRATE IV Last administered on 11/12/18 01:48; Admin Dose 3.72 MLS/HR; Start 11/08/18 at 11:00 Levothyroxine Sodium (Synthroid) 125 mcg BEFORE BREAKFAST GTB Last administered on 11/12/18 06:22; Admin Dose 125 MCG; Start 11/09/18 at 07:00 Heparin Sodium (Porcine) (Heparin (5000 Units/1ml)) 5,000 unit BID SC Last administered on 11/12/18 08:40; Admin Dose 5,000 UNIT; Start 11/08/18 at 21:00; Status Hold Vancomycin HCl 100 ml @ 100 mls/hr Q24H IVPB Last administered on 11/12/18 06:22; Admin Dose 100 MLS/HR; Start 11/09/18 at 07:00 Multivitamins (Multivitamin) 30 ml DAILY GTB Last administered on 11/12/18 08:38; Admin Dose 30 ML; Start 11/09/18 at 10:00 Caspofungin 50 mg/ Sodium Chloride 250 ml @ 250 mls/hr Q24H IVPB Last administered on 11/11/18 12:25; Admin Dose 250 MLS/HR; Start 11/10/18 at 13:00 Meropenem/Sodium Chloride 50 ml @ 100 mls/hr Q12 IVPB Last administered on 11/12/18 08:39; Admin Dose 100 MLS/HR; Start 11/09/18 at 21:00 Sodium Hypochlorite (Dakins Diluted ()) 1 applic DAILY TP Last administered on 11/12/18 08:41; Admin Dose 1 APPLIC; Start 11/09/18 at 21:00 Collagenase (Santyl) This patient yen... DAILY TOP Last administered on 11/12/18 08:39; Admin Dose 1 APPLIC; Start 11/10/18 at 10:00 Insulin Aspart (Novolog Insulin Pen) NOVOLOG *MILD* ALGORI... Q4 SC ; Start 11/11/18 at 01:00 Dextrose (D50w Syringe) 50 ml PRN PRN IV DECREASED GLUCOSE Last administered on 11/11/18 00:31; Admin Dose 50 ML; Start 11/11/18 at 00:30 Sodium Bicarbonate 75 meq/Dextrose/ Sodium Chloride 1,075 ml @ 50 mls/hr [id number] IV Last administered on 11/12/18 08:41; Admin Dose 50 MLS/HR; Start 11/11/18 at 06:00 Midodrine (Proamatine) 5 mg TID@09,13,17 NGT Last administered on 11/12/18at 09:30; Admin Dose 5 MG; Start 11/12/18 at 09:24 FITO MONTEZ NP Nov 12, 2018 13:15
--- NOTE | 2018-11-12 14:59 | CONS ---
Assessment/Plan Assessment/Plan Assessment/Plan (Recall) 83 M c/ prior stroke, brain tumor NOS s/p partial resection, and other comorbidities, who is admitted for management of encephalopathy and hypotension. The clinical picture suggests an acute toxic-metabolic on chronic encephalopathy due to acute systemic illness. Neurology is consulted for recommendations re: timing of anticoagulation.. Head CT is without acute pathology.. EEG is without epileptiform activity. UA+ P: OK to initiate anticoagulation as medically necessary [place] as able Limit sedating medications where possible UTI and other medical management and supportive care per primary Will sign off for now; please call w/ ?s Consultation Date/Type/Reason Admit Date/Time Nov 07, 2018 at 18:54 Type of Consult Neurology Reason for Consultation ams Requesting Provider: KYLE SEVERINO Date/Time of Note DATE: 11/12/18 TIME: 14:59 24 HR Interval Summary Free Text/Dictation Continues acute care Exam/Review of Systems Exam Vitals Vital Signs Date Temp Pulse Resp B/P (MAP) Pulse Ox O2 O2 Flow FiO2 Time Delivery Rate 11/12/18 75 22 91/50 (64) 100 13:15 11/12/18 Mechanical 13:00 Ventilator 11/12/18 97.9 12:00 11/12/18 30 11:20 Intake and Output 11/11/18 11/11/18 11/12/18 1515:00 23:00 07:00 IntakeIntake Total 1335.000 ml 1341.190 ml 1559.76 ml OutputOutput Total 220 ml 465 ml 280 ml BalanceBalance 1115.000 ml 876.190 ml 1279.76 ml Results Result Diagram: 11/12/18 0451 11/12/18 0350 Results 24hrs Laboratory Tests Test 11/11/18 16:23 11/11/18 20:53 11/12/18 01:44 11/12/18 03:50 Bedside Glucose 107 109 115 Sodium Level 148 H Potassium Level 4.0 Chloride Level 125 H Carbon Dioxide Level 15 L Anion Gap 8 Blood Urea Nitrogen 10 Creatinine 2.49 H Glucose Level 90 Calcium Level 7.4 L Phosphorus Level 2.5 Magnesium Level 1.9 Iron Level 38 Total Iron Binding 102 L Capacity Percent Iron Saturation 37 Albumin 1.9 L Test 11/12/18 04:45 11/12/18 04:51 11/12/18 08:37 11/12/18 13:12 Bedside Glucose 105 111 98 White Blood Count 8.3 Red Blood Count 2.60 L Hemoglobin 7.3 L Hematocrit 23.5 L Mean Corpuscular Volume 90.4 Mean Corpuscular 28.1 L Hemoglobin Mean Corpuscular 31.1 L Hemoglobin Concent Red Cell Distribution 24.5 H Width Platelet Count 100 L Mean Platelet Volume 10.9 H Immature Granulocytes % 1.000 H Neutrophils % 51.7 Lymphocytes % 30.4 Monocytes % 13.5 H Eosinophils % 2.8 Basophils % 0.6 Nucleated Red Blood 0.2 H Cells % Immature Granulocytes # 0.080 H Neutrophils # 4.3 Lymphocytes # 2.5 Monocytes # 1.1 H Eosinophils # 0.2 Basophils # 0.1 Nucleated Red Blood 0.0 Cells # Medications Medication Current Medications Ondansetron HCl (Zofran Inj) 4 mg Q6H PRN IV NAUSEA AND/OR VOMITING; Start 11/07/18 at 20:00 Albuterol (Ventolin Hfa) 4 puff Q2H RESP THERAPY PRN INH SHORTNESS OF BREATH; Start 11/07/18 at 20:00 Ipratropium [place] (Atrovent Hfa) 4 puff Q2H RESP THERAPY PRN INH SHORTNESS OF BREATH; Start 11/07/18 at 20:00 Vancomycin HCl (Vanco Iv Per Pharmacy) VANCOMYCIN PER PHARMACY PER PROTOCOL XX ; Start 11/07/18 at 22:30 Acetaminophen (Tylenol Liquid) 650 mg Q4H PRN GTB MILD PAIN LEVEL 1-3; Start 11/08/18 at 03:30 Ascorbic Acid (Vitamin C) 500 mg DAILY GTB Last administered on 11/12/18at 08:39; Admin Dose 500 MG; Start 11/08/18 at 09:00 Epoetin Adrian-epbx (Retacrit (Esrd)) 8,000 unit MONWEDFRI@1700 SC Last administered on 11/10/18at 16:11; Admin Dose 8,000 UNIT; Start 11/08/18 at 17:00 Al Hydrox/Mg Hydrox/Simethicone (Mag-Al Plus) 30 ml Q4H PRN GTB GASTROINTESTINAL UPSET; Start 11/08/18 at 03:30 Magnesium Hydroxide (Milk Of Mag) 30 ml DAILY GTB Last administered on 11/08/18at 09:59; Admin Dose 30 ML; Start 11/08/18 at 09:00 Sodium Biphosphate/ Sodium Phosphate (Fleet Enema) 133 ml DAILY PRN [place] CONSTIPATION; Start 11/08/18 at 03:30 Ondansetron HCl (Zofran Tab) 4 mg Q6H PRN GTB NAUSEA AND/OR VOMITING; Start 11/08/18 at 03:30 Eye Lubricant (Artificial Tears Oph) 1 drop TID BOTH EYES Last administered on 11/12/18 13:14; Admin Dose 1 DROP; Start 11/08/18 at 09:00 Tramadol HCl (Ultram) 50 mg BID PRN GTB PAIN; Start 11/08/18 at 03:30 Zinc Sulfate (Zinc Sulfate) 220 mg DAILY GTB Last administered on 11/12/18 08:39; Admin Dose 220 MG; Start 11/08/18 at 09:00 Amiodarone HCl (Cordarone) 200 mg DAILY GTB Last administered on 11/12/18 08:38; Admin Dose 200 MG; Start 11/08/18 at 09:00 Lactobacillus Acidophilus/ Rhamnosus (Culturelle) 1 cap BID GTB Last administered on 11/12/18 08:39; Admin Dose 1 CAP; Start 11/08/18 at 09:00 Lansoprazole (Prevacid) 30 mg DAILY@06 GTB Last administered on 11/12/18 06:22; Admin Dose 30 MG; Start 11/08/18 at 06:00 Norepinephrine 250 ml @ 1.875 mls/ hr TITRATE IV Last administered on 11/12/18 01:48; Admin Dose 3.72 MLS/HR; Start 11/08/18 at 11:00 Levothyroxine Sodium (Synthroid) 125 mcg BEFORE BREAKFAST GTB Last administered on 11/12/18 06:22; Admin Dose 125 MCG; Start 11/09/18 at 07:00 Heparin Sodium (Porcine) (Heparin (5000 Units/1ml)) 5,000 unit BID SC Last administered on 11/12/18 08:40; Admin Dose 5,000 UNIT; Start 11/08/18 at 21:00; Status Hold Vancomycin HCl 100 ml @ 100 mls/hr Q24H IVPB Last administered on 11/12/18 06:22; Admin Dose 100 MLS/HR; Start 11/09/18 at 07:00 Multivitamins (Multivitamin) 30 ml DAILY GTB Last administered on 11/12/18 08:38; Admin Dose 30 ML; Start 11/09/18 at 10:00 Caspofungin 50 mg/ Sodium Chloride 250 ml @ 250 mls/hr Q24H IVPB Last administered on 11/12/18 13:14; Admin Dose 250 MLS/HR; Start 11/10/18 at 13:00 Meropenem/Sodium Chloride 50 ml @ 100 mls/hr Q12 IVPB Last administered on 11/12 08:39; Admin Dose 100 MLS/HR; Start 11/09/18 at 21:00 Sodium Hypochlorite (Dakins Diluted ()) 1 applic DAILY TP Last administered on 11/12/18 08:41; Admin Dose 1 APPLIC; Start 11/09/18 at 21:00 Collagenase (Santyl) This patient yen... DAILY TOP Last administered on 11/12/18 08:39; Admin Dose 1 APPLIC; Start 11/10/18 at 10:00 Insulin Aspart (Novolog Insulin Pen) NOVOLOG *MILD* ALGORI... Q4 SC ; Start 11/11/18 at 01:00 Dextrose (D50w Syringe) 50 ml PRN PRN IV DECREASED GLUCOSE Last administered on 11/11/18 00:31; Admin Dose 50 ML; Start 11/11/18 at 00:30 Sodium Bicarbonate 75 meq/Dextrose/ Sodium Chloride 1,075 ml @ 50 mls/hr [id number] IV Last administered on 11/12/18 08:41; Admin Dose 50 MLS/HR; Start 11/11/18 at 06:00 Midodrine (Proamatine) 5 mg TID@,,17 NGT Last administered on 11/12/18 13:14; Admin Dose 5 MG; Start 11/12/18 at 09:24 STACIA ENRIQUE Nov 12, 2018 14:59
--- NOTE | 2018-11-12 17:04 | PN ---
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 Grace Subjective: Patient is resting in bed with continuous feeding in progress. KUB was negative for extravasation. Tube feeding has been restarted. Patient is currently receiving 60 cc/h with moderate residuals. Will start Reglan 10 mg every 6 hours. With no further recommendations GI will sign off and will be available to reconsult upon request. PHYSICAL EXAMINATION: GENERAL: Well developed, well nourished, trached, in no acute distress SKIN: No lesions, no stigmata chronic liver disease, no evidence of bleeding diathesis LYMPHATIC: No palpable lymphadenopathy. HEAD: Normocephalic, atraumatic, no tenderness. EYES: Pupils equal reactive to light and accommodation, full extraocular movements, sclera clear, non-icteric, no discharge. EARS/NOSE AND THROAT: Ears normal, nose normal, oropharynx normal, oral membranes well hydrated without lesions. NECK: Supple, no masses, thyroid normal, JVP within normal limits, carotids normal without bruits. CHEST: Inspection within normal limits. CARDIOVASCULAR: Heart: Regular rate and rhythm, no murmurs, gallops or rubs. P eripheral pulses present within normal limits, no cyanosis, clubbing or edemas. No pulsatile abdominal mass RESPIRATORY: Lungs clear to auscultation and percussion, no wheezing, no rubs GASTROINTESTINAL AND LIVER: Abdomen: Soft, G-tube in place, non tenderness, non- distended, no hernias, no masses, no organomegaly, no ascites, no guarding, no rebound tenderness, normoactive bowel sounds. Rectal: Deferred. GENITOURINARY: Male genitalia within normal limits. Mcintyre catheter in place EXTREMITIES: No cyanosis, clubbing or edema. Result Diagram: 11/12/18 0451 11/12/18 0350 Results 24hrs Laboratory Tests Test 11/11/18 20:53 11/12/18 01:44 11/12/18 03:50 11/12/18 04:45 Bedside Glucose 109 115 105 Sodium Level 148 H Potassium Level 4.0 Chloride Level 125 H Carbon Dioxide Level 15 L Anion Gap 8 Blood Urea Nitrogen 10 Creatinine 2.49 H Glucose Level 90 Calcium Level 7.4 L Phosphorus Level 2.5 Magnesium Level 1.9 Iron Level 38 Total Iron Binding 102 L Capacity Percent Iron Saturation 37 Albumin 1.9 L Test 11/12/18 04:51 11/12/18 08:37 11/12/18 13:12 White Blood Count 8.3 Red Blood Count 2.60 L Hemoglobin 7.3 L Hematocrit 23.5 L Mean Corpuscular Volume 90.4 Mean Corpuscular 28.1 L Hemoglobin Mean Corpuscular 31.1 L Hemoglobin Concent Red Cell Distribution 24.5 H Width Platelet Count 100 L Mean Platelet Volume 10.9 H Immature Granulocytes % 1.000 H Neutrophils % 51.7 Lymphocytes % 30.4 Monocytes % 13.5 H Eosinophils % 2.8 Basophils % 0.6 Nucleated Red Blood 0.2 H Cells % Immature Granulocytes # 0.080 H Neutrophils # 4.3 Lymphocytes # 2.5 Monocytes # 1.1 H Eosinophils # 0.2 Basophils # 0.1 Nucleated Red Blood 0.0 Cells # Bedside Glucose 111 98 CC: LEATHA GRACE MD ; Exam/Review of Systems Exam Vitals Vital Signs Date Temp Pulse Resp B/P (MAP) Pulse Ox O2 O2 Flow FiO2 Time Delivery Rate 11/12/18 74 26 114/66 100 16:30 (82) 11/12/18 98.0 Mechanical 16:00 Ventilator 11/12/18 30 15:30 Intake and Output 11/11/18 11/11/18 11/12/18 1515:00 23:00 07:00 IntakeIntake Total 1335.000 ml 1341.190 ml 1559.76 ml OutputOutput Total 220 ml 465 ml 280 ml BalanceBalance 1115.000 ml 876.190 ml 1279.76 ml Results Results 24hrs Laboratory Tests Test 11/11/18 20:53 11/12/18 01:44 11/12/18 03:50 11/12/18 04:45 Bedside Glucose 109 115 105 Sodium Level 148 H Potassium Level 4.0 Chloride Level 125 H Carbon Dioxide Level 15 L Anion Gap 8 Blood Urea Nitrogen 10 Creatinine 2.49 H Glucose Level 90 Calcium Level 7.4 L Phosphorus Level 2.5 Magnesium Level 1.9 Iron Level 38 Total Iron Binding 102 L Capacity Percent Iron Saturation 37 Albumin 1.9 L Test 11/12/18 04:51 11/12/18 08:37 11/12/18 13:12 White Blood Count 8.3 Red Blood Count 2.60 L Hemoglobin 7.3 L Hematocrit 23.5 L Mean Corpuscular Volume 90.4 Mean Corpuscular 28.1 L Hemoglobin Mean Corpuscular 31.1 L Hemoglobin Concent Red Cell Distribution 24.5 H Width Platelet Count 100 L Mean Platelet Volume 10.9 H Immature Granulocytes % 1.000 H Neutrophils % 51.7 Lymphocytes % 30.4 Monocytes % 13.5 H Eosinophils % 2.8 Basophils % 0.6 Nucleated Red Blood 0.2 H Cells % Immature Granulocytes # 0.080 H Neutrophils # 4.3 Lymphocytes # 2.5 Monocytes # 1.1 H Eosinophils # 0.2 Basophils # 0.1 Nucleated Red Blood 0.0 Cells # Bedside Glucose 111 98 Medications Medication Current Medications Ondansetron HCl (Zofran Inj) 4 mg Q6H PRN IV NAUSEA AND/OR VOMITING; Start 11/07/18 at 20:00 Albuterol (Ventolin Hfa) 4 puff Q2H RESP THERAPY PRN INH SHORTNESS OF BREATH; Start 11/07/18 at 20:00 Ipratropium [place] (Atrovent Hfa) 4 puff Q2H RESP THERAPY PRN INH SHORTNESS OF BREATH; Start 11/07/18 at 20:00 Vancomycin HCl (Vanco Iv Per Pharmacy) VANCOMYCIN PER PHARMACY PER PROTOCOL XX ; Start 11/07/18 at 22:30 Acetaminophen (Tylenol Liquid) 650 mg Q4H PRN GTB MILD PAIN LEVEL 1-3; Start 11/08/18 at 03:30 Ascorbic Acid (Vitamin C) 500 mg DAILY GTB Last administered on 11/12/18 08:39; Admin Dose 500 MG; Start 11/08/18 at 09:00 Epoetin Adrian-epbx (Retacrit (Esrd)) 8,000 unit [place]RI@1700 SC Last administered on 11/10/18 16:11; Admin Dose 8,000 UNIT; Start 11/08/18 at 17:00 Al Hydrox/Mg Hydrox/Simethicone (Mag-Al Plus) 30 ml Q4H PRN GTB GASTROINTESTINAL UPSET; Start 11/08/18 at 03:30 Magnesium Hydroxide (Milk Of Mag) 30 ml DAILY GTB Last administered on 11/08/18 09:59; Admin Dose 30 ML; Start 11/08/18 at 09:00 Sodium Biphosphate/ Sodium Phosphate (Fleet Enema) 133 ml DAILY PRN [place] CONSTIPATION; Start 11/08/18 at 03:30 Ondansetron HCl (Zofran Tab) 4 mg Q6H PRN GTB NAUSEA AND/OR VOMITING; Start 11/08/18 at 03:30 Eye Lubricant (Artificial Tears Oph) 1 drop TID BOTH EYES Last administered on 11/12/18 13:14; Admin Dose 1 DROP; Start 11/08/18 at 09:00 Tramadol HCl (Ultram) 50 mg BID PRN GTB PAIN; Start 11/08/18 at 03:30 Zinc Sulfate (Zinc Sulfate) 220 mg DAILY GTB Last administered on 11/12/18 08:39; Admin Dose 220 MG; Start 11/08/18 at 09:00 Amiodarone HCl (Cordarone) 200 mg DAILY GTB Last administered on 11/12/18 08:38; Admin Dose 200 MG; Start 11/08/18 at 09:00 Lactobacillus Acidophilus/ Rhamnosus (Culturelle) 1 cap BID GTB Last administered on 11/12/18 08:39; Admin Dose 1 CAP; Start 11/08/18 at 09:00 Lansoprazole (Prevacid) 30 mg DAILY@06 GTB Last administered on 11/12/18 06:22; Admin Dose 30 MG; Start 11/08/18 at 06:00 Norepinephrine 250 ml @ 1.875 mls/ hr TITRATE IV Last administered on 11/12/18 01:48; Admin Dose 3.72 MLS/HR; Start 11/08/18 at 11:00 Levothyroxine Sodium (Synthroid) 125 mcg BEFORE BREAKFAST GTB Last administered on 11/12/18 06:22; Admin Dose 125 MCG; Start 11/09/18 at 07:00 Heparin Sodium (Porcine) (Heparin (5000 Units/1ml)) 5,000 unit BID SC Last administered on 11/12/18 08:40; Admin Dose 5,000 UNIT; Start 11/08/18 at 21:00; Status Hold Vancomycin HCl 100 ml @ 100 mls/hr Q24H IVPB Last administered on 11/12/18 06:22; Admin Dose 100 MLS/HR; Start 11/09/18 at 07:00 Multivitamins (Multivitamin) 30 ml DAILY GTB Last administered on 11/12/18 08:38; Admin Dose 30 ML; Start 11/09/18 at 10:00 Caspofungin 50 mg/ Sodium Chloride 250 ml @ 250 mls/hr Q24H IVPB Last administered on 11/12/18 13:14; Admin Dose 250 MLS/HR; Start 11/10/18 at 13:00 Meropenem/Sodium Chloride 50 ml @ 100 mls/hr Q12 IVPB Last administered on 11/12/18 08:39; Admin Dose 100 MLS/HR; Start 11/09/18 at 21:00 Sodium Hypochlorite (Dakins Diluted (40)) 1 applic DAILY TP Last administered on 11/12/18 08:41; Admin Dose 1 APPLIC; Start 11/09/18 at 21:00 Collagenase (Santyl) This patient yen... DAILY TOP Last administered on 11/12/18 08:39; Admin Dose 1 APPLIC; Start 11/10/18 at 10:00 Insulin Aspart (Novolog Insulin Pen) NOVOLOG *MILD* ALGORI... Q4 SC ; Start 11/11/18 at 01:00 Dextrose (D50w Syringe) 50 ml PRN PRN IV DECREASED GLUCOSE Last administered on 11/11/18 00:31; Admin Dose 50 ML; Start 11/11/18 at 00:30 Sodium Bicarbonate 75 meq/Dextrose/ Sodium Chloride 1,075 ml @ 50 mls/hr [id number] IV Last administered on 8/2/19at 16:16; Admin Dose 50 MLS/HR; Start 11/11/18 at 06:00 Midodrine (Proamatine) 5 mg TID@,13,17 NGT Last administered on 11/12/18at 13:14; Admin Dose 5 MG; Start 11/12/18 at 09:24 STACEY WHIPPLE NP Nov 12, 2018 17:04
[2018-11-12] MEDS: METOCLOPRAMIDE 10 MG INJ IV SCH (17:34)
[2018-11-12] MEDS: EPOETIN ALFA-EPBX (ESRD) 4,000 UNIT/ML VIAL SC SCH (17:35)
[2018-11-13] VITALS (42 sets, daily range): BP systolic 77–147; BP diastolic 21–111; PULSE 67–96; RESP 14–32
[2018-11-13] MEDS: INSULIN ASPART [NOVOLOG] 3 ML PEN SC SCH ×6 (01:00→21:00)
[2018-11-13] MEDS: METOCLOPRAMIDE 10 MG INJ IV SCH ×4 (01:26→17:07)
[2018-11-13] MEDS: LANSOPRAZOLE 30 MG CAP GTB SCH (05:34)
[2018-11-13] MEDS: VANCOMYCIN 500 MG (PMX) 100 ML IVPB SCH (06:09)
[2018-11-13] MEDS: LEVOTHYROXINE 125 MCG TAB GTB SCH (06:09)
--- NOTE | 2018-11-13 07:51 | PN ---
DATE: 11/13/2018 SUBJECTIVE: The patient was weaned off pressor support. The patient remains on full ventilatory sup port. Urinary output has been adequate. No other acute events noted. OBJECTIVE: VITAL SIGNS: Blood pressure is 104/56, respirations 22, pulse 85, temperature 96.9. HEENT: Head is normocephalic. NECK: Supple. HEART: Regular rate. LUNGS: Show diminished breath sounds at the base. ABDOMEN: Soft, nontender to palpation without rebound or guarding. EXTREMITIES: Negative for clubbing, cyanosis. Positive edema. DERMATOLOGIC: No rashes. MUSCULOSKELETAL: No joint effusion. NEUROLOGIC: No change in exam. MEDICATIONS: Have been reviewed. LABORATORY DATA: Has been reviewed. IMAGING STUDIES: Have been reviewed. MICROBIOLOGY: Has been reviewed. ASSESSMENT AND PLAN: 1. Nonoliguric acute kidney injury with baseline creatinine 1.0 mg/dL. Etiology of acute kidney inj ury is secondary to acute tubular necrosis due to sepsis, shock. The patient appears to be entering recovery phase of acute tubular necrosis as renal function is slowly improving. At this point, allie bell current treatment plans, supportive care, renally dose all meds. 2. Volume overload. Etiology is multifactorial secondary to acute kidney injury, capillary leak. T he patient is currently off pressor support. Will start patient on IV diuretics, monitor electrolyte s, renal function closely. 3. Hypernatremia. Continue free water flushes. 4. Hypokalemia. Continue to monitor and replete. 5. Metabolic acidosis with respiratory alkalosis. The patient is currently on bicarbonate drip. Pl an is to discontinue bicarbonate drip. Followup EEG. 6. Anemia. Monitor hemoglobin and hematocrit levels. 7. Mineral bone disorder. Monitor calcium and phosphorus levels. 8. Sepsis, status post shock secondary to urinary tract infection. Continue antimicrobial, antifung al therapy, continue antibiotics. 9. Dysphagia, status post PEG. Continue tube feeding. 10. Acute on chronic encephalopathy. 11. History of brain tumor. 12. Gastrointestinal and deep venous thrombosis prophylaxis. Dictated By: ZAYDA GLASER/NTS Conf#: [id number] DID#: [id number] CC: CELINA HANCOCK MD;*EndCC*
[2018-11-13] MEDS: MULTIVITAMINS 30 ML CUP GTB SCH (08:17)
[2018-11-13] MEDS: FUROSEMIDE 40 MG INJ IV SCH (08:17)
[2018-11-13] MEDS: COLLAGENASE 5 GM (UD JAR) TOP SCH (08:17)
[2018-11-13] MEDS: MAGNESIUM HYDROXIDE 30ML CUP GTB SCH (08:17)
[2018-11-13] MEDS: ZINC SULFATE 220 MG CAP GTB SCH (08:18)
[2018-11-13] MEDS: ASCORBIC ACID 500 MG TAB GTB SCH (08:18)
[2018-11-13] MEDS: LACTOBACILLUS RHAMNOSUS CAP GTB SCH ×2 (08:18→20:10)
[2018-11-13] MEDS: ARTIFICIAL TEARS 15 ML OPH BOTH EYES SCH ×3 (08:18→20:10)
[2018-11-13] MEDS: MEROPENEM 500MG/50 ML (PMX) 50 ML IVPB SCH ×2 (08:18→20:10)
[2018-11-13] MEDS: AMIODARONE 200 MG TAB GTB SCH (08:18)
[2018-11-13] MEDS: BALSAM PERU/CASTOR OIL 60 GM TUBE TOP SCH (08:19)
[2018-11-13] MEDS: DAKINS 0.0125%(1/40) 473 ML SOLUTION TP SCH (08:19)
[2018-11-13] MEDS: MIDODRINE 5 MG TAB NGT SCH ×3 (08:28→17:07)
--- NOTE | 2018-11-13 08:52 | CONS ---
Assessment/Plan Assessment/Plan Assessment/Plan (Daily) Ventilator setting; AC of 12, tidal volume 450, PEEP of 0, 30% FiO2. Assessment and recommendations; 1. Patient with history of chronic encephalopathy and history of brain tumor admitted with pneumonia, Pseudomonas culture from sputum. Patient currently on appropriate antimicrobial regimen. 2. Prior history of DVT. 3. Paroxysmal atrial fibrillation. Currently in sinus rhythm. 4. Chronic renal insufficiency. 5. Anemia and severe thrombocytopenia. 6. Mild CHF. Continue current supportive care. Antibiotics per ID recommendations. Prognosis is very poor. Consultation Date/Type/Reason Admit Date/Time Nov 07, 2018 at 18:54 Initial Consult Date 11/08/18 Type of Consult Pulmonary/critical care Patient is an 83-year-old male with a history of chronic respiratory failure which is ventilator dependent admitted for sepsis. Patient has been adequately fluid resuscitated and started on appropriate antimicrobial regimen. Patient still remains hypotensive requiring Levophed. Patient does have history of advanced dementia and was unable to give any history by himself whatsoever. Patient however did not appear to be in any distress. Past medical history; 1. History of dementia with a history of brain tumor. 2. VDRF. 3. History of tracheostomy and G-tube placement. 4. History of DVT. 5. History of paroxysmal atrial fibrillation. 6. History of hypothyroidism. Medications; reviewed. Allergies; none. Social history, family history, occupational histories are not available. Review of system; unable to be obtained. General exam; elderly male, on ventilator via tracheostomy, awake but noncommunicative. Currently in no distress. Requesting Provider: KYLE SEVERINO Date/Time of Note DATE: 11/13/18 TIME: 08:49 24 HR Interval Summary Free Text/Dictation Patient's condition remains critical. Patient however has improved hemodynamically and is off Levophed. General exam; elderly male, unresponsive, currently in no distress. On ventilator via tracheostomy. Exam/Review of Systems Exam Vitals Vital Signs Date Temp Pulse Resp B/P (MAP) Pulse Ox O2 O2 Flow FiO2 Time Delivery Rate 11/13/18 75 08:00 11/13/18 97.0 21 97/52 (67) 100 Mechanical 07:00 Ventilator 11/13/18 30 05:35 Intake and Output 11/12/18 11/12/18 11/13/18 1414:59 22:59 06:59 IntakeIntake Total 1835.97 ml 979.15 ml 1230 ml OutputOutput Total 1400 ml 725 ml 665 ml BalanceBalance 435.97 ml 254.15 ml 565 ml Exam H ENT exam; supple neck, no JVD. No lymphadenopathy. Midline trachea. No thyromegaly. Tracheostomy in place. Patient does have multiple carious teeth. Chest exam; diminished but clear breath sounds. S1-S2 audible, no murmurs. Regular rhythm. Abdomen exam; soft, no organomegaly. G-tube in place. Bowel sounds audible. Extremity exam; trace peripheral edema with multiple skin wounds. MATERIAL LIAISON exam; patient remains unresponsive. Results Result Diagram: 11/13/18 0400 11/13/18 0400 Results 24hrs Laboratory Tests Test 11/12/18 13:12 11/12/18 17:33 11/12/18 20:37 11/13/18 01:27 Bedside Glucose 98 99 83 104 Test 11/13/18 04:00 11/13/18 04:10 11/13/18 07:00 11/13/18 08:31 White Blood Count 8.7 Red Blood Count 2.64 L Hemoglobin 7.3 L Hematocrit 23.4 L Mean Corpuscular 88.6 Volume Mean Corpuscular 27.7 L Hemoglobin Mean Corpuscular 31.2 L Hemoglobin Concent Red Cell 24.5 H Distribution Width Platelet Count 75 #L Mean Platelet 11.7 H Volume Immature 1.000 H Granulocytes % Neutrophils % 47.2 Lymphocytes % 33.2 Monocytes % 13.8 H Eosinophils % 4.3 Basophils % 0.5 Nucleated Red 0.3 H Blood Cells % Immature 0.090 H Granulocytes # Neutrophils # 4.1 Lymphocytes # 2.9 Monocytes # 1.2 H Eosinophils # 0.4 Basophils # 0.0 Nucleated Red 0.0 Blood Cells # Sodium Level 146 H Potassium Level 3.7 Chloride Level 124 H Carbon Dioxide 17 L Level Anion Gap 5 Blood Urea 10 Nitrogen Creatinine 2.32 H Est Glomerular Filtrat Rate mL/min Glucose Level 77 Calcium Level 7.4 L Phosphorus Level 2.6 Magnesium Level 1.8 Bedside Glucose 84 74 Blood Gas Specimen Blood arterial Source Arterial Blood 11/13/2018 8:05:25 Date Drawn AM Arterial Blood pH 7.402 (Temp corrected) Arterial Blood 25.5 L pCO2 (Temp correct) Arterial Blood pO2 125.6 H (Temp corrected) Arterial Blood 15.5 L HCO3 Arterial Blood -8.2 L Base Excess Arterial Blood 98.6 Oxygen Saturation Jeff Test ACCEPTAB Arterial Blood Gas Right Radial Puncture Site Arterial 1.4 Blood Carboxyhemog lobin Arterial Blood 0.3 Methemoglobin Blood Gas A-a O2 58.3 H Differential Oxyhemoglobin 96.9 Percent Blood Gas 37.0 Temperature Blood Gas 12.0 Respiration Rate Blood Gas Actual 22 Respiration Rate Blood Gas Modality VENT - AC FiO2 30.0 Blood Gas Tidal 450.0 Volume Blood Gas Low PEEP 0 Setting Blood Gas Notified CW Whom Blood Gas Notified 11/13/2018 8:35:53 Time AM Medications Medication Current Medications Ondansetron HCl (Zofran Inj) 4 mg Q6H PRN IV NAUSEA AND/OR VOMITING; Start 11/07/18 at 20:00 Albuterol (Ventolin Hfa) 4 puff Q2H RESP THERAPY PRN INH SHORTNESS OF BREATH; Start 11/07/18 at 20:00 Ipratropium [place] (Atrovent Hfa) 4 puff Q2H RESP THERAPY PRN INH SHORTNESS OF BREATH; Start 11/07/18 at 20:00 Vancomycin HCl (Vanco Iv Per Pharmacy) VANCOMYCIN PER PHARMACY PER PROTOCOL XX ; Start 11/07/18 at 22:30 Acetaminophen (Tylenol Liquid) 650 mg Q4H PRN GTB MILD PAIN LEVEL 1-3; Start 11/08/18 at 03:30 Ascorbic Acid (Vitamin C) 500 mg DAILY GTB Last administered on 11/13/18at 08:18; Admin Dose 500 MG; Start 11/08/18 at 09:00 Epoetin Adrian-epbx (Retacrit (Esrd)) 8,000 unit MONWEDFRI@1700 SC Last administered on 11/12/18at 17:35; Admin Dose 8,000 UNIT; Start 11/08/18 at 17:00 Al Hydrox/Mg Hydrox/Simethicone (Mag-Al Plus) 30 ml Q4H PRN GTB GASTROINTESTINAL UPSET; Start 11/08/18 at 03:30 Magnesium Hydroxide (Milk Of Mag) 30 ml DAILY GTB Last administered on 11/13/18at 08:17; Admin Dose 30 ML; Start 11/08/18 at 09:00 Sodium Biphosphate/ Sodium Phosphate (Fleet Enema) 133 ml DAILY PRN [place] CONSTI PATION; Start 11/08/18 at 03:30 Ondansetron HCl (Zofran Tab) 4 mg Q6H PRN GTB NAUSEA AND/OR VOMITING; Start 11/08/18 at 03:30 Eye Lubricant (Artificial Tears Oph) 1 drop TID BOTH EYES Last administered on 11/13/18 08:18; Admin Dose 1 DROP; Start 11/08/18 at 09:00 Tramadol HCl (Ultram) 50 mg BID PRN GTB PAIN; Start 11/08/18 at 03:30 Zinc Sulfate (Zinc Sulfate) 220 mg DAILY GTB Last administered on 11/13/18 08:18; Admin Dose 220 MG; Start 11/08/18 at 09:00 Amiodarone HCl (Cordarone) 200 mg DAILY GTB Last administered on 11/13/18 08:18; Admin Dose 200 MG; Start 11/08/18 at 09:00 Lactobacillus Acidophilus/ Rhamnosus (Culturelle) 1 cap BID GTB Last administered on 11/13/18 08:18; Admin Dose 1 CAP; Start 11/08/18 at 09:00 Lansoprazole (Prevacid) 30 mg DAILY@06 GTB Last administered on 11/13/18 05:34; Admin Dose 30 MG; Start 11/08/18 at 06:00 Norepinephrine 250 ml @ 1.875 mls/ hr TITRATE IV Last administered on 11/12/18 01:48; Admin Dose 3.72 MLS/HR; Start 11/08/18 at 11:00 Levothyroxine Sodium (Synthroid) 125 mcg BEFORE BREAKFAST GTB Last administered on 11/13/18 06:09; Admin Dose 125 MCG; Start 11/09/18 at 07:00 Heparin Sodium (Porcine) (Heparin (5000 Units/1ml)) 5,000 unit BID SC Last administered on 11/12/18 08:40; Admin Dose 5,000 UNIT; Start 11/08/18 at 21:00; Status Hold Vancomycin HCl 100 ml @ 100 mls/hr Q24H IVPB Last administered on 11/13/18 06:09; Admin Dose 100 MLS/HR; Start 11/09/18 at 07:00 Multivitamins (Multivitamin) 30 ml DAILY GTB Last administered on 11/13/18 08:17; Admin Dose 30 ML; Start 11/09/18 at 10:00 Caspofungin 50 mg/ Sodium Chloride 250 ml @ 250 mls/hr Q24H IVPB Last administered on 11/12/18 13:14; Admin Dose 250 MLS/HR; Start 11/10/18 at 13:00 Meropenem/Sodium Chloride 50 ml @ 100 mls/hr Q12 IVPB Last administered on 11/13/18 08:18; Admin Dose 100 MLS/HR; Start 11/09/18 at 21:00 Sodium Hypochlorite (Dakins Diluted ()) 1 applic DAILY TP Last administered on 11/13/18 08:19; Admin Dose 1 APPLIC; Start 11/09/18 at 21:00 Collagenase (Santyl) This patient yen... DAILY TOP Last administered on 11/13/18 08:17; Admin Dose 1 APPLIC; Start 11/10/18 at 10:00 Insulin Aspart (Novolog Insulin Pen) NOVOLOG *MILD* ALGORI... Q4 SC ; Start 11/11/18 at 01:00 Dextrose (D50w Syringe) 50 ml PRN PRN IV DECREASED GLUCOSE Last administered on 11/11/18 00:31; Admin Dose 50 ML; Start 11/11/18 at 00:30 Midodrine (Proamatine) 5 mg TID@,13,17 NGT Last administered on 11/13/18 08:28; Admin Dose 5 MG; Start 11/12/18 at 09:24 Metoclopramide HCl (Reglan) 5 mg Q6 IV Last administered on 11/13/18 05:34; Admin Dose 5 MG; Start 11/12/18 at 18:00 Furosemide (Lasix) 40 mg DAILY IV Last administered on 11/13/18 08:17; Admin Dose 40 MG; Start 11/13/18 at 09:00 SADI BERGER Nov 13, 2018 08:51
--- NOTE | 2018-11-13 10:04 | PN ---
Date/Time of Note Date/Time of Note DATE: 11/13/18 TIME: 10:01 Assessment/Plan VTE Prophylaxis Risk score (from Ns)>0 risk: 15 SCD applied (from Ns): Yes Pharmacological prophylaxis: NA/contraindicated Pharm contraindication: thrombocytopenia Lines/Catheters IV Catheter Type (from Nrsg): Central Line Central line still needed: Yes Urinary Cath still in place: Yes Reason Cath still needed: terminal illness/intractable pain Assessment/Plan Assessment/Plan Assessment and plan: 82-year-old male chronically encephalopathic from records, it seems this was secondary to prior brain tumor status post craniotomy and partial resection also with volume loss and chronic subdural collection who is ventilator dependent and on tube feeds and [facility] and was sent to us for altered mentation and hypotension. The patient is also said to have had a CVA in the past. Is currently managed as follows: 1. Severe sepsis with shock thought to be secondary to bilateral pneumonia and UTI -Urine cultures growing Wandy -Endotracheal cultures growing pesudomonas and K Penumo esbl -Id managing abx 2. Septic shock -off levophed for 24hrs. 3. Acute renal insufficiency with associated metabolic acidosis -Per nephrology, baseline creatinine is actually 1.0. Was on bicarb gtt, now off. 4. Paroxysmal atrial fibrillation currently rate controlled -Patient having episodes of arrhythmia and mild bradycardia -Patient on amiodarone for tachycardia, cardiology is not actually on the case, however heart rate is stable now, continue monitoring -Keep mag greater than 2.0 and potassium greater than 4 -Cardiology consult if indicated 5. Recent C. difficile colitis as well as DVT, September 2018 -Patient is not on aggressive DVT treatment due to recent craniotomy, but has been cleared for DVT prophylaxis by neurology -We will have family contact surgeon who did the original surgery to see if we can treat DVT at this time 6. Chronic ventilator dependent respiratory failure status post trach -Continue ventilator management 7. Hx of bran tumor s/p craniotomy about 3 months ago and prev CVA with chronic encephalopathy -family has noted minimal improvements in the last 3months, patient is moving LUE a bit and opens eyes spontaneously -Family has been updated that patient is likely never going to have significant recovery 8. Chronic neurogenic dysphagia on tube feedings -Nursing had verbalized concern for G-tube leakage, GI consult obtained, appreciate input -Patient plan for KUB to evaluate G-tube placement 9. Chronic cardiomyopathy with last known EF of 35% 10 Poorly controlled hypothyroidism -continue Synthroid. 11. Chronic hypochromic anemia -Transfused 1 unit of packed red cells so far this admission, hemoglobin dropped again to 7.3 12. Thrombocytopenia -Likely consumptive, No evidence of bleeding at this time, hold heparin Plan: -Transfer to telemetry -Continue antibiotics per ID - Maintain MAP>60. -Continue IV fluid hydration and free water flushes per nephrology -Continue serial lab monitoring and close electrolyte management -Further interventions per clinical course November 11, 2018: Had an extensive discussion with the patient's daughter, bedside nurse, social insurance adviser, and patient's son via telephone. Patient's son was not receptive to any discussion about palliative care. Patient's daughter verbalized frustration and understanding that her father was suffering, but was frustrated at her brother's refusal to see it. She became tearful multiple times during the conversation. I also explained extensively the futility of further medical care. Patient's daughter verbalized understanding, but patient's son was adamant about not wanting to discuss anything pertaining to possible palliative care. Patient's is the legal decision maker, however per patient's daughter, she defers to her son. At this point I think bioethics consultation is warranted, to assist the family and myself in determining how to proceed further. It is my medical opinion that further aggressive care in this patient is futile. It will not prolong patient's life, it will not improve his quality of life. Patient is fully appropriate for comfort measures and patient is visibly suffering. However in the interim, in keeping with patient's family wishes, we will continue current care as defined above. Care time today: Greater than 40 minutes. Result Diagram: 11/13/18 0400 11/13/18 0400 Subjective 24 Hr Interval Summary Free Text/Dictation No acute overnight events. Patient off levophed for 24 hrs. Exam/Review of Systems Exam Vitals Vital Signs Date Temp Pulse Resp B/P (MAP) Pulse Ox O2 O2 Flow FiO2 Time Delivery Rate 11/13/18 73 18 91/59 (70) 100 Mechanical 09:00 Ventilator 11/13/18 30 08:00 11/13/18 97.0 07:00 Intake and Output 11/12/18 11/12/18 11/13/18 1515:00 23:00 07:00 IntakeIntake Total 1807.25 ml 979.15 ml 1280 ml OutputOutput Total 1400 ml 735 ml 660 ml BalanceBalance 407.25 ml 244.15 ml 620 ml Exam Constitutional: non-verbal, other (cachetic , elderly, Patient unresponsive, not following commands or tracking), Obtunded Eyes occasionally open spontaneously, No oriented Head: normocephalic, atraumatic Eyes: PERRL, No icteric ENMT: trach to vent No mucosa pink and moist (dry), mouth open Respiratory: diminished breath sounds, No labored breathing Cardiovascular: regular rate and rhythm, No murmurs/extra sounds Gastrointestinal: soft, non-tender, bowel sounds, other (PEG tube noted with no cellulitis or discharge) Genitourinary - male: nl external genitalia, lugo Extremities: R side: Chronically contracted on the R paresis minimal L foot withdrawal with stimulation Neurological: altered, eyes opening spontaneously but no tracking or following commands), No nl mental status, No nl speech, No nl strength Results Results 24hrs Laboratory Tests Test 11/12/18 13:12 11/12/18 17:33 11/12/18 20:37 11/13/18 01:27 Bedside Glucose 98 99 83 104 Test 11/13/18 04:00 11/13/18 04:10 11/13/18 07:00 11/13/18 08:31 White Blood Count 8.7 Red Blood Count 2.64 L Hemoglobin 7.3 L Hematocrit 23.4 L Mean Corpuscular 88.6 Volume Mean Corpuscular 27.7 L Hemoglobin Mean Corpuscular 31.2 L Hemoglobin Concent Red Cell 24.5 H Distribution Width Platelet Count 75 #L Mean Platelet 11.7 H Volume Immature 1.000 H Granulocytes % Neutrophils % 47.2 Lymphocytes % 33.2 Monocytes % 13.8 H Eosinophils % 4.3 Basophils % 0.5 Nucleated Red 0.3 H Blood Cells % Immature 0.090 H Granulocytes # Neutrophils # 4.1 Lymphocytes # 2.9 Monocytes # 1.2 H Eosinophils # 0.4 Basophils # 0.0 Nucleated Red 0.0 Blood Cells # Sodium Level 146 H Potassium Level 3.7 Chloride Level 124 H Carbon Dioxide 17 L Level Anion Gap 5 Blood Urea 10 Nitrogen Creatinine 2.32 H Est Glomerular Filtrat Rate mL/min Glucose Level 77 Calcium Level 7.4 L Phosphorus Level 2.6 Magnesium Level 1.8 Bedside Glucose 84 74 Blood Gas Specimen Blood arterial Source Arterial Blood 11/13/2018 8:05:25 Date Drawn AM Arterial Blood pH 7.402 (Temp corrected) Arterial Blood 25.5 L pCO2 (Temp correct) Arterial Blood pO2 125.6 H (Temp corrected) Arterial Blood 15.5 L HCO3 Arterial Blood -8.2 L Base Excess Arterial Blood 98.6 Oxygen Saturation Jeff Test ACCEPTAB Arterial Blood Gas Right Radial Puncture Site Arterial 1.4 Blood Carboxyhemog lobin Arterial Blood 0.3 Methemoglobin Blood Gas A-a O2 58.3 H Differential Oxyhemoglobin 96.9 Percent Blood Gas 37.0 Temperature Blood Gas 12.0 Respiration Rate Blood Gas Actual 22 Respiration Rate Blood Gas Modality VENT - AC FiO2 30.0 Blood Gas Tidal 450.0 Volume Blood Gas Low PEEP 0 Setting Blood Gas Notified CW Whom Blood Gas Notified 11/13/2018 8:35:53 Time AM Medications Medication Current Medications Ondansetron HCl (Zofran Inj) 4 mg Q6H PRN IV NAUSEA AND/OR VOMITING; Start 11/07/18 at 20:00 Albuterol (Ventolin Hfa) 4 puff Q2H RESP THERAPY PRN INH SHORTNESS OF BREATH; Start 11/07/18 at 20:00 Ipratropium [place] (Atrovent Hfa) 4 puff Q2H RESP THERAPY PRN INH SHORTNESS OF BREATH; Start 11/07/18 at 20:00 Vancomycin HCl (Vanco Iv Per Pharmacy) VANCOMYCIN PER PHARMACY PER PROTOCOL XX ; Start 11/07/18 at 22:30 Acetaminophen (Tylenol Liquid) 650 mg Q4H PRN GTB MILD PAIN LEVEL 1-3; Start 11/08/18 at 03:30 Ascorbic Acid (Vitamin C) 500 mg DAILY GTB Last administered on 11/13/18at 08:18; Admin Dose 500 MG; Start 11/08/18 at 09:00 Epoetin Adrian-epbx (Retacrit (Esrd)) 8,000 unit MONWEDFRI@1700 SC Last administered on 11/12/18at 17:35; Admin Dose 8,000 UNIT; Start 11/08/18 at 17:00 Al Hydrox/Mg Hydrox/Simethicone (Mag-Al Plus) 30 ml Q4H PRN GTB GASTROINTESTINAL UPSET; Start 11/08/18 at 03:30 Magnesium Hydroxide (Milk Of Mag) 30 ml DAILY GTB Last administered on 11/13/18 08:17; Admin Dose 30 ML; Start 11/08/18 at 09:00 Sodium Biphosphate/ Sodium Phosphate (Fleet Enema) 133 ml DAILY PRN [place] CONSTIPATION; Start 11/08/18 at 03:30 Ondansetron HCl (Zofran Tab) 4 mg Q6H PRN GTB NAUSEA AND/OR VOMITING; Start 11/08/18 at 03:30 Eye Lubricant (Artificial Tears Oph) 1 drop TID BOTH EYES Last administered on 11/13/18 08:18; Admin Dose 1 DROP; Start 11/08/18 at 09:00 Tramadol HCl (Ultram) 50 mg BID PRN GTB PAIN; Start 11/08/18 at 03:30 Zinc Sulfate (Zinc Sulfate) 220 mg DAILY GTB Last administered on 11/13/18 08:18; Admin Dose 220 MG; Start 11/08/18 at 09:00 Amiodarone HCl (Cordarone) 200 mg DAILY GTB Last administered on 11/13/18 08:18; Admin Dose 200 MG; Start 11/08/18 at 09:00 Lactobacillus Acidophilus/ Rhamnosus (Culturelle) 1 cap BID GTB Last administered on 11/13/18 08:18; Admin Dose 1 CAP; Start 11/08/18 at 09:00 Lansoprazole (Prevacid) 30 mg DAILY@06 GTB Last administered on 11/13/18 05:34; Admin Dose 30 MG; Start 11/08/18 at 06:00 Norepinephrine 250 ml @ 1.875 mls/ hr TITRATE IV Last administered on 11/12/18 01:48; Admin Dose 3.72 MLS/HR; Start 11/08/18 at 11:00 Levothyroxine Sodium (Synthroid) 125 mcg BEFORE BREAKFAST GTB Last administered on 11/13/18 06:09; Admin Dose 125 MCG; Start 11/09/18 at 07:00 Heparin Sodium (Porcine) (Heparin (5000 Units/1ml)) 5,000 unit BID SC Last administered on 11/12/18 08:40; Admin Dose 5,000 UNIT; Start 11/08/18 at 21:00; Status Hold Vancomycin HCl 100 ml @ 100 mls/hr Q24H IVPB Last administered on 11/13/18 06:09; Admin Dose 100 MLS/HR; Start 11/09/18 at 07:00 Multivitamins (Multivitamin) 30 ml DAILY GTB Last administered on 11/13/18 08:17; Admin Dose 30 ML; Start 11/09/18 at 10:00 Caspofungin 50 mg/ Sodium Chloride 250 ml @ 250 mls/hr Q24H IVPB Last administered on 11/12/18 13:14; Admin Dose 250 MLS/HR; Start 11/10/18 at 13:00 Meropenem/Sodium Chloride 50 ml @ 100 mls/hr Q12 IVPB Last administered on 11/13/18 08:18; Admin Dose 100 MLS/HR; Start 11/09/18 at 21:00 Sodium Hypochlorite (Dakins Diluted (40)) 1 applic DAILY TP Last administered on 11/13/18 08:19; Admin Dose 1 APPLIC; Start 11/09/18 at 21:00 Collagenase (Santyl) This patient yen... DAILY TOP Last administered on 11/13/18 08:17; Admin Dose 1 APPLIC; Start 11/10/18 at 10:00 Insulin Aspart (Novolog Insulin Pen) NOVOLOG *MILD* ALGORI... Q4 SC ; Start 11/11/18 at 01:00 Dextrose (D50w Syringe) 50 ml PRN PRN IV DECREASED GLUCOSE Last administered on 11/11/18 00:31; Admin Dose 50 ML; Start 11/11/18 at 00:30 Midodrine (Proamatine) 5 mg TID@,13,17 NGT Last administered on 11/13/18 08:28; Admin Dose 5 MG; Start 11/12/18 at 09:24 Metoclopramide HCl (Reglan) 5 mg Q6 IV Last administered on 11/13/18 05:34; Admin Dose 5 MG; Start 11/12/18 at 18:00 Furosemide (Lasix) 40 mg DAILY IV Last administered on 11/13/18 08:17; Admin Dose 40 MG; Start 11/13/18 at 09:00 EVA BURGESS MD Nov 13, 2018 10:04
--- NOTE | 2018-11-13 12:19 | CONS ---
Assessment/Plan Assessment/Plan Hospital Course (Demo Recall) ID PROGRESS NOTE CURRENT ABX: DAY #6 =>Vanco IV + Merrem + Cancidas 11/13/18 0400 11/13/18 0400 24H INTERVAL SUMMARY * Elderly M, VSS, NAD on the Vent -- noncommunicative * Weaned OFF PRESSORS * INDWELLINGS: Trach, PEG, Mcintyre, left subclavian triple-lumen catheter. DIAGNOSTIC IMAGING * 11/11/18 ABD XR: Nonobstructive bowel gas pattern. Injection of contrast into a percutaneous feeding tube results in opacification of a left-sided bowel loop without contrast extravasation. * 11/10/2018 CXR: Findings suggesting the presence of mild pulmonary edema, similar to the prior day. Lines and tubes are stable. Aortic atherosclerotic calcification. MICRO * 11/09/18 TRACH CX: RESPIRATORY CULTURE Final Organism 1 K PNEUMO ESBL QUANTITY SCANT GROWTH . MULTI DRUG RESISTANT ORGANISM Organism 2 PSEUDOMONAS AERUGINOSA QUANTITY SCANT GROWTH * 11/08/18 URINE CX (+) URINE CULTURE Final Organism 1 YARELIS ALBICANS COLONY COUNT >100,000 CFU/ml * 11/08/18 BCX (-) * 11/08/18 RESP CX: RESPIRATORY CULTURE Final Organism 1 PSEUDOMONAS AERUGINOSA QUANTITY 1+ Organism 2 K PNEUMO ESBL QUANTITY SCANT GROWTH . MULTI DRUG RESISTANT ORGANISM P.AERUG KLEB PNEUM KLEB PNEUM M.I.C. RX M.I.C. RX M.I.C. RX --------- --- --------- --- --------- --- AMIKACIN <=2 S 4 S AZTREONAM S CEFAZOLIN R CEFEPIME 2 S 2 S CEFOTAXIME R CEFTAZIDIME 4 S CIPROFLOXACIN <=0.25 S 2 I GENTAMICIN <=1 S >=16 R LEVOFLOXACIN 1 S 1 S MEROPENEM 0.006 S TOBRAMYCIN <=1 S >=16 R TRIMETHOPRIM/SULFAMETHOXAZOLE >=320 R PIPERACILLIN/TAZOBACTAM 16 S 32 I PHYSICAL EXAMINATION: GENERAL: VSS, NAD HEENT: AT, NC, Trach secure NECK: Supple, CHEST: Rise symmetrical - vented HEART: Pulse RRR ABDOMEN: Peg EXTREMITIES: Warm, dry SKIN: No rash, no diaphoresis ID ASSESSMENT 83 yo M admit with: 1. Severe sepsis with shock. 2. Urinary tract infection. 3. Healthcare-associated pneumonia. 4. Acute renal failure. 5. Left kidney lesion of unclear significance. 6. Atrial fibrillation. 7. History of brain tumor, status post craniotomy. 8. History of deep venous thrombosis. 9. Chronic respiratory failure (-) MRSA Nares ABX ALLERGIES: KNDA INVASIVES: Trach, PEG, Mcintyre, left subclavian triple-lumen catheter. CURRENT ABX: DAY # 6 =>Vanco IV + Merrem + Cancidas ID RECOMMENDATIONS/PLAN: 1. DC Vanco IV 2. Continue Merrem + Cancidas over the weekend 3. Per network consultant notes: Poor prognosis . Consultation Date/Type/Reason Admit Date/Time Nov 07, 2018 at 18:54 Initial Consult Date 11/11/18 Requesting Provider: KYEL SEVERINO Date/Time of Note DATE: 11/13/18 TIME: 12:08 Exam/Review of Systems Exam Vitals Vital Signs Date Temp Pulse Resp B/P (MAP) Pulse Ox O2 O2 Flow FiO2 Time Delivery Rate 11/13/18 97.2 74 25 82/52 (62) 100 Mechanical 12:00 Ventilator 11/13/18 30 08:00 Intake and Output 11/12/18 11/12/18 11/13/18 1515:00 23:00 07:00 IntakeIntake Total 1807.25 ml 979.15 ml 1280 ml OutputOutput Total 1400 ml 735 ml 660 ml BalanceBalance 407.25 ml 244.15 ml 620 ml Results Result Diagram: 11/13/18 0400 11/13/18 0400 Results 24hrs Laboratory Tests Test 11/12/18 13:12 11/12/18 17:33 11/12/18 20:37 11/13/18 01:27 Bedside Glucose 98 99 83 104 Test 11/13/18 04:00 8/3/19 04:10 11/13/18 07:00 11/13/18 08:31 White Blood Count 8.7 Red Blood Count 2.64 L Hemoglobin 7.3 L Hematocrit 23.4 L Mean Corpuscular 88.6 Volume Mean Corpuscular 27.7 L Hemoglobin Mean Corpuscular 31.2 L Hemoglobin Concent Red Cell 24.5 H Distribution Width Platelet Count 75 #L Mean Platelet 11.7 H Volume Immature 1.000 H Granulocytes % Neutrophils % 47.2 Lymphocytes % 33.2 Monocytes % 13.8 H Eosinophils % 4.3 Basophils % 0.5 Nucleated Red 0.3 H Blood Cells % Immature 0.090 H Granulocytes # Neutrophils # 4.1 Lymphocytes # 2.9 Monocytes # 1.2 H Eosinophils # 0.4 Basophils # 0.0 Nucleated Red 0.0 Blood Cells # Sodium Level 146 H Potassium Level 3.7 Chloride Level 124 H Carbon Dioxide 17 L Level Anion Gap 5 Blood Urea 10 Nitrogen Creatinine 2.32 H Est Glomerular Filtrat Rate mL/min Glucose Level 77 Calcium Level 7.4 L Phosphorus Level 2.6 Magnesium Level 1.8 Bedside Glucose 84 74 Blood Gas Specimen Blood arterial Source Arterial Blood 11/13/2018 8:05:25 Date Drawn AM Arterial Blood pH 7.402 (Temp corrected) Arterial Blood 25.5 L pCO2 (Temp correct) Arterial Blood pO2 125.6 H (Temp corrected) Arterial Blood 15.5 L HCO3 Arterial Blood -8.2 L Base Excess Arterial Blood 98.6 Oxygen Saturation Jeff Test ACCEPTAB Arterial Blood Gas Right Radial Puncture Site Arterial 1.4 Blood Carboxyhemog lobin Arterial Blood 0.3 Methemoglobin Blood Gas A-a O2 58.3 H Differential Oxyhemoglobin 96.9 Percent Blood Gas 37.0 Temperature Blood Gas 12.0 Respiration Rate Blood Gas Actual 22 Respiration Rate Blood Gas Modality VENT - AC FiO2 30.0 Blood Gas Tidal 450.0 Volume Blood Gas Low PEEP 0 Setting Blood Gas Notified CW Whom Blood Gas Notified 11/13/2018 8:35:53 Time AM Medications Medication Current Medications Ondansetron HCl (Zofran Inj) 4 mg Q6H PRN IV NAUSEA AND/OR VOMITING; Start 11/07/18 at 20:00 Albuterol (Ventolin Hfa) 4 puff Q2H RESP THERAPY PRN INH SHORTNESS OF BREATH; Start 11/07/18 at 20:00 Ipratropium [place] (Atrovent Hfa) 4 puff Q2H RESP THERAPY PRN INH SHORTNESS OF BREATH; Start 11/07/18 at 20:00 Vancomycin HCl (Vanco Iv Per Pharmacy) VANCOMYCIN PER PHARMACY PER PROTOCOL XX ; Start 11/07/18 at 22:30 Acetaminophen (Tylenol Liquid) 650 mg Q4H PRN GTB MILD PAIN LEVEL 1-3; Start 11/08/18 at 03:30 Ascorbic Acid (Vitamin C) 500 mg DAILY GTB Last administered on 11/13/18 08:18; Admin Dose 500 MG; Start 11/08/18 at 09:00 Epoetin Adrian-epbx (Retacrit (Esrd)) 8,000 unit MONWEDFRI@1700 SC Last administered on 11/12/18 17:35; Admin Dose 8,000 UNIT; Start 11/08/18 at 17:00 Al Hydrox/Mg Hydrox/Simethicone (Mag-Al Plus) 30 ml Q4H PRN GTB GASTROINTESTINAL UPSET; Start 11/08/18 at 03:30 Magnesium Hydroxide (Milk Of Mag) 30 ml DAILY GTB Last administered on 11/13/18 08:17; Admin Dose 30 ML; Start 11/08/18 at 09:00 Sodium Biphosphate/ Sodium Phosphate (Fleet Enema) 133 ml DAILY PRN [place] CONST IPATION; Start 11/08/18 at 03:30 Ondansetron HCl (Zofran Tab) 4 mg Q6H PRN GTB NAUSEA AND/OR VOMITING; Start 11/08/18 at 03:30 Eye Lubricant (Artificial Tears Oph) 1 drop TID BOTH EYES Last administered on 11/13/18at 08:18; Admin Dose 1 DROP; Start 11/08/18 at 09:00 Tramadol HCl (Ultram) 50 mg BID PRN GTB PAIN; Start 11/08/18 at 03:30 Zinc Sulfate (Zinc Sulfate) 220 mg DAILY GTB Last administered on 11/13/18 08:18; Admin Dose 220 MG; Start 11/08/18 at 09:00 Amiodarone HCl (Cordarone) 200 mg DAILY GTB Last administered on 11/13/18 08:18; Admin Dose 200 MG; Start 11/08/18 at 09:00 Lactobacillus Acidophilus/ Rhamnosus (Culturelle) 1 cap BID GTB Last administered on 11/13/18 08:18; Admin Dose 1 CAP; Start 11/08/18 at 09:00 Lansoprazole (Prevacid) 30 mg DAILY@06 GTB Last administered on 11/13/18 05:34; Admin Dose 30 MG; Start 11/08/18 at 06:00 Levothyroxine Sodium (Synthroid) 125 mcg BEFORE BREAKFAST GTB Last administered on 11/13/18 06:09; Admin Dose 125 MCG; Start 11/09/18 at 07:00 Heparin Sodium (Porcine) (Heparin (5000 Units/1ml)) 5,000 unit BID SC Last administered on 11/12/18 08:40; Admin Dose 5,000 UNIT; Start 11/08/18 at 21:00; Status Hold Vancomycin HCl 100 ml @ 100 mls/hr Q24H IVPB Last administered on 11/13/18 06:09; Admin Dose 100 MLS/HR; Start 11/09/18 at 07:00 Multivitamins (Multivitamin) 30 ml DAILY GTB Last administered on 11/13/18 08:17; Admin Dose 30 ML; Start 11/09/18 at 10:00 Caspofungin 50 mg/ Sodium Chloride 250 ml @ 250 mls/hr Q24H IVPB Last a dministered on 11/12/18 13:14; Admin Dose 250 MLS/HR; Start 11/10/18 at 13:00 Meropenem/Sodium Chloride 50 ml @ 100 mls/hr Q12 IVPB Last administered on 11/13/18 08:18; Admin Dose 100 MLS/HR; Start 11/09/18 at 21:00 Sodium Hypochlorite (Dakins Diluted (/40)) 1 applic DAILY TP Last administered on 11/13/18 08:19; Admin Dose 1 APPLIC; Start 11/09/18 at 21:00 Collagenase (Santyl) This patient yen... DAILY TOP Last administered on 11/13/18 08:17; Admin Dose 1 APPLIC; Start 11/10/18 at 10:00 Insulin Aspart (Novolog Insulin Pen) NOVOLOG *MILD* ALGORI... Q4 SC ; Start 11/11/18 at 01:00 Dextrose (D50w Syringe) 50 ml PRN PRN IV DECREASED GLUCOSE Last administered on 11/11/18 00:31; Admin Dose 50 ML; Start 11/11/18 at 00:30 Midodrine (Proamatine) 5 mg TID@09,13,17 NGT Last administered on 11/13/18 08:28; Admin Dose 5 MG; Start 11/12/18 at 09:24 Metoclopramide HCl (Reglan) 5 mg Q6 IV Last administered on 11/13/18 05:34; Admin Dose 5 MG; Start 11/12/18 at 18:00 Furosemide (Lasix) 40 mg DAILY IV Last administered on 11/13/18 08:17; Admin Dose 40 MG; Start 11/13/18 at 09:00 MARGARITA VARELA NP Nov 13, 2018 12:18
[2018-11-13] MEDS: CASPOFUNGIN 50 MG in SOD CHLORIDE 0.9% 250 ML IVPB SCH (12:27)
[2018-11-13] MEDS ORDERED: LOPERAMIDE HCL 1 MG/5 ML LIQUID (10 ML UD CUP) GTB PRN (14:00)
[2018-11-13] MEDS: DEXTROSE 50% 50 ML SYRINGE IV PRN (14:29)
[2018-11-14] VITALS (29 sets, daily range): BP systolic 85–137; BP diastolic 50–80; PULSE 57–92; RESP 17–31
[2018-11-14] MEDS: METOCLOPRAMIDE 10 MG INJ IV SCH ×4 (00:41→17:33)
[2018-11-14] MEDS: INSULIN ASPART [NOVOLOG] 3 ML PEN SC SCH ×6 (00:45→21:00)
[2018-11-14] MEDS: LANSOPRAZOLE 30 MG CAP GTB SCH (05:09)
[2018-11-14] MEDS: LEVOTHYROXINE 125 MCG TAB GTB SCH (06:00)
[2018-11-14] MEDS ORDERED: METOLAZONE 5 MG TAB PO ONE (07:00)
[2018-11-14] MEDS ORDERED: MAGNESIUM HYDROXIDE 30ML CUP GTB PRN (07:00)
[2018-11-14] MEDS: MEROPENEM 500MG/50 ML (PMX) 50 ML IVPB SCH ×2 (07:53→21:35)
[2018-11-14] MEDS: DEXTROSE 50% 50 ML SYRINGE IV PRN ×2 (07:53→21:45)
[2018-11-14] MEDS: LACTOBACILLUS RHAMNOSUS CAP GTB SCH ×2 (08:01→21:34)
[2018-11-14] MEDS: ASCORBIC ACID 500 MG TAB GTB SCH (08:01)
[2018-11-14] MEDS: AMIODARONE 200 MG TAB GTB SCH (08:02)
[2018-11-14] MEDS: MIDODRINE 5 MG TAB NGT SCH ×3 (08:02→17:33)
[2018-11-14] MEDS: FUROSEMIDE 40 MG INJ IV SCH (08:02)
[2018-11-14] MEDS: ZINC SULFATE 220 MG CAP GTB SCH (08:02)
[2018-11-14] MEDS: MULTIVITAMINS 30 ML CUP GTB SCH (08:03)
[2018-11-14] MEDS: ARTIFICIAL TEARS 15 ML OPH BOTH EYES SCH ×3 (08:03→21:34)
[2018-11-14] MEDS: COLLAGENASE 5 GM (UD JAR) TOP SCH (08:05)
[2018-11-14] MEDS: BALSAM PERU/CASTOR OIL 60 GM TUBE TOP SCH (08:06)
[2018-11-14] MEDS: DAKINS 0.0125%(1/40) 473 ML SOLUTION TP SCH (08:06)
--- NOTE | 2018-11-14 08:49 | PN ---
Date/Time of Note Date/Time of Note DATE: 11/14/18 TIME: 08:45 Assessment/Plan VTE Prophylaxis Risk score (from Ns)>0 risk: 12 SCD applied (from Ns): Yes Pharmacological prophylaxis: NA/contraindicated Pharm contraindication: low risk/ambulating Lines/Catheters IV Catheter Type (from Nrsg): Central Line Central line still needed: Yes Urinary Cath still in place: Yes Reason Cath still needed: terminal illness/intractable pain Assessment/Plan Assessment/Plan 82-year-old male chronically encephalopathic from records, it seems this was secondary to prior brain tumor status post craniotomy and partial resection also with volume loss and chronic subdural collection who is ventilator dependent and on tube feeds and resides [facility] and was sent to us for altered mentation and hypotension. The patient is also said to have had a CVA in the past. Is currently managed as follows: 1. Severe sepsis with shock thought to be secondary to bilateral pneumonia and UTI -Urine cultures growing Wandy -Endotracheal cultures growing pesudomonas and K Penumo esbl -Id managing abx 2. Septic shock - Resolved. Off all pressors. 3. Acute renal insufficiency with associated metabolic acidosis -Per nephrology, baseline creatinine is actually 1.0. Was on bicarb gtt, now off. 4. Paroxysmal atrial fibrillation currently rate controlled -Patient having episodes of arrhythmia and mild bradycardia -Patient on amiodarone for tachycardia, cardiology is not actually on the case, however heart rate is stable now, continue monitoring -Keep mag greater than 2.0 and potassium greater than 4 -Cardiology consult if indicated 5. Recent C. difficile colitis as well as DVT, September 2018 -Patient is not on aggressive DVT treatment due to recent craniotomy, but has been cleared for DVT prophylaxis by neurology -We will have family contact surgeon who did the original surgery to see if we can treat DVT at this time 6. Chronic ventilator dependent respiratory failure status post trach -Continue ventilator management 7. Hx of bran tumor s/p craniotomy about 3 months ago and prev CVA with chronic encephalopathy -family has noted minimal improvements in the last 3months, patient is moving LUE a bit and opens eyes spontaneously -Family has been updated that patient is likely never going to have significant recovery 8. Chronic neurogenic dysphagia on tube feedings -Nursing had verbalized concern for G-tube leakage, GI consult obtained, appreciate input -Patient plan for KUB to evaluate G-tube placement 9. Chronic cardiomyopathy with last known EF of 35% 10 Poorly controlled hypothyroidism -continue Synthroid. 11. Chronic hypochromic anemia -Transfused 1 unit of packed red cells so far this admission, hemoglobin dropped again to 7.3 12. Thrombocytopenia -Likely consumptive, No evidence of bleeding at this time, hold heparin 13. Diarrhea - Looks related to malabsorption. Stool is exact color as tube feed. Started imodium, will consult dietary to change tube feeds. Plan: -Transfer to telemetry -Continue antibiotics per ID - Maintain MAP>60. -Continue IV fluid hydration and free water flushes per nephrology -Continue serial lab monitoring and close electrolyte management -Further interventions per clinical course November 11, 2018: Had an extensive discussion with the patient's daughter, bedside nurse, family welfare social work professor, and patient's son via telephone. Patient's son was not receptive to any discussion about palliative care. Patient's daughter verbalized frustration and understanding that her father was suffering, but was frustrated at her brother's refusal to see it. She became tearful multiple times during the conversation. I also explained extensively the futility of further medical care. Patient's daughter verbalized understanding, but patient's son was adamant about not wanting to discuss anything pertaining to possible palliative care. Patient's is the legal decision maker, however per patient's daughter, she defers to her son. At this point I think bioethics consultation is warranted, to assist the family and myself in determining how to proceed further. It is my medical opinion that further aggressive care in this patient is futile. It will not prolong patient's life, it will not improve his quality of life. Patient is fully appropriate for comfort measures and patient is visibly suffering. However in the interim, in keeping with patient's family wishes, we will continue current care as defined above. Care time today: Greater than 40 minutes. Result Diagram: 11/14/1840911/14/18409 Subjective 24 Hr Interval Summary Free Text/Dictation No acute overnight events. Patient continues to have frequent diarrhea which looks like tube feed. Also with intermittent episodes of hypoglycemia. Exam/Review of Systems Exam Vitals Vital Signs Date Temp Pulse Resp B/P (MAP) Pulse Ox O2 O2 Flow FiO2 Time Delivery Rate 11/14/18 82 20 100/50 100 06:30 (67) 11/14/18 Mechanical 06:00 Ventilator 11/14/18 30 05:21 11/14/18 97.0 04:00 Intake and Output 11/13/18 11/13/18 11/14/18 1515:00 23:00 07:00 IntakeIntake Total 1180 ml 520 ml 610 ml OutputOutput Total 320 ml 465 ml 170 ml BalanceBalance 860 ml 55 ml 440 ml Exam Constitutional: non-verbal, other (cachetic , elderly, Patient unresponsive, not following commands or tracking), Obtunded Eyes occasionally open spontaneously, No oriented Head: normocephalic, atraumatic Eyes: PERRL, No icteric ENMT: trach to vent mucosa pink and moist (dry), mouth open Respiratory: diminished breath sounds, No labored breathing Cardiovascular: regular rate and rhythm, No murmurs/extra sounds Gastrointestinal: soft, non-tender, bowel sounds, other (PEG tube noted with no cellulitis or discharge) Genitourinary - male: nl external genitalia, lugo Extremities: R side: Chronically contracted on the R paresis minimal L foot withdrawal with stimulation Neurological: eyes opening spontaneously but no tracking or following commands, No nl mental status, No nl speech. R eye reactive to light, L pupil fixed and dilated. Results Results 24hrs Laboratory Tests Test 11/13/18 12:26 11/13/18 14:25 11/13/18 14:39 11/13/18 16:52 Bedside Glucose 71 67 L 130 78 Test 11/13/18 21:25 11/14/18 00:44 11/14/18 04:10 11/14/18 05:08 Bedside Glucose 75 70 70 White Blood Count 8.6 Red Blood Count 2.60 L Hemoglobin 7.2 L Hematocrit 23.8 L Mean Corpuscular Volume 91.5 Mean Corpuscular 27.7 L Hemoglobin Mean Corpuscular 30.3 L Hemoglobin Concent Red Cell Distribution 25.2 H Width Platelet Count 65 L Mean Platelet Volume 11.3 H Immature Granulocytes % 1.200 H Neutrophils % 37.1 L Lymphocytes % 42.2 Monocytes % 12.5 H Eosinophils % 6.5 Basophils % 0.5 Nucleated Red Blood 0.2 H Cells % Immature Granulocytes # 0.100 H Neutrophils # 3.2 Lymphocytes # 3.6 H Monocytes # 1.1 H Eosinophils # 0.6 H Basophils # 0.0 Nucleated Red Blood 0.0 Cells # Sodium Level 146 H Potassium Level 3.6 Chloride Level 124 H Carbon Dioxide Level 17 L Anion Gap 5 Blood Urea Nitrogen 10 Creatinine 2.27 H Est Glomerular Filtrat Rate mL/min Glucose Level 55 #L Calcium Level 7.7 L Phosphorus Level 2.9 Magnesium Level 1.8 Test 11/14/18 07:43 Bedside Glucose 58 L Medications Medication Current Medications Ondansetron HCl (Zofran Inj) 4 mg Q6H PRN IV NAUSEA AND/OR VOMITING; Start 11/07/18 at 20:00 Albuterol (Ventolin Hfa) 4 puff Q2H RESP THERAPY PRN INH SHORTNESS OF BREATH; Start 11/07/18 at 20:00 Ipratropium [place] (Atrovent Hfa) 4 puff Q2H RESP THERAPY PRN INH SHORTNESS OF BREATH; Start 11/07/18 at 20:00 Acetaminophen (Tylenol Liquid) 650 mg Q4H PRN GTB MILD PAIN LEVEL 1-3; Start 11/08/18 at 03:30 Ascorbic Acid (Vitamin C) 500 mg DAILY GTB Last administered on 11/14/18at 08:01; Admin Dose 500 MG; Start 11/08/18 at 09:00 Epoetin Adrian-epbx (Retacrit (Esrd)) 8,000 unit MONWEDFRI@1700 SC Last administered on 11/12/18at 17:35; Admin Dose 8,000 UNIT; Start 11/08/18 at 17:00 Al Hydrox/Mg Hydrox/Simethicone (Mag-Al Plus) 30 ml Q4H PRN GTB GASTROINTESTINAL UPSET; Start 11/08/18 at 03:30 Sodium Biphosphate/ Sodium Phosphate (Fleet Enema) 133 ml DAILY PRN [place] CONSTIPATION; Start 11/08/18 at 03:30 Ondansetron HCl (Zofran Tab) 4 mg Q6H PRN GTB NAUSEA AND/OR VOMITING; Start 11/08/18 at 03:30 Eye Lubricant (Artificial Tears Oph) 1 drop TID BOTH EYES Last administered on 11/14/18at 08:03; Admin Dose 1 DROP; Start 11/08/18 at 09:00 Tramadol HCl (Ultram) 50 mg BID PRN GTB PAIN; Start 11/08/18 at 03:30 Zinc Sulfate (Zinc Sulfate) 220 mg DAILY GTB Last administered on 11/14/18 0 8:02; Admin Dose 220 MG; Start 11/08/18 at 09:00 Amiodarone HCl (Cordarone) 200 mg DAILY GTB Last administered on 11/14/18 08:02; Admin Dose 200 MG; Start 11/08/18 at 09:00 Lactobacillus Acidophilus/ Rhamnosus (Culturelle) 1 cap BID GTB Last administered on 11/14/18 08:01; Admin Dose 1 CAP; Start 11/08/18 at 09:00 Lansoprazole (Prevacid) 30 mg DAILY@06 GTB Last administered on 11/14/18 05:09; Admin Dose 30 MG; Start 11/08/18 at 06:00 Levothyroxine Sodium (Synthroid) 125 mcg BEFORE BREAKFAST GTB Last administered on 11/14/18 06:00; Admin Dose 125 MCG; Start 11/09/18 at 07:00 Heparin Sodium (Porcine) (Heparin (5000 Units/1ml)) 5,000 unit BID SC Last administered on 11/12/18 08:40; Admin Dose 5,000 UNIT; Start 11/08/18 at 21:00; Status Hold Multivitamins (Multivitamin) 30 ml DAILY GTB Last administered on 11/14/18 08:03; Admin Dose 30 ML; Start 11/09/18 at 10:00 Caspofungin 50 mg/ Sodium Chloride 250 ml @ 250 mls/hr Q24H IVPB Last administered on 11/13/18 12:27; Admin Dose 250 MLS/HR; Start 11/10/18 at 13:00 Meropenem/Sodium Chloride 50 ml @ 100 mls/hr Q12 IVPB Last administered on 11/14/18 07:53; Admin Dose 100 MLS/HR; Start 11/09/18 at 21:00 Sodium Hypochlorite (Dakins Diluted ()) 1 applic DAILY TP Last administered on 11/14/18 08:06; Admin Dose 1 APPLIC; Start 11/09/18 at 21:00 Collagenase (Santyl) This patient yen... DAILY TOP Last administered on 11/14/18 08:05; Admin Dose 1 APPLIC; Start 11/10/18 at 10:00 Insulin Aspart (Novolog Insulin Pen) NOVOLOG *MILD* ALGORI... Q4 SC ; Start 11/11/18 at 01:00 Dextrose (D50w Syringe) 50 ml PRN PRN IV DECREASED GLUCOSE Last administered on 11/14/18at 07:53; Admin Dose 50 ML; Start 11/11/18 at 00:30 Midodrine (Proamatine) 5 mg TID@09,13,17 NGT Last administered on 11/14/18at 08:02; Admin Dose 5 MG; Start 11/12/18 at 09:24 Metoclopramide HCl (Reglan) 5 mg Q6 IV Last administered on 11/14/18at 05:09; Admin Dose 5 MG; Start 11/12/18 at 18:00 Furosemide (Lasix) 40 mg DAILY IV Last administered on 11/14/18at 08:02; Admin D ose 40 MG; Start 11/13/18 at 09:00 Loperamide HCl (Imodium 1mg/5ml (10 ml Cup)) 2 mg QID PRN GTB DIARRHEA Last administered on 11/13/18at 14:21; Admin Dose 2 MG; Start 11/13/18 at 14:00 Magnesium Hydroxide (Milk Of Mag) 30 ml DAILY PRN GTB CONSTIPATION; Start 11/14/18 at 07:00 EVA BURGESS MD Nov 14, 2018 08:49
--- NOTE | 2018-11-14 11:49 | CONS ---
Consult Date/Type/Reason Admit Date/Time Nov 07, 2018 at 18:54 Initial Consult Date 11/11/18 Type of Consultation: Pulm/CCM Requesting Provider: KYLE SEVERINO Date/Time of Note DATE: 11/14/18 TIME: 11:45 Subjective Remains off pressors; on mechanical ventilation. Objective Vitals Vital Signs Date Temp Pulse Resp B/P (MAP) Pulse Ox O2 O2 Flow FiO2 Time Delivery Rate 11/14/18 92 31 108/71 100 Mechanical 10:00 (83) Ventilator 11/14/18 30 09:25 11/14/18 96.9 08:00 Intake and Output 11/13/18 11/13/18 11/14/18 1515:00 23:00 07:00 IntakeIntake Total 1180 ml 520 ml 610 ml OutputOutput Total 320 ml 465 ml 170 ml BalanceBalance 860 ml 55 ml 440 ml Exam HEENT: Neck supple; no JVD; no LAD: + trach CVS: Irreg, S1 and S2 CHEST: Coarse BS b/l ABD: Soft, NT, + BS EXT: No c/c: + edema NEURO: + diffuse weakness; contractures Results/Medications Result Diagram: 11/14/18 0410 11/14/18 0410 Results 24 hrs Laboratory Tests Test 11/13/18 12:26 11/13/18 14:25 11/13/18 14:39 11/13/18 16:52 Bedside Glucose 71 67 L 130 78 Test 11/13/18 21:25 11/14/18 00:44 11/14/18 04:10 11/14/18 05:08 Bedside Glucose 75 70 70 White Blood Count 8.6 Red Blood Count 2.60 L Hemoglobin 7.2 L Hematocrit 23.8 L Mean Corpuscular Volume 91.5 Mean Corpuscular 27.7 L Hemoglobin Mean Corpuscular 30.3 L Hemoglobin Concent Red Cell Distribution 25.2 H Width Platelet Count 65 L Mean Platelet Volume 11.3 H Immature Granulocytes % 1.200 H Neutrophils % 37.1 L Lymphocytes % 42.2 Monocytes % 12.5 H Eosinophils % 6.5 Basophils % 0.5 Nucleated Red Blood 0.2 H Cells % Immature Granulocytes # 0.100 H Neutrophils # 3.2 Lymphocytes # 3.6 H Monocytes # 1.1 H Eosinophils # 0.6 H Basophils # 0.0 Nucleated Red Blood 0.0 Cells # Sodium Level 146 H Potassium Level 3.6 Chloride Level 124 H Carbon Dioxide Level 17 L Anion Gap 5 Blood Urea Nitrogen 10 Creatinine 2.27 H Est Glomerular Filtrat Rate mL/min Glucose Level 55 #L Calcium Level 7.7 L Phosphorus Level 2.9 Magnesium Level 1.8 Test 11/14/18 07:43 Bedside Glucose 58 L Home Meds Reported Medications Amiodarone Hcl* (Amiodarone Hcl*) 200 Mg Tablet, 400 MG GTB BID, #180 TAB 11/07/18 Metoprolol Succinate* (Toprol XL*) 25 Mg Tab.sr.24h, 25 MG GTB DAILY, #30 TAB 11/07/18 Ferrous Sulfate* (Ferrous Sulfate*) 325 Mg Tabec, 330 MG GTB BID, TAB 11/07/18 Epoetin fox* (Epogen*) 4,000 Unit/1 Ml Vial, 8000 UNIT SC MONWED[place]RI, VIAL HOLD IF >10.5 11/07/18 Omeprazole* (Omeprazole*) 40 Mg Capsule.dr, 40 MG GTB DAILY, #30 CAP 11/07/18 Cran/Vitc/Mannose/Inulin/Brom (Uti-Stat Liquid) 3,875 Mg/30 Ml Liquid, 3875 MG GTB DAILY 11/07/18 Cranberry Extract (Cranberry) 425 Mg Capsule, 425 MG GTB DAILY, CAP 11/07/18 Magaldrate/Simethicone* (Mag-Al Plus Suspension*) 30 Ml Oral.susp, 30 ML GTB Q4 PRN for GASTROINTESTINAL UPSET, ML 11/07/18 Vancomycin HCl in Dextrose 5 % (Vancomycin 750 mg/250 ml-D5w) 750 Mg/250 Ml Plast..bag, 250 MG IV Q6 11/07/18 Potassium Chloride* (K-Dur*) 20 Meq Tab.prt.sr, 40 MEQ GTB DAILY, TAB.SA 11/07/18 Lactobacillus Acidophilus/Pect (Acidophilus-Pectin Capsule) 1 Each Capsule, 1 EACH GTB DAILY, CAP MIX WITH APPLE SAUCE 11/07/18 Sulfamethoxazole/Trimethoprim* (Bactrim Ds* Tablet) 1 Each Tablet, 1 TAB GTB BID, TAB 11/07/18 Tramadol Hcl* (Ultram*) 50 Mg Tablet, 50 MG GTB BID PRN for PAIN MANAGEMENT, TAB 10/02/18 Magnesium Hydroxide* (Milk Of Magnesia*) 400 Mg/5 Ml Oral.susp, 30 ML GTB DAILY, ML 10/02/18 Ondansetron Hcl* (Zofran*) 4 Mg Tablet, 4 MG GTB Q6H PRN for NAUSEA AND OR VOMITING, TAB 10/02/18 Levothyroxine Sodium* (Levoxyl*) 50 Mcg Tablet, 50 MCG GTB BEFORE BREAKFAST, #30 TAB 10/02/18 Polyvinyl Alcohol (Tears Again) 15 Ml Drops, 1 DRP BOTH EYES TID, BOTTLE 10/02/18 Acetaminophen* (Acetaminophen*) 650 Mg Tablet, 650 MG GTB Q4 PRN for MILD PAIN LEVEL 1-3, #30 TAB FOR FEVER AND TRACH CHANGE 10/02/18 Acetaminophen* (Acetaminophen*) 500 MG Extra Strength Tablet, 1000 MG GTB Q4 PRN for MODERATE PAIN LEVEL 4-6, TAB 10/02/18 Zinc Sulfate* (Zinc Sulfate*) 220 Mg Cap, 220 MG GTB DAILY, CAP 10/02/18 Ascorbic Acid* (Vitamin C*) 500 Mg Capsule.sa, 500 MG GTB DAILY, CAP 10/02/18 Multivitamin with Minerals (Daily Vitamin Formula-Minerals) 1 Each Tablet, 1 EACH GTB DAILY, TAB 10/02/18 Amino Acids/Protein Hydrolys (Pro-Stat Awc Liquid) 30 Ml Liquid, 30 ML GTB DAILY SUGAR FREE 10/02/18 Na Phos,M-B/Na Phos,Di-Ba (ENEMA DHQRY-HG-XWN) 133 Ml Enema, 133 ML RC EVERY 2 DAYS PRN for CONSTIPATION, ENEMA 10/02/18 Bisacodyl (Dulcolax) 10 Mg Supp.rect, 10 MG RC DAILY PRN for CONSTIPATION, SUPP.RECT 10/02/18 Docusate Sodium* (Colace*) 100 Mg Capsule, 100 MG GTB BID, #60 CAP 10/02/18 Discontinued Reported Medications Magaldrate/Simethicone* (Mag-Al Plus Suspension*) 30 Ml Oral.susp, 30 ML GTB Q4 PRN for GASTROINTESTINAL UPSET, ML 10/02/18 Pantoprazole Sodium (Protonix) 40 Mg Granpkt.dr, 40 MG GTB DAILY MIX CONTENTS WITH APPLE SAUCE THEN FLUSH WITH 30ML APPLE JUICE 6/22/19 Atorvastatin* (Atorvastatin*) 40 Mg Tablet, 40 MG GTB QHS, #30 TAB 10/02/18 Discontinued Scripts Metoprolol Succinate* (Toprol XL*) 25 Mg Tab.sr.24h, 25 MG PO DAILY, #60 Prov:TANIYA LOVE 10/11/18 Amiodarone Hcl* (Amiodarone Hcl*) 200 Mg Tablet, 400 MG PO BID, #60 TAB Prov:MAHOGANY LOVEYonatan 10/11/18 [Vancomycin Oral Syringe] 50 MG/ML SOLN No Conflict Check, 125 MG GTB Q6 for 4 Days, #16 Prov:KATETANIYA 10/11/18 Medications Current Medications Ondansetron HCl (Zofran Inj) 4 mg Q6H PRN IV NAUSEA AND/OR VOMITING; Start 11/07/18 at 20:00 Albuterol (Ventolin Hfa) 4 puff Q2H RESP THERAPY PRN INH SHORTNESS OF BREATH; Start 11/07/18 at 20:00 Ipratropium [place] (Atrovent Hfa) 4 puff Q2H RESP THERAPY PRN INH SHORTNESS OF BREATH; Start 11/07/18 at 20:00 Acetaminophen (Tylenol Liquid) 650 mg Q4H PRN GTB MILD PAIN LEVEL 1-3; Start 11/08/18 at 03:30 Ascorbic Acid (Vitamin C) 500 mg DAILY GTB Last administered on 11/14/18at 08:01; Admin Dose 500 MG; Start 11/08/18 at 09:00 Epoetin Fox-epbx (Retacrit (Esrd)) 8,000 unit MONWEDFRI@1700 SC Last administered on 11/12/18at 17:35; Admin Dose 8,000 UNIT; Start 11/08/18 at 17:00 Al Hydrox/Mg Hydrox/Simethicone (Mag-Al Plus) 30 ml Q4H PRN GTB GASTROINTESTINAL UPSET; Start 11/08/18 at 03:30 Sodium Biphosphate/ Sodium Phosphate (Fleet Enema) 133 ml DAILY PRN IN CONSTIPATION; Start 11/08/18 at 03:30 Ondansetron HCl (Zofran Tab) 4 mg Q6H PRN GTB NAUSEA AND/OR VOMITING; Start 11/08/18 at 03:30 Eye Lubricant (Artificial Tears Oph) 1 drop TID BOTH EYES Last administered on 11/14/18 08:03; Admin Dose 1 DROP; Start 11/08/18 at 09:00 Tramadol HCl (Ultram) 50 mg BID PRN GTB PAIN; Start 11/08/18 at 03:30 Zinc Sulfate (Zinc Sulfate) 220 mg DAILY GTB Last administered on 11/14/18 08:02; Admin Dose 220 MG; Start 11/08/18 at 09:00 Amiodarone HCl (Cordarone) 200 mg DAILY GTB Last administered on 11/14/18 08:02; Admin Dose 200 MG; Start 11/08/18 at 09:00 Lactobacillus Acidophilus/ Rhamnosus (Culturelle) 1 cap BID GTB Last administered on 11/14/18 08:01; Admin Dose 1 CAP; Start 11/08/18 at 09:00 Lansoprazole (Prevacid) 30 mg DAILY@06 GTB Last administered on 11/14/18 05:09; Admin Dose 30 MG; Start 11/08/18 at 06:00 Levothyroxine Sodium (Synthroid) 125 mcg BEFORE BREAKFAST GTB Last administered on 11/14/18 06:00; Admin Dose 125 MCG; Start 11/09/18 at 07:00 Heparin Sodium (Porcine) (Heparin (5000 Units/1ml)) 5,000 unit BID SC Last administered on 11/12/18 08:40; Admin Dose 5,000 UNIT; Start 11/08/18 at 21:00; Status Hold Multivitamins (Multivitamin) 30 ml DAILY GTB Last administered on 11/14/18 08:03; Admin Dose 30 ML; Start 11/09/18 at 10:00 Caspofungin 50 mg/ Sodium Chloride 250 ml @ 250 mls/hr Q24H IVPB Last adm inistered on 11/13/18 12:27; Admin Dose 250 MLS/HR; Start 11/10/18 at 13:00 Meropenem/Sodium Chloride 50 ml @ 100 mls/hr Q12 IVPB Last administered on 11/14/18 07:53; Admin Dose 100 MLS/HR; Start 11/09/18 at 21:00 Sodium Hypochlorite (Dakins Diluted ()) 1 applic DAILY TP Last administered on 8/4/19at 08:06; Admin Dose 1 APPLIC; Start 11/09/18 at 21:00 Collagenase (Santyl) This patient yen... DAILY TOP Last administered on 11/14/18 08:05; Admin Dose 1 APPLIC; Start 11/10/18 at 10:00 Insulin Aspart (Novolog Insulin Pen) NOVOLOG *MILD* ALGORI... Q4 SC ; Start 11/11/18 at 01:00 Dextrose (D50w Syringe) 50 ml PRN PRN IV DECREASED GLUCOSE Last administered on 11/14/18 07:53; Admin Dose 50 ML; Start 11/11/18 at 00:30 Midodrine (Proamatine) 5 mg TID@09,13,17 NGT Last administered on 11/14/18 08:02; Admin Dose 5 MG; Start 11/12/18 at 09:24 Metoclopramide HCl (Reglan) 5 mg Q6 IV Last administered on 11/14/18 05:09; Admin Dose 5 MG; Start 11/12/18 at 18:00 Furosemide (Lasix) 40 mg DAILY IV Last administered on 11/14/18 08:02; Admin Dose 40 MG; Start 11/13/18 at 09:00 Loperamide HCl (Imodium 1mg/5ml (10 ml Cup)) 2 mg QID PRN GTB DIARRHEA Last administered on 11/13/18 14:21; Admin Dose 2 MG; Start 11/13/18 at 14:00 Magnesium Hydroxide (Milk Of Mag) 30 ml DAILY PRN GTB CONSTIPATION; Start 11/14/18 at 07:00 Assessment/Plan Assessment/Plan (Daily) IMP: 1. Sepsis/Septic Shock--improved 2. VDRF 3. Paroxysmal Atrial Fibrillation 4. Acute on chronic RF 5. CHF 6. Anemia 7. Thrombocytopenia 8. H/O VTE 9. History of C.Diff RECS: 1. Abx per ID 2. Follow cultures 3. Vent support 4. Obtain am CXR/ABG 5. TF/Free H20 6. Stable for Tele 35 min cc time MIKAEL BLISS MD Nov 14, 2018 11:49
[2018-11-14] MEDS: CASPOFUNGIN 50 MG in SOD CHLORIDE 0.9% 250 ML IVPB SCH (14:10)
--- NOTE | 2018-11-14 19:07 | CONS ---
Assessment/Plan Assessment/Plan Hospital Course (Demo Recall) ID PROGRESS NOTE CURRENT ABX: DAY # 7 => Merrem + Cancidas s/p >Vanco IV 24H INTERVAL SUMMARY * TNS out of the ICU to TELE -- remains stable off pressors * Elderly M, VSS, NAD on the Vent -- noncommunicative * INDWELLINGS: Trach, PEG, Mcintyre, left subclavian triple-lumen catheter. DIAGNOSTIC IMAGING * 11/14/18 CXR: 1. Stable mild increased vascular congestion throughout the lungs.2. Stable small bilateral basilar layering pleural effusions.3. Stable lines and tubes in good position without pneumothorax.4. Scattered benign chronic senescent changes. * 11/11/18 ABD XR: Nonobstructive bowel gas pattern. Injection of contrast into a percutaneous feeding tube results in opacification of a left-sided bowel loop without contrast extravasation. * 11/10/2018 CXR: Findings suggesting the presence of mild pulmonary edema, similar to the prior day. Lines and tubes are stable. Aortic atherosclerotic calcification. MICRO * 11/09/18 TRACH CX: RESPIRATORY CULTURE Final Organism 1 K PNEUMO ESBL QUANTITY SCANT GROWTH . MULTI DRUG RESISTANT ORGANISM Organism 2 PSEUDOMONAS AERUGINOSA QUANTITY SCANT GROWTH * 11/08/18 URINE CX (+) URINE CULTURE Final Organism 1 YARELIS ALBICANS COLONY COUNT >100,000 CFU/ml * 11/08/18 BCX (-) * 11/08/18 RESP CX: RESPIRATORY CULTURE Final Organism 1 PSEUDOMONAS AERUGINOSA QUANTITY 1+ Organism 2 K PNEUMO ESBL QUANTITY SCANT GROWTH . MULTI DRUG RESISTANT ORGANISM P.AERUG KLEB PNEUM KLEB PNEUM M.I.C. RX M.I.C. RX M.I.C. RX --------- --- --------- --- --------- --- AMIKACIN <=2 S 4 S AZTREONAM S CEFAZOLIN R CEFEPIME 2 S 2 S CEFOTAXIME R CEFTAZIDIME 4 S CIPROFLOXACIN <=0.25 S 2 I GENTAMICIN <=1 S >=16 R LEVOFLOXACIN 1 S 1 S MEROPENEM 0.006 S TOBRAMYCIN <=1 S >=16 R TRIMETHOPRIM/SULFAMETHOXAZOLE >=320 R PIPERACILLIN/TAZOBACTAM 16 S 32 I -- PHYSICAL EXAMINATION: GENERAL: VSS, NAD HEENT: AT, NC, Trach secure NECK: Supple, CHEST: Rise symmetrical - vented HEART: Pulse RRR ABDOMEN: Peg EXTREMITIES: Warm, dry SKIN: No rash, no diaphoresis ID ASSESSMENT 83 yo M admit with: 1. Severe sepsis with shock. 2. Urinary tract infection. 3. Healthcare-associated pneumonia. 4. Acute renal failure. 5. Left kidney lesion of unclear significance. 6. Atrial fibrillation. 7. History of brain tumor, status post craniotomy. 8. History of deep venous thrombosis. 9. Chronic respiratory failure (-) MRSA Nares ABX ALLERGIES: KNDA INVASIVES: Trach, PEG, Mcintyre, left subclavian triple-lumen catheter. CURRENT ABX: DAY # 7 =>+ Merrem + Cancidas s/p Vanco IV ID RECOMMENDATIONS/PLAN: 1. Continue Merrem + Cancidas over the weekend 2. Vanco IV DC'd yesterday . Consultation Date/Type/Reason Admit Date/Time Nov 07, 2018 at 18:54 Initial Consult Date 11/11/18 Requesting Provider: KYLE SEVERINO Date/Time of Note DATE: 11/14/18 TIME: 19:04 Exam/Review of Systems Exam Vitals Vital Signs Date Temp Pulse Resp B/P (MAP) Pulse Ox O2 O2 Flow FiO2 Time Delivery Rate 11/14/18 79 19 100 30 17:52 11/14/18 98.0 115/73 Mechanical 15:29 (87) Ventilator Trach Collar Intake and Output 11/13/18 11/13/18 11/14/18 1515:00 23:00 07:00 IntakeIntake Total 1180 ml 520 ml 610 ml OutputOutput Total 320 ml 465 ml 170 ml BalanceBalance 860 ml 55 ml 440 ml Results Result Diagram: 11/14/18 0410 11/14/18409 Results 24hrs Laboratory Tests Test 11/13/18 21:25 11/14/18 00:44 8/4/19 04:10 11/14/18 05:08 Bedside Glucose 75 70 70 White Blood Count 8.6 Red Blood Count 2.60 L Hemoglobin 7.2 L Hematocrit 23.8 L Mean Corpuscular Volume 91.5 Mean Corpuscular 27.7 L Hemoglobin Mean Corpuscular 30.3 L Hemoglobin Concent Red Cell Distribution 25.2 H Width Platelet Count 65 L Mean Platelet Volume 11.3 H Immature Granulocytes % 1.200 H Neutrophils % 37.1 L Lymphocytes % 42.2 Monocytes % 12.5 H Eosinophils % 6.5 Basophils % 0.5 Nucleated Red Blood 0.2 H Cells % Immature Granulocytes # 0.100 H Neutrophils # 3.2 Lymphocytes # 3.6 H Monocytes # 1.1 H Eosinophils # 0.6 H Basophils # 0.0 Nucleated Red Blood 0.0 Cells # Sodium Level 146 H Potassium Level 3.6 Chloride Level 124 H Carbon Dioxide Level 17 L Anion Gap 5 Blood Urea Nitrogen 10 Creatinine 2.27 H Est Glomerular Filtrat Rate mL/min Glucose Level 55 #L Calcium Level 7.7 L Phosphorus Level 2.9 Magnesium Level 1.8 Test 11/14/18 07:43 11/14/18 13:11 11/14/18 16:43 Bedside Glucose 58 L 82 70 Medications Medication Current Medications Ondansetron HCl (Zofran Inj) 4 mg Q6H PRN IV NAUSEA AND/OR VOMITING; Start 11/07/18 at 20:00 Albuterol (Ventolin Hfa) 4 puff Q2H RESP THERAPY PRN INH SHORTNESS OF BREATH; Start 11/07/18 at 20:00 Ipratropium [place] (Atrovent Hfa) 4 puff Q2H RESP THERAPY PRN INH SHORTNESS OF BREATH; Start 11/07/18 at 20:00 Acetaminophen (Tylenol Liquid) 650 mg Q4H PRN GTB MILD PAIN LEVEL 1-3; Start 11/08/18 at 03:30 Ascorbic Acid (Vitamin C) 500 mg DAILY GTB Last administered on 11/14/18at 08:01; Admin Dose 500 MG; Start 11/08/18 at 09:00 Epoetin [place]-epbx (Retacrit (Esrd)) 8,000 unit MONWEDFRI@1700 SC Last administered on 11/12/18at 17:35; Admin Dose 8,000 UNIT; Start 11/08/18 at 17:00 Al Hydrox/Mg Hydrox/Simethicone (Mag-Al Plus) 30 ml Q4H PRN GTB GASTROINTESTINAL UPSET; Start 11/08/18 at 03:30 Sodium Biphosphate/ Sodium Phosphate (Fleet Enema) 133 ml DAILY PRN IA CONSTIPATION; Start 11/08/18 at 03:30 Ondansetron HCl (Zofran Tab) 4 mg Q6H PRN GTB NAUSEA AND/OR VOMITING; Start 11/08/18 at 03:30 Eye Lubricant (Artificial Tears Oph) 1 drop TID BOTH EYES Last administered on 11/14/18 13:12; Admin Dose 1 DROP; Start 11/08/18 at 09:00 Tramadol HCl (Ultram) 50 mg BID PRN GTB PAIN; Start 11/08/18 at 03:30 Zinc Sulfate (Zinc Sulfate) 220 mg DAILY GTB Last administered on 11/14/18 08:02; Admin Dose 220 MG; Start 11/08/18 at 09:00 Amiodarone HCl (Cordarone) 200 mg DAILY GTB Last administered on 11/14/18 08:02; Admin Dose 200 MG; Start 11/08/18 at 09:00 Lactobacillus Acidophilus/ Rhamnosus (Culturelle) 1 cap BID GTB Last administered on 11/14/18 08:01; Admin Dose 1 CAP; Start 11/08/18 at 09:00 Lansoprazole (Prevacid) 30 mg DAILY@06 GTB Last administered on 11/14/18 05:09; Admin Dose 30 MG; Start 11/08/18 at 06:00 Levothyroxine Sodium (Synthroid) 125 mcg BEFORE BREAKFAST GTB Last administered on 11/14/18 06:00; Admin Dose 125 MCG; Start 11/09/18 at 07:00 Heparin Sodium (Porcine) (Heparin (5000 Units/1ml)) 5,000 unit BID SC Last administered on 11/12/18 08:40; Admin Dose 5,000 UNIT; Start 11/08/18 at 21:00; Status Hold Multivitamins (Multivitamin) 30 ml DAILY GTB Last administered on 11/14/18 08:03; Admin Dose 30 ML; Start 11/09/18 at 10:00 Caspofungin 50 mg/ Sodium Chloride 250 ml @ 250 mls/hr Q24H IVPB Last administered on 11/14/18 14:10; Admin Dose 250 MLS/HR; Start 11/10/18 at 13:00 Meropenem/Sodium Chloride 50 ml @ 100 mls/hr Q12 IVPB Last administered on 11/14/18 07:53; Admin Dose 100 MLS/HR; Start 11/09/18 at 21:00 Sodium Hypochlorite (Dakins Diluted ()) 1 applic DAILY TP Last administered on 11/14/18 08:06; Admin Dose 1 APPLIC; Start 11/09/18 at 21:00 Collagenase (Santyl) This patient yen... DAILY TOP Last administered on 11/14/18 08:05; Admin Dose 1 APPLIC; Start 11/10/18 at 10:00 Insulin Aspart (Novolog Insulin Pen) NOVOLOG *MILD* ALGORI... Q4 SC ; Start 11/11/18 at 01:00 Dextrose (D50w Syringe) 50 ml PRN PRN IV DECREASED GLUCOSE Last administered on 11/14/18 07:53; Admin Dose 50 ML; Start 11/11/18 at 00:30 Midodrine (Proamatine) 5 mg TID@09,13,17 NGT Last administered on 11/14/18 17:33; Admin Dose 5 MG; Start 11/12/18 at 09:24 Metoclopramide HCl (Reglan) 5 mg Q6 IV Last administered on 11/14/18 17:33; Admin Dose 5 MG; Start 11/12/18 at 18:00 Furosemide (Lasix) 40 mg DAILY IV Last administered on 11/14/18 08:02; Admin Dose 40 MG; Start 11/13/18 at 09:00 Loperamide HCl (Imodium 1mg/5ml (10 ml Cup)) 2 mg QID PRN GTB DIARRHEA Last administered on 11/13/18 14:21; Admin Dose 2 MG; Start 11/13/18 at 14:00 Magnesium Hydroxide (Milk Of Mag) 30 ml DAILY PRN GTB CONSTIPATION; Start 11/14/18 at 07:00 MARGARITA VARELA NP Nov 14, 2018 19:07
[2018-11-15] VITALS (13 sets, daily range): BP systolic 111–144; BP diastolic 55–79; PULSE 68–88; RESP 16–28
[2018-11-15] MEDS: INSULIN ASPART [NOVOLOG] 3 ML PEN SC SCH ×5 (01:00→18:35)
[2018-11-15] MEDS: METOCLOPRAMIDE 10 MG INJ IV SCH ×4 (03:35→18:46)
[2018-11-15] MEDS: LANSOPRAZOLE 30 MG CAP GTB SCH (04:59)
[2018-11-15] MEDS: LEVOTHYROXINE 125 MCG TAB GTB SCH (05:00)
--- NOTE | 2018-11-15 06:25 | PN ---
DATE: 11/14/2018 SUBJECTIVE: The patient has remained on pressor support last 24 hours. Urinary output has been judy inal. No other events noted. The patient continues to have diarrhea. OBJECTIVE: VITAL SIGNS: Blood pressure is 100/50, respiratory rate 20, pulse 82, temperature 97.0. HEENT: Head is normocephalic. NECK: Supple. HEART: Regular rate. LUNGS: Show diminished breath sounds at the base. ABDOMEN: Soft, nontender to palpation without rebound or guarding. EXTREMITIES: Negative for clubbing, cyanosis. Positive edema, diffuse anasarca. DERMATOLOGIC: No rashes. MUSCULOSKELETAL: No joint effusion. NEUROLOGIC: No change in exam. MEDICATIONS: Have been reviewed. LABORATORY DATA: Has been reviewed. IMAGING STUDIES: Have been reviewed. ASSESSMENT AND PLAN: 1. Nonoliguric acute kidney injury with previous baseline creatinine 1.0 mg/dL. Etiology of ____ se condary to acute tubular necrosis due to sepsis, shock. The patient appears to be in a slow recovery phase of acute tubular necrosis. Continue current treatment plans, supportive care, ____ dose all m edication. 2. ____. Etiology is multifactorial secondary to acute kidney injury ____. Continue current diuret ic regimen. Will add metolazone to help augment diuresis. 3. Hypernatremia. Increase free water flushes 200 mL every 4 hours. 4. Hypokalemia. Continue to monitor and replete as needed. 5. Metabolic acidosis, respiratory alkalosis. Etiology of acidosis secondary to acute kidney injury , diabetic. Continue to monitor. The patient is ____ bicarbonate drip. 6. Anemia. Monitor ____. 7. Mineral and bone disorder, ____. 8. Sepsis, status post shock secondary to urinary tract infection. Continue ____ therapy, antifunga l therapy. 9. Dysphagia, status post percutaneous endoscopic gastrostomy. Continue tube feeding. 10. Acute and chronic encephalopathy. 11. History of brain tumor. 12. History of ____ prophylaxis. Dictated By: ZAYDA GLASER/NTS Conf#: [id number] DID#: [id number] CC: CELINA HANCOCK MD; TANIYA LOVE MD; EVA BURGESS MD; PATRICIA BRICE;*EndCC*
--- NOTE | 2018-11-15 06:33 | PN ---
DATE: 11/12/2018 SUBJECTIVE: The patient remains critically ill on full ventilatory support. The patient's pressor s upport has been weaning down. Urinary output is marginal. The other events noted. No hemoptysis, h ematemesis or hematochezia. OBJECTIVE: VITAL SIGNS: Blood pressure is 99/52, respirations 23, pulse 74, temperature 98.6. I's and O's revi ewed. HEENT: Head is normocephalic. NECK: Supple. HEART: Regular rate. LUNGS: Show diminished breath sounds at the base. ABDOMEN: Soft, nontender to palpation. EXTREMITIES: Negative for clubbing, cyanosis. Positive edema, diffuse anasarca. DERMATOLOGIC: No rashes. MUSCULOSKELETAL: No joint effusion. NEUROLOGIC: No change in exam. MEDICATIONS: Have been reviewed. LABORATORY DATA: Has been reviewed. IMAGING STUDIES: Have been reviewed. ASSESSMENT AND PLAN: 1. Oliguric acute kidney injury with previous baseline creatinine 1.0 mg/dL. Etiology of acute kidn ey injury is secondary to acute tubular necrosis due to sepsis and shock. The patient's renal functi on has remained overall stable as the patient is in maintenance phase of acute tubular necrosis. Con tinue current treatment plan, supportive care, renally dose all meds, continue pressor support. Cont inue antibiotic therapy. We will deescalate IV fluids. 2. Volume overload. Etiology is multifactorial secondary to acute kidney injury, capillary leak. W ill give the patient a dose of metolazone for diuresis. Monitor hemodynamics closely. 3. Hypernatremia. Etiology is due to insensible losses. Will increase free water flushes 200 mL q. 4 hours. Continue hypertonic fluid and monitor. 4. Hyperkalemia monitor and repeat if needed. 5. Mixed acid-base disorder. Metabolic acidosis, respiratory alkalosis. Continue to monitor. Curr ently on bicarbonate drip. 6. Anemia. Monitor hemoglobin and hematocrit levels. 7. Mineral bone disorder. Monitor calcium and phosphorus levels. 8. Septic shock secondary to urinary tract infection. Continue antibiotic therapy, pressor support. 9. Dysphagia, status post PEG. Continue tube feeding. 10. Acute on chronic encephalopathy. 11. History of brain tumor. 12. History of renal cyst 13. Gastrointestinal and deep vein thrombosis prophylaxis. Please note I spent over 30 minutes of critical care time with this patient. Dictated By: ZAYDA GLASER/BETZAIDA Conf#: [id number] DID#: [id number]
[2018-11-15] MEDS ORDERED: DEXTROSE 5% 1,000 ML IV SCH (08:00)
[2018-11-15] MEDS ORDERED: METOLAZONE 5 MG TAB PO ONE (08:00)
--- NOTE | 2018-11-15 08:47 | PN ---
DATE: 11/15/2018 SUBJECTIVE: The patient is stable. No events overnight. OBJECTIVE: VITAL SIGNS: Blood pressure 144/60, pulse 73, respirations 20, temperature 98.0. HEENT: Head is normocephalic. NECK: Supple. HEART: Regular rate. LUNGS: Show diminished breath sounds at the base. ABDOMEN: Soft, nontender to palpation without rebound or guarding. EXTREMITIES: Negative for clubbing, cyanosis. No edema. DERMATOLOGIC: No rashes. MUSCULOSKELETAL: No joint effusion. NEUROLOGIC: No change in exam. MEDICATIONS: The patient's medications have been reviewed. LABORATORY DATA: Has been reviewed. IMAGING STUDIES: The images studies have been reviewed. ASSESSMENT AND PLAN: 1. Nonoliguric acute kidney injury with previous baseline creatinine 1.0 mg/dL. Etiology of acute k idney injury is secondary to shock ATN. The patient appears to be in slow recovery phase of acute tu bular necrosis. Continue to monitor. 2. Volume overload. Etiology is multifactorial secondary to acute kidney injury. Continue current diuretic regimen. Continue metolazone. Continue loop diuretics. 3. Hypernatremia. The patient has a free water deficit of approximately 2 liters. We will start th e patient on D5 water. Continue free water flushes. 4. Hypokalemia. Continue to monitor and replete as needed. 5. Metabolic acidosis. Continue to monitor. 6. Anemia. Monitor hemoglobin and hematocrit levels. 7. Mineral bone disorder, monitor calcium and phosphorus levels. 8. Sepsis status post shock secondary to urinary tract infection. Continue current antibiotic regim en. 9. Dysphagia. Continue tube feeding. 10. Acute and chronic encephalopathy. 11. History of brain tumor. Dictated By: ZAYDA LUCIANO DO NR/NTS Conf#: [id number] DID#: [id number] CC: ELIOT GALEAS MD; EVA BURGESS MD; CELINA HANCOCK MD;*EndCC*
[2018-11-15] MEDS: MULTIVITAMINS 30 ML CUP GTB SCH (10:07)
[2018-11-15] MEDS: MEROPENEM 500MG/50 ML (PMX) 50 ML IVPB SCH (10:08)
[2018-11-15] MEDS: LACTOBACILLUS RHAMNOSUS CAP GTB SCH (10:08)
[2018-11-15] MEDS: MIDODRINE 5 MG TAB NGT SCH ×3 (10:08→18:31)
[2018-11-15] MEDS: AMIODARONE 200 MG TAB GTB SCH (10:09)
[2018-11-15] MEDS: ZINC SULFATE 220 MG CAP GTB SCH (10:09)
[2018-11-15] MEDS: ASCORBIC ACID 500 MG TAB GTB SCH (10:09)
[2018-11-15] MEDS: BALSAM PERU/CASTOR OIL 60 GM TUBE TOP SCH (10:10)
[2018-11-15] MEDS: DAKINS 0.0125%(1/40) 473 ML SOLUTION TP SCH (10:10)
[2018-11-15] MEDS: COLLAGENASE 5 GM (UD JAR) TOP SCH (10:10)
[2018-11-15] MEDS: ARTIFICIAL TEARS 15 ML OPH BOTH EYES SCH ×2 (10:10→12:56)
[2018-11-15] MEDS: FUROSEMIDE 40 MG INJ IV SCH (10:12)
[2018-11-15] MEDS ORDERED: SOD CHLORIDE 0.9% 500 ML IV ONE (11:00)
[2018-11-15] MEDS ORDERED: MAGNESIUM SULFATE 1 GM/D5W 100 ML IVPB ONE (11:00)
--- NOTE | 2018-11-15 11:03 | PN ---
Date/Time of Note Date/Time of Note DATE: 11/15/18 TIME: 10:52 Assessment/Plan VTE Prophylaxis Risk score (from Ns)>0 risk: 17 SCD applied (from Ns): Yes Pharmacological prophylaxis: NA/contraindicated Pharm contraindication: thrombocytopenia Lines/Catheters IV Catheter Type (from Nrsg): Central Line Central line still needed: Yes Urinary Cath still in place: Yes Reason Cath still needed: terminal illness/intractable pain Assessment/Plan Hospital Course Objective: Constitutional: non-verbal, other (cachetic , elderly, Patient unresponsive, no t following commands or tracking), Obtunded , No oriented, Psych: other (unable to assess) Head: normocephalic, atraumatic Eyes: PERRL, No icteric ENMT: trach to vent No mucosa pink and moist (dry), mouth open Respiratory: diminished breath sounds, No labored breathing Cardiovascular: regular rate and rhythm, No murmurs/extra sounds Gastrointestinal: soft, non-tender, bowel sounds, other (PEG tube noted with no cellulitis or discharge) Genitourinary - male: nl external genitalia, lugo Extremities: R side: Chronically contracted on the R paresis minimal L foot withdrawal with stimulation Neurological: altered, eyes no longer open No nl mental status, No nl speech, No nl strength Assessment and plan: 82-year-old male chronically encephalopathic from records, it seems this was secondary to 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 The patient is also said to have had a CVA in the past. Is currently managed as follows: 1. Severe sepsis with shock thought to be secondary to bilateral pneumonia and UTI -Urine cultures growing Wandy -Endotracheal cultures growing pesudomonas and K Penumo esbl -Id managing abx, appreciate input 2. Septic shock -shock resolved, now off pressors 3. Acute renal insufficiency with associated metabolic acidosis -Per nephrology, baseline creatinine is actually 1.0. Patient remains on bicarb drip for acidosis. 4. Paroxysmal atrial fibrillation currently rate controlled -Patient having episodes of arrhythmia and mild bradycardia -Patient on amiodarone for tachycardia, cardiology is not actually on the case, however heart rate is stable now, continue monitoring -Keep mag greater than 2.0 and potassium greater than 4 -Cardiology consult if indicated 5. Recent C. difficile colitis as well as DVT, September 2018 -Patient is not on aggressive DVT treatment due to recent craniotomy, but has been cleared for DVT prophylaxis by neurology -We will have family contact surgeon who did the original surgery to see if we can treat DVT at this time 6. Chronic ventilator dependent respiratory failure status post trach -Continue ventilator management 7. Hx of bran tumor s/p craniotomy about 3 months ago and prev CVA with chronic encephalopathy -family has noted minimal improvements in the last 3months, patient is moving LUE a bit and opens eyes spontaneously -Family has been updated that patient is likely never going to have sig nificant recovery 8. Chronic neurogenic dysphagia on tube feedings -Nursing had verbalized concern for G-tube leakage, GI consult obtained, appreciate input -Patient plan for KUB to evaluate G-tube placement 9. Chronic cardiomyopathy with last known EF of 35% 10 Poorly controlled hypothyroidism -continue Synthroid. 11. Chronic hypochromic anemia -Transfused 1 unit of packed red cells so far this admission, hemoglobin dropped again to 7.3 12. Thrombocytopenia -Likely consumptive, No evidence of bleeding at this time, hold heparin Plan: Patient is clinically stable. Bioethics meeting with family today at noon. Plan to discharge back to snf after. Plans may change depending on outcome of the meeting. November 11, 2018: Had an extensive discussion with the patient's daughter, bedside nurse, social and human services assistant, and patient's son via telephone. Patient's son was not receptive to any discussion about palliative care. Patient's daughter verbalized frustration and understanding that her father was suffering, but was frustrated at her brother's refusal to see it. She became tearful multiple times during the conversation. I also explained extensively the futility of further medical care. Patient's daughter verbalized understanding, but patient's son was adamant about not wanting to discuss anything pertaining to possible palliative care. Patient's is the legal decision maker, however per patient's daughter, she defers to her son. At this point I think bioethics consultation is warranted, to assist the family and myself in determining how to proceed further. It is my medical opinion that further aggressive care in this patient is futile. It will not prolong patient's life, it will not improve his quality of life. Patient is fully appropriate for comfort measures and patient is visibly suffering. However in the interim, in keeping with patient's family wishes, we will continue current care as defined above. Result Diagram: 11/15/18 0614 11/15/18 0615 Results 24hrs Laboratory Tests Test 11/14/18 13:11 11/14/18 16:43 11/14/18 21:37 11/14/18 22:02 Bedside Glucose 82 70 59 L 169 Test 11/14/18 22:21 11/15/18 01:20 11/15/18 04:49 11/15/18 05:00 Bedside Glucose 130 89 81 Blood Gas Specimen Blood arterial Source Arterial Blood 11/15/2018 5:00:26 Date Drawn AM Arterial Blood pH 7.388 (Temp corrected) Arterial Blood 28.2 L pCO2 (Temp correct) Arterial Blood pO2 136.6 H (Temp corrected) Arterial Blood 16.6 L HCO3 Arterial Blood -7.3 L Base Excess Arterial Blood 98.7 Oxygen Saturation Jeff Test N/A Arterial Blood Gas LB Puncture Site Arterial 0.4 Blood Carboxyhemog lobin Arterial Blood 0.5 Methemoglobin Blood Gas A-a O2 44.2 H Differential Oxyhemoglobin 97.8 Percent Blood Gas 37.0 Temperature Blood Gas 12.0 Respiration Rate Blood Gas Actual 32 Respiration Rate Blood Gas Modality VENT - AC FiO2 30.0 Blood Gas Tidal 400.0 Volume Blood Gas Low PEEP 0 Setting Blood Gas Notified UP Whom Blood Gas Notified 11/15/2018 5:19:53 Time AM Test 11/15/18 06:14 11/15/18 06:15 11/15/18 10:05 White Blood Count 11.0 #H Red Blood Count 2.97 L Hemoglobin 8.1 L Hematocrit 27.3 L Mean Corpuscular 91.9 Volume Mean Corpuscular 27.3 L Hemoglobin Mean Corpuscular 29.7 L Hemoglobin Concent Red Cell 26.1 H Distribution Width Platelet Count 64 L Mean Platelet 11.6 H Volume Immature 0.500 H Granulocytes % Neutrophils % 28.9 L Lymphocytes % 51.6 H Monocytes % 12.6 H Eosinophils % 5.7 Basophils % 0.7 Nucleated Red 0.4 H Blood Cells % Immature 0.060 H Granulocytes # Neutrophils # 3.2 Lymphocytes # 5.7 H Monocytes # 1.4 H Eosinophils # 0.6 H Basophils # 0.1 Nucleated Red 0.0 Blood Cells # Sodium Level 149 H Potassium Level 3.5 Chloride Level 126 H Carbon Dioxide 17 L Level Anion Gap 6 Blood Urea 9 Nitrogen Creatinine 2.14 H Est Glomerular Filtrat Rate mL/min Glucose Level 84 Lactic Acid Level 2.1 *H Calcium Level 8.0 L Phosphorus Level 3.3 Magnesium Level 1.7 Bedside Glucose 74 Subjective 24 Hr Interval Summary Subjective hx not possible: pt non-verbal Exam/Review of Systems Exam Vitals Vital Signs Date Temp Pulse Resp B/P (MAP) Pulse Ox O2 O2 Flow FiO2 Time Delivery Rate 11/15/18 98.0 73 20 144/60 93 07:44 (88) 11/15/18 30 05:46 11/14/18 Mechanical 15:29 Ventilator Trach Collar Intake and Output 11/14/18 11/14/18 11/15/18 1515:00 23:00 07:00 IntakeIntake Total 140 ml 690 ml OutputOutput Total 1490 ml 700 ml BalanceBalance -1350 ml -10 ml Results Results 24hrs Laboratory Tests Test 11/14/18 13:11 11/14/18 16:43 11/14/18 21:37 11/14/18 22:02 Bedside Glucose 82 70 59 L 169 Test 11/14/18 22:21 11/15/18 01:20 11/15/18 04:49 11/15/18 05:00 Bedside Glucose 130 89 81 Blood Gas Specimen Blood arterial Source Arterial Blood 11/15/2018 5:00:26 Date Drawn AM Arterial Blood pH 7.388 (Temp corrected) Arterial Blood 28.2 L pCO2 (Temp correct) Arterial Blood pO2 136.6 H (Temp corrected) Arterial Blood 16.6 L HCO3 Arterial Blood -7.3 L Base Excess Arterial Blood 98.7 Oxygen Saturation Jeff Test N/A Arterial Blood Gas LB Puncture Site Arterial 0.4 Blood Carboxyhemog lobin Arterial Blood 0.5 Methemoglobin Blood Gas A-a O2 44.2 H Differential Oxyhemoglobin 97.8 Percent Blood Gas 37.0 Temperature Blood Gas 12.0 Respiration Rate Blood Gas Actual 32 Respiration Rate Blood Gas Modality VENT - AC FiO2 30.0 Blood Gas Tidal 400.0 Volume Blood Gas Low PEEP 0 Setting Blood Gas Notified UP Whom Blood Gas Notified 11/15/2018 5:19:53 Time AM Test 11/15/18 06:14 11/15/18 06:15 11/15/18 10:05 White Blood Count 11.0 #H Red Blood Count 2.97 L Hemoglobin 8.1 L Hematocrit 27.3 L Mean Corpuscular 91.9 Volume Mean Corpuscular 27.3 L Hemoglobin Mean Corpuscular 29.7 L Hemoglobin Concent Red Cell 26.1 H Distribution Width Platelet Count 64 L Mean Platelet 11.6 H Volume Immature 0.500 H Granulocytes % Neutrophils % 28.9 L Lymphocytes % 51.6 H Monocytes % 12.6 H Eosinophils % 5.7 Basophils % 0.7 Nucleated Red 0.4 H Blood Cells % Immature 0.060 H Granulocytes # Neutrophils # 3.2 Lymphocytes # 5.7 H Monocytes # 1.4 H Eosinophils # 0.6 H Basophils # 0.1 Nucleated Red 0.0 Blood Cells # Sodium Level 149 H Potassium Level 3.5 Chloride Level 126 H Carbon Dioxide 17 L Level Anion Gap 6 Blood Urea 9 Nitrogen Creatinine 2.14 H Est Glomerular Filtrat Rate mL/min Glucose Level 84 Lactic Acid Level 2.1 *H Calcium Level 8.0 L Phosphorus Level 3.3 Magnesium Level 1.7 Bedside Glucose 74 Medications Medication Current Medications Ondansetron HCl (Zofran Inj) 4 mg Q6H PRN IV NAUSEA AND/OR VOMITING; Start 11/07/18 at 20:00 Albuterol (Ventolin Hfa) 4 puff Q2H RESP THERAPY PRN INH SHORTNESS OF BREATH; Start 11/07/18 at 20:00 Ipratropium [place] (Atrovent Hfa) 4 puff Q2H RESP THERAPY PRN INH SHORTNESS OF BREATH; Start 11/07/18 at 20:00 Acetaminophen (Tylenol Liquid) 650 mg Q4H PRN GTB MILD PAIN LEVEL 1-3; Start 11/08/18 at 03:30 Ascorbic Acid (Vitamin C) 500 mg DAILY GTB Last administered on 11/15/18at 10:09; Admin Dose 500 MG; Start 11/08/18 at 09:00 Epoetin Adrian-epbx (Retacrit (Esrd)) 8,000 unit MONWEDFRI@1700 SC Last administered on 11/12/18at 17:35; Admin Dose 8,000 UNIT; Start 11/08/18 at 17:00 Al Hydrox/Mg Hydrox/Simethicone (Mag-Al Plus) 30 ml Q4H PRN GTB GASTROINTESTINAL UPSET; Start 11/08/18 at 03:30 Sodium Biphosphate/ Sodium Phosphate (Fleet Enema) 133 ml DAILY PRN [place] CONSTIPATION; Start 11/08/18 at 03:30 Ondansetron HCl (Zofran Tab) 4 mg Q6H PRN GTB NAUSEA AND/OR VOMITING; Start 11/08/18 at 03:30 Eye Lubricant (Artificial Tears Oph) 1 drop TID BOTH EYES Last administered on 11/15/18 10:10; Admin Dose 1 DROP; Start 11/08/18 at 09:00 Tramadol HCl (Ultram) 50 mg BID PRN GTB PAIN; Start 11/08/18 at 03:30 Zinc Sulfate (Zinc Sulfate) 220 mg DAILY GTB Last administered on 11/15/18 10:09; Admin Dose 220 MG; Start 11/08/18 at 09:00 Amiodarone HCl (Cordarone) 200 mg DAILY GTB Last administered on 11/15/18 10:09; Admin Dose 200 MG; Start 11/08/18 at 09:00 Lactobacillus Acidophilus/ Rhamnosus (Culturelle) 1 cap BID GTB Last administered on 11/15/18 10:08; Admin Dose 1 CAP; Start 11/08/18 at 09:00 Lansoprazole (Prevacid) 30 mg DAILY@06 GTB Last administered on 11/15/18 04:59; Admin Dose 30 MG; Start 11/08/18 at 06:00 Levothyroxine Sodium (Synthroid) 125 mcg BEFORE BREAKFAST GTB Last administered on 11/15/18 05:00; Admin Dose 125 MCG; Start 11/09/18 at 07:00 Heparin Sodium (Porcine) (Heparin (5000 Units/1ml)) 5,000 unit BID SC Last administered on 11/12/18 08:40; Admin Dose 5,000 UNIT; Start 11/08/18 at 21:00; Status Hold Multivitamins (Multivitamin) 30 ml DAILY GTB Last administered on 11/15/18 10:07; Admin Dose 30 ML; Start 11/09/18 at 10:00 Caspofungin 50 mg/ Sodium Chloride 250 ml @ 250 mls/hr Q24H IVPB Last administered on 11/14/18 14:10; Admin Dose 250 MLS/HR; Start 11/10/18 at 13:00 Meropenem/Sodium Chloride 50 ml @ 100 mls/hr Q12 IVPB Last administered on 11/15/18 10:08; Admin Dose 100 MLS/HR; Start 11/09/18 at 21:00 Sodium Hypochlorite (Dakins Diluted (40)) 1 applic DAILY TP Last administered on 11/15/18 10:10; Admin Dose 1 APPLIC; Start 11/09/18 at 21:00 Collagenase (Santyl) This patient yen... DAILY TOP Last administered on 11/15/18 10:10; Admin Dose 1 APPLIC; Start 11/10/18 at 10:00 Insulin Aspart (Novolog Insulin Pen) NOVOLOG *MILD* ALGORI... Q4 SC ; Start 11/11 at 01:00 Dextrose (D50w Syringe) 50 ml PRN PRN IV DECREASED GLUCOSE Last administered on 11/14/18 21:45; Admin Dose 50 ML; Start 11/11/18 at 00:30 Midodrine (Proamatine) 5 mg TID@09,13,17 NGT Last administered on 11/15/18 10:08; Admin Dose 5 MG; Start 11/12/18 at 09:24 Metoclopramide HCl (Reglan) 5 mg Q6 IV Last administered on 11/15/18 05:00; Admin Dose 5 MG; Start 11/12/18 at 18:00 Furosemide (Lasix) 40 mg DAILY IV Last administered on 11/15/18 10:12; Admin Dose 40 MG; Start 11/13/18 at 09:00 Loperamide HCl (Imodium 1mg/5ml (10 ml Cup)) 2 mg QID PRN GTB DIARRHEA Last administered on 11/13/18 14:21; Admin Dose 2 MG; Start 11/13/18 at 14:00 Magnesium Hydroxide (Milk Of Mag) 30 ml DAILY PRN GTB CONSTIPATION; Start 11/14/18 at 07:00 Dextrose 1,000 ml @ 50 mls/hr Q20H IV Last administered on 11/15/18 10:35; Admin Dose 50 MLS/HR; Start 11/15/18 at 08:00 KYLE SEVERINO Nov 15, 2018 11:03
--- NOTE | 2018-11-15 11:28 | CONS ---
Consultation Date/Type/Reason Admit Date/Time Nov 07, 2018 at 18:54 Initial Consult Date 11/08/18 Type of Consult Pulmonary/critical care Patient is an 83-year-old male with a history of chronic respiratory failure which is ventilator dependent admitted for sepsis. Patient has been adequately fluid resuscitated and started on appropriate antimicrobial regimen. Patient still remains hypotensive requiring Levophed. Patient does have history of advanced dementia and was unable to give any history by himself whatsoever. Patient however did not appear to be in any distress. Past medical history; 1. History of dementia with a history of brain tumor. 2. VDRF. 3. History of tracheostomy and G-tube placement. 4. History of DVT. 5. History of paroxysmal atrial fibrillation. 6. History of hypothyroidism. Medications; reviewed. Allergies; none. Social history, family history, occupational histories are not available. Review of system; unable to be obtained. General exam; elderly male, on ventilator via tracheostomy, awake but noncommunicative. Currently in no distress. Requesting Provider: KYLE SEVERINO Date/Time of Note DATE: 11/15/18 TIME: 11:26 24 HR Interval Summary Free Text/Dictation Patient's condition is stable. Has remained hemodynamically stable. General exam; elderly male, on ventilator via tracheostomy, noncommunicative. Currently in no distress. HEENT in exam; supple neck, no JVD. No lymphadenopathy. Midline trachea. No thyromegaly. Patient has tracheostomy in place. Chest exam; diminished breath sounds bilaterally. S1-S2 audible, no murmurs. Regular rhythm. Abdomen exam; soft, nondistended. No organomegaly. G-tube in place. Bowel sounds are audible. Extremity exam; no peripheral edema. Patient has a flexion contractures. CANNERY WORKER exam; patient remains noncommunicative. Ventilator setting; AC of 12, tidal volume 450, PEEP of 0, 30% FiO2. Assessment and recommendations; next 1. Patient with history of chronic encephalopathy with history of brain tumor admitted to ICU because of sepsis and pneumonia with interval clinical and radiological improvement. 2. History of DVT. 3. Renal insufficiency. 4. Anemia and severe thrombocytopenia. 5. Mild hypernatremia. Continue supportive care. Overall prognosis is poor. Exam/Review of Systems Exam Vitals Vital Signs Date Temp Pulse Resp B/P (MAP) Pulse Ox O2 O2 Flow FiO2 Time Delivery Rate 11/15/18 98.0 73 20 144/60 93 07:44 (88) 11/15/18 30 05:46 11/14/18 Mechanical 15:29 Ventilator Trach Collar Intake and Output 11/14/18 11/14/18 11/15/18 1515:00 23:00 07:00 IntakeIntake Total 140 ml 690 ml OutputOutput Total 1490 ml 700 ml BalanceBalance -1350 ml -10 ml Results Result Diagram: 11/15/18 0614 11/15/18 0615 Results 24hrs Laboratory Tests Test 11/14/18 13:11 11/14/18 16:43 11/14/18 21:37 11/14/18 22:02 Bedside Glucose 82 70 59 L 169 Test 11/14/18 22:21 11/15/18 01:20 11/15/18 04:49 11/15/18 05:00 Bedside Glucose 130 89 81 Blood Gas Specimen Blood arterial Source Arterial Blood 11/15/2018 5:00:26 Date Drawn AM Arterial Blood pH 7.388 (Temp corrected) Arterial Blood 28.2 L pCO2 (Temp correct) Arterial Blood pO2 136.6 H (Temp corrected) Arterial Blood 16.6 L HCO3 Arterial Blood -7.3 L Base Excess Arterial Blood 98.7 Oxygen Saturation Jeff Test N/A Arterial Blood Gas LB Puncture Site Arterial 0.4 Blood Carboxyhemog lobin Arterial Blood 0.5 Methemoglobin Blood Gas A-a O2 44.2 H Differential Oxyhemoglobin 97.8 Percent Blood Gas 37.0 Temperature Blood Gas 12.0 Respiration Rate Blood Gas Actual 32 Respiration Rate Blood Gas Modality VENT - AC FiO2 30.0 Blood Gas Tidal 400.0 Volume Blood Gas Low PEEP 0 Setting Blood Gas Notified UP Whom Blood Gas Notified 11/15/2018 5:19:53 Time AM Test 11/15/18 06:14 11/15/18 06:15 11/15/18 10:05 White Blood Count 11.0 #H Red Blood Count 2.97 L Hemoglobin 8.1 L Hematocrit 27.3 L Mean Corpuscular 91.9 Volume Mean Corpuscular 27.3 L Hemoglobin Mean Corpuscular 29.7 L Hemoglobin Concent Red Cell 26.1 H Distribution Width Platelet Count 64 L Mean Platelet 11.6 H Volume Immature 0.500 H Granulocytes % Neutrophils % 28.9 L Lymphocytes % 51.6 H Monocytes % 12.6 H Eosinophils % 5.7 Basophils % 0.7 Nucleated Red 0.4 H Blood Cells % Immature 0.060 H Granulocytes # Neutrophils # 3.2 Lymphocytes # 5.7 H Monocytes # 1.4 H Eosinophils # 0.6 H Basophils # 0.1 Nucleated Red 0.0 Blood Cells # Sodium Level 149 H Potassium Level 3.5 Chloride Level 126 H Carbon Dioxide 17 L Level Anion Gap 6 Blood Urea 9 Nitrogen Creatinine 2.14 H Est Glomerular Filtrat Rate mL/min Glucose Level 84 Lactic Acid Level 2.1 *H Calcium Level 8.0 L Phosphorus Level 3.3 Magnesium Level 1.7 Bedside Glucose 74 Medications Medication Current Medications Ondansetron HCl (Zofran Inj) 4 mg Q6H PRN IV NAUSEA AND/OR VOMITING; Start 11/07/18 at 20:00 Albuterol (Ventolin Hfa) 4 puff Q2H RESP THERAPY PRN INH SHORTNESS OF BREATH; Start 11/07/18 at 20:00 Ipratropium [place] (Atrovent Hfa) 4 puff Q2H RESP THERAPY PRN INH SHORTNESS OF BREATH; Start 11/07/18 at 20:00 Acetaminophen (Tylenol Liquid) 650 mg Q4H PRN GTB MILD PAIN LEVEL 1-3; Start 11/08/18 at 03:30 Ascorbic Acid (Vitamin C) 500 mg DAILY GTB Last administered on 11/15/18at 10:09; Admin Dose 500 MG; Start 11/08/18 at 09:00 Epoetin Adrian-epbx (Retacrit (Esrd)) 8,000 unit MONWEDFRI@1700 SC Last administered on 11/12/18at 17:35; Admin Dose 8,000 UNIT; Start 11/08/18 at 17:00 Al Hydrox/Mg Hydrox/Simethicone (Mag-Al Plus) 30 ml Q4H PRN GTB GASTROINTESTINAL UPSET; Start 11/08/18 at 03:30 Sodium Biphosphate/ Sodium Phosphate (Fleet Enema) 133 ml DAILY PRN RI CONSTIPATION; Start 11/08/18 at 03:30 Ondansetron HCl (Zofran Tab) 4 mg Q6H PRN GTB NAUSEA AND/OR VOMITING; Start at 03:30 Eye Lubricant (Artificial Tears Oph) 1 drop TID BOTH EYES Last administered on 11/15/18 10:10; Admin Dose 1 DROP; Start 11/08/18 at 09:00 Tramadol HCl (Ultram) 50 mg BID PRN GTB PAIN; Start 11/08/18 at 03:30 Zinc Sulfate (Zinc Sulfate) 220 mg DAILY GTB Last administered on 11/15/18 10:09; Admin Dose 220 MG; Start 11/08/18 at 09:00 Amiodarone HCl (Cordarone) 200 mg DAILY GTB Last administered on 11/15/18 10:09; Admin Dose 200 MG; Start 11/08/18 at 09:00 Lactobacillus Acidophilus/ Rhamnosus (Culturelle) 1 cap BID GTB Last administered on 11/15/18 10:08; Admin Dose 1 CAP; Start 11/08/18 at 09:00 Lansoprazole (Prevacid) 30 mg DAILY@06 GTB Last administered on 11/15/18 04:59; Admin Dose 30 MG; Start 11/08/18 at 06:00 Levothyroxine Sodium (Synthroid) 125 mcg BEFORE BREAKFAST GTB Last administered on 11/15/18 05:00; Admin Dose 125 MCG; Start 11/09/18 at 07:00 Heparin Sodium (Porcine) (Heparin (5000 Units/1ml)) 5,000 unit BID SC Last administered on 11/12/18 08:40; Admin Dose 5,000 UNIT; Start 11/08/18 at 21:00; Status Hold Multivitamins (Multivitamin) 30 ml DAILY GTB Last administered on 11/15/18 10:07; Admin Dose 30 ML; Start 11/09/18 at 10:00 Caspofungin 50 mg/ Sodium Chloride 250 ml @ 250 mls/hr Q24H IVPB Last administered on 11/14/18 14:10; Admin Dose 250 MLS/HR; Start 11/10/18 at 13:00 Meropenem/Sodium Chloride 50 ml @ 100 mls/hr Q12 IVPB Last administered on 11/15/18 10:08; Admin Dose 100 MLS/HR; Start 11/09/18 at 21:00 Sodium Hypochlorite (Dakins Diluted ()) 1 applic DAILY TP Last administered on 8/5/19at 10:10; Admin Dose 1 APPLIC; Start 11/09/18 at 21:00 Collagenase (Santyl) This patient yen... DAILY TOP Last administered on 11/15/18at 10:10; Admin Dose 1 APPLIC; Start 11/10/18 at 10:00 Insulin Aspart (Novolog Insulin Pen) NOVOLOG *MILD* ALGORI... Q4 SC ; Start 11/11/18 at 01:00 Dextrose (D50w Syringe) 50 ml PRN PRN IV DECREASED GLUCOSE Last administered on 11/14/18at 21:45; Admin Dose 50 ML; Start 11/11/18 at 00:30 Midodrine (Proamatine) 5 mg TID@09,13,17 NGT Last administered on 11/15/18 10:08; Admin Dose 5 MG; Start 11/12/18 at 09:24 Metoclopramide HCl (Reglan) 5 mg Q6 IV Last administered on 11/15/18 05:00; Admin Dose 5 MG; Start 11/12/18 at 18:00 Furosemide (Lasix) 40 mg DAILY IV Last administered on 11/15/18at 10:12; Admin Dose 40 MG; Start 11/13/18 at 09:00 Loperamide HCl (Imodium 1mg/5ml (10 ml Cup)) 2 mg QID PRN GTB DIARRHEA Last administered on 11/13/18at 14:21; Admin Dose 2 MG; Start 11/13/18 at 14:00 Magnesium Hydroxide (Milk Of Mag) 30 ml DAILY PRN GTB CONSTIPATION; Start 11/14/18 at 07:00 Dextrose 1,000 ml @ 50 mls/hr Q20H IV Last administered on 11/15/18at 10:35; Admin Dose 50 MLS/HR; Start 11/15/18 at 08:00 Sodium Chloride 500 ml @ 500 mls/hr Q1H ONCE IV ; Start 11/15/18 at 11:00; Stop 11/15/18 at 11:59 Magnesium Sulfate/ Dextrose 100 ml @ 100 mls/hr ONCE ONCE IVPB ; Start 11/15/18 at 11:00; Stop 11/15/18 at 11:59 Magnesium Oxide (Mag-Ox 400) 400 mg BID NGT ; Start 11/16/18 at 09:00 SADI BERGER Nov 15, 2018 11:28
--- NOTE | 2018-11-15 12:41 | PN ---
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 Grace Subjective: Patient out of ICU- no acute distress. pt with concerns for TF absorption. TF has been changed. PHYSICAL EXAMINATION: GENERAL: ill appearing male, trached, in no acute distress SKIN: No lesions HEAD: Normocephalic, atraumatic, no tenderness. EYES: Pupils equal reactive to light, non-icteric, no discharge. EARS/NOSE AND THROAT: Ears normal, nose normal NECK: Supple, no masses CHEST: Inspection within normal limits. CARDIOVASCULAR: Heart: Regular rate and rhythm RESPIRATORY: Lungs clear to auscultation GASTROINTESTINAL AND LIVER: Abdomen: Soft, G-tube in place, non tenderness, non- distended, no guarding, no rebound tenderness, normoactive bowel sounds. Rectal: Deferred. rectal tube- with yellowish output GENITOURINARY: Male genitalia within normal limits. Mcintyre catheter in place EXTREMITIES: No cyanosis, clubbing or edema. Result Diagram: 11/15/18 0614 11/15/18 0615 Results 24hrs Laboratory Tests Test 11/14/18 13:11 11/14/18 16:43 11/14/18 21:37 11/14/18 22:02 Bedside Glucose 82 70 59 L 169 Test 11/14/18 22:21 11/15/18 01:20 11/15/18 04:49 8/5/19 05:00 Bedside Glucose 130 89 81 Blood Gas Specimen Blood arterial Source Arterial Blood 11/15/2018 5:00:26 Date Drawn AM Arterial Blood pH 7.388 (Temp corrected) Arterial Blood 28.2 L pCO2 (Temp correct) Arterial Blood pO2 136.6 H (Temp corrected) Arterial Blood 16.6 L HCO3 Arterial Blood -7.3 L Base Excess Arterial Blood 98.7 Oxygen Saturation Jeff Test N/A Arterial Blood Gas LB Puncture Site Arterial 0.4 Blood Carboxyhemog lobin Arterial Blood 0.5 Methemoglobin Blood Gas A-a O2 44.2 H Differential Oxyhemoglobin 97.8 Percent Blood Gas 37.0 Temperature Blood Gas 12.0 Respiration Rate Blood Gas Actual 32 Respiration Rate Blood Gas Modality VENT - AC FiO2 30.0 Blood Gas Tidal 400.0 Volume Blood Gas Low PEEP 0 Setting Blood Gas Notified UP Whom Blood Gas Notified 11/15/2018 5:19:53 Time AM Test 11/15/18 06:14 11/15/18 06:15 11/15/18 10:05 White Blood Count 11.0 #H Red Blood Count 2.97 L Hemoglobin 8.1 L Hematocrit 27.3 L Mean Corpuscular 91.9 Volume Mean Corpuscular 27.3 L Hemoglobin Mean Corpuscular 29.7 L Hemoglobin Concent Red Cell 26.1 H Distribution Width Platelet Count 64 L Mean Platelet 11.6 H Volume Immature 0.500 H Granulocytes % Neutrophils % 28.9 L Lymphocytes % 51.6 H Monocytes % 12.6 H Eosinophils % 5.7 Basophils % 0.7 Nucleated Red 0.4 H Blood Cells % Immature 0.060 H Granulocytes # Neutrophils # 3.2 Lymphocytes # 5.7 H Monocytes # 1.4 H Eosinophils # 0.6 H Basophils # 0.1 Nucleated Red 0.0 Blood Cells # Sodium Level 149 H Potassium Level 3.5 Chloride Level 126 H Carbon Dioxide 17 L Level Anion Gap 6 Blood Urea 9 Nitrogen Creatinine 2.14 H Est Glomerular Filtrat Rate mL/min Glucose Level 84 Lactic Acid Level 2.1 *H Calcium Level 8.0 L Phosphorus Level 3.3 Magnesium Level 1.7 Bedside Glucose 74 Exam/Review of Systems Exam Vitals Vital Signs Date Temp Pulse Resp B/P (MAP) Pulse Ox O2 O2 Flow FiO2 Time Delivery Rate 11/15/18 98.0 88 20 121/79 93 11:25 (93) 11/15/18 30 05:46 11/14/18 Mechanical 15:29 Ventilator Trach Collar Intake and Output 11/14/18 11/14/18 11/15/18 1515:00 23:00 07:00 IntakeIntake Total 140 ml 690 ml OutputOutput Total 1490 ml 700 ml BalanceBalance -1350 ml -10 ml Results Results 24hrs Laboratory Tests Test 11/14/18 13:11 11/14/18 16:43 11/14/18 21:37 11/14/18 22:02 Bedside Glucose 82 70 59 L 169 Test 11/14/18 22:21 11/15/18 01:20 11/15/18 04:49 11/15/18 05:00 Bedside Glucose 130 89 81 Blood Gas Specimen Blood arterial Source Arterial Blood 11/15/2018 5:00:26 Date Drawn AM Arterial Blood pH 7.388 (Temp corrected) Arterial Blood 28.2 L pCO2 (Temp correct) Arterial Blood pO2 136.6 H (Temp corrected) Arterial Blood 16.6 L HCO3 Arterial Blood -7.3 L Base Excess Arterial Blood 98.7 Oxygen Saturation Jeff Test N/A Arterial Blood Gas LB Puncture Site Arterial 0.4 Blood Carboxyhemog lobin Arterial Blood 0.5 Methemoglobin Blood Gas A-a O2 44.2 H Differential Oxyhemoglobin 97.8 Percent Blood Gas 37.0 Temperature Blood Gas 12.0 Respiration Rate Blood Gas Actual 32 Respiration Rate Blood Gas Modality VENT - AC FiO2 30.0 Blood Gas Tidal 400.0 Volume Blood Gas Low PEEP 0 Setting Blood Gas Notified UP Whom Blood Gas Notified 11/15/2018 5:19:53 Time AM Test 11/15/18 06:14 11/15/18 06:15 11/15/18 10:05 White Blood Count 11.0 #H Red Blood Count 2.97 L Hemoglobin 8.1 L Hematocrit 27.3 L Mean Corpuscular 91.9 Volume Mean Corpuscular 27.3 L Hemoglobin Mean Corpuscular 29.7 L Hemoglobin Concent Red Cell 26.1 H Distribution Width Platelet Count 64 L Mean Platelet 11.6 H Volume Immature 0.500 H Granulocytes % Neutrophils % 28.9 L Lymphocytes % 51.6 H Monocytes % 12.6 H Eosinophils % 5.7 Basophils % 0.7 Nucleated Red 0.4 H Blood Cells % Immature 0.060 H Granulocytes # Neutrophils # 3.2 Lymphocytes # 5.7 H Monocytes # 1.4 H Eosinophils # 0.6 H Basophils # 0.1 Nucleated Red 0.0 Blood Cells # Sodium Level 149 H Potassium Level 3.5 Chloride Level 126 H Carbon Dioxide 17 L Level Anion Gap 6 Blood Urea 9 Nitrogen Creatinine 2.14 H Est Glomerular Filtrat Rate mL/min Glucose Level 84 Lactic Acid Level 2.1 *H Calcium Level 8.0 L Phosphorus Level 3.3 Magnesium Level 1.7 Bedside Glucose 74 Medications Medication Current Medications Ondansetron HCl (Zofran Inj) 4 mg Q6H PRN IV NAUSEA AND/OR VOMITING; Start 11/07/18 at 20:00 Albuterol (Ventolin Hfa) 4 puff Q2H RESP THERAPY PRN INH SHORTNESS OF BREATH; Start 11/07/18 at 20:00 Ipratropium [place] (Atrovent Hfa) 4 puff Q2H RESP THERAPY PRN INH SHORTNESS OF BREATH; Start 11/07/18 at 20:00 Acetaminophen (Tylenol Liquid) 650 mg Q4H PRN GTB MILD PAIN LEVEL 1-3; Start 11/08/18 at 03:30 Ascorbic Acid (Vitamin C) 500 mg DAILY GTB Last administered on 11/15/18at 10:09; Admin Dose 500 MG; Start 11/08/18 at 09:00 Epoetin Adrian-epbx (Retacrit (Esrd)) 8,000 unit MONWEDFRI@1700 SC Last administered on 11/12/18at 17:35; Admin Dose 8,000 UNIT; Start 11/08/18 at 17:00 Al Hydrox/Mg Hydrox/Simethicone (Mag-Al Plus) 30 ml Q4H PRN GTB GASTROINTESTINAL UPSET; Start 11/08/18 at 03:30 Sodium Biphosphate/ Sodium Phosphate (Fleet Enema) 133 ml DAILY PRN [place] CONSTIPATION; Start 11/08/18 at 03:30 Ondansetron HCl (Zofran Tab) 4 mg Q6H PRN GTB NAUSEA AND/OR VOMITING; Start 11/08/18 at 03:30 Eye Lubricant (Artificial Tears Oph) 1 drop TID BOTH EYES Last administered on 11/15/18at 10:10; Admin Dose 1 DROP; Start 11/08/18 at 09:00 Tramadol HCl (Ultram) 50 mg BID PRN GTB PAIN; Start 11/08/18 at 03:30 Zinc Sulfate (Zinc Sulfate) 220 mg DAILY GTB Last administered on 11/15/18 10:09; Admin Dose 220 MG; Start 11/08/18 at 09:00 Amiodarone HCl (Cordarone) 200 mg DAILY GTB Last administered on 11/15/18 10:09; Admin Dose 200 MG; Start 11/08/18 at 09:00 Lactobacillus Acidophilus/ Rhamnosus (Culturelle) 1 cap BID GTB Last administered on 11/15/18 10:08; Admin Dose 1 CAP; Start 11/08/18 at 09:00 Lansoprazole (Prevacid) 30 mg DAILY@06 GTB Last administered on 11/15/18 04:59; Admin Dose 30 MG; Start 11/08/18 at 06:00 Levothyroxine Sodium (Synthroid) 125 mcg BEFORE BREAKFAST GTB Last admin istered on 11/15/18 05:00; Admin Dose 125 MCG; Start 11/09/18 at 07:00 Heparin Sodium (Porcine) (Heparin (5000 Units/1ml)) 5,000 unit BID SC Last administered on 11/12/18 08:40; Admin Dose 5,000 UNIT; Start 11/08/18 at 21:00; Status Hold Multivitamins (Multivitamin) 30 ml DAILY GTB Last administered on 11/15/18 10:07; Admin Dose 30 ML; Start 11/09/18 at 10:00 Caspofungin 50 mg/ Sodium Chloride 250 ml @ 250 mls/hr Q24H IVPB Last administered on 11/14/18 14:10; Admin Dose 250 MLS/HR; Start 11/10/18 at 13:00 Meropenem/Sodium Chloride 50 ml @ 100 mls/hr Q12 IVPB Last administered on 11/15/18 10:08; Admin Dose 100 MLS/HR; Start 11/09/18 at 21:00 Sodium Hypochlorite (Dakins Diluted ()) 1 applic DAILY TP Last administered on 11/15/18 10:10; Admin Dose 1 APPLIC; Start 11/09/18 at 21:00 Collagenase (Santyl) This patient yen... DAILY TOP Last administered on 8/5/19at 10:10; Admin Dose 1 APPLIC; Start 11/10/18 at 10:00 Insulin Aspart (Novolog Insulin Pen) NOVOLOG *MILD* ALGORI... Q4 SC ; Start 11/11/18 at 01:00 Dextrose (D50w Syringe) 50 ml PRN PRN IV DECREASED GLUCOSE Last administered on 11/14/18at 21:45; Admin Dose 50 ML; Start 11/11/18 at 00:30 Midodrine (Proamatine) 5 mg TID@09,13,17 NGT Last administered on 11/15/18at 10:08; Admin Dose 5 MG; Start 11/12/18 at 09:24 Metoclopramide HCl (Reglan) 5 mg Q6 IV Last administered on 11/15/18at 05:00; Admin Dose 5 MG; Start 11/12/18 at 18:00 Furosemide (Lasix) 40 mg DAILY IV Last administered on 11/15/18at 10:12; Admin Dose 40 MG; Start 11/13/18 at 09:00 Loperamide HCl (Imodium 1mg/5ml (10 ml Cup)) 2 mg QID PRN GTB DIARRHEA Last administered on 11/13/18at 14:21; Admin Dose 2 MG; Start 11/13/18 at 14:00 Magnesium Hydroxide (Milk Of Mag) 30 ml DAILY PRN GTB CONSTIPATION; Start 11/14/18 at 07:00 Dextrose 1,000 ml @ 50 mls/hr Q20H IV Last administered on 11/15/18at 10:35; Admin Dose 50 MLS/HR; Start 11/15/18 at 08:00 Magnesium Oxide (Mag-Ox 400) 400 mg BID NGT ; Start 11/16/18 at 09:00 JASON MEHTA Nov 15, 2018 12:41
[2018-11-15] MEDS: CASPOFUNGIN 50 MG in SOD CHLORIDE 0.9% 250 ML IVPB SCH (12:56)
[2018-11-15] MEDS ORDERED: LOPERAMIDE HCL 1 MG/5 ML LIQUID (10 ML UD CUP) GTB SCH (13:00)
--- NOTE | 2018-11-15 15:54 | CONS ---
Assessment/Plan Assessment/Plan Hospital Course (Demo Recall) No acute changes overnight patient looks comfortable no fevers overnight. WBC today 11 platelets 64 neutrophils 51.6 BUN 9 creatinine 2.14 MICROBIOLOGY: Blood cultures since admission negative. Endotracheal aspirate grew pseudomonas and Klebsiella extended-spectrum beta-lactamase. Urine culture grew Wandy albicans. ANTIMICROBIALS: The patient remains on: 1. Cancidas. 2. Meropenem. INDWELLINGS: Trach, PEG, Mcintyre, left subclavian triple-lumen catheter. PHYSICAL EXAMINATION: GENERAL: This is a chronically ill-appearing, elderly man who is noncommunicative, in no distress. HEENT: Head atraumatic, normocephalic. NECK: Supple. Tracheostomy present. CHEST: Rise symmetrical. Breath sounds diminished to bases. HEART: S1, S2. ABDOMEN: Soft, bowel sounds present. EXTREMITIES: Cyanotic with trace edema. SKIN: Patient has unstageable sacral decubitus ulcer. ASSESSMENT: 1. Severe sepsis with shock. 2. Urinary tract infection. 3. Healthcare-associated pneumonia. 4. Acute renal failure. 5. Left kidney lesion of unclear significance. 6. Atrial fibrillation. 7. History of brain tumor, status post craniotomy. 8. History of deep venous thrombosis. PLAN: Remains unchanged, continue present care and antibiotics Consultation Date/Type/Reason Admit Date/Time Nov 07, 2018 at 18:54 Initial Consult Date 11/08/18 Type of Consult id Requesting Provider: KYLE SEVERINO Date/Time of Note DATE: 11/15/18 TIME: 15:53 Exam/Review of Systems Exam Vitals Vital Signs Date Temp Pulse Resp B/P (MAP) Pulse Ox O2 O2 Flow FiO2 Time Delivery Rate 11/15/18 98.0 68 20 111/55 98 15:41 (73) 11/15/18 30 05:46 11/14/18 Mechanical 15:29 Ventilator Trach Collar Intake and Output 11/14/18 11/14/18 11/15/18 1515:00 23:00 07:00 IntakeIntake Total 140 ml 690 ml OutputOutput Total 1490 ml 700 ml BalanceBalance -1350 ml -10 ml Results Result Diagram: 11/15/18 0614 11/15/18 0615 Results 24hrs Laboratory Tests Test 11/14/18 16:43 11/14/18 21:37 11/14/18 22:02 11/14/18 22:21 Bedside Glucose 70 59 L 169 130 Test 11/15/18 01:20 11/15/18 04:49 11/15/18 05:00 11/15/18 06:14 Bedside Glucose 89 81 Blood Gas Specimen Blood arterial Source Arterial Blood 11/15/2018 5:00:26 Date Drawn AM Arterial Blood pH 7.388 (Temp corrected) Arterial Blood 28.2 L pCO2 (Temp correct) Arterial Blood pO2 136.6 H (Temp corrected) Arterial Blood 16.6 L HCO3 Arterial Blood -7.3 L Base Excess Arterial Blood 98.7 Oxygen Saturation Jfef Test N/A Arterial Blood Gas LB Puncture Site Arterial 0.4 Blood Carboxyhemog lobin Arterial Blood 0.5 Methemoglobin Blood Gas A-a O2 44.2 H Differential Oxyhemoglobin 97.8 Percent Blood Gas 37.0 Temperature Blood Gas 12.0 Respiration Rate Blood Gas Actual 32 Respiration Rate Blood Gas Modality VENT - AC FiO2 30.0 Blood Gas Tidal 400.0 Volume Blood Gas Low PEEP 0 Setting Blood Gas Notified UP Whom Blood Gas Notified 11/15/2018 5:19:53 Time AM White Blood Count 11.0 #H Red Blood Count 2.97 L Hemoglobin 8.1 L Hematocrit 27.3 L Mean Corpuscular 91.9 Volume Mean Corpuscular 27.3 L Hemoglobin Mean Corpuscular 29.7 L Hemoglobin Concent Red Cell 26.1 H Distribution Width Platelet Count 64 L Mean Platelet 11.6 H Volume Immature 0.500 H Granulocytes % Neutrophils % 28.9 L Lymphocytes % 51.6 H Monocytes % 12.6 H Eosinophils % 5.7 Basophils % 0.7 Nucleated Red 0.4 H Blood Cells % Immature 0.060 H Granulocytes # Neutrophils # 3.2 Lymphocytes # 5.7 H Monocytes # 1.4 H Eosinophils # 0.6 H Basophils # 0.1 Nucleated Red 0.0 Blood Cells # Test 11/15/18 06:15 11/15/18 10:05 11/15/18 12:44 11/15/18 13:30 Sodium Level 149 H Potassium Level 3.5 Chloride Level 126 H Carbon Dioxide 17 L Level Anion Gap 6 Blood Urea 9 Nitrogen Creatinine 2.14 H Est Glomerular Filtrat Rate mL/min Glucose Level 84 Lactic Acid Level 2.1 *H 1.6 Calcium Level 8.0 L Phosphorus Level 3.3 Magnesium Level 1.7 Bedside Glucose 74 90 Medications Medication Current Medications Ondansetron HCl (Zofran Inj) 4 mg Q6H PRN IV NAUSEA AND/OR VOMITING; Start 11/07/18 at 20:00 Albuterol (Ventolin Hfa) 4 puff Q2H RESP THERAPY PRN INH SHORTNESS OF BREATH; Start 11/07/18 at 20:00 Ipratropium [place] (Atrovent Hfa) 4 puff Q2H RESP THERAPY PRN INH SHORTNESS OF BREATH; Start 11/07/18 at 20:00 Acetaminophen (Tylenol Liquid) 650 mg Q4H PRN GTB MILD PAIN LEVEL 1-3; Start 11/08/18 at 03:30 Ascorbic Acid (Vitamin C) 500 mg DAILY GTB Last administered on 11/15/18 10:09; Admin Dose 500 MG; Start 11/08/18 at 09:00 Epoetin Adrian-epbx (Retacrit (Esrd)) 8,000 unit MONWEDFRI@1700 SC Last administered on 11/12/18at 17:35; Admin Dose 8,000 UNIT; Start 11/08/18 at 17:00 Al Hydrox/Mg Hydrox/Simethicone (Mag-Al Plus) 30 ml Q4H PRN GTB GASTROINTESTINAL UPSET; Start 11/08/18 at 03:30 Sodium Biphosphate/ Sodium Phosphate (Fleet Enema) 133 ml DAILY PRN [place] CONSTIPATION; Start 11/08/18 at 03:30 Ondansetron HCl (Zofran Tab) 4 mg Q6H PRN GTB NAUSEA AND/OR VOMITING; Start 11/08/18 at 03:30 Eye Lubricant (Artificial Tears Oph) 1 drop TID BOTH EYES Last administered on 11/15/18 12:56; Admin Dose 1 DROP; Start 11/08/18 at 09:00 Tramadol HCl (Ultram) 50 mg BID PRN GTB PAIN; Start 11/08/18 at 03:30 Zinc Sulfate (Zinc Sulfate) 220 mg DAILY GTB Last administered on 11/15/18 10:09; Admin Dose 220 MG; Start 11/08/18 at 09:00 Amiodarone HCl (Cordarone) 200 mg DAILY GTB Last administered on 11/15/18 10:09; Admin Dose 200 MG; Start 11/08/18 at 09:00 Lactobacillus Acidophilus/ Rhamnosus (Culturelle) 1 cap BID GTB Last administered on 11/15/18 10:08; Admin Dose 1 CAP; Start 11/08/18 at 09:00 Lansoprazole (Prevacid) 30 mg DAILY@06 GTB Last administered on 11/15/18 04:59; Admin Dose 30 MG; Start 11/08/18 at 06:00 Levothyroxine Sodium (Synthroid) 125 mcg BEFORE BREAKFAST GTB Last administered on 11/15/18 05:00; Admin Dose 125 MCG; Start 11/09/18 at 07:00 Heparin Sodium (Porcine) (Heparin (5000 Units/1ml)) 5,000 unit BID SC Last administered on 11/12/18 08:40; Admin Dose 5,000 UNIT; Start 11/08/18 at 21:00; Status Hold Multivitamins (Multivitamin) 30 ml DAILY GTB Last administered on 11/15/18 10:07; Admin Dose 30 ML; Start 11/09/18 at 10:00 Caspofungin 50 mg/ Sodium Chloride 250 ml @ 250 mls/hr Q24H IVPB Last administered on 11/15/18 12:56; Admin Dose 250 MLS/HR; Start 11/10/18 at 13:00 Meropenem/Sodium Chloride 50 ml @ 100 mls/hr Q12 IVPB Last administered on 11/15/18 10:08; Admin Dose 100 MLS/HR; Start 11/09/18 at 21:00 Sodium Hypochlorite (Dakins Diluted (40)) 1 applic DAILY TP Last administered on 11/15/18 10:10; Admin Dose 1 APPLIC; Start 11/09/18 at 21:00 Collagenase (Santyl) This patient yen... DAILY TOP Last administered on 11/15/18 10:10; Admin Dose 1 APPLIC; Start 11/10/18 at 10:00 Insulin Aspart (Novolog Insulin Pen) NOVOLOG *MILD* ALGORI... Q4 SC ; Start 11/11/18 at 01:00 Dextrose (D50w Syringe) 50 ml PRN PRN IV DECREASED GLUCOSE Last administered on 11/14/18 21:45; Admin Dose 50 ML; Start 11/11/18 at 00:30 Midodrine (Proamatine) 5 mg TID@09,13,17 NGT Last administered on 11/15/18 13:14; Admin Dose 5 MG; Start 11/12/18 at 09:24 Metoclopramide HCl (Reglan) 5 mg Q6 IV Last administered on 11/15/18 13:13; Admin Dose 5 MG; Start 11/12/18 at 18:00 Furosemide (Lasix) 40 mg DAILY IV Last administered on 11/15/18 10:12; Admin Dose 40 MG; Start 11/13/18 at 09:00 Loperamide HCl (Imodium 1mg/5ml (10 ml Cup)) 2 mg QID PRN GTB DIARRHEA Last administered on 11/13/18 14:21; Admin Dose 2 MG; Start 11/13/18 at 14:00 Magnesium Hydroxide (Milk Of Mag) 30 ml DAILY PRN GTB CONSTIPATION; Start 11/14/18 at 07:00 Dextrose 1,000 ml @ 50 mls/hr Q20H IV Last administered on 11/15/18 10:35; Admin Dose 50 MLS/HR; Start 11/15/18 at 08:00 Magnesium Oxide (Mag-Ox 400) 400 mg BID NGT ; Start 11/16/18 at 09:00 Loperamide HCl (Imodium 1mg/5ml (10 ml Cup)) 2 mg DAILY GTB Last administered on 11/15/18 13:13; Admin Dose 2 MG; Start 11/15/18 at 13:00 FITO MONTEZ NP Nov 15, 2018 15:54
[2018-11-15] MEDS: EPOETIN ALFA-EPBX (ESRD) 4,000 UNIT/ML VIAL SC SCH (18:29)
[2018-11-16] MEDS ORDERED: MAGNESIUM OXIDE 400 MG TAB NGT SCH (09:00)
--- NOTE | 2018-11-19 06:25 | DS ---
Date/Time of Note Date/Time of Note DATE: 11/19/18 TIME: 06:25 Discharge Summary Admission/Discharge Info Admit Date/Time Nov 07, 2018 at 18:54 Discharge Date/Time Nov 15, 2018 at 19:25 Discharge Diagnosis Objective: 82-year-old male chronically encephalopathic from records, it seems this was secondary to prior brain tumor (meningioma) status post craniotomy and partial resection also with volume loss and chronic subdural collection who is ventilator dependent and on tube feeds and resides in the skilled nursing and was sent to us for altered mentation and hypotension. The patient is also said to have had a CVA in the past. Is currently managed as follows: 1. Severe sepsis with shock thought to be secondary to bilateral pneumonia and UTI -Urine cultures grew Wandy -Endotracheal cultures growing pesudomonas and K Penumo esbl, same as last visit, slightly more resistant this time 2. Septic shock -shock resolved, now off pressors 3. Acute renal insufficiency with associated metabolic acidosis: improved 4. Paroxysmal atrial fibrillation currently rate controlled 5. Recent C. difficile colitis as well as DVT, September 2018 -cleared for DVT prophylaxis, will need to contact original surgeon if patient is cleared for DVT treatment, patient however with thrombocytopenia 6. Chronic ventilator dependent respiratory failure status post trach -Continue ventilator management 7. Hx of bran tumor s/p craniotomy about 3 months ago and prev CVA with chronic encephalopathy -family has noted minimal improvements in the last 3months, patient is moving LUE a bit and opens eyes spontaneously -Family has been updated that patient is likely never going to have significant recovery 8. Chronic neurogenic dysphagia on tube feedings 9. Chronic cardiomyopathy with last known EF of 35% 10 Poorly controlled hypothyroidism -continue Synthroid. 11. Chronic hypochromic anemia -Transfused 1 unit of packed red cells so far this admission, 12. Thrombocytopenia -Likely consumptive, No evidence of bleeding at this time, . Patient Condition: Stable Consults Pulmonary: Shaji Dorantes Palliative: Tayo Santana ID : Michael Mckeon GI: Jerri Grace Nephro: Albert Sánchez DO . Hospital Course 82-year-old male chronically encephalopathic from records, it seems this was secondary to prior brain tumor status post craniotomy and partial resection also with volume loss and chronic subdural collection who is ventilator dependent and on tube feeds and resides in the skilled nursing and was sent to us for altered mentation and hypotension. The patient is also said to have had a CVA in the past. He was managed for Severe sepsis with septic shock from PNA and UTI and is now in stable condition to return to SNF to complete abx course. However, patient has a very poor correction prognosis and is not expected to have much more meaningful recovery, but the family seemed at odds regarding his care. He would ideally be a candidate for GIP hospice, and at the very miniminum a DNR / DNI. Hence a bioethic consult was put in to ethically help determine goals and extent of care. Afyer a very extended meeting about 3 hours, with patient's and children, family opted to make patient DNR/DNI and for selective treatment only. Polst form was also filled. Patient will be discharged back to SNF in stable condition with family's awareness that he is an extremely high readmiss ion risk and has poor hope of any further meaningful recovery . Home Meds Reported Medications Amiodarone Hcl* (Amiodarone Hcl*) 200 Mg Tablet, 400 MG GTB BID, #180 TAB 11/07/18 Metoprolol Succinate* (Toprol XL*) 25 Mg Tab.sr.24h, 25 MG GTB DAILY, #30 TAB 11/07/18 Ferrous Sulfate* (Ferrous Sulfate*) 325 Mg Tabec, 330 MG GTB BID, TAB 11/07/18 Epoetin fox* (Epogen*) 4,000 Unit/1 Ml Vial, 8000 [facility], VIAL HOLD IF >10.5 11/07/18 Omeprazole* (Omeprazole*) 40 Mg Capsule.dr, 40 MG GTB DAILY, #30 CAP 11/07/18 Cran/Vitc/Mannose/Inulin/Brom (Uti-Stat Liquid) 3,875 Mg/30 Ml Liquid, 3875 MG GTB DAILY 11/07/18 Cranberry Extract (Cranberry) 425 Mg Capsule, 425 MG GTB DAILY, CAP 11/07/18 Magaldrate/Simethicone* (Mag-Al Plus Suspension*) 30 Ml Oral.susp, 30 ML GTB Q4 PRN for GASTROINTESTINAL UPSET, ML 11/07/18 Vancomycin HCl in Dextrose 5 % (Vancomycin 750 mg/250 ml-D5w) 750 Mg/250 Ml Plast..bag, 250 MG IV Q6 11/07/18 Potassium Chloride* (K-Dur*) 20 Meq Tab.prt.sr, 40 MEQ GTB DAILY, TAB.SA 11/07/18 Lactobacillus Acidophilus/Pect (Acidophilus-Pectin Capsule) 1 Each Capsule, 1 EACH GTB DAILY, CAP MIX WITH APPLE SAUCE 11/07/18 Sulfamethoxazole/Trimethoprim* (Bactrim Ds* Tablet) 1 Each Tablet, 1 TAB GTB BID, TAB 11/07/18 Tramadol Hcl* (Ultram*) 50 Mg Tablet, 50 MG GTB BID PRN for PAIN MANAGEMENT, TAB 10/02/18 Magnesium Hydroxide* (Milk Of Magnesia*) 400 Mg/5 Ml Oral.susp, 30 ML GTB DAILY, ML 10/02/18 Ondansetron Hcl* (Zofran*) 4 Mg Tablet, 4 MG GTB Q6H PRN for NAUSEA AND OR VOMITING, TAB 10/02/18 Levothyroxine Sodium* (Levoxyl*) 50 Mcg Tablet, 50 MCG GTB BEFORE BREAKFAST, #30 TAB 10/02/18 Polyvinyl Alcohol (Tears Again) 15 Ml Drops, 1 DRP BOTH EYES TID, BOTTLE 10/02/18 Acetaminophen* (Acetaminophen*) 650 Mg Tablet, 650 MG GTB Q4 PRN for MILD PAIN LEVEL 1-3, #30 TAB FOR FEVER AND TRACH CHANGE 10/02/18 Acetaminophen* (Acetaminophen*) 500 MG Extra Strength Tablet, 1000 MG GTB Q4 PRN for MODERATE PAIN LEVEL 4-6, TAB 10/02/18 Zinc Sulfate* (Zinc Sulfate*) 220 Mg Cap, 220 MG GTB DAILY, CAP 10/02/18 Ascorbic Acid* (Vitamin C*) 500 Mg Capsule.sa, 500 MG GTB DAILY, CAP 10/02/18 Multivitamin with Minerals (Daily Vitamin Formula-Minerals) 1 Each Tablet, 1 EACH GTB DAILY, TAB 10/02/18 Amino Acids/Protein Hydrolys (Pro-Stat Awc Liquid) 30 Ml Liquid, 30 ML GTB DAILY SUGAR FREE 10/02/18 Na Phos,M-B/Na Phos,Di-Ba (ENEMA ESIZN-DE-NRR) 133 Ml Enema, 133 ML RC EVERY 2 DAYS PRN for CONSTIPATION, ENEMA 10/02/18 Bisacodyl (Dulcolax) 10 Mg Supp.rect, 10 MG RC DAILY PRN for CONSTIPATION, SUPP.RECT 10/02/18 Docusate Sodium* (Colace*) 100 Mg Capsule, 100 MG GTB BID, #60 CAP 10/02/18 Follow-up Plan Back to SNF . Primary Care Provider Alfonso Magaña MD Time spent on discharge: >3hrs KYLE SEVERINO Nov 19, 2018 06:25
== END 2018-11-15 19:25 | DRG 870 ==
LOC: E/R 13:45 → ICU 18:54 → 6WM 11-14 10:38
PROVIDERS: ADMIT Internal Medicine; ATTEND Family Medicine
PROC: 02HV33Z Insertion of Infusion Device into Superior Vena Cava, Percutaneous Approach (ICD-10-PCS; principal; 2018-11-07)
PROC: 5A1955Z Respiratory Ventilation, Greater than 96 Consecutive Hours (ICD-10-PCS; 2018-11-07)
PROC: 30233N1 Transfusion of Nonautologous Red Blood Cells into Peripheral Vein, Percutaneous Approach (ICD-10-PCS; 2018-11-07)
DX: A41.9 Sepsis, unspecified organism (principal); J18.9 Pneumonia, unspecified organism; L89.154 Pressure ulcer of sacral region, stage 4; R65.21 Severe sepsis with septic shock; G92 Toxic encephalopathy; N17.0 Acute kidney failure with tubular necrosis; E43 Unspecified severe protein-calorie malnutrition; Z99.11 Dependence on respirator [ventilator] status; J96.10 Chronic respiratory failure, unspecified whether with hypoxia or hypercapnia; E87.0 Hyperosmolality and hypernatremia; E87.2 Acidosis; E87.3 Alkalosis; I69.954 Hemiplegia and hemiparesis following unspecified cerebrovascular disease affecting left non-dominant side; G93.49 Other encephalopathy; I42.8 Other cardiomyopathies; C71.9 Malignant neoplasm of brain, unspecified; B37.49 Other urogenital candidiasis; E87.4 Mixed disorder of acid-base balance; I48.0 Paroxysmal atrial fibrillation; I10 Essential (primary) hypertension; D50.9 Iron deficiency anemia, unspecified; E03.9 Hypothyroidism, unspecified; E87.6 Hypokalemia; E78.5 Hyperlipidemia, unspecified; I69.991 Dysphagia following unspecified cerebrovascular disease; R13.19 Other dysphagia; N28.9 Disorder of kidney and ureter, unspecified; R19.7 Diarrhea, unspecified; E87.70 Fluid overload, unspecified; D69.6 Thrombocytopenia, unspecified; Z93.0 Tracheostomy status; Z86.718 Personal history of other venous thrombosis and embolism; Z93.1 Gastrostomy status; Z66 Do not resuscitate
CPT/HCPCS: 36415; 36430; 36600; 49465; 70450; 71045; 74018; 76775; 80048; 80053; 80069; 80202; 81001; 81003; 82043; 82803; 82962; 83540; 83605; 83735; 83930; 83935; 84100; 84155; 84300; 84439; 84443; 84481; 84484; 85025; 85610; 85651; 85730; 86140; 86850; 86900; 86901; 86920; 87070; 87081; 87086; 89220; 93005; 94002; 94003; 94770; 95819; 96374; 96375; C1751; J0692; J1644; J1815; J1940; J2185; J2543; J2765; J3370; J3475; J3480; J7030; J7040; J7042; J7050; J7070; P9016; P9047; Q5105; Q9967

== ENCOUNTER 2018-11-20 16:08 | Inpatient (IN) | payer OTHER, MEDICAID ==
[~2018-11-20] VITALS: Ht 162.6 cm; Wt 63.2 kg
[~2018-11-20 16:08] MED LIST changes: -AMIO200T4 PO; -ATOR40TA68 GTB; -METO-335 PO; -PANT40SU GTB; -Vancomycin Oral Syringe GTB
[2018-11-20 22:30] VITALS: Ht 162.6 cm; Wt 63.2 kg
[2018-11-25 18:00] VITALS: BP 121/85; PULSE 67; RESP 14
== END 2018-11-25 18:29 | DRG 870 ==
LOC: E/R 16:08 → 6WM 17:36 → ICU 11-21 14:19
PROVIDERS: ADMIT Internal Medicine; ATTEND Internal Medicine
PROC: 5A1955Z Respiratory Ventilation, Greater than 96 Consecutive Hours (ICD-10-PCS; principal; 2018-11-20)
PROC: 4A133R1 Monitoring of Arterial Saturation, Peripheral, Percutaneous Approach (ICD-10-PCS; 2018-11-20)
PROC: 02HV33Z Insertion of Infusion Device into Superior Vena Cava, Percutaneous Approach (ICD-10-PCS; 2018-11-21)
PROC: 30233N1 Transfusion of Nonautologous Red Blood Cells into Peripheral Vein, Percutaneous Approach (ICD-10-PCS; 2018-11-22)
DX: A41.9 Sepsis, unspecified organism (principal); R65.21 Severe sepsis with septic shock; J18.9 Pneumonia, unspecified organism; E03.5 Myxedema coma; E43 Unspecified severe protein-calorie malnutrition; N18.4 Chronic kidney disease, stage 4 (severe); E87.0 Hyperosmolality and hypernatremia; G93.49 Other encephalopathy; Z99.11 Dependence on respirator [ventilator] status; J96.10 Chronic respiratory failure, unspecified whether with hypoxia or hypercapnia; B37.41 Candidal cystitis and urethritis; N17.9 Acute kidney failure, unspecified; E87.2 Acidosis; E16.2 Hypoglycemia, unspecified; I12.9 Hypertensive chronic kidney disease with stage 1 through stage 4 chronic kidney disease, or unspecified chronic kidney disease; Z66 Do not resuscitate; D69.6 Thrombocytopenia, unspecified; Z93.0 Tracheostomy status; Z93.1 Gastrostomy status; I48.0 Paroxysmal atrial fibrillation; E03.9 Hypothyroidism, unspecified; Z86.011 Personal history of benign neoplasm of the brain; R62.7 Adult failure to thrive; D64.9 Anemia, unspecified; R13.10 Dysphagia, unspecified; I25.5 Ischemic cardiomyopathy; L89.150 Pressure ulcer of sacral region, unstageable; Z86.73 Personal history of transient ischemic attack (TIA), and cerebral infarction without residual deficits; Z68.23 Body mass index [BMI] 23.0-23.9, adult; Z86.718 Personal history of other venous thrombosis and embolism
CPT/HCPCS: 36415; 36430; 36569; 36600; 71045; 76937; 80048; 80053; 82533; 82803; 82962; 83036; 83605; 83735; 84100; 84132; 84145; 84436; 84443; 84479; 84484; 85025; 85610; 86850; 86900; 86901; 86920; 87081; 87086; 89220; 93005; 94002; 94003; J0833; J0885; J1720; J1815; J2185; J3370; J3475; J3480; J7040; J7042; J7050; J7070; P9016; P9047